=== PATIENT | female | born 1935 | race Caucasian/White ===

== ENCOUNTER → 2017-08-25 | Outpatient (CLI) | payer MEDICARE, MEDICAID, SELFPAY | PROVIDERS: Family Provider Internal Medicine Adolescent Medicine; Visit Provider Orthopaedic Surgery | DX: Z48.89 Encounter for other specified surgical aftercare (principal) | CPT/HCPCS: 73110 ==

== ENCOUNTER → 2017-09-15 14:21 | Outpatient (CLI) | payer MEDICARE, MEDICAID, SELFPAY ==
[2017-09-15 15:40] LABS: Ferritin 15 ng/mL (8-388)
[2017-09-17 08:27] LABS: Iron 19 ug/dL (27-139); UIBC 395 ug/dL (118-369)
[2017-09-17 17:02] LABS: Iron Saturation 5 % (15-55)
== END ==
PROVIDERS: PCP Internal Medicine Adolescent Medicine; Visit Provider Internal Medicine
DX: D50.9 Iron deficiency anemia, unspecified (principal)
CPT/HCPCS: 36415; 82728; 83550

== ENCOUNTER 2017-09-29 14:23 | Outpatient (CLI) | payer MEDICARE, MEDICAID, SELFPAY ==
[2017-09-29 15:15] VITALS: BP 122/47; PULSE 52; RESP 18; TEMP 36.6; O2SAT 100; BMI 34.7
[2017-09-29 15:30] VITALS: BP 139/64; PULSE 52; RESP 18
[2017-09-29 15:45] VITALS: BP 148/69; PULSE 57; RESP 18
[2017-09-29 16:00] VITALS: BP 146/65; PULSE 53; RESP 18
[2017-09-29 16:15] VITALS: BP 122/51; PULSE 58; RESP 18
== END 2017-09-29 16:30 | disposition home or self-care (01) ==
PROVIDERS: PCP Internal Medicine Adolescent Medicine; Visit Provider Internal Medicine
DX: D50.9 Iron deficiency anemia, unspecified (principal); T45.4X5A Adverse effect of iron and its compounds, initial encounter
CPT/HCPCS: 96365; J1756

== ENCOUNTER 2017-10-05 14:21 | Outpatient (CLI) | payer MEDICARE, MEDICAID, SELFPAY ==
[2017-10-05 14:21] VITALS: BMI 34.7
[2017-10-05 14:41] VITALS: BP 148/62; PULSE 69; RESP 18; TEMP 36.7; O2SAT 96
[2017-10-05 14:53] VITALS: BP 146/62; PULSE 58; RESP 18
[2017-10-05 15:05] VITALS: BP 153/56; PULSE 59; RESP 18
[2017-10-05 15:31] VITALS: BP 142/62; PULSE 55; RESP 18
== END 2017-10-05 15:40 | disposition home or self-care (01) ==
LOC: INF 14:21
PROVIDERS: Family Provider Internal Medicine Adolescent Medicine; PCP Internal Medicine Adolescent Medicine; Visit Provider Internal Medicine
DX: D50.9 Iron deficiency anemia, unspecified (principal); T45.4X5A Adverse effect of iron and its compounds, initial encounter
CPT/HCPCS: 96365; J1756

== ENCOUNTER 2017-10-15 14:25 | Outpatient (CLI) | payer MEDICARE, MEDICAID, SELFPAY ==
[2017-10-15 14:55] VITALS: BP 135/60; PULSE 57; RESP 18
[2017-10-15 15:25] VITALS: BP 135/63; PULSE 57; RESP 16
== END 2017-10-15 15:45 | disposition home or self-care (01) ==
LOC: INF 14:31
PROVIDERS: Family Provider Internal Medicine Adolescent Medicine; PCP Internal Medicine Adolescent Medicine; Visit Provider Internal Medicine
DX: D50.9 Iron deficiency anemia, unspecified (principal); T45.4X5A Adverse effect of iron and its compounds, initial encounter
CPT/HCPCS: 96365; J1756

== ENCOUNTER 2017-10-20 13:55 | Outpatient (CLI) | payer MEDICARE, MEDICAID, SELFPAY ==
[2017-10-20 14:25] VITALS: BP 143/57; PULSE 53; RESP 18; TEMP 36.4
[2017-10-20 14:55] VITALS: BP 148/58; PULSE 55; RESP 18
== END 2017-10-20 15:15 | disposition home or self-care (01) ==
LOC: INF 14:10
PROVIDERS: Family Provider Internal Medicine Adolescent Medicine; PCP Internal Medicine Adolescent Medicine; Visit Provider Internal Medicine
DX: D50.9 Iron deficiency anemia, unspecified (principal); T45.4X5A Adverse effect of iron and its compounds, initial encounter
CPT/HCPCS: 96365; J1756

== ENCOUNTER → 2017-10-25 13:16 | Outpatient (CLI) | payer MEDICARE, MEDICAID, SELFPAY ==
[2017-10-25 13:47] LABS: Basophils % 0.6 % (0.1-2.0); Eosinophils # 0.1 K/mm3 (0.0-0.4); Eosinophils % 1.7 % (0.1-12.0); Hematocrit 34.3 % (37.0-47.0); Hemoglobin 10.2 g/dL (12.2-16.2); Lymphocytes # 0.9 K/mm3 (0.7-4.5); Lymphocytes % 17.5 K/mm3 (10-50); Mean Corpuscular HGB Conc 29.8 g/dL (31.8-35.4); Mean Corpuscular Hemoglobin 26.6 pg (27.0-31.2); Mean Corpuscular Volume 89.2 fl (81-99); Mean Platelet Volume 7.7 fl (7.4-10.4); Monocytes # 0.3 K/mm3 (0.1-1.0); Monocytes % 6.6 % (1.7-9.3); Neutrophils # 3.7 K/mm3 (1.8-7.8); Neutrophils % 73.5 % (37.0-80.0); Platelet Count 251 K/mm3 (142-424); Red Blood Count 3.85 M/mm3 (4.20-5.40); Red Cell Distribution Width 21.1 % (11.5-17.5); White Blood Count 5.1 K/mm3 (4.8-10.8)
[2017-10-25 15:26] LABS: Alanine Aminotransferase 18 U/L (12-78); Albumin Level 3.4 gm/dL (3.4-5.0); Albumin/Globulin Ratio 1.3 (1.1-1.8); Alkaline Phosphatase 181 U/L (46-116); Anion Gap 16.6 mEq/L (5-15); Aspartate Amino Transferase 9 U/L (15-37); Bilirubin,Total 0.4 mg/dL (0.2-1.0); Blood Urea Nitrogen 22 mg/dL (7-18); Calcium 8.9 mg/dL (8.5-10.1); Carbon Dioxide 22 mmol/L (21.0-32.0); Chloride 108 mmol/L (98-107); Creatinine,Serum 1.67 mg/dL (0.55-1.02); Estimated Glomerular Filt Rate 29 ml/min (>60); GFR (African American) 36 ML/MIN (>60); Globulin 2.7 gm/dl (1.3-3.2); Glucose 102 mg/dL (74-106); Potassium 4.6 mmoL/L (3.5-5.1); Sodium 142 mmol/L (136-145); Total Protein,Serum 6.1 gm/dL (6.4-8.2)
[2017-10-25 15:55] LABS: Ferritin 251 ng/mL (8-388)
[2017-10-26 08:21] LABS: Iron 87 ug/dL (27-139); UIBC 236 ug/dL (118-369)
[2017-10-27 06:40] LABS: Iron Saturation 27 % (15-55)
== END ==
PROVIDERS: PCP Internal Medicine Adolescent Medicine; Visit Provider Internal Medicine
DX: D50.9 Iron deficiency anemia, unspecified (principal); T45.4X5A Adverse effect of iron and its compounds, initial encounter
CPT/HCPCS: 36415; 80053; 82728; 83550; 85025

== ENCOUNTER → 2017-11-17 09:44 | Outpatient (CLI) | payer MEDICARE, MEDICAID, SELFPAY ==
[2017-11-17 10:09] LABS: Basophils # 0.1 K/mm3 (0-0.2); Basophils % 0.8 % (0.1-2.0); Eosinophils # 0.2 K/mm3 (0.0-0.4); Eosinophils % 2.9 % (0.1-12.0); Hematocrit 39.7 % (37.0-47.0); Hemoglobin 11.6 g/dL (12.2-16.2); Lymphocytes % 16.6 K/mm3 (10-50); Mean Corpuscular HGB Conc 29.2 g/dL (31.8-35.4); Mean Corpuscular Hemoglobin 27.8 pg (27.0-31.2); Mean Corpuscular Volume 95.4 fl (81-99); Mean Platelet Volume 7.8 fl (7.4-10.4); Monocytes # 0.5 K/mm3 (0.1-1.0); Neutrophils # 4.1 K/mm3 (1.8-7.8); Neutrophils % 71.7 % (37.0-80.0); Platelet Count 233 K/mm3 (142-424); Red Blood Count 4.16 M/mm3 (4.20-5.40); Red Cell Distribution Width 20.9 % (11.5-17.5); White Blood Count 5.7 K/mm3 (4.8-10.8)
== END ==
PROVIDERS: Visit Provider Internal Medicine
DX: D50.9 Iron deficiency anemia, unspecified (principal)
CPT/HCPCS: 36415; 85025

== ENCOUNTER → 2018-02-08 15:04 | Outpatient (CLI) | payer MEDICARE, MEDICAID, SELFPAY ==
[2018-02-08 15:30] LABS: Basophils # 0.1 K/mm3 (0-0.2); Basophils % 0.9 % (0.1-2.0); Eosinophils # 0.2 K/mm3 (0.0-0.4); Eosinophils % 3.4 % (0.1-12.0); Hematocrit 39.9 % (37.0-47.0); Lymphocytes # 1.2 K/mm3 (0.7-4.5); Lymphocytes % 20.8 K/mm3 (10-50); Mean Corpuscular HGB Conc 30.1 g/dL (31.8-35.4); Mean Corpuscular Hemoglobin 29.3 pg (27.0-31.2); Mean Corpuscular Volume 97.3 fl (81-99); Mean Platelet Volume 7.3 fl (7.4-10.4); Monocytes # 0.4 K/mm3 (0.1-1.0); Monocytes % 6.8 % (1.7-9.3); Neutrophils # 3.8 K/mm3 (1.8-7.8); Neutrophils % 68.1 % (37.0-80.0); Platelet Count 207 K/mm3 (142-424); Red Cell Distribution Width 14.6 % (11.5-17.5); White Blood Count 5.5 K/mm3 (4.8-10.8)
== END ==
PROVIDERS: Visit Provider Internal Medicine
DX: D50.9 Iron deficiency anemia, unspecified (principal)
CPT/HCPCS: 36415; 85025

== ENCOUNTER → 2018-02-09 10:14 | Outpatient (CLI) | payer MEDICARE, MEDICAID, SELFPAY ==
--- NOTE | 2018-02-09 10:38 | XR_ITS ---
XR chest 2V HISTORY: ITS.REASON: CAD ORDERING PHYSICIAN: Jeremy Pride MD PATIENT AGE: 82 years COMPARISON: None FINDINGS: There is mild cardiomegaly without failure. No lobar consolidation or collapse. Chronic changes are present. Surgical clips are present in the left axilla. There is a small hiatal hernia. No acute bony anomalies. IMPRESSION: Cardiomegaly with chronic changes and deny hernia, no acute finding
[2018-02-09 11:06] LABS: Activated Partial Thrombo Time 29.4 seconds (23.6-34.0); INR 0.94 (0.9-1.1); Prothrombin Time 10.2 seconds (9.4-11.8)
[2018-02-09 11:11] LABS: Basophils % 0.9 % (0.1-2.0); Eosinophils # 0.2 K/mm3 (0.0-0.4); Eosinophils % 3.3 % (0.1-12.0); Hematocrit 42.9 % (37.0-47.0); Hemoglobin 12.7 g/dL (12.2-16.2); Lymphocytes % 20.5 K/mm3 (10-50); Mean Corpuscular HGB Conc 29.7 g/dL (31.8-35.4); Mean Corpuscular Hemoglobin 28.7 pg (27.0-31.2); Mean Corpuscular Volume 96.6 fl (81-99); Mean Platelet Volume 7.4 fl (7.4-10.4); Monocytes # 0.4 K/mm3 (0.1-1.0); Monocytes % 8.7 % (1.7-9.3); Neutrophils # 3.3 K/mm3 (1.8-7.8); Neutrophils % 66.6 % (37.0-80.0); Platelet Count 224 K/mm3 (142-424); Red Blood Count 4.43 M/mm3 (4.20-5.40); Red Cell Distribution Width 14.6 % (11.5-17.5)
[2018-02-09 11:58] LABS: Hemoglobin A1C 5.9 % (0.0-7.0)
[2018-02-09 14:45] LABS: Anion Gap 13.4 mEq/L (5-15); Blood Urea Nitrogen 20 mg/dL (7-18); Calcium 9.4 mg/dL (8.5-10.1); Carbon Dioxide 29 mmol/L (21.0-32.0); Chloride 105 mmol/L (98-107); Creatinine,Serum 1.39 mg/dL (0.55-1.02); Estimated Glomerular Filt Rate 36 ml/min (>60); GFR (African American) 44 ML/MIN (>60); Glucose 88 mg/dL (74-106); Potassium 4.4 mmoL/L (3.5-5.1); Sodium 143 mmol/L (136-145)
== END ==
PROVIDERS: Visit Provider Internal Medicine Adolescent Medicine
DX: Z01.818 Encounter for other preprocedural examination (principal); I25.10 Atherosclerotic heart disease of native coronary artery without angina pectoris; R73.9 Hyperglycemia, unspecified; D50.9 Iron deficiency anemia, unspecified; Z51.81 Encounter for therapeutic drug level monitoring
CPT/HCPCS: 36415; 71046; 80048; 83036; 85025; 85610; 85730

== ENCOUNTER → 2018-02-10 10:37 | Outpatient (CLI) | payer MEDICARE, MEDICAID, SELFPAY ==
--- NOTE | 2018-02-10 10:49 | CA_ITS ---
PROCEDURE: 2-D M-mode and color Doppler study INDICATIONS FOR THE TEST: Chest pain COPD Heart Murmur Tobacco Smoking Palpitations Fatigue Syncope Edema HypertensionxDiabetes Mellitus Rheumatic Fever SOB CURIEL Obesity Hyperlipidemia Family History HD Additional History CAD PATIENT INFORMATION HEIGHT: 5'5'' WEIGHT: 204 GENDER: Female B/P:153/71 2-D/M-MODE INTERPRETATION: 2-D MEASUREMENTS OBSERVED VALUES IN CMS Right Ventricular Dimension (RVDd) 2.6 Interventricular Septum (Thickness)(IVsd) 1.3 Left Ventricular Internal Dimensions(LVIDd) 4.5 Left Ventricular Posterior Wall (Thickness)(LVPWd) 1.3 Aortic Root 2.7 Aortic Cusp Separation 1.3 Left Atrial Dimensions (LAD) 4.0 2D 1. Left atrium is mildly enlarged, left ventricle is normal size, there is mild concentric left ventricular hypertrophy, visually estimated ejection fraction 55% with no obvious regional wall motion abnormality. 2. The right atrium and right ventricle are normal size and contractility. 3. The aortic valve is thickened and calcified leaflet continue to display mobility. 4. The mitral and tricuspid valve leaflets are minimally thickened. 5. The pulmonic valve is poorly visualized. 6. No significant pericardial effusion noted. DOPPLER INTERROGATION: Doppler interrogation of the aortic, mitral and tricuspid valvular presence of mild mitral and tricuspid regurgitation, mild aortic insufficiency also seen. Calculated right ventricular systolic pressure is 37 mmHg consistent with mild pulmonary hypertension, grade 1 diastolic dysfunction seen with tissue Doppler evidence of raised left atrial pressure. CONCLUSION: 1. Mildly enlarged left atrium, normal left ventricular size, mild concentric left ventricular hypertrophy, visually estimated ejection fraction 55% with no obvious regional wall motion abnormality, grade 1 diastolic dysfunction seen with tissue Doppler evidence of raised left atrial pressure. 2. Mild aortic, mild mitral and tricuspid regurgitation, calculated right ventricular systolic pressure is 37 mmHg consistent with mild pulmonary hypertension. 3. No significant pericardial effusion noted.
== END ==
PROVIDERS: Family Provider Internal Medicine Adolescent Medicine; PCP Internal Medicine Adolescent Medicine; Visit Provider Internal Medicine Cardiovascular Disease
DX: I25.10 Atherosclerotic heart disease of native coronary artery without angina pectoris (principal); D50.9 Iron deficiency anemia, unspecified
CPT/HCPCS: 93306

== ENCOUNTER → 2018-04-07 13:25 | Outpatient (CLI) | payer MEDICARE, MEDICAID, SELFPAY ==
--- NOTE | 2018-04-07 13:29 | CA_ITS ---
PROCEDURE: 2-D M-mode and color Doppler study INDICATIONS FOR THE TEST: Chest pain COPD+ Heart Murmur+ Tobacco Smoking Palpitations Fatigue+ Syncope Edema+ Hypertension+Diabetes Mellitus Rheumatic Fever SOB+CURIEL+Obesity+Hyperlipidemia+ Family History HD Additional History CAD, NEW ONSET AFIB PATIENT INFORMATION HEIGHT: 65 WEIGHT:206 GENDER: Female B/P:159/74 2-D/M-MODE INTERPRETATION: 2-D MEASUREMENTS OBSERVED VALUES IN CMS Right Ventricular Dimension (RVDd) 2.8 Interventricular Septum (Thickness)(IVsd) 1.6 Left Ventricular Internal Dimensions(LVIDd) 4.6 Left Ventricular Posterior Wall (Thickness)(LVPWd) 1.2 Aortic Root 3.0 Aortic Cusp Separation 2.0 Left Atrial Dimensions (LAD) 5.4 2D 1. Left atrium is moderately enlarged, left ventricle is normal size, mild concentric left ventricular hypertrophy, visually estimated ejection fraction of 55% with no obvious regional wall motion abnormality. 2. The right atrium is mildly enlarged, right ventricle is mildly dilated with normal contractility. 3. The aortic valve is thickened and calcified, leaflet continue to display mobility. 4. The mitral and tricuspid valve leaflets are minimally thickened. 5. The pulmonic valve is poorly visualized. 6. No significant pericardial effusion noted. DOPPLER INTERROGATION: Doppler interrogation of the aortic, mitral and tricuspid valvular presence of mild aortic, mild mitral and moderate tricuspid regurgitation, calculated right ventricular systolic pressure is 45 mmHg consistent with moderate pulmonary hypertension. CONCLUSION: 1. Biatrial enlargement, normal left ventricular size, mild concentric left ventricular hypertrophy, visually estimated ejection fraction 55% with no obvious regional wall motion abnormality. 2. Mild aortic, mild mitral and moderate tricuspid regurgitation, likely related right ventricular systolic pressure is 45 mmHg consistent with moderate pulmonary hypertension. 3. Mildly enlarged right ventricle with normal contractility. 4. No significant pericardial effusion noted.
[2018-04-07 14:08] LABS: INR 1.13 (0.9-1.1); Prothrombin Time 11.6 seconds (9.4-11.8)
[2018-04-07 14:19] LABS: Basophils % 0.5 % (0.1-2.0); Eosinophils # 0.1 K/mm3 (0.0-0.4); Eosinophils % 2.5 % (0.1-12.0); Hematocrit 32.7 % (37.0-47.0); Hemoglobin 9.7 g/dL (12.2-16.2); Lymphocytes # 0.7 K/mm3 (0.7-4.5); Lymphocytes % 14.9 K/mm3 (10-50); Mean Corpuscular HGB Conc 29.5 g/dL (31.8-35.4); Mean Corpuscular Hemoglobin 27.3 pg (27.0-31.2); Mean Corpuscular Volume 92.5 fl (81-99); Mean Platelet Volume 7.4 fl (7.4-10.4); Monocytes # 0.4 K/mm3 (0.1-1.0); Monocytes % 8.3 % (1.7-9.3); Neutrophils # 3.4 K/mm3 (1.8-7.8); Neutrophils % 73.8 % (37.0-80.0); Platelet Count 284 K/mm3 (142-424); Red Blood Count 3.53 M/mm3 (4.20-5.40); Red Cell Distribution Width 15.5 % (11.5-17.5); White Blood Count 4.6 K/mm3 (4.8-10.8)
[2018-04-07 14:33] LABS: Anion Gap 10.3 mEq/L (5-15); Blood Urea Nitrogen 21 mg/dL (7-18); Calcium 8.6 mg/dL (8.5-10.1); Carbon Dioxide 25 mmol/L (21.0-32.0); Chloride 113 mmol/L (98-107); Creatinine,Serum 1.73 mg/dL (0.55-1.02); Estimated Glomerular Filt Rate 28 ml/min (>60); GFR (African American) 34 ML/MIN (>60); Glucose 103 mg/dL (74-106); Potassium 4.3 mmoL/L (3.5-5.1); Sodium 144 mmol/L (136-145)
== END ==
PROVIDERS: Family Provider Internal Medicine Adolescent Medicine; PCP Internal Medicine Adolescent Medicine; Visit Provider Internal Medicine Adolescent Medicine
DX: I48.1 Persistent atrial fibrillation (principal); Z79.01 Long term (current) use of anticoagulants; Z51.81 Encounter for therapeutic drug level monitoring; D50.9 Iron deficiency anemia, unspecified
CPT/HCPCS: 36415; 80048; 85025; 85610; 85730; 93306

== ENCOUNTER 2018-04-13 12:10 | Outpatient (CLI) | payer MEDICARE, MEDICAID, SELFPAY ==
[2018-04-13 16:03] LABS: PHA INR Fingerstick 1.3 (0.9-1.1)
== END 2018-04-13 16:11 | disposition home or self-care (01) ==
LOC: ACC 12:12
PROVIDERS: PCP Internal Medicine Adolescent Medicine; Visit Provider Internal Medicine Adolescent Medicine
DX: Z79.01 Long term (current) use of anticoagulants (principal); Z51.81 Encounter for therapeutic drug level monitoring; I48.91 Unspecified atrial fibrillation
CPT/HCPCS: 85610; G0463

== ENCOUNTER → 2018-04-16 09:44 | Outpatient (CLI) | payer MEDICARE, MEDICAID, SELFPAY ==
[2018-04-16 10:07] LABS: Basophils % 0.6 % (0.1-2.0); Eosinophils # 0.2 K/mm3 (0.0-0.4); Eosinophils % 4.1 % (0.1-12.0); Hematocrit 31.9 % (37.0-47.0); Hemoglobin 9.4 g/dL (12.2-16.2); Lymphocytes # 0.6 K/mm3 (0.7-4.5); Lymphocytes % 18.1 K/mm3 (10-50); Mean Corpuscular HGB Conc 29.6 g/dL (31.8-35.4); Mean Corpuscular Hemoglobin 26.3 pg (27.0-31.2); Mean Platelet Volume 7.4 fl (7.4-10.4); Monocytes # 0.4 K/mm3 (0.1-1.0); Monocytes % 10.2 % (1.7-9.3); Neutrophils # 2.4 K/mm3 (1.8-7.8); Platelet Count 237 K/mm3 (142-424); Red Blood Count 3.58 M/mm3 (4.20-5.40); Red Cell Distribution Width 15.9 % (11.5-17.5); White Blood Count 3.6 K/mm3 (4.8-10.8)
[2018-04-16 10:15] LABS: INR 3.21 (0.9-1.1)
[2018-04-16 12:08] LABS: Anion Gap 11.6 mEq/L (5-15); Blood Urea Nitrogen 27 mg/dL (7-18); Calcium 8.5 mg/dL (8.5-10.1); Carbon Dioxide 28 mmol/L (21.0-32.0); Chloride 108 mmol/L (98-107); Creatinine,Serum 1.83 mg/dL (0.55-1.02); Estimated Glomerular Filt Rate 26 ml/min (>60); GFR (African American) 32 ML/MIN (>60); Glucose 84 mg/dL (74-106); Magnesium 1.7 mg/dL (1.4-2.2); Potassium 3.6 mmoL/L (3.5-5.1); Sodium 144 mmol/L (136-145)
== END ==
PROVIDERS: Visit Provider Internal Medicine Adolescent Medicine
DX: Z79.01 Long term (current) use of anticoagulants (principal); Z51.81 Encounter for therapeutic drug level monitoring; I48.91 Unspecified atrial fibrillation; D50.9 Iron deficiency anemia, unspecified; I10 Essential (primary) hypertension
CPT/HCPCS: 36415; 80048; 83735; 85025; 85610

== ENCOUNTER 2018-04-25 10:11 | Outpatient (CLI) | payer MEDICARE, MEDICAID, SELFPAY ==
[2018-04-25 10:54] LABS: PHA INR Fingerstick 2.5 (0.9-1.1)
== END 2018-04-25 11:02 | disposition home or self-care (01) ==
LOC: ACC 10:12
PROVIDERS: PCP Internal Medicine Adolescent Medicine; Visit Provider Internal Medicine Adolescent Medicine
DX: D50.9 Iron deficiency anemia, unspecified (principal); Z79.01 Long term (current) use of anticoagulants
CPT/HCPCS: 85610; 99211; G0463

== ENCOUNTER → 2018-05-06 13:14 | Outpatient (CLI) | payer MEDICARE, MEDICAID, SELFPAY ==
[2018-05-06 14:27] LABS: INR 1.81 (0.9-1.1); Prothrombin Time 18.3 seconds (9.4-11.8)
== END ==
PROVIDERS: Family Provider Internal Medicine Adolescent Medicine; PCP Internal Medicine Adolescent Medicine; Visit Provider Internal Medicine Adolescent Medicine
DX: Z79.01 Long term (current) use of anticoagulants (principal); Z51.81 Encounter for therapeutic drug level monitoring; I48.91 Unspecified atrial fibrillation
CPT/HCPCS: 36415; 85610

== ENCOUNTER → 2018-05-11 10:10 | Outpatient (CLI) | payer MEDICARE, MEDICAID, SELFPAY ==
[2018-05-11 13:35] LABS: Basophils % 0.4 % (0.1-2.0); Eosinophils # 0.2 K/mm3 (0.0-0.4); Eosinophils % 4.1 % (0.1-12.0); Hematocrit 31.5 % (37.0-47.0); Hemoglobin 9.5 g/dL (12.2-16.2); Lymphocytes # 0.9 K/mm3 (0.7-4.5); Lymphocytes % 23.1 K/mm3 (10-50); Mean Corpuscular HGB Conc 30.1 g/dL (31.8-35.4); Mean Corpuscular Volume 86.2 fl (81-99); Mean Platelet Volume 7.7 fl (7.4-10.4); Monocytes # 0.3 K/mm3 (0.1-1.0); Monocytes % 8.7 % (1.7-9.3); Neutrophils # 2.4 K/mm3 (1.8-7.8); Neutrophils % 63.6 % (37.0-80.0); Platelet Count 234 K/mm3 (142-424); Red Blood Count 3.65 M/mm3 (4.20-5.40); Red Cell Distribution Width 17.1 % (11.5-17.5); White Blood Count 3.8 K/mm3 (4.8-10.8)
[2018-05-11 13:54] LABS: Prothrombin Time 19.2 seconds (9.4-11.8)
[2018-05-11 14:02] LABS: Alanine Aminotransferase 19 U/L (12-78); Albumin Level 3.2 gm/dL (3.4-5.0); Albumin/Globulin Ratio 1.2 (1.1-1.8); Alkaline Phosphatase 186 U/L (46-116); Anion Gap 12.7 mEq/L (5-15); Aspartate Amino Transferase 24 U/L (15-37); Bilirubin,Total 0.7 mg/dL (0.2-1.0); Blood Urea Nitrogen 25 mg/dL (7-18); Calcium 8.7 mg/dL (8.5-10.1); Carbon Dioxide 26 mmol/L (21.0-32.0); Chloride 110 mmol/L (98-107); Creatinine,Serum 1.69 mg/dL (0.55-1.02); Estimated Glomerular Filt Rate 29 ml/min (>60); GFR (African American) 35 ML/MIN (>60); Globulin 2.6 gm/dl (1.3-3.2); Glucose 87 mg/dL (74-106); Potassium 4.7 mmoL/L (3.5-5.1); Sodium 144 mmol/L (136-145); Total Protein,Serum 5.8 gm/dL (6.4-8.2)
[2018-05-11 14:07] LABS: Activated Partial Thrombo Time 35.8 seconds (23.6-34.0)
== END ==
PROVIDERS: PCP Internal Medicine Adolescent Medicine; Visit Provider Internal Medicine Adolescent Medicine
DX: I48.1 Persistent atrial fibrillation (principal); I35.8 Other nonrheumatic aortic valve disorders; D50.9 Iron deficiency anemia, unspecified; Z79.01 Long term (current) use of anticoagulants
CPT/HCPCS: 36415; 80053; 83735; 85025; 85610; 85730

== ENCOUNTER 2018-06-01 11:00 | Outpatient (RCR) | payer MEDICARE, MEDICAID, SELFPAY ==
--- NOTE | 2018-05-13 15:23 | HMH.PTOPWND ---
Rehab Outpt Wound Evaluation Rehab OP Wound Evaluation Start: 05/13/18 15:04 Freq: Status: Active Protocol: Document 05/13/18 15:04 CHET (Rec: 05/13/18 15:22 PHOKYLE [id number]) Electronically Signed By Gilbert Casarez, PT 05/13/18 15:04 Subjective/History History History Pt is 82 yowf who presents with dori LE edema x ~ 2-3 mos with insidious onset of symptoms, However she did have left TKA just before edema began. She reports also having increased SOA over the same time preiord and requires rest breaks after even short bouts of ambulation (~ 25 ft). She reports no pain currently, but intermittent pain worse at night. She also c/o increased numbness/tingling and burning pain with standing or walking which is relieved quickly with sitting. She has hx of Right JOSE, left TKA ~ 3 mos ago, A- fib, COPD (former smoker), HTN , and CKD. Subjective Subjective No c/o pain this date, but some tenderness to palpation in dori lower legs. Severe 3+ pitting edema throughout dori LE. She also present Mildly positive trendelenburg sign on dori LE with good possibilty of PVD due to extensive smoking history. Lymphedema Eval Classification of Lymphedema Secondary Lymphedema Yes Stemmer's sign Stemmer's Sign no Stage of Lymphedema Lymphedema stages Stage I (Pitting edema, reduces w/ elevation, no fibrosis) Skin Changes Dry Skin Yes Redness Yes Affected Extremities Areas Affected by Lymphedema/Edema Right Lower Extremity Left Lower Extremity Manual Lymphatic Drainage Treatment Area MLD Treatment Area Right Lower Extremity Left Lower Extremity Wound Problems/Impairments Impairments Problems/Impairmments Palpation Tenderness Impaired Endurance Impaired Walking Impaired Standing
== END 2018-06-01 11:01 | disposition home or self-care (01) ==
LOC: PT 11:00
PROVIDERS: Family Provider Internal Medicine Adolescent Medicine; PCP Internal Medicine Adolescent Medicine; Visit Provider Internal Medicine Adolescent Medicine
DX: I89.0 Lymphedema, not elsewhere classified (principal)
CPT/HCPCS: 97140; 97163; 97760

== ENCOUNTER → 2018-11-03 14:25 | Outpatient (CLI) | payer MEDICARE, MEDICAID, SELFPAY ==
[2018-11-03 14:52] LABS: Basophils % 0.9 % (0.1-2.0); Eosinophils # 0.1 K/mm3 (0.0-0.4); Hematocrit 29.8 % (37.0-47.0); Hemoglobin 8.7 g/dL (12.2-16.2); Lymphocytes # 0.7 K/mm3 (0.7-4.5); Lymphocytes % 17.2 % (10-50); Mean Corpuscular HGB Conc 29.2 g/dL (31.8-35.4); Mean Corpuscular Hemoglobin 29.1 pg (27.0-31.2); Mean Corpuscular Volume 99.7 fl (81-99); Mean Platelet Volume 8.3 fl (7.4-10.4); Monocytes # 0.3 K/mm3 (0.1-1.0); Monocytes % 7.5 % (1.7-9.3); Neutrophils # 3.1 K/mm3 (1.8-7.8); Neutrophils % 71.5 % (37.0-80.0); Platelet Count 269 K/mm3 (142-424); Red Blood Count 2.99 M/mm3 (4.20-5.40); Red Cell Distribution Width 15.5 % (11.5-17.5); White Blood Count 4.3 K/mm3 (4.8-10.8)
[2018-11-03 15:58] LABS: Alanine Aminotransferase 16 U/L (12-78); Albumin Level 3.4 gm/dL (3.4-5.0); Albumin/Globulin Ratio 1.2 (1.1-1.8); Alkaline Phosphatase 166 U/L (46-116); Anion Gap 17.6 mEq/L (5-15); Aspartate Amino Transferase 8 U/L (15-37); Bilirubin,Total 0.2 mg/dL (0.2-1.0); Blood Urea Nitrogen 29 mg/dL (7-18); Calcium 8.9 mg/dL (8.5-10.1); Carbon Dioxide 22 mmol/L (21.0-32.0); Chloride 109 mmol/L (98-107); Creatinine,Serum 1.96 mg/dL (0.55-1.02); Estimated Glomerular Filt Rate 24 ml/min (>60); Ferritin 15 ng/mL (8-388); GFR (African American) 29 ML/MIN (>60); Globulin 2.8 gm/dl (1.3-3.2); Glucose 101 mg/dL (74-106); Potassium 4.6 mmoL/L (3.5-5.1); Sodium 144 mmol/L (136-145); Total Protein,Serum 6.2 gm/dL (6.4-8.2)
[2018-11-05 07:32] LABS: Iron 31 ug/dL (27-139); UIBC 397 ug/dL (118-369)
[2018-11-07 13:14] LABS: Folate 13.6 ng/mL (>3.0); Iron Saturation 7 % (15-55); Vitamin B12 191 pg/mL (232-1245)
== END ==
PROVIDERS: Visit Provider Internal Medicine Medical Oncology
DX: D50.9 Iron deficiency anemia, unspecified (principal)
CPT/HCPCS: 36415; 80053; 82607; 82728; 82746; 83540; 83550; 85025

== ENCOUNTER 2018-11-14 13:10 | Outpatient (CLI) | payer MEDICARE, MEDICAID, SELFPAY ==
[2018-11-14 13:20] VITALS: BMI 30.7
[2018-11-14 13:47] LABS: Phosphorous 4.4 mg/dL (2.4-4.9)
[2018-11-14 14:10] VITALS: BP 135/73; PULSE 69; RESP 18; O2SAT 96
[2018-11-14 15:00] VITALS: BP 146/70; PULSE 60; RESP 18
== END 2018-11-14 15:00 | disposition home or self-care (01) ==
LOC: INF 13:17
PROVIDERS: Visit Provider Internal Medicine Medical Oncology
DX: D50.9 Iron deficiency anemia, unspecified (principal); T45.4X5A Adverse effect of iron and its compounds, initial encounter
CPT/HCPCS: 84100; 96365; J1439

== ENCOUNTER 2018-11-21 13:22 | Outpatient (CLI) | payer MEDICARE, MEDICAID, SELFPAY ==
[2018-11-21 13:13] VITALS: BP 120/65; PULSE 53; RESP 18; TEMP 36.6; O2SAT 92
[2018-11-21 13:33] VITALS: BP 135/71; PULSE 54; RESP 18; TEMP 36.6; O2SAT 92
[2018-11-21 13:40] VITALS: BMI 31.1
[2018-11-21 13:55] VITALS: BP 138/63; PULSE 54; RESP 18; TEMP 36.3; O2SAT 92
== END 2018-11-21 13:55 | disposition home or self-care (01) ==
LOC: INF 13:22
PROVIDERS: Visit Provider Internal Medicine Medical Oncology
DX: D50.9 Iron deficiency anemia, unspecified (principal); T45.4X5A Adverse effect of iron and its compounds, initial encounter
CPT/HCPCS: 96365; J1439

== ENCOUNTER → 2019-09-28 12:23 | Outpatient (CLI) | payer MEDICARE, SELFPAY ==
[2019-09-28 12:42] LABS: Basophils % 0.5 % (0.1-2.0); Eosinophils # 0.2 K/mm3 (0.0-0.4); Eosinophils % 3.3 % (0.1-12.0); Lymphocytes # 0.5 K/mm3 (0.7-4.5); Lymphocytes % 11.9 % (10-50); Mean Corpuscular HGB Conc 30.7 g/dL (31.8-35.4); Mean Corpuscular Hemoglobin 30.3 pg (27.0-31.2); Mean Corpuscular Volume 98.8 fl (81-99); Mean Platelet Volume 7.9 fl (7.4-10.4); Monocytes # 0.3 K/mm3 (0.1-1.0); Monocytes % 7.5 % (1.7-9.3); Neutrophils # 3.5 K/mm3 (1.8-7.8); Neutrophils % 76.8 % (37.0-80.0); Platelet Count 256 K/mm3 (142-424); Red Blood Count 2.87 M/mm3 (4.20-5.40); Red Cell Distribution Width 14.7 % (11.5-17.5); White Blood Count 4.6 K/mm3 (4.8-10.8)
[2019-09-28 12:54] LABS: Hematocrit 28.7 % (37.0-47.0); Hemoglobin 8.8 g/dL (12.2-16.2)
[2019-09-28 14:59] LABS: Alanine Aminotransferase 10 U/L (12-78); Albumin Level 3.3 gm/dL (3.4-5.0); Albumin/Globulin Ratio 1.5 (1.1-1.8); Alkaline Phosphatase 154 U/L (46-116); Anion Gap 15.5 mEq/L (5-15); Aspartate Amino Transferase 10 U/L (15-37); Bilirubin,Total 0.3 mg/dL (0.2-1.0); Blood Urea Nitrogen 30 mg/dL (7-18); Calcium 8.4 mg/dL (8.5-10.1); Carbon Dioxide 23 mmol/L (21.0-32.0); Chloride 111 mmol/L (98-107); Creatinine,Serum 2.21 mg/dL (0.55-1.02); Estimated Glomerular Filt Rate 21 ml/min (>60); Ferritin 36 ng/mL (8-388); GFR (African American) 26 ML/MIN (>60); Globulin 2.2 gm/dl (1.3-3.2); Glucose 85 mg/dL (74-106); Potassium 4.5 mmoL/L (3.5-5.1); Sodium 145 mmol/L (136-145); Total Protein,Serum 5.5 gm/dL (6.4-8.2)
[2019-09-29 13:30] LABS: Iron 46 ug/dL (27-139); UIBC 282 ug/dL (118-369)
[2019-09-30 09:27] LABS: Iron Saturation 14 % (15-55)
== END ==
PROVIDERS: Visit Provider Internal Medicine Medical Oncology
DX: D50.9 Iron deficiency anemia, unspecified (principal)
CPT/HCPCS: 36415; 80053; 82728; 83540; 83550; 85025

== ENCOUNTER → 2019-10-02 08:51 | Outpatient (CLI) | payer MEDICARE, SELFPAY ==
[2019-10-03 14:58] LABS: Albumin 3.3 g/dL (2.9-4.4); Alpha-1-Globulin 0.3 g/dL (0.0-0.4); Alpha-2-Globulin 0.6 g/dL (0.4-1.0); Gamma Globulin 0.4 g/dL (0.4-1.8); Immunoglobulin A, Qn 150 mg/dL (64-422); Immunoglobulin G, Qn 413 mg/dL (700-1600); Protein, Total 5.5 g/dL (6.0-8.5)
[2019-10-03 17:24] LABS: Free Kappa Lt Chains 27.9 mg/L (3.3-19.4); Free Lambda Lt Chains 22.6 mg/L (5.7-26.3)
[2019-10-04 10:47] LABS: Immunoglobulin M, Qn 56 mg/dL (26-217)
== END ==
PROVIDERS: PCP Internal Medicine Adolescent Medicine; Visit Provider Internal Medicine Medical Oncology
DX: D50.9 Iron deficiency anemia, unspecified (principal)
CPT/HCPCS: 36415; 82784; 83883; 84155; 84165; 86334

== ENCOUNTER 2019-10-10 14:12 | Outpatient (CLI) | payer MEDICARE, MEDICAID, SELFPAY ==
[2019-10-10 14:15] VITALS: BP 134/69; PULSE 45; RESP 18; TEMP 36.4; O2SAT 93
[2019-10-10 15:00] VITALS: BP 129/68; PULSE 49; RESP 18; O2SAT 94
== END 2019-10-10 15:00 | disposition home or self-care (01) ==
LOC: INF 14:13
PROVIDERS: Visit Provider Internal Medicine Medical Oncology
DX: D50.9 Iron deficiency anemia, unspecified (principal); T45.4X5A Adverse effect of iron and its compounds, initial encounter
CPT/HCPCS: 96365; J1439

== ENCOUNTER 2019-10-17 14:10 | Outpatient (CLI) | payer MEDICARE, MEDICAID, SELFPAY ==
[2019-10-17 14:51] VITALS: BP 110/46; PULSE 55; RESP 18; TEMP 36.6; O2SAT 95
[2019-10-17 15:10] VITALS: BP 120/57; PULSE 53; RESP 16; TEMP 36.4; O2SAT 94
[2019-10-17 15:25] VITALS: BP 118/64; PULSE 58; RESP 18
[2019-10-17 15:40] VITALS: BP 121/56; PULSE 53; RESP 18; TEMP 36.6; O2SAT 95
== END 2019-10-17 15:45 | disposition home or self-care (01) ==
LOC: INF 14:10
PROVIDERS: Visit Provider Internal Medicine Medical Oncology
DX: D50.9 Iron deficiency anemia, unspecified (principal); T45.4X5A Adverse effect of iron and its compounds, initial encounter
CPT/HCPCS: 96365; J1439

== ENCOUNTER → 2019-11-07 13:40 | Outpatient (CLI) | payer MEDICARE, MEDICAID, SELFPAY ==
--- NOTE | 2019-11-07 13:48 | CA_ITS ---
APPROVED REPORT EXAM: Comprehensive 2D, Doppler, and color-flow Echocardiogram Development Assistant: Stephanie Damon RVT Ht: 5 ft 5 in Wt: 184lbs BSA: 1.91 BP: 93/39 mmHg Indications: Murmur, Shortness of Breath, Hypertension 2D Dimensions LVOT 1.73 cm (M/F) 1.5-2.5 M-Mode Dimensions RVDd 2.37 cm (0.9-2.6) LVDd 5.74 cm (3.5-5.7) LVDs 3.28 cm (3.5-5.7) IVSd 1.09 cm (0.6-1.1) PWd 1.11 cm (0.6-1.1) EF (Teich) 73.20% FS 42.90% EDV (Teich) 162.60 mL ESV (Teich) 43.50 mL LV Diastology E/A Ratio 1.11 Aortic Valve LVOT Max 242.00 (70-110 cm/s) LVOT VTI 60.78 cm Mitral Valve MV A Velocity 74.00 (40-130 cm/s) Left Ventricle Left atrium is mildly enlarged, left ventricle is normal size, mild concentric left ventricular hypertrophy, visually estimated ejection fraction 55% with no regional wall motion abnormality, grade 2 diastolic dysfunction seen without tissue Doppler evidence of raise left atrial pressure. Right Ventricle Right atrium and right ventricular mildly enlarged with normal contractility. Aortic Valve Aortic valve is thickened and calcified with mild restriction to leaflet mobility. The mean gradient across aortic valve is 15 mmHg, there is mild aortic insufficiency present. Mitral Valve Mitral valve leaflets are minimally thickened, there is no mitral stenosis, there is mild mitral regurgitation. Tricuspid Valve Tricuspid valve is grossly normal, there is mild tricuspid regurgitation, calculated right ventricular systolic pressure is between 40 to 50 mmHg. Pulmonic Valve Pulmonic valve is poorly visualized. Great Vessels Aortic root is normal size. Pericardium No significant pericardial effusion noted. Conclusion 1. Biatrial alignment, normal left ventricular size, mild concentric left ventricular hypertrophy, visually estimated ejection fraction 55% with no regional wall motion abnormality, grade 2 diastolic dysfunction seen without tissue Doppler evidence of raise left atrial pressure. 2. Thickened and calcified aortic valve with mean gradient across valve of 15 mmHg, represents mild aortic stenosis, there is mild aortic insufficiency. 3. Mild mitral and tricuspid regurgitation, calculated right ventricular systolic pressure is between 40 to 50 mmHg. 4. No significant pericardial effusion noted. Electronically signed by : Carlos Monsivais, 11/08/2019 05:52:22
== END ==
PROVIDERS: PCP Internal Medicine Adolescent Medicine; Visit Provider Nurse Practitioner Family
DX: I10 Essential (primary) hypertension (principal); I77.1 Stricture of artery; R06.02 Shortness of breath
CPT/HCPCS: 93306

== ENCOUNTER → 2019-11-13 09:57 | Outpatient (CLI) | payer MEDICARE, MEDICAID, SELFPAY ==
--- NOTE | 2019-11-13 | CA_ITS ---
APPROVED REPORT Instrument Adjuster: NINA Laterality: Bilateral Indications: HTN, eloquis AFIB, ex smoker, dizziness, hx of syncope Risk Factors Hypertension: Doppler Spectral Velocity Analysis ECA (R) 223.80/23.90 cm/s ECA (L) 166.80/10.70 cm/s dICA (R) 137.60/36.50 cm/s dICA (L) 134.90/30.70 cm/s Wu (R) 167.50/39.80 cm/s Wu (L) 248.50/53.80 cm/s pICA (R) 84.80/19.70 cm/s pICA (L) 117.90/39.70 cm/s dCCA (R) 107.60/17.90 cm/s dCCA (L) 86.50/13.70 cm/s pCCA (R) 121.50/12.00 cm/s pCCA (L) 154.00/20.00 cm/s Vert (R) 112.80/34.80 cm/s Vert (L) 60.80/12.00 cm/s ICA/CCA 1.60 ICA/CCA 2.90 Conclusion Duplex evaluation demonstrates stenosis of the right proximal internal carotid artery <20% with PSV <140 cm/sec, EDV <100 cm/sec, and IC/CC Ratio <4.0.Duplex evaluation demonstrates stenosis of the left proximal internal carotid artery in the range of 20-49% with PSV <140 cm/sec, EDV <100 cm/sec, and IC/CC Ratio <4.0. Elevated pressures seen due to tortuosity bilaterally. Electronically signed by : Constantin Peterson MD 11/13/2019 17:21:41
== END ==
PROVIDERS: PCP Internal Medicine Adolescent Medicine; Visit Provider Nurse Practitioner Family
DX: R09.89 Other specified symptoms and signs involving the circulatory and respiratory systems (principal)
CPT/HCPCS: 93880

== ENCOUNTER 2019-12-28 21:18 | Emergency (ER) | payer MEDICARE, MEDICAID, SELFPAY ==
[2019-12-28 21:22] VITALS: BMI 27.4
--- NOTE | 2019-12-28 21:23 | XR_ITS ---
PROCEDURE: XR CHEST PORTABLE CLINICAL HISTORY: fall Posttraumatic pain, trauma protocol/injury with pain COMPARISON: CXR CHEST(2 VIEWS-NOT PORTABLE) from 07/06/2017 CXR2V XR chest 2V from 02/09/2018 CXR1VP XR chest portable from 06/04/2018 FINDINGS: Moderate cardiomegaly without failure. There is increased density in the lower chest centrally consistent with hiatal hernia. No lobar consolidation or collapse. There are surgical clips in the left axilla. No acute bony abnormalities. IMPRESSION: Cardiomegaly with hiatal hernia. No acute finding Dictated by: Constantin Peterson MD 12/29/2019 06:27 Electronically signed by Constantin Peterson MD in [facility] 12/29/2019 06:27
--- NOTE | 2019-12-28 21:23 | CT_ITS ---
PROCEDURE: CT HEAD/BRAIN WO CON CLINICAL INDICATION: fall, no loc Posttraumatic pain, contusion, blunt trauma with contusion or hematoma COMPARISON: No exams were available for comparison TECHNIQUE: Axial images obtained. All CT scans at the facility use one or more dose reduction, viz: automated exposure control, ma/kV adjustment per patient size (including targeted exams where dose is matched to indication, i.e. head), or iterative reconstruction technique. FINDINGS: No midline shift, mass effect, intracranial hemorrhage, hydrocephalus, or extra-axial fluid collection is evident. 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 There is generalized atrophy with hypoattenuation of the periventricular white matter consistent with microangiopathic changes. The calvarium has an unremarkable appearance. No mastoid effusion. No sinus air-fluid level. IMPRESSION: No acute intracranial finding Dictated by: Constantin Peterson MD 12/29/2019 06:31 Electronically signed by Constantin Peterson MD in [facility] 12/29/2019 06:31
--- NOTE | 2019-12-28 21:23 | CT_ITS ---
PROCEDURE: CT FACIAL BONES WO CON CLINICAL HISTORY: fall, no loc Posttraumatic pain, fall with injury and pain, facial contusion or hematoma with blunt trauma COMPARISON: No exams were available for comparison TECHNIQUE: Axial images obtained with sagittal and coronal reformats. All CT scans at the facility use one or more dose reduction, viz: automated exposure control, ma/kV adjustment per patient size (including targeted exams where dose is matched to indication, i.e. head), or iterative reconstruction technique. FINDINGS: No fracture or dislocation. No sinus air-fluid level. There is slight increased soft tissue attenuation in the right maxillary region. Prior bilateral ocular surgery IMPRESSION: 1. No acute fracture. 2. Probable small soft tissue contusion right maxillary region Dictated by: Constantin Peterson MD 12/29/2019 06:52 Electronically signed by Constantin Peterson MD in [facility] 12/29/2019 06:52
--- NOTE | 2019-12-28 21:23 | XR_ITS ---
PROCEDURE: XR PELVIS 1-2V CLINICAL INDICATION: fall Posttraumatic pain, fall with injury and pain COMPARISON: No exams were available for comparison TECHNIQUE: XR Pelvis AP View FINDINGS: No fracture or dislocation is evident. There is a total right hip prosthesis present. The distal stent in of the femoral component is not included on the exam. No lytic or blastic change. IMPRESSION: Right total hip prosthesis present, no acute fracture apparent Dictated by: Constantin Peterson MD 12/29/2019 06:26 Electronically signed by Constantin Peterson MD in [facility] 12/29/2019 06:26
--- NOTE | 2019-12-28 21:23 | CT_ITS ---
PROCEDURE: CT CERVICAL SPINE WO CON CLINICAL INDICATION: fall, no loc Posttraumatic pain, fall with injury and pain, pain and swelling, neck pain following injury COMPARISON: No exams were available for comparison TECHNIQUE: Axial images obtained with sagittal and coronal reformats. All CT scans at the facility use one or more dose reduction, viz: automated exposure control, ma/kV adjustment per patient size (including targeted exams where dose is matched to indication, i.e. head), or iterative reconstruction technique. Axial spiral CT scanning performed of the cervical spine beginning at the base of the skull and continuing to the upper T-spine. 3-D multiplanar reconstruction with 3-D manipulation of volumetric data set in image rendering was completed by the radiologist and/or technologist with the supervision of the radiologist on independent workstation. FINDINGS: Normal alignment. No acute fracture or dislocation. Mild multilevel cervical spondylosis is present. There is 3 mm anterolisthesis of C4 on C5 and C5 on C6 with degenerative disc disease at C3-C4, C4-C5, and C5-C6. Centrilobular emphysema noted in the lung apexes with pleural thickening in the right apex. There is some nodularity of the thyroid gland and scattered small nodes in the neck. IMPRESSION: Degenerative changes, no acute fracture Dictated by: Constantin Peterson MD 12/29/2019 06:34 Electronically signed by Constantin Peterson MD in [facility] 12/29/2019 06:34
--- NOTE | 2019-12-28 21:28 | XR_ITS ---
PROCEDURE: XR ELBOW LT MIN 3V CLINICAL INDICATION: fall Posttraumatic pain COMPARISON: No exams were available for comparison FINDINGS: No fracture or dislocation. No lytic or blastic change. There is normal mineralization. The joint spaces are well-preserved. No significant degenerative/arthritic changes. No erosive changes evident. Other findings:None. IMPRESSION: No acute findings. Dictated by: Constantin Peterson MD 12/29/2019 06:24 Electronically signed by Constantin Peterson MD in [facility] 12/29/2019 06:24
--- NOTE | 2019-12-28 21:29 | PC.NURSE ---
placed in cervical collar at this time. pt placed in gown. rad at bedside waiting on iv initiation to finish.
[2019-12-28 21:30] VITALS: BP 176/82; PULSE 63; RESP 17; TEMP 36.7; O2SAT 94; BMI 29.9
[2019-12-28 21:44] LABS: Basophils % 0.9 % (0.1-2.0); Eosinophils # 0.1 K/mm3 (0.0-0.4); Eosinophils % 3.4 % (0.1-12.0); Hematocrit 29.8 % (37.0-47.0); Hemoglobin 9.3 g/dL (12.2-16.2); Lymphocytes # 0.7 K/mm3 (0.7-4.5); Lymphocytes % 17.7 % (10-50); Mean Corpuscular Hemoglobin 29.9 pg (27.0-31.2); Mean Corpuscular Volume 96.3 fl (81-99); Mean Platelet Volume 8.6 fl (7.4-10.4); Monocytes # 0.3 K/mm3 (0.1-1.0); Monocytes % 8.8 % (1.7-9.3); Neutrophils # 2.6 K/mm3 (1.8-7.8); Neutrophils % 69.2 % (37.0-80.0); Platelet Count 214 K/mm3 (142-424); White Blood Count 3.8 K/mm3 (4.8-10.8)
[2019-12-28 21:47] LABS: Chloride 110 mmol/L (98-107)
[2019-12-28 21:48] LABS: Potassium 4.5 mmoL/L (3.5-5.1); Sodium 139 mmol/L (136-145)
[2019-12-28 21:50] LABS: Blood Urea Nitrogen 29 mg/dl (7-17); Creatinine Clearance Estimated 28 mL/min (50-200); Estimated Glomerular Filt Rate 25 ml/min (>60); GFR (African American) 30 ML/MIN (>60)
[2019-12-28 21:51] LABS: Anion Gap 12.5 mEq/L (5-15); Calcium 9.4 mg/dl (8.4-10.2); Carbon Dioxide 21 mmol/L (22.0-30.0); Glucose 103 mg/dl (74-100); INR 1.04 (0.9-1.1); Prothrombin Time 10.8 seconds (9.4-11.8)
--- NOTE | 2019-12-28 22:17 | PC.NURSE ---
ct cervical spine negative. ccollar removed per protocol
--- NOTE | 2019-12-28 22:38 | HMH.EDFALL ---
ED Disposition Clinical Impression: Renal insufficiency, Abrasion Facial contusion Qualifiers: Encounter type: initial encounter Qualified Code(s): S00.83XA - Contusion of other part of head, initial encounter Head contusion Qualifiers: Encounter type: initial encounter Contusion of head detail: scalp Qualified Code(s): S00.03XA - Contusion of scalp, initial encounter Concussion without loss of consciousness Qualifiers: Encounter type: initial encounter Qualified Code(s): S06.0X0A - Concussion without loss of consciousness, initial encounter Disposition: Home, Self-Care Condition on Discharge: Good Instructions: How to Prevent Falls Additional Instructions: call pcp in am Referrals: Jeremy Pride MD [Primary Care Provider] - - Critical Care Critical Care Time: No Attestation: On 12/28/19, the high probability of a clinically significant, sudden or life threatening deterioration of the following system(s) required my full and direct attention, intervention and personal management. The time I documented below is in addition to time spent performing reported procedures but includes the following listed in this critical care notation. Medical Decision Making - Medical Records Medical records reviewed: Yes: I reviewed the patient's medical records. - Dirk Inquiry Pt receiving controlled substance: No Vital Signs: 12/28/19 21:30 12/28/19 22:47 Temperature 98.1 F Temperature Source Oral Pulse Rate [Right Brachial] 63 68 Respiratory Rate 17 17 Blood Pressure [Right Arm] 176/82 H 169/68 H Blood Pressure Mean [Right Arm] 113 101 Blood Pressure Source [Right Arm] Automatic Cuff Automatic Cuff Blood Pressure Position [Right Arm] Sitting Sitting 02 Sat by Pulse Oximetry 94 L 94 L Oxygen Delivery Method Room Air Room Air - Lab Data Lab results reviewed: Yes: I reviewed the patient's lab results. Lab Results 12/28/19 21:35: WBC 3.8 L, RBC 3.10 L, Hgb 9.3 L, Hct 29.8 L, MCV 96.3, MCH 29.9, MCHC 31.0 L, RDW 15.0, Plt Count 214, MPV 8.6, Neut % (Auto) 69.2, Lymph % (Auto) 17.7, [place] % (Auto) 8.8, Eos % (Auto) 3.4, Baso % (Auto) 0.9, Neut # (Auto) 2.6, Lymph # (Auto) 0.7, [place] # (Auto) 0.3, Eos # (Auto) 0.1, Baso # (Auto) 0.0 12/28/19 21:35: Sodium 139, Potassium 4.5, Chloride 110 H, Carbon Dioxide 21 L, Anion Gap 12.5, BUN 29 H, Creatinine 1.90 H, Estimated Creat Clear 28, Estimated GFR 25 L, Est GFR ( Amer) 30 L, Glucose 103 H, Calcium 9.4 12/28/19 21:35: PT 10.8, INR 1.04 Result diagrams: 12/28/19 21:35 12/28/19 21:35 Orders (Tests/Meds): ORDERS Category Date Time Status CT cervical spine wo con Stat Cat Scan 12/28/19 21:[address] facial bones wo con Stat Cat Scan 12/28/19 21:[address] head/brain wo con Stat Cat Scan 12/28/19 21:23 Taken Elbow XR left mininum 3 views [XR elbow LT min 3V] Stat Exams 12/28/19 21:28 Taken XR chest portable Stat Exams 12/28/19 21:23 Taken XR pelvis 1-2V Stat Exams 12/28/19 21:23 Taken - Radiology Data #1 Image(s): Chest, Elbow, Pelvis Image Reviewed: Yes I reviewed the patient's radiology image Preliminary Findings: No Fracture Seen - CT Data CT Scan: Head, C-Spine, Sinus Time Received: 23:[address] Reviewed: Yes: I have viewed the radiologist's interpretation Preliminary Findings: No Fracture Seen - Reevaluation(s) Time: 23:21 Reevaluation #1: doing ok - no focal changes Medical Decision Narrative: fall prob trip but will check labs and on blood thinner will need ct eval of head and also need xrays for possible fx - no evid of spinal cord syndrome Fall HPI - General Chief Complaint: Fall Stated Complaint: AO [id number] injured hit head,Lac to nose Time Seen by Provider: 12/28/19 21:45 Mode of Arrival: Ambulatory Source of Information: Patient, EMS, Medical Record Limitations: No Limitations Description of Symptoms (Recalled from ER Triage Doc. by RN): Patient reports she tripped over a pillow when walking to
[2019-12-28 22:47] VITALS: BP 169/68; PULSE 68; RESP 17; O2SAT 94
[2019-12-28 23:17] VITALS: BP 160/82; PULSE 68; RESP 16; TEMP 36.1; O2SAT 98
== END 2019-12-28 23:32 | disposition home or self-care (01) ==
PROVIDERS: Emergency Provider Emergency Medicine; PCP Internal Medicine Adolescent Medicine
DX: S06.0X0A Concussion without loss of consciousness, initial encounter (principal); S00.03XA Contusion of scalp, initial encounter; W01.0XXA Fall on same level from slipping, tripping and stumbling without subsequent striking against object, initial encounter; Y92.019 Unspecified place in single-family (private) house as the place of occurrence of the external cause; I48.91 Unspecified atrial fibrillation; I10 Essential (primary) hypertension; E78.5 Hyperlipidemia, unspecified; F41.8 Other specified anxiety disorders; Z96.641 Presence of right artificial hip joint; Z88.0 Allergy status to penicillin; Z88.2 Allergy status to sulfonamides
CPT/HCPCS: 70450; 70486; 71045; 72125; 72170; 73080; 80048; 85025; 85610; 99283

== ENCOUNTER → 2020-01-30 13:25 | Outpatient (CLI) | payer MEDICARE, MEDICAID, SELFPAY ==
[2020-01-30 14:27] LABS: Basophils % 0.7 % (0.1-2.0); Eosinophils # 0.1 K/mm3 (0.0-0.4); Eosinophils % 3.7 % (0.1-12.0); Hematocrit 29.6 % (37.0-47.0); Hemoglobin 9.4 g/dL (12.2-16.2); Lymphocytes # 0.8 K/mm3 (0.7-4.5); Lymphocytes % 21.3 % (10-50); Mean Corpuscular HGB Conc 31.6 g/dL (31.8-35.4); Mean Corpuscular Hemoglobin 29.8 pg (27.0-31.2); Mean Corpuscular Volume 94.4 fl (81-99); Mean Platelet Volume 7.3 fl (7.4-10.4); Monocytes # 0.3 K/mm3 (0.1-1.0); Neutrophils # 2.4 K/mm3 (1.8-7.8); Neutrophils % 65.4 % (37.0-80.0); Platelet Count 213 K/mm3 (142-424); Red Blood Count 3.14 M/mm3 (4.20-5.40); Red Cell Distribution Width 15.6 % (11.5-17.5); White Blood Count 3.6 K/mm3 (4.8-10.8)
[2020-01-30 17:46] LABS: Ferritin 14.7 ng/ml (11.1-264)
[2020-02-01 09:11] LABS: Iron 65 ug/dL (27-139); UIBC 305 ug/dL (118-369)
[2020-02-01 09:59] LABS: Iron Saturation 18 % (15-55)
== END ==
PROVIDERS: Visit Provider Internal Medicine Medical Oncology
DX: D50.9 Iron deficiency anemia, unspecified (principal)
CPT/HCPCS: 36415; 82728; 83540; 83550; 85025

== ENCOUNTER 2020-02-07 13:26 | Outpatient (CLI) | payer MEDICARE, MEDICAID, SELFPAY ==
[2020-02-07 13:37] VITALS: BP 131/50; PULSE 54; RESP 18; TEMP 36.7; O2SAT 97
[2020-02-07 14:15] VITALS: BP 156/54; PULSE 57; RESP 18; O2SAT 97
== END 2020-02-07 14:20 | disposition home or self-care (01) ==
LOC: INF 13:26
PROVIDERS: Visit Provider Internal Medicine Medical Oncology
DX: D50.9 Iron deficiency anemia, unspecified (principal); T45.4X5A Adverse effect of iron and its compounds, initial encounter
CPT/HCPCS: 96365; J1439

== ENCOUNTER 2020-02-13 13:12 | Outpatient (CLI) | payer MEDICARE, MEDICAID, SELFPAY ==
[2020-02-13 13:26] VITALS: BP 128/67; PULSE 59; RESP 18; TEMP 36.5; O2SAT 96
[2020-02-13 14:05] VITALS: BP 131/74; PULSE 68; RESP 18; O2SAT 97
== END 2020-02-13 14:05 | disposition home or self-care (01) ==
LOC: INF 13:12
PROVIDERS: Visit Provider Internal Medicine Medical Oncology
DX: D50.9 Iron deficiency anemia, unspecified (principal)
CPT/HCPCS: 96365; J1439

== ENCOUNTER 2020-02-25 09:45 | Emergency (ER) | payer MEDICARE, MEDICAID, SELFPAY ==
[2020-02-25] VITALS (7 sets, daily range): BP systolic 103–152; BP diastolic 50–70; PULSE 48–63; RESP 18; TEMP 36.6; O2SAT 92–96; BMI 29.9
--- NOTE | 2020-02-25 10:06 | XR_ITS ---
PROCEDURE: XR FINGER LT MIN 2V CLINICAL INDICATION: injury, swelling/redness COMPARISON: No exams were available for comparison FINDINGS: There is generalized osteopenia. There is mild focal diffuse tissue swelling of the entire ring finger. More focal soft tissue swelling is seen about the distal phalanx. The proximal middle and distal phalanx appear intact. Mild osteoarthritic changes are seen PIP joint ring finger. There are no foreign bodies. IMPRESSION: Osteopenia, mild diffuse soft tissue swelling, no fracture seen Dictated by: Dr. Ammon Ni MD 02/25/2020 10:[address] Ammon Ni MD in [facility] 02/25/2020 10:39
[2020-02-25 10:14] LABS: Chloride 110 mmol/L (98-107); Potassium 4.4 mmoL/L (3.5-5.1); Sodium 137 mmol/L (136-145)
[2020-02-25 10:16] LABS: Blood Urea Nitrogen 29 mg/dl (7-17); Creatinine Clearance Estimated 27 mL/min (50-200); Estimated Glomerular Filt Rate 24 ml/min (>60); GFR (African American) 29 ML/MIN (>60)
[2020-02-25 10:17] LABS: Alanine Aminotransferase 12 U/L (12-78); Albumin Level 3.7 g/dl (3.5-5.0); Albumin/Globulin Ratio 1.5 (1.1-1.8); Alkaline Phosphatase 169 U/L (38-126); Anion Gap 8.4 mEq/L (5-15); Aspartate Amino Transferase 16 U/L (14-36); Bilirubin,Total 0.6 mg/dl (0.2-1.3); Calcium 8.7 mg/dl (8.4-10.2); Carbon Dioxide 23 mmol/L (22.0-30.0); Globulin 2.4 g/dL (1.3-3.2); Glucose 166 mg/dl (74-100); Total Protein,Serum 6.1 g/dl (6.3-8.2)
[2020-02-25 10:18] LABS: Basophils # 0.1 K/mm3 (0-0.2); Basophils % 0.7 % (0.1-2.0); Eosinophils # 0.2 K/mm3 (0.0-0.4); Hematocrit 31.1 % (37.0-47.0); Lymphocytes # 0.6 K/mm3 (0.7-4.5); Lymphocytes % 8.1 % (10-50); Mean Corpuscular HGB Conc 32.2 g/dL (31.8-35.4); Mean Corpuscular Hemoglobin 30.2 pg (27.0-31.2); Mean Corpuscular Volume 93.8 fl (81-99); Monocytes # 0.4 K/mm3 (0.1-1.0); Neutrophils # 6.1 K/mm3 (1.8-7.8); Neutrophils % 83.2 % (37.0-80.0); Platelet Count 210 K/mm3 (142-424); Red Blood Count 3.31 M/mm3 (4.20-5.40); Red Cell Distribution Width 18.2 % (11.5-17.5); White Blood Count 7.3 K/mm3 (4.8-10.8)
--- NOTE | 2020-02-25 10:19 | PC.NURSE ---
Rad at bedside
--- NOTE | 2020-02-25 11:29 | HMH.EDGENADL ---
ED Disposition Clinical Impression: Contusion, Gastroenteritis Disposition: Home, Self-Care Condition on Discharge: Good Prescriptions: Ondansetron [Zofran 4mg ODT] 4 mg PO TID PRN 4 Days #15 tab.rapdis PRN Reason: Nausea Transmission Status: Pending to [facility] Referrals: Jeremy Pride MD [Primary Care Provider] - - Critical Care Critical Care Time: No Attestation: On 02/25/20, the high probability of a clinically significant, sudden or life threatening deterioration of the following system(s) required my full and direct attention, intervention and personal management. The time I documented below is in addition to time spent performing reported procedures but includes the following listed in this critical care notation. Medical Decision Making - Medical Records Medical records reviewed: Yes: I reviewed the patient's medical records. - Dirk Inquiry Pt receiving controlled substance: No Vital Signs: 02/25/20 09:46 02/25/20 10:22 02/25/20 10:30 Temperature 97.9 F Temperature Source Oral Pulse Rate [Right Radial] 55 L 48 L 51 L Respiratory Rate 18 Blood Pressure [Right Arm] 103/50 L 111/55 L 121/58 L Blood Pressure Mean [Right Arm] 67 73 79 Blood Pressure Source [Right Arm] Automatic Cuff Automatic Cuff Automatic Cuff Blood Pressure Position [Right Arm] Sitting Sitting Sitting 02 Sat by Pulse Oximetry 93 L 93 L 92 L Oxygen Delivery Method Room Air Room Air Room Air 02/25/20 11:02 Temperature Temperature Source Pulse Rate [Right Radial] 52 L Respiratory Rate Blood Pressure [Right Arm] 114/58 L Blood Pressure Mean [Right Arm] 76 Blood Pressure Source [Right Arm] Automatic Cuff Blood Pressure Position [Right Arm] Sitting 02 Sat by Pulse Oximetry 92 L Oxygen Delivery Method Room Air - Lab Data Lab results reviewed: Yes: I reviewed the patient's lab results. Lab Results 02/25/20 10:00: WBC 7.3, RBC 3.31 L, Hgb 10.0 L, Hct 31.1 L, MCV 93.8, MCH 30.2, MCHC 32.2, RDW 18.2 H, Plt Count 210, MPV 8.0, Neut % (Auto) 83.2 H, Lymph % (Auto) 8.1 L, [place] % (Auto) 6.0, Eos % (Auto) 2.0, Baso % (Auto) 0.7, Neut # (Auto) 6.1, Lymph # (Auto) 0.6 L, [place] # (Auto) 0.4, Eos # (Auto) 0.2, Baso # (Auto) 0.1 02/25/20 10:00: Sodium 137, Potassium 4.4, Chloride 110 H, Carbon Dioxide 23, Anion Gap 8.4, BUN 29 H, Creatinine 2.00 H, Estimated Creat Clear 27, Estimated GFR 24 L, Est GFR ( Amer) 29 L, Glucose 166 H, Calcium 8.7, Total Bilirubin 0.6, AST 16, ALT 12, Alkaline Phosphatase 169 H, Total Protein 6.1 L, Albumin 3.7, Globulin 2.4, Albumin/Globulin Ratio 1.5 Result diagrams: 02/25/20 10:00 02/25/20 10:00 Orders (Tests/Meds): ED MEDICATIONS Generic Name Dose Route Start Last Admin Trade Name Freq PRN Reason Stop Dose Admin Sodium Chloride 1,000 mls @ 999 mls/hr 02/25/20 11:00 02/25/20 10:52 Sod Chlor 0.9% 1000ml Bag IV 02/25/20 12:00 999 mls/hr .Q1H1M MARCELINA Administration - Radiology Data #1 Image(s): Finger(s)/Thumb Image Reviewed: Yes I reviewed the patient's radiology image w/the ED provider Preliminary Findings: Normal/NAD General Adult HPI - General Chief complaint: PAIN Stated complaint: nausea, vomiting, rt ring finger swollen/discolore Time Seen by Provider: 02/25/20 11:29 Mode of Arrival: Wheelchair Limitations: No Limitations Description of Symptoms (Recalled from ER Triage Doc. by RN): Pt c/o pain to L ring finger, swollen and red, pt smashed finger 4 days ago. Pt also reports nausea and vomitting x2 this am, states has been dizzy and lightheaded feeling. Pt reports nausea has gotten better. - History of Present Illness HPI narrative: 84-year-old female comes in complaining about her ring finger left hand being swollen after she smashed it 2 days ago. She states the pain is 2 out of 10 and is difficult for her to bend her hand. Otherwise patient does have some nausea with no vomiting and patient denies any other acute issues.
== END 2020-02-25 12:15 | disposition home or self-care (01) ==
PROVIDERS: Emergency Provider Family Medicine; PCP Internal Medicine Adolescent Medicine
DX: K52.9 Noninfective gastroenteritis and colitis, unspecified (principal); S60.041A Contusion of right ring finger without damage to nail, initial encounter; W23.0XXA Caught, crushed, jammed, or pinched between moving objects, initial encounter; Y92.019 Unspecified place in single-family (private) house as the place of occurrence of the external cause; I48.20 Chronic atrial fibrillation, unspecified; F41.8 Other specified anxiety disorders; I10 Essential (primary) hypertension; E78.5 Hyperlipidemia, unspecified; E03.9 Hypothyroidism, unspecified; Z96.641 Presence of right artificial hip joint; Z88.0 Allergy status to penicillin; Z88.2 Allergy status to sulfonamides; Z79.899 Other long term (current) drug therapy
CPT/HCPCS: 73140; 80053; 85025; 93005; 96365; 99284

== ENCOUNTER 2020-02-29 17:05 | Observation (INO) | payer MEDICARE, MEDICAID, SELFPAY ==
--- NOTE | 2020-02-29 17:01 | XR_ITS ---
PROCEDURE: XR HAND LT MIN 3V CLINICAL INDICATION: Trauma COMPARISON: No exams were available for comparison FINDINGS: There is a plate and screws traversing a remote distal radial fracture. There is mild narrowing of the radiocarpal joint, 1st metacarpal-carpal joints, and PIP and DIP joints of the 2nd through 5th digits. There is mild diastasis of the navicular lunate joint presumably from a remote ligamentous injury.. There is no acute fracture or dislocation. IMPRESSION: Mild degenerative changes as above, no acute fracture Dictated by: Cristo Lei 03/01/2020 09:04 Electronically signed by Cristo Lei in [place] 03/01/2020 09:04
--- NOTE | 2020-02-29 17:34 | HMH.HP ---
*Admission Date: 02/29/20 <Jesi Cancino 02/29/20 17:50> *Chief complaint: left 4th finger pain and swelling <Jesi Cancino 02/29/20 17:50> *History of present illness: Rounded in the afternoon after patient was admitted. Discussed patient with nurse practitioner. Agree with exam findings and care plan as documented <Calderon Rosales 02/29/20 18:05> 84 year old female with a history of CAD, CKD, A. Fib, hypothyroidism, depression and anxiety presented to PCP office with pain and swelling of left 4th finger that began 6 days ago. She was seen in the ED at symptom onset with negative xray. Treated for dehydration with IVF's. She reports pain and swelling become significantly worse over the next few days. No fevers, chills, malaise or other constitutional symptoms. No nausea and vomiting at currently. In the office she was found to have large bulging abscess left distal finger at nail bed. Small puncture incision was made to relieve pressure. Ortho was consulted. Patient direct admitted to acute care for ortho consult for surgical debridement/amputation. <Jesi Cancino 02/29/20 17:50> [facility] History I have reviewed the patient's past medical history: Yes <Jesi Cancino 02/29/20 17:50> Medical History: Reports:: Anxiety, Arrhythmia, Atrial Fibrillation, Congestive Heart Failure, Depression, Hyperlipidemia, Hypertension, Renal Disease Denies:: Diabetes Mellitus Type 1, Diabetes Mellitus Type 2 <Jesi Cancino 02/29/20 17:50> *Have you ever received a pneumonia vaccine?: No <BarakJesi 02/29/20 17:50> *Have you received a flu vaccine this season?: No <BarakJesi 02/29/20 17:50> Other Medical History: Reports: Anemia, Arthritis, Hormone Therapy, Hypothyroidism, Radiation Therapy <BarakJesi 02/29/20 17:50> Laterality Cases: Left: Breast Biopsy, Lumpectomy, Right: Total Hip Replacement <CancinoJesi 02/29/20 17:50> Other Surgeries: Yes: Colonoscopy, Other <CancinoJesi 02/29/20 17:50> Amputation: No <CancinoJesi 02/29/20 17:50> Fractures: No <Heriberto Cancinoi 02/29/20 17:50> - *Social History Smoking Status: Former smoker <Heriberto Cancinoi 02/29/20 17:50> Alcohol Intake: never <Heriberto Cancinoi 02/29/20 17:50> Substance Use Type: denies use <Heriberto Cancinoi 02/29/20 17:50> *Occupational Status:: other <Heriberto Cancinoi 02/29/20 17:50> Housing: house <Heriberto Cancinoi 02/29/20 17:50> Household Members: family <Heriberto Cancinoi 02/29/20 17:50> *Travel in the last 8 weeks: None <Heriberto Cancinoi 02/29/20 17:50> - Psychiatric History Expresses thoughts of harming self/others: None <Heriberto Cancinoi 02/29/20 17:50> Suicide Plan Description: No Plan <Heriberto Cancinoi 02/29/20 17:50> Pschychiatric History:: Reports:: Anxiety, Depression <Heriberto Cancinoi 02/29/20 17:50> Family Hx:: Stroke, Anemia, Cancer, Diabetes, Hyperlipidemia, Heart Attack, Hypertension <Heriebrto Cancinoi 02/29/20 17:50> BARN AND PROPERTY MANAGER history: No BARN AND PROPERTY MANAGER history <Heriberto Cancinoi 02/29/20 17:50> Review of Systems - Review of Systems Review of systems:: pertinent systems reviewed and negative unless documented below <Heriberto Cancinoi 02/29/20 17:50> - Integumentary/Breasts Reports nail changes, Reports redness, Reports wounds <Heriberto Cancinoi 02/29/20 17:50> Comments: cellulitis left 4th finger <Heriberto Cancinoi 02/29/20 17:50> Meds Home Medications Medication Instructions Recorded Confirmed Type isosorbide mononitrate 30 mg 60 mg PO QAM 09/15/17 02/25/20 History tablet,extended release 24 hr omeprazole 40 mg capsule,delayed 20 mg PO DAILY 09/15/17 02/25/20 History release apixaban 2.5 mg tablet 2.5 mg PO BID 11/03/18 02/25/20 History hydralazine 25 mg tablet 25 mg PO TID 11/03/18 02/25/20 History labetalol 200 mg tablet 200 mg PO BID 11/03/18 02/25/20 History levothyroxine 25 mcg capsule 25 mcg PO DAILY 11/03/18 02/25/20 History vitamin A-vit C-vit E-zinc-Cu 2 tab PO BID 11/03/18 02/13/20 History Amlodipine Besylate [Amlodipine 5 mg PO DAILY 02/25/20 02/25/20 Hist
--- NOTE | 2020-02-29 17:38 | PC.NURSE ---
pT JUST ARRIVED TO THE FLOOR
--- NOTE | 2020-02-29 18:15 | PC.NURSE ---
Dr Hurd at bedside
[2020-02-29 18:26] VITALS: BP 189/72; PULSE 62; RESP 16; TEMP 36.8; O2SAT 96; BMI 28.8
[2020-02-29 18:29] LABS: Basophils % 0.9 % (0.1-2.0); Eosinophils # 0.2 K/mm3 (0.0-0.4); Eosinophils % 3.4 % (0.1-12.0); Hematocrit 34.2 % (37.0-47.0); Hemoglobin 10.9 g/dL (12.2-16.2); Lymphocytes # 0.8 K/mm3 (0.7-4.5); Lymphocytes % 16.8 % (10-50); Mean Corpuscular HGB Conc 31.9 g/dL (31.8-35.4); Mean Corpuscular Hemoglobin 31.1 pg (27.0-31.2); Mean Corpuscular Volume 97.6 fl (81-99); Mean Platelet Volume 8.2 fl (7.4-10.4); Monocytes # 0.2 K/mm3 (0.1-1.0); Monocytes % 5.3 % (1.7-9.3); Neutrophils # 3.4 K/mm3 (1.8-7.8); Neutrophils % 73.5 % (37.0-80.0); Platelet Count 208 K/mm3 (142-424); Red Cell Distribution Width 18.2 % (11.5-17.5); White Blood Count 4.6 K/mm3 (4.8-10.8)
[2020-02-29 18:35] LABS: Chloride 110 mmol/L (98-107); Potassium 4.9 mmoL/L (3.5-5.1); Sodium 140 mmol/L (136-145)
--- NOTE | 2020-02-29 18:37 | PC.NURSE ---
Addendum entered by Hermila Jamison RN 02/29/20 18:38: Dr Rosales at bedside at 1745 Original Note: Dr Rosales at bedside, wound cleaned with saline and wrapped w/gauze. Pictures taken and documented on chart along w/ consent for pics
[2020-02-29 18:38] LABS: Alanine Aminotransferase 11 U/L (12-78); Albumin Level 4.2 g/dl (3.5-5.0); Albumin/Globulin Ratio 1.7 (1.1-1.8); Alkaline Phosphatase 150 U/L (38-126); Anion Gap 11.9 mEq/L (5-15); Aspartate Amino Transferase 18 U/L (14-36); Bilirubin,Total 0.5 mg/dl (0.2-1.3); Blood Urea Nitrogen 32 mg/dl (7-17); Calcium 9.1 mg/dl (8.4-10.2); Carbon Dioxide 23 mmol/L (22.0-30.0); Creatinine Clearance Estimated 25 mL/min (50-200); Estimated Glomerular Filt Rate 22 ml/min (>60); GFR (African American) 27 ML/MIN (>60); Globulin 2.5 g/dL (1.3-3.2); Glucose 120 mg/dl (74-100); Total Protein,Serum 6.7 g/dl (6.3-8.2)
[2020-02-29 18:44] LABS: C-Reactive Protein 10.4 mg/L (0-4)
[2020-02-29 19:05] LABS: Erythrocyte Sedimentation Rate 39 mm/hr (0-30)
[2020-02-29 19:35] VITALS: BP 170/83; PULSE 61; RESP 18; TEMP 37.1; O2SAT 93
--- NOTE | 2020-02-29 20:30 | HMH.ORTHOCON ---
*Admission Date: 02/29/20 *Reason for consult:: L ring finger infection *History of present illness: 84yo F admitted from her primary care physician's office for an infection in the L ring finger. She began having pain and swelling in this finger on 02/25/20. She is unsure how she injured the finger, but believes she smashed it when she was pulling a bottle of soda off a plastic ring of 6 bottles. Later that day she also caught the tip of the finger in a stream of steam escaping from a pot of boiling water when the lid was lifted. Additionally, she has been recently dog sitting and is a lifelong nail biter; no known contamination to the finger that she can remember. She was seen in the ED at symptoms onset with negative x-ray, no antibiotics. She denies fevers or chills at home. An abscess was identified at her PCP's office and a small pinprick made for decompression; pus was returned. At that point she was admitted for anticipated surgical debridement. She has a history of CAD, CKD, atrial fibrillation, hypothyroidism, anxiety/depression. She takes Eliquis and bruises easily. Review of Systems - Review of Systems Review of systems:: pertinent systems reviewed and negative unless documented below [facility] History I have reviewed the patient's past medical history: Yes Medical History: Reports:: Anxiety, Arrhythmia, Atrial Fibrillation, Congestive Heart Failure, Coronary Artery Disease, Depression, Hyperlipidemia, Hypertension, Renal Disease Denies:: Diabetes Mellitus Type 1, Diabetes Mellitus Type 2 *Have you ever received a pneumonia vaccine?: Yes *Have you received a flu vaccine this season?: Yes Other Medical History: Reports: Anemia, Arthritis, Hormone Therapy, Hypothyroidism, Radiation Therapy Laterality Cases: Left: Breast Biopsy, Lumpectomy, Right: Total Hip Replacement Other Surgeries: Yes: Colonoscopy, Other Amputation: No Fractures: No - *Social History Smoking Status: Former smoker Alcohol Intake: never Substance Use Type: denies use *Occupational Status:: retired Housing: house Household Members: family *Travel in the last 8 weeks: None - Psychiatric History Expresses thoughts of harming self/others: None Suicide Plan Description: No Plan Pschychiatric History:: Reports:: Anxiety, Depression Family Hx:: Stroke, Anemia, Cancer, Diabetes, Hyperlipidemia, Heart Attack, Hypertension DIRECTOR OF CORPORATE REAL ESTATE history: No DIRECTOR OF CORPORATE REAL ESTATE history Meds Home Medications Medication Instructions Recorded Confirmed Type isosorbide mononitrate 30 mg 60 mg PO QAM 09/15/17 02/29/20 History tablet,extended release 24 hr omeprazole 40 mg capsule,delayed 20 mg PO DAILY 09/15/17 02/29/20 History release apixaban 2.5 mg tablet 2.5 mg PO BID 11/03/18 02/29/20 History hydralazine 25 mg tablet 25 mg PO BID 11/03/18 02/29/20 History labetalol 200 mg tablet 200 mg PO BID 11/03/18 02/29/20 History levothyroxine 25 mcg capsule 25 mcg PO DAILY 11/03/18 02/29/20 History vitamin A-vit C-vit E-zinc-Cu 2 tab PO BID 11/03/18 02/29/20 History Amlodipine Besylate [Amlodipine 5 mg PO DAILY 02/25/20 02/29/20 History 5mg tab] Ondansetron [Zofran 4mg ODT] 4 mg PO TID PRN 4 Days #15 02/25/20 02/29/20 Rx tab.rapdis Venlafaxine HCl [Effexor 37.5mg 0.5 tab PO DAILY 02/29/20 02/29/20 History tablet] Allergies Allergy/AdvReac Type Severity Reaction Status Date / Time iodine [IODINE] Allergy Severe S-ANAPHYLAX Verified 02/25/20 10:08 IS Sulfa (Sulfonamide Allergy Severe I-HIVES Verified 02/25/20 10:08 Antibiotics) [SULFA (SULFONAMIDE ANTIBIOTICS)] Penicillins [PENICILLINS] Allergy Intermediate I-RASH Verified 02/25/20 10:08 codeine [CODEINE] Allergy Unknown NA-HALLUCIN Verified 02/25/20 10:08 ATIONS hydrogen peroxide Allergy Unknown Verified 02/25/20 10:08 Exam Vital signs and Labs for Last 24 Hours: Temp Pulse Resp BP Pulse Ox 98.8 F 61 18 170/83 H 93 L 02/29/20 19:35 02/29/20 19:35 02/29/20 19:35 02/29/20 19
--- NOTE | 2020-02-29 20:44 | HMH.PROC ---
[facility] Procedure Note Procedure Note:: Date of Procedure: February 29, 2020 Pre-procedure diagnosis: L ring finger cellulitis, hematoma, paronychia Post-procedure diagnosis: same Procedure: incision and drainage L ring finger with nail removal Performed by: Mary Hurd MD Wildlife Biostation Research Ecologist/s: none Anesthesia: local (digital block) with 8cc anesthetic; 5cc 1% lidocaine, 3cc 0.5% marcaine Estimated Blood Loss: 5cc History of Present Illness: 84yo F admitted from her primary care physician's office for an infection in the L ring finger. She began having pain and swelling in this finger on 02/25/20. She is unsure how she injured the finger, but believes she smashed it when she was pulling a bottle of soda off a plastic ring of 6 bottles. Later that day she also caught the tip of the finger in a stream of steam escaping from a pot of boiling water when the lid was lifted. Additionally, she has been recently dog sitting and is a lifelong nail biter; no known contamination to the finger that she can remember. She was seen in the ED at symptoms onset with negative x-ray, no antibiotics. She denies fevers or chills at home. An abscess was identified at her PCP's office and a small pinprick made for decompression; pus was returned. At that point she was admitted for anticipated surgical debridement. She has a history of CAD, CKD, atrial fibrillation, hypothyroidism, anxiety/depression. She takes Eliquis and bruises easily. The finger required debridement, which I recommended be performed tonight. The patient ate a full meal at 2:30pm and operative debridement would not be possible for 8 hours, so an initial bedside procedure was planned. I explained the intent of the procedure in draining the abscess and performing debridement of hematoma/nonviable tissue. This would be followed by local wound care and formal surgical debridement should this become necessary. I discussed the risks of the procedure, including bleeding, persistent infection, tissue necrosis, osteomyelitis, and possibility of amputation. The patient vocalized understanding of the procedure and provided informed consent for the procedure. Procedure Note: Timeout was performed in the presence of myself, the patient, and the patient's nurse. The base of the L ring finger was cleansed with saline and prepped with chlorhexidine. A digital block was performed with 8cc local anesthetic (3cc 0.5% marcaine, 5cc 1% lidocaine) both dorsally and volarly. Next, the fingertip was prepped with betadine and draped with sterile drapes from a sterile laceration repair kit. The small finger of a sterile latex glove was removed and used to create a finger tourniquet at the base of the ring finger. The abscess at the base of the nail fold was incised with a sterile 11 blade, with a small amount of pus returned, ~1-2cc. This material was swabbed and sent for aerobic/anaerobic cultures. The thin, nonviable skin at the finger tip and base of the nail bed was sharply excised and the nail plate removed intact. A subungal hematoma was present, which was evacuated. The nail bed was intact and healthy appearing. The proximal nail fold was edematous and discolored/purplish, filled with hematoma. No purulent material was expressed from the proximal nail fold. There was no necrotic tissue in need of debridement. Finger tourniquet was removed and the wound irrigated with sterile saline, and the finger tip dressed with xeroform, 4x4s and kerlix, followed by an THONG wrap. The patient tolerated the procedure well, without any immediate complications. Specimens: aerobic/anaerobic cultures Complications: none
--- NOTE | 2020-02-29 21:17 | PC.NURSE ---
SPOKE WITH [facility]. GAVE OKAY TO ADMINISTER VANC 1,500 MG THIS HS.
[2020-03-01 04:00] VITALS: BP 157/74; PULSE 70; RESP 16; TEMP 36.6; O2SAT 90
--- NOTE | 2020-03-01 04:18 | PC.NURSE ---
A&O X4. PT RESTED WELL THIS SHIFT WITH NO COMPLAINTS. DENIES PAIN T/O SHIFT. TOLERATED RA WELL WITH NO C/O SOA. BILATERAL LUNGS NOTED CLEAR T/O UPON AUSCULTATION. DSG TO LEFT RING FINGER NOTED C/D/I. BLE +2 NON-PITTING EDEMA NOTED. INDEPENDENT AMB IN ROOM WITH STAFF STANDBY ASSIST. VSS. REMAINS SAFE. CALL LIGHT IN REACH. WILL CONTINUE TO MONITOR.
[2020-03-01 05:00] VITALS: BMI 28.9
--- NOTE | 2020-03-01 07:03 | HMH.PHAVTE ---
[facility] Pharmacy VTE Monitoring - Patient Demographics Admission date: 02/29/20 Report Date: 03/01/20 Time: 07:03 Allergies/Adverse Reactions: Patient Allergies iodine [IODINE] Allergy (Severe, Verified 02/25/20 10:08) S-ANAPHYLAXIS Sulfa (Sulfonamide Antibiotics) [SULFA (SULFONAMIDE ANTIBIOTICS)] Allergy (Severe, Verified 02/25/20 10:08) I-HIVES Penicillins [PENICILLINS] Allergy (Intermediate, Verified 02/25/20 10:08) I-RASH codeine [CODEINE] Allergy (Unknown, Verified 02/25/20 10:08) NA-HALLUCINATIONS hydrogen peroxide Allergy (Unknown, Verified 02/25/20 10:08) Height: 1.65 m Weight: 78.698 kg Patient Problems: Current Active Problems Cellulitis of left ring finger (Acute) CAD (coronary artery disease) (Chronic) CKD (chronic kidney disease) (Acute) Atrial fibrillation (Chronic) Acquired hypothyroidism (Chronic) Gangrene of finger of left hand (Acute) Subungual hematoma of left ring finger (Acute) Paronychia of left ring finger (Acute) - VTE Risk Labs: VTE Related Lab Results Hgb 10.9 g/dL (12.2-16.2) L 02/29/20 18:20 Hct 34.2 % (37.0-47.0) L 02/29/20 18:20 Plt Count 208 K/mm3 (142-424) 02/29/20 18:20 BUN 32 mg/dl (7-17) H 02/29/20 18:20 Creatinine 2.10 mg/dl (0.52-1.04) H 02/29/20 18:20 Estimated Creat Clear 25 mL/min (50-200) 02/29/20 18:20 Was VTE Risk Assessment Performed: Yes VTE Score: 7 VTE Risk Level: Moderate Risk - Prophylaxis VTE Prophylaxis Ordered?: Yes Types of VTE Prophylaxis: TEDS Knee High Location of Applied Device: Bilateral Lower Extremeties - VTE Diagnosis Confirmed Treatment or plan recommended: Continue Current Treatment
[2020-03-01 08:00] VITALS: BP 154/61; PULSE 68; RESP 18; TEMP 36.9; O2SAT 93
--- NOTE | 2020-03-01 08:03 | HMH.PHACONS ---
- Pharmacy Consult Date: 03/01/20 Time: 08:03 Referring provider: DR. ALLEN Reason for Consult:: VANCOMYCIN DOSING Allergies and ADEs:: Allergies Allergy/AdvReac Type Severity Reaction Status Date / Time iodine [IODINE] Allergy Severe S-ANAPHYLAX Verified 02/25/20 10:08 IS Sulfa (Sulfonamide Allergy Severe I-HIVES Verified 02/25/20 10:08 Antibiotics) [SULFA (SULFONAMIDE ANTIBIOTICS)] Penicillins [PENICILLINS] Allergy Intermediate I-RASH Verified 02/25/20 10:08 codeine [CODEINE] Allergy Unknown NA-HALLUCIN Verified 02/25/20 10:08 ATIONS hydrogen peroxide Allergy Unknown Verified 02/25/20 10:08 Home Medications:: Home Medications Medication Instructions Recorded Confirmed Type omeprazole 40 mg capsule,delayed 20 mg PO DAILY 09/15/17 02/29/20 History release apixaban 2.5 mg tablet 2.5 mg PO BID 11/03/18 02/29/20 History labetalol 200 mg tablet 200 mg PO BID 11/03/18 02/29/20 History vitamin A-vit C-vit E-zinc-Cu 2 tab PO BID 11/03/18 02/29/20 History Amlodipine Besylate [Amlodipine 5 mg PO DAILY 02/25/20 02/29/20 History 5mg tab] Ondansetron [Zofran 4mg ODT] 4 mg PO TID PRN 4 Days #15 02/25/20 02/29/20 Rx tab.rapdis Hydralazine HCl [Apresoline 10mg 10 mg PO DAILY 03/01/20 03/01/20 History tablet] Isosorbide Mononitrate [Imdur 60mg 60 mg PO DAILY 03/01/20 03/01/20 History ER tablet] Levothyroxine Sodium 25 mcg PO DAILY 03/01/20 03/01/20 History [Levothyroxine 25mcg (0.025mg) Tab] Venlafaxine HCl 37.5 mg PO DAILY 03/01/20 03/01/20 History Height: 1.65 m Weight: 78.698 kg Laboratory Results:: Laboratory Results - last 24 hr 02/29/20 18:20: WBC 4.6 L, RBC 3.50 L, Hgb 10.9 L, Hct 34.2 L, MCV 97.6, MCH 31.1, MCHC 31.9, RDW 18.2 H, Plt Count 208, MPV 8.2, Neut % (Auto) 73.5, Lymph % (Auto) 16.8, [place] % (Auto) 5.3, Eos % (Auto) 3.4, Baso % (Auto) 0.9, Neut # (Auto) 3.4, Lymph # (Auto) 0.8, [place] # (Auto) 0.2, Eos # (Auto) 0.2, Baso # (Auto) 0.0, ESR 39 H 02/29/20 18:20: Sodium 140, Potassium 4.9, Chloride 110 H, Carbon Dioxide 23, Anion Gap 11.9, BUN 32 H, Creatinine 2.10 H, Estimated Creat Clear 25, Estimated GFR 22 L, Est GFR ( Amer) 27 L, Glucose 120 H, Calcium 9.1, Total Bilirubin 0.5, AST 18, ALT 11 L, Alkaline Phosphatase 150 H, C-Reactive Protein 10.4 H, Total Protein 6.7, Albumin 4.2, Globulin 2.5, Albumin/Globulin Ratio 1.7 Medical History: Reports:: Anxiety, Arrhythmia, Atrial Fibrillation, Congestive Heart Failure, Coronary Artery Disease, Depression, Hyperlipidemia, Hypertension, Renal Disease Denies:: Diabetes Mellitus Type 1, Diabetes Mellitus Type 2 Assessment and Plan (1) Cellulitis of left ring finger Current visit: Yes Status: Acute Category: Medical Code(s): L03.012 - Cellulitis of left finger (2) CAD (coronary artery disease) Current visit: Yes Status: Chronic Qualifiers: Coronary Disease-Associated Artery/Lesion type: [place] artery [place] vs. transplanted heart: [place] heart Associated angina: without angina Qualified Code(s): I25.10 - Atherosclerotic heart disease of [place] coronary artery without angina pectoris Category: Medical Code(s): I25.10 - Atherosclerotic heart disease of [place] coronary artery without angina pectoris (3) CKD (chronic kidney disease) Current visit: Yes Status: Acute Qualifiers: Chronic kidney disease stage: stage 3 (moderate) Qualified Code(s): N18.3 - Chronic kidney disease, stage 3 (moderate) Category: Medical Code(s): N18.9 - Chronic kidney disease, unspecified (4) Atrial fibrillation Current visit: Yes Status: Chronic Qualifiers: Atrial fibrillation type: paroxysmal Qualified Code(s): I48.0 - Paroxysmal atrial fibrillation Category: Medical Code(s): I48.91 - Unspecified atrial fibrillation (5) Acquired hypothyroidism Current visit: Yes Status: Chronic Category: Medical Code(s): E03.9 - Hypothyroidism, unspecified (6) [place]
--- NOTE | 2020-03-01 09:07 | P.PN_ITS ---
Internal Medicine - PN: Subj *Date: 03/01/20 *Time: 09:07 Exam Vital signs and Labs for Last 24 Hours: Temp Pulse Resp BP Pulse Ox 98.4 F 68 18 154/61 H 93 L 03/01/20 08:00 03/01/20 08:00 03/01/20 08:00 03/01/20 08:00 03/01/20 08:00 Laboratory Results - last 24 hr 02/29/20 18:20: WBC 4.6 L, RBC 3.50 L, Hgb 10.9 L, Hct 34.2 L, MCV 97.6, MCH 31.1, MCHC 31.9, RDW 18.2 H, Plt Count 208, MPV 8.2, Neut % (Auto) 73.5, Lymph % (Auto) 16.8, [place] % (Auto) 5.3, Eos % (Auto) 3.4, Baso % (Auto) 0.9, Neut # (Auto) 3.4, Lymph # (Auto) 0.8, [place] # (Auto) 0.2, Eos # (Auto) 0.2, Baso # (Auto) 0.0, ESR 39 H 02/29/20 18:20: Sodium 140, Potassium 4.9, Chloride 110 H, Carbon Dioxide 23, Anion Gap 11.9, BUN 32 H, Creatinine 2.10 H, Estimated Creat Clear 25, Estimated GFR 22 L, Est GFR ( Amer) 27 L, Glucose 120 H, Calcium 9.1, Total Bilirubin 0.5, AST 18, ALT 11 L, Alkaline Phosphatase 150 H, C-Reactive Protein 10.4 H, Total Protein 6.7, Albumin 4.2, Globulin 2.5, Albumin/Globulin Ratio 1.7 I & O for Last 24 hours: Intake & Output 02/27/20 02/28/20 02/29/20 03/01/20 23:59 23:59 23:59 23:59 Intake Total 240 / 240 979 / 979 Output Total 200 / 200 Balance 40 / 40 979 / 979 Weight 78.642 kg 78.698 kg Microbiology Reports for the Last 24 Hours: Microbiology 02/29/20 18:50 Finger,Left Ring - Abscess Gram Stain - Final 02/29/20 18:50 Finger,Left Ring - Abscess Abscess Culture - Preliminary Assessment and Plan (1) Cellulitis of left ring finger Current visit: Yes Status: Acute Category: Medical Code(s): L03.012 - Cellulitis of left finger (2) CAD (coronary artery disease) Current visit: Yes Status: Chronic Qualifiers: Coronary Disease-Associated Artery/Lesion type: [place] artery [place] vs. transplanted heart: [place] heart Associated angina: without angina Qualified Code(s): I25.10 - Atherosclerotic heart disease of [place] coronary artery without angina pectoris Category: Medical Code(s): I25.10 - Atherosclerotic heart disease of [place] coronary artery without angina pectoris (3) CKD (chronic kidney disease) Current visit: Yes Status: Acute Qualifiers: Chronic kidney disease stage: stage 3 (moderate) Qualified Code(s): N18.3 - Chronic kidney disease, stage 3 (moderate) Category: Medical Code(s): N18.9 - Chronic kidney disease, unspecified (4) Atrial fibrillation Current visit: Yes Status: Chronic Qualifiers: Atrial fibrillation type: paroxysmal Qualified Code(s): I48.0 - Paroxysmal atrial fibrillation Category: Medical Code(s): I48.91 - Unspecified atrial fibrillation (5) Acquired hypothyroidism Current visit: Yes Status: Chronic Category: Medical Code(s): E03.9 - Hypothyroidism, unspecified (6) Subungual hematoma of left ring finger Current visit: Yes Status: Acute Category: Medical Code(s): S60.142A - Contusion of left ring finger with damage to nail, initial encounter (7) Paronychia of left ring finger Current visit: Yes Status: Acute Category: Medical Code(s): L03.012 - Cellulitis of left finger
--- NOTE | 2020-03-01 10:00 | HMH.PHAINT ---
MEDICATION RECONCILIATION COMPLETED ON PATIENT USING EXTERNAL FILL HISTORY FROM PHARMACY AND LIST FROM MD OFFICE. -RAQUEL FINLEYD
--- NOTE | 2020-03-01 10:03 | HMH.PTWOUND ---
Rehab Inpt Wound Evaluation Rehab IP Wound Evaluation Start: 03/01/20 09:59 Freq: Status: Active Protocol: Document 03/01/20 09:59 CHET (Rec: 03/01/20 10:03 CHET [id number]) Rehab PT Wound Assessment Subjective Subjective 84 yowf adm to [facility] with L 4th finger wound with possible cellulitis. Now S/P I&D of wound. Wound Left Distal Finger - 4th Digit Wound Type hematoma S/P I&D Is This a Chronic Wound No Wound Length (cm) 2.1 Wound Width (cm) 2.3 Wound Bed Appearance Beefy Red Percentage Granulated (%) 100 Wound Margins Description Macerated Surrounding Tissue Appearance Blanched/Dull Wound Drainage Description Sanguineous Drainage Amount Small Wound Topical Solution/Irrigant Saline Irrigant Primary Dressing Medicated Gauze Pad Comment xeroform petroleum gauze Wound Debridement Amount of Tissue None Removed Dressing Change Patient Tolerance Tolerated Well Plan/Recommendation Comment Nsg to dress wound and pt will D/C to home with wound car at home performed by family. Eval Complexity Eval Charge Codes 35932 - Low Complexity PHYSICIAN CERTIFICATION: I certify the specified therapy services for Aileen Bassett are required, authorized, and reviewed every 30 days.
--- NOTE | 2020-03-01 10:33 | P.PN_ITS ---
Subjective Date: 03/01/20 Time: 09:00 Principal diagnosis: L ring finger infection Interval history: The patient is doing well this morning. Tolerated bedside I&D of the finger last night, no acute events reported overnight. She remains afebrile, pain well- controlled with medication. Moderate gram positive cocci on gram stain, culture pending. Started on IV vanc, cefepime and metronidazole last night. PN: Obj Ex Vital signs: Temp Pulse Resp BP Pulse Ox 98.4 F 68 18 154/61 H 93 L 03/01/20 08:00 03/01/20 08:00 03/01/20 08:00 03/01/20 08:00 03/01/20 08:00 - Constitutional no acute distress - Routine HEENT Exam Head: Present: normocephalic Eye: Present: EOMI ENT: Present: mucous membranes moist - Routine Respiratory Exam Absent: respiratory distress, wheezes - Routine Cardiovascular Exam Present: RRR - Routine Extremities Exam Comments: L ring finger nail bed intact, no wounds on nail bed, no tissue necrosis, no purulence proximal nail fold edematous, purple in coloration but improving no necrotic tissue or purulent material noted L ring finger sensation intact in radial/ulnar digital nerves L ring finger AIN/PIN/ulnar nerves motor intact L hand SILT m/r/u distributions L hand palpable radial pulse L wrist - Routine Neurological Exam Present: alert, oriented X3, moving all extremities, normal tone, vision grossly intact, hearing grossly intact, normal speech. Absent: sensory deficit, motor deficit, altered mental status - Routine Psychiatric Exam Present: normal affect Progress Note: A&P (1) Cellulitis of left ring finger Status: Acute Current Visit: Yes (2) CAD (coronary artery disease) Status: Chronic Current Visit: Yes (3) CKD (chronic kidney disease) Status: Acute Current Visit: Yes (4) Atrial fibrillation Status: Chronic Current Visit: Yes (5) Acquired hypothyroidism Status: Chronic Current Visit: Yes (6) Subungual hematoma of left ring finger Status: Acute Current Visit: Yes (7) Paronychia of left ring finger Status: Acute Current Visit: Yes Assessment and Plan for All Diagnoses:: 84yo F with L ring finger hematoma, cellulitis and abscess/paronychia; PPD 1 s/p bedside I&D -- dilute hydrogen peroxide soaks; soak for 5 minutes, once per day for 1 week. -- dressings applied: xeroform, 4x4s, shayla, THONG -- elevate L hand -- reinforce dressing if any drainage through dressings -- continue IV antibiotics -- ok to d/c home from ortho perspective, with daily peroxide soaks and local wound care. Transition to oral antibiotics per Dr. Rosales. Follow-up with me in clinic 03/04/20.
--- NOTE | 2020-03-01 11:10 | HMH.DCSUM ---
General - General Admission date:: 02/29/20 Discharge date: 03/01/20 HPI HPI: Rounded in the afternoon after patient was admitted. Discussed patient with nurse practitioner. Agree with exam findings and care plan as documented Hospital Course Hospital Course: Wound was debrided at bedside on night of admission. Patient was started on broad-spectrum antibiotics. No concern for osteomyelitis. Reassessment of wound the following day showed viable tissue and no progression of infection. At this time patient has remained hemodynamically stable. Nailbed appears healthy, no concern for deeper infection. Ortho consulted during admission, appreciate their recommendations. See their notes for full recommendations on wound care. Will transition oral antibiotics based on patient's allergies and likely pathogens in this infection. Have concern that oral pathogens may have infected her finger given her excessive nailbiting habit. Will send home on a course of clindamycin and Keflex. Plan to follow-up with orthopedics as scheduled and in our office within the coming week. Medically stable for discharge home. Denies significant pain, nausea, vomiting, shortness of breath, chest pain. No fevers or chills. Objective Vital signs: Temp Pulse Resp BP Pulse Ox 98.4 F 68 18 154/61 H 93 L 03/01/20 08:00 03/01/20 08:00 03/01/20 08:00 03/01/20 08:00 03/01/20 08:00 Narrative: Alert and oriented x3 Rate and rhythm regular. No murmur. No LE edema Lung sounds clear and equal Abdomen soft and nontender Left 4th finger status post debridement with minimal erythema. [place] healthy nail bed. Slight peeling of upper epidermis. Interval improvement with no discharge, foul smell, appearance of necrotic tissue. Clean bandage with minimal bleeding Results Labs on day of discharge: Labs from last 24 hours 02/29/20 02/29/20 18:20 18:20 WBC 4.6 L RBC 3.50 L Hgb 10.9 L Hct 34.2 L MCV 97.6 MCH 31.1 MCHC 31.9 RDW 18.2 H Plt Count 208 MPV 8.2 Neut % (Auto) 73.5 Lymph % (Auto) 16.8 [place] % (Auto) 5.3 Eos % (Auto) 3.4 Baso % (Auto) 0.9 Neut # (Auto) 3.4 Lymph # (Auto) 0.8 [place] # (Auto) 0.2 Eos # (Auto) 0.2 Baso # (Auto) 0.0 ESR 39 H Sodium 140 Potassium 4.9 Chloride 110 H Carbon Dioxide 23 Anion Gap 11.9 BUN 32 H Creatinine 2.10 H Estimated Creat Clear 25 Estimated GFR 22 L Est GFR ( Amer) 27 L Glucose 120 H Calcium 9.1 Total Bilirubin 0.5 AST 18 ALT 11 L Alkaline Phosphatase 150 H C-Reactive Protein 10.4 H Total Protein 6.7 Albumin 4.2 Globulin 2.5 Albumin/Globulin Ratio 1.7 Preliminary micro results at discharge 02/29/20 18:50 Abscess Culture - Preliminary Finger,Left Ring - Abscess DS: Diagnosis - Discharge Diagnosis (1) Cellulitis of left ring finger Status: Acute (2) CAD (coronary artery disease) Status: Chronic (3) CKD (chronic kidney disease) Status: Acute (4) Atrial fibrillation Status: Chronic (5) Acquired hypothyroidism Status: Chronic (6) Subungual hematoma of left ring finger Status: Acute (7) Paronychia of left ring finger Status: Acute Discharge Plan - Patient Discharge Instructions ACTIVITY: Continue current activity DIET: continue same diet Additional Instructions: left ring finger wound care: -- may remove dressings to shower, ok to get finger wet briefly but do not scrub -- after shower, or once daily if not bathing, soak finger in dilute hydrogen peroxide solution. Mix sterile water or saline with hydrogen peroxide in a 2:1 ratio, soak finger for 5 minutes. Do this once daily for 7 days. -- after soaking finger, redress with clean dressings: xeroform, 4x4s, shayla wrap, THONG bandage. If xeroform is sticking to nail bed significantly, may apply a thin layer of antibiotic ointment to the nail bed before xeroform application. -- c
[2020-03-01 13:08] VITALS: BMI 29.0
--- NOTE | 2020-03-01 15:12 | HMH.PHAINT ---
DISCHARGE COUNSELING COMPLETED.
== END 2020-03-01 14:50 | disposition home or self-care (01) ==
PROVIDERS: Nurse Practitioner Family; Admitting Provider Internal Medicine Adolescent Medicine; PCP Internal Medicine Adolescent Medicine; Visit Provider Internal Medicine Adolescent Medicine
DX: L03.012 Cellulitis of left finger (principal); B95.61 Methicillin susceptible Staphylococcus aureus infection as the cause of diseases classified elsewhere; S60.142A Contusion of left ring finger with damage to nail, initial encounter; I25.10 Atherosclerotic heart disease of native coronary artery without angina pectoris; N18.9 Chronic kidney disease, unspecified; I48.20 Chronic atrial fibrillation, unspecified; E03.9 Hypothyroidism, unspecified; Z88.0 Allergy status to penicillin; Z88.2 Allergy status to sulfonamides; Z88.5 Allergy status to narcotic agent; Z79.01 Long term (current) use of anticoagulants; Z79.899 Other long term (current) drug therapy; L60.8 Other nail disorders; M79.645 Pain in left finger(s)
CPT/HCPCS: G0379; 11720; 36415; 73130; 80053; 85025; 85651; 86140; 87040; 87070; 87075; 87077; 87186; 87205; G0378; J0692; J3370

== ENCOUNTER → 2020-05-02 10:42 | Outpatient (CLI) | payer MEDICARE, MEDICAID, SELFPAY ==
[2020-05-02 11:09] LABS: Basophils # 0.1 K/mm3 (0-0.2); Eosinophils # 0.2 K/mm3 (0.0-0.4); Hematocrit 32.5 % (37.0-47.0); Hemoglobin 10.3 g/dL (12.2-16.2); Lymphocytes # 0.7 K/mm3 (0.7-4.5); Lymphocytes % 13.4 % (10-50); Mean Corpuscular HGB Conc 31.7 g/dL (31.8-35.4); Mean Corpuscular Hemoglobin 32.3 pg (27.0-31.2); Mean Platelet Volume 8.7 fl (7.4-10.4); Monocytes # 0.4 K/mm3 (0.1-1.0); Monocytes % 7.1 % (1.7-9.3); Neutrophils # 3.7 K/mm3 (1.8-7.8); Neutrophils % 74.5 % (37.0-80.0); Platelet Count 197 K/mm3 (142-424); Red Blood Count 3.19 M/mm3 (4.20-5.40); Red Cell Distribution Width 14.4 % (11.5-17.5)
[2020-05-02 11:49] LABS: Iron 93 ug/dL (37-170)
[2020-05-02 11:59] LABS: Total Iron Binding Capacity 313 ug/dL (265-497)
[2020-05-02 12:26] LABS: Ferritin 138 ng/ml (11.1-264)
== END ==
PROVIDERS: Visit Provider Internal Medicine Medical Oncology
DX: D50.9 Iron deficiency anemia, unspecified (principal)
CPT/HCPCS: 36415; 82728; 83540; 83550; 85025

== ENCOUNTER 2020-11-26 15:21 | Emergency (ER) | payer MEDICARE, MEDICAID, SELFPAY ==
[2020-11-26] VITALS (9 sets, daily range): BP systolic 84–165; BP diastolic 49–76; PULSE 54–70; RESP 16–20; TEMP 36.4; O2SAT 84–97; BMI 31.1
--- NOTE | 2020-11-26 16:12 | CT_ITS ---
PROCEDURE: CT ABDOMEN PELVIS WO CON CLINICAL INDICATION: n/v/d, abd pain COMPARISON: CT ABDPELW/O CT ABD PELVIS W/O CONTRAST from 08/10/2017 TECHNIQUE: Axial images obtained with sagittal and coronal reformats. All CT scans at the facility use one or more dose reduction, viz: automated exposure control, ma/kV adjustment per patient size (including targeted exams where dose is matched to indication, i.e. head), or iterative reconstruction technique. FINDINGS: There are mild atelectatic changes in the lung bases. There is cardiomegaly with coronary artery calcifications. Nonspecific mm nodular opacity is present in the left lung base. There is a medium-sized hiatal hernia. Prior cholecystectomy. The liver and spleen have an unremarkable unenhanced appearance. There is an 8 cm by 6.5 cm left renal cyst. 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 There is a 1.4 cm right renal cyst and an exophytic 2.9 cm exophytic right renal cyst anteriorly. No renal or ureteral calculi. No hydronephrosis. No adrenal nodule. Unremarkable appearing pancreas. There is a small umbilical hernia containing fat. There is some nonspecific haziness of the fat within the hernia and just deep to the hernia orifice. No evidence of appendicitis. There is colonic diverticulosis but no evidence of diverticulitis. No intestinal obstruction or free air. Artifact is present from right hip prosthesis. No pelvic mass or abnormal fluid collection. There is mild lumbar scoliosis convex left. IMPRESSION: 1. No acute finding. 2. Colonic diverticulosis. No evidence of diverticulitis 3. Nonemergent nonacute findings as described above. Dictated by: Constantin Peterson MD 11/26/2020 17:15 Constantin Peterson MD in [place] 11/26/2020 17:15
--- NOTE | 2020-11-26 16:12 | XR_ITS ---
PROCEDURE: XR CHEST PORTABLE CLINICAL HISTORY: low SaO2 Weakness, nausea, vomiting, diarrhea COMPARISON: CR CXR2V XR chest 2V from 02/09/2018 CR CXR1VP XR chest portable from 06/04/2018 CR XR CHEST PORTABLE from 12/28/2019 FINDINGS: There is cardiomegaly without failure. A 10 mm opacity is noted overlying the left midlung nonspecific. There has been prior left axillary surgery with surgical clips. Small hiatal hernia suspected. IMPRESSION: Cardiomegaly. No acute finding. 10 mm opacity left midlung in the perihilar possibly due to developing nodule. Upright PA and lateral chest may provide further evaluation Dictated by: Constantin Peterson MD 11/26/2020 16:59 Constantin Peterson MD in [place] 11/26/2020 16:59
[2020-11-26 16:14] LABS: Chloride 106 mmol/L (98-107); Potassium 5.1 mmoL/L (3.5-5.1); Sodium 139 mmol/L (136-145)
[2020-11-26 16:17] LABS: Alanine Aminotransferase 11 U/L (12-78); Albumin Level 3.6 g/dl (3.5-5.0); Albumin/Globulin Ratio 1.5 (1.1-1.8); Alkaline Phosphatase 158 U/L (38-126); Amylase 64 U/L (30-110); Anion Gap 12.1 mEq/L (5-15); Aspartate Amino Transferase 19 U/L (14-36); Bilirubin,Total 0.5 mg/dl (0.2-1.3); Blood Urea Nitrogen 20 mg/dl (7-17); Carbon Dioxide 26 mmol/L (22.0-30.0); Creatinine Clearance Estimated 26 mL/min (50-200); Estimated Glomerular Filt Rate 22 ml/min (>60); GFR (African American) 27 ML/MIN (>60); Globulin 2.4 g/dL (1.3-3.2); Glucose 158 mg/dl (74-100); Lipase 149 U/L (23-300)
[2020-11-26 16:19] LABS: Basophils # 0.1 K/mm3 (0-0.2); Basophils % 2.7 % (0.1-2.0); Eosinophils # 0.1 K/mm3 (0.0-0.4); Eosinophils % 3.2 % (0.1-12.0); Hematocrit 30.7 % (37.0-47.0); Hemoglobin 9.6 g/dL (12.2-16.2); Lymphocytes # 0.4 K/mm3 (0.7-4.5); Lymphocytes % 11.9 % (10-50); Mean Corpuscular HGB Conc 31.4 g/dL (31.8-35.4); Mean Corpuscular Hemoglobin 31.2 pg (27.0-31.2); Mean Corpuscular Volume 99.6 fl (81-99); Mean Platelet Volume 7.4 fl (7.4-10.4); Monocytes # 0.3 K/mm3 (0.1-1.0); Monocytes % 8.8 % (1.7-9.3); Neutrophils # 2.6 K/mm3 (1.8-7.8); Neutrophils % 73.3 % (37.0-80.0); Platelet Count 265 K/mm3 (142-424); Red Blood Count 3.09 M/mm3 (4.20-5.40); White Blood Count 3.6 K/mm3 (4.8-10.8)
--- NOTE | 2020-11-26 18:06 | HMH.EDGENADL ---
ED Disposition Clinical Impression: Right upper quadrant pain, Hypoxia, Hypotensive episode UTI (urinary tract infection) Qualifiers: Urinary tract infection type: site unspecified Hematuria presence: without hematuria Qualified Code(s): N39.0 - Urinary tract infection, site not specified COPD (chronic obstructive pulmonary disease) Qualifiers: COPD type: unspecified COPD Qualified Code(s): J44.9 - Chronic obstructive pulmonary disease, unspecified Disposition: Home, Self-Care Condition on Discharge: Fair Instructions: DI for Urinary Tract Infection (UTI), DI for Abdominal Pain-Adult Additional Instructions: Take antibiotic as prescribed. Follow-up with your primary care provider for urinary tract infection, abdominal pain, and low oxygen saturation, call tomorrow. Return to the emergency department if short of breath, lightheaded or dizzy, fever, severe pain, repetitive vomiting. Additional instructions for ABDOMINAL PAIN: See your physician as soon as possible for further evaluation. Return immediately if worsening abdominal pain, vomiting, shortness of breath, fever, vomiting of blood or abdominal distention. Prescriptions: Ciprofloxacin HCl [Cipro 500mg Tab] 500 mg PO BID #20 tab Transmission Status: Pending to [facility] Referrals: Calderon Rosales MD [Primary Care Provider] - - Critical Care Critical Care Time: No Attestation: On 11/26/20, the high probability of a clinically significant, sudden or life threatening deterioration of the following system(s) required my full and direct attention, intervention and personal management. The time I documented below is in addition to time spent performing reported procedures but includes the following listed in this critical care notation. Medical Decision Making - Dirk Inquiry Pt receiving controlled substance: No Vital Signs: 11/26/20 15:53 11/26/20 17:01 11/26/20 17:30 Temperature 97.6 F Temperature Source Oral Pulse Rate 67 Pulse Rate [Right Radial] 54 L Respiratory Rate 20 Blood Pressure 147/76 H 153/74 H Blood Pressure [Right Arm] 84/49 L Blood Pressure Mean 88 100 Blood Pressure Mean [Right Arm] 60 Blood Pressure Source [Right Arm] Automatic Cuff Blood Pressure Position [Right Arm] Sitting 02 Sat by Pulse Oximetry 84 L 94 L Oxygen Delivery Method Room Air 11/26/20 18:00 11/26/20 18:16 11/26/20 19:00 Temperature Temperature Source Pulse Rate 69 64 68 Pulse Rate [Right Radial] Respiratory Rate Blood Pressure 160/76 H 149/70 H 161/70 H Blood Pressure [Right Arm] Blood Pressure Mean 98 96 100 Blood Pressure Mean [Right Arm] Blood Pressure Source [Right Arm] Blood Pressure Position [Right Arm] 02 Sat by Pulse Oximetry 93 L 94 L 95 Oxygen Delivery Method 11/26/20 19:30 11/26/20 20:00 Temperature Temperature Source Pulse Rate 70 Pulse Rate [Right Radial] Respiratory Rate Blood Pressure 160/73 H 165/74 H Blood Pressure [Right Arm] Blood Pressure Mean 102 104 Blood Pressure Mean [Right Arm] Blood Pressure Source [Right Arm] Blood Pressure Position [Right Arm] 02 Sat by Pulse Oximetry 95 Oxygen Delivery Method - Lab Data Lab Results 11/26/20 15:44: WBC 3.6 L, RBC 3.09 L, Hgb 9.6 L, Hct 30.7 L, MCV 99.6 H, MCH 31.2, MCHC 31.4 L, RDW 14.0, Plt Count 265, MPV 7.4, Neut % (Auto) 73.3, Lymph % (Auto) 11.9, [place] % (Auto) 8.8, Eos % (Auto) 3.2, Baso % (Auto) 2.7 H, Neut # (Auto) 2.6, Lymph # (Auto) 0.4 L, [place] # (Auto) 0.3, Eos # (Auto) 0.1, Baso # (Auto) 0.1 11/26/20 15:44: Sodium 139, Potassium 5.1, Chloride 106, Carbon Dioxide 26, Anion Gap 12.1, BUN 20 H, Creatinine 2.10 H, Estimated Creat Clear 26, Estimated GFR 22 L, Est GFR ( Amer) 27 L, Glucose 158 H, Calcium 9.0, Total Bilirubin 0.5, AST 19, ALT 11 L, Alkaline Phosphatase 158 H, Total Protein 6.0 L, Albumin 3.6, Globulin 2.4, Albumin/Globulin Ratio 1.5, Amylase 64 11/26/20 15:44: Lipa
--- NOTE | 2020-11-26 18:32 | ECG_ITS ---
APPROVED REPORT Exam: Resting ECG HR:61 bpm ECG Measurements Heart Rate 61 AXES SC 230 P 95 QRSd 90 QRS -16 QT 448 T 0 QTc 450 Conclusion Sinus rhythm with 1st degree AV block Moderate voltage criteria for LVH, may be normal variant Late r wave progression Abnormal ECG Electronically signed by : Jeremy Pride, 11/27/2020 17:47:30
[2020-11-26 18:34] LABS: Microscopic, Urine URINE MICROSCOPIC (MICROSCOPIC)
[2020-11-26 18:36] LABS: Appearance,Urine CLEAR (Clear); Bilirubin,Urine Negative (Negative); Blood, Urine Negative (Negative); Color,Urine YELLOW (Yellow); Glucose,Urine (UA) Negative (Negative); Ketones,Urine Negative (Negative); Leukocyte Esterase,Urine TRACE (Negative); Nitrate,Urine Negative (Negative); Protein,Urine Negative (Negative); Specific Gravity, Urine 1.015 (1.005-1.030); Urobilinogen,Urine 0.2 EU/dl (0.2)
[2020-11-26 18:42] LABS: Bacteria,Urine 4+ /lpf; Squamous Epithelial Cell,Urine Occasional #/hpf (0-5)
[2020-11-26 18:51] LABS: Troponin I 0.04 ng/ml (0.00-0.034)
== END 2020-11-26 21:10 | disposition home or self-care (01) ==
PROVIDERS: Emergency Provider Emergency Medicine; PCP Internal Medicine Adolescent Medicine
DX: N30.00 Acute cystitis without hematuria (principal); B96.1 Klebsiella pneumoniae [K. pneumoniae] as the cause of diseases classified elsewhere; I95.9 Hypotension, unspecified; R09.02 Hypoxemia; J44.9 Chronic obstructive pulmonary disease, unspecified; I10 Essential (primary) hypertension; E78.5 Hyperlipidemia, unspecified; I48.91 Unspecified atrial fibrillation; I25.10 Atherosclerotic heart disease of native coronary artery without angina pectoris; F41.8 Other specified anxiety disorders; Z88.0 Allergy status to penicillin; Z88.2 Allergy status to sulfonamides; Z79.899 Other long term (current) drug therapy
CPT/HCPCS: 71045; 74176; 80053; 81001; 82150; 83690; 84484; 85025; 87086; 87088; 87186; 93005; 96366; 96375; 99283; J2405; U0003

== ENCOUNTER 2020-11-30 23:32 | Observation (INO) | payer MEDICARE, MEDICAID, SELFPAY ==
[2020-11-30 23:31] VITALS: BP 124/68; PULSE 85; RESP 21; TEMP 38.1; O2SAT 90; BMI 32.4
[2020-11-30 23:32] VITALS: BMI 28.1
--- NOTE | 2020-11-30 23:34 | ECG_ITS ---
APPROVED REPORT Exam: Resting ECG HR:77 bpm ECG Measurements Heart Rate 77 AXES PA 200 P 93 QRSd 96 QRS -21 QT 376 T 53 QTc 425 Conclusion Normal sinus rhythm Voltage criteria for left ventricular hypertrophy Abnormal ECG Electronically signed by : Jeremy Pride, 12/01/2020 19:39:47
--- NOTE | 2020-11-30 23:34 | XR_ITS ---
PROCEDURE: XR CHEST PORTABLE CLINICAL HISTORY: FEVER,AMS COMPARISON: CR CXR1VP XR chest portable from 06/04/2018 CR XR CHEST PORTABLE from 12/28/2019 CR XR CHEST PORTABLE from 11/26/2020 FINDINGS: Moderate generalized cardiomegaly and there is mild vascular congestion with prominence of the upper lobe vessels. The nodular opacity seen on the most recent chest films not definitely appreciated. Again noted is a hiatal hernia seen through the cardiac shadow. There is no definite pneumonic infiltrate seen. IMPRESSION: [place] with findings suggesting mild chronic failure and suggest clinical correlation Dictated by: Dr. Ammon Ni MD 12/01/2020 09:43 Dr. Ammon Ni MD in [place] 12/01/2020 09:43
[2020-11-30 23:47] LABS: ABG Base Excess -3.3 mmol/L (-2.4-2.3); ABG HCO3 22.3 mmhg (22.0-26.0); ABG Oxygen Saturation 90 % (90-100); ABG PCO2 40.8 mmhg (35.0-45.0); ABG PH 7.36 mmol/L (7.35-7.45); ABG PO2 55.5 mmhg (80-100); ABG TCO2 23.5 mmhg (23-27); Allen's Test Y; Oxygen 3 %; Source R/R
[2020-11-30 23:50] LABS: Adenovirus,PCR Not Detected (NotDetected); Bordetella Pertussis Not Detected (NotDetected); Chlamydophila Pneumoniae, PCR Not Detected (NotDetected); Coronavirus 19, PCR Not Detected (NotDetected); Coronavirus 229E Not Detected (NotDetected); Coronavirus NL63 Not Detected (NotDetected); Coronavirus OC43 Not Detected (NotDetected); Coronovirus HKU1,PCR Not Detected (NotDetected); Human Metapneumovirus Not Detected (NotDetected); Influenza A, PCR Not Detected (NotDetected); Influenza AH1, 2009 Not Detected (NotDetected); Influenza AH1, PCR Not Detected (NotDetected); Influenza AH3,PCR Not Detected (NotDetected); Influenza B, PCR Not Detected (NotDetected); Mycoplasma Pneumoniae, PCR Not Detected (NotDetected); Parainfluenza 1, PCR Not Detected (NotDetected); Parainfluenza 2, PCR Not Detected (NotDetected); Parainfluenza 3, PCR Not Detected (NotDetected); Parainfluenza 4, PCR Not Detected (NotDetected); Respiratory Syncytial Virus Not Detected (NotDetected); Rhinovirus/Enterovirus Not Detected (NotDetected)
[2020-11-30 23:51] LABS: Basophils % 0.9 % (0.1-2.0); Eosinophils # 0.2 K/mm3 (0.0-0.4); Eosinophils % 3.7 % (0.1-12.0); Hemoglobin 8.9 g/dL (12.2-16.2); Lymphocytes # 0.5 K/mm3 (0.7-4.5); Lymphocytes % 10.3 % (10-50); Mean Corpuscular HGB Conc 31.6 g/dL (31.8-35.4); Mean Corpuscular Hemoglobin 30.6 pg (27.0-31.2); Mean Corpuscular Volume 96.8 fl (81-99); Mean Platelet Volume 8.1 fl (7.4-10.4); Monocytes # 0.4 K/mm3 (0.1-1.0); Monocytes % 9.3 % (1.7-9.3); Neutrophils # 3.5 K/mm3 (1.8-7.8); Neutrophils % 75.9 % (37.0-80.0); Platelet Count 204 K/mm3 (142-424); Red Cell Distribution Width 14.1 % (11.5-17.5); White Blood Count 4.7 K/mm3 (4.8-10.8)
[2020-11-30 23:54] LABS: Microscopic, Urine URINE MICROSCOPIC (MICROSCOPIC)
[2020-12-01] VITALS (16 sets, daily range): BP systolic 109–147; BP diastolic 46–80; PULSE 70–90; RESP 17–20; TEMP 36.5–36.9; O2SAT 2–97; BMI 29.2
[2020-12-01] LABS: Chloride 104 mmol/L (98-107); Sodium 133 mmol/L (136-145)
[2020-12-01 00:02] LABS: Blood Urea Nitrogen 24 mg/dl (7-17); Creatinine Clearance Estimated 26 mL/min (50-200); Estimated Glomerular Filt Rate 22 ml/min (>60); GFR (African American) 27 ML/MIN (>60)
[2020-12-01 00:03] LABS: Acetaminophen 17 ug/ml (10-30); Alanine Aminotransferase 10 U/L (12-78); Albumin Level 3.5 g/dl (3.5-5.0); Alkaline Phosphatase 128 U/L (38-126); Aspartate Amino Transferase 18 U/L (14-36); Bilirubin,Direct 0.1 mg/dl (0.0-0.4); Bilirubin,Indirect 0.4 mg/dL (0.0-0.9); Bilirubin,Total 0.5 mg/dl (0.2-1.3); Bilirubin,Unconjugated 0.4 mg/dL (0.0-1.1); Calcium 8.5 mg/dl (8.4-10.2); Carbon Dioxide 24 mmol/L (22.0-30.0); Glucose 116 mg/dl (74-100); Total Protein,Serum 5.9 g/dl (6.3-8.2)
[2020-12-01 00:05] LABS: Lactic Acid 0.6 mmol/L (0.7-2.1)
[2020-12-01 00:11] LABS: Appearance,Urine CLEAR (Clear); Bilirubin,Urine Negative (Negative); Blood, Urine Negative (Negative); Color,Urine YELLOW (Yellow); Glucose,Urine (UA) Negative (Negative); Ketones,Urine Negative (Negative); Leukocyte Esterase,Urine Negative (Negative); Nitrate,Urine Negative (Negative); PH,Urine 5.5 (5.0-8.5); Protein,Urine Negative (Negative); Specific Gravity, Urine 1.025 (1.005-1.030); Urobilinogen,Urine 0.2 EU/dl (0.2)
[2020-12-01 00:17] LABS: Ethyl Alcohol < 10 mg/dl (0-10); Salicylate < 1.0 mg/dL (2.0-20.0)
[2020-12-01 00:19] LABS: Troponin I 0.03 ng/ml (0.00-0.034)
[2020-12-01 00:20] LABS: Procalcitonin 0.524 ng/mL (0.0-2.0)
[2020-12-01 00:21] LABS: Erythrocyte Sedimentation Rate 71 mm/hr (0-30)
--- NOTE | 2020-12-01 00:22 | HMH.EDWEAK ---
ED Disposition Clinical Impression: Renal insufficiency, COPD (chronic obstructive pulmonary disease) with acute bronchitis, Chronic anemia, Acquired hypothyroidism, SIRS (systemic inflammatory response syndrome) Aortic stenosis Qualifiers: Cardiac valve disease etiology: etiology unspecified Qualified Code(s): I35.0 - Nonrheumatic aortic (valve) stenosis Disposition: Admitted as Observation Condition on Discharge: [facility] - Critical Care Critical Care Time: No Attestation: On 11/30/20, the high probability of a clinically significant, sudden or life threatening deterioration of the following system(s) required my full and direct attention, intervention and personal management. The time I documented below is in addition to time spent performing reported procedures but includes the following listed in this critical care notation. Medical Decision Making - Medical Records Medical records reviewed: Yes: I reviewed the patient's medical records. - Dirk Inquiry Pt receiving controlled substance: No Vital Signs: 11/30/20 23:31 12/01/20 00:00 12/01/20 00:30 Temperature 100.5 F H Temperature Source Rectal Pulse Rate 75 74 Pulse Rate [Left Radial] 85 Respiratory Rate 21 20 20 Blood Pressure 143/67 H 128/66 Blood Pressure [Right Arm] 124/68 Blood Pressure Mean 92 92 Blood Pressure Mean [Right Arm] 86 Blood Pressure Source [Right Arm] Automatic Cuff Blood Pressure Position [Right Arm] Supine 02 Sat by Pulse Oximetry 90 L 92 L 94 L Oxygen Delivery Method Nasal Cannula Nasal Cannula Nasal Cannula Oxygen Flow Rate (LPM) 3 3 3 12/01/20 01:10 12/01/20 01:11 Temperature Temperature Source Pulse Rate 81 78 Pulse Rate [Left Radial] Respiratory Rate Blood Pressure Blood Pressure [Right Arm] Blood Pressure Mean Blood Pressure Mean [Right Arm] Blood Pressure Source [Right Arm] Blood Pressure Position [Right Arm] 02 Sat by Pulse Oximetry Oxygen Delivery Method Oxygen Flow Rate (LPM) - Lab Data Lab results reviewed: Yes: I reviewed the patient's lab results. Lab Results 11/30/20 23:32: Urine Color Yellow, Urine Appearance Clear, Urine pH 5.5, Ur Specific [place] 1.025, Urine Protein Negative, Urine Glucose (UA) Negative, Urine Ketones Negative, Urine Blood Negative, Urine Nitrate Negative, Urine Bilirubin Negative, Urine Urobilinogen 0.2, Ur Leukocyte Esterase Negative, Ur Squamous Epith Cells 5-10 11/30/20 23:32: Urine Opiates Screen Negative, Urine Methadone Screen Negative, Ur Barbituates Screen Negative, Ur Phencyclidine Scrn Negative, Ur Amphetamines Screen Negative, U Benzodiazepines Scrn Negative, Urine Cocaine Screen Negative, U Marijuana (THC) Screen Negative 11/30/20 23:35: Chlamy pneumoniae PCR Not detected, Adenovirus (PCR) Not detected, B. pertussis DNA (PCR) Not detected, Coronavirus OC43 (PCR) Not detected, Coronavirus HKU1 (PCR) Not detected, Coronavirus 229E (PCR) Not detected, SARS-CoV-2 (PCR) Not detected, Coronavirus NL63 (PCR) Not detected, Human Metapneumovir PCR Not detected, Influenza A (H1) PCR Not detected, Influ A (H1N1/09) PCR Not detected, Influenza A (H3) PCR Not detected, Influenza Type A (PCR) Not detected, Influenza Type B (PCR) Not detected, M. pneumoniae (PCR) Not detected, Parainfluenza 1 (PCR) Not detected, Parainfluenza 2 (PCR) Not detected, Parainfluenza 3 (PCR) Not detected, Parainfluenza 4 (PCR) Not detected, RSV (PCR) Not detected, Entero/Rhino (PCR) Not detected 11/30/20 23:35: WBC 4.7 L, RBC 2.90 L, Hgb 8.9 L, Hct 28.0 L, MCV 96.8, MCH 30.6, MCHC 31.6 L, RDW 14.1, Plt Count 204, MPV 8.1, Neut % (Auto) 75.9, Lymph % (Auto) 10.3, [place] % (Auto) 9.3, Eos % (Auto) 3.7, Baso % (Auto) 0.9, Neut # (Auto) 3.5, Lymph # (Auto) 0.5 L, [place] # (Auto) 0.4, Eos # (Auto) 0.2, Baso # (Auto) 0.0, ESR 71 H 11/30/20 23:35: Sodium 133 L, Potassium 5.0, Chloride 104, Carbon Dioxide 24, Anion Gap 10.0, BUN 24 H, Creatinine 2.10 H, Estimated Creat Clear 26, Estimated GFR 22
[2020-12-01 00:24] LABS: Amphetamine/Metha Screen,Urine Negative ng/ml (<1000)
[2020-12-01 00:25] LABS: Barbiturates Screen,Urine Negative ng/ml (<200); Benzodiazepines Screen,Urine Negative ng/ml (<200)
[2020-12-01 00:26] LABS: Cannabinoid Screen,Urine Negative ng/ml (<50); Cocaine Screen,Urine Negative ng/ml (<300)
[2020-12-01 00:27] LABS: Methadone Screen,Urine Negative ng/ml (<300)
[2020-12-01 00:28] LABS: Opiate Screen,Urine Negative ng/ml (<300); Phencyclidine Screen,Urine Negative ng/ml (<25)
[2020-12-01 01:01] LABS: NT Pro Brain Natriuretic Pep. 11500 pg/mL (0-450)
[2020-12-01 01:09] LABS: T4 (Thyroxine) 7.1 ug/dl (5.53-11.0)
[2020-12-01 01:22] LABS: Thyroid Stimulating Hormone 1.15 uIU/mL (0.465-4.68)
--- NOTE | 2020-12-01 02:32 | PC.NURSE ---
PT ARRIVED TO FLOOR VIA STRETCHER FROM ED W/STAFF AT 0232
[2020-12-01 03:33] LABS: Troponin I 0.03 ng/ml (0.00-0.034)
[2020-12-01 06:25] LABS: Basophils % 0.6 % (0.1-2.0); Eosinophils # 0.1 K/mm3 (0.0-0.4); Eosinophils % 1.3 % (0.1-12.0); Hemoglobin 8.7 g/dL (12.2-16.2); Lymphocytes # 0.3 K/mm3 (0.7-4.5); Lymphocytes % 6.9 % (10-50); Mean Corpuscular HGB Conc 31.8 g/dL (31.8-35.4); Mean Corpuscular Volume 97.7 fl (81-99); Mean Platelet Volume 7.3 fl (7.4-10.4); Monocytes # 0.1 K/mm3 (0.1-1.0); Monocytes % 3.3 % (1.7-9.3); Neutrophils # 3.2 K/mm3 (1.8-7.8); Neutrophils % 87.8 % (37.0-80.0); Platelet Count 194 K/mm3 (142-424); Red Blood Count 2.81 M/mm3 (4.20-5.40); Red Cell Distribution Width 13.8 % (11.5-17.5); White Blood Count 3.6 K/mm3 (4.8-10.8)
[2020-12-01 06:30] LABS: Hematocrit 27.4 % (37.0-47.0)
[2020-12-01 06:31] LABS: MANUAL DIFFERENTIAL MANUAL DIFFERENTIAL (MANUAL DIFF)
[2020-12-01 06:34] LABS: Chloride 107 mmol/L (98-107); Potassium 5.4 mmoL/L (3.5-5.1); Sodium 135 mmol/L (136-145)
[2020-12-01 06:37] LABS: Anion Gap 10.4 mEq/L (5-15); Blood Urea Nitrogen 25 mg/dl (7-17); Calcium 8.5 mg/dl (8.4-10.2); Carbon Dioxide 23 mmol/L (22.0-30.0); Creatinine Clearance Estimated 28 mL/min (50-200); Estimated Glomerular Filt Rate 24 ml/min (>60); GFR (African American) 29 ML/MIN (>60)
[2020-12-01 06:38] LABS: Magnesium 1.9 mg/dl (1.6-2.3)
[2020-12-01 06:48] LABS: Troponin I 0.02 ng/ml (0.00-0.034)
--- NOTE | 2020-12-01 06:49 | PC.NURSE ---
No acute changes noted since arrival to floor. No complaints stated. VSS. Pt remains on3L O2 NC. Lungs have coarse crackles. BS active. She is currently afebrile. Call light within reach. No concerns at this time. Will continue to monitor.
[2020-12-01 07:00] LABS: Glucose 158 mg/dl (74-100)
[2020-12-01 07:04] LABS: Hypochromasia 1+; Lymphocytes % 3 % (10-50); Neutrophils % 88 % (42-76); Platelet Estimate Normal; Rouleaux 1+; Total Cells Counted 100
--- NOTE | 2020-12-01 09:35 | HMH.HP ---
*Admission Date: 12/01/20 *Chief complaint: Shortness of breath, fever *History of present illness: Ms. Bassett is an 85-year-old female with complex past medical history (see subsequent medical history and note) who presented with fever last night to the ER. She has had a protracted course recently with visit on the for confusion. Was diagnosed with a UTI and started on ciprofloxacin. Patient states yesterday she had a fever, some shortness of breath, and her family was concerned. She presented to the ER where she was found to have new oxygen requirement and fever. Work-up consistent with bilateral opacification lower lung [place] on chest x-ray, severely elevated BNP, and mild electrolyte disturbances. Diagnosed with COPD exacerbation with new oxygen requirement and admitted to medicine for further management. On assessment this morning, patient is very pleasant, stable on 2 L nasal cannula. Afebrile and hemodynamically stable. Denies any chest pain, nausea, vomiting. Lungs are crackly bilaterally. Given elevated BNP, new oxygen requirement, exam findings, concern for CHF as a concurrent problem with patient's acute illness. Tolerated breakfast this morning without difficulty. No other complaints today. [facility] History I have reviewed the patient's past medical history: Yes Medical History: Reports:: Anxiety, Arrhythmia, Atrial Fibrillation, Congestive Heart Failure, Coronary Artery Disease, Depression, Heart Murmur, Hyperlipidemia, Hypertension, Renal Disease Denies:: Cancer (Breast), Diabetes Mellitus Type 1, Diabetes Mellitus Type 2, MRSA *Have you ever received a pneumonia vaccine?: Yes *Have you received a flu vaccine this season?: No Other Medical History: Reports: Anemia, Arthritis, Hormone Therapy, Hypothyroidism, Radiation Therapy Laterality Cases: Left: Breast Biopsy, Lumpectomy, Right: Total Hip Replacement Other Surgeries: Yes: Colonoscopy, Other Amputation: No Fractures: No - *Social History Smoking Status: Former smoker Tobacco Type: cigarettes Alcohol Intake: former Alcohol Intake Frequency:: holidays/special occasions only Substance Use Type: denies use *Occupational Status:: retired Housing: house Household Members: family *Travel in the last 8 weeks: None - Psychiatric History Pschychiatric History:: Reports:: Anxiety, Depression Family Hx:: Anemia, Cancer, Diabetes, Hyperlipidemia, Hypertension, Kidney Disease, Stroke, Thyroid Disorder GUN FERTILIZER history: No GUN FERTILIZER history Review of Systems - Review of Systems Review of systems:: pertinent systems reviewed and negative unless documented below (14 point review of systems performed, pertinent positives and negatives as per HPI) - *Neurologic Reports weakness, Denies abnormal speech, Denies localized weakness, Denies headache(s), Denies seizure-like activity Meds Home Medications Medication Instructions Recorded Confirmed Type apixaban 2.5 mg tablet 2.5 mg PO BID 11/03/18 12/01/20 History labetalol 200 mg tablet 200 mg PO BID 11/03/18 12/01/20 History vitamin A-vit C-vit E-zinc-Cu 2 tab PO BID 11/03/18 11/26/20 History tablet Amlodipine Besylate [Amlodipine 5 mg PO DAILY 02/25/20 12/01/20 History 5mg tab] Acetaminophen [Acetaminophen 325mg 650 mg PO Q4HP PRN tab 03/01/20 12/01/20 Rx tab] Cetirizine HCl 10 mg PO DAILY 03/01/20 11/26/20 History Hydralazine HCl [Apresoline 10mg 10 mg PO TID 03/01/20 12/01/20 History tablet] Isosorbide Mononitrate [Imdur 60mg 60 mg PO DAILY 03/01/20 12/01/20 History ER tablet] Levothyroxine Sodium 25 mcg PO DAILY 03/01/20 12/01/20 History [Levothyroxine 25mcg (0.025mg) Tab] Ciprofloxacin HCl [Cipro 500mg 500 mg PO BID #20 tab 11/26/20 12/01/20 Rx Tab] Omeprazole [Omeprazole 20mg 20 mg PO DAILY 12/01/20 12/01/20 History Capsule] Venlafaxine HCl [Venlafaxine HCl 75 mg PO DAILY 12/01/20 12/01/20 History ER] Allergies Allergy/AdvReac Type Severity Reaction Status Date /
--- NOTE | 2020-12-01 13:17 | HMH.PHAVTE ---
[facility] Pharmacy VTE Monitoring - Patient Demographics Admission date: 12/01/20 Report Date: 12/01/20 Time: 13:17 Allergies/Adverse Reactions: Patient Allergies iodine [IODINE] Allergy (Severe, Verified 05/02/20 11:32) S-ANAPHYLAXIS Sulfa (Sulfonamide Antibiotics) [SULFA (SULFONAMIDE ANTIBIOTICS)] Allergy (Severe, Verified 05/02/20 11:32) I-HIVES Penicillins [PENICILLINS] Allergy (Intermediate, Verified 05/02/20 11:32) I-RASH codeine [CODEINE] Allergy (Unknown, Verified 05/02/20 11:32) NA-HALLUCINATIONS hydrogen peroxide Allergy (Unknown, Verified 05/02/20 11:32) Height: 1.73 m Weight: 87.628 kg Patient Problems: Current Active Problems Renal insufficiency (Acute) Chronic anemia (Acute) Atrial fibrillation (Chronic) Acquired hypothyroidism (Chronic) UTI (urinary tract infection) (Acute) COPD (chronic obstructive pulmonary disease) with acute bronchitis (Acute) Aortic stenosis (Acute) SIRS (systemic inflammatory response syndrome) (Acute) Acute on chronic diastolic CHF (congestive heart failure) (Acute) Acute hypoxemic respiratory failure (Acute) - VTE Risk Labs: VTE Related Lab Results Hgb 8.7 g/dL (12.2-16.2) L 12/01/20 06:00 Hct 27.4 % (37.0-47.0) L 12/01/20 06:00 Plt Count 194 K/mm3 (142-424) 12/01/20 06:00 BUN 25 mg/dl (7-17) H 12/01/20 06:00 Creatinine 2.00 mg/dl (0.52-1.04) H 12/01/20 06:00 Estimated Creat Clear 28 mL/min (50-200) 12/01/20 06:00 VTE Risk Level: Moderate Risk - Prophylaxis Types of VTE Prophylaxis: TEDS Knee High (AZAR HOSE ORDER PLACED), Pharmacological Location of Applied Device: Not Applicable Pharmacologic Type: Other (ELIQUIS 2.5 MG BID ORDERED)
--- NOTE | 2020-12-01 15:56 | PC.NURSE ---
Pt is alert and oriented x4. Crackles noted posteriorly. O2 weaned to 1.5L NC, pt tolerating well. Will continue to wean as appropriate. She has ambulated to the bathroom with standby assist. She has had 1000 mls of urine out. She states she is feeling better. No complaints verbalized.
[2020-12-01 17:46] LABS: Chloride 107 mmol/L (98-107); Sodium 138 mmol/L (136-145)
[2020-12-01 17:49] LABS: Blood Urea Nitrogen 31 mg/dl (7-17); Creatinine Clearance Estimated 24 mL/min (50-200); Estimated Glomerular Filt Rate 19 ml/min (>60); GFR (African American) 23 ML/MIN (>60)
[2020-12-01 17:50] LABS: Calcium 8.8 mg/dl (8.4-10.2); Carbon Dioxide 24 mmol/L (22.0-30.0); Glucose 167 mg/dl (74-100)
[2020-12-02] VITALS: BP 153/62; PULSE 77; PULSE 80; RESP 17; TEMP 36.9; O2SAT 93
--- NOTE | 2020-12-02 03:31 | PC.NURSE ---
No acute changes noted. Pt has slept at intervals. Has not c/o any pain this shift. Remains on 1.5 L O2 NC. O2 sats in low 90s. Coarse crackles noted to posterior lung mayfield. BS x4. BM 12/01. Pt has ambulated to BR with assist x1. Has tolerated well. Pt has been NSR on telemetry. Call light within reach. Will continue to monitor.
[2020-12-02 04:00] VITALS: BP 153/63; PULSE 70; PULSE 71; RESP 17; TEMP 36.8; O2SAT 94
[2020-12-02 05:00] VITALS: BMI 28.5
[2020-12-02 05:30] VITALS: O2SAT 91
[2020-12-02 06:27] LABS: Basophils # 0.1 K/mm3 (0-0.2); Eosinophils # 0.1 K/mm3 (0.0-0.4); Eosinophils % 2.3 % (0.1-12.0); Hematocrit 27.6 % (37.0-47.0); Hemoglobin 8.8 g/dL (12.2-16.2); Lymphocytes # 0.6 K/mm3 (0.7-4.5); Lymphocytes % 11.1 % (10-50); Mean Corpuscular HGB Conc 31.7 g/dL (31.8-35.4); Mean Corpuscular Hemoglobin 30.5 pg (27.0-31.2); Mean Corpuscular Volume 96.2 fl (81-99); Mean Platelet Volume 7.7 fl (7.4-10.4); Monocytes # 0.4 K/mm3 (0.1-1.0); Monocytes % 6.9 % (1.7-9.3); Neutrophils # 4.3 K/mm3 (1.8-7.8); Neutrophils % 78.6 % (37.0-80.0); Platelet Count 241 K/mm3 (142-424); Red Blood Count 2.87 M/mm3 (4.20-5.40); Red Cell Distribution Width 14.2 % (11.5-17.5); White Blood Count 5.4 K/mm3 (4.8-10.8)
[2020-12-02 06:38] LABS: Alanine Aminotransferase 12 U/L (12-78); Albumin Level 3.4 g/dl (3.5-5.0); Albumin/Globulin Ratio 1.5 (1.1-1.8); Alkaline Phosphatase 112 U/L (38-126); Anion Gap 12.7 mEq/L (5-15); Aspartate Amino Transferase 19 U/L (14-36); Bilirubin,Total 0.3 mg/dl (0.2-1.3); Blood Urea Nitrogen 35 mg/dl (7-17); Calcium 8.8 mg/dl (8.4-10.2); Carbon Dioxide 25 mmol/L (22.0-30.0); Chloride 105 mmol/L (98-107); Creatinine Clearance Estimated 24 mL/min (50-200); Estimated Glomerular Filt Rate 20 ml/min (>60); GFR (African American) 24 ML/MIN (>60); Globulin 2.2 g/dL (1.3-3.2); Glucose 108 mg/dl (74-100); Magnesium 1.9 mg/dl (1.6-2.3); Potassium 4.7 mmoL/L (3.5-5.1); Sodium 138 mmol/L (136-145); Total Protein,Serum 5.6 g/dl (6.3-8.2)
--- NOTE | 2020-12-02 07:53 | CA_ITS ---
APPROVED REPORT EXAM: Comprehensive 2D, Doppler, and color-flow Echocardiogram Meat Butcher: Laurie Jalloh RT(R) Ht: 5 ft 8 in Wt: 188lbs BSA: 1.99 BP: 142/67 mmHg Indications: CP, Murmur, COPD, ex smoker, edema, HTN, HLD, AFIB, anxiety, CAD 2D Dimensions LVOT 2.00 cm (M/F) 1.5-2.5 LVEF (Paul's) 51.20 % F: 54 - 74 LV Volume 122.20 mL F: 46 - 106 LV Volume Index 61.40 mL/m2 F: 29 - 61 LA Volume 83.50 mL LA Volume Index 41.95 mL/m2 (M/F) 16-34 M-Mode Dimensions RVDd 3.25 cm (0.9-2.6) LA Diam 4.92 cm (1.9-4.0) LVDd 5.94 cm (3.5-5.7) Ao Diam 2.91 cm (2.0-3.7) LVDs 4.09 cm (3.5-5.7) IVSd 0.80 cm (0.6-1.1) PWd 1.20 cm (0.6-1.1) EF (Teich) 58.00% FS 31.10% EDV (Teich) 175.90 mL ESV (Teich) 73.80 mL LV Diastology E Decel Time 160.00 (160-240 msec) E/A Ratio 1.3 MED E' 6.00 (< 7 cm/sec) E'/MED E' Ratio 19.13 (>14) LAT E' 9.20 (<10 cm/sec) E/LAT E' Ratio 12.48 (>14) Aortic Valve LVOT Max 120.00 (70-110 cm/s) LVOT VTI 26.79 cm AoV Peak Moe. 198.00 (50-130 cm/s) AO Peak GR. 15.70 mmHg AO Mean GR. 7.80 (<5 mmHg) AO VTI 41.08 (18-25 cm) SERINA (VTI) 2.05 (2.5-4.5 cm2) Mitral Valve MV E Max Moe. 115.00 (40-130 cm/s) MV A Velocity 88.00 (40-130 cm/s) E/A Ratio 1.30 MV Decel. Time 160.00 (160-240 ms) MV PHT 47.00 ms Tricuspid Valve TR P. Velocity 294.00 cm/s RAP Estimate 15.00 mmHg RVSP 49.60 mmHg Left Ventricle Left atrium is moderately enlarged, left ventricle is normal size, mild concentric left ventricular hypertrophy, visually estimated ejection fraction 55% with no regional wall motion abnormality, grade 2 diastolic dysfunction seen with tissue Doppler evidence of raise left atrial pressure. Right Ventricle Right atrium and right ventricle are relatively normal size and function. Aortic Valve Aortic valve is thickened and calcified without Doppler evidence of aortic stenosis, there is mild aortic insufficiency. Mitral Valve Mitral valve leaflets are minimally thickened, there is mild mitral regurgitation. Tricuspid Valve Tricuspid grossly normal, there is mild tricuspid regurgitation, tricuspid regurgitation jet velocity is inadequate for calculation of the right ventricular systolic pressure. Pulmonic Valve Pulmonic valve is poorly visualized. Great Vessels Aortic root is normal size Pericardium No significant pericardial effusion noted. Conclusion 1. Moderately enlarged left atrium, normal left ventricular size, mild concentric left ventricular hypertrophy, visually estimated ejection fraction 55% with no regional wall motion abnormality, grade 2 diastolic dysfunction seen with tissue Doppler evidence of raise left atrial pressure. 2. Thickened and calcified aortic valve with mild aortic insufficiency. 3. Mild mitral and tricuspid regurgitation. 4. No significant pericardial effusion noted. Electronically signed by : Carlos Monsivais, 12/02/2020 19:49:44
[2020-12-02 08:00] VITALS: BP 148/67; PULSE 86; RESP 22; TEMP 36.8; O2SAT 90
--- NOTE | 2020-12-02 08:05 | HMH.ACPN2 ---
Internal Medicine - PN: Subj *Date: 12/02/20 *Time: 08:05 Interval history: Overall patient feels vastly improved since admission. Notes that she is much less short of air. Still wearing oxygen. Had an excellent urine output over the past 12 hours Exam Vital signs and Labs for Last 24 Hours: Temp Pulse Resp BP Pulse Ox 98.2 F 71 17 153/63 H 91 L 12/02/20 04:00 12/02/20 04:00 12/02/20 04:00 12/02/20 04:00 12/02/20 05:30 Laboratory Results - last 24 hr 12/01/20 17:13: Sodium 138, Potassium 5.0, Chloride 107, Carbon Dioxide 24, Anion Gap 12.0, BUN 31 H, Creatinine 2.40 H, Estimated Creat Clear 24, Estimated GFR 19 L*, Est GFR ( Amer) 23 L D, Glucose 167 H, Calcium 8.8 12/02/20 05:49: WBC 5.4 D, RBC 2.87 L, Hgb 8.8 L, Hct 27.6 L, MCV 96.2, MCH 30.5, MCHC 31.7 L, RDW 14.2, Plt Count 241, MPV 7.7, Neut % (Auto) 78.6, Lymph % (Auto) 11.1, [place] % (Auto) 6.9, Eos % (Auto) 2.3, Baso % (Auto) 1.0, Neut # (Auto) 4.3, Lymph # (Auto) 0.6 L, [place] # (Auto) 0.4, Eos # (Auto) 0.1, Baso # (Auto) 0.1 12/02/20 05:49: Sodium 138, Potassium 4.7, Chloride 105, Carbon Dioxide 25, Anion Gap 12.7, BUN 35 H, Creatinine 2.30 H, Estimated Creat Clear 24, Estimated GFR 20 L, Est GFR ( Amer) 24 L, Glucose 108 H D, Calcium 8.8, Magnesium 1.9, Total Bilirubin 0.3, AST 19, ALT 12, Alkaline Phosphatase 112, Total Protein 5.6 L, Albumin 3.4 L, Globulin 2.2, Albumin/Globulin Ratio 1.5 I & O for Last 24 hours: Intake & Output 11/29/20 11/30/20 12/01/20 12/02/20 11:59 11:59 11:59 11:59 Intake Total 1750 / 1750 720 / 720 Output Total 1000 / 1000 Balance 1750 / 1750 -280 / -280 Weight 193 lb 3 oz 188 lb 1 oz Narrative: Alert, pleasant, oriented x3. Oropharynx clear. No JVD. Bibasilar faint crackles. Heart rate regular. Holosystolic murmur noted-old finding. No visible peripheral edema, wearing compression stockings. Neurologic exam grossly intact. Assessment and Plan (1) Acute on chronic diastolic CHF (congestive heart failure) Status: Acute Category: Medical Code(s): I50.33 - Acute on chronic diastolic (congestive) heart failure (2) Acquired hypothyroidism Status: Chronic Category: Medical Code(s): E03.9 - Hypothyroidism, unspecified (3) UTI (urinary tract infection) Status: Acute Qualifiers: Urinary tract infection type: acute cystitis Category: Medical Code(s): N39.0 - Urinary tract infection, site not specified (4) Atrial fibrillation Status: Chronic Qualifiers: Category: Medical Code(s): I48.91 - Unspecified atrial fibrillation (5) Acute hypoxemic respiratory failure Status: Acute Category: Medical Code(s): J96.01 - Acute respiratory failure with hypoxia - Assessment and plan all Dx Assessment and Plan for all problems:: Check echocardiogram today. Adjust medications as indicated based on findings. Excellent response to diuretics. If echo acceptable and patient's oxygenation status is normal through the morning consider discharge home. PT/OT evaluation for home health. Patient is actually finished up 1 week of antibiotics for UTI. If discharged consider atypical therapy.
--- NOTE | 2020-12-02 09:31 | HMH.OTEV ---
OT Inpatient Evaluation Rehab OT IP Evaluation Start: 12/02/20 08:05 Freq: ONCE Status: Complete Protocol: Document 12/02/20 09:22 SAADIA (Rec: 12/02/20 09:29 [facility] [id number]) Rehab OT IP Assessment Subjective History Pt oriented x 3 on arrival. Pt agreeable to engage in therapy evaluation. Pt was admitted via ED on 12/01/20 due to prgressive weakness from UTI. Pt has a past medical history of Anxiety, Arrhythmia , A-fib, congestive heart failure, hyperlipidemia, CAD, Depression, and HTN. Pt reports prior to being admitted she lived at home alone and was independent with all ADLS and IADLs. She did not use any AE during ambulation. Subjective I am ready to go home. Objective Patient Orientation Person,Place,Birthday Upper Extremity Gross ROM WFL Bed Mobility bed mobility-scooting,bed mobility - supine/sit,bed mobility - rolling Assist Level Supervision/Stand by Transfer Training Sit/Stand Transfer Assist Level Supervision/Stand by Chair Transfer Ability Supervision/Stand by Chair Transfer Technique Sit to/from Ambulatory Chair Transfer Assistive Devices None Lower Body Dressing Ability Standby Assistance Upper Body Dressing Ability Standby Assistance Performing Toilet Hygiene Ability Standby Assistance Overall Commode/Toilet Transfer Ability Standby Assistance Commode/Toilet Transfer Technique Sit to/from Ambulatory Rehab OT IP prob,goals,plan Problems Date of Evaluation: 12/02/20 Rehab Potential Rehab Potential Innapropriate for Skilled Therapy Discharge Plan OT Discharge Plan Pt appears to be at baseline functionally. No further tx required at this time. Pt is safe to return home once medically stable. Eval Complexity Eval Charge Codes 92677 - Moderate Complexity G Codes G -code Required No PHYSICIAN CERTIFICATION: I certify the specified therapy services for Aileen Bassett are required, authorized, and reviewed every 30 days.
--- NOTE | 2020-12-02 11:12 | HMH.PTEV ---
Physical Therapy Evaluation Rehab PT IP Evaluation Start: 12/02/20 08:05 Freq: ONCE Status: Active Protocol: Document 12/02/20 11:08 CONCHITA (Rec: 12/02/20 11:12 CONCHITA [id number]) Subjective/History History History This is the initial IP PT evalaution for Aileen Bassett. Pt is an 85 y/o female admitted to [facility] for exacerbation of underlying COPD. Pt lives in 1st floor, handicap accessible apartment w/ assist from neighbors and daughter. Pt does not use AD' s for ambulation at home Subjective Subjective no complaints from pt Rehab PT IP Eval Objective Appearance Patient Behavior Appropriate,Cooperative Patient Orientation Person,Place,Time Difficulty following instructions none Speech Pattern Clear,Appropriate Ambulation Patient Able to Ambulate Yes Ambulation Observation IP General Gait Pattern Observation No Deviations/Normal Ambulation Distance (feet) 100 Ambulation Assistive Device None Ambulation Ability Supervision/Stand by Balance Ability to Arise Able, uses arms to help Sitting Balance Steady, safe Standing Balance Narrow stance w/o support Dynamic Sitting Balance Ability Normal Dynamic Standing Balance Ability Good Transfers Bed Transfer Ability Independent Chair Transfer Ability Independent Sit to Stand Bed Transfer Ability Independent Sit to Stand Chair Transfer Ability Independent ROM All Extremities PT ROM Status WFL MMT All Extremities PT MMT WFL Rehab PT IP prob,goals,plan Problems Date of Evaluation: 12/02/20 Rehab Potential Rehab Potential Innapropriate for Skilled Therapy Equipment Needs Assistive Devices None / NA Discharge Plan PT Discharge Plan Pt safe to dc home once medically stable - skilled therapy not needed at this time - if pt has decline in function PT will gladly re- evaluate pt. G -code Required Yes Eval Complexity Eval Charge Codes 08906 - Low Complexity G Codes PT Current Status Mobility PT Current Status Modifier CI-At least 1% but less than 20% impaired, limited or restricted PT Goal Status M
[2020-12-02 11:33] VITALS: BMI 28.3
[2020-12-02 12:00] VITALS: BP 105/49; PULSE 60; PULSE 63; RESP 20; TEMP 36.8; O2SAT 90
--- NOTE | 2020-12-02 14:14 | HMH.DCSUM ---
General - General Admission date:: 12/01/20 Discharge date: 12/02/20 HPI HPI: Ms. Basestt is an 85-year-old female with complex past medical history (see subsequent medical history and note) who presented with fever last night to the ER. She has had a protracted course recently with visit on the for confusion. Was diagnosed with a UTI and started on ciprofloxacin. Patient states yesterday she had a fever, some shortness of breath, and her family was concerned. She presented to the ER where she was found to have new oxygen requirement and fever. Work-up consistent with bilateral opacification lower lung mayfield on chest x-ray, severely elevated BNP, and mild electrolyte disturbances. Diagnosed with COPD exacerbation with new oxygen requirement and admitted to medicine for further management. On assessment this morning, patient is very pleasant, stable on 2 L nasal cannula. Afebrile and hemodynamically stable. Denies any chest pain, nausea, vomiting. Lungs are crackly bilaterally. Given elevated BNP, new oxygen requirement, exam findings, concern for CHF as a concurrent problem with patient's acute illness. Tolerated breakfast this morning without difficulty. No other complaints today. Hospital Course Hospital Course: Patient was admitted, diuresed and had a very brisk response with good improvement in oxygenation and dyspnea. Continue to have an oxygen requirement throughout the night and this morning. However it was improved. Echocardiogram today preliminarily shows EF 55% and good wall motion. Consistent with diastolic dysfunction. Patient notes she has previously been on Lasix but was stopped several years ago for unknown reason. Plan will be to to discharge home today. Lasix daily, azithromycin for wrap-up of COPD exacerbation and close follow-up in the office. Objective Vital signs: Temp Pulse Resp BP Pulse Ox 98.2 F 63 20 105/49 L 90 L 12/02/20 12:00 12/02/20 12:00 12/02/20 12:00 12/02/20 12:00 12/02/20 12:00 no acute distress - *Routine HEENT Exam Head: Present: normocephalic Eye: Present: EOMI, PERRL ENT: Present: mucous membranes moist - *Routine Neck Exam Present: supple - *Routine Respiratory Exam Present: rales Comments: Bibasilar crackles vastly improved - *Routine Cardiovascular Exam Present: RRR, murmur - *Routine Abdominal Exam Present: soft, normoactive bowel sounds. Absent: tenderness - *Routine Extremities Exam Absent: cyanosis, clubbing, edema - *Routine Skin Exam Present: warm. Absent: rash - Detailed Eye Exam Eyelids: Bilateral normal inspection Results Labs on day of discharge: Labs from last 24 hours 12/02/20 12/02/20 12/01/20 05:49 05:49 17:13 WBC 5.4 D RBC 2.87 L Hgb 8.8 L Hct 27.6 L MCV 96.2 MCH 30.5 MCHC 31.7 L RDW 14.2 Plt Count 241 MPV 7.7 Neut % (Auto) 78.6 Lymph % (Auto) 11.1 [place] % (Auto) 6.9 Eos % (Auto) 2.3 Baso % (Auto) 1.0 Neut # (Auto) 4.3 Lymph # (Auto) 0.6 L [place] # (Auto) 0.4 Eos # (Auto) 0.1 Baso # (Auto) 0.1 Sodium 138 138 Potassium 4.7 5.0 Chloride 105 107 Carbon Dioxide 25 24 Anion Gap 12.7 12.0 BUN 35 H 31 H Creatinine 2.30 H 2.40 H Estimated Creat Clear 24 24 Estimated GFR 20 L 19 L* Est GFR ( Amer) 24 L 23 L D Glucose 108 H D 167 H Calcium 8.8 8.8 Magnesium 1.9 Total Bilirubin 0.3 AST 19 ALT 12 Alkaline Phosphatase 112 Total Protein 5.6 L Albumin 3.4 L Globulin 2.2 Albumin/Globulin Ratio 1.5 DS: Diagnosis - Discharge Diagnosis (1) Acute on chronic diastolic CHF (congestive heart failure) Status: Acute (2) Acquired hypothyroidism Status: Chronic (3) UTI (urinary tract infection) Status: Acute (4) Atrial fibrillation Status: Chronic (5) Acute hypoxemic respiratory failure Status: Acute Discharge Plan - Patie
== END 2020-12-02 15:20 | disposition home or self-care (01) ==
LOC: ER 23:46 → 2ND 12-01 00:48
PROVIDERS: Internal Medicine Adolescent Medicine; Admitting Provider Emergency Medicine; Emergency Provider Emergency Medicine; PCP Internal Medicine Adolescent Medicine; Visit Provider Internal Medicine Adolescent Medicine
DX: J44.1 Chronic obstructive pulmonary disease with (acute) exacerbation (principal); I11.0 Hypertensive heart disease with heart failure; I50.33 Acute on chronic diastolic (congestive) heart failure; I48.91 Unspecified atrial fibrillation; I25.10 Atherosclerotic heart disease of native coronary artery without angina pectoris; E03.9 Hypothyroidism, unspecified; Z79.899 Other long term (current) drug therapy; Z79.890 Hormone replacement therapy; Z79.01 Long term (current) use of anticoagulants; Z88.0 Allergy status to penicillin; Z88.2 Allergy status to sulfonamides; Z88.8 Allergy status to other drugs, medicaments and biological substances; J95.01 Hemorrhage from tracheostomy stoma
CPT/HCPCS: 36415; 71045; 80048; 80053; 80076; 80305; 80329; 81001; 82803; 83605; 83735; 83880; 84145; 84436; 84443; 84484; 85007; 85025; 85651; 86140; 87040; 87070; 87205; 87581; 87633; 87798; 93005; 93306; 94640; 94760; 96365; 96367; 96375; 97161; 97166; 99283; G0378; J1956

== ENCOUNTER 2021-02-27 06:05 | Inpatient (IN) | payer MEDICARE, MEDICAID, SELFPAY ==
[2021-02-27] VITALS (49 sets, daily range): BP systolic 87–152; BP diastolic 49–78; PULSE 98–131; RESP 20–107; TEMP 36.6–38.4; O2SAT 89–98; BMI 30.7; BMI 30.8; BMI 36.2
--- NOTE | 2021-02-27 06:09 | XR_ITS ---
PROCEDURE INFORMATION: Exam: XR Chest Exam date and time: 02/27/2021 6:09 AM Age: 85 years old Clinical indication: Shortness of breath; Additional info: SOA TECHNIQUE: Imaging protocol: XR of the chest. Views: 1 view. COMPARISON: 1. CR XR CHEST PORTABLE 11/30/2020 11:41 PM 2. CR XR CHEST PORTABLE 11/26/2020 4:30 PM 3. CR XR CHEST PORTABLE 12/28/2019 9:43 PM 4. CR CXR1VP XR chest portable 06/04/2018 4:42 PM FINDINGS: Tubes, catheters and devices: Multiple overlying cardiac leads are present. Lungs: Bilateral diffuse pulmonary vascular/interstitial prominence. Bilateral streaky opacities noted, compatible with subsegmental atelectasis. Pleural spaces: Unremarkable. No pleural effusion. No pneumothorax. Heart/Mediastinum: The cardiomediastinal silhouette appears essentially similar. Bones/joints: Unremarkable. Soft tissues: Left axillary surgical clips may relate to prior lymphadenectomy. IMPRESSION: No significant interval change.
--- NOTE | 2021-02-27 06:10 | ECG_ITS ---
APPROVED REPORT Exam: Resting ECG HR:111 bpm ECG Measurements Heart Rate 111 AXES QRSd 100 QRS -16 QT 288 T 125 QTc 391 Conclusion Atrial fibrillation with rapid ventricular response ST & T wave abnormality, consider lateral ischemia or rate effect Abnormal ECG Electronically signed by : Jeremy Pride, 02/27/2021 18:03:57
[2021-02-27 06:18] LABS: Chloride 106 mmol/L (98-107); Potassium 5.1 mmoL/L (3.5-5.1); Sodium 137 mmol/L (136-145)
[2021-02-27 06:21] LABS: Anion Gap 13.1 mEq/L (5-15); Blood Urea Nitrogen 35 mg/dl (7-17); Calcium 8.8 mg/dl (8.4-10.2); Carbon Dioxide 23 mmol/L (22.0-30.0); Creatinine Clearance Estimated 19 mL/min (50-200); Estimated Glomerular Filt Rate 16 ml/min (>60); GFR (African American) 19 ML/MIN (>60); Glucose 106 mg/dl (74-100)
[2021-02-27 06:23] LABS: Basophils % 0.4 % (0.1-2.0); Eosinophils # 0.1 K/mm3 (0.0-0.4); Eosinophils % 0.4 % (0.1-12.0); Lymphocytes # 0.7 K/mm3 (0.7-4.5); Lymphocytes % 6.2 % (10-50); Mean Corpuscular HGB Conc 31.7 g/dL (31.8-35.4); Mean Corpuscular Hemoglobin 26.6 pg (27.0-31.2); Mean Corpuscular Volume 83.9 fl (81-99); Mean Platelet Volume 7.7 fl (7.4-10.4); Monocytes # 0.8 K/mm3 (0.1-1.0); Monocytes % 7.7 % (1.7-9.3); Neutrophils % 85.2 % (37.0-80.0); Platelet Count 243 K/mm3 (142-424); Red Blood Count 2.29 M/mm3 (4.20-5.40); Red Cell Distribution Width 16.1 % (11.5-17.5); White Blood Count 10.5 K/mm3 (4.8-10.8)
--- NOTE | 2021-02-27 06:27 | HMH.EDGENADL ---
ED Disposition Clinical Impression: Anemia requiring transfusions Disposition: Admitted As Inpatient Condition on Discharge: Fair Referrals: Jeremy Pride MD [Primary Care Provider] - - Critical Care Critical Care Time: No Attestation: On , the high probability of a clinically significant, sudden or life threatening deterioration of the following system(s) required my full and direct attention, intervention and personal management. The time I documented below is in addition to time spent performing reported procedures but includes the following listed in this critical care notation. Medical Decision Making - Medical Records Medical records reviewed: Yes: I reviewed the patient's medical records. - Dirk Inquiry Pt receiving controlled substance: No Vital Signs: 02/27/21 06:03 02/27/21 06:12 02/27/21 06:15 Temperature 99.5 F Temperature Source Oral Pulse Rate 131 H 111 H Pulse Rate [Apical] 107 H Respiratory Rate 21 26 H 27 H Blood Pressure Blood Pressure [Right Arm] 115/66 Blood Pressure Mean Blood Pressure Mean [Right Arm] 82 Blood Pressure Source [Right Arm] Automatic Cuff 02 Sat by Pulse Oximetry 96 98 97 Oxygen Delivery Method Nasal Cannula Oxygen Flow Rate (LPM) 2 2 2 02/27/21 06:30 02/27/21 06:36 02/27/21 06:45 Temperature Temperature Source Pulse Rate 119 H 100 H Pulse Rate [Apical] Respiratory Rate 25 H 24 Blood Pressure 128/69 Blood Pressure [Right Arm] Blood Pressure Mean 88 Blood Pressure Mean [Right Arm] Blood Pressure Source [Right Arm] 02 Sat by Pulse Oximetry 97 89 L 97 Oxygen Delivery Method Room Air Oxygen Flow Rate (LPM) 2 02/27/21 07:13 02/27/21 07:14 02/27/21 07:15 Temperature Temperature Source Pulse Rate 117 H 128 H 108 H Pulse Rate [Apical] Respiratory Rate 39 H 41 H 37 H Blood Pressure 134/69 Blood Pressure [Right Arm] Blood Pressure Mean 90 Blood Pressure Mean [Right Arm] Blood Pressure Source [Right Arm] 02 Sat by Pulse Oximetry 93 L 93 L 93 L Oxygen Delivery Method Oxygen Flow Rate (LPM) 02/27/21 07:30 02/27/21 08:00 Temperature Temperature Source Pulse Rate 118 H 107 H Pulse Rate [Apical] Respiratory Rate 24 24 Blood Pressure 140/74 133/65 Blood Pressure [Right Arm] Blood Pressure Mean 92 97 Blood Pressure Mean [Right Arm] Blood Pressure Source [Right Arm] 02 Sat by Pulse Oximetry 91 L 91 L Oxygen Delivery Method Oxygen Flow Rate (LPM) - Lab Data Lab Results 02/27/21 05:30: WBC 10.5, RBC 2.29 L, Hgb 6.1 L*, Hct 19.2 L*, MCV 83.9, MCH 26.6 L, MCHC 31.7 L, RDW 16.1, Plt Count 243, MPV 7.7, Neut % (Auto) 85.2 H, Lymph % (Auto) 6.2 L, [place] % (Auto) 7.7, Eos % (Auto) 0.4, Baso % (Auto) 0.4, Neut # (Auto) 9.0 H, Lymph # (Auto) 0.7, [place] # (Auto) 0.8, Eos # (Auto) 0.1, Baso # (Auto) 0.0, Total Counted 100, Neutrophils % (Manual) 82 H, Lymphocytes % (Manual) 7 L, Monocytes % (Manual) 11 H, Platelet Estimate Normal, Hypochromasia 3+, Anisocytosis 1+ 02/27/21 05:30: Sodium 137, Potassium 5.1, Chloride 106, Carbon Dioxide 23, Anion Gap 13.1, BUN 35 H, Creatinine 2.80 H, Estimated Creat Clear 19, Estimated GFR 16 L*, Est GFR ( Amer) 19 L*, Glucose 106 H, Calcium 8.8, Troponin I 0.02 02/27/21 05:30: NT-Pro-B Natriuret Pep 64040 H 02/27/21 05:30: Total Bilirubin 0.6, Direct Bilirubin 0.4, Conjugated Bilirubin 0.0, Indirect Bilirubin 0.2, Unconjugated Bilirubin 0.2, AST 17, ALT 14, Alkaline Phosphatase 188 H, Total Protein 5.7 L, Albumin 3.4 L 02/27/21 05:30: Blood Type Confirm O Positive 02/27/21 06:55: Blood Type O Positive, Crossmatch (AHG) See Detail 02/27/21 06:55: PT 12.7 H, INR 1.08 02/27/21 07:15: SARS-CoV-2 (PCR) Not detected, Influenza A Untype (PCR) Not detected, Influenza Type B (PCR) Not detected Result diagrams: 02/27/21 05:30 02/27/21 05:30 Orders (Tests/Meds): ED MEDICATIONS Generic Name Dose Route Start Last Admin Trade Name Freq PRN
[2021-02-27 06:30] LABS: Hematocrit 19.2 % (37.0-47.0); Hemoglobin 6.1 g/dL (12.2-16.2)
[2021-02-27 06:32] LABS: MANUAL DIFFERENTIAL MANUAL DIFFERENTIAL (MANUAL DIFF)
[2021-02-27 06:33] LABS: Troponin I 0.02 ng/ml (0.00-0.034)
[2021-02-27 06:35] LABS: NT Pro Brain Natriuretic Pep. 12500 pg/mL (0-450)
--- NOTE | 2021-02-27 06:44 | CT_ITS ---
PROCEDURE INFORMATION: Exam: CT Abdomen And Pelvis Without Contrast Exam date and time: 02/27/2021 6:44 AM Age: 85 years old Clinical indication: Abdominal pain; Additional info: Abd pain, gib TECHNIQUE: Imaging protocol: Computed tomography of the abdomen and pelvis without contrast. Radiation optimization: All CT scans at this facility use at least one of these dose optimization techniques: automated exposure control; mA and/or kV adjustment per patient size (includes targeted exams where dose is matched to clinical indication); or iterative reconstruction. COMPARISON: 1. CT ABDOMEN PELVIS WO CON 11/26/2020 4:45 PM 2. ABDPELW/O CT ABD PELVIS W/O CONTRAST 08/10/2017 5:23 PM FINDINGS: Mediastinal space: Moderate-sized hiatal hernia. Liver: The liver has mild diffusely decreased density, compatible with hepatic steatosis. Gallbladder and bile ducts: Nonvisualization, compatible with cholecystectomy. Right lung base tree-in-bud distribution nodular densities noted, probably infectious/inflammatory in nature. Pancreas: Unremarkable. No significant pancreatic ductal dilatation seen. Spleen: Unremarkable. No splenomegaly noted. Adrenal glands: Normal. No mass. Kidneys and ureters: Previously described left kidney 8 cm and 2.6 cm right kidney smoothly marginated hypodensities compatible with simple cyst. Stable left renal artery aneurysm. Stomach and bowel: Colonic diverticulosis without evidence of diverticulitis. Sigmoid region appears nondistended, likely contributing to submucosal prominence, but to a lesser degree than on prior study. Appendix: No evidence of appendicitis. Intraperitoneal space: Unremarkable. No free air. No significant fluid collection. Vasculature: Aortoiliac atherosclerotic calcifications noted without focal ectasia. Lymph nodes: Unremarkable. No enlarged lymph nodes. Urinary bladder: Unremarkable as visualized. Reproductive: Unremarkable as visualized. Bones/joints: There are age-related degenerative changes of the visualized spine. No acute fracture. Soft tissues: Fat-containing 4.8 cm umbilical hernia with 1.4 cm neck is present. IMPRESSION: 1. Right lung base tree-in-bud distribution nodular densities noted, probably infectious/inflammatory in nature. 2. Mild hepatic steatosis. 3. Colonic diverticulosis without evidence of diverticulitis. Sigmoid region appears nondistended, likely contributing to submucosal prominence, but to a lesser degree than on prior study. 4. Moderate-sized hiatal hernia. 5. Stable appearing fat-containing 4.8 cm umbilical hernia with 1.4 cm neck is present.
--- NOTE | 2021-02-27 06:45 | PC.NURSE ---
Pt's daughter, Lacy, phone # [phone]
[2021-02-27 06:48] LABS: Alanine Aminotransferase 14 U/L (12-78); Albumin Level 3.4 g/dl (3.5-5.0); Alkaline Phosphatase 188 U/L (38-126); Anisocytosis 1+; Aspartate Amino Transferase 17 U/L (14-36); Bilirubin,Direct 0.4 mg/dl (0.0-0.4); Bilirubin,Indirect 0.2 mg/dL (0.0-0.9); Bilirubin,Total 0.6 mg/dl (0.2-1.3); Bilirubin,Unconjugated 0.2 mg/dL (0.0-1.1); Hypochromasia 3+; Lymphocytes % 7 % (10-50); Monocytes % 11 % (2-9); Neutrophils % 82 % (42-76); Platelet Estimate Normal; Total Cells Counted 100; Total Protein,Serum 5.7 g/dl (6.3-8.2)
--- NOTE | 2021-02-27 07:05 | PC.NURSE ---
pt to CT
[2021-02-27 07:21] LABS: Prothrombin Time 12.7 seconds (10.1-12.5)
[2021-02-27 07:23] LABS: INR 1.08 (0.9-1.1)
--- NOTE | 2021-02-27 07:28 | PC.NURSE ---
Blood consent obtained and in patients chart
[2021-02-27 07:30] LABS: Coronavirus 19, PCR Not Detected (NotDetected); Influenza A, PCR Not Detected (NotDetected); Influenza B, PCR Not Detected (NotDetected)
--- NOTE | 2021-02-27 07:55 | PC.NURSE ---
returned call back
--- NOTE | 2021-02-27 08:06 | PC.NURSE ---
speaking with Dr Rosales
--- NOTE | 2021-02-27 08:33 | PC.NURSE ---
gave report to Leeann floor nurse at this time
--- NOTE | 2021-02-27 08:35 | PC.NURSE ---
Addendum entered by Hamida Fuentes RN 02/27/21 08:58: Blood disconnected at this time, IV flushed. Original Note: Stopped blood, pt temp check at 5 minutes 0835 increased from 99.3 oral to 100.6. Pt states she feels fine. paged. Pt temp at 0840 reading 99.6.
--- NOTE | 2021-02-27 08:43 | HMH.PHAVTE ---
[facility] Pharmacy VTE Monitoring - Patient Demographics Admission date: 02/27/21 Report Date: 02/27/21 Time: 08:43 Allergies/Adverse Reactions: Patient Allergies iodine [IODINE] Allergy (Severe, Verified 05/02/20 11:32) S-ANAPHYLAXIS Sulfa (Sulfonamide Antibiotics) [SULFA (SULFONAMIDE ANTIBIOTICS)] Allergy (Severe, Verified 05/02/20 11:32) I-HIVES Penicillins [PENICILLINS] Allergy (Intermediate, Verified 05/02/20 11:32) I-RASH codeine [CODEINE] Allergy (Unknown, Verified 05/02/20 11:32) NA-HALLUCINATIONS hydrogen peroxide Allergy (Unknown, Verified 05/02/20 11:32) Height: 1.65 m Weight: 83.915 kg Patient Problems: Current Active Problems Anemia requiring transfusions (Acute) - VTE Risk Labs: VTE Related Lab Results Hgb 6.1 g/dL (12.2-16.2) L* 02/27/21 05:30 Hct 19.2 % (37.0-47.0) L* 02/27/21 05:30 Plt Count 243 K/mm3 (142-424) 02/27/21 05:30 PT 12.7 seconds (10.1-12.5) H 02/27/21 06:55 INR 1.08 (0.9-1.1) 02/27/21 06:55 BUN 35 mg/dl (7-17) H 02/27/21 05:30 Creatinine 2.80 mg/dl (0.52-1.04) H 02/27/21 05:30 Estimated Creat Clear 19 mL/min (50-200) 02/27/21 05:30 - Prophylaxis VTE Prophylaxis Ordered?: Yes Types of VTE Prophylaxis: Pharmacological Pharmacologic Type: Other (ELIQUIS)
--- NOTE | 2021-02-27 08:52 | PC.NURSE ---
Libby CABALLERO, states if pt is feeling ok other than temp, okay to give tylenol 1gram and then to restart the blood, if any other symptoms occur to contact doctor back. Pt denies any other symptoms at this time. Rechecked temp at this time 101.1 , ADA aware.
--- NOTE | 2021-02-27 08:59 | PC.NURSE ---
Per MD blood restarted and tylenol given. Pt sitting in bed, talking at this time, denies any symptoms
--- NOTE | 2021-02-27 09:20 | PC.NURSE ---
Pt denies any symptoms at this time. In bed talking with nurse at this time
--- NOTE | 2021-02-27 09:30 | PC.NURSE ---
Pt transferred to floor bed, report of blood given to Dahiana BRYANT. Pt denies any issues at this time. Blood continuing to run
--- NOTE | 2021-02-27 09:45 | PC.NURSE ---
Notified Renee BRYANT on floor that pt did not have bc drawn in the ER when looking at the chart. IF she needed antibiotics, she needed some prior administration
[2021-02-27 09:48] LABS: Troponin I 0.02 ng/ml (0.00-0.034)
[2021-02-27 12:56] LABS: Troponin I 0.02 ng/ml (0.00-0.034)
[2021-02-27 13:00] LABS: Hemoglobin 6.2 g/dL (12.2-16.2)
--- NOTE | 2021-02-27 13:04 | PC.NURSE ---
Reported critical H&H to Dr. Rosales at this time. Awaiting further orders.
--- NOTE | 2021-02-27 13:35 | HMH.HP ---
*Admission Date: 02/27/21 *Chief complaint: fatigue, SOA *History of present illness: Ms. Bassett is a pleasant 85-year-old female with history of A. fib, CHF, CKD 4, and chronic anticoagulation who presented to the ER due to worsening shortness of breath for the past week. States she has had a mildly productive cough. Has had no geovanni fever but has had chilling over the past week. Decreased appetite as food just did not taste right . Denies any nausea or vomiting. No diarrhea, melena, hematochezia. Came to the ER because of feeling more fatigued after waking up today. On initial presentation noted to be in A. fib with RVR, have a new oxygen requirement, and labs concerning for anemia, acute on chronic kidney injury, and CHF exacerbation. Was given a dose of beta-sandra for A. fib with RVR with improvement in her heart rate. Was admitted for blood transfusion and further work-up. After assessing the patient since getting to the floor, she continues to be mildly tachypneic. Complains of being very weak. No improvement in her hemoglobin after 1 unit transfused. Continues to be short of breath and dyspneic on interview. [facility] History I have reviewed the patient's past medical history: Yes Medical History: Reports:: Anxiety, Arrhythmia, Atrial Fibrillation, Congestive Heart Failure, Coronary Artery Disease, Depression, Heart Murmur, Hyperlipidemia, Hypertension, Renal Disease Denies:: Cancer, Diabetes Mellitus Type 1, Diabetes Mellitus Type 2, MRSA *Have you ever received a pneumonia vaccine?: Yes *Have you received a flu vaccine this season?: No Other Medical History: Reports: Anemia, Arthritis, Hormone Therapy, Hypothyroidism, Radiation Therapy Laterality Cases: Left: Breast Biopsy, Lumpectomy, Right: Total Hip Replacement Other Surgeries: Yes: Colonoscopy, Other Amputation: No Fractures: No - *Social History Smoking Status: Former smoker Tobacco Type: cigarettes Alcohol Intake: never Alcohol Intake Frequency:: holidays/special occasions only Substance Use Type: denies use *Occupational Status:: retired Housing: apartment Household Members: family *Travel in the last 8 weeks: None - Psychiatric History Pschychiatric History:: Reports:: Anxiety, Depression Family Hx:: Anemia, Cancer, Diabetes, Hyperlipidemia, Hypertension, Kidney Disease, Stroke, Thyroid Disorder SHIP FASTENER history: No SHIP FASTENER history Review of Systems - Review of Systems Review of systems:: pertinent systems reviewed and negative unless documented below (14 point review of systems performed, pertinent positives and negatives as per HPI) Meds Home Medications Medication Instructions Recorded Confirmed Type apixaban 2.5 mg tablet 2.5 mg PO BID 11/03/18 02/27/21 History labetalol 200 mg tablet 200 mg PO BID 11/03/18 02/27/21 History Acetaminophen [Acetaminophen 325mg 650 mg PO Q4HP PRN tab 03/01/20 02/27/21 Rx tab] Hydralazine HCl [Apresoline 10mg 10 mg PO TID 03/01/20 02/27/21 History tablet] Isosorbide Mononitrate [Imdur 60mg 60 mg PO DAILY 03/01/20 02/27/21 History ER tablet] Levothyroxine Sodium 25 mcg PO DAILY 03/01/20 02/27/21 History [Levothyroxine 25mcg (0.025mg) Tab] Omeprazole [Omeprazole 20mg 20 mg PO DAILY 12/01/20 02/27/21 History Capsule] Venlafaxine HCl 37.5 mg PO DAILY 12/01/20 02/27/21 History Furosemide [Lasix 20mg tab] 20 mg PO DAILY 02/27/21 02/27/21 History Allergies Allergy/AdvReac Type Severity Reaction Status Date / Time iodine [IODINE] Allergy Severe S-ANAPHYLAX Verified 05/02/20 11:32 IS Sulfa (Sulfonamide Allergy Severe I-HIVES Verified 05/02/20 11:32 Antibiotics) [SULFA (SULFONAMIDE ANTIBIOTICS)] Penicillins [PENICILLINS] Allergy Intermediate I-RASH Verified 05/02/20 11:32 codeine [CODEINE] Allergy Unknown NA-HALLUCIN Verified 05/02/20 11:32 ATIONS hydrogen peroxide Allergy Unknown Verified 05/02/20 11:32 Exam Vital signs and Labs for Last 24 Hours: Temp
--- NOTE | 2021-02-27 14:19 | CA_ITS ---
APPROVED REPORT EXAM: Comprehensive 2D, Doppler, and color-flow Echocardiogram [employer]ing Machine Operator: Raven Wilkerson CRT Ht: 202 ft 12 in Wt: 185lbs BSA: 26.47 BP: 94/56 mmHg Indications: Murmur, Atrial Fibrillation, CAD, Hyperlipidemia, Hypertension/HDD, Lumpectomy 2D Dimensions LVOT 1.94 cm (M/F) 1.5-2.5 LA Volume 97.90 mL LA Volume Index 54.10 mL/m2 (M/F) 16-34 M-Mode Dimensions RVDd 3.74 cm (0.9-2.6) LA Diam 5.37 cm (1.9-4.0) LVDd 5.38 cm (3.5-5.7) Ao Diam 3.43 cm (2.0-3.7) LVDs 4.00 cm (3.5-5.7) IVSd 2.03 cm (0.6-1.1) PWd 0.88 cm (0.6-1.1) EF (Teich) 50.00% FS 25.70% EDV (Teich) 140.10 mL TAPSE 1.24 (<1.7) ESV (Teich) 70.00 mL LV Diastology E Decel Time 150.00 (160-240 msec) E/A Ratio 5.17 LAT E' 9.60 (<10 cm/sec) LAT A' 3.30 cm/s E/LAT E' Ratio 14.32 (>14) Aortic Valve LVOT Max 178.00 (70-110 cm/s) LVOT VTI 33.96 cm AoV Peak Meo. 204.00 (50-130 cm/s) AI PHT 361.00 ms AO Peak GR. 16.90 mmHg AO Mean GR. 9.60 (<5 mmHg) AO VTI 37.36 (18-25 cm) SERINA (VTI) 2.69 (2.5-4.5 cm2) Mitral Valve MV E Max Moe. 137.00 (40-130 cm/s) MV A Velocity 27.00 (40-130 cm/s) E/A Ratio 5.17 MV Decel. Time 150.00 (160-240 ms) MV PHT 44.00 ms Pulmonary Valve PV Peak Velocity 175.00 (50-150 cm/s) Tricuspid Valve TR P. Velocity 314.00 cm/s RAP Estimate 10.00 mmHg RVSP 49.50 mmHg Left Ventricle Left atrium is moderately enlarged, left ventricle is normal size, mild concentric left ventricular hypertrophy, visually estimated ejection fraction 55% with no regional wall motion abnormality. Diastolic parameters are inconclusive. Right Ventricle Right atrium and right ventricle moderately enlarged with normal contractility. Aortic Valve Aortic valve is minimally thickened and calcified with mild aortic stenosis, mean gradient across valve is 11 mmHg, there is mild aortic insufficiency. Mitral Valve Mitral valve has mitral calcification, there is no mitral stenosis, there is mild mitral regurgitation. Tricuspid Valve Tricuspid grossly normal, there is moderate tricuspid regurgitation, calculated right ventricular systolic pressure is 49 mmHg. Pulmonic Valve Pulmonic valve is poorly visualized. Great Vessels Aortic root is normal size. Pericardium No significant pericardial effusion noted. Conclusion 1. Moderate biatrial alignment, normal left ventricular size, mild concentric left ventricular hypertrophy, visually estimated ejection fraction 55% with no regional wall motion abnormality, diastolic parameters are inconclusive. 2. Moderately enlarged ventricle with normal contractility. 3. Thickened and calcified aortic valve with mild aortic stenosis, there is mild aortic insufficiency. 4. Mild mitral and moderate tricuspid regurgitation, calculated right ventricular systolic pressure is 49 mmHg. 5. No significant pericardial effusion noted, inferior vena cava is dilated without significant inspiratory collapse. Electronically signed by : Carlos Monsivais, 02/28/2021 11:22:08
--- NOTE | 2021-02-27 16:38 | PC.NURSE ---
This RN did ask Dr. Rosales if he wanted a lactic lab or blood cultures and he stated no. ABT has been started per mar, as well as other meds. Daughter is going to bring efferxor. Pt stated she was unsure of what exact meds she takes at home, this nurse spoke with Guera in pharmacy to see if they could get list from external source. VSS at this time. Remains on 3 L NC and continues to have labored breathing, but deny's soa. Skin is pallor. Pt is alert and oriented x 4. Remains on tele. Refused teds. Mx continues. CB in reach.
[2021-02-27 18:36] LABS: Microscopic, Urine URINE MICROSCOPIC (MICROSCOPIC)
[2021-02-27 18:42] LABS: Appearance,Urine CLEAR (Clear); Bilirubin,Urine Negative (Negative); Blood, Urine Negative (Negative); Color,Urine YELLOW (Yellow); Glucose,Urine (UA) Negative (Negative); Ketones,Urine Negative (Negative); Leukocyte Esterase,Urine Negative (Negative); Nitrate,Urine Negative (Negative); Protein,Urine Negative (Negative); Urobilinogen,Urine 0.2 EU/dl (0.2)
[2021-02-27 18:50] LABS: Bacteria,Urine Trace /lpf; Mucus,Urine Trace /lpf
[2021-02-27 18:56] LABS: Alanine Aminotransferase 16 U/L (12-78); Albumin Level 3.5 g/dl (3.5-5.0); Albumin/Globulin Ratio 1.5 (1.1-1.8); Alkaline Phosphatase 167 U/L (38-126); Aspartate Amino Transferase 17 U/L (14-36); Blood Urea Nitrogen 38 mg/dl (7-17); Calcium 8.6 mg/dl (8.4-10.2); Carbon Dioxide 23 mmol/L (22.0-30.0); Chloride 105 mmol/L (98-107); Creatinine Clearance Estimated 19 mL/min (50-200); Estimated Glomerular Filt Rate 15 ml/min (>60); GFR (African American) 19 ML/MIN (>60); Globulin 2.4 g/dL (1.3-3.2); Glucose 138 mg/dl (74-100); Potassium 5.1 mmoL/L (3.5-5.1); Total Protein,Serum 5.9 g/dl (6.3-8.2)
[2021-02-27 18:58] LABS: Anion Gap 14.1 mEq/L (5-15); Sodium 137 mmol/L (136-145)
--- NOTE | 2021-02-27 19:03 | PC.NURSE ---
Notified Dr. Rosales of pt still having labored breathing at approx 30 breaths per min and being tachy. Pt is in afib and been in low 100's HR. Dr. Rosales did make med changes and gave me a x 1 order for 1 mg of bumex IV. Stearns was inserted per Dr. Rosales's request earlier, pt refused earlier this shift, then agreed to place one, it is draining light yellow urine. CB in reach. Pt just finished 2nd unit of blood. Prn tylenol given for temp of 99.2. Pt did desat into the 70's when ambulating to RR. 02 increased and RT called. Pt is now sattng 98% on 40 % venti. BP stable. Will send sputum to lab. RT to draw an abg to determine if BIPAP will be needed this evening at HS.
[2021-02-27 21:14] LABS: ABG Base Excess -4.4 mmol/L (-2.4-2.3); ABG HCO3 21.5 mmhg (22.0-26.0); ABG Oxygen Saturation 95 % (90-100); ABG PCO2 41.6 mmhg (35.0-45.0); ABG PH 7.33 mmol/L (7.35-7.45); ABG PO2 79.8 mmhg (80-100); ABG TCO2 22.8 mmhg (23-27)
[2021-02-27 21:19] LABS: Allen's Test Acceptable; Oxygen 40 %
[2021-02-27 21:20] LABS: Source Left Radial
[2021-02-27 22:02] LABS: Adenovirus,PCR Not Detected (NotDetected); Bordetella Pertussis Not Detected (NotDetected); Chlamydophila Pneumoniae, PCR Not Detected (NotDetected); Coronavirus 229E Not Detected (NotDetected); Coronavirus NL63 Not Detected (NotDetected); Coronavirus OC43 Not Detected (NotDetected); Coronovirus HKU1,PCR Not Detected (NotDetected); Human Metapneumovirus Not Detected (NotDetected); Influenza A, PCR Not Detected (NotDetected); Influenza AH1, 2009 Not Detected (NotDetected); Influenza AH1, PCR Not Detected (NotDetected); Influenza AH3,PCR Not Detected (NotDetected); Influenza B, PCR Not Detected (NotDetected); Mycoplasma Pneumoniae, PCR Not Detected (NotDetected); Parainfluenza 1, PCR Not Detected (NotDetected); Parainfluenza 2, PCR Not Detected (NotDetected); Parainfluenza 3, PCR Not Detected (NotDetected); Parainfluenza 4, PCR Not Detected (NotDetected); Respiratory Syncytial Virus Not Detected (NotDetected); Rhinovirus/Enterovirus Not Detected (NotDetected)
[2021-02-28] VITALS (14 sets, daily range): BP systolic 127–138; BP diastolic 51–75; PULSE 10–118; RESP 20–24; TEMP 36.7–37.3; O2SAT 88–97; BMI 36.3
[2021-02-28 01:20] LABS: Hematocrit 26.1 % (37.0-47.0)
[2021-02-28 01:45] LABS: Hemoglobin 8.5 g/dL (12.2-16.2)
--- NOTE | 2021-02-28 05:11 | PC.NURSE ---
PT. O2 SAT 94-95% ON 40% VENTI; DENIES SOA; RR 24-30. PT. HAS NOT C/O N/V/D OR PAIN THIS SHIFT. PT. HAD A NOSEBLEED, STOPPED AFTER 3 MIN.; APPLIED HUMIDIFICATION TO 02. WET, LOOSE INTERMITTENT PRODUCTIVE COUGH NOTED WITH THICK RUSSO SPUTUM.
[2021-02-28 06:49] LABS: Basophils % 0.2 % (0.1-2.0); Chloride 106 mmol/L (98-107); Eosinophils # 0.1 K/mm3 (0.0-0.4); Eosinophils % 0.8 % (0.1-12.0); Hematocrit 27.7 % (37.0-47.0); Hemoglobin 8.8 g/dL (12.2-16.2); Lymphocytes # 0.4 K/mm3 (0.7-4.5); Lymphocytes % 3.6 % (10-50); MANUAL DIFFERENTIAL MANUAL DIFFERENTIAL (MANUAL DIFF); Mean Corpuscular HGB Conc 31.9 g/dL (31.8-35.4); Mean Corpuscular Hemoglobin 26.6 pg (27.0-31.2); Mean Corpuscular Volume 83.5 fl (81-99); Mean Platelet Volume 7.9 fl (7.4-10.4); Monocytes # 0.8 K/mm3 (0.1-1.0); Monocytes % 7.1 % (1.7-9.3); Neutrophils # 10.2 K/mm3 (1.8-7.8); Neutrophils % 88.3 % (37.0-80.0); Platelet Count 209 K/mm3 (142-424); Red Blood Count 3.32 M/mm3 (4.20-5.40); Red Cell Distribution Width 17.9 % (11.5-17.5); Sodium 140 mmol/L (136-145); White Blood Count 11.5 K/mm3 (4.8-10.8)
[2021-02-28 06:50] LABS: Potassium 4.7 mmoL/L (3.5-5.1)
[2021-02-28 06:52] LABS: Alanine Aminotransferase 13 U/L (12-78); Albumin Level 3.5 g/dl (3.5-5.0); Albumin/Globulin Ratio 1.4 (1.1-1.8); Alkaline Phosphatase 189 U/L (38-126); Anion Gap 15.7 mEq/L (5-15); Aspartate Amino Transferase 16 U/L (14-36); Bilirubin,Total 1.1 mg/dl (0.2-1.3); Blood Urea Nitrogen 40 mg/dl (7-17); Carbon Dioxide 23 mmol/L (22.0-30.0); Creatinine Clearance Estimated 20 mL/min (50-200); Estimated Glomerular Filt Rate 16 ml/min (>60); GFR (African American) 19 ML/MIN (>60); Globulin 2.5 g/dL (1.3-3.2); Glucose 104 mg/dl (74-100)
[2021-02-28 06:53] LABS: Magnesium 1.8 mg/dl (1.6-2.3)
[2021-02-28 07:11] LABS: Lymphocytes % 5 % (10-50); Monocytes % 6 % (2-9); Neutrophils % 89 % (42-76); Platelet Estimate Normal; RBC Morphology Normal; Total Cells Counted 100
--- NOTE | 2021-02-28 07:51 | HMH.ACPN2 ---
Internal Medicine - PN: Subj *Date: 02/28/21 *Time: 08:22 Interval history: Ms. Bassett is alert and pleasant this morning. Continues to be short of breath though less tachypneic on interview today. Stable on 40% FiO2 Via Ventimask. Able to take mask off to eat breakfast. Remains afebrile. Cough still somewhat wet. Denies any nausea, vomiting, diarrhea. Good diuresis over the past 24 hours with -1.5 L overnight. Heart rate still elevated in the low 100s but respiratory rate improved. Only complaint this morning is of a nosebleed overnight, bleeding has resolved at this time Exam Vital signs and Labs for Last 24 Hours: Temp Pulse Resp BP Pulse Ox 98.4 F 98 H 20 132/65 94 L 02/28/21 05:00 02/28/21 05:00 02/28/21 05:00 02/28/21 05:00 02/28/21 05:00 Laboratory Results - last 24 hr 02/27/21 05:30: Blood Type Confirm O Positive 02/27/21 06:55: Blood Type O Positive, Antibody Screen Negative, Crossmatch (AHG) See Detail 02/27/21 07:15: SARS-CoV-2 (PCR) Not detected, Influenza A Untype (PCR) Not detected, Influenza Type B (PCR) Not detected 02/27/21 09:19: Troponin I 0.02 02/27/21 12:12: Troponin I 0.02 02/27/21 12:12: Hgb 6.2 L*, Hct 21.0 L* 02/27/21 18:15: Urine Color Yellow, Urine Appearance Clear, Urine pH 5.0, Ur Specific [place] 1.010, Urine Protein Negative, Urine Glucose (UA) Negative, Urine Ketones Negative, Urine Blood Negative, Urine Nitrate Negative, Urine Bilirubin Negative, Urine Urobilinogen 0.2, Ur Leukocyte Esterase Negative, Ur Squamous Epith Cells 3-5, Urine Bacteria Trace, Urine Mucus Trace 02/27/21 18:37: Sodium 137, Potassium 5.1, Chloride 105, Carbon Dioxide 23, Anion Gap 14.1, BUN 38 H, Creatinine 2.90 H, Estimated Creat Clear 19, Estimated GFR 15 L*, Est GFR ( Amer) 19 L*, Glucose 138 H D, Calcium 8.6, Total Bilirubin 1.0, AST 17, ALT 16, Alkaline Phosphatase 167 H, Total Protein 5.9 L, Albumin 3.5, Globulin 2.4, Albumin/Globulin Ratio 1.5 02/27/21 21:09: Specimen Source Left radial, O2 % 40, ABG pH 7.33 L, ABG pCO2 41.6, ABG pO2 79.8 L, ABG HCO3 21.5 L, ABG Total CO2 22.8 L, ABG O2 Saturation 95, ABG Base Excess -4.4 L, Constantin Test Acceptable 02/27/21 21:55: Chlamy pneumoniae PCR Not detected, Adenovirus (PCR) Not detected, B. pertussis DNA (PCR) Not detected, Coronavirus OC43 (PCR) Not detected, Coronavirus HKU1 (PCR) Not detected, Coronavirus 229E (PCR) Not detected, Coronavirus NL63 (PCR) Not detected, Human Metapneumovir PCR Not detected, Influenza A (H1) PCR Not detected, Influ A (H1N1/09) PCR Not detected, Influenza A (H3) PCR Not detected, Influenza Type A (PCR) Not detected, Influenza Type B (PCR) Not detected, M. pneumoniae (PCR) Not detected, Parainfluenza 1 (PCR) Not detected, Parainfluenza 2 (PCR) Not detected, Parainfluenza 3 (PCR) Not detected, Parainfluenza 4 (PCR) Not detected, RSV (PCR) Not detected, Entero/Rhino (PCR) Not detected 02/28/21 01:10: Hgb 8.5 L D, Hct 26.1 L 02/28/21 06:17: WBC 11.5 H, RBC 3.32 L D, Hgb 8.8 L, Hct 27.7 L, MCV 83.5, MCH 26.6 L, MCHC 31.9, RDW 17.9 H, Plt Count 209, MPV 7.9, Neut % (Auto) 88.3 H, Lymph % (Auto) 3.6 L, [place] % (Auto) 7.1, Eos % (Auto) 0.8, Baso % (Auto) 0.2, Neut # (Auto) 10.2 H, Lymph # (Auto) 0.4 L, [place] # (Auto) 0.8, Eos # (Auto) 0.1, Baso # (Auto) 0.0, Total Counted 100, Neutrophils % (Manual) 89 H, Lymphocytes % (Manual) 5 L, Monocytes % (Manual) 6, Platelet Estimate Normal, RBC Morphology Normal 02/28/21 06:17: Sodium 140, Potassium 4.7, Chloride 106, Carbon Dioxide 23, Anion Gap 15.7 H, BUN 40 H, Creatinine 2.80 H, Estimated Creat Clear 20, Estimated GFR 16 L*, Est GFR ( Amer) 19 L*, Glucose 104 H D, Calcium 9.0, Magnesium 1.8, Total Bilirubin 1.1, AST 16, ALT 13, Alkaline Phosphatase 189 H, Total Protein 6.0 L, Albumin 3.5, Globulin 2.5, Albumin/Globulin Ratio 1.4 I & O for Last 24 hours: Intake & Output 02/25/21 02/26/21 02/27/21 02/28/21 23:59 23:59 23:59 23:59 Intake Total 730 / 730 Output Total 400 / 400 1500 / 1500 Balance
[2021-02-28 10:12] LABS: Procalcitonin 1.03 ng/mL (0.0-2.0)
--- NOTE | 2021-02-28 18:24 | PC.NURSE ---
PT IS RESTING IN BED. VERY TALKATIVE AND PLEASANT. NO COMPLAINTS OF DISCOMFORT. O2 SATURATION HAS MAINTAINED 88-92% ON 4 L NC T/O THE SHIFT. LUNG SOUNDS HAVE SCATTERED RHONCHI. ABDOMEN SOFT/NON TENDER WITH ACTIVE BOWEL SOUNDS. 1+ PITTING EDEMA NOTED TO BLE. EATING AND DRINKING WELL. PT REFUSED TO SIT UP IN THE CHAIR THIS SHIFT BUT DID SIT UP ON THE SIDE OF THE BED DURING MEALS. WILL CONTINUE TO MONITOR.
[2021-02-28 18:26] LABS: Basophils % 0.2 % (0.1-2.0); Eosinophils # 0.1 K/mm3 (0.0-0.4); Eosinophils % 1.2 % (0.1-12.0); Lymphocytes # 0.5 K/mm3 (0.7-4.5); Lymphocytes % 4.2 % (10-50); Mean Corpuscular HGB Conc 32.1 g/dL (31.8-35.4); Mean Corpuscular Hemoglobin 26.6 pg (27.0-31.2); Mean Corpuscular Volume 82.8 fl (81-99); Mean Platelet Volume 7.7 fl (7.4-10.4); Monocytes # 0.8 K/mm3 (0.1-1.0); Monocytes % 6.6 % (1.7-9.3); Neutrophils % 87.8 % (37.0-80.0); Platelet Count 224 K/mm3 (142-424); Red Blood Count 3.38 M/mm3 (4.20-5.40); Red Cell Distribution Width 17.6 % (11.5-17.5); White Blood Count 11.4 K/mm3 (4.8-10.8)
[2021-02-28 18:30] LABS: MANUAL DIFFERENTIAL MANUAL DIFFERENTIAL (MANUAL DIFF)
[2021-02-28 18:36] LABS: Alanine Aminotransferase 14 U/L (12-78); Albumin Level 3.4 g/dl (3.5-5.0); Albumin/Globulin Ratio 1.4 (1.1-1.8); Alkaline Phosphatase 167 U/L (38-126); Anion Gap 14.6 mEq/L (5-15); Aspartate Amino Transferase 15 U/L (14-36); Bilirubin,Total 0.8 mg/dl (0.2-1.3); Blood Urea Nitrogen 43 mg/dl (7-17); Calcium 8.8 mg/dl (8.4-10.2); Carbon Dioxide 25 mmol/L (22.0-30.0); Chloride 102 mmol/L (98-107); Creatinine Clearance Estimated 19 mL/min (50-200); Estimated Glomerular Filt Rate 16 ml/min (>60); GFR (African American) 19 ML/MIN (>60); Globulin 2.5 g/dL (1.3-3.2); Glucose 153 mg/dl (74-100); Magnesium 1.8 mg/dl (1.6-2.3); Potassium 4.6 mmoL/L (3.5-5.1); Sodium 137 mmol/L (136-145); Total Protein,Serum 5.9 g/dl (6.3-8.2)
[2021-02-28 19:05] LABS: Monocytes % 11 % (2-9); Neutrophils % 88 % (42-76); Total Cells Counted 100
[2021-02-28 19:06] LABS: Hypochromasia 2+; Microcytosis 1+; Platelet Estimate Normal; Schistocytes 1+; Spherocytes 2+
[2021-03-01] VITALS (13 sets, daily range): BP systolic 94–126; BP diastolic 60–74; PULSE 90–120; RESP 16–20; TEMP 36.6–36.9; O2SAT 77–93; BMI 35.4
--- NOTE | 2021-03-01 00:11 | PC.NURSE ---
RA SATS WERE 89% RETURNED PT BACK TO 3.5L
--- NOTE | 2021-03-01 05:40 | PC.NURSE ---
shift summary pt is alert and oriented X4. lung sounds have rhonchi with sats maintained 90% or above on 4L via NC. pt has a intermittent non productive cough. castañeda in place with clear yellow in color urine. pt denies any pain, nausea, vomiting, or diarrhea. no acute changes, will continue to monitor.
[2021-03-01 06:15] LABS: Basophils % 0.3 % (0.1-2.0); Eosinophils # 0.2 K/mm3 (0.0-0.4); Eosinophils % 2.3 % (0.1-12.0); Hematocrit 28.2 % (37.0-47.0); Hemoglobin 9.2 g/dL (12.2-16.2); Lymphocytes # 0.6 K/mm3 (0.7-4.5); Mean Corpuscular HGB Conc 32.8 g/dL (31.8-35.4); Mean Corpuscular Volume 82.4 fl (81-99); Mean Platelet Volume 8.1 fl (7.4-10.4); Monocytes # 0.8 K/mm3 (0.1-1.0); Monocytes % 7.7 % (1.7-9.3); Neutrophils # 8.3 K/mm3 (1.8-7.8); Neutrophils % 83.6 % (37.0-80.0); Platelet Count 225 K/mm3 (142-424); Red Blood Count 3.42 M/mm3 (4.20-5.40); Red Cell Distribution Width 17.5 % (11.5-17.5); White Blood Count 9.9 K/mm3 (4.8-10.8)
[2021-03-01 07:05] LABS: Chloride 106 mmol/L (98-107); Potassium 4.3 mmoL/L (3.5-5.1); Sodium 139 mmol/L (136-145)
[2021-03-01 07:07] LABS: Alanine Aminotransferase 11 U/L (12-78); Aspartate Amino Transferase 13 U/L (14-36); Blood Urea Nitrogen 48 mg/dl (7-17); Creatinine Clearance Estimated 21 mL/min (50-200); Estimated Glomerular Filt Rate 18 ml/min (>60); GFR (African American) 22 ML/MIN (>60)
[2021-03-01 07:08] LABS: Albumin/Globulin Ratio 1.4 (1.1-1.8); Alkaline Phosphatase 181 U/L (38-126); Anion Gap 13.3 mEq/L (5-15); Bilirubin,Total 0.6 mg/dl (0.2-1.3); Calcium 8.7 mg/dl (8.4-10.2); Carbon Dioxide 24 mmol/L (22.0-30.0); Globulin 2.2 g/dL (1.3-3.2); Glucose 102 mg/dl (74-100); Magnesium 1.9 mg/dl (1.6-2.3); Total Protein,Serum 5.2 g/dl (6.3-8.2)
--- NOTE | 2021-03-01 07:55 | CT_ITS ---
PROCEDURE INFORMATION: Exam: CT Chest Without Contrast; Diagnostic Exam date and time: 03/01/2021 7:55 AM Age: 85 years old Clinical indication: Cough; Additional info: Assess pneumonia vs chf TECHNIQUE: Imaging protocol: Diagnostic computed tomography of the chest without contrast. Radiation optimization: All CT scans at this facility use at least one of these dose optimization techniques: automated exposure control; mA and/or kV adjustment per patient size (includes targeted exams where dose is matched to clinical indication); or iterative reconstruction. COMPARISON: CR XR CHEST PORTABLE 02/27/2021 6:38 AM FINDINGS: Lungs: Consolidation in the right lower lobe. Patchy bilateral opacities throughout the lung [place]. Findings may reflect multifocal pneumonia. . Emphysematous changes in the lung [place]. Scattered bilateral pulmonary nodules may represent part of the pneumonia versus neoplastic process. Largest nodule 11 mm.. Pleural spaces: Small bilateral pleural effusions. . Heart: Cardiomegaly; Coronary artery calcifications may indicate coronary artery disease. There is calcification of the aortic valve annulus. There is calcification of the mitral valve annulus. Mediastinal space: Moderate hiatal hernia Aorta: Unremarkable. No aortic aneurysm. Lymph nodes: Unremarkable. No enlarged lymph nodes. Kidneys and ureters: 7.7 cm simple cyst in the left kidney. . No follow-up imaging recommended . Bones/joints: Unremarkable. No acute fracture. Soft tissues: Unremarkable. IMPRESSION: 1. Small bilateral pleural effusions. . 2. Consolidation in the right lower lobe. Patchy bilateral opacities throughout the lung [place]. Findings may reflect multifocal pneumonia. . 3. Scattered bilateral pulmonary nodules may represent part of the pneumonia versus neoplastic process. Largest nodule 11 mm.. For patients at low risk (minimal or absent history of smoking and of other known risk factors), recommend CT Chest at 3-6 months, then consider CT Chest at 18-24 months. For patients at high risk (history of smoking or of other known risk factors), recommend CT Chest at 3-6 months, then CT Chest at 18-24 months. (Reference: Ron) References: Ron Bejarano et al. Guidelines for Management of Incidental Pulmonary Nodules Detected on CT Images: From the Fleischner Society 2017. Radiology. 2017;284(1):228-243. COMMENTS: Consistent with the [place] [employer]'s Incidental Findings Committee white paper (J Am Andrade Radiol 2018): Any incidental renal lesion less than 1 cm or classified as too small to characterize, or any incidental cystic renal lesion characterized as simple-appearing, is likely benign. No follow-up imaging is recommended for these lesions per consensus recommendations based on imaging criteria.
--- NOTE | 2021-03-01 07:55 | HMH.ACPN2 ---
Internal Medicine - PN: Subj *Date: 03/01/21 *Time: 08:16 Interval history: Discharge remained afebrile overnight. Continues to have tachycardia with her A. fib. Tolerating carvedilol well however. Blood pressure well controlled. This morning states she feels somewhat better. Cough improving. Stable oxygen requirement down to 3-4L nasal cannula this morning. Tolerating fair p.o. intake. Denies nausea, diarrhea, chest pain, confusion. Labs reviewed. Exam Vital signs and Labs for Last 24 Hours: Temp Pulse Resp BP Pulse Ox 98.5 F 120 H 16 126/74 90 L 03/01/21 07:29 03/01/21 07:29 03/01/21 07:29 03/01/21 07:29 03/01/21 07:29 Laboratory Results - last 24 hr 02/28/21 06:17: Procalcitonin 1.03 02/28/21 18:10: WBC 11.4 H, RBC 3.38 L, Hgb 9.0 L, Hct 28.0 L, MCV 82.8, MCH 26.6 L, MCHC 32.1, RDW 17.6 H, Plt Count 224, MPV 7.7, Neut % (Auto) 87.8 H, Lymph % (Auto) 4.2 L, [place] % (Auto) 6.6, Eos % (Auto) 1.2, Baso % (Auto) 0.2, Neut # (Auto) 10.0 H, Lymph # (Auto) 0.5 L, [place] # (Auto) 0.8, Eos # (Auto) 0.1, Baso # (Auto) 0.0, Total Counted 100, Neutrophils % (Manual) 88 H, Atypical Lymphs % 1.0, Monocytes % (Manual) 11 H, Platelet Estimate Normal, Hypochromasia 2+, Microcytosis 1+, Spherocytes 2+, Schistocytes 1+ 02/28/21 18:10: Sodium 137, Potassium 4.6, Chloride 102, Carbon Dioxide 25, Anion Gap 14.6, BUN 43 H, Creatinine 2.80 H, Estimated Creat Clear 19, Estimated GFR 16 L*, Est GFR ( Amer) 19 L*, Glucose 153 H D, Calcium 8.8, Magnesium 1.8, Total Bilirubin 0.8, AST 15, ALT 14, Alkaline Phosphatase 167 H, Total Protein 5.9 L, Albumin 3.4 L, Globulin 2.5, Albumin/Globulin Ratio 1.4 03/01/21 06:06: WBC 9.9, RBC 3.42 L, Hgb 9.2 L, Hct 28.2 L, MCV 82.4, MCH 27.0, MCHC 32.8, RDW 17.5, Plt Count 225, MPV 8.1, Neut % (Auto) 83.6 H, Lymph % (Auto) 6.0 L, [place] % (Auto) 7.7, Eos % (Auto) 2.3, Baso % (Auto) 0.3, Neut # (Auto) 8.3 H, Lymph # (Auto) 0.6 L, [place] # (Auto) 0.8, Eos # (Auto) 0.2, Baso # (Auto) 0.0 03/01/21 06:06: Sodium 139, Potassium 4.3, Chloride 106, Carbon Dioxide 24, Anion Gap 13.3, BUN 48 H, Creatinine 2.50 H, Estimated Creat Clear 21, Estimated GFR 18 L*, Est GFR ( Amer) 22 L, Glucose 102 H D, Calcium 8.7, Magnesium 1.9, Total Bilirubin 0.6, AST 13 L, ALT 11 L, Alkaline Phosphatase 181 H, Total Protein 5.2 L, Albumin 3.0 L D, Globulin 2.2, Albumin/Globulin Ratio 1.4 I & O for Last 24 hours: Intake & Output 02/26/21 02/27/21 02/28/21 03/01/21 23:59 23:59 23:59 23:59 Intake Total 730 / 730 960 / 1080 480 / 480 Output Total 400 / 400 2700 / 2700 700 / 700 Balance 330 / 330 -1740 / -1620 -220 / -220 Weight 84.113 kg 84 kg 81.783 kg Microbiology Reports for the Last 24 Hours: Microbiology 02/27/21 19:00 Sputum - Expectorated Sputum Gram Stain - Final 02/27/21 19:00 Sputum - Expectorated Sputum Sputum Culture - Preliminary Narrative: - Constitutional minimal distress, obese, chronically ill appearing - *Routine HEENT Exam Head: Present: normocephalic Eye: Present: EOMI, PERRL ENT: Present: mucous membranes moist - *Routine Neck Exam Present: supple. Absent: lymphadenopathy - *Routine Respiratory Exam Present: Interval improvement in respiratory distress, rhonchi, intervally improved crackles (bibasilar), diminished air movement - *Routine Cardiovascular Exam Present: tachycardia, irregularly irregular - *Routine Abdominal Exam Present: soft, normoactive bowel sounds, tenderness (minimal lower abdominal ) - *Routine Extremities Exam Present: edema (1+ to knees). Absent: cyanosis, clubbing - *Routine Skin Exam Present: warm. Absent: rash - *Routine Neurological Exam Present: alert, oriented X3 Assessment and Plan (1) Community acquired pneumonia Status: Acute Qualifiers: Laterality: right Lung location: lower lobe of lung Qualified Code(s): J18.9 - Pneumonia, unspecified organism Category: Medical Code(s): J18.9 - Pneumonia, unspecified organism
--- NOTE | 2021-03-01 16:01 | PC.NURSE ---
PT IS SITTING UP IN THE CHAIR. NO COMPLAINTS OF DISCOMFORT. ALERT AND ORIENTED X4. PT STATES SHE IS FEELING BETTER AND IS HOPING TO GET TO GO HOME SOON. LUNG SOUNDS DIMINISHED WITH SCATTERED RHONCHI/WHEEZES. 1+ EDEMA NOTED TO BLE. EATING AND DRINKING WELL. O2 SATURATION HAS MAINTAINED 90-94% ON 3 L NC. [place] ALEXANDER WILL CONTINUE TO MONITOR.
[2021-03-02] VITALS (14 sets, daily range): BP systolic 115–134; BP diastolic 56–81; PULSE 90–118; RESP 17–22; TEMP 36.6–36.8; O2SAT 91–94; BMI 36.7
--- NOTE | 2021-03-02 03:49 | PC.NURSE ---
shift summary pt is alert and oriented X4. lung sounds have rhonchi with sats maintained 90% or above on 3L via NC. pts coughing has decreased allowing the pt to rest more comfortably. pt has voided per bathroom this shift urine is clear and yellow in color. pt denies any pain, nausea, vomiting, or diarrhea. no acute changes, will continue to monitor.
[2021-03-02 07:05] LABS: Basophils % 0.2 % (0.1-2.0); Eosinophils # 0.2 K/mm3 (0.0-0.4); Eosinophils % 3.4 % (0.1-12.0); Hematocrit 28.7 % (37.0-47.0); Hemoglobin 9.1 g/dL (12.2-16.2); Lymphocytes # 0.5 K/mm3 (0.7-4.5); Mean Corpuscular HGB Conc 31.7 g/dL (31.8-35.4); Mean Corpuscular Hemoglobin 26.7 pg (27.0-31.2); Mean Corpuscular Volume 84.1 fl (81-99); Mean Platelet Volume 7.8 fl (7.4-10.4); Monocytes # 0.5 K/mm3 (0.1-1.0); Monocytes % 7.4 % (1.7-9.3); Neutrophils # 5.8 K/mm3 (1.8-7.8); Neutrophils % 81.9 % (37.0-80.0); Platelet Count 239 K/mm3 (142-424); Red Blood Count 3.42 M/mm3 (4.20-5.40); Red Cell Distribution Width 17.5 % (11.5-17.5); White Blood Count 7.1 K/mm3 (4.8-10.8)
[2021-03-02 07:15] LABS: Chloride 105 mmol/L (98-107); Potassium 4.5 mmoL/L (3.5-5.1); Sodium 139 mmol/L (136-145)
[2021-03-02 07:18] LABS: Alanine Aminotransferase 12 U/L (12-78); Albumin Level 3.4 g/dl (3.5-5.0); Albumin/Globulin Ratio 1.3 (1.1-1.8); Alkaline Phosphatase 188 U/L (38-126); Anion Gap 13.5 mEq/L (5-15); Aspartate Amino Transferase 17 U/L (14-36); Bilirubin,Total 0.5 mg/dl (0.2-1.3); Blood Urea Nitrogen 48 mg/dl (7-17); Calcium 9.2 mg/dl (8.4-10.2); Carbon Dioxide 25 mmol/L (22.0-30.0); Creatinine Clearance Estimated 25 mL/min (50-200); Estimated Glomerular Filt Rate 21 ml/min (>60); GFR (African American) 26 ML/MIN (>60); Globulin 2.6 g/dL (1.3-3.2); Glucose 108 mg/dl (74-100)
--- NOTE | 2021-03-02 09:14 | HMH.DCSUM ---
General - General Admission date:: 02/27/21 Discharge date: 03/02/21 HPI HPI: Ms. Bassett is a pleasant 85-year-old female with history of A. fib, CHF, CKD 4, and chronic anticoagulation who presented to the ER due to worsening shortness of breath for the past week. States she has had a mildly productive cough. Has had no geovanni fever but has had chilling over the past week. Decreased appetite as food just did not taste right . Denies any nausea or vomiting. No diarrhea, melena, hematochezia. Came to the ER because of feeling more fatigued after waking up today. On initial presentation noted to be in A. fib with RVR, have a new oxygen requirement, and labs concerning for anemia, acute on chronic kidney injury, and CHF exacerbation. Was given a dose of beta-sandra for A. fib with RVR with improvement in her heart rate. Was admitted for blood transfusion and further work-up. After assessing the patient since getting to the floor, she continues to be mildly tachypneic. Complains of being very weak. No improvement in her hemoglobin after 1 unit transfused. Continues to be short of breath and dyspneic on interview. Objective Vital signs: Temp Pulse Resp BP Pulse Ox 97.9 F 118 H 17 126/67 91 L 03/02/21 07:23 03/02/21 07:23 03/02/21 07:23 03/02/21 07:23 03/02/21 07:23 Narrative: - Constitutional Stable on 3L NC, NAD, obese, chronically ill appearing - *Routine HEENT Exam Head: Present: normocephalic Eye: Present: EOMI, PERRL ENT: Present: mucous membranes moist - *Routine Neck Exam Present: supple. Absent: lymphadenopathy - *Routine Respiratory Exam Present: Interval improvement in respiratory distress, No significant rhonchi, minimal basilar crackles, diminished air movement - *Routine Cardiovascular Exam Present: tachycardia, irregularly irregular - *Routine Abdominal Exam Present: soft, normoactive bowel sounds, tenderness (minimal lower abdominal ) - *Routine Extremities Exam Present: edema (1+ to knees). Absent: cyanosis, clubbing - *Routine Skin Exam Present: warm. Absent: rash - *Routine Neurological Exam Present: alert, oriented X3 Results Labs on day of discharge: Labs from last 24 hours 03/02/21 03/02/21 06:56 06:56 WBC 7.1 D RBC 3.42 L Hgb 9.1 L Hct 28.7 L MCV 84.1 MCH 26.7 L MCHC 31.7 L RDW 17.5 Plt Count 239 MPV 7.8 Neut % (Auto) 81.9 H Lymph % (Auto) 7.0 L [place] % (Auto) 7.4 Eos % (Auto) 3.4 Baso % (Auto) 0.2 Neut # (Auto) 5.8 Lymph # (Auto) 0.5 L [place] # (Auto) 0.5 Eos # (Auto) 0.2 Baso # (Auto) 0.0 Sodium 139 Potassium 4.5 Chloride 105 Carbon Dioxide 25 Anion Gap 13.5 BUN 48 H Creatinine 2.20 H Estimated Creat Clear 25 Estimated GFR 21 L Est GFR ( Amer) 26 L Glucose 108 H Calcium 9.2 Magnesium 2.0 Total Bilirubin 0.5 AST 17 D ALT 12 Alkaline Phosphatase 188 H Total Protein 6.0 L Albumin 3.4 L D Globulin 2.6 Albumin/Globulin Ratio 1.3 Preliminary micro results at discharge 02/27/21 19:00 Sputum Culture - Preliminary Sputum - Expectorated Sputum DS: Diagnosis - Discharge Diagnosis (1) Community acquired pneumonia Status: Acute (2) Acute on chronic kidney failure Status: Resolved (3) Anemia requiring transfusions Status: Resolved (4) Acute hypoxemic respiratory failure Status: Acute (5) Acute on chronic diastolic CHF (congestive heart failure) Status: Resolved (6) SIRS (systemic inflammatory response syndrome) Status: Resolved (7) Acquired hypothyroidism Status: Chronic (8) Atrial fibrillation Status: Chronic Discharge Plan - Patient Discharge Instructions ACTIVITY: Continue current activity DIET: continue same diet Patient Instructions: Anemia, DI for Blood Transfusion - Follow up Plan Follow up with: Jeremy Pride MD [Primary Care Provider] - Disposition: Home, S
--- NOTE | 2021-03-02 11:08 | HMH.ACPN2 ---
Internal Medicine - PN: Subj *Date: 03/02/21 *Time: 11:08 Interval history: Ms. Bassett did well overnight. Heart rate stable in the high 90s to low 100 range. Remains afebrile. Oxygen stable on 3 L nasal cannula. Blood pressure well controlled. Tolerating fair p.o. intake. Responding well to oral Bumex. No complaints this morning on exam and overall feels fairly well however she also stated I feel like I could today . Ambulating independently to the bathroom. Has been up out of bed. Denies nausea, diarrhea. Reports improvement in cough. Exam Vital signs and Labs for Last 24 Hours: Temp Pulse Resp BP Pulse Ox 98.2 F 93 H 20 115/56 L 91 L 03/02/21 10:55 03/02/21 10:55 03/02/21 10:55 03/02/21 10:55 03/02/21 10:55 Laboratory Results - last 24 hr 03/02/21 06:56: WBC 7.1 D, RBC 3.42 L, Hgb 9.1 L, Hct 28.7 L, MCV 84.1, MCH 26.7 L, MCHC 31.7 L, RDW 17.5, Plt Count 239, MPV 7.8, Neut % (Auto) 81.9 H, Lymph % (Auto) 7.0 L, [place] % (Auto) 7.4, Eos % (Auto) 3.4, Baso % (Auto) 0.2, Neut # (Auto) 5.8, Lymph # (Auto) 0.5 L, [place] # (Auto) 0.5, Eos # (Auto) 0.2, Baso # (Auto) 0.0 03/02/21 06:56: Sodium 139, Potassium 4.5, Chloride 105, Carbon Dioxide 25, Anion Gap 13.5, BUN 48 H, Creatinine 2.20 H, Estimated Creat Clear 25, Estimated GFR 21 L, Est GFR ( Amer) 26 L, Glucose 108 H, Calcium 9.2, Magnesium 2.0, Total Bilirubin 0.5, AST 17 D, ALT 12, Alkaline Phosphatase 188 H, Total Protein 6.0 L, Albumin 3.4 L D, Globulin 2.6, Albumin/Globulin Ratio 1.3 I & O for Last 24 hours: Intake & Output 06/2402/28/21 03/01/21 03/02/21 23:59 23:59 23:59 23:59 Intake Total 730 / 730 960 / 1080 960 / 1080 480 / 480 Output Total 400 / 400 2700 / 2700 1250 / 1251 Balance 330 / 330 -1740 / -1620 -290 / -171 479 / 479 Weight 84.113 kg 84 kg 81.783 kg 84.822 kg Microbiology Reports for the Last 24 Hours: Microbiology 02/27/21 19:00 Sputum - Expectorated Sputum Gram Stain - Final 02/27/21 19:00 Sputum - Expectorated Sputum Sputum Culture - Preliminary Narrative: - Constitutional Alert and oriented, no acute distress on 3 L nasal cannula O2, obese, chronically ill appearing - *Routine HEENT Exam Head: Present: normocephalic Eye: Present: EOMI, PERRL ENT: Present: mucous membranes moist - *Routine Neck Exam Present: supple. Absent: lymphadenopathy - *Routine Respiratory Exam Present: Interval improvement in respiratory distress, resolution of rhonchi, minimal but improved bibasilar crackles. diminished air movement - *Routine Cardiovascular Exam Present: tachycardia, irregularly irregular - *Routine Abdominal Exam Present: soft, normoactive bowel sounds, tenderness (minimal lower abdominal ) - *Routine Extremities Exam Present: edema (1+ to knees). Absent: cyanosis, clubbing - *Routine Skin Exam Present: warm. Absent: rash - *Routine Neurological Exam Present: alert, oriented X3 Assessment and Plan (1) Community acquired pneumonia Status: Acute Qualifiers: Laterality: right Lung location: lower lobe of lung Qualified Code(s): J18.9 - Pneumonia, unspecified organism Category: Medical Code(s): J18.9 - Pneumonia, unspecified organism (2) Acute on chronic kidney failure Status: Resolved Category: Medical Code(s): N17.9 - Acute kidney failure, unspecified; N18.9 - Chronic kidney disease, unspecified (3) Anemia requiring transfusions Status: Resolved Category: Medical Code(s): D64.9 - Anemia, unspecified (4) Acute hypoxemic respiratory failure Status: Acute Category: Medical Code(s): J96.01 - Acute respiratory failure with hypoxia (5) Acute on chronic diastolic CHF (congestive heart failure) Status: Resolved Category: Medical Code(s): I50.33 - Acute on chronic diastolic (congestive) heart failure (6) SIRS (systemic inflammatory response syndrome) Status: Resolved Category: Medical Code(s): R65.10 - Systemic inflammatory res
--- NOTE | 2021-03-02 11:26 | P.PN_ITS ---
Internal Medicine - PN: Subj *Date: 03/02/21 *Time: 11:26 Exam Vital signs and Labs for Last 24 Hours: Temp Pulse Resp BP Pulse Ox 98.2 F 93 H 20 115/56 L 91 L 03/02/21 10:55 03/02/21 10:55 03/02/21 10:55 03/02/21 10:55 03/02/21 10:55 Laboratory Results - last 24 hr 03/02/21 06:56: WBC 7.1 D, RBC 3.42 L, Hgb 9.1 L, Hct 28.7 L, MCV 84.1, MCH 26.7 L, MCHC 31.7 L, RDW 17.5, Plt Count 239, MPV 7.8, Neut % (Auto) 81.9 H, Lymph % (Auto) 7.0 L, [place] % (Auto) 7.4, Eos % (Auto) 3.4, Baso % (Auto) 0.2, Neut # (Auto) 5.8, Lymph # (Auto) 0.5 L, [place] # (Auto) 0.5, Eos # (Auto) 0.2, Baso # (Auto) 0.0 03/02/21 06:56: Sodium 139, Potassium 4.5, Chloride 105, Carbon Dioxide 25, Anion Gap 13.5, BUN 48 H, Creatinine 2.20 H, Estimated Creat Clear 25, Estimated GFR 21 L, Est GFR ( Amer) 26 L, Glucose 108 H, Calcium 9.2, Magnesium 2.0, Total Bilirubin 0.5, AST 17 D, ALT 12, Alkaline Phosphatase 188 H, Total Protein 6.0 L, Albumin 3.4 L D, Globulin 2.6, Albumin/Globulin Ratio 1.3 I & O for Last 24 hours: Intake & Output 02/27/21 02/28/21 03/01/21 03/02/21 23:59 23:59 23:59 23:59 Intake Total 730 / 730 960 / 1080 960 / 1080 480 / 480 Output Total 400 / 400 2700 / 2700 1250 / 1251 Balance 330 / 330 -1740 / -1620 -290 / -171 479 / 479 Weight 84.113 kg 84 kg 81.783 kg 84.822 kg Microbiology Reports for the Last 24 Hours: Microbiology 02/27/21 19:00 Sputum - Expectorated Sputum Gram Stain - Final 02/27/21 19:00 Sputum - Expectorated Sputum Sputum Culture - Preliminary Assessment and Plan (1) Community acquired pneumonia Status: Acute Qualifiers: Laterality: right Lung location: lower lobe of lung Qualified Code(s): J18.9 - Pneumonia, unspecified organism Category: Medical Code(s): J18.9 - Pneumonia, unspecified organism (2) Acute on chronic kidney failure Status: Resolved Category: Medical Code(s): N17.9 - Acute kidney failure, unspecified; N18.9 - Chronic kidney disease, unspecified (3) Anemia requiring transfusions Status: Resolved Category: Medical Code(s): D64.9 - Anemia, unspecified (4) Acute hypoxemic respiratory failure Status: Acute Category: Medical Code(s): J96.01 - Acute respiratory failure with hypoxia (5) Acute on chronic diastolic CHF (congestive heart failure) Status: Resolved Category: Medical Code(s): I50.33 - Acute on chronic diastolic (congestive) heart failure (6) SIRS (systemic inflammatory response syndrome) Status: Resolved Category: Medical Code(s): R65.10 - Systemic inflammatory response syndrome (SIRS) of non-infectious origin without acute organ dysfunction (7) Acquired hypothyroidism Status: Chronic Category: Medical Code(s): E03.9 - Hypothyroidism, unspecified (8) Atrial fibrillation Status: Chronic Qualifiers: Category: Medical Code(s): I48.91 - Unspecified atrial fibrillation The patient's infection will respond to the chosen ABx?: Yes Is the patient receiving the right drug, dose, and route?: Yes Could a more targeted ABx be ordered?: No (WBC DECREASED, AFEBRILE, MD VIOLETTA BISHOP)
--- NOTE | 2021-03-02 15:19 | PC.NURSE ---
PT IS SITTING UP ON THE SOB. NO COMPLAINTS OF DISCOMFORT. AFIB ON THE MONITOR WITH HR 85-110. LUNG SOUNDS DIMINISHED. ABDOMEN SOFT/NON TENDER WITH ACTIVE BOWEL SOUNDS. EATING AND DRINKING WELL. PT HAS BEEN AMBULATING TO THE BATHROOM WITH 1 ASSIST. ROOM AIR SATURATION 82%. O2 SATURATION 92-94% ON 3 L NC. WILL CONTINUE TO MONITOR.
[2021-03-03] VITALS (8 sets, daily range): BP systolic 108–118; BP diastolic 57–70; PULSE 98–110; RESP 18–20; TEMP 36.6–36.8; O2SAT 84–94
--- NOTE | 2021-03-03 00:02 | PC.NURSE ---
RA SATS WERE 86 RETURNED PT BACK TO 3L NC
[2021-03-03 06:13] LABS: Chloride 107 mmol/L (98-107)
[2021-03-03 06:14] LABS: Potassium 4.6 mmoL/L (3.5-5.1); Sodium 142 mmol/L (136-145)
[2021-03-03 06:16] LABS: Alanine Aminotransferase 13 U/L (12-78); Aspartate Amino Transferase 24 U/L (14-36); Blood Urea Nitrogen 53 mg/dl (7-17); Creatinine Clearance Estimated 25 mL/min (50-200); Estimated Glomerular Filt Rate 21 ml/min (>60); GFR (African American) 26 ML/MIN (>60)
[2021-03-03 06:17] LABS: Albumin Level 3.1 g/dl (3.5-5.0); Albumin/Globulin Ratio 1.2 (1.1-1.8); Alkaline Phosphatase 171 U/L (38-126); Anion Gap 10.6 mEq/L (5-15); Bilirubin,Total 0.3 mg/dl (0.2-1.3); Carbon Dioxide 29 mmol/L (22.0-30.0); Globulin 2.5 g/dL (1.3-3.2); Glucose 99 mg/dl (74-100); Magnesium 2.1 mg/dl (1.6-2.3); Total Protein,Serum 5.6 g/dl (6.3-8.2)
[2021-03-03 06:18] LABS: Basophils % 0.4 % (0.1-2.0); Eosinophils # 0.2 K/mm3 (0.0-0.4); Eosinophils % 4.5 % (0.1-12.0); Hematocrit 27.9 % (37.0-47.0); Hemoglobin 8.7 g/dL (12.2-16.2); Lymphocytes # 0.6 K/mm3 (0.7-4.5); Lymphocytes % 10.4 % (10-50); Mean Corpuscular HGB Conc 31.2 g/dL (31.8-35.4); Mean Corpuscular Hemoglobin 26.2 pg (27.0-31.2); Mean Platelet Volume 7.7 fl (7.4-10.4); Monocytes # 0.5 K/mm3 (0.1-1.0); Monocytes % 9.5 % (1.7-9.3); Neutrophils # 4.1 K/mm3 (1.8-7.8); Neutrophils % 75.2 % (37.0-80.0); Platelet Count 250 K/mm3 (142-424); Red Blood Count 3.33 M/mm3 (4.20-5.40); Red Cell Distribution Width 17.5 % (11.5-17.5); White Blood Count 5.4 K/mm3 (4.8-10.8)
--- NOTE | 2021-03-03 07:28 | SW/DCPLANNER ---
Addendum entered by Marivel Boo 03/03/21 08:55: PATIENT IS DISCHARGING HOME TODAY WITH HOME 02...PATIENT HAS CHOSEN [facility] TO PROVIDE THIS SERVICE.. A PORTABLE TANK WILL BE DELIVERED TO THE HOSPITAL AND PATIENT STATES HER DAUGHTER WILL BE COMING TO GET HER.. NO OTHER HOME CARE SERVICES AT THIS TIME... Original Note: PATIENT REMAINS IN THE ACUTE HOS[facility], SHE IS IMPROVING AND IT APPEARS SHE MAY BE ABLE TO DISCHARGE SOON.. PATIENT RESIDES AT HOME AND IF ANY DISCHARGE PLANNING IS NECESSARY IT WILL BE SET UP AT TIME OF DISPOSITION...
--- NOTE | 2021-03-03 08:07 | HMH.DCSUM ---
General - General Admission date:: 02/27/21 Discharge date: 03/03/21 HPI HPI: Ms. Bassett is a pleasant 85-year-old female with history of A. fib, CHF, CKD 4, and chronic anticoagulation who presented to the ER due to worsening shortness of breath for the past week. States she has had a mildly productive cough. Has had no geovanni fever but has had chilling over the past week. Decreased appetite as food just did not taste right . Denies any nausea or vomiting. No diarrhea, melena, hematochezia. Came to the ER because of feeling more fatigued after waking up today. On initial presentation noted to be in A. fib with RVR, have a new oxygen requirement, and labs concerning for anemia, acute on chronic kidney injury, and CHF exacerbation. Was given a dose of beta-sandra for A. fib with RVR with improvement in her heart rate. Was admitted for blood transfusion and further work-up. After assessing the patient since getting to the floor, she continues to be mildly tachypneic. Complains of being very weak. No improvement in her hemoglobin after 1 unit transfused. Continues to be short of breath and dyspneic on interview. Hospital Course Hospital Course: Patient was found to have evidence of pneumonia, started on azithromycin and ceftriaxone, did well with this. Restarted on Eliquis because of chronic/recurrent A. fib and tolerated this well. Started on beta-blockers and titrated up to carvedilol 50 mg twice daily, this was also tolerated well. Bumex was also restarted, and this was continued. Over the last 24 hours she has been stable, ambulating well, tolerating oxygen well. Plan okay to discharge home with Bumex, carvedilol finishing up antibiotics, close follow-up in our office and follow cultures as an outpatient. Objective Vital signs: Temp Pulse Resp BP Pulse Ox 98.2 F 98 H 18 112/62 93 L 03/03/21 07:46 03/03/21 07:46 03/03/21 07:46 03/03/21 07:46 03/03/21 07:46 no acute distress - *Routine HEENT Exam Head: Present: normocephalic Eye: Present: EOMI, PERRL ENT: Present: mucous membranes moist - *Routine Neck Exam Present: supple - *Routine Respiratory Exam Present: CTA bilaterally, rales, rhonchi - *Routine Cardiovascular Exam Present: irregular rhythm - *Routine Abdominal Exam Present: soft, normoactive bowel sounds. Absent: tenderness - *Routine Extremities Exam Absent: cyanosis, clubbing, edema - *Routine Skin Exam Present: warm. Absent: rash - Detailed Eye Exam Eyelids: Bilateral normal inspection Results Labs on day of discharge: Labs from last 24 hours 03/03/21 03/03/21 04:51 04:51 WBC 5.4 RBC 3.33 L Hgb 8.7 L Hct 27.9 L MCV 84.0 MCH 26.2 L MCHC 31.2 L RDW 17.5 Plt Count 250 MPV 7.7 Neut % (Auto) 75.2 Lymph % (Auto) 10.4 [place] % (Auto) 9.5 H Eos % (Auto) 4.5 Baso % (Auto) 0.4 Neut # (Auto) 4.1 Lymph # (Auto) 0.6 L [place] # (Auto) 0.5 Eos # (Auto) 0.2 Baso # (Auto) 0.0 Sodium 142 Potassium 4.6 Chloride 107 Carbon Dioxide 29 Anion Gap 10.6 BUN 53 H Creatinine 2.20 H Estimated Creat Clear 25 Estimated GFR 21 L Est GFR ( Amer) 26 L Glucose 99 Calcium 9.0 Magnesium 2.1 Total Bilirubin 0.3 AST 24 D ALT 13 Alkaline Phosphatase 171 H Total Protein 5.6 L Albumin 3.1 L Globulin 2.5 Albumin/Globulin Ratio 1.2 Preliminary micro results at discharge 02/27/21 19:00 Sputum Culture - Preliminary Sputum - Expectorated Sputum DS: Diagnosis - Discharge Diagnosis (1) Community acquired pneumonia Status: Acute (2) Acute on chronic kidney failure Status: Resolved (3) Anemia requiring transfusions Status: Resolved (4) Acute hypoxemic respiratory failure Status: Acute (5) Acute on chronic diastolic CHF (congestive heart failure) Status: Resolved (6) SIRS (systemic inflammatory response syndrome) Status: Resolved (
[2021-03-03 09:07] LABS: Procalcitonin 0.475 ng/mL (0.0-2.0)
== END 2021-03-03 14:47 | disposition home or self-care (01) | DRG 811 ==
LOC: ER 07:25 → 2ND 09:20
PROVIDERS: Admitting Provider Internal Medicine Adolescent Medicine; Emergency Provider Emergency Medicine; PCP Internal Medicine Adolescent Medicine; Visit Provider Internal Medicine Adolescent Medicine
DX: D50.0 Iron deficiency anemia secondary to blood loss (chronic) (principal); J18.9 Pneumonia, unspecified organism; I50.33 Acute on chronic diastolic (congestive) heart failure; J96.01 Acute respiratory failure with hypoxia; I13.0 Hypertensive heart and chronic kidney disease with heart failure and stage 1 through stage 4 chronic kidney disease, or unspecified chronic kidney disease; N17.9 Acute kidney failure, unspecified; N18.4 Chronic kidney disease, stage 4 (severe); I48.20 Chronic atrial fibrillation, unspecified; J44.0 Chronic obstructive pulmonary disease with (acute) lower respiratory infection; Z79.01 Long term (current) use of anticoagulants; E03.9 Hypothyroidism, unspecified; Z88.0 Allergy status to penicillin; Z88.2 Allergy status to sulfonamides; Z91.048 Other nonmedicinal substance allergy status; I25.10 Atherosclerotic heart disease of native coronary artery without angina pectoris; E78.5 Hyperlipidemia, unspecified; Z96.641 Presence of right artificial hip joint; Z87.891 Personal history of nicotine dependence
CPT/HCPCS: 36415; 71045; 71250; 74176; 80048; 80053; 80076; 81001; 82803; 83735; 83880; 84145; 84484; 85007; 85014; 85018; 85025; 85610; 86850; 87070; 87205; 87486; 87581; 87633; 87798; 93005; 93306; 94640; 94760; 94761; 99203; G0463; J0456; P9016; U0003

== ENCOUNTER 2021-03-21 08:03 | Observation (INO) | payer MEDICARE, MEDICAID, SELFPAY ==
[2021-03-21] VITALS (21 sets, daily range): BP systolic 126–165; BP diastolic 62–139; PULSE 75–122; RESP 18–37; TEMP 36.9–38.1; O2SAT 93–100; BMI 29.8
--- NOTE | 2021-03-21 07:17 | ECG_ITS ---
APPROVED REPORT Exam: Resting ECG HR:112 bpm ECG Measurements Heart Rate 112 AXES QRSd 82 QRS 2 QT 296 T 48 QTc 404 Conclusion Atrial fibrillation with rapid ventricular response Septal infarct, age undetermined Abnormal ECG Electronically signed by : Jeremy Pride, 03/21/2021 21:35:20
--- NOTE | 2021-03-21 07:22 | XR_ITS ---
PROCEDURE: XR CHEST PORTABLE CLINICAL HISTORY: fever COMPARISON: CR XR CHEST PORTABLE from 11/26/2020 CR XR CHEST PORTABLE from 11/30/2020 CR XR CHEST PORTABLE from 02/27/[address] CHEST WO CON from 03/01/2021 FINDINGS: Cardiomegaly with mild pulmonary venous congestion. No lobar consolidation or collapse. Clips are present in the left axilla. No acute bony abnormalities. IMPRESSION: Mild CHF. Dictated by: Constantin Peterson MD 03/21/2021 07:46 Constantin Peterson MD in [place] 03/21/2021 07:46
--- NOTE | 2021-03-21 07:25 | PC.NURSE ---
rad notified of xray orders on pt, spoke with hanna
[2021-03-21 07:56] LABS: Coronavirus 19, PCR Not Detected (NotDetected); Influenza A, PCR Not Detected (NotDetected); Influenza B, PCR Not Detected (NotDetected)
[2021-03-21 07:59] LABS: Basophils % 0.5 % (0.1-2.0); Eosinophils # 0.1 K/mm3 (0.0-0.4); Eosinophils % 1.5 % (0.1-12.0); Hematocrit 30.6 % (37.0-47.0); Lymphocytes # 0.8 K/mm3 (0.7-4.5); Lymphocytes % 9.1 % (10-50); Mean Corpuscular HGB Conc 32.6 g/dL (31.8-35.4); Mean Corpuscular Hemoglobin 27.1 pg (27.0-31.2); Mean Corpuscular Volume 83.3 fl (81-99); Mean Platelet Volume 7.9 fl (7.4-10.4); Monocytes # 0.8 K/mm3 (0.1-1.0); Neutrophils # 6.6 K/mm3 (1.8-7.8); Neutrophils % 79.8 % (37.0-80.0); Platelet Count 193 K/mm3 (142-424); Red Blood Count 3.67 M/mm3 (4.20-5.40); Red Cell Distribution Width 20.2 % (11.5-17.5); White Blood Count 8.3 K/mm3 (4.8-10.8)
--- NOTE | 2021-03-21 08:04 | HMH.EDGENADL ---
ED Disposition Clinical Impression: Diverticulitis, Rapid atrial fibrillation Congestive heart failure Qualifiers: Heart failure type: unspecified Heart failure chronicity: acute on chronic Qualified Code(s): I50.9 - Heart failure, unspecified Disposition: Admitted As Inpatient Condition on Discharge: [facility] - Critical Care Critical Care Time: No Attestation: On , the high probability of a clinically significant, sudden or life threatening deterioration of the following system(s) required my full and direct attention, intervention and personal management. The time I documented below is in addition to time spent performing reported procedures but includes the following listed in this critical care notation. Medical Decision Making - Dirk Inquiry Pt receiving controlled substance: No Vital Signs: 03/21/21 07:16 03/21/21 07:30 03/21/21 08:00 Temperature 100.6 F H Temperature Source Oral Pulse Rate 121 H 116 H Pulse Rate [Left Radial] 112 H Respiratory Rate 37 H 24 22 Blood Pressure 145/89 H 157/90 H Blood Pressure [Right Arm] 151/97 H Blood Pressure Mean 111 112 Blood Pressure Mean [Right Arm] 115 Blood Pressure Source Blood Pressure Source [Right Arm] Automatic Cuff Blood Pressure Position Blood Pressure Position [Right Arm] Sitting 02 Sat by Pulse Oximetry 99 98 98 Oxygen Delivery Method Nasal Cannula Oxygen Flow Rate (LPM) 2 03/21/21 08:26 03/21/21 08:30 03/21/21 09:00 Temperature Temperature Source Pulse Rate 113 H 107 H 121 H Pulse Rate [Left Radial] Respiratory Rate 20 22 20 Blood Pressure 165/93 H 157/139 H 157/77 H Blood Pressure [Right Arm] Blood Pressure Mean 144 144 103 Blood Pressure Mean [Right Arm] Blood Pressure Source Blood Pressure Source [Right Arm] Blood Pressure Position Blood Pressure Position [Right Arm] 02 Sat by Pulse Oximetry 98 99 98 Oxygen Delivery Method Oxygen Flow Rate (LPM) 03/21/21 10:03 03/21/21 10:06 03/21/21 10:08 Temperature Temperature Source Pulse Rate 101 H 111 H 117 H Pulse Rate [Left Radial] Respiratory Rate 29 H 21 21 Blood Pressure 141/76 H 137/81 145/82 H Blood Pressure [Right Arm] Blood Pressure Mean 97 87 99 Blood Pressure Mean [Right Arm] Blood Pressure Source Blood Pressure Source [Right Arm] Blood Pressure Position Blood Pressure Position [Right Arm] 02 Sat by Pulse Oximetry 97 95 96 Oxygen Delivery Method Oxygen Flow Rate (LPM) 03/21/21 10:31 03/21/21 11:00 03/21/21 11:30 Temperature Temperature Source Pulse Rate 106 H 122 H 120 H Pulse Rate [Left Radial] Respiratory Rate 22 24 20 Blood Pressure 145/85 H 147/78 H 131/70 Blood Pressure [Right Arm] Blood Pressure Mean 94 97 101 Blood Pressure Mean [Right Arm] Blood Pressure Source Blood Pressure Source [Right Arm] Blood Pressure Position Blood Pressure Position [Right Arm] 02 Sat by Pulse Oximetry 95 97 98 Oxygen Delivery Method Nasal Cannula Oxygen Flow Rate (LPM) 03/21/21 12:00 03/21/21 12:30 03/21/21 12:55 Temperature 99.0 F Temperature Source Oral Pulse Rate 113 H 110 H Pulse Rate [Left Radial] Respiratory Rate 20 20 Blood Pressure 128/73 128/73 Blood Pressure [Right Arm] Blood Pressure Mean 95 Blood Pressure Mean [Right Arm] Blood Pressure Source Automatic Cuff Blood Pressure Source [Right Arm] Blood Pressure Position Supine Blood Pressure Position [Right Arm] 02 Sat by Pulse Oximetry 96 Oxygen Delivery Method Room Air Nasal Cannula Room Air Oxygen Flow Rate (LPM) - Lab Data Lab Results 03/21/21 07:19: WBC 8.3, RBC 3.67 L, Hgb 10.0 L, Hct 30.6 L, MCV 83.3, MCH 27.1, MCHC 32.6, RDW 20.2 H, Plt Count 193, MPV 7.9, Neut % (Auto) 79.8, Lymph % (Auto) 9.1 L, [place] % (Auto) 9.0, Eos % (Auto) 1.5, Baso % (Auto) 0.5, Neut # (Auto) 6.6, Lymph # (Auto) 0.8, [place] # (Auto) 0.8, Eos # (Auto) 0.1, Baso # (Auto) 0.0 0
[2021-03-21 08:09] LABS: Lactic Acid 0.7 mmol/L (0.7-2.1)
[2021-03-21 08:10] LABS: Alanine Aminotransferase 9 U/L (12-78); Albumin Level 3.5 g/dl (3.5-5.0); Albumin/Globulin Ratio 1.5 (1.1-1.8); Alkaline Phosphatase 146 U/L (38-126); Anion Gap 11.7 mEq/L (5-15); Aspartate Amino Transferase 18 U/L (14-36); Bilirubin,Total 0.8 mg/dl (0.2-1.3); Blood Urea Nitrogen 30 mg/dl (7-17); Calcium 8.7 mg/dl (8.4-10.2); Carbon Dioxide 27 mmol/L (22.0-30.0); Chloride 106 mmol/L (98-107); Creatinine Clearance Estimated 27 mL/min (50-200); Estimated Glomerular Filt Rate 24 ml/min (>60); GFR (African American) 29 ML/MIN (>60); Globulin 2.4 g/dL (1.3-3.2); Glucose 96 mg/dl (74-100); Lipase 218 U/L (23-300); Potassium 4.7 mmoL/L (3.5-5.1); Sodium 140 mmol/L (136-145); Total Protein,Serum 5.9 g/dl (6.3-8.2)
[2021-03-21 08:36] LABS: Microscopic, Urine URINE MICROSCOPIC (MICROSCOPIC)
[2021-03-21 08:38] LABS: Appearance,Urine CLEAR (Clear); Bilirubin,Urine Negative (Negative); Blood, Urine TRACE-I (Negative); Color,Urine YELLOW (Yellow); Glucose,Urine (UA) Negative (Negative); Ketones,Urine Negative (Negative); Leukocyte Esterase,Urine Negative (Negative); Nitrate,Urine Negative (Negative); PH,Urine 6.5 (5.0-8.5); Protein,Urine Negative (Negative); Specific Gravity, Urine 1.015 (1.005-1.030); Urobilinogen,Urine 0.2 EU/dl (0.2)
[2021-03-21 08:50] LABS: RBC,Urine Occasional #/hpf (0-3)
--- NOTE | 2021-03-21 09:18 | CT_ITS ---
PROCEDURE: CT ABDOMEN PELVIS WO CON CLINICAL INDICATION: abdominal pain Lower abdominal pain COMPARISON: CT ABDPELW/O CT ABD PELVIS W/O CONTRAST from 08/10/[address] ABDOMEN PELVIS WO CON from 02/27/2021 TECHNIQUE: Axial images obtained with sagittal and coronal reformats. All CT scans at the facility use one or more dose reduction, viz: automated exposure control, ma/kV adjustment per patient size (including targeted exams where dose is matched to indication, i.e. head), or iterative reconstruction technique. FINDINGS: LOWER THORAX: There is a medium-sized hiatal hernia. There is cardiomegaly. ABDOMEN & PELVIS: Prior cholecystectomy. The liver, spleen, adrenal glands, and pancreas have an unremarkable appearance. There is a 7 cm left renal cyst. Rounded calcific density is present in the hilum of the left kidney consistent with a renal artery aneurysm measuring 6 mm. There is a 2.7 cm exophytic nodule projecting off the right kidney anteriorly and may represent a renal cyst. No renal or ureteral calculi. No hydronephrosis. There is a small umbilical hernia containing fat. No evidence of appendicitis. There are multiple colonic diverticula. There is stranding of the pericolic fat in the mid aspect of the descending colon consistent with acute diverticulitis. There is no evidence abscess or perforation. There are some focal mildly prominent small bowel loops with air-fluid levels in the mid abdominal region possibly due to ileus from the diverticulitis. There is a small amount of cul-de-sac fluid. There is some hyperdensity noted in the rectal region which is nonspecific. Acute blood could cause this finding or could be related to ingested medication. There has been a prior total right hip prosthesis placed. The superior acetabular screw extends posterior to the cortex of the ileum into the soft tissues posteriorly by approximately 15 mm. IMPRESSION: 1. Acute diverticulitis of the mid aspect of the descending colon. No evidence of abscess or perforation. 2. Mildly dilated small bowel loops in the lower abdomen with air-fluid levels which could be related to ileus. 3. Other nonacute findings as described above. Dictated by: Constantin Peterson MD 03/21/2021 10:15 Constantin Peterson MD in [facility] 03/21/2021 10:15
--- NOTE | 2021-03-21 10:41 | PC.NURSE ---
Dr Bobby conley
--- NOTE | 2021-03-21 11:03 | PC.NURSE ---
CL[place]ON BLACKBURN speaking with Dr. Rosales
--- NOTE | 2021-03-21 11:14 | PC.NURSE ---
Dr Rivera spoke with dr Rosales
--- NOTE | 2021-03-21 11:25 | PC.NURSE ---
bed assignment requested, room 212 all staff notified
--- NOTE | 2021-03-21 12:03 | PC.NURSE ---
waiting media/instructional designer back from [facility] on second to give report
--- NOTE | 2021-03-21 12:38 | PC.NURSE ---
report called to aaronrn at this time on second floor
--- NOTE | 2021-03-21 13:08 | SW/DCPLANNER ---
PATIENT ADMITTED TO [facility] WITH RAPID AFIB AND DIVERTICULITIS, SHE IS CURRENTLY IN OBSERVATION... HER LAST ADMISSION SHE WAS SENT HOME WITH HOME 02...THERE WERE NO OTHER HOME CARE ORDERS OTHER THAN HER HOME 02 THE LAST ADMISSION....WILL BE AVAILABLE TO SET UP ANY OTHER SERVICES SHE MAY NEED AT TIME OF DISPOSITION...
--- NOTE | 2021-03-21 14:31 | P.CONPHA_ITS ---
[facility] Pharmacy VTE Monitoring - Patient Demographics Admission date: 03/21/21 Report Date: 03/21/21 Time: 14:31 Allergies/Adverse Reactions: Patient Allergies iodine [IODINE] Allergy (Severe, Verified 05/02/20 11:32) S-ANAPHYLAXIS Sulfa (Sulfonamide Antibiotics) [SULFA (SULFONAMIDE ANTIBIOTICS)] Allergy (Severe, Verified 05/02/20 11:32) I-HIVES Penicillins [PENICILLINS] Allergy (Intermediate, Verified 05/02/20 11:32) I-RASH codeine [CODEINE] Allergy (Unknown, Verified 05/02/20 11:32) NA-HALLUCINATIONS hydrogen peroxide Allergy (Unknown, Verified 05/02/20 11:32) Height: 1.68 m Weight: 84.425 kg Patient Problems: Current Active Problems Congestive heart disease (Acute) Diverticulitis (Acute) Rapid atrial fibrillation (Acute) - VTE Risk Labs: VTE Related Lab Results Hgb 10.0 g/dL (12.2-16.2) L 03/21/21 07:19 Hct 30.6 % (37.0-47.0) L 03/21/21 07:19 Plt Count 193 K/mm3 (142-424) 03/21/21 07:19 BUN 30 mg/dl (7-17) H 03/21/21 07:19 Creatinine 2.00 mg/dl (0.52-1.04) H 03/21/21 07:19 Estimated Creat Clear 27 mL/min (50-200) 03/21/21 07:19 Was VTE Risk Assessment Performed: Yes VTE Risk Level: Low Risk - Prophylaxis VTE Prophylaxis Ordered?: Yes Types of VTE Prophylaxis: Pharmacological Location of Applied Device: Bilateral Lower Extremeties Pharmacologic Type: Other (ELIQUIS)
--- NOTE | 2021-03-21 17:56 | HMH.HP ---
*Admission Date: 03/21/21 *Chief complaint: abdominal pain *History of present illness: Ms. Bassett is a pleasant 85-year-old female with history of A. fib, CHF, CKD 4, and chronic anticoagulation who presented to the ER due to increased urination overnight with onset of abdominal pain in her lower abdomen. Pain did not go away after urinating and gradually led to her having diarrhea and nausea. Has had diarrhea for the past 3 to 4 days. Denies geovanni fever but frankly feverish in the ER on arrival. No geovanni vomiting. Denies chest pain or shortness of breath. Of note was admitted last month for productive cough and worsening CHF exacerbation. Assessment of labs in the ER shows anemia stable, kidney function stable, heart rate however above goal and patient actively in A. fib with RVR. Reports missing her morning meds. Tolerated dose of IV metoprolol in the ER with improvement in rate but still above 100. Admitted to medicine for further management of A. fib with RVR, and diverticulitis noted on CT scan of abdomen. After assessing the patient since getting to the floor, she continues to be mildly tachycardic but improving after getting her morning carvedilol dose in the ER. Abdominal pain still prominent. Started on antibiotics and IV fluids. [facility] History I have reviewed the patient's past medical history: Yes Medical History: Reports:: Anxiety, Arrhythmia, Atrial Fibrillation, Congestive Heart Failure, Coronary Artery Disease, Depression, Heart Murmur, Hyperlipidemia, Hypertension, Renal Disease Denies:: Cancer, Diabetes Mellitus Type 1, Diabetes Mellitus Type 2, MRSA *Have you ever received a pneumonia vaccine?: Yes *Have you received a flu vaccine this season?: No Other Medical History: Reports: Anemia, Arthritis, Hormone Therapy, Hypothyroidism, Radiation Therapy Laterality Cases: Left: Breast Biopsy, Lumpectomy, Right: Total Hip Replacement Other Surgeries: Yes: Colonoscopy, Other Amputation: No Fractures: No - *Social History Smoking Status: Former smoker Tobacco Type: cigarettes Alcohol Intake: never Alcohol Intake Frequency:: holidays/special occasions only Substance Use Type: denies use *Occupational Status:: retired Housing: apartment Household Members: family *Travel in the last 8 weeks: None - Psychiatric History Pschychiatric History:: Reports:: Anxiety, Depression Family Hx:: Anemia, Cancer, Diabetes, Hyperlipidemia, Hypertension, Kidney Disease, Stroke, Thyroid Disorder GIS INSTRUCTOR history: No GIS INSTRUCTOR history Review of Systems - Review of Systems Review of systems:: pertinent systems reviewed and negative unless documented below (14 point review of systems performed, pertinent positives and negatives as per HPI) Meds Home Medications Medication Instructions Recorded Confirmed Type apixaban 2.5 mg tablet 2.5 mg PO BID 11/03/18 03/21/21 History Acetaminophen [Acetaminophen 325mg 650 mg PO Q4HP PRN tab 03/01/20 03/21/21 Rx tab] Levothyroxine Sodium 25 mcg PO DAILY 03/01/20 03/21/21 History [Levothyroxine 25mcg (0.025mg) Tab] Omeprazole [Omeprazole 20mg 20 mg PO DAILY 12/01/20 03/21/21 History Capsule] Venlafaxine HCl 37.5 mg PO DAILY 12/01/20 03/21/21 History Bumetanide [Bumex 1mg tablet] 0.5 mg PO DAILY 03/21/21 03/21/21 History Isosorbide Mononitrate [Imdur 30mg 30 mg PO DAILY 03/21/21 03/21/21 History ER tablet] carvediloL [Coreg 25mg Tablet] 50 mg PO BID 03/21/21 03/21/21 History Allergies Allergy/AdvReac Type Severity Reaction Status Date / Time iodine [IODINE] Allergy Severe S-ANAPHYLAX Verified 05/02/20 11:32 IS Sulfa (Sulfonamide Allergy Severe I-HIVES Verified 05/02/20 11:32 Antibiotics) [SULFA (SULFONAMIDE ANTIBIOTICS)] Penicillins [PENICILLINS] Allergy Intermediate I-RASH Verified 05/02/20 11:32 codeine [CODEINE] Allergy Unknown NA-HALLUCIN Verified 05/02/20 11:32 ATIONS hydrogen peroxide Allergy Unknown Verified 05/02/20 11:32 Exam V
--- NOTE | 2021-03-21 19:28 | PC.NURSE ---
RA SATS 91%. PUT PT BACK ON AND DECREASE O2 TO 2L N/C
--- NOTE | 2021-03-21 20:06 | PC.NURSE ---
Pt alert and oriented. No c/o. Pt is unsure of meds taken exactly at home. Have expressed need for home meds to be brought in. CB in reach.
[2021-03-22] VITALS: BP 136/76; PULSE 120; PULSE 60; RESP 18; TEMP 36.9; O2SAT 93
--- NOTE | 2021-03-22 03:35 | PC.NURSE ---
Patient has been pleasant this shift. She is alert and oriented x4. She has had no complaints this shift. Bowel sounds are all active, she has some tenderness in her LLQ when palpated. She does have some non-pitting edema to her lower extremities. Vital signs are stable. Will continue to monitor. Call light within reach, bed in lowest position.
[2021-03-22 03:54] VITALS: BP 109/56; PULSE 93; RESP 21; TEMP 37.1; O2SAT 96
[2021-03-22 04:00] VITALS: PULSE 100
[2021-03-22 05:00] VITALS: BMI 29.9
[2021-03-22 07:04] LABS: Basophils % 0.5 % (0.1-2.0); Eosinophils # 0.1 K/mm3 (0.0-0.4); Hematocrit 28.4 % (37.0-47.0); Lymphocytes # 0.9 K/mm3 (0.7-4.5); Lymphocytes % 13.8 % (10-50); Mean Corpuscular HGB Conc 31.2 g/dL (31.8-35.4); Mean Corpuscular Hemoglobin 26.4 pg (27.0-31.2); Mean Corpuscular Volume 84.8 fl (81-99); Monocytes # 0.4 K/mm3 (0.1-1.0); Neutrophils # 4.8 K/mm3 (1.8-7.8); Neutrophils % 76.7 % (37.0-80.0); Platelet Count 162 K/mm3 (142-424); Red Blood Count 3.35 M/mm3 (4.20-5.40); Red Cell Distribution Width 20.4 % (11.5-17.5); White Blood Count 6.3 K/mm3 (4.8-10.8)
[2021-03-22 07:37] VITALS: BP 122/57; PULSE 87; RESP 17; TEMP 36.8; O2SAT 99
[2021-03-22 08:00] VITALS: PULSE 90
--- NOTE | 2021-03-22 08:33 | HMH.DCSUM ---
General - General Admission date:: 03/21/21 Discharge date: 03/22/21 HPI HPI: Ms. Bassett is a pleasant 85-year-old female with history of A. fib, CHF, CKD 4, and chronic anticoagulation who presented to the ER due to increased urination overnight with onset of abdominal pain in her lower abdomen. Pain did not go away after urinating and gradually led to her having diarrhea and nausea. Has had diarrhea for the past 3 to 4 days. Denies geovanni fever but frankly feverish in the ER on arrival. No geovanni vomiting. Denies chest pain or shortness of breath. Of note was admitted last month for productive cough and worsening CHF exacerbation. Assessment of labs in the ER shows anemia stable, kidney function stable, heart rate however above goal and patient actively in A. fib with RVR. Reports missing her morning meds. Tolerated dose of IV metoprolol in the ER with improvement in rate but still above 100. Admitted to medicine for further management of A. fib with RVR, and diverticulitis noted on CT scan of abdomen. After assessing the patient since getting to the floor, she continues to be mildly tachycardic but improving after getting her morning carvedilol dose in the ER. Abdominal pain still prominent. Started on antibiotics and IV fluids. Hospital Course Hospital Course: 85-year-old female with A. fib, CHF, COPD, CKD. Admitted for A. fib with RVR and diverticulitis. Initiated on IV antibiotics as well as adjustments made to her rate control regimen. Patient tolerated meds well during hospitalization. Good p.o. intake. Stable oxygen requirement. We will plan to continue levofloxacin and metronidazole for total of 10 days to treat diverticulitis. Adjustments to her A. fib regimen include decreasing her carvedilol to 25 mg twice daily from 50 mg twice daily and initiating low-dose metoprolol to achieve better rate control. Responded well to this regimen in the hospital with heart rate at goal less than 90. We will have close follow-up in the coming weeks to assess response to therapy and resolution of diverticulitis. No complaints on day of discharge. Denies significant abdominal pain, shortness of breath, fever, nausea or vomiting. Examined on day of discharge, medically stable for discharge home Objective Vital signs: Temp Pulse Resp BP Pulse Ox 98.3 F 87 17 122/57 L 99 03/22/21 07:37 03/22/21 07:37 03/22/21 07:37 03/22/21 07:37 03/22/21 07:37 Narrative: - Constitutional No acute distress, Sitting up at bedside on interview, obese - *Routine HEENT Exam Head: Present: normocephalic Eye: Present: EOMI, PERRL ENT: Present: mucous membranes moist - *Routine Neck Exam Present: supple. Absent: lymphadenopathy - *Routine Respiratory Exam Present: CTA bilaterally - *Routine Cardiovascular Exam Present: tachycardia, irregularly irregular - *Routine Abdominal Exam Present: soft, normoactive bowel sounds, minimal tenderness left upper quadrant intervally improved - *Routine Extremities Exam Present: edema (1+ to knees). Absent: cyanosis, clubbing - *Routine Skin Exam Present: warm. Absent: rash - *Routine Neurological Exam Present: alert, oriented X3 Results Labs on day of discharge: Labs from last 24 hours 03/22/21 03/21/21 06:53 08:20 WBC 6.3 RBC 3.35 L Hct 28.4 L MCV 84.8 MCH 26.4 L MCHC 31.2 L RDW 20.4 H Plt Count 162 MPV 8.0 Neut % (Auto) 76.7 Lymph % (Auto) 13.8 [place] % (Auto) 7.0 Eos % (Auto) 2.0 Baso % (Auto) 0.5 Neut # (Auto) 4.8 Lymph # (Auto) 0.9 [place] # (Auto) 0.4 Eos # (Auto) 0.1 Baso # (Auto) 0.0 Urine Color Yellow Urine Appearance Clear Urine pH 6.5 Ur Specific [place] 1.015 Urine Protein Negative Urine Glucose (UA) Negative Urine Ketones Negative Urine Blood Trace-i Urine Nitrate Negative Urine Bilirubin Negative Urine Urobilinogen 0.2 Ur Leukocyte Esterase Negative Uri
[2021-03-22 09:23] LABS: Blood Urea Nitrogen 30 mg/dl (7-17); Calcium 8.5 mg/dl (8.4-10.2); Carbon Dioxide 25 mmol/L (22.0-30.0); Chloride 108 mmol/L (98-107); Creatinine Clearance Estimated 27 mL/min (50-200); Estimated Glomerular Filt Rate 24 ml/min (>60); GFR (African American) 29 ML/MIN (>60); Glucose 90 mg/dl (74-100); Magnesium 1.9 mg/dl (1.6-2.3); Sodium 139 mmol/L (136-145)
[2021-03-22 12:00] VITALS: PULSE 90
== END 2021-03-22 16:45 | disposition home or self-care (01) ==
LOC: ER 08:31 → 2ND 11:41
PROVIDERS: Emergency Medicine; Internal Medicine Adolescent Medicine; Admitting Provider Internal Medicine Adolescent Medicine; Emergency Provider Emergency Medicine; Visit Provider Internal Medicine Adolescent Medicine
DX: I48.91 Unspecified atrial fibrillation (principal); I50.9 Heart failure, unspecified; N18.4 Chronic kidney disease, stage 4 (severe); J44.9 Chronic obstructive pulmonary disease, unspecified; K57.92 Diverticulitis of intestine, part unspecified, without perforation or abscess without bleeding; Z79.890 Hormone replacement therapy; Z79.899 Other long term (current) drug therapy; Z88.0 Allergy status to penicillin; E03.9 Hypothyroidism, unspecified; Z88.2 Allergy status to sulfonamides; Z88.8 Allergy status to other drugs, medicaments and biological substances; Z79.01 Long term (current) use of anticoagulants; Z20.822 Contact with and (suspected) exposure to COVID-19; I13.0 Hypertensive heart and chronic kidney disease with heart failure and stage 1 through stage 4 chronic kidney disease, or unspecified chronic kidney disease
CPT/HCPCS: 36415; 71045; 74176; 80048; 80053; 81001; 83605; 83690; 83735; 85025; 87040; 93005; 94760; 96365; 96367; 96375; 99285; G0378; J1956; U0003

== ENCOUNTER 2021-04-17 15:27 | Emergency (ER) | payer MEDICARE, MEDICAID, SELFPAY ==
[2021-04-17 15:29] VITALS: BP 144/80; PULSE 105; RESP 22; TEMP 36.5; O2SAT 93; BMI 30.3
--- NOTE | 2021-04-17 15:52 | HMH.EDABDPAI ---
ED Disposition Clinical Impression: Dyspepsia Abdominal pain Qualifiers: Abdominal location: epigastric Qualified Code(s): R10.13 - Epigastric pain Disposition: Home, Self-Care Condition on Discharge: Good Instructions: DI for Acute Abdominal Pain, DI for Dyspepsia Referrals: Calderon Rosales MD [Primary Care Provider] - 3 days - Critical Care Critical Care Time: No Attestation: On 04/17/21, the high probability of a clinically significant, sudden or life threatening deterioration of the following system(s) required my full and direct attention, intervention and personal management. The time I documented below is in addition to time spent performing reported procedures but includes the following listed in this critical care notation. Medical Decision Making - Medical Records Medical records reviewed: Yes: I reviewed the patient's medical records. - Dirk Inquiry Pt receiving controlled substance: No Vital Signs: 04/17/21 15:29 Temperature 97.7 F Temperature Source Oral Pulse Rate [Right Radial] 105 H Respiratory Rate 22 Blood Pressure [Right Arm] 144/80 H Blood Pressure Mean [Right Arm] 101 Blood Pressure Source [Right Arm] Automatic Cuff Blood Pressure Position [Right Arm] Sitting 02 Sat by Pulse Oximetry 93 L Oxygen Delivery Method Nasal Cannula Oxygen Flow Rate (LPM) 2 - Lab Data Lab results reviewed: Yes: I reviewed the patient's lab results. Lab Results 04/17/21 16:05: WBC 3.3 L, RBC 3.47 L, Hgb 9.3 L, Hct 30.3 L, MCV 87.3, MCH 26.9 L, MCHC 30.8 L, RDW 21.6 H, Plt Count 191, MPV 8.9, Neut % (Auto) 73.2, Lymph % (Auto) 14.7, [place] % (Auto) 8.3, Eos % (Auto) 3.0, Baso % (Auto) 0.9, Neut # (Auto) 2.4, Lymph # (Auto) 0.5 L, [place] # (Auto) 0.3, Eos # (Auto) 0.1, Baso # (Auto) 0.0 04/17/21 16:05: Sodium 139, Potassium 4.4, Chloride 110 H, Carbon Dioxide 24, Anion Gap 9.4, BUN 18 H, Creatinine 1.90 H, Estimated Creat Clear 29, Estimated GFR 25 L, Est GFR ( Amer) 30 L, Glucose 135 H, Calcium 8.7, Total Bilirubin 0.5, AST 18, ALT 9 L, Alkaline Phosphatase 164 H, Total Protein 5.7 L, Albumin 3.4 L, Globulin 2.3, Albumin/Globulin Ratio 1.5, Lipase 150 04/17/21 16:05: PT 12.3, INR 1.05 04/17/21 16:05: Lactate 0.9 Result diagrams: 04/17/21 16:05 04/17/21 16:05 Orders (Tests/Meds): ED MEDICATIONS Discontinued Medications Generic Name Dose Route Start Last Admin Trade Name Freq PRN Reason Stop Dose Admin Sodium Chloride 1,000 mls @ 999 mls/hr 04/17/21 16:00 04/17/21 16:26 Sod Chlor 0.9% 1000ml Bag IV 04/17/21 17:00 999 mls/hr .Q1H1M MARCELINA Administration Sucralfate 1 gm 04/17/21 17:00 Sucralfate 1gm/10ml Susp Udc PO 04/17/21 17:01 ONCE ONE - CT Data CT Scan: Abdomen, Pelvis Time Received: 17:[address] Reviewed: Yes: I have reviewed the patient's CT results Findings Narrative: ABDOMEN & PELVIS: Prior cholecystectomy. The liver, adrenal glands, spleen, and pancreas have an unremarkable appearance. There are bilateral renal cysts the largest on the left at 6 cm. Along the lower pole of the left kidney there is a hyperdense nodule at 11 mm unchanged. 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 There is an exophytic right renal cyst at 2.7 cm unchanged there is a small umbilical hernia containing fat. No intestinal obstruction or free air. The appendix is not clearly delineated. There are numerous colonic diverticula. No evidence of diverticulitis. Previously noted diverticulitis in the descending colon has improved No pelvic mass or abnormal fluid collection. There is a right total hip prosthesis present with good position. Mild lumbar scoliosis convex left. Mild dilatation of the proximal common iliacs 1.2 cm on the right and 1.3 cm on the left. IMPRESSION: No acute finding Colonic diverticulosis without diverticulitis. Medical Decision Narrative: CT scan with no acute diverticulitis, perforated viscus, obstruction
--- NOTE | 2021-04-17 16:01 | CT_ITS ---
PROCEDURE: CT ABDOMEN PELVIS WO CON CLINICAL INDICATION: epigastric abd pain COMPARISON: CT ABDPELW/O CT ABD PELVIS W/O CONTRAST from 08/10/[address] ABDOMEN PELVIS WO CON from 03/21/[address] ABDOMEN PELVIS WO CON from 03/21/2021 TECHNIQUE: Axial images obtained with sagittal and coronal reformats. All CT scans at the facility use one or more dose reduction, viz: automated exposure control, ma/kV adjustment per patient size (including targeted exams where dose is matched to indication, i.e. head), or iterative reconstruction technique. FINDINGS: LOWER THORAX: There has been interval development of small bilateral pleural effusions. There is cardiomegaly with a medium-sized hiatal hernia. ABDOMEN & PELVIS: Prior cholecystectomy. The liver, adrenal glands, spleen, and pancreas have an unremarkable appearance. There are bilateral renal cysts the largest on the left at 6 cm. Along the lower pole of the left kidney there is a hyperdense nodule at 11 mm unchanged. 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 There is an exophytic right renal cyst at 2.7 cm unchanged there is a small umbilical hernia containing fat. No intestinal obstruction or free air. The appendix is not clearly delineated. There are numerous colonic diverticula. No evidence of diverticulitis. Previously noted diverticulitis in the descending colon has improved No pelvic mass or abnormal fluid collection. There is a right total hip prosthesis present with good position. Mild lumbar scoliosis convex left. Mild dilatation of the proximal common iliacs 1.2 cm on the right and 1.3 cm on the left. IMPRESSION: No acute finding Colonic diverticulosis without diverticulitis. Dictated by: Constantin Peterson MD 04/17/2021 16:38 Constantin Peterson MD in [place] 04/17/2021 16:38
--- NOTE | 2021-04-17 16:15 | PC.NURSE ---
pt to radiology
[2021-04-17 16:20] LABS: Basophils % 0.9 % (0.1-2.0); Eosinophils # 0.1 K/mm3 (0.0-0.4); Hematocrit 30.3 % (37.0-47.0); Hemoglobin 9.3 g/dL (12.2-16.2); Lymphocytes # 0.5 K/mm3 (0.7-4.5); Lymphocytes % 14.7 % (10-50); Mean Corpuscular HGB Conc 30.8 g/dL (31.8-35.4); Mean Corpuscular Hemoglobin 26.9 pg (27.0-31.2); Mean Corpuscular Volume 87.3 fl (81-99); Mean Platelet Volume 8.9 fl (7.4-10.4); Monocytes # 0.3 K/mm3 (0.1-1.0); Monocytes % 8.3 % (1.7-9.3); Neutrophils # 2.4 K/mm3 (1.8-7.8); Neutrophils % 73.2 % (37.0-80.0); Platelet Count 191 K/mm3 (142-424); Red Blood Count 3.47 M/mm3 (4.20-5.40); Red Cell Distribution Width 21.6 % (11.5-17.5); White Blood Count 3.3 K/mm3 (4.8-10.8)
[2021-04-17 16:30] LABS: Chloride 110 mmol/L (98-107); Potassium 4.4 mmoL/L (3.5-5.1); Sodium 139 mmol/L (136-145)
[2021-04-17 16:33] LABS: Alanine Aminotransferase 9 U/L (12-78); Albumin Level 3.4 g/dl (3.5-5.0); Albumin/Globulin Ratio 1.5 (1.1-1.8); Alkaline Phosphatase 164 U/L (38-126); Anion Gap 9.4 mEq/L (5-15); Aspartate Amino Transferase 18 U/L (14-36); Bilirubin,Total 0.5 mg/dl (0.2-1.3); Blood Urea Nitrogen 18 mg/dl (7-17); Calcium 8.7 mg/dl (8.4-10.2); Carbon Dioxide 24 mmol/L (22.0-30.0); Creatinine Clearance Estimated 29 mL/min (50-200); Estimated Glomerular Filt Rate 25 ml/min (>60); GFR (African American) 30 ML/MIN (>60); Globulin 2.3 g/dL (1.3-3.2); Glucose 135 mg/dl (74-100); Lipase 150 U/L (23-300); Total Protein,Serum 5.7 g/dl (6.3-8.2)
[2021-04-17 16:34] LABS: Lactic Acid 0.9 mmol/L (0.7-2.1)
[2021-04-17 16:38] LABS: Prothrombin Time 12.3 seconds (10.1-12.5)
[2021-04-17 16:40] LABS: INR 1.05 (0.9-1.1)
[2021-04-17 17:47] VITALS: BP 135/88; PULSE 65; RESP 16; TEMP 36.6; O2SAT 98
== END 2021-04-17 17:49 | disposition home or self-care (01) ==
PROVIDERS: Emergency Provider Emergency Medicine; PCP Internal Medicine Adolescent Medicine
DX: R10.13 Epigastric pain (principal); R10.11 Right upper quadrant pain; K57.92 Diverticulitis of intestine, part unspecified, without perforation or abscess without bleeding; I48.20 Chronic atrial fibrillation, unspecified; I10 Essential (primary) hypertension; E78.5 Hyperlipidemia, unspecified; F41.8 Other specified anxiety disorders; I25.10 Atherosclerotic heart disease of native coronary artery without angina pectoris; I50.9 Heart failure, unspecified; N28.9 Disorder of kidney and ureter, unspecified; Z88.0 Allergy status to penicillin; Z88.2 Allergy status to sulfonamides; Z88.5 Allergy status to narcotic agent
CPT/HCPCS: 74176; 80053; 83605; 83690; 85025; 85610; 96365; 99283

== ENCOUNTER 2021-11-04 22:39 | Observation (INO) | payer MEDICARE, MEDICAID, SELFPAY ==
[2021-11-04 22:40] VITALS: BP 164/118; PULSE 117; RESP 18; TEMP 36.5; O2SAT 93; BMI 29.9
[2021-11-04 22:48] VITALS: BMI 30.7
--- NOTE | 2021-11-04 22:48 | CT_ITS ---
PROCEDURE INFORMATION: Exam: CT Head Without Contrast Exam date and time: 11/04/2021 10:48 PM Age: 86 years old Clinical indication: Speech disturbance; Aphasia; Additional info: Aphagia TECHNIQUE: Imaging protocol: Computed tomography of the head without contrast. Radiation optimization: All CT scans at this facility use at least one of these dose optimization techniques: automated exposure control; mA and/or kV adjustment per patient size (includes targeted exams where dose is matched to clinical indication); or iterative reconstruction. Other technique: STROKE PROTOCOL was implemented. COMPARISON: CT HEAD/BRAIN WO CON 12/28/2019 9:47 PM FINDINGS: Brain: There is a moderate amount of periventricular white matter disease. There is no area of intraparenchymal or extra-axial hemorrhage present. There is no focal mass. There is no midline shift. The lovelace-white matter junction is intact. Cerebral ventricles: No ventriculomegaly. Paranasal sinuses: Visualized sinuses are unremarkable. No fluid levels. Mastoid air cells: Visualized mastoid air cells are well aerated. Bones/joints: Unremarkable. No acute fracture. Soft tissues: The soft tissues are unremarkable. IMPRESSION: 1. Moderate periventricular white matter disease. 2. Otherwise unremarkable examination of the brain. There is no acute intracranial abnormality seen. ASSESSMENT: ASPECTS ([facility] Stroke Program Early CT Score) is 10.
--- NOTE | 2021-11-04 22:57 | ECG_ITS ---
APPROVED REPORT Exam: Resting ECG HR:112 bpm ECG Measurements Heart Rate 112 AXES QRSd 94 QRS 2 QT 348 T 50 QTc 415 Conclusion ATRIAL FIBRILLATION WITH RAPID VENTRICULAR RESPONSE NONSPECIFIC ST & T-WAVE ABNORMALITY ABNORMAL RHYTHM ECG UNCONFIRMED REPORT Electronically signed by : Jeremy Pride MD 11/05/2021 17:22:53
[2021-11-04 22:58] LABS: POC Glucose,Bedside 125 (70-110)
--- NOTE | 2021-11-04 23:07 | XR_ITS ---
PROCEDURE INFORMATION: Exam: XR Chest Exam date and time: 11/04/2021 11:07 PM Age: 86 years old Clinical indication: Screening exam; Other screening; Additional info: Pna R/O TECHNIQUE: Imaging protocol: XR of the chest. Views: 2 views. COMPARISON: CR XR CHEST PORTABLE 03/21/2021 7:39 AM FINDINGS: Lungs: No focal consolidation. No mass. Pleural spaces: No pleural effusion. No pneumothorax. Heart/Mediastinum: The heart is markedly enlarged. Bones/joints: Unremarkable. There is no acute fracture present. IMPRESSION: 1. Severe cardiomegaly. 2. No acute cardiac or pulmonary process.
[2021-11-04 23:15] VITALS: BP 167/90; PULSE 110; RESP 18; TEMP 36.5; O2SAT 92
[2021-11-04 23:20] LABS: Alanine Aminotransferase 17 U/L (12-78); Albumin Level 3.8 g/dl (3.5-5.0); Albumin/Globulin Ratio 1.7 (1.1-1.8); Alkaline Phosphatase 159 U/L (38-126); Anion Gap 10.4 mEq/L (5-15); Aspartate Amino Transferase 24 U/L (14-36); Bilirubin,Total 0.4 mg/dl (0.2-1.3); Blood Urea Nitrogen 25 mg/dl (7-17); Calcium 8.8 mg/dl (8.4-10.2); Carbon Dioxide 29 mmol/L (22.0-30.0); Chloride 105 mmol/L (98-107); Creatinine Clearance Estimated 28 mL/min (50-200); Estimated Glomerular Filt Rate 25 ml/min (>60); GFR (African American) 30 ML/MIN (>60); Globulin 2.3 g/dL (1.3-3.2); Glucose 116 mg/dl (74-100); INR 0.98 (0.9-1.1); Potassium 4.4 mmoL/L (3.5-5.1); Prothrombin Time 11.1 seconds (10.1-12.5); Sodium 140 mmol/L (136-145); Total Protein,Serum 6.1 g/dl (6.3-8.2)
--- NOTE | 2021-11-04 23:20 | PC.NURSE ---
[address] FOR SCANS
--- NOTE | 2021-11-04 23:25 | HMH.EDAMS ---
ED Disposition Clinical Impression: TIA (transient ischemic attack), Acquired hypothyroidism Altered mental status Qualifiers: Altered mental status type: unspecified Qualified Code(s): R41.82 - Altered mental status, unspecified CKD (chronic kidney disease) Qualifiers: Chronic kidney disease stage: unspecified stage Qualified Code(s): N18.9 - Chronic kidney disease, unspecified Atrial fibrillation Qualifiers: Atrial fibrillation type: longstanding persistent Qualified Code(s): I48.11 - Longstanding persistent atrial fibrillation Disposition: Admitted as Observation Condition on Discharge: Good Instructions: DI for Altered Mental Status Referrals: Jeremy Pride MD [Primary Care Provider] - - Critical Care Critical Care Time: No Attestation: On 11/04/21, the high probability of a clinically significant, sudden or life threatening deterioration of the following system(s) required my full and direct attention, intervention and personal management. The time I documented below is in addition to time spent performing reported procedures but includes the following listed in this critical care notation. Medical Decision Making - Medical Records Medical records reviewed: Yes: I reviewed the patient's medical records. - Dirk Inquiry Pt receiving controlled substance: No Vital Signs: 11/04/21 22:40 11/04/21 23:15 Temperature 97.7 F 97.7 F Temperature Source Oral Rectal Pulse Rate 110 H Pulse Rate [Left Radial] 117 H Respiratory Rate 18 18 Blood Pressure 167/90 H Blood Pressure [Right Arm] 164/118 H Blood Pressure Mean [Right Arm] 133 Blood Pressure Source [Right Arm] Automatic Cuff Blood Pressure Position Sitting Blood Pressure Position [Right Arm] Sitting 02 Sat by Pulse Oximetry 93 L 92 L Oxygen Delivery Method Room Air Room Air - Lab Data Lab results reviewed: Yes: I reviewed the patient's lab results. Lab Results 11/04/21 22:51: POC Glucose 125 H 11/04/21 23:04: WBC 4.0 L, RBC 3.71 L, Hgb 10.7 L, Hct 35.3 L, MCV 95.2, MCH 28.9, MCHC 30.3 L, RDW 17.4, Plt Count 237, MPV 8.1, Neut % (Auto) 71.1, Lymph % (Auto) 15.9, [place] % (Auto) 8.1, Eos % (Auto) 3.1, Baso % (Auto) 1.9, Neut # (Auto) 2.9, Lymph # (Auto) 0.6 L, [place] # (Auto) 0.3, Eos # (Auto) 0.1, Baso # (Auto) 0.1 11/04/21 23:04: Sodium 140, Potassium 4.4, Chloride 105, Carbon Dioxide 29, Anion Gap 10.4, BUN 25 H, Creatinine 1.90 H, Estimated Creat Clear 28, Estimated GFR 25 L, Est GFR ( Amer) 30 L, Glucose 116 H, Calcium 8.8, Total Bilirubin 0.4, AST 24, ALT 17, Alkaline Phosphatase 159 H, Total Protein 6.1 L, Albumin 3.8, Globulin 2.3, Albumin/Globulin Ratio 1.7, TSH 3.53, Thyroxine (T4) 7.5, Salicylates < 1.0 L, Acetaminophen < 10 L 11/04/21 23:04: PT 11.1, INR 0.98 11/04/21 23:33: Urine Opiates Screen Negative, Urine Methadone Screen Negative, Ur Barbituates Screen Negative, Ur Phencyclidine Scrn Negative, Ur Amphetamines Screen Negative, U Benzodiazepines Scrn Negative, Urine Cocaine Screen Negative, U Marijuana (THC) Screen Negative 11/04/21 23:35: Urine Color Yellow, Urine Appearance Clear, Urine pH 6.0, Ur Specific [place] 1.025, Urine Protein Negative, Urine Glucose (UA) Negative, Urine Ketones Negative, Urine Blood Negative, Urine Nitrate Negative, Urine Bilirubin Negative, Urine Urobilinogen 0.2, Ur Leukocyte Esterase Negative, Urine RBC None, Urine WBC None, Ur Squamous Epith Cells Occasional, Urine Bacteria Trace 11/04/21 23:35: SARS-CoV-2 (PCR) Not detected, Influenza A Untype (PCR) Not detected, Influenza Type B (PCR) Not detected Result diagrams: 11/04/21 23:04 11/04/21 23:04 Orders (Tests/Meds): ED MEDICATIONS Generic Name Dose Route Start Last Admin Trade Name Freq PRN Reason Stop Dose Admin Sodium Chloride 1,000 mls @ 999 mls/hr 11/04/21 23:45 11/04/21 23:49 Sod Chlor 0.9% 1000ml Bag IV 11/05/21 00:45 999 mls/hr .Q1H1M MARCELINA Administration Discontinued Medications Generic Name Dose Route Start Last
[2021-11-04 23:29] LABS: Basophils # 0.1 K/mm3 (0-0.2); Basophils % 1.9 % (0.1-2.0); Eosinophils # 0.1 K/mm3 (0.0-0.4); Eosinophils % 3.1 % (0.1-12.0); Hematocrit 35.3 % (37.0-47.0); Hemoglobin 10.7 g/dL (12.2-16.2); Lymphocytes # 0.6 K/mm3 (0.7-4.5); Lymphocytes % 15.9 % (10-50); Mean Corpuscular HGB Conc 30.3 g/dL (31.8-35.4); Mean Corpuscular Hemoglobin 28.9 pg (27.0-31.2); Mean Corpuscular Volume 95.2 fl (81-99); Mean Platelet Volume 8.1 fl (7.4-10.4); Monocytes # 0.3 K/mm3 (0.1-1.0); Monocytes % 8.1 % (1.7-9.3); Neutrophils # 2.9 K/mm3 (1.8-7.8); Neutrophils % 71.1 % (37.0-80.0); Platelet Count 237 K/mm3 (142-424); Red Blood Count 3.71 M/mm3 (4.20-5.40); Red Cell Distribution Width 17.4 % (11.5-17.5)
[2021-11-04 23:32] LABS: Acetaminophen < 10 ug/ml (10-30); Salicylate < 1.0 mg/dL (2.0-20.0)
[2021-11-04 23:37] LABS: T4 (Thyroxine) 7.5 ug/dl (5.53-11.0)
[2021-11-04 23:37] LABS: Microscopic, Urine URINE MICROSCOPIC (MICROSCOPIC)
[2021-11-04 23:40] LABS: Appearance,Urine CLEAR (Clear); Bilirubin,Urine Negative (Negative); Blood, Urine Negative (Negative); Color,Urine YELLOW (Yellow); Glucose,Urine (UA) Negative (Negative); Ketones,Urine Negative (Negative); Leukocyte Esterase,Urine Negative (Negative); Nitrate,Urine Negative (Negative); Protein,Urine Negative (Negative); Specific Gravity, Urine 1.025 (1.005-1.030); Urobilinogen,Urine 0.2 EU/dl (0.2)
[2021-11-04 23:41] LABS: Coronavirus 19, PCR Not Detected (NotDetected); Influenza A, PCR Not Detected (NotDetected); Influenza B, PCR Not Detected (NotDetected)
--- NOTE | 2021-11-04 23:47 | PC.NURSE ---
Dr. Villatoro s/w Nubiaad
[2021-11-04 23:50] LABS: Thyroid Stimulating Hormone 3.53 uIU/mL (0.465-4.68)
[2021-11-04 23:51] LABS: Barbiturates Screen,Urine Negative ng/ml (<200)
[2021-11-04 23:52] LABS: Benzodiazepines Screen,Urine Negative ng/ml (<200)
[2021-11-04 23:53] LABS: Amphetamine/Metha Screen,Urine Negative ng/ml (<1000); Cannabinoid Screen,Urine Negative ng/ml (<50)
[2021-11-04 23:54] LABS: Cocaine Screen,Urine Negative ng/ml (<300); Methadone Screen,Urine Negative ng/ml (<300)
[2021-11-04 23:55] LABS: Opiate Screen,Urine Negative ng/ml (<300)
[2021-11-04 23:56] LABS: Bacteria,Urine Trace /lpf; Squamous Epithelial Cell,Urine Occasional #/hpf (0-5)
[2021-11-04 23:56] LABS: Phencyclidine Screen,Urine Negative ng/ml (<25)
[2021-11-05] VITALS (8 sets, daily range): BP systolic 138–182; BP diastolic 89–121; PULSE 89–118; RESP 16–25; TEMP 36.4–36.9; O2SAT 90–98; BMI 31.6
--- NOTE | 2021-11-05 00:29 | PC.NURSE ---
2LNC applied d/t O2 sat of 86%. Pt wears 2LNC as needed at home. Pt has no complaints at this time. Daughter at bedside.
--- NOTE | 2021-11-05 00:53 | PC.NURSE ---
Dr. Villatoro to admit for Dr. Pride. rubber stamps and dies supervisor notified for bed assignment
[2021-11-05 01:32] LABS: Troponin I 0.02 ng/ml (0.00-0.034)
--- NOTE | 2021-11-05 02:01 | PC.NURSE ---
patient up to floor via wheelchair @ this time.
--- NOTE | 2021-11-05 06:43 | PC.NURSE ---
PATIENT RESTED WELL DURING THIS RN SHIFT. BP CONTINUED TO BE ELEVATED. ECHO AT BEDSIDE AT THIS TIME. NO NEW CONCERNS OR COMPLAINTS AT THIS TIME.
--- NOTE | 2021-11-05 07:21 | P.CONPHA_ITS ---
[facility] Pharmacy VTE Monitoring - Patient Demographics Admission date: 11/05/21 Report Date: 11/05/21 Time: 07:21 Allergies/Adverse Reactions: Patient Allergies iodine [IODINE] Allergy (Severe, Verified 05/02/20 11:32) S-ANAPHYLAXIS Sulfa (Sulfonamide Antibiotics) [SULFA (SULFONAMIDE ANTIBIOTICS)] Allergy (Severe, Verified 05/02/20 11:32) I-HIVES Penicillins [PENICILLINS] Allergy (Intermediate, Verified 05/02/20 11:32) I-RASH codeine [CODEINE] Allergy (Unknown, Verified 05/02/20 11:32) NA-HALLUCINATIONS hydrogen peroxide Allergy (Unknown, Verified 05/02/20 11:32) Height: 1.65 m Weight: 86.001 kg Patient Problems: Current Active Problems CKD (chronic kidney disease) (Chronic) Atrial fibrillation (Chronic) Acquired hypothyroidism (Chronic) Altered mental status (Acute) TIA (transient ischemic attack) (Acute) - VTE Risk Labs: VTE Related Lab Results Hgb 10.7 g/dL (12.2-16.2) L 11/04/21 23:04 Hct 35.3 % (37.0-47.0) L 11/04/21 23:04 Plt Count 237 K/mm3 (142-424) 11/04/21 23:04 PT 11.1 seconds (10.1-12.5) 11/04/21 23:04 INR 0.98 (0.9-1.1) 11/04/21 23:04 BUN 25 mg/dl (7-17) H 11/04/21 23:04 Creatinine 1.90 mg/dl (0.52-1.04) H 11/04/21 23:04 Estimated Creat Clear 28 mL/min (50-200) 11/04/21 23:04 Was VTE Risk Assessment Performed: Yes VTE Score: 8 VTE Risk Level: Moderate Risk Clinical Trial Participant: No - Prophylaxis VTE Prophylaxis Ordered?: Yes Types of VTE Prophylaxis: TEDS Knee High
[2021-11-05 07:34] LABS: Basophils % 0.6 % (0.1-2.0); Eosinophils # 0.1 K/mm3 (0.0-0.4); Eosinophils % 3.1 % (0.1-12.0); Hematocrit 33.2 % (37.0-47.0); Lymphocytes # 0.9 K/mm3 (0.7-4.5); Lymphocytes % 20.6 % (10-50); Mean Corpuscular HGB Conc 30.1 g/dL (31.8-35.4); Mean Corpuscular Hemoglobin 28.7 pg (27.0-31.2); Mean Corpuscular Volume 95.4 fl (81-99); Mean Platelet Volume 8.3 fl (7.4-10.4); Monocytes # 0.4 K/mm3 (0.1-1.0); Monocytes % 9.7 % (1.7-9.3); Neutrophils # 2.8 K/mm3 (1.8-7.8); Platelet Count 219 K/mm3 (142-424); Red Blood Count 3.48 M/mm3 (4.20-5.40); Red Cell Distribution Width 17.3 % (11.5-17.5); White Blood Count 4.2 K/mm3 (4.8-10.8)
[2021-11-05 07:37] LABS: Anion Gap 9.5 mEq/L (5-15); Blood Urea Nitrogen 23 mg/dl (7-17); Calcium 8.6 mg/dl (8.4-10.2); Carbon Dioxide 27 mmol/L (22.0-30.0); Chloride 108 mmol/L (98-107); Creatinine Clearance Estimated 32 mL/min (50-200); Estimated Glomerular Filt Rate 28 ml/min (>60); GFR (African American) 34 ML/MIN (>60); Glucose 95 mg/dl (74-100); Magnesium 1.7 mg/dl (1.6-2.3); Potassium 4.5 mmoL/L (3.5-5.1); Sodium 140 mmol/L (136-145)
--- NOTE | 2021-11-05 08:00 | CA_ITS ---
FINAL REPORT TECHNIQUE: Color Doppler, duplex Doppler and lovelace scale sonography of the bilateral neck arterial vasculature was performed. Velocities were measured in the carotid arteries. Stenosis evaluation based on the validated velocity criteria. CLINICAL HISTORY: tia, Afib,SCOTT, Exsmoker,HTN FINDINGS: The peak systolic velocity of the right common carotid artery is 47 cm/s. The peak systolic velocity of the right internal carotid artery is 122 cm/s and end diastolic velocity 52 cm/s. The ICA/CCA ratio is 2.6. A small amount of plaque is present. The right external carotid artery is patent. The right vertebral artery is patent with antegrade flow. The peak systolic velocity of the left common carotid artery is 50 to cm/s. The peak systolic velocity of the left internal carotid artery is 163 cm/s and end diastolic velocity 54 cm/s. The ICA/CCA ratio is 3.1. A small amount of plaque is present. The left external carotid artery is patent. The left vertebral artery is patent with antegrade flow. IMPRESSION: Less than 50% bilateral carotid stenoses. Bilateral patent vertebral arteries with antegrade flow. Due to the elevated ICA CCA ratios, consider CTA or MRA. Reviewed, Interpreted and Dictated by Sinan Abrams III, MD Transcribed by Jyoti Gallagher Authenticated by Sinan Abrams III, MD on 11/05/2021 07:44:31 AM [facility]
--- NOTE | 2021-11-05 08:00 | CA_ITS ---
APPROVED REPORT EXAM: Comprehensive 2D, Doppler, and color-flow Echocardiogram Truck Driver Instructor: Raven Wilkerson CRT Ht: 5 ft 5 in Wt: 185lbs BSA: 1.91 BP: 167/90 mmHg Indications: Congestive Heart Failure, CAD, Hyperlipidemia, Hypertension/HDD, home o2 prn 2D Dimensions LVOT 1.81 cm (M/F) 1.5-2.5 LA Volume 94.30 mL LA Volume Index 49.40 mL/m2 (M/F) 16-34 M-Mode Dimensions RVDd 3.14 cm (0.9-2.6) LA Diam 5.58 cm (1.9-4.0) LVDd 4.23 cm (3.5-5.7) Ao Diam 3.49 cm (2.0-3.7) LVDs 3.41 cm (3.5-5.7) IVSd 1.64 cm (0.6-1.1) PWd 1.43 cm (0.6-1.1) EF (Teich) 40.20% FS 19.40% EDV (Teich) 79.90 mL ESV (Teich) 47.80 mL LV Diastology E Decel Time 120.00 (160-240 msec) E/A Ratio 2.98 MED E' 4.10 (< 7 cm/sec) MED A' 7.10 cm/s E'/MED E' Ratio 23.71 (>14) LAT E' 8.50 (<10 cm/sec) LAT A' 4.70 cm/s E/LAT E' Ratio 11.44 (>14) Aortic Valve AI PHT 427.00 ms AO Peak GR. 6.50 mmHg Mitral Valve MV E Max Moe. 97.00 (40-130 cm/s) MV A Velocity 33.00 (40-130 cm/s) E/A Ratio 2.98 MV Decel. Time 120.00 (160-240 ms) MV PHT 35.00 ms Pulmonary Valve PV Peak Velocity 120.00 (50-150 cm/s) Tricuspid Valve TR P. Velocity 260.00 cm/s RAP Estimate 10.00 mmHg RVSP 37.10 mmHg Left Ventricle Left atrium is moderately enlarged, left ventricle is normal size, mild concentric left ventricular hypertrophy, visually estimated ejection fraction 50% with no obvious regional wall motion abnormality. Diastolic parameters are inconclusive. Right Ventricle Right atrium is moderately enlarged, right ventricle is mildly dilated with normal contractility. Aortic Valve Aortic valve is thickened and calcified without aortic stenosis, there is mild aortic insufficiency. Mitral Valve Mitral valve leaflets are minimally thickened, there is no mitral stenosis, there is mild mitral regurgitation. Tricuspid Valve Tricuspid valve grossly normal, there is mild tricuspid regurgitation, calculated right ventricular systolic pressure 33 mmHg. Pulmonic Valve Pulmonic valve is poorly visualized. Great Vessels Aortic root is normal size. Inferior vena cava is mildly dilated without significant inspiratory collapse. Pericardium No significant pericardial effusion noted. Conclusion 1. Moderate biatrial enlargement, normal left ventricular size, mild concentric left ventricular hypertrophy, estimated ejection fraction 50% with no obvious regional wall motion abnormality, diastolic parameters are inconclusive. 2. Mildly enlarged right ventricle with normal contractility. 3. Thickened and calcified aortic valve with mild aortic insufficiency. 4. Mild mitral and tricuspid regurgitation, calculated right ventricular systolic pressure 33 mmHg. 5. Inferior vena cava is mildly dilated without significant inspiratory collapse. 6. No significant pericardial effusion noted. Electronically signed by : Carlos Monsivais MD 11/05/2021 09:26:29
--- NOTE | 2021-11-05 09:58 | HMH.PTEV ---
Physical Therapy Evaluation Rehab PT IP Evaluation Start: 11/05/21 09:11 Freq: ONCE Status: Active Protocol: Document 11/05/21 09:54 CONCHITA (Rec: 11/05/21 09:57 CONCHITA [id number]) Subjective/History History History pt with not feeling well over the last week and confusion tonight with no fever or trauma - had some word finding diff earlier and repetive speech - hx of a fib - copied from ED H&P Subjective Subjective Pt reports no complaints - states she feels much better than yesterday Rehab PT IP Eval Objective Appearance Patient Behavior Appropriate,Cooperative Patient Orientation Place,Name,Birthday,Year Difficulty following instructions none Speech Pattern Clear,Appropriate Ambulation Patient Able to Ambulate Yes Ambulation Observation IP General Gait Pattern Observation No Deviations/Normal Ambulation Distance (feet) 60 Ambulation Assistive Device Rolling Walker Ambulation Ability Supervision/Stand by,Contact Guard/Hand Hold Balance Ability to Arise Able, uses arms to help Sitting Balance Steady, safe Standing Balance Steady, wide stance Dynamic Sitting Balance Ability Normal Dynamic Standing Balance Ability Good Transfers Bed Transfer Ability Independent Chair Transfer Ability Independent Sit to Stand Bed Transfer Ability Supervision/Stand by Sit to Stand Chair Transfer Ability Supervision/Stand by ROM All Extremities PT ROM Status WFL MMT All Extremities PT MMT WFL Rehab PT IP prob,goals,plan Problems Date of Evaluation: 11/05/21 Rehab Potential Rehab Potential Innapropriate for Skilled Therapy Discharge Plan PT Discharge Plan No skilled therapy neede at this time - pt to return home once medically stable G -code Required Yes Eval Complexity Eval Charge Codes 65488 - Low Complexity G Codes PT Current Status Mobility PT Current Status Modifier CI-At least 1% but less than 20% impaired, limited or restricted PT Goal Status Mobility PT Goal Status Modifer CI-At least 1% but less than 20% impaired, limited or restricted
--- NOTE | 2021-11-05 10:08 | HMH.OTEV ---
OT Inpatient Evaluation Rehab OT IP Evaluation Start: 11/05/21 09:11 Freq: ONCE Status: Complete Protocol: Document 11/05/21 10:01 RAFA (Rec: 11/05/21 10:08 RAFA [id number]) Rehab OT IP Assessment Subjective History 86 year old female brought to the ED on 11/05/21 for altered mental status. Dtr stated patient has been shaky, weak and overall confused for the past several days. Patient admitted for TIA and altered mental status. Patient lives alone in an apartment. Dtr and son-in-law live close by and check on her daily. Patient completes all ADLs independently and will use a cane/WC to ambulate within the home. Subjective I can get up. Instructed Patient on safety awareness during bed mobility, transfers and ambulation with usage of RW. Patient completed all tasks independently. No LOB noted. Patient completed LB drsg independently. Objective Patient Orientation Person,Place,Name Upper Extremity Gross ROM WFL Bed Mobility bed mobility - supine/sit Assist Level Independent Transfer Training Sit/Stand/Pivot Transfer Assist Level Independent Chair Transfer Ability Independent Chair Transfer Technique Sit to/from Ambulatory Chair Transfer Assistive Devices Rolling Walker Lower Body Dressing Ability Independent Rehab OT IP prob,goals,plan Problems Date of Evaluation: 11/05/21 Rehab Potential Rehab Potential Innapropriate for Skilled Therapy Equipment Needs Assistive Devices Rolling / Wheeled Walker Discharge Plan OT Discharge Plan Patient appears to be at baseline with ADLs and fx'l mobility. Patient is oriented x4. Recommend Patient to return home with services as needed. Eval Complexity Eval Charge Codes 03706 - Low Complexity G Codes G -code Required No PHYSICIAN CERTIFICATION: Izabella hirsch
--- NOTE | 2021-11-05 13:53 | HMH.HPDC ---
General - General Admission date:: 11/05/21 Discharge date: 11/05/21 *Admission Date: 11/05/21 *Chief complaint: Mental status changes/bacteriuria *History of present illness: 86-year-old white female who has been blessed with excellent functional status over the past decades but who does have diastolic CHF, atrial dysrhythmias, chronic kidney disease and is on chronic anticoagulation therapy who was doing well yesterday until she returned home from going out for supper and when she returned home was very confused and thought that her electricity was possibly out and had some disorientation. Brought to the emergency department, CT scan was unremarkable with no filter changer baseline, metabolic studies were also unremarkable with no change in her kidney disease function but did have slightly high blood pressures. She was admitted overnight for further evaluation. [facility] History I have reviewed the patient's past medical history: Yes Medical History: Reports:: Anxiety, Arrhythmia, Atrial Fibrillation, Cancer, Congestive Heart Failure, Coronary Artery Disease, Depression, Heart Murmur, Hyperlipidemia, Hypertension, Renal Disease Denies:: Diabetes Mellitus Type 1, Diabetes Mellitus Type 2, MRSA *Have you ever received a pneumonia vaccine?: No *Have you received a flu vaccine this season?: No Other Medical History: Reports: Anemia, Arthritis, Hormone Therapy, Hypothyroidism, Radiation Therapy Laterality Cases: Left: Breast Biopsy, Lumpectomy, Right: Total Hip Replacement Other Surgeries: Yes: Colonoscopy, Other Amputation: No Fractures: No - *Social History Smoking Status: Former smoker Tobacco Type: cigarettes Alcohol Intake: never Alcohol Intake Frequency:: holidays/special occasions only Substance Use Type: denies use *Occupational Status:: retired Housing: apartment Household Members: family *Travel in the last 8 weeks: None - Psychiatric History Pschychiatric History:: Reports:: Anxiety, Depression Family Hx:: Anemia, Cancer, Diabetes, Hyperlipidemia, Hypertension, Kidney Disease, Stroke, Thyroid Disorder SENIOR SOFTWARE MANAGER history: No SENIOR SOFTWARE MANAGER history Review of Systems - Review of Systems Review of systems:: pertinent systems reviewed and negative unless documented below - *Neurologic Denies localized weakness, Denies seizure-like activity Exam Vital signs and Labs for Last 24 Hours: Temp Pulse Resp BP Pulse Ox 98.0 F 89 16 154/90 H 94 L 11/05/21 08:00 11/05/21 08:00 11/05/21 08:00 11/05/21 08:00 11/05/21 08:00 Laboratory Results - last 24 hr 11/04/21 00:00: Troponin I 0.02 11/04/21 22:51: POC Glucose 125 H 11/04/21 23:04: WBC 4.0 L, RBC 3.71 L, Hgb 10.7 L, Hct 35.3 L, MCV 95.2, MCH 28.9, MCHC 30.3 L, RDW 17.4, Plt Count 237, MPV 8.1, Neut % (Auto) 71.1, Lymph % (Auto) 15.9, Davis % (Auto) 8.1, Eos % (Auto) 3.1, Baso % (Auto) 1.9, Neut # (Auto) 2.9, Lymph # (Auto) 0.6 L, Davis # (Auto) 0.3, Eos # (Auto) 0.1, Baso # (Auto) 0.1 11/04/21 23:04: Sodium 140, Potassium 4.4, Chloride 105, Carbon Dioxide 29, Anion Gap 10.4, BUN 25 H, Creatinine 1.90 H, Estimated Creat Clear 28, Estimated GFR 25 L, Est GFR ( Amer) 30 L, Glucose 116 H, Calcium 8.8, Total Bilirubin 0.4, AST 24, ALT 17, Alkaline Phosphatase 159 H, Total Protein 6.1 L, Albumin 3.8, Globulin 2.3, Albumin/Globulin Ratio 1.7, TSH 3.53, Thyroxine (T4) 7.5, Salicylates < 1.0 L, Acetaminophen < 10 L 11/04/21 23:04: PT 11.1, INR 0.98 11/04/21 23:33: Urine Opiates Screen Negative, Urine Methadone Screen Negative, Ur Barbituates Screen Negative, Ur Phencyclidine Scrn Negative, Ur Amphetamines Screen Negative, U Benzodiazepines Scrn Negative, Urine Cocaine Screen Negative, U Marijuana (THC) Screen Negative 11/04/21 23:35: Urine Color Yellow, Urine Appearance Clear, Urine pH 6.0, Ur Specific [place] 1.025, Urine Protein Negative, Urine Glucose (UA) Negative, Urine Ketones Negative, Urine Blood Negative, Urine Nitrate Negative, Urine Bilirubin Negative, Urine Urobilinogen 0.2, Ur Le
--- NOTE | 2021-11-06 13:34 | CARE MANAGER ---
Spoke with patient's daughter, Patti. 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 She feels much better today and will follow up with Dr. Pride as scheduled on November 11, 2021. ANNETTE Matthews
== END 2021-11-05 17:15 | disposition home or self-care (01) ==
LOC: ER 22:46 → 2ND 11-05 01:08
PROVIDERS: Admitting Provider Emergency Medicine; Emergency Provider Emergency Medicine; PCP Internal Medicine Adolescent Medicine; Visit Provider Internal Medicine Adolescent Medicine
DX: I48.11 Longstanding persistent atrial fibrillation (principal); G45.8 Other transient cerebral ischemic attacks and related syndromes; N18.9 Chronic kidney disease, unspecified; Z88.8 Allergy status to other drugs, medicaments and biological substances; Z79.899 Other long term (current) drug therapy; Z79.01 Long term (current) use of anticoagulants; I50.9 Heart failure, unspecified; I12.9 Hypertensive chronic kidney disease with stage 1 through stage 4 chronic kidney disease, or unspecified chronic kidney disease; I25.10 Atherosclerotic heart disease of native coronary artery without angina pectoris; R82.71 Bacteriuria; Z20.822 Contact with and (suspected) exposure to COVID-19; E03.9 Hypothyroidism, unspecified
CPT/HCPCS: G0378; 70450; 71046; 80048; 80053; 80305; 80329; 81001; 82962; 83735; 84436; 84443; 84484; 85025; 85610; 93005; 93306; 93880; 96365; 97161; 97165; 99285; C9803; J1956; U0003; U0005

== ENCOUNTER 2022-03-21 16:36 | Inpatient (IN) | payer MEDICARE, MEDICAID, SELFPAY ==
[2022-03-21] VITALS (15 sets, daily range): BP systolic 157–190; BP diastolic 98–125; PULSE 81–112; RESP 20–26; TEMP 36.5–36.6; O2SAT 96–100; BMI 32.8; BMI 29.9
--- NOTE | 2022-03-21 16:43 | XR_ITS ---
PROCEDURE INFORMATION: Exam: XR Chest Exam date and time: 03/21/2022 5:04 PM Age: 86 years old Clinical indication: Shortness of breath; Additional info: Weakness TECHNIQUE: Imaging protocol: Radiologic exam of the chest. Views: 1 view. COMPARISON: CR XR CHEST 2V 11/04/2021 11:11 PM FINDINGS: Lungs: Indistinctness of the left hemidiaphragm and left lung base. Combined findings suggest regions of consolidation and pleural effusion. Pleural spaces: See Lungs finding. Heart/Mediastinum: Cardiomegaly Bones/joints: Unremarkable. IMPRESSION: 1. Findings suggesting left lower lobe region of consolidation with possible pleural effusion. 2. Cardiomegaly.
[2022-03-21 16:49] LABS: Coronavirus 19, PCR Not Detected (NotDetected); Influenza A, PCR Not Detected (NotDetected); Influenza B, PCR Not Detected (NotDetected)
--- NOTE | 2022-03-21 16:49 | HMH.EDGENADL ---
ED Disposition Clinical Impression: Hypertensive emergency Congestive heart failure Qualifiers: Heart failure type: unspecified Heart failure chronicity: acute on chronic Qualified Code(s): I50.9 - Heart failure, unspecified Respiratory failure with hypoxia Qualifiers: Chronicity: acute on chronic Qualified Code(s): J96.21 - Acute and chronic respiratory failure with hypoxia Disposition: Admitted As Inpatient Condition on Discharge: Serious Referrals: Provider,Referral, MD [Primary Care Provider] - - Critical Care Critical Care Time: Yes Attestation: On , the high probability of a clinically significant, sudden or life threatening deterioration of the following system(s) required my full and direct attention, intervention and personal management. The time I documented below is in addition to time spent performing reported procedures but includes the following listed in this critical care notation. Total Critical Care Time: 30 Vital system(s) involved:: Circulatory Failure, Respiratory Failure My critical care processes included: Assessment & monitoring of V/S, Initial and Re-exams, Data Review/Interpretation, Coordinating Care, Medication Orders and management, Documentation Medical Decision Making - Medical Records Medical records reviewed: Yes: I reviewed the patient's medical records. MR Comment: Reviewed most recent echocardiogram report, see below. - Dirk Inquiry Pt receiving controlled substance: No Vital Signs: 03/21/22 16:39 03/21/22 17:00 03/21/22 17:18 Temperature 98 F Temperature Source Oral Pulse Rate 97 H Pulse Rate [Radial] 81 Respiratory Rate 22 21 Blood Pressure 185/106 H 164/110 H Blood Pressure [Right Arm] 175/108 H Blood Pressure Mean 122 Blood Pressure Mean [Right Arm] 130 Blood Pressure Source Manual Cuff/ Auscultation Blood Pressure Position [Right Arm] Sitting 02 Sat by Pulse Oximetry 98 100 Oxygen Delivery Method Nasal Cannula Nasal Cannula Oxygen Flow Rate (LPM) 2 3 - Lab Data Lab Results 03/21/22 16:40: WBC 3.5 L, RBC 3.61 L, Hgb 10.4 L, Hct 34.8 L, MCV 96.2, MCH 28.7, MCHC 29.8 L, RDW 16.9, Plt Count 245, MPV 8.4, Neut % (Auto) 69.1, Lymph % (Auto) 16.5, Band[place] % (Auto) 9.7 H, Eos % (Auto) 3.2, Baso % (Auto) 1.6, Neut # (Auto) 2.5, Lymph # (Auto) 0.6 L, [place] # (Auto) 0.3, Eos # (Auto) 0.1, Baso # (Auto) 0.1 03/21/22 16:40: Sodium 140, Potassium 4.3, Chloride 109 H, Carbon Dioxide 27, Anion Gap 8.3, BUN 25 H, Creatinine 1.90 H, Estimated Creat Clear 28, Estimated GFR 25 L, Est GFR ( Amer) 30 L, Glucose 117 H, Calcium 8.8, Total Bilirubin 0.2, AST 23, ALT 16, Alkaline Phosphatase 181 H, Troponin I 0.03, NT-Pro-B Natriuret Pep 81142 H, Total Protein 5.6 L, Albumin 3.4 L, Globulin 2.2, Albumin/Globulin Ratio 1.5 03/21/22 16:40: SARS-CoV-2 (PCR) Not detected, Influenza A Untype (PCR) Not detected, Influenza Type B (PCR) Not detected Result diagrams: 03/21/22 16:40 03/21/22 16:40 Orders (Tests/Meds): ED MEDICATIONS Generic Name Dose Route Start Last Admin Trade Name Freq PRN Reason Stop Dose Admin Nitroglycerin/Dextrose 250 mls @ 3 mls/hr 03/21/22 17:30 03/21/22 17:27 Nitroglycerin 50mg/250ml D5w IV 04/20/22 17:29 10 mcg/min .Q24H MARCELINA 3 mls/hr Administration Protocol 10 MCG/MIN Discontinued Medications Generic Name Dose Route Start Last Admin Trade Name Freq PRN Reason Stop Dose Admin Bumetanide 1 mg 03/21/22 17:21 03/21/22 17:27 Bumetanide 1mg/4ml Vial IV 03/21/22 17:22 1 mg ONCE ONE Administration ORDERS Category Date Time Status Troponin I Q3H Lab 03/21/22 19:45 Ordered Troponin I Q3H Lab 03/21/22 22:45 Ordered Urinalysis and Microscopic Stat Lab 03/21/22 17:05 Ordered Most recent ECHO: Conclusion 1. Moderate biatrial enlargement, normal left ventricular size, mild concentric left ventricular hypertrophy, estimated ejection fraction 50% with no obvious regional wall
[2022-03-21 16:52] LABS: Basophils # 0.1 K/mm3 (0-0.2); Basophils % 1.6 % (0.1-2.0); Eosinophils # 0.1 K/mm3 (0.0-0.4); Eosinophils % 3.2 % (0.1-12.0); Hematocrit 34.8 % (37.0-47.0); Hemoglobin 10.4 g/dL (12.2-16.2); Lymphocytes # 0.6 K/mm3 (0.7-4.5); Lymphocytes % 16.5 % (10-50); Mean Corpuscular HGB Conc 29.8 g/dL (31.8-35.4); Mean Corpuscular Hemoglobin 28.7 pg (27.0-31.2); Mean Corpuscular Volume 96.2 fl (81-99); Mean Platelet Volume 8.4 fl (7.4-10.4); Monocytes # 0.3 K/mm3 (0.1-1.0); Monocytes % 9.7 % (1.7-9.3); Neutrophils # 2.5 K/mm3 (1.8-7.8); Neutrophils % 69.1 % (37.0-80.0); Platelet Count 245 K/mm3 (142-424); Red Blood Count 3.61 M/mm3 (4.20-5.40); Red Cell Distribution Width 16.9 % (11.5-17.5); White Blood Count 3.5 K/mm3 (4.8-10.8)
[2022-03-21 16:59] LABS: Alanine Aminotransferase 16 U/L (12-78); Albumin Level 3.4 g/dl (3.5-5.0); Albumin/Globulin Ratio 1.5 (1.1-1.8); Alkaline Phosphatase 181 U/L (38-126); Anion Gap 8.3 mEq/L (5-15); Aspartate Amino Transferase 23 U/L (14-36); Bilirubin,Total 0.2 mg/dl (0.2-1.3); Blood Urea Nitrogen 25 mg/dl (7-17); Calcium 8.8 mg/dl (8.4-10.2); Carbon Dioxide 27 mmol/L (22.0-30.0); Chloride 109 mmol/L (98-107); Creatinine Clearance Estimated 28 mL/min (50-200); Estimated Glomerular Filt Rate 25 ml/min (>60); GFR (African American) 30 ML/MIN (>60); Globulin 2.2 g/dL (1.3-3.2); Glucose 117 mg/dl (74-100); Potassium 4.3 mmoL/L (3.5-5.1); Sodium 140 mmol/L (136-145); Total Protein,Serum 5.6 g/dl (6.3-8.2)
[2022-03-21 17:11] LABS: NT Pro Brain Natriuretic Pep. 16600 pg/mL (0-450); Troponin I 0.03 ng/ml (0.00-0.034)
--- NOTE | 2022-03-21 17:15 | PC.NURSE ---
DR GOULD AT BEDSIDE
--- NOTE | 2022-03-21 17:38 | PC.NURSE ---
Called house and notified her of admission. Will call back with a bed
--- NOTE | 2022-03-21 17:45 | PC.NURSE ---
SPOKE WITH PT'S DAUGHTER REGARDING PT'S ADMISSION
--- NOTE | 2022-03-21 18:10 | PC.NURSE ---
PT PULLED OUT IV. IV RESTARTED RT HAND #20
--- NOTE | 2022-03-21 18:17 | PC.NURSE ---
Patient called out saying she was bleeding. Patient had pulled out her IV. ANNETTE Ruiz notified. Patient also stated she need to use the bathroom. We got the patient a bedpan. Patient was on bedpan for a few minutes and stated she was not going to be able to use the bathroom that way and that she would wait until later. We took patient off bed bobo.
--- NOTE | 2022-03-21 18:24 | PC.NURSE ---
REPORT CALLED TO ABILIO BRYANT
--- NOTE | 2022-03-21 18:39 | PC.NURSE ---
Called travis to see if she could come to get patient since the nurse was not able to. Travis said she was busy with another nurse's patient at the moment and said that if the other nurse needed to come and get her she could unless she was busy as well. ANNETTE Ruiz notified
--- NOTE | 2022-03-21 18:45 | PC.NURSE ---
2ND IV STARTED LT HAND #20
--- NOTE | 2022-03-21 18:46 | PC.NURSE ---
Pt arrived to the floor at this time.
[2022-03-21 20:03] LABS: Troponin I 0.03 ng/ml (0.00-0.034)
[2022-03-21 23:58] LABS: Troponin I 0.03 ng/ml (0.00-0.034)
[2022-03-22] VITALS (26 sets, daily range): BP systolic 111–166; BP diastolic 66–114; PULSE 80–116; RESP 18–31; TEMP 36.4–37.1; O2SAT 90–98; BMI 29.9
--- NOTE | 2022-03-22 04:56 | PC.NURSE ---
pt has rested t/o shift, on 2L NC O2 currently, weaned down from 3L, current sat 94%, HR has been 80-112, SBP 153-176, Nitro currently at 60, pt has had no complaints of CP or SOA, has ambulated with standby assist to BR, attempted to do med rec with patient a couple of times this shift, pt states the number of pills she takes morning and night but unable to verify what she is taking, stated daughter knew her meds but is at work at this time
--- NOTE | 2022-03-22 07:44 | PC.NURSE ---
HTN continues with SBP 150-160. Nitroglycerin gtt increased to 100mcg. Pt denies CP and any other complaints at this time. Afib with rate 100-110 continues on tele.
--- NOTE | 2022-03-22 07:54 | HMH.HP ---
*Admission Date: 03/22/22 *Chief complaint: conusion/hypertension/dyspnea *History of present illness: 86-year-old white female with multiple medical problems including chronic kidney disease stage IV, diastolic CHF with preserved ejection fraction, pedal edema, atrial dysrhythmias and chronic hypertension who has been at home in her normal state of somewhat compromised health over the past months, but his daughter has noticed over the past 3 to 4 days that her blood pressure has been elevating. Blood pressure was noted to be in the 180/190 range over the past couple of days. She is been increasingly short of air and somewhat confused and she was brought to the emergency department last night. ER work-up revealed elevated blood pressure, stable kidney function, elevated BNP and some atelectatic infiltrates in the chest x-ray but normal white count and no other evidence of infection. She was admitted on nitro drip and Bumex infusion for diuresis and addressing her malignant hypertension respectively. [facility] History I have reviewed the patient's past medical history: Yes Medical History: Reports:: Anxiety, Arrhythmia, Atrial Fibrillation, Congestive Heart Failure, Coronary Artery Disease, Depression, Heart Murmur, Hyperlipidemia, Hypertension, Renal Disease Denies:: Cancer, Diabetes Mellitus Type 1, Diabetes Mellitus Type 2, MRSA *Have you ever received a pneumonia vaccine?: Yes *Have you received a flu vaccine this season?: No Other Medical History: Reports: Anemia, Arthritis, Hormone Therapy, Hypothyroidism, Radiation Therapy Laterality Cases: Left: Breast Biopsy, Lumpectomy, Right: Total Hip Replacement Other Surgeries: Yes: Colonoscopy, Other Amputation: No Fractures: No - *Social History Smoking Status: Former smoker Tobacco Type: cigarettes Alcohol Intake: never Alcohol Intake Frequency:: holidays/special occasions only Substance Use Type: denies use *Occupational Status:: retired Housing: apartment Household Members: family *Travel in the last 8 weeks: None - Psychiatric History Pschychiatric History:: Reports:: Anxiety, Depression Family Hx:: Anemia, Cancer, Diabetes, Hyperlipidemia, Hypertension, Kidney Disease, Stroke, Thyroid Disorder [employer] history: No [employer] history Review of Systems - Review of Systems Review of systems:: pertinent systems reviewed and negative unless documented below Patient continues to report some dyspnea but notes that it is better. Notes that she had 2 very large urine output episode yesterday. - *Neurologic Denies localized weakness, Denies headache(s) Meds Home Medications Medication Instructions Recorded Confirmed Type apixaban 2.5 mg tablet 2.5 mg PO BID 11/03/18 03/21/22 History Levothyroxine Sodium 25 mcg PO DAILY 03/01/20 03/21/22 History [Levothyroxine 25mcg (0.025mg) Tab] Omeprazole [Omeprazole 20mg 20 mg PO DAILY 12/01/20 03/21/22 History Capsule] Bumetanide [Bumex 1mg tablet] 1 mg PO DAILY 03/21/21 03/21/22 History Isosorbide Mononitrate [Imdur 30mg 30 mg PO DAILY 03/21/21 03/21/22 History ER tablet] carvediloL [Coreg 25mg Tablet] 25 mg PO BID #0 03/22/21 03/21/22 Rx Metoprolol Succinate [Metoprolol 25 mg PO BID 11/05/21 03/21/22 History Succinate 50mg Tablet*] PARoxetine HCl [Paxil] 20 mg PO DAILY 11/05/21 03/21/22 History Allergies Allergy/AdvReac Type Severity Reaction Status Date / Time iodine [IODINE] Allergy Severe S-ANAPHYLAX Verified 05/02/20 11:32 IS Sulfa (Sulfonamide Allergy Severe I-HIVES Verified 05/02/20 11:32 Antibiotics) [SULFA (SULFONAMIDE ANTIBIOTICS)] Penicillins [PENICILLINS] Allergy Intermediate I-RASH Verified 05/02/20 11:32 codeine [CODEINE] Allergy Unknown NA-HALLUCIN Verified 05/02/20 11:32 ATIONS hydrogen peroxide Allergy Unknown Verified 05/02/20 11:32 Exam Vital signs and Labs for Last 24 Hours: Temp Pulse Resp BP Pulse Ox 98.1 F 106 H 20 162/100 H 94 L 03/22/22 04:00
[2022-03-22 08:04] LABS: Anion Gap 8.5 mEq/L (5-15); Blood Urea Nitrogen 22 mg/dl (7-17); Calcium 8.7 mg/dl (8.4-10.2); Carbon Dioxide 29 mmol/L (22.0-30.0); Chloride 106 mmol/L (98-107); Creatinine Clearance Estimated 33 mL/min (50-200); Estimated Glomerular Filt Rate 28 ml/min (>60); GFR (African American) 34 ML/MIN (>60); Glucose 114 mg/dl (74-100); Potassium 4.5 mmoL/L (3.5-5.1); Sodium 139 mmol/L (136-145)
--- NOTE | 2022-03-22 08:44 | P.CONPHA_ITS ---
[facility] Pharmacy VTE Monitoring - Patient Demographics Admission date: 03/22/22 Report Date: 03/22/22 Time: 08:44 Allergies/Adverse Reactions: Patient Allergies iodine [IODINE] Allergy (Severe, Verified 05/02/20 11:32) S-ANAPHYLAXIS Sulfa (Sulfonamide Antibiotics) [SULFA (SULFONAMIDE ANTIBIOTICS)] Allergy (Severe, Verified 05/02/20 11:32) I-HIVES Penicillins [PENICILLINS] Allergy (Intermediate, Verified 05/02/20 11:32) I-RASH codeine [CODEINE] Allergy (Unknown, Verified 05/02/20 11:32) NA-HALLUCINATIONS hydrogen peroxide Allergy (Unknown, Verified 05/02/20 11:32) Height: 1.7 m Weight: 86.693 kg Patient Problems: Current Active Problems Congestive heart disease (Acute) Hypertensive emergency (Acute) Respiratory failure with hypoxia (Acute) - VTE Risk Labs: VTE Related Lab Results Hgb 10.4 g/dL (12.2-16.2) L 03/21/22 16:40 Hct 34.8 % (37.0-47.0) L 03/21/22 16:40 Plt Count 245 K/mm3 (142-424) 03/21/22 16:40 BUN 22 mg/dl (7-17) H 03/22/22 07:30 Creatinine 1.70 mg/dl (0.52-1.04) H 03/22/22 07:30 Estimated Creat Clear 33 mL/min (50-200) 03/22/22 07:30 Was VTE Risk Assessment Performed: Yes VTE Score: 9 VTE Risk Level: Moderate Risk Clinical Trial Participant: No - Prophylaxis VTE Prophylaxis Ordered?: Yes Types of VTE Prophylaxis: TEDS Knee High, Pharmacological (ELIQUIS) Pharmacologic Type: Other
--- NOTE | 2022-03-22 08:46 | HMH.PHAINT ---
[facility]
--- NOTE | 2022-03-22 12:00 | PC.NURSE ---
increased pts O2 to 3L. sat now 96%
--- NOTE | 2022-03-22 13:30 | PC.NURSE ---
BP 118/68. Nitroglycerin gtt decreased to 75mcg/min
--- NOTE | 2022-03-22 13:53 | PC.NURSE ---
Rounded on pt, cleaned and straightened room. Pt asleep in bed at this time.
--- NOTE | 2022-03-22 14:00 | PC.NURSE ---
BP 111/66. Nitroglycerin gtt decreased to 50mcg/min
--- NOTE | 2022-03-22 16:30 | PC.NURSE ---
BP 140/104 (116). Nitroglycerin gtt increased to 75mcg/min
--- NOTE | 2022-03-22 17:30 | PC.NURSE ---
BP 126/107 (113) and HR 110-120. Nitroglycerin gtt increased to 100mcg/min
--- NOTE | 2022-03-22 18:02 | PC.NURSE ---
shift summary: GCS 15. On 3L NC with O2 sat mid to high 90s. Afib uncontrolled on tele with rate 110-120s. HTN improving with Losartan and Nitroglycerin gtt. BP now 135/86. Pt without CP, n/v, and diaphoresis. C/o lightheadedness with ambulation to bathroom. 2+ pitting edema to BLE. No BM. Tolerates a cardiac diet. Daughter updated @ the BS today. Nitroglycerin gtt infusing @ 100mcg/min.
[2022-03-23] VITALS (10 sets, daily range): BP systolic 108–160; BP diastolic 38–99; PULSE 10–120; RESP 16–24; TEMP 36.6–36.7; O2SAT 92–97; BMI 29.5
[2022-03-23 06:45] LABS: Basophils % 0.9 % (0.1-2.0); Eosinophils # 0.1 K/mm3 (0.0-0.4); Eosinophils % 2.9 % (0.1-12.0); Hematocrit 30.1 % (37.0-47.0); Hemoglobin 9.3 g/dL (12.2-16.2); Lymphocytes # 0.6 K/mm3 (0.7-4.5); Lymphocytes % 15.4 % (10-50); Mean Corpuscular HGB Conc 30.9 g/dL (31.8-35.4); Mean Corpuscular Hemoglobin 28.4 pg (27.0-31.2); Mean Corpuscular Volume 91.7 fl (81-99); Mean Platelet Volume 7.4 fl (7.4-10.4); Monocytes # 0.5 K/mm3 (0.1-1.0); Monocytes % 11.2 % (1.7-9.3); Neutrophils # 2.8 K/mm3 (1.8-7.8); Neutrophils % 69.7 % (37.0-80.0); Platelet Count 204 K/mm3 (142-424); Red Blood Count 3.28 M/mm3 (4.20-5.40); White Blood Count 4.1 K/mm3 (4.8-10.8)
[2022-03-23 06:52] LABS: Alanine Aminotransferase 12 U/L (12-78); Albumin Level 2.9 g/dl (3.5-5.0); Albumin/Globulin Ratio 1.4 (1.1-1.8); Alkaline Phosphatase 154 U/L (38-126); Anion Gap 7.1 mEq/L (5-15); Aspartate Amino Transferase 17 U/L (14-36); Bilirubin,Total 0.4 mg/dl (0.2-1.3); Blood Urea Nitrogen 25 mg/dl (7-17); Calcium 8.7 mg/dl (8.4-10.2); Carbon Dioxide 30 mmol/L (22.0-30.0); Chloride 106 mmol/L (98-107); Creatinine Clearance Estimated 30 mL/min (50-200); Estimated Glomerular Filt Rate 27 ml/min (>60); GFR (African American) 32 ML/MIN (>60); Globulin 2.1 g/dL (1.3-3.2); Glucose 105 mg/dl (74-100); Potassium 4.1 mmoL/L (3.5-5.1); Sodium 139 mmol/L (136-145)
--- NOTE | 2022-03-23 07:53 | CA_ITS ---
APPROVED REPORT EXAM: Comprehensive 2D, Doppler, and color-flow Echocardiogram Referral Clerk: Juliana Mazariegos, CAITLYN, RVS Ht: 5 ft 5 in Wt: 188lbs BSA: 1.93 BP: 133/79 mmHg Indications: AFIB, HTN-emergency, CAD, CHF 2D Dimensions IVSd 1.15 cm LVEF (Visual) 48.80 % PWd 1.21 cm LA Volume 120.70 mL LVDd 5.50 cm LA Volume Index 62.437282 mL/m2 (M/F) 16-34 LVDs 4.13 cm Aortic Root 2.79 cm Left Atrium 4.37 cm LVOT 1.88 cm (M/F) 1.5-2.5 M-Mode Dimensions LA Diam 4.81 cm (1.9-4.0) Ao Diam 3.15 cm (2.0-3.7) EPSs 0.17 cm TAPSE 1.15 (<1.7) LV Diastology E Decel Time 100.00 (160-240 msec) E/A Ratio 1.38 MED E' 6.20 (< 7 cm/sec) MED A' 14.80 cm/s E'/MED E' Ratio 17.68 (>14) Aortic Valve LVOT Max 90.00 (70-110 cm/s) LVOT VTI 14.53 cm AoV Peak Moe. 175.00 (50-130 cm/s) AI PHT 274.00 ms AO Peak GR. 12.20 mmHg AO Mean GR. 7.20 (<5 mmHg) AO VTI 29.12 (18-25 cm) SERINA (VTI) 1.39 (2.5-4.5 cm2) Mitral Valve MV E Max Moe. 110.00 (40-130 cm/s) MV A Velocity 80.00 (40-130 cm/s) E/A Ratio 1.38 MV Decel. Time 100.00 (160-240 ms) MV PHT 29.00 ms Pulmonary Valve PV Peak Velocity 80.00 (50-150 cm/s) Tricuspid Valve TR P. Velocity 264.00 cm/s RAP Estimate 10.00 mmHg RVSP 37.80 mmHg Left Ventricle Left atrium is mildly enlarged, left ventricle is normal size, mild concentric left ventricular hypertrophy, estimated ejection fraction 50% with no regional wall motion abnormality, diastolic parameters are inconclusive. Right Ventricle Right atrium and right ventricle mildly enlarged with normal contractility. Aortic Valve Aortic valve is thickened and calcified without aortic stenosis, there is mild aortic insufficiency. Mitral Valve Mitral valve leaflets are minimally thickened, there is mild mitral regurgitation. Tricuspid Valve Tricuspid valve grossly normal, there is moderate tricuspid regurgitation, calculated right ventricular systolic pressure is 38 mmHg. Pulmonic Valve Pulmonic valve is poorly visualized. Great Vessels Aortic root is normal size. Inferior vena cava is not well visualized. Pericardium No significant pericardial effusion noted. Conclusion 1. Biatrial enlargement, normal left ventricular size, mild concentric left ventricular hypertrophy, estimated ejection fraction 50% with no regional wall motion abnormality, diastolic parameters are inconclusive. 2. Mildly enlarged right ventricle with normal contractility. 3. Mild aortic, mild mitral and moderate tricuspid regurgitation, calculated right ventricular systolic pressure 38 mmHg. 4. No significant pericardial effusion noted. 5. Inferior vena cava is poorly visualized. Electronically signed by : Carlos Monsivais MD 03/23/2022 14:35:27
--- NOTE | 2022-03-23 08:35 | HMH.ACPN2 ---
Internal Medicine - PN: Subj *Date: 03/23/22 *Time: 08:35 Interval history: Overnight patient is doing well, had some more output. Exam Vital signs and Labs for Last 24 Hours: Temp Pulse Resp BP Pulse Ox 97.8 F 96 H 23 142/90 H 96 03/23/22 04:00 03/23/22 06:00 03/23/22 06:00 03/23/22 06:00 03/23/22 06:00 Laboratory Results - last 24 hr 03/23/22 05:52: WBC 4.1 L, RBC 3.28 L, Hgb 9.3 L, Hct 30.1 L, MCV 91.7, MCH 28.4, MCHC 30.9 L, RDW 16.0, Plt Count 204, MPV 7.4, Neut % (Auto) 69.7, Lymph % (Auto) 15.4, [place] % (Auto) 11.2 H, Eos % (Auto) 2.9, Baso % (Auto) 0.9, Neut # (Auto) 2.8, Lymph # (Auto) 0.6 L, [place] # (Auto) 0.5, Eos # (Auto) 0.1, Baso # (Auto) 0.0 03/23/22 05:52: Sodium 139, Potassium 4.1, Chloride 106, Carbon Dioxide 30, Anion Gap 7.1, BUN 25 H, Creatinine 1.80 H, Estimated Creat Clear 30, Estimated GFR 27 L, Est GFR ( Amer) 32 L, Glucose 105 H, Calcium 8.7, Total Bilirubin 0.4, AST 17 D, ALT 12, Alkaline Phosphatase 154 H, Total Protein 5.0 L, Albumin 2.9 L, Globulin 2.1, Albumin/Globulin Ratio 1.4 I & O for Last 24 hours: Intake & Output 03/20/22 03/21/22 03/22/22 03/23/22 11:59 11:59 11:59 11:59 Intake Total 396.9 / 396.9 999 / 999 Output Total 400 / 400 Balance 396.9 / 396.9 599 / 599 Weight 191 lb 2 oz 188 lb 9 oz - Constitutional no acute distress - *Routine HEENT Exam Head: Present: normocephalic Eye: Present: EOMI, PERRL ENT: Present: mucous membranes moist - *Routine Neck Exam Present: supple. Absent: lymphadenopathy - *Routine Respiratory Exam Present: CTA bilaterally - *Routine Cardiovascular Exam Present: murmur, irregular rhythm - *Routine Abdominal Exam Present: soft, normoactive bowel sounds. Absent: tenderness - *Routine Extremities Exam Present: edema. Absent: cyanosis, clubbing Comments: trace edema - *Routine Skin Exam Present: warm. Absent: rash - *Routine Neurological Exam Present: alert, oriented X3 Assessment and Plan (1) Congestive heart disease Status: Acute Qualifiers: Heart failure type: unspecified Heart failure chronicity: acute on chronic Qualified Code(s): I50.9 - Heart failure, unspecified Category: Medical Code(s): I50.9 - Heart failure, unspecified (2) Hypertensive emergency Status: Acute Category: Medical Code(s): I16.1 - Hypertensive emergency - Assessment and plan all Dx Assessment and Plan for all problems:: 1. Improved functional status and blood pressure. Try to wean off nitro drip today. Add calcium channel sandra. Patient tolerating ARB well yesterday. Creatinine unchanged. 2. PT/OT evaluation once off nitro drip. 3. Mild desaturation when she gets up and around. Another dose of Lasix today. Follow labs tomorrow. 4. Echo with reduced ejection fraction-may be a good Entresto candidate on discharge.
--- NOTE | 2022-03-23 11:01 | PC.NURSE ---
Nitro drip at 100mcg at start of shift, decreased to 75mcg at 0925. turned off per order for aggressive titration at 1000
--- NOTE | 2022-03-23 11:44 | HMH.PTEV ---
Physical Therapy Evaluation Rehab PT IP Evaluation Start: 03/23/22 08:35 Freq: ONCE Status: Active Protocol: Document 03/23/22 11:41 PHORNE (Rec: 03/23/22 11:44 PHORNE [id number]) Subjective/History History History 86 yowf adm to [facility] with significantly increased HTN. SHe reports she lives alone, no steps to enter the home and she is generally independent with all mobility using a cane for ambulation. Subjective Subjective Pt with no c/o this am, I feel a lot better. Rehab PT IP Eval Objective Appearance Patient Behavior Appropriate Patient Orientation Person,Place,Time Difficulty following instructions none Speech Pattern Clear Ambulation Patient Able to Ambulate Yes Ambulation Observation IP General Gait Pattern Observation No Deviations/Normal Ambulation Distance (feet) 30 Ambulation Assistive Device None Ambulation Ability Contact Guard/Hand Hold Balance Ability to Arise Able, uses arms to help Sitting Balance Steady, safe Standing Balance Steady, wide stance Dynamic Sitting Balance Ability Good Dynamic Standing Balance Ability Good Transfers Bed Transfer Ability Contact Guard/Hand Hold Chair Transfer Ability Contact Guard/Hand Hold Sit to Stand Bed Transfer Ability Contact Guard/Hand Hold Sit to Stand Chair Transfer Ability Contact Guard/Hand Hold Rehab PT IP prob,goals,plan Problems Date of Evaluation: 03/23/22 PT IP Problems Bed Mobility,Transfers,Gait, Self care Rehab Potential Rehab Potential Good Plan PT Intervention Plan Bed Mobility,Transfers,Gait, Self care,Therapeutic Exercise PT Plan Frequency BID Duration LOS Discharge Goals Bed Transfer Ability Supervision/Stand by Sit to Stand Chair Transfer Ability Supervision/Stand by Ambulation Distance (feet) 50 Discharge Plan PT Discharge Plan Pt is appropriate to return home once medically stable. G -code Required No Eval Complexity Eval Charge Codes 38665 - Moderate Complexity PHYSICIAN CERTIFICATION: I certify the specified therapy services for Aileen Bassett are required, authorized, and reviewed every 30 days.
--- NOTE | 2022-03-23 12:39 | HMH.OTEV ---
OT Inpatient Evaluation Rehab OT IP Evaluation Start: 03/23/22 08:35 Freq: ONCE Status: Complete Protocol: Document 03/23/22 11:55 HEMALDANIEL (Rec: 03/23/22 12:38 RAFA [id number]) Rehab OT IP Assessment Subjective History 86-year-old white female with multiple medical problems including chronic kidney disease stage IV, diastolic CHF with preserved ejection fraction, pedal edema, atrial dysrhythmias and chronic hypertension who has been at home in her normal state of somewhat compromised health over the past months, but his daughter has noticed over the past 3 to 4 days that her blood pressure has been elevating. Blood pressure was noted to be in the 180/190 range over the past couple of days. She is been increasingly short of air and somewhat confused and she was brought to the emergency department last night. ER work-up revealed elevated blood pressure, stable kidney function, elevated BNP and some atelectatic infiltrates in the chest x-ray but normal white count and no other evidence of infection. She was admitted on nitro drip and Bumex infusion for diuresis and addressing her malignant hypertension respectively. [facility] History I have reviewed the patient's past medical history: Yes Medical History: Reports:: Anxiety, Arrhythmia, Atrial Fibrillation, Congestive Heart Failure, Coronary Artery Disease, Depression, Heart Murmur, Hyperlipidemia, Hypertension, Renal Disease Patient lives alone in 1 story apartment. Independent with ADLs and fx'l mob
--- NOTE | 2022-03-23 13:17 | PC.NURSE ---
[address] Pride that the pt sbp has remained below 130's since 1000, when nitro drip was stopped. clarified with Dr Pride that it is ok to put in order to dc nitro drip and that it is ok to take pt out of step down. 1224 ok to dc nitro and move out of sd status.
--- NOTE | 2022-03-23 15:52 | PC.NURSE ---
pt has been very active this shift. she calls for assistance to go to restroom and to return to bed. pt is alert and oriented, she does not ambulate with an assistive devices although she does not have a steady gait. this was mentioned to PT during assessment. lungs are clear, bowel sounds are active in all quads.
[2022-03-24] VITALS: BP 142/75; PULSE 89; PULSE 95; RESP 20; TEMP 36.7; O2SAT 92
[2022-03-24 04:00] VITALS: BP 144/57; PULSE 84; PULSE 99; RESP 20; TEMP 36.4; O2SAT 96
[2022-03-24 05:00] VITALS: BMI 28.1
--- NOTE | 2022-03-24 05:17 | PC.NURSE ---
pt rested well this shift, pt is hopeful to go home today, pt called daughter last night and updated on poc and made sure to have a ride today in case able to go home, pt's VSS, BP WNL, pt in afib throughout shift, pt ambulating to and from bathroom with standby assist and adequate UOP
[2022-03-24 06:17] LABS: Basophils % 0.9 % (0.1-2.0); Eosinophils # 0.1 K/mm3 (0.0-0.4); Eosinophils % 3.3 % (0.1-12.0); Hematocrit 33.4 % (37.0-47.0); Lymphocytes # 0.6 K/mm3 (0.7-4.5); Lymphocytes % 16.4 % (10-50); Mean Corpuscular HGB Conc 30.8 g/dL (31.8-35.4); Mean Corpuscular Hemoglobin 28.1 pg (27.0-31.2); Mean Corpuscular Volume 91.2 fl (81-99); Mean Platelet Volume 7.4 fl (7.4-10.4); Monocytes # 0.4 K/mm3 (0.1-1.0); Monocytes % 11.5 % (1.7-9.3); Neutrophils # 2.5 K/mm3 (1.8-7.8); Neutrophils % 67.9 % (37.0-80.0); Platelet Count 216 K/mm3 (142-424); Red Blood Count 3.66 M/mm3 (4.20-5.40); Red Cell Distribution Width 15.8 % (11.5-17.5); White Blood Count 3.7 K/mm3 (4.8-10.8)
[2022-03-24 06:24] LABS: Hemoglobin 10.2 g/dL (12.2-16.2)
[2022-03-24 06:26] LABS: Alanine Aminotransferase 11 U/L (12-78); Albumin Level 3.2 g/dl (3.5-5.0); Albumin/Globulin Ratio 1.4 (1.1-1.8); Alkaline Phosphatase 163 U/L (38-126); Aspartate Amino Transferase 16 U/L (14-36); Bilirubin,Total 0.4 mg/dl (0.2-1.3); Blood Urea Nitrogen 30 mg/dl (7-17); Calcium 9.2 mg/dl (8.4-10.2); Carbon Dioxide 35 mmol/L (22.0-30.0); Chloride 102 mmol/L (98-107); Creatinine Clearance Estimated 26 mL/min (50-200); Estimated Glomerular Filt Rate 24 ml/min (>60); GFR (African American) 29 ML/MIN (>60); Globulin 2.3 g/dL (1.3-3.2); Glucose 94 mg/dl (74-100); Sodium 140 mmol/L (136-145); Total Protein,Serum 5.5 g/dl (6.3-8.2)
[2022-03-24 07:39] VITALS: BP 136/71; PULSE 99; RESP 24; TEMP 37.1; O2SAT 96
[2022-03-24 08:00] VITALS: PULSE 102
--- NOTE | 2022-03-24 08:17 | HMH.DCSUM ---
General - General Admission date:: 03/21/22 Discharge date: 03/24/22 HPI HPI: 86-year-old white female with multiple medical problems including chronic kidney disease stage IV, diastolic CHF with preserved ejection fraction, pedal edema, atrial dysrhythmias and chronic hypertension who has been at home in her normal state of somewhat compromised health over the past months, but his daughter has noticed over the past 3 to 4 days that her blood pressure has been elevating. Blood pressure was noted to be in the 180/190 range over the past couple of days. She is been increasingly short of air and somewhat confused and she was brought to the emergency department last night. ER work-up revealed elevated blood pressure, stable kidney function, elevated BNP and some atelectatic infiltrates in the chest x-ray but normal white count and no other evidence of infection. She was admitted on nitro drip and Bumex infusion for diuresis and addressing her malignant hypertension respectively. Hospital Course Hospital Course: Patient was admitted, found to have malignant hypertension. Nitro drip started in the ER. The following day we started losartan which did improve her blood pressure reading in the 160s. The next day nifedipine was started and patient responded very well to this combination. She also was diuresed with good urine output. Creatinine was watched carefully given her stage IV chronic kidney disease and her creatinine is essentially stable (between 1.8-2.0. This morning she was doing well, had been off nitro drip for over 48 hours. Blood pressure was well controlled in the 140s. Pulse rate is in the mid to low 90s. Is much better and breathing is better. She is on her stable dose of home oxygen. Plan to discharge patient home today. She will be started on losartan and nifedipine. I will follow her in 48 hours in the [facility] in [place]. We will consider Entresto at that point given the fact that she has systolic heart failure-heart failure with reduced ejection fraction-with a EF of 45%. I will discuss that with her daughter who manages her medications. Objective Vital signs: Temp Pulse Resp BP Pulse Ox 98.8 F 99 H 24 136/71 96 03/24/22 07:39 03/24/22 07:39 03/24/22 07:39 03/24/22 07:39 03/24/22 07:39 no acute distress - *Routine HEENT Exam Head: Present: normocephalic Eye: Present: EOMI, PERRL ENT: Present: mucous membranes moist - *Routine Neck Exam Present: supple - *Routine Respiratory Exam Present: CTA bilaterally - *Routine Cardiovascular Exam Present: RRR, murmur - *Routine Abdominal Exam Present: soft, normoactive bowel sounds. Absent: tenderness - *Routine Extremities Exam Present: edema. Absent: cyanosis, clubbing Comments: 1+ ankle edema to mid miguel at baseline - *Routine Skin Exam Present: warm. Absent: rash - *Routine Neurological Exam Present: alert, oriented X3 Mild memory impairment vis-?-vis medications and date - Detailed Eye Exam Eyelids: Bilateral normal inspection Results Labs on day of discharge: Labs from last 24 hours 03/24/22 03/24/22 05:50 05:50 WBC 3.7 L RBC 3.66 L Hgb 10.2 L Hct 33.4 L MCV 91.2 MCH 28.1 MCHC 30.8 L RDW 15.8 Plt Count 216 MPV 7.4 Neut % (Auto) 67.9 Lymph % (Auto) 16.4 [place] % (Auto) 11.5 H Eos % (Auto) 3.3 Baso % (Auto) 0.9 Neut # (Auto) 2.5 Lymph # (Auto) 0.6 L [place] # (Auto) 0.4 Eos # (Auto) 0.1 Baso # (Auto) 0.0 Sodium 140 Potassium 4.0 Chloride 102 Carbon Dioxide 35 H Anion Gap 7.0 BUN 30 H Creatinine 2.00 H Estimated Creat Clear 26 Estimated GFR 24 L Est GFR ( Amer) 29 L Glucose 94 Calcium 9.2 Total Bilirubin 0.4 AST 16 ALT 11 L Alkaline Phosphatase 163 H Total Protein 5.5 L Albumin 3.2 L D Globulin 2.3 Albumin/Globulin Ratio 1.4 DS: Diagnosis - Discharge Diagnosis (1)
--- NOTE | 2022-03-24 08:52 | PC.NURSE ---
daughter is working today. Pt is attempting to find a ride home as she now has discharge orders
--- NOTE | 2022-03-24 09:08 | HMH.PHAINT ---
DISCHARGE MEDICATION COUNSELING PROVIDED. DISCUSSED THE FOLLOWING NEW MEDICATIONS: -NIFEDIPINE (DAILY, FOR BP, WATCH FOR DIZZINESS, LIGHTHEADEDNESS, HEADACHE, OR LOWER LEG SWELLING) -IRBESARTAN (DAILY, FOR BP, WATCH FOR DIZZINESS, LIGHTHEADEDNESS, HEADACHE, HIGH BLOOD POTASSIUM [FLUTTERING IN CHEST, MUSCLE PAIN]) PATIENT HAD NO QUESTIONS AT THIS TIME.
--- NOTE | 2022-03-24 13:00 | PC.NURSE ---
pt's ride arrived at 1pm
--- NOTE | 2022-03-25 13:00 | CARE MANAGER ---
Contacted patient's daughter who states she is doing well since discharge. They picked up medications and have follow up appt. tomorrow that they are aware of. Deny any questions or concerns at this time. ANNETTE Matthews
== END 2022-03-24 13:00 | disposition home or self-care (01) | DRG 291 ==
LOC: ER 17:33 → 2ND 03-22 00:42
PROVIDERS: Admitting Provider Internal Medicine Adolescent Medicine; Emergency Provider Emergency Medicine; Visit Provider Internal Medicine Adolescent Medicine
DX: I13.0 Hypertensive heart and chronic kidney disease with heart failure and stage 1 through stage 4 chronic kidney disease, or unspecified chronic kidney disease (principal); I50.23 Acute on chronic systolic (congestive) heart failure; J96.21 Acute and chronic respiratory failure with hypoxia; I16.1 Hypertensive emergency; N18.4 Chronic kidney disease, stage 4 (severe); I48.20 Chronic atrial fibrillation, unspecified; F41.9 Anxiety disorder, unspecified; I25.10 Atherosclerotic heart disease of native coronary artery without angina pectoris; E78.5 Hyperlipidemia, unspecified; Z87.891 Personal history of nicotine dependence; Z99.81 Dependence on supplemental oxygen
CPT/HCPCS: 36415; 71045; 80048; 80053; 83880; 84484; 85025; 93306; 97116; 97162; 97165; 97530; 99291; C9803; U0003; U0005

== ENCOUNTER → 2022-06-02 14:49 | Outpatient (POV) | payer MEDICARE, MEDICAID, SELFPAY | PROVIDERS: Visit Provider Dermatology | DX: Z00.00 Encounter for general adult medical examination without abnormal findings (principal) ==

== ENCOUNTER 2022-12-29 09:51 | Inpatient (IN) | payer MEDICARE, MEDICAID, SELFPAY ==
[2022-12-29] VITALS (13 sets, daily range): BP systolic 105–196; BP diastolic 68–133; PULSE 111–131; RESP 16–30; TEMP 36.6–36.8; O2SAT 87–97; BMI 33.3; BMI 33.0
--- NOTE | 2022-12-29 09:55 | ECG_ITS ---
APPROVED REPORT Exam: Resting ECG HR:116 bpm ECG Measurements Heart Rate 116 AXES QRSd 91 QRS 65 QT 308 T 30 QTc 377 Conclusion ATRIAL FIBRILLATION WITH RAPID VENTRICULAR RESPONSE MODERATE ST DEPRESSION [0.05+ mV ST DEPRESSION] ABNORMAL ECG UNCONFIRMED REPORT Electronically signed by : Jeremy Pride MD 12/29/2022 19:36:25
--- NOTE | 2022-12-29 09:57 | PC.NURSE ---
ER at for pt eval; Daughter at BS
--- NOTE | 2022-12-29 10:01 | XR_ITS ---
FINAL REPORT CLINICAL HISTORY: soa COMPARISON: 03/21/2022 FINDINGS: A single view of the chest was obtained. There is cardiomegaly. Mild pulmonary vascular congestion is noted. Mild left basilar opacity may represent atelectasis or pneumonia. A small left pleural effusion is present. There is no pneumothorax. Postoperative changes are seen in the right lateral chest wall. Degenerative changes are seen in both shoulders. IMPRESSION: Mild left basilar opacity may represent atelectasis or pneumonia with a small left pleural effusion. Reviewed, Interpreted and Dictated by Sinan Abrams III, MD Transcribed by Lacy Lamas Authenticated and [facility]
--- NOTE | 2022-12-29 10:03 | PC.NURSE ---
pt placed on 2L NC, room air sat 87%
--- NOTE | 2022-12-29 10:04 | PC.NURSE ---
notified RT of vbg order, spoke with jorge
--- NOTE | 2022-12-29 10:05 | PC.NURSE ---
pts daughter reports pt saw dr. smith in [place] office last week for routine visit, states had lab work done in the office. states bumex was stopped after lab work resulted from this visit r/t worsening kidney function
--- NOTE | 2022-12-29 10:05 | PC.NURSE ---
Covid/flu swab sent to lab; pt unable to void at this time.
--- NOTE | 2022-12-29 10:08 | HMH.EDGENADL ---
Discharge Plan Disposition Patient Disposition: Admitted As Inpatient Chief Complaint: Weakness Prescriptions Prescriptions: No Action carvedilol 25 mg tablet 12.5 mg PO BID Rx Instructions: 1/2 tab bid paroxetine HCl 20 mg tablet 20 mg PO DAILY 90 Days Qty: 90 0RF isosorbide mononitrate 30 mg tablet extended release 24 hr 30 mg PO DAILY 90 Days Qty: 90 0RF levothyroxine 25 mcg tablet 25 mcg PO DAILY Rx Instructions: TAKE 1 TABLET BY MOUTH ONCE DAILY Eliquis 2.5 mg tablet 2.5 mg PO BID Rx Instructions: TAKE 1 TABLET BY MOUTH TWICE DAILY omeprazole 20 MG capsule,delayed release(DR/EC) 20 mg PO DAILY Referrals Follow up/Referrals: Provider,Referral, MD [Referring] - See instructions Clinical Impressions Clinical Impression: Pneumonia Discharge ED Provider: Joe Alberto General Adult HPI General Chief complaint: Weakness Stated complaint: Weakness Time Seen by Provider: 12/29/22 10:00 Mode of Arrival: EMS Source of Information: Patient and EMS Limitations: No Limitations Description of Symptoms (Recalled from ER Triage Doc. by RN): pt brought in via EMS for weakness. pts daughter is medic, she went to check on daughter this am, attempted to get pt out of bed, pt was unable to get out of bed by herself. pt is normally independant functioning. History of Present Illness HPI narrative: 87-year-old female with history of A-fib, hypertension, CHF, CKD CAD presents with generalized weakness. According to her daughter who is a tin roller hot mill this has been progressively getting worse over the last week then today she called and said she was too weak to move. She had mild nausea however no abdominal pain chest pain or difficulty breathing. No known cough. She was recently taken off of her Bumex for worsening CKD. She is on apixaban and carvedilol day off for A-fib. Related Data Home Medications Medication Instructions Recorded Confirmed omeprazole 20 mg capsule,delayed 20 mg PO DAILY acid reflux 12/01/20 12/29/22 release carvedilol 25 mg tablet 12.5 mg PO BID Hypertension 04/23/22 12/29/22 apixaban 2.5 mg tablet (Eliquis) 2.5 mg PO BID blood thinner hx of 12/29/22 12/29/22 afib levothyroxine 25 mcg tablet 25 mcg PO DAILY thyroid 12/29/22 12/29/22 Previous Rx's Medication Instructions Recorded paroxetine HCl 20 mg tablet 20 mg PO DAILY Depression 90 days 04/08/22 #90 tabs isosorbide mononitrate 30 mg 30 mg PO DAILY Hypertension 90 05/22/22 tablet,extended release 24 hr days #90 tabs Allergies Allergy/AdvReac Type Severity Reaction Status Date / Time iodine [IODINE] Allergy Severe S-ANAPHYLAX Verified 05/07/22 09:35 IS Sulfa (Sulfonamide Allergy Severe I-HIVES Verified 05/07/22 09:35 Antibiotics) [SULFA (SULFONAMIDE ANTIBIOTICS)] Penicillins [PENICILLINS] Allergy Intermediate I-RASH Verified 05/07/22 09:35 codeine [CODEINE] Allergy Unknown NA-HALLUCIN Verified 05/07/22 09:35 ATIONS hydrogen peroxide Allergy Unknown Verified 05/07/22 09:35 [facility] Disclaimer: The information contained in this section may have been updated after the patient was seen, as this information can be updated by other users. Medical History (Updated 12/29/22 @ 11:36 by Joe Alberto MD) Acquired hypothyroidism Acute hypoxemic respiratory failure Acute on chronic diastolic CHF (congestive heart failure) Anemia requiring transfusions Anticoagulated on Coumadin Aortic stenosis Atrial fibrillation CAD (coronary artery disease) Cellulitis of left ring finger Chronic anemia CKD (chronic kidney disease) Concussion without loss of consciousness Congestive heart disease COPD (chronic obstructive pulmonary disease) COPD (chronic obstructive pulmonary disease) with acute bronchitis Diverticulitis Facial contusion Gangrene of finger of left hand Gastroenteritis Head contusion Hypotensive episode Hypoxia Junctional bradycardia Normal co
[2022-12-29 10:09] LABS: Coronavirus 19, PCR Not Detected (NotDetected); Influenza A, PCR Not Detected (NotDetected); Influenza B, PCR Not Detected (NotDetected)
[2022-12-29 10:11] LABS: Chloride 112 mmol/L (98-107); Potassium 4.6 mmoL/L (3.5-5.1); Sodium 140 mmol/L (136-145)
[2022-12-29 10:14] LABS: VBG Base Excess -8.5 mmol/L (-2.4-2.3); VBG PCO2 46.6 mmol/L (35-51); VBG PH 7.23 mmol/L (7.31-7.41); VBG PO2 51.2 mmol/L (28-40); VBG Total CO2 20.5 mmol/L (23-27)
[2022-12-29 10:14] LABS: Alanine Aminotransferase 14 U/L (12-78); Albumin Level 3.5 g/dl (3.5-5.0); Albumin/Globulin Ratio 1.5 (1.1-1.8); Alkaline Phosphatase 212 U/L (38-126); Anion Gap 10.6 mEq/L (5-15); Aspartate Amino Transferase 18 U/L (14-36); Bilirubin,Total 0.5 mg/dl (0.2-1.3); Blood Urea Nitrogen 22 mg/dl (7-17); Calcium 8.9 mg/dl (8.4-10.2); Carbon Dioxide 22 mmol/L (22.0-30.0); Creatinine Clearance Estimated 27 mL/min (50-200); Estimated Glomerular Filt Rate 22 ml/min (>60); GFR (African American) 27 ML/MIN (>60); Globulin 2.4 g/dL (1.3-3.2); Glucose 104 mg/dl (74-100); Total Protein,Serum 5.9 g/dl (6.3-8.2)
[2022-12-29 10:18] LABS: Basophils % 0.6 % (0.1-2.0); Eosinophils # 0.1 K/mm3 (0.0-0.4); Eosinophils % 2.7 % (0.1-12.0); Hematocrit 30.6 % (37.0-47.0); Hemoglobin 9.3 g/dL (12.2-16.2); Lymphocytes # 0.7 K/mm3 (0.7-4.5); Lymphocytes % 12.9 % (10-50); Mean Corpuscular HGB Conc 30.3 g/dL (31.8-35.4); Mean Corpuscular Hemoglobin 25.8 pg (27.0-31.2); Mean Corpuscular Volume 85.3 fl (81-99); Mean Platelet Volume 7.8 fl (7.4-10.4); Monocytes # 0.4 K/mm3 (0.1-1.0); Monocytes % 7.4 % (1.7-9.3); Neutrophils # 4.1 K/mm3 (1.8-7.8); Neutrophils % 76.4 % (37.0-80.0); Platelet Count 253 K/mm3 (142-424); Red Blood Count 3.58 M/mm3 (4.20-5.40); Red Cell Distribution Width 17.9 % (11.5-17.5); White Blood Count 5.4 K/mm3 (4.8-10.8)
[2022-12-29 10:24] LABS: NT Pro Brain Natriuretic Pep. 12300 pg/mL (0-450)
[2022-12-29 10:27] LABS: Troponin I 0.02 ng/ml (0.00-0.034)
--- NOTE | 2022-12-29 10:39 | PC.NURSE ---
notified nurse of bp and heart rate
[2022-12-29 10:45] LABS: Thyroid Stimulating Hormone 2.64 uIU/mL (0.465-4.68)
[2022-12-29 11:05] LABS: Microscopic, Urine URINE MICROSCOPIC (MICROSCOPIC)
[2022-12-29 11:19] LABS: Appearance,Urine CLEAR (Clear); Bilirubin,Urine Negative (Negative); Blood, Urine Negative (Negative); Color,Urine YELLOW (Yellow); Glucose,Urine (UA) Negative (Negative); Ketones,Urine Negative (Negative); Leukocyte Esterase,Urine Negative (Negative); Nitrate,Urine Negative (Negative); Protein,Urine 1+ (Negative); Specific Gravity, Urine 1.025 (1.005-1.030); Urobilinogen,Urine 0.2 EU/dl (0.2)
--- NOTE | 2022-12-29 11:41 | PC.NURSE ---
[facility]URN speaking with dr. smith
--- NOTE | 2022-12-29 11:42 | PC.NURSE ---
notified care management of admission
[2022-12-29 11:44] LABS: Bacteria,Urine Trace /lpf; Squamous Epithelial Cell,Urine Occasional #/hpf (0-5); WBC,Urine Occasional #/hpf (0-3)
[2022-12-29 12:17] LABS: Lactic Acid 0.8 mmol/L (0.7-2.1)
[2022-12-29 13:46] LABS: Troponin I 0.01 ng/ml (0.00-0.034)
[2022-12-29 16:40] LABS: Troponin I 0.02 ng/ml (0.00-0.034)
--- NOTE | 2022-12-29 19:42 | EXP.HP ---
History of Present Illness *Admission Date: 12/29/22 *Reason for visit:: Dizziness, weakness, cough *History of present illness: 87-year-old female with history of CHF and hypertension as well as paroxysmal A-fib who presented to the ER this morning with cough, congestion, some poor appetite and poor intake and feelings of dizziness. Work-up in the ER revealed pneumonic infiltrate and she was admitted to hospital for IV antibiotics and fluid administration. [facility] Disclaimer: The information contained in this section may have been updated after the patient was seen, as this information can be updated by other users. Medical History Acquired hypothyroidism Acute hypoxemic respiratory failure Acute on chronic diastolic CHF (congestive heart failure) Anemia requiring transfusions Anticoagulated on Coumadin Aortic stenosis Atrial fibrillation CAD (coronary artery disease) Cellulitis of left ring finger Chronic anemia CKD (chronic kidney disease) Concussion without loss of consciousness Congestive heart disease COPD (chronic obstructive pulmonary disease) COPD (chronic obstructive pulmonary disease) with acute bronchitis Diverticulitis Facial contusion Gangrene of finger of left hand Gastroenteritis Head contusion Hypotensive episode Hypoxia Junctional bradycardia Normal colonoscopy Pleural effusion Rapid atrial fibrillation Renal insufficiency Respiratory failure with hypoxia SIRS (systemic inflammatory response syndrome) Subungual hematoma of left ring finger TIA (transient ischemic attack) Surgical History Hx of cholecystectomy S/P lumpectomy, left breast Status post total hip replacement, right Family History (Updated 12/29/22 @ 12:58 by Mary Watkins RN) Family history of hypertension Family history of diabetes mellitus type II Social History (Updated 12/29/22 @ 12:59 by Mary Watkins RN) Smoking Status: Former smoker second hand exposure: No alcohol intake: never counseling given: No substance use type: denies use current occupational status: retired Travel in the last 8 weeks: None household members: none housing: apartment caffeine: Yes Review of Systems Review of Systems Review of systems:: pertinent systems reviewed and negative unless documented below Constitutional Constitutional: Denies headache(s) ENT Ears, Nose, Mouth, and Throat: Denies headache(s) *Neurologic Neurologic: Denies headache(s) Meds Home Medications and Allergies Home Medications Medication Instructions Recorded Confirmed Type omeprazole 20 mg capsule,delayed 20 mg PO DAILY Acid reflux 12/01/20 12/29/22 History release paroxetine HCl 20 mg tablet 20 mg PO DAILY Depression 90 days 04/08/22 12/29/22 Rx #90 tabs apixaban 2.5 mg tablet (Eliquis) 2.5 mg PO BID Blood thinner, AFib 12/29/22 12/29/22 History carvedilol 12.5 mg tablet 12.5 mg PO BID AFib 12/29/22 12/29/22 History isosorbide mononitrate 30 mg 30 mg PO DAILY High blood pressure 12/29/22 12/29/22 History tablet,extended release 24 hr levothyroxine 25 mcg tablet 25 mcg PO DAILY Thyroid 12/29/22 12/29/22 History New Prescriptions to Start Prescriptions: Allergies Allergy/AdvReac Type Severity Reaction Status Date / Time iodine [IODINE] Allergy Severe S-ANAPHYLAX Verified 05/07/22 09:35 IS Sulfa (Sulfonamide Allergy Severe I-HIVES Verified 05/07/22 09:35 Antibiotics) [SULFA (SULFONAMIDE ANTIBIOTICS)] Penicillins [PENICILLINS] Allergy Intermediate I-RASH Verified 05/07/22 09:35 codeine [CODEINE] Allergy Unknown NA-HALLUCIN Verified 05/07/22 09:35 ATIONS hydrogen peroxide Allergy Unknown Verified 05/07/22 09:35 Exam Data for Last 24 hours Vital signs and Labs for Last 24 Hours: Temp Pulse Resp BP Pulse Ox 98.3 F 119 H 20 130/70 90 L 12/29/22 17:11 12/29/22 17:11 12/29/22 17:11 0
[2022-12-30] VITALS (8 sets, daily range): BP systolic 107–154; BP diastolic 64–104; PULSE 102–121; RESP 16–20; TEMP 36.5–36.8; O2SAT 90–97; BMI 33.3
--- NOTE | 2022-12-30 00:38 | PC.NURSE ---
Notified Meng MATHIS of pt's BP of 154/104... will continue to monitor.
--- NOTE | 2022-12-30 04:06 | PC.NURSE ---
Pt. is aox4, bed alarm is on, on 2l-NC, up with assist times 1, 20g in the left AC with NS@ 100.
[2022-12-30 06:18] LABS: Basophils % 0.7 % (0.1-2.0); Eosinophils # 0.1 K/mm3 (0.0-0.4); Eosinophils % 2.4 % (0.1-12.0); Hematocrit 27.7 % (37.0-47.0); Lymphocytes # 0.7 K/mm3 (0.7-4.5); Lymphocytes % 15.4 % (10-50); Mean Corpuscular HGB Conc 29.8 g/dL (31.8-35.4); Mean Corpuscular Hemoglobin 25.8 pg (27.0-31.2); Mean Corpuscular Volume 86.6 fl (81-99); Monocytes # 0.4 K/mm3 (0.1-1.0); Monocytes % 9.3 % (1.7-9.3); Neutrophils # 3.1 K/mm3 (1.8-7.8); Neutrophils % 72.2 % (37.0-80.0); Platelet Count 220 K/mm3 (142-424); Red Cell Distribution Width 17.7 % (11.5-17.5); White Blood Count 4.3 K/mm3 (4.8-10.8)
[2022-12-30 06:31] LABS: Chloride 113 mmol/L (98-107); Potassium 4.9 mmoL/L (3.5-5.1); Sodium 140 mmol/L (136-145)
[2022-12-30 06:34] LABS: Blood Urea Nitrogen 26 mg/dl (7-17); Creatinine Clearance Estimated 27 mL/min (50-200); Estimated Glomerular Filt Rate 22 ml/min (>60); GFR (African American) 27 ML/MIN (>60)
[2022-12-30 06:35] LABS: Anion Gap 9.9 mEq/L (5-15); Calcium 8.6 mg/dl (8.4-10.2); Carbon Dioxide 22 mmol/L (22.0-30.0); Glucose 99 mg/dl (74-100)
[2022-12-30 07:02] LABS: Hemoglobin 8.3 g/dL (12.2-16.2)
--- NOTE | 2022-12-30 07:51 | SW/DCPLANNER ---
Addendum entered by [facility] 01/01/23 10:51: Cristy w/ [facility] stated that services will start Wednesday for this patient. Addendum entered by [facility] 01/01/23 09:34: Patient information/order has been faxed to [facility]. Patient will discharge home today. MD called and updated patient's daughter regarding discharge plans. Addendum entered by [facility] 12/31/22 10:31: I have updated patient's daughter this AM regarding the plan pending no setbacks is for patient to discharge home tomorrow w/ home health services. Addendum entered by [facility] 12/30/22 11:31: PT has stated that patient would benefit from home health services and placement is not needed at this time. I called and spoke with patient's daughter regarding discharge plans. Daughter stated that she is not interested in a private sitters list at this time. Daughter has stated that she is interested in home health services and prefers an agency that would start the soonest. I will continue to follow up with patient/family. Patient may discharge home tomorrow. Original Note: Patient/family are interested in placement at [facility] or [facility]. PT/OT will evaluate this patient today. I will follow up with patient/family, MD and facilities after PT/OT eval is completed.
--- NOTE | 2022-12-30 07:56 | EXP.ACUTE.PN ---
Subjective *Date: 12/30/22 *Time: 07:56 Interval history: Patient feels a little better, states that she feels like her breathing is somewhat squeaky. Medical Exam Vital signs and Labs for Last 24 Hours: Vital Signs Temp Pulse Pulse Resp BP BP Pulse Ox 12/30/22 07:16 98.3 F 104 H 20 151/94 H 90 L 12/30/22 04:00 98.3 F 121 H 20 117/64 94 L 12/30/22 02:00 117 H 151/87 H 12/30/22 00:00 98.1 F 120 H 18 154/104 H 94 L 12/29/22 20:00 97 12/29/22 20:00 98.0 F 112 H 18 149/91 H 94 L 12/29/22 17:11 98.3 F 119 H 20 130/70 90 L 12/29/22 15:01 98.0 F 113 H 22 105/68 L 90 L 12/29/22 12:34 98.2 F 126 H 20 124/89 93 L 12/29/22 12:16 97.9 F 123 H 20 156/102 H 12/29/22 12:01 111 H 155/111 H 95 12/29/22 11:31 125 H 167/100 H 95 12/29/22 11:03 177/129 H 12/29/22 10:41 130 H 30 H 163/110 H 12/29/22 10:38 131 H 30 H 196/133 H 12/29/22 10:31 124 H 195/133 H 94 L 12/29/22 10:01 117 H 183/115 H 95 12/29/22 09:58 98.2 F 131 H 16 170/121 H 87 L Intake and Output 12/29/22 12/30/22 12/30/22 19:59 03:59 11:59 Intake Total 240 / 1180 700 / 1180 240 / 1180 Output Total 0 / 0 Balance 240 / 1180 700 / 1180 240 / 1180 Intake: Intake, Oral Amount 240 / 480 240 / 480 Intake, Total IV Amount 700 / 700 0.9 % Sodium Chloride 1000ML 1, 700 / 700 000 ml @ 100 mls/hr IV .Q10H [facility] Rx#:[id number] Output: Output, Urine Amount 0 / 0 Other: Number of Unmeasured Voids 1 Number of Bowel Movements 1 Weight 198 lb 9 oz 200 lb 5 oz Patient Weight 12/30/22 11:59 Weight 200 lb 5 oz Laboratory Results - last 24 hr 12/29/22 09:52: WBC 5.4, RBC 3.58 L, Hgb 9.3 L, Hct 30.6 L, MCV 85.3, MCH 25.8 L, MCHC 30.3 L, RDW 17.9 H, Plt Count 253, MPV 7.8, Neut % (Auto) 76.4, Lymph % (Auto) 12.9, [place] % (Auto) 7.4, Eos % (Auto) 2.7, Baso % (Auto) 0.6, Neut # (Auto) 4.1, Lymph # (Auto) 0.7, [place] # (Auto) 0.4, Eos # (Auto) 0.1, Baso # (Auto) 0.0 12/29/22 09:52: Sodium 140, Potassium 4.6, Chloride 112 H, Carbon Dioxide 22, Anion Gap 10.6, BUN 22 H, Creatinine 2.10 H, Estimated Creat Clear 27, Estimated GFR 22 L, Est GFR ( Amer) 27 L, Glucose 104 H, Calcium 8.9, Magnesium 2.0, Total Bilirubin 0.5, AST 18, ALT 14, Alkaline Phosphatase 212 H, Troponin I 0.02, NT-Pro-B Natriuret Pep 22647 H, Total Protein 5.9 L, Albumin 3.5, Globulin 2.4, Albumin/Globulin Ratio 1.5, TSH 2.64 12/29/22 10:05: SARS-CoV-2 (PCR) Not detected, Influenza A Untype (PCR) Not detected, Influenza Type B (PCR) Not detected 12/29/22 10:13: VBG pH 7.23 L, VBG pCO2 46.6, VBG pO2 51.2 H, VBG HCO3 19.0 L, VBG Total CO2 20.5 L, VBG O2 Saturation 81.0 H, VBG Base Excess -8.5 L 12/29/22 10:59: Urine Color Yellow, Urine Appearance Clear, Urine pH 6.0, Ur Specific [place] 1.025, Urine Protein 1+, Urine Glucose (UA) Negative, Urine Ketones Negative, Urine Blood Negative, Urine Nitrate Negative, Urine Bilirubin Negative, Urine Urobilinogen 0.2, Ur Leukocyte Esterase Negative, Urine RBC None, Urine WBC Occasional, Ur Squamous Epith Cells Occasional, Urine Bacteria Trace 12/29/22 11:55: Lactate 0.8 12/29/22 13:07: Troponin I 0.01 12/29/22 16:02: Troponin I 0.02 12/30/22 05:39: WBC 4.3 L, RBC 3.20 L, Hgb 8.3 L D, Hct 27.7 L, MCV 86.6, MCH 25.8 L, MCHC 29.8 L, RDW 17.7 H, Plt Count 220, MPV 8.0, Neut % (Auto) 72.2, Lymph % (Auto) 15.4, [place] % (Auto) 9.3, Eos % (Auto) 2.4, Baso % (Auto) 0.7, Neut # (Auto) 3.1, Lymph # (Auto) 0.7, [place] # (Auto) 0.4, Eos # (Auto) 0.1, Baso # (Auto) 0.0 12/30/22 05:39: Sodium 140, Potassium 4.9, Chloride 113 H, Carbon Dioxide 22, Anion Gap 9.9, BUN 26 H, Creatinine 2.10 H, Estimated Creat Clear 27, Estimated GFR 22 L, Est GFR ( Amer) 27 L, Glucose 99, Calcium 8.6 I & O for Labs for Last 24 Hours: Intake & Output 12/27/22 12/28/22 12/29/22 12/30/22 11:59 11:59 11:59 11:59 Intake Total 1180 / 1180 Ou
--- NOTE | 2022-12-30 09:57 | HMH.OTEV ---
OT Inpatient Evaluation Rehab OT IP Evaluation Start: 12/30/22 07:56 Freq: ONCE Status: Active Protocol: Document 12/30/22 09:51 [facility] (Rec: 12/30/22 09:57 [facility] [id number]) Rehab OT IP Assessment Subjective History Pt oriented x 4 on arrival. Pt agreeable to engage in therapy evaluation. Pt was admitted via ED on 12/29/22 due to weakness, cough, and PNA. Prior to being in the hospital, pt lived at home alone. Her daughter lives 1 block from her. Pt claims prior to being ill, she was independent with all ADLs and IADLs. She has never driven, so her daughter takes her to grocery shop. She uses a walker for increased safety during functional transfers. Pt has a past medical history of: Acquired hypothyroidism Acute hypoxemic respiratory failure Acute on chronic diastolic CHF (congestive heart failure) Anemia requiring transfusions Anticoagulated on Coumadin Aortic stenosis Atrial fibrillation CAD (coronary artery disease) Cellulitis of left ring finger Chronic anemia CKD (chronic kidney disease) Concussion without loss of consciousness Congestive heart disease COPD (chronic obstructive pulmonary disease) COPD (chronic obstructive pulmonary disease) with acute bronchitis Diverticulitis Facial contusion Gangrene of finger of left hand Gastroenteritis Head contusion Hypotensive episode Hypoxia Junctional bradycardia Normal colonoscopy
--- NOTE | 2022-12-30 11:24 | HMH.PTEV ---
Physical Therapy Evaluation Rehab PT IP Evaluation Start: 12/30/22 07:56 Freq: ONCE Status: Active Protocol: Document 12/30/22 09:08 [facility] (Rec: 12/30/22 11:23 [place] [id number]) Subjective/History History History 87 yowf adm to [facility] with PNA, hx of CHF. She reports she lives alone, no steps to enter the home and she is independent with all mobility using a RW prior to adm. Subjective Subjective She reports feeling good this am, no c/o SOA or pain. Oxygen on via NC upon presentation, but pt able to ambulate without Oxygen on and no c/o SO increase. Rehab PT IP Eval Objective Appearance Patient Behavior Appropriate Patient Orientation Person,Place,Time Difficulty following instructions none Speech Pattern Clear Ambulation Patient Able to Ambulate Yes Ambulation Observation IP General Gait Pattern Observation Shuffling Step Ambulation Distance (feet) 30 Ambulation Assistive Device Rolling Walker Ambulation Ability Independent Balance Ability to Arise Able, uses arms to help Sitting Balance Steady, safe Standing Balance Steady, wide stance Dynamic Sitting Balance Ability Good Dynamic Standing Balance Ability Good Transfers Chair Transfer Ability Independent Sit to Stand Bed Transfer Ability Independent Sit to Stand Chair Transfer Ability Independent ROM All Extremities PT ROM Status WFL MMT All Extremities PT MMT WFL Rehab PT IP prob,goals,plan Problems Date of Evaluation: 12/30/22 Discharge Plan PT Discharge Plan Pt is currently appropriate to return home once medically stable for d/c. She would benefit from home health therapy services as needed. G -code Required No Eval Complexity Eval Charge Codes 51171 - Moderate Complexity PHYSICIAN CERTIFICATION: I certify the specified therapy services for Aileen Bassett are required, authorized, and reviewed every 30 days.
--- NOTE | 2022-12-30 18:29 | PC.NURSE ---
Patient alert and oriented this am. During the evening patient hard to arouse and very lethargic. Patient able to be aroused by slight sternal rub but barely able to stay awake. Crackles noted. Dr. Bettencourt paged. IV lasix ordered and given. Blood sugar checked, 142.
[2022-12-30 18:37] LABS: POC Glucose,Bedside 142 (70-110)
[2022-12-31] VITALS (11 sets, daily range): BP systolic 121–150; BP diastolic 65–95; PULSE 77–113; RESP 18–19; TEMP 36.5–36.9; O2SAT 92–98; BMI 33.3
[2022-12-31 06:25] LABS: Basophils % 0.1 % (0.1-2.0); Chloride 111 mmol/L (98-107); Hematocrit 27.9 % (37.0-47.0); Hemoglobin 8.4 g/dL (12.2-16.2); Lymphocytes # 0.2 K/mm3 (0.7-4.5); Lymphocytes % 3.7 % (10-50); Mean Corpuscular HGB Conc 30.3 g/dL (31.8-35.4); Mean Corpuscular Hemoglobin 26.1 pg (27.0-31.2); Mean Corpuscular Volume 86.1 fl (81-99); Mean Platelet Volume 7.8 fl (7.4-10.4); Monocytes # 0.1 K/mm3 (0.1-1.0); Monocytes % 2.6 % (1.7-9.3); Neutrophils # 4.8 K/mm3 (1.8-7.8); Neutrophils % 93.6 % (37.0-80.0); Platelet Count 247 K/mm3 (142-424); Potassium 5.1 mmoL/L (3.5-5.1); Red Blood Count 3.24 M/mm3 (4.20-5.40); Sodium 139 mmol/L (136-145); White Blood Count 5.1 K/mm3 (4.8-10.8)
[2022-12-31 06:26] LABS: MANUAL DIFFERENTIAL MANUAL DIFFERENTIAL (MANUAL DIFF)
[2022-12-31 06:28] LABS: Anion Gap 11.1 mEq/L (5-15); Blood Urea Nitrogen 30 mg/dl (7-17); Calcium 8.7 mg/dl (8.4-10.2); Carbon Dioxide 22 mmol/L (22.0-30.0); Creatinine Clearance Estimated 26 mL/min (50-200); Estimated Glomerular Filt Rate 21 ml/min (>60); GFR (African American) 26 ML/MIN (>60); Glucose 132 mg/dl (74-100)
[2022-12-31 06:51] LABS: Anisocytosis 1+; Hypochromasia 1+; Lymphocytes % 6 % (10-50); Monocytes % 3 % (2-9); Neutrophils % 91 % (42-76); Platelet Estimate Normal; Total Cells Counted 100
--- NOTE | 2022-12-31 08:51 | EXP.ACUTE.PN ---
Subjective *Date: 12/31/22 *Time: 08:51 Interval history: Overall patient states that she feels much better. Feels comfortable, wearing 2 L nasal cannula, alert, oriented x3. Medical Exam Vital signs and Labs for Last 24 Hours: Vital Signs Temp Pulse Pulse Resp BP Pulse Ox 12/31/22 07:49 98.4 F 100 H 18 143/78 H 92 L 12/31/22 06:14 110 H 12/31/22 06:14 110 H 12/31/22 06:14 94 L 12/31/22 04:00 97.9 F 98 H 18 150/88 H 97 12/31/22 00:00 97.8 F 95 H 18 124/77 93 L 12/30/22 20:17 102 H 12/30/22 20:17 105 H 12/30/22 20:17 97 12/30/22 19:57 97.7 F 102 H 16 140/71 96 12/30/22 15:17 97.8 F 108 H 18 107/66 L 93 L 12/30/22 11:06 98.0 F 103 H 18 145/98 H 91 L Intake and Output 12/30/22 12/31/22 12/31/22 19:59 03:59 11:59 Intake Total 180 / 420 120 / 420 120 / 420 Output Total 0 / 0 0 / 0 Balance 180 / 420 120 / 420 120 / 420 Intake: Intake, Oral Amount 180 / 420 120 / 420 120 / 420 Output: Output, Urine Amount 0 / 0 0 / 0 Other: Number of Unmeasured Voids 1 1 1 Weight 200 lb 2 oz Patient Weight 12/31/22 11:59 Weight 200 lb 2 oz Laboratory Results - last 24 hr 12/30/22 18:16: POC Glucose 142 H 12/31/22 05:48: WBC 5.1, RBC 3.24 L, Hgb 8.4 L, Hct 27.9 L, MCV 86.1, MCH 26.1 L, MCHC 30.3 L, RDW 18.0 H, Plt Count 247, MPV 7.8, Neut % (Auto) 93.6 H, Lymph % (Auto) 3.7 L, [place] % (Auto) 2.6, Eos % (Auto) 0.0 L, Baso % (Auto) 0.1, Neut # (Auto) 4.8, Lymph # (Auto) 0.2 L, [place] # (Auto) 0.1, Eos # (Auto) 0.0, Baso # (Auto) 0.0, Total Counted 100, Neutrophils % (Manual) 91 H, Lymphocytes % (Manual) 6 L, Monocytes % (Manual) 3, Platelet Estimate Normal, Hypochromasia 1+, Anisocytosis 1+ 12/31/22 05:48: Sodium 139, Potassium 5.1, Chloride 111 H, Carbon Dioxide 22, Anion Gap 11.1, BUN 30 H, Creatinine 2.20 H, Estimated Creat Clear 26, Estimated GFR 21 L, Est GFR ( Amer) 26 L, Glucose 132 H, Calcium 8.7 I & O for Labs for Last 24 Hours: Intake & Output 12/28/22 12/29/22 12/30/22 12/31/22 11:59 11:59 11:59 11:59 Intake Total 1180 / 1180 420 / 420 Output Total 0 / 0 0 / 0 Balance 1180 / 1180 420 / 420 Weight 200 lb 200 lb 4.992 oz 200 lb 2 oz Comment:: Alert, pleasant. Lungs with good air movement, scattered rhonchi. Heart rate irregular at baseline. Edema noted at baseline. Globally weak but neurologically intact otherwise. Assessment and Plan *Assessment and plan (1) Pneumonia: Status: Acute Category: Medical Code(s): J18.9 - Pneumonia, unspecified organism (2) CKD (chronic kidney disease): Status: Chronic Qualifiers: Chronic kidney disease stage: unspecified stage Qualified Code(s): N18.9 - Chronic kidney disease, unspecified Category: Medical Code(s): N18.9 - Chronic kidney disease, unspecified (3) Atrial fibrillation: Status: Chronic Qualifiers: Atrial fibrillation type: longstanding persistent Qualified Code(s): I48.11 - Longstanding persistent atrial fibrillation Category: Medical Code(s): I48.91 - Unspecified atrial fibrillation (4) Congestive heart disease: Status: Chronic Qualifiers: Heart failure chronicity: acute on chronic Heart failure type: unspecified Qualified Code(s): I50.9 - Heart failure, unspecified Category: Medical Code(s): I50.9 - Heart failure, unspecified Plan Agree with admission, IV antibiotics started. Patient already feels better on evening rounds tonight. Watch heart rate carefully, restart home medications including her beta-sandra. Elevated BNP noted but this may be a consequence of pulmonary stress and use of Entresto. Close observation overnight with low-dose IV fluids. Plan update 12/30/2022-stop IV fluids given her history of CHF. She seems euvolemic at this point. Add Xopenex for her wheezing, 1 dose of steroids, PT and OT evaluation for he
--- NOTE | 2022-12-31 18:07 | PC.NURSE ---
Patient alert and oriented during shift with no periods of confusion noted. Patient stated she felt much better. Patient still on 2LNC. Lung sounds diminished.
[2023-01-01 04:00] VITALS: BP 153/80; PULSE 110; RESP 20; TEMP 36.5; O2SAT 97; BMI 33.4
--- NOTE | 2023-01-01 04:15 | PC.NURSE ---
PATIENT HAS RESTED WELL. NO COMPLAINTS. HAS 02 AT 2LNC. DENIES SOA/CHEST PAIN OR DISCOMFORT. HR IS IRREGULAR AND CAN GET TACHYCARDIC WITH ACTIVITY.
[2023-01-01 06:00] VITALS: PULSE 95; PULSE 98; O2SAT 95
[2023-01-01 06:08] LABS: Basophils % 0.3 % (0.1-2.0); Eosinophils # 0.1 K/mm3 (0.0-0.4); Hematocrit 27.1 % (37.0-47.0); Hemoglobin 8.1 g/dL (12.2-16.2); Lymphocytes # 0.7 K/mm3 (0.7-4.5); Lymphocytes % 11.9 % (10-50); Mean Corpuscular HGB Conc 30.1 g/dL (31.8-35.4); Mean Corpuscular Hemoglobin 25.6 pg (27.0-31.2); Mean Corpuscular Volume 85.2 fl (81-99); Mean Platelet Volume 8.1 fl (7.4-10.4); Monocytes # 0.4 K/mm3 (0.1-1.0); Monocytes % 6.9 % (1.7-9.3); Neutrophils # 4.9 K/mm3 (1.8-7.8); Neutrophils % 78.9 % (37.0-80.0); Platelet Count 263 K/mm3 (142-424); Red Blood Count 3.18 M/mm3 (4.20-5.40); White Blood Count 6.2 K/mm3 (4.8-10.8)
[2023-01-01 06:15] LABS: Chloride 111 mmol/L (98-107); Potassium 4.9 mmoL/L (3.5-5.1); Sodium 138 mmol/L (136-145)
[2023-01-01 06:18] LABS: Anion Gap 8.9 mEq/L (5-15); Blood Urea Nitrogen 42 mg/dl (7-17); Calcium 8.4 mg/dl (8.4-10.2); Carbon Dioxide 23 mmol/L (22.0-30.0); Creatinine Clearance Estimated 24 mL/min (50-200); Estimated Glomerular Filt Rate 19 ml/min (>60); GFR (African American) 23 ML/MIN (>60); Glucose 95 mg/dl (74-100)
[2023-01-01 08:00] VITALS: BP 115/64; PULSE 106; RESP 18; TEMP 36.7; O2SAT 94
--- NOTE | 2023-01-01 08:27 | EXP.PHA.PN ---
Subjective *Date: 01/01/23 *Time: 08:27 Medical Exam Vital signs and Labs for Last 24 Hours: Vital Signs Temp Pulse Pulse Resp BP Pulse Ox 01/01/23 06:00 95 H 01/01/23 06:00 98 H 01/01/23 06:00 95 01/01/23 04:00 97.7 F 110 H 20 153/80 H 97 12/31/22 23:55 97.8 F 94 H 18 138/80 96 12/31/22 20:00 96 12/31/22 20:00 97.7 F 113 H 18 127/70 96 12/31/22 19:52 98 12/31/22 19:51 95 H 12/31/22 19:51 95 H 12/31/22 15:40 97.8 F 103 H 19 121/65 94 L 12/31/22 13:25 78 12/31/22 13:25 77 12/31/22 11:44 98.0 F 104 H 18 140/95 H 93 L Intake and Output 12/31/22 01/01/23 01/01/23 23:59 07:59 15:59 Intake Total 290 / 1090 200 / 200 Output Total 0 / 0 Balance 290 / 1090 200 / 200 Intake: Intake, Oral Amount 240 / 1040 200 / 200 Intake, Total IV Amount 50 / 50 Ceftriaxone 1 gm 1 gm In 0.9 % 50 / 50 Sodium Chloride 50 ml @ 100 mls /hr IV Q24H [facility] Rx#:[id number] Output: Output, Urine Amount 0 / 0 Other: Number of Unmeasured Voids 1 Weight 91.036 kg Patient Weight 01/01/23 23:59 Weight 91.036 kg Laboratory Results - last 24 hr 01/01/23 05:38: WBC 6.2, RBC 3.18 L, Hgb 8.1 L, Hct 27.1 L, MCV 85.2, MCH 25.6 L, MCHC 30.1 L, RDW 18.0 H, Plt Count 263, MPV 8.1, Neut % (Auto) 78.9, Lymph % (Auto) 11.9, [place] % (Auto) 6.9, Eos % (Auto) 2.0, Baso % (Auto) 0.3, Neut # (Auto) 4.9, Lymph # (Auto) 0.7, [place] # (Auto) 0.4, Eos # (Auto) 0.1, Baso # (Auto) 0.0 01/01/23 05:38: Sodium 138, Potassium 4.9, Chloride 111 H, Carbon Dioxide 23, Anion Gap 8.9, BUN 42 H D, Creatinine 2.40 H, Estimated Creat Clear 24, Estimated GFR 19 L*, Est GFR ( Amer) 23 L, Glucose 95 D, Calcium 8.4 I & O for Labs for Last 24 Hours: Intake & Output 12/29/22 12/30/22 12/31/22 01/01/23 23:59 23:59 23:59 23:59 Intake Total 240 / 240 1240 / 1240 890 / 1090 200 / 200 Output Total 0 / 0 0 / 0 0 / 0 0 / 0 Balance 240 / 240 1240 / 1240 890 / 1090 200 / 200 Weight 90.066 kg 90.86 kg 90.775 kg 91.036 kg Microbiology Reports for the Last 24 Hours: Microbiology 12/30/22 18:23 Sputum - Expectorated Sputum Gram Stain - Final 12/29/22 11:55 Blood Blood Culture - Preliminary NO GROWTH AFTER 48 HOURS 12/29/22 11:53 Blood Blood Culture - Preliminary NO GROWTH AFTER 48 HOURS The patient's infection will respond to the chosen ABx?: Yes Is the patient receiving the right drug, dose, and route?: Yes Could a more targeted ABx be ordered?: No (WBC 6.2K, SPUTUM CX PENDING)
--- NOTE | 2023-01-01 08:55 | EXP.DC.SUM ---
General Admission date:: 12/29/22 Discharge date: 01/01/23 HPI HPI HPI: 87-year-old female with history of CHF and hypertension as well as paroxysmal A-fib who presented to the ER this morning with cough, congestion, some poor appetite and poor intake and feelings of dizziness. Work-up in the ER revealed pneumonic infiltrate and she was admitted to hospital for IV antibiotics and fluid administration. Hospital Course Hospital Course Hospital Course: Patient was admitted. Given her pneumonia and abnormal metabolic parameters she was given IV antibiotics with ceftriaxone and azithromycin. Improved very nicely over the next day or so. She was somewhat weak and PT and OT evaluated her but she did great and was able to function independently. They did recommend home health for monitoring and some strengthening exercises at home. This morning she was doing well. She had eaten breakfast. She has a mild oxygen requirement, similar to her home requirement and is on 2 L with good oxygen saturations and feels comfortable. Able to do her own ADL activities. Plan we did discharge home with home health. I will follow her up in the office early next week with labs given her slightly lowered hemoglobin and stable but still present chronic kidney issues. We will finish up antibiotics with p.o. cefdinir. Exam Data for Last 24 hours Vital signs and Labs for Last 24 Hours: Temp Pulse Resp BP Pulse Ox 98.0 F 106 H 18 115/64 94 L 01/01/23 08:00 01/01/23 08:00 01/01/23 08:00 01/01/23 08:00 01/01/23 08:00 Laboratory Results - last 24 hr 01/01/23 05:38: WBC 6.2, RBC 3.18 L, Hgb 8.1 L, Hct 27.1 L, MCV 85.2, MCH 25.6 L, MCHC 30.1 L, RDW 18.0 H, Plt Count 263, MPV 8.1, Neut % (Auto) 78.9, Lymph % (Auto) 11.9, [place] % (Auto) 6.9, Eos % (Auto) 2.0, Baso % (Auto) 0.3, Neut # (Auto) 4.9, Lymph # (Auto) 0.7, [place] # (Auto) 0.4, Eos # (Auto) 0.1, Baso # (Auto) 0.0 01/01/23 05:38: Sodium 138, Potassium 4.9, Chloride 111 H, Carbon Dioxide 23, Anion Gap 8.9, BUN 42 H D, Creatinine 2.40 H, Estimated Creat Clear 24, Estimated GFR 19 L*, Est GFR ( Amer) 23 L, Glucose 95 D, Calcium 8.4 I & O for Last 24 hours: Intake & Output 12/29/22 12/30/22 12/31/22 01/01/23 11:59 11:59 11:59 11:59 Intake Total 1180 / 1180 420 / 420 1090 / 1090 Output Total 0 / 0 0 / 0 0 / 0 Balance 1180 / 1180 420 / 420 1090 / 1090 Weight 200 lb 200 lb 4.992 oz 200 lb 2 oz 200 lb 11.2 oz Microbiology Reports for the Last 24 Hours: Microbiology 12/30/22 18:23 Sputum - Expectorated Sputum Gram Stain - Final 12/29/22 11:55 Blood Blood Culture - Preliminary NO GROWTH AFTER 48 HOURS 12/29/22 11:53 Blood Blood Culture - Preliminary NO GROWTH AFTER 48 HOURS Constitutional Constitutional: no acute distress *Routine HEENT Exam Head: Present normocephalic Eye: Present EOMI and PERRL ENT: Present mucous membranes moist *Routine Neck Exam Neck: Present supple; Absent lymphadenopathy *Routine Respiratory Exam Respiratory: Present CTA bilaterally *Routine Cardiovascular Exam Cardiovascular: Present murmur and irregularly irregular *Routine Abdominal Exam Abdominal: Present soft and normoactive bowel sounds; Absent tenderness *Routine Extremities Exam Extremities: Absent cyanosis, clubbing or edema *Routine Skin Exam Skin: Present warm; Absent rash *Routine Neurological Exam Neurological: Present alert and oriented X3 Results Data Completed and Pending Labs on day of discharge: Labs from last 24 hours 01/01/23 01/01/23 05:38 05:38 WBC 6.2 RBC 3.18 L Hgb 8.1 L Hct 27.1 L MCV 85.2 MCH 25.6 L MCHC 30.1 L RDW 18.0 H Plt Count 263 MPV 8.1 Neut % (Auto) 78.9 Lymph % (Auto) 11.9 [place] % (Auto) 6.9 Eos % (Auto) 2.0 Baso % (Auto) 0.3 Neut # (Auto) 4.9 Lymph # (Auto) 0.7 [place] # (Auto) 0.4 Eos # (Auto) 0.1 Baso # (Auto) 0.0 Sodium 138
--- NOTE | 2023-01-04 13:46 | CARE MANAGER ---
Contacted patient related to hospital discharge. She states she is doing much better. She is taking her antibiotic and home health started today. She is not going to be able to make it to her MD appt tomorrow and needs to reschedule for next week. She states she will call the doctor's office and let them know. Dr. Pride requests CBC and CMP drawn tomorrow by [facility]. Notified [facility]. ANNETTE Matthews
== END 2023-01-01 13:04 | disposition home health service (06) | DRG 193 ==
LOC: ER 11:36 → 2ND 11:49
PROVIDERS: Admitting Provider Internal Medicine Adolescent Medicine; Emergency Provider Emergency Medicine; PCP Internal Medicine Adolescent Medicine; Visit Provider Internal Medicine Adolescent Medicine
DX: J18.9 Pneumonia, unspecified organism (principal); I50.33 Acute on chronic diastolic (congestive) heart failure; I48.11 Longstanding persistent atrial fibrillation; I13.0 Hypertensive heart and chronic kidney disease with heart failure and stage 1 through stage 4 chronic kidney disease, or unspecified chronic kidney disease; N18.9 Chronic kidney disease, unspecified; Z79.01 Long term (current) use of anticoagulants; E03.9 Hypothyroidism, unspecified; J44.9 Chronic obstructive pulmonary disease, unspecified; Z96.641 Presence of right artificial hip joint; Z86.73 Personal history of transient ischemic attack (TIA), and cerebral infarction without residual deficits
CPT/HCPCS: 36415; 71045; 80048; 80053; 81001; 82803; 82962; 83605; 83735; 83880; 84443; 84484; 85007; 85025; 87040; 87070; 87205; 93005; 94640; 94761; 97162; 97165; 99285; C9803; J0456; J0696; U0003; U0005

== ENCOUNTER 2023-01-01 22:27 | Emergency (ER) | payer MEDICARE, MEDICAID, SELFPAY ==
[2023-01-01 22:29] VITALS: BP 87/51; PULSE 91; RESP 22; TEMP 36.6; O2SAT 91; BMI 34.9
[2023-01-01 22:52] VITALS: BP 108/82; PULSE 65; O2SAT 90
--- NOTE | 2023-01-01 23:19 | HMH.EDGENADL ---
Discharge Plan Disposition Patient Disposition: Home, Self-Care Condition: Good Prescriptions Prescriptions: New levofloxacin 750 mg tablet 750 mg PO DAILY 3 Days Qty: 3 0RF No Action paroxetine HCl 20 mg tablet 20 mg PO DAILY 90 Days Qty: 90 0RF levothyroxine 25 mcg tablet 25 mcg PO DAILY Rx Instructions: TAKE 1 TABLET BY MOUTH ONCE DAILY Eliquis 2.5 mg tablet 2.5 mg PO BID Rx Instructions: TAKE 1 TABLET BY MOUTH TWICE DAILY carvedilol 12.5 mg tablet 12.5 mg PO BID isosorbide mononitrate 30 mg tablet extended release 24 hr 30 mg PO DAILY cefdinir 300 mg capsule 300 mg PO BID Qty: 8 0RF omeprazole 20 MG capsule,delayed release(DR/EC) 20 mg PO DAILY Referrals Follow up/Referrals: Jeremy Pride MD [Primary Care Provider] - See instructions Activity Restrictions/Add. Instructions Additional Instructions/Restrictions: Do not take cefdinir. Begin Levaquin tomorrow. Follow-up PCP on Wednesday. Return to ER for shortness of breath, rash Clinical Impressions Clinical Impression: Allergic reaction Discharge ED Provider: Martínez Morrow General Adult HPI General Chief complaint: Allergic Reaction Stated complaint: possible reaction to medication Time Seen by Provider: 01/01/23 22:29 Mode of Arrival: Wheelchair Source of Information: Patient and Relative Limitations: No Limitations Description of Symptoms (Recalled from ER Triage Doc. by RN): pt was discharge from hospital today for pneumonia and was prescribed cefdinir/ pt tookfirst dose tonight around 6pm. pt c/o hives, itching that started after taken cefdnir History of Present Illness HPI narrative: 87yo F presents to the ER secondary to diffuse urticaria. Released from the hospital today on cefdinir. Took her medication around 1800. Shortly after developed itching on bilateral palms and then broke out in a large rash. Numerous other allergies noted. No other acute concerns Related Data Home Medications Medication Instructions Recorded Confirmed omeprazole 20 mg capsule,delayed 20 mg PO DAILY Acid reflux 12/01/20 12/29/22 release apixaban 2.5 mg tablet (Eliquis) 2.5 mg PO BID Blood thinner, AFib 12/29/22 12/29/22 carvedilol 12.5 mg tablet 12.5 mg PO BID AFib 12/29/22 12/29/22 isosorbide mononitrate 30 mg 30 mg PO DAILY High blood pressure 12/29/22 12/29/22 tablet,extended release 24 hr levothyroxine 25 mcg tablet 25 mcg PO DAILY Thyroid 12/29/22 12/29/22 Previous Rx's Medication Instructions Recorded paroxetine HCl 20 mg tablet 20 mg PO DAILY Depression 90 days 04/08/22 #90 tabs cefdinir 300 mg capsule 300 mg PO BID #8 caps 01/01/23 levofloxacin 750 mg tablet 750 mg PO DAILY 3 days #3 tabs 01/01/23 Allergies Allergy/AdvReac Type Severity Reaction Status Date / Time cefdinir Allergy Severe Hives Verified 01/01/23 22:47 iodine [IODINE] Allergy Severe S-ANAPHYLAX Verified 05/07/22 09:35 IS Sulfa (Sulfonamide Allergy Severe I-HIVES Verified 05/07/22 09:35 Antibiotics) [SULFA (SULFONAMIDE ANTIBIOTICS)] Penicillins [PENICILLINS] Allergy Intermediate I-RASH Verified 05/07/22 09:35 codeine [CODEINE] Allergy Unknown NA-HALLUCIN Verified 05/07/22 09:35 ATIONS hydrogen peroxide Allergy Unknown Verified 05/07/22 09:35 [facility] Disclaimer: The information contained in this section may have been updated after the patient was seen, as this information can be updated by other users. Medical History Acquired hypothyroidism Acute hypoxemic respiratory failure Acute on chronic diastolic CHF (congestive heart failure) Anemia requiring transfusions Anticoagulated on Coumadin Aortic stenosis Atrial fibrillation CAD (coronary artery disease) Cellulitis of left ring finger Chronic anemia CKD (chronic kidney disease) Concussion without loss of consciousness Congestive heart disease COPD (chronic obstructive p
[2023-01-01 23:47] VITALS: BP 114/59; PULSE 89; O2SAT 94
[2023-01-01 23:57] VITALS: BP 114/59; PULSE 89; RESP 19; TEMP 36.9; O2SAT 96
--- NOTE | 2023-01-01 23:57 | PC.NURSE ---
Dr. Morrow at [facility]
== END 2023-01-02 00:13 | disposition home or self-care (01) ==
PROVIDERS: Emergency Provider Family Medicine; PCP Internal Medicine Adolescent Medicine
DX: L50.9 Urticaria, unspecified (principal); T36.95XA Adverse effect of unspecified systemic antibiotic, initial encounter
CPT/HCPCS: 96374; 96375; 99284

== ENCOUNTER → 2023-01-05 15:27 | Outpatient (CLI) | payer MEDICARE, MEDICAID, SELFPAY ==
[2023-01-05 15:53] LABS: Basophils % 0.2 % (0.1-2.0); Eosinophils # 0.2 K/mm3 (0.0-0.4); Eosinophils % 3.1 % (0.1-12.0); Hematocrit 27.6 % (37.0-47.0); Hemoglobin 8.4 g/dL (12.2-16.2); Lymphocytes # 0.7 K/mm3 (0.7-4.5); Lymphocytes % 13.2 % (10-50); Mean Corpuscular HGB Conc 30.2 g/dL (31.8-35.4); Mean Corpuscular Hemoglobin 25.2 pg (27.0-31.2); Mean Corpuscular Volume 83.3 fl (81-99); Mean Platelet Volume 8.1 fl (7.4-10.4); Monocytes # 0.5 K/mm3 (0.1-1.0); Monocytes % 9.6 % (1.7-9.3); Neutrophils # 3.8 K/mm3 (1.8-7.8); Neutrophils % 73.9 % (37.0-80.0); Platelet Count 280 K/mm3 (142-424); Red Blood Count 3.32 M/mm3 (4.20-5.40); Red Cell Distribution Width 18.1 % (11.5-17.5); White Blood Count 5.2 K/mm3 (4.8-10.8)
[2023-01-05 16:30] LABS: Chloride 108 mmol/L (98-107); Potassium 4.4 mmoL/L (3.5-5.1); Sodium 141 mmol/L (136-145)
[2023-01-05 16:32] LABS: Blood Urea Nitrogen 32 mg/dl (7-17); Estimated Glomerular Filt Rate 25 ml/min (>60); GFR (African American) 30 ML/MIN (>60)
[2023-01-05 16:33] LABS: Alanine Aminotransferase 19 U/L (12-78); Albumin/Globulin Ratio 1.5 (1.1-1.8); Alkaline Phosphatase 166 U/L (38-126); Anion Gap 15.4 mEq/L (5-15); Aspartate Amino Transferase 21 U/L (14-36); Bilirubin,Total 0.4 mg/dl (0.2-1.3); Calcium 8.3 mg/dl (8.4-10.2); Carbon Dioxide 22 mmol/L (22.0-30.0); Glucose 91 mg/dl (74-100)
== END ==
LOC: LAB 15:30 → LAB.DROPOF 02-13 03:35
PROVIDERS: PCP Internal Medicine Adolescent Medicine; Visit Provider Internal Medicine Adolescent Medicine
DX: I50.22 Chronic systolic (congestive) heart failure (principal)
CPT/HCPCS: 80053; 85025

== ENCOUNTER → 2023-03-19 13:59 | Outpatient (CLI) | payer MEDICARE, MEDICAID, SELFPAY ==
[2023-03-19 14:38] LABS: Basophils % 0.8 % (0.1-2.0); Eosinophils # 0.2 K/mm3 (0.0-0.4); Eosinophils % 4.5 % (0.1-12.0); Lymphocytes # 0.7 K/mm3 (0.7-4.5); Lymphocytes % 17.9 % (10-50); Mean Corpuscular Hemoglobin 22.8 pg (27.0-31.2); Mean Corpuscular Volume 78.6 fl (81-99); Monocytes # 0.4 K/mm3 (0.1-1.0); Monocytes % 10.9 % (1.7-9.3); Neutrophils # 2.6 K/mm3 (1.8-7.8); Platelet Count 323 K/mm3 (142-424); Red Blood Count 3.06 M/mm3 (4.20-5.40); Red Cell Distribution Width 18.5 % (11.5-17.5); White Blood Count 3.9 K/mm3 (4.8-10.8)
[2023-03-19 15:21] LABS: Alanine Aminotransferase 12 U/L (12-78); Albumin Level 3.6 g/dl (3.5-5.0); Albumin/Globulin Ratio 1.8 (1.1-1.8); Alkaline Phosphatase 172 U/L (38-126); Anion Gap 12.2 mEq/L (5-15); Aspartate Amino Transferase 17 U/L (14-36); Bilirubin,Total 0.5 mg/dl (0.2-1.3); Blood Urea Nitrogen 36 mg/dl (7-17); Calcium 8.8 mg/dl (8.4-10.2); Carbon Dioxide 25 mmol/L (22.0-30.0); Chloride 110 mmol/L (98-107); Estimated Glomerular Filt Rate 17 ml/min (>60); GFR (African American) 21 ML/MIN (>60); Glucose 92 mg/dl (74-100); Potassium 5.2 mmoL/L (3.5-5.1); Sodium 142 mmol/L (136-145); Total Protein,Serum 5.6 g/dl (6.3-8.2)
== END ==
PROVIDERS: PCP Internal Medicine Adolescent Medicine; Visit Provider Internal Medicine Adolescent Medicine
DX: D50.0 Iron deficiency anemia secondary to blood loss (chronic) (principal); I48.20 Chronic atrial fibrillation, unspecified
CPT/HCPCS: 36415; 80053; 85025

== ENCOUNTER 2023-03-20 09:02 | Outpatient (CLI) | payer MEDICARE, MEDICAID, SELFPAY ==
[2023-03-20] VITALS (22 sets, daily range): BP systolic 98–161; BP diastolic 62–110; PULSE 90–122; RESP 16–20; TEMP 36.6–36.9; O2SAT 90–95; BMI 33.4
--- NOTE | 2023-03-20 09:46 | PC.NURSE ---
notified lab that patient needed typed and cross
--- NOTE | 2023-03-20 10:08 | PC.NURSE ---
notified lab that pt still needs typed and crossed
--- NOTE | 2023-03-20 17:10 | PC.NURSE ---
Notified pt's daughter (Tia) that patient will be ready for discharge at 1800
[2023-03-20 18:17] LABS: Hematocrit 31.9 % (37.0-47.0); Hemoglobin 9.4 g/dL (12.2-16.2)
== END 2023-03-20 18:23 | disposition home or self-care (01) ==
PROVIDERS: PCP Internal Medicine Adolescent Medicine; Visit Provider Internal Medicine Adolescent Medicine
DX: D64.9 Anemia, unspecified (principal)
CPT/HCPCS: 36430; 85014; 85018; 86850; P9016

== ENCOUNTER 2023-11-19 09:29 | Outpatient (CLI) | payer MEDICARE, MEDICAID, SELFPAY ==
[2023-11-19] VITALS (10 sets, daily range): BP systolic 110–139; BP diastolic 56–82; PULSE 92–111; RESP 16–17; TEMP 36.1–36.3; O2SAT 96; BMI 29.7
[2023-11-19] MEDS: SODIUM CHLORIDE 0.9% 10ML FLUSH SYRINGE 10 ML IV (09:50)
[2023-11-19 10:02] LABS: Hematocrit 27.2 % (37.0-47.0); Hemoglobin 7.8 g/dL (12.2-16.2)
[2023-11-19] MEDS: 0.9 % SODIUM CHLORIDE 250 ML 25 ML IV (11:05)
--- NOTE | 2023-11-19 11:13 | PC.NURSE ---
1105-BLOOD TRANSFUSION STARTED AT 100ML/HR AT THIS TIME.
--- NOTE | 2023-11-19 12:04 | PC.NURSE ---
1135-INCREASED RATE TO 150 ML/HR AT THIS TIME.
--- NOTE | 2023-11-19 12:14 | PC.NURSE ---
1205 - INCREASED RATE TO 200 ML/HR AT THIS TIME.
== END 2023-11-19 14:55 | disposition home or self-care (01) ==
LOC: INF 09:30
PROVIDERS: PCP Internal Medicine Adolescent Medicine; Visit Provider Internal Medicine Adolescent Medicine
DX: D50.8 Other iron deficiency anemias (principal); Z86.2 Personal history of diseases of the blood and blood-forming organs and certain disorders involving the immune mechanism; Z79.899 Other long term (current) drug therapy
CPT/HCPCS: 36430; 85014; 85018; 86850; P9016

== ENCOUNTER 2024-03-01 12:09 | Outpatient (CLI) | payer MEDICARE, MEDICAID, SELFPAY ==
[2024-03-01] VITALS (10 sets, daily range): BP systolic 124–160; BP diastolic 66–96; PULSE 91–113; RESP 16–18; TEMP 35.9–36.6; O2SAT 92–93; BMI 31.4
[2024-03-01] MEDS: SODIUM CHLORIDE 0.9% 10ML FLUSH SYRINGE 10 ML IV (12:25)
[2024-03-01 12:32] LABS: Hematocrit 24.6 % (37.0-47.0); Hemoglobin 7.2 g/dL (12.2-16.2)
[2024-03-01] MEDS: SODIUM CHLORIDE 0.9% 250ML BAG 250 ML IV (13:23)
--- NOTE | 2024-03-01 13:58 | PC.NURSE ---
1342-BLOOD TRANSFUSION STARTED AT 100 ML/HR AT THIS TIME.
--- NOTE | 2024-03-01 14:22 | PC.NURSE ---
1412-INCREASED RATE TO 150 ML/HR AT THIS TIME.
--- NOTE | 2024-03-01 15:12 | PC.NURSE ---
1442-INCREASED RATE TO 200 ML/HR AT THIS TIME.
== END 2024-03-01 16:37 | disposition home or self-care (01) ==
LOC: INF 12:10
PROVIDERS: PCP Internal Medicine Adolescent Medicine; Visit Provider Internal Medicine Adolescent Medicine
DX: D64.9 Anemia, unspecified (principal)
CPT/HCPCS: 36430; 85014; 85018; 86850; P9016

== ENCOUNTER 2024-03-30 11:33 | Observation (INO) | payer MEDICARE, MEDICAID, SELFPAY ==
[2024-03-30] VITALS (11 sets, daily range): BP systolic 98–143; BP diastolic 64–94; PULSE 55–105; RESP 16–18; TEMP 36.6–37; O2SAT 85–99; BMI 31.4
--- NOTE | 2024-03-30 11:52 | XR_ITS ---
FINAL REPORT CLINICAL HISTORY: weakness, intermittent confusion, cough COMPARISON: 12/29/2022 FINDINGS: No acute pulmonary opacity is present. There is no evidence of effusion or pneumothorax. Mediastinum is unremarkable. There is a small hiatal hernia. Heart size is enlarged. IMPRESSION: No acute abnormality. Reviewed, Interpreted and Dictated by Pineda Olson MD Transcribed by Marivel Walker Authenticated and [facility]
[2024-03-30 11:53] LABS: VBG Base Excess -7.8 mmol/L (-2.4-2.3); VBG HCO3 19.6 mmol/L (23-30); VBG Oxygen Saturation 59.5 % (50-70); VBG PCO2 46.8 mmol/L (35-51); VBG PH 7.24 mmol/L (7.31-7.41); VBG PO2 35.7 mmol/L (28-40)
[2024-03-30 11:59] LABS: Basophils % 0.7 % (0.1-2.0); Eosinophils # 0.1 K/mm3 (0.0-0.4); Eosinophils % 1.4 % (0.1-12.0); Hematocrit 31.8 % (37.0-47.0); Hemoglobin 9.7 g/dL (12.2-16.2); Lymphocytes # 0.6 K/mm3 (0.7-4.5); Lymphocytes % 10.4 % (10-50); Mean Corpuscular HGB Conc 30.4 g/dL (31.8-35.4); Mean Corpuscular Hemoglobin 26.6 pg (27.0-31.2); Mean Corpuscular Volume 87.6 fl (81-99); Mean Platelet Volume 8.1 fl (7.4-10.4); Monocytes # 0.4 K/mm3 (0.1-1.0); Neutrophils # 4.4 K/mm3 (1.8-7.8); Neutrophils % 80.5 % (37.0-80.0); Platelet Count 277 K/mm3 (142-424); Red Blood Count 3.62 M/mm3 (4.20-5.40); Red Cell Distribution Width 18.4 % (11.5-17.5); White Blood Count 5.4 K/mm3 (4.8-10.8)
--- NOTE | 2024-03-30 11:59 | ED_ITS ---
Discharge Plan Disposition Patient Disposition: Admitted Chief Complaint: Weakness Prescriptions Prescriptions: No Action paroxetine HCl 20 mg tablet 20 mg PO DAILY 90 Days Qty: 90 0RF isosorbide mononitrate 30 mg tablet extended release 24 hr 30 mg PO DAILY Qty: 30 4RF bumetanide 1 mg tablet 1 mg PO DAILY Qty: 90 2RF levothyroxine 25 mcg tablet 25 mcg PO DAILY Rx Instructions: TAKE 1 TABLET BY MOUTH ONCE DAILY Eliquis 2.5 mg tablet 2.5 mg PO BID Rx Instructions: TAKE 1 TABLET BY MOUTH TWICE DAILY carvedilol 12.5 mg tablet 12.5 mg PO BID cefdinir 300 mg capsule 300 mg PO BID Qty: 8 0RF levofloxacin 750 mg tablet 750 mg PO DAILY 3 Days Qty: 3 0RF omeprazole 20 MG capsule,delayed release(DR/EC) 20 mg PO DAILY Referrals Follow up/Referrals: Jeremy Pride MD [Primary Care Provider] - See instructions Clinical Impressions Clinical Impression: Generalized weakness, Pneumonia, Delirium Print Language Print Language: Filipino Discharge ED Provider: Daniel Tao General Adult HPI General Chief complaint: Weakness Stated complaint: low vitals refer from sarah Time Seen by Provider: 03/30/24 11:42 Mode of Arrival: Wheelchair Source of Information: Patient and Relative Limitations: No Limitations Description of Symptoms (Recalled from ER Triage Doc. by RN): w eakness,dizzy,hypotension,low pulse ox History of Present Illness HPI narrative: Please note that above description of symptoms, in this electronic medical record under categorization of recalled from ER triage doctor by RN are reflective of an initial nursing assessment, however, is not reflective of my full history and physical exam that was personally taken and clarified. Consequentially, this preceding description of symptoms, which may include the patient's categorized chief complaint in the EMR, do not reflect my personal clinical impression, and the ultimate description of history of present illness and patient stated complaints should be deferred to this section of the note. Unless stated otherwise or congruent with this section of the note, additional signs, symptoms, or incongruence should be interpreted as inaccurate with my clinical impression. Related Data Home Medications ?Medication ?Instructions ?Recorded ?Confirmed omeprazole 20 mg capsule,delayed 20 mg PO DAILY Acid reflux 12/01/20 03/01/24 release apixaban 2.5 mg tablet (Eliquis) 2.5 mg PO BID Blood thinner, AFib 12/29/22 03/01/24 carvedilol 12.5 mg tablet 12.5 mg PO BID AFib 12/29/22 03/01/24 levothyroxine 25 mcg tablet 25 mcg PO DAILY Thyroid 12/29/22 03/01/24 Previous Rx's ?Medication ?Instructions ?Recorded paroxetine HCl 20 mg tablet 20 mg PO DAILY Depression 90 days 04/08/22 #90 tabs cefdinir 300 mg capsule 300 mg PO BID #8 caps 01/01/23 levofloxacin 750 mg tablet 750 mg PO DAILY 3 days #3 tabs 01/01/23 isosorbide mononitrate 30 mg 30 mg PO DAILY High blood pressure 08/06/23 tablet,extended release 24 hr #30 tabs bumetanide 1 mg tablet 1 mg PO DAILY #90 tabs 11/18/23 Allergies Allergy/AdvReac Type Severity Reaction Status Date / Time cefdinir Allergy Severe Hives Verified 01/01/23 22:47 iodine [IODINE] Allergy Severe S-ANAPHYLAX Verified 05/07/22 09:35 IS Sulfa (Sulfonamide Allergy Severe I-HIVES Verified 05/07/22 09:35 Antibiotics) [SULFA (SULFONAMIDE ANTIBIOTICS)] Penicillins [PENICILLINS] Allergy Intermediate I-RASH Verified 05/07/22 09:35 codeine [CODEINE] Allergy Unknown NA-HALLUCIN Verified 05/07/22 09:35 ATIONS hydrogen peroxide Allergy Unknown Verified 05/07/22 09:35 [facility] Disclaimer: The information contained in this section may have been updated after the patient was seen, as this information can be updated by other users. Medical History Acquired hypothyroidism Acute hypoxemic respiratory failure Acute on chronic diastolic CHF (congestive heart failure) Anemia requiring transfusions Anticoagulated on Coumadin Aortic stenosis Atrial fibrillation CAD (coronary artery disease) Cellulitis of left ring finger Chronic anemia CKD (chronic kidney disease) Concussion without loss of consciousness Congestive heart disease COPD (chronic obstructive pulmonary disease) COPD (chronic obstructive pulmonary disease) with acute bronchitis Diverticulitis Facial contusion Gangrene of finger of left hand Gastroenteritis Head contusion Hypotensive episode Hypoxia Junctional bradycardia Normal colonoscopy Pleural effusion Rapid atrial fibrillation Renal insufficiency Respiratory failure with hypoxia SIRS (systemic inflammatory response syndrome) Subungual hematoma of left ring finger TIA (transient ischemic attack) Surgical History Hx of cholecystectomy S/P lumpectomy, left breast Status post total hip replacement, right Family History Other Family history of diabetes mellitus type II Family history of hypertension Social History Smoking Status: Never smoker second hand exposure: No alcohol intake: never counseling given: No substance use type: denies use current occupational status: retired Travel in the last 8 weeks: None household members: none housing: apartment caffeine: Yes ROS Obtained: Yes All systems reviewed & no additional complaints except as documented Physical Exam General General appearance: alert and in no apparent distress Head Head exam: atraumatic and normocephalic Eye Eye exam: Present normal appearance, PERRL and EOMI ENT ENT exam: Present mucous membranes dry Neck Neck exam: Present normal inspection, full ROM and trachea midline Respiratory Respiratory exam: Absent respiratory distress, wheezes, stridor, accessory muscle use or prolonged expiratory phase Cardiovascular Cardiovascular exam: Present regular rate, irregular rhythm and other (Pulses equal symmetric in upper and lower extremities) Abdominal Exam Abdominal exam: Present soft; Absent distention, tenderness or pulsatile mass Extremities Exam Extremities exam: Absent edema Neurological Exam Neurological exam: Present alert, oriented X3 and CN II-XII intact; Absent motor sensory deficit Skin Skin exam: Present warm and dry; Absent diaphoresis or erythema Medical Decision Making Medical Records Medical records reviewed: Yes I reviewed the patient's medical records. Dirk Inquiry Pt receiving controlled substance: No Dirk was queried for this patient: No Vital Signs: 03/30/24 11:33 03/30/24 11:39 03/30/24 12:00 Temperature 98 F Temperature Source Oral Pulse Rate 96 H 105 H Pulse Rate [Right] 102 H Respiratory Rate 18 Blood Pressure 98/64 L 110/68 Blood Pressure [Right Arm] 98/64 L Blood Pressure Mean 75 81 Blood Pressure Mean [Right Arm] 75 02 Sat by Pulse Oximetry 85 L 95 97 Oxygen Delivery Method Room Air Nasal Cannula Nasal Cannula Oxygen Flow Rate (LPM) 2 2 03/30/24 12:28 03/30/24 13:01 Temperature Temperature Source Pulse Rate 82 76 Pulse Rate [Right] Respiratory Rate Blood Pressure 121/71 125/65 Blood Pressure [Right Arm] Blood Pressure Mean 81 Blood Pressure Mean [Right Arm] 02 Sat by Pulse Oximetry 98 95 Oxygen Delivery Method Room Air Nasal Cannula Oxygen Flow Rate (LPM) 2 Lab Data Lab Results 03/30/24 11:37: WBC 5.4, RBC 3.62 L, Hgb 9.7 L, Hct 31.8 L, MCV 87.6, MCH 26.6 L , MCHC 30.4 L, RDW 18.4 H, Plt Count 277, MPV 8.1, Neut % (Auto) 80.5 H, Lymph % (Auto) 10.4, [place] % (Auto) 7.0, Eos % (Auto) 1.4, Baso % (Auto) 0.7, Neut # (Auto) 4.4, Lymph # (Auto) 0.6 L, [place] # (Auto) 0.4, Eos # (Auto) 0.1, Baso # (Auto) 0.0, Sodium 141, Potassium 4.6, Chloride 111 H, Carbon Dioxide 24, Anion Gap 10.6, BUN 49 H, Creatinine 3.20 H, Estimated Creat Clear 16, Estimated GFR 14 L*, Est GFR ( Amer) 17 L*, Glucose 105 H, Calcium 9.3, Total Bilirubin 0.3, AST 21, ALT 11 L, Alkaline Phosphatase 216 H, Total Protein 6.1 L, Albumin 3.6, Globulin 2.5, Albumin/Globulin Ratio 1.4 03/30/24 11:46: VBG pH 7.24 L, VBG pCO2 46.8, VBG pO2 35.7, VBG HCO3 19.6 L, VBG Total CO2 21.0 L, VBG O2 Saturation 59.5, VBG Base Excess -7.8 L, VBG Lactic Acid 2.0 03/30/24 13:15: Urine Color Yellow, Urine Appearance Clear, Urine pH 6.0, Ur Specific Pierre 1.020, Urine Protein Negative, Urine Glucose (UA) Negative, Urine Ketones Negative, Urine Blood Negative, Urine Nitrate Negative, Urine Bilirubin Negative, Urine Urobilinogen 0.2, Ur Leukocyte Esterase Negative, Urine RBC None, Urine WBC Occasional, Ur Squamous Epith Cells 5-10, Urine Bacteria Trace 03/30/24 11:37 03/30/24 11:37 Orders (Tests/Meds): ED MEDICATIONS Generic Name Dose Route Start Last Admin Trade Name Freq PRN Reason Stop Dose Admin Lactated Ringer's 1,710 mls @ 855 mls/hr 03/30/24 12:29 03/30/24 13:21 Lactated Ringer's 1000 Ml Bag 30 ml/kg infuse over 2 hr (1710 ml) 03/30/24 14:28 855 mls/hr IV Administration .Q2H ONE Discontinued Medications Generic Name Dose Route Start Last Admin Trade Name Freq PRN Reason Stop Dose Admin Lactated Ringer's 1,000 mls @ 999 mls/hr 03/30/24 11:52 03/30/24 12:01 Lactated Ringer's 1000 Ml Bag IV 03/30/24 12:52 999 mls/hr .Q1H1M ONE Administration Levofloxacin/Dextrose 250 mg in 50 mls @ 100 mls/hr 03/30/24 12:28 03/30/24 13:20 Levaquin 250mg/50ml Premix IV 03/30/24 12:57 100 mls/hr ONCE ONE Administration ORDERS Category Date Time Status CXR --portable [XR chest portable] Stat Exams 03/30/24 11:52 Completed Complete Blood Count Auto Diff Stat Lab 03/30/24 11:37 Completed Comprehensive Metabolic Panel Stat Lab 03/30/24 11:37 Completed UA [Urinalysis and Microscopic] Stat Lab 03/30/24 13:15 Completed Blood Culture Stat Micro 03/30/24 13:09 Received VBG [Venous Blood Gas] Stat RT 03/30/24 11:46 Completed Medical Decision Narrative: This is an 88-year-old female history of chronic iron deficiency and blood loss anemia of unknown origin receiving intermittent iron transfusions and Red cell infusions, hypertension, hyperlipidemia, COPD not currently smoking and on 2 L nasal cannula, CHF, A-fib on Eliquis, CKD presenting with fatigue, intermittent confusion. Per family and patient, this has been going on for few days. Patient has not been wearing her oxygen at home as she should. Had a follow-up today, 03/30 with primary care provider because patient states that she had red blood cell transfusion last week and this was her follow-up. Patient denies bloody stools, tarry stools, dysuria, hematuria. She does state that she has been nauseated without vomiting. Cough productive of frothy white sputum, which is normal for her. Family states the patient is intermittently confused, but generally oriented. Patient also has complaint of left flank pain versus left paraspinal muscle tenderness with knots. History was obtained via conversation with patient and family. On arrival, patient hemodynamically stable, alert, [oriented x4, ][appropriate, ]GCS [15], moving all extremities spontaneously, pupils equal and reactive to light. Full physical exam performed and significant for [Other relevant findings/NIHSS]. Differential includes []. Patient placed on continuous cardiac monitoring and continuous pulse ox with initial blood pressure 94/64, heart rate 104, saturation 85% on room air, 95 on nasal cannula 2 L. Patient was given 2 g ceftriaxone, fluid bolus for symptomatic management[ and correction of underlying abnormalities]. Workup independently interpreted and significant for nonactionable CBC. Hemoglobin 9.7 up from 7.2 a few weeks ago chemistry concerning for HAZEL on CKD with creatinine 3.2 and BUN 49 intrarenal. GFR 14 today. Patient able to produce urine, urinalysis unremarkable. Chest x-ray with concern for possible retrocardiac consolidation without discrete pulmonary edema or cephalization. See radiology read for full review of final results. Based on this, patient given sepsis bolus and ceftriaxone out of concern for infectious delirium in the setting waxing and waning confusion, weakness. On reevaluation, patient's blood pressure and heart rate have improved with fluids. 125/65, pulse of 76, still 95% on 2 L nasal cannula. Conversation with family regarding outpatient follow- up versus inpatient admission, opting for inpatient admission for monitoring of kidney function and improvement. I feel this is reasonable. I talked to hospital medicine, he is agreeable to admission. Because patient high risk for clinical decompensation, deemed appropriate for inpatient admission. Results were relayed to patient who voiced understanding and patient was agreeable to inpatient admission and management. Patient was admitted to the hospital for further definitive management. Assembly Member disclaimer Much of this encounter note is an electronic police clerk spoken language to printed text. Electronic police clerk of the spoken language may permit errors. Although I have reviewed the note, some errors may still exist. Critical Care Critical Care Time Critical Care Time: No
[2024-03-30 12:00] LABS: Chloride 111 mmol/L (98-107); Sodium 141 mmol/L (136-145)
[2024-03-30 12:01] LABS: Potassium 4.6 mmoL/L (3.5-5.1)
[2024-03-30] MEDS: LACTATED RINGERS 1000ML 1,000 ML 999 ML IV (12:01)
[2024-03-30 12:03] LABS: Alanine Aminotransferase 11 U/L (12-78); Alkaline Phosphatase 216 U/L (38-126); Anion Gap 10.6 mEq/L (5-15); Aspartate Amino Transferase 21 U/L (14-36); Bilirubin,Total 0.3 mg/dl (0.2-1.3); Blood Urea Nitrogen 49 mg/dl (7-17); Carbon Dioxide 24 mmol/L (22.0-30.0); Creatinine Clearance Estimated 16 mL/min (50-200); Estimated Glomerular Filt Rate 14 ml/min (>60); GFR (African American) 17 ML/MIN (>60)
[2024-03-30 12:04] LABS: Albumin Level 3.6 g/dl (3.5-5.0); Albumin/Globulin Ratio 1.4 (1.1-1.8); Calcium 9.3 mg/dl (8.4-10.2); Globulin 2.5 g/dL (1.3-3.2); Glucose 105 mg/dl (74-100); Total Protein,Serum 6.1 g/dl (6.3-8.2)
--- NOTE | 2024-03-30 13:03 | PC.NURSE ---
1st blood culture sent to lab.
--- NOTE | 2024-03-30 13:17 | PC.NURSE ---
urine sent to lab
[2024-03-30 13:19] LABS: Microscopic, Urine URINE MICROSCOPIC (MICROSCOPIC)
[2024-03-30] MEDS: LEVOFLOXACIN/D5W 250 MG/50 ML PIGGYBACK 100 MG IV (13:20)
[2024-03-30] MEDS: LACTATED RINGERS 1000ML 1,710 ML 855 ML IV (13:21)
[2024-03-30 13:29] LABS: Appearance,Urine CLEAR (Clear); Bilirubin,Urine Negative (Negative); Blood, Urine Negative (Negative); Color,Urine YELLOW (Yellow); Glucose,Urine (UA) Negative (Negative); Ketones,Urine Negative (Negative); Leukocyte Esterase,Urine Negative (Negative); Nitrate,Urine Negative (Negative); Protein,Urine Negative (Negative); Urobilinogen,Urine 0.2 EU/dl (0.2)
[2024-03-30 14:11] LABS: Bacteria,Urine Trace /lpf; WBC,Urine Occasional #/hpf (0-3)
--- NOTE | 2024-03-30 14:25 | PC.NURSE ---
[employer] MACHINE SETTER NOTIFIED OF ADMISSION
--- NOTE | 2024-03-30 14:39 | HMH.PHAINT1 ---
Pharmacy Intervention Comments: MEDICATION RECONCILIATION COMPLETED ON PATIENT USING EXTERNAL FILL HISTORY FROM PHARMACY. -[facility]
--- NOTE | 2024-03-30 14:42 | P.HP_ITS ---
History of Present Illness *Admission Date: 03/30/24 *Reason for visit:: confusion *History of present illness: Ms. Bassett is an 88-year-old female with history of A-fib, heart failure, hypothyroid, chronic anemia who presented to the ER with reported weakness, dizziness, hypotension with her daughter. She has a history of COPD and supposed to wear 2 L nasal cannula, does not wear it consistently per her report. Per the patient's family on arrival to the ER, she has been somewhat more confused over the past few days to week. Was seen by her primary care today and due to her confusion and weakness, recommended she come to the ER for further eval and management. She received a transfusion last week and was following up for repeat labs. Denies any melena, hematochezia, bloody stools. States however she has had some upset stomach mild nausea without emesis. Minimal cough. De nies any fever, chest pain, syncope. On evaluation in the ER, she was satting 85% on room air. Sats in the 90s on 2 L nasal cannula oxygen. Received 2 g of antibiotics for concern for possible pneumonia on chest imaging. White cell count normal. Hemoglobin 9.7, up from 7.2 a few weeks ago. Also noted to have HAZEL on CKD with creatinine of 3.2 up from her baseline of 2.6. Medicine consulted for admission and further management of her HAZEL and anemia and possible pneumonia. Prior to arrival to the floor obtain a CT to evaluate for CHF versus pneumonia given the very large cardiac silhouette on chest imaging. Patient pleasant on interview. Recognizes me from prior care in the outpatient setting several years ago. No bloody bowel movements. [facility] Disclaimer: The information contained in this section may have been updated after the patient was seen, as this information can be updated by other users. Medical History Normal colonoscopy Respiratory failure with hypoxia TIA (transient ischemic attack) Rapid atrial fibrillation Diverticulitis Anemia requiring transfusions Acute hypoxemic respiratory failure Acute on chronic diastolic CHF (congestive heart failure) SIRS (systemic inflammatory response syndrome) Aortic stenosis COPD (chronic obstructive pulmonary disease) with acute bronchitis Hypotensive episode COPD (chronic obstructive pulmonary disease) Hypoxia Subungual hematoma of left ring finger Gangrene of finger of left hand Acquired hypothyroidism Atrial fibrillation CKD (chronic kidney disease) CAD (coronary artery disease) Cellulitis of left ring finger Gastroenteritis Concussion without loss of consciousness Head contusion Facial contusion Congestive heart disease Pleural effusion Chronic anemia Renal insufficiency Anticoagulated on Coumadin Junctional bradycardia Surgical History Hx of cholecystectomy S/P lumpectomy, left breast Status post total hip replacement, right Family History Other Family history of diabetes mellitus type II Family history of hypertension Social History Smoking Status: Never smoker second hand exposure: No alcohol intake: never counseling given: No substance use type: denies use current occupational status: retired Travel in the last 8 weeks: None household members: none housing: apartment caffeine: Yes Review of Systems Review of Systems Review of systems (narrative): 14 point review of systems performed, pertinent positives and negatives as per [facility] Meds Home Medications and Allergies Home Medications ?Medication ?Instructions ?Recorded ?Confirmed ?Type omeprazole 20 mg capsule,delayed 20 mg PO DAILY 12/01/20 03/30/24 History release apixaban 2.5 mg tablet (Eliquis) 2.5 mg PO BID AFib 12/29/22 03/30/24 History carvedilol 12.5 mg tablet 12.5 mg PO BID 12/29/22 03/30/24 History levothyroxine 25 mcg tablet 25 mcg PO DAILY 12/29/22 03/30/24 History bumetanide 1 mg tablet 1 mg PO DAILY #90 tabs 11/18/23 03/30/24 Rx cyanocobalamin (vitamin B-12) 1,000 mcg IM WEEKLY 03/30/24 03/30/24 History 1,000 mcg/mL injection solution isosorbide mononitrate 30 mg 30 mg PO DAILY 03/30/24 03/30/24 History tablet,extended release 24 hr paroxetine HCl 20 mg tablet 20 mg PO DAILY 03/30/24 03/30/24 History sacubitril 24 mg-valsartan 26 mg 1 tab PO BID 03/30/24 03/30/24 History tablet (Entresto) New Prescriptions to Start Prescriptions: Allergies Allergy/AdvReac Type Severity Reaction Status Date / Time cefdinir Allergy Severe Hives Verified 01/01/23 22:47 iodine [IODINE] Allergy Severe S-ANAPHYLAX Verified 05/07/22 09:35 IS Sulfa (Sulfonamide Allergy Severe I-HIVES Verified 05/07/22 09:35 Antibiotics) [SULFA (SULFONAMIDE ANTIBIOTICS)] Penicillins [PENICILLINS] Allergy Intermediate I-RASH Verified 05/07/22 09:35 codeine [CODEINE] Allergy Unknown NA-HALLUCIN Verified 05/07/22 09:35 ATIONS hydrogen peroxide Allergy Unknown Verified 05/07/22 09:35 Exam Data for Last 24 hours Vital signs and Labs for Last 24 Hours: Temp Pulse Resp BP Pulse Ox O2 Del Method O2 Flow Rate 98 F 76 18 125/65 95 Nasal Cannula 2 03/30/24 11:33 03/30/24 13:01 03/30/24 11:33 03/30/24 13:01 03/30/24 13:01 03/30/24 13:01 03/30/24 13:01 Laboratory Results - last 24 hr 03/30/24 11:37: WBC 5.4, RBC 3.62 L, Hgb 9.7 L, Hct 31.8 L, MCV 87.6, MCH 26.6 L , MCHC 30.4 L, RDW 18.4 H, Plt Count 277, MPV 8.1, Neut % (Auto) 80.5 H, Lymph % (Auto) 10.4, Nicholas % (Auto) 7.0, Eos % (Auto) 1.4, Baso % (Auto) 0.7, Neut # (Auto) 4.4, Lymph # (Auto) 0.6 L, Nicholas # (Auto) 0.4, Eos # (Auto) 0.1, Baso # (Auto) 0.0, Sodium 141, Potassium 4.6, Chloride 111 H, Carbon Dioxide 24, Anion Gap 10.6, BUN 49 H, Creatinine 3.20 H, Estimated Creat Clear 16, Estimated GFR 14 L*, Est GFR ( Amer) 17 L*, Glucose 105 H, Calcium 9.3, Total Bilirubin 0.3, AST 21, ALT 11 L, Alkaline Phosphatase 216 H, Total Protein 6.1 L, Albumin 3.6, Globulin 2.5, Albumin/Globulin Ratio 1.4 03/30/24 11:46: VBG pH 7.24 L, VBG pCO2 46.8, VBG pO2 35.7, VBG HCO3 19.6 L, VBG Total CO2 21.0 L, VBG O2 Saturation 59.5, VBG Base Excess -7.8 L, VBG Lactic Acid 2.0 03/30/24 13:15: Urine Color Yellow, Urine Appearance Clear, Urine pH 6.0, Ur Specific [place] 1.020, Urine Protein Negative, Urine Glucose (UA) Negative, Urine Ketones Negative, Urine Blood Negative, Urine Nitrate Negative, Urine Bilirubin Negative, Urine Urobilinogen 0.2, Ur Leukocyte Esterase Negative, Urine RBC None, Urine WBC Occasional, Ur Squamous Epith Cells 5-10, Urine Bacteria Trace I & O for Last 24 hours: Intake & Output 03/27/24 03/28/24 03/29/24 03/30/24 23:59 23:59 23:59 23:59 Weight 85.729 kg Constitutional Constitutional: no acute distress, obese and chronically ill appearing *Routine HEENT Exam Head: Present normocephalic Eye: Present EOMI and PERRL ENT: Present mucous membranes moist *Routine Neck Exam Neck: Present supple; Absent lymphadenopathy *Routine Respiratory Exam Respiratory: Present prolonged expiratory phase and crackles (Fine in posterior bases posterior lung [place]); Absent rhonchi or wheezes *Routine Cardiovascular Exam Cardiovascular: Present irregularly irregular *Routine Abdominal Exam Abdominal: Present soft and normoactive bowel sounds; Absent tenderness *Routine Rectal Exam Rectal:: deferred *Routine Genitalia Exam Genitalia:: deferred *Routine Extremities Exam Extremities: Absent cyanosis, clubbing or edema *Routine Skin Exam Skin: Present warm; Absent rash *Routine Neurological Exam Neurological: Present alert and moving all extremities; Absent altered mental status Comments: Oriented to self and place. When asked questions, she will answer appropriately and then trail off into unrelated information with wandering conversation Assessment and Plan *Assessment and plan (1) HAZEL (acute kidney injury): Status: Acute Category: Medical Code(s): N17.9 - Acute kidney failure, unspecified (2) Generalized weakness: Status: Acute Category: Medical Code(s): R53.1 - Weakness (3) Respiratory failure with hypoxia: Status: Acute Qualifiers: Chronicity: acute on chronic Qualified Code(s): J96.21 - Acute and chronic respiratory failure with hypoxia Category: Medical Code(s): J96.91 - Respiratory failure, unspecified with hypoxia (4) Acquired hypothyroidism: Status: Chronic Category: Medical Code(s): E03.9 - Hypothyroidism, unspecified (5) Atrial fibrillation: Status: Chronic Qualifiers: Atrial fibrillation type: longstanding persistent Qualified Code(s): I48.11 - Longstanding persistent atrial fibrillation Category: Medical Code(s): I48.91 - Unspecified atrial fibrillation (6) CKD (chronic kidney disease): Status: Chronic Qualifiers: Chronic kidney disease stage: unspecified stage Qualified Code(s): N18.9 - Chronic kidney disease, unspecified Category: Medical Code(s): N18.9 - Chronic kidney disease, unspecified (7) CAD (coronary artery disease): Status: Chronic Qualifiers: Coronary Disease-Associated Artery/Lesion type: jackson artery [place] vs. transplanted heart: jackson heart Associated angina: without angina Qualified Code(s): I25.10 - Atherosclerotic heart disease of jackson coronary artery without angina pectoris Category: Medical Code(s): I25.10 - Atherosclerotic heart disease of jackson coronary artery without angina pectoris (8) Chronic anemia: Status: Chronic Category: Medical Code(s): D64.9 - Anemia, unspecified Plan 88-year-old female with multiple complex medical conditions including A-fib, chronic hypoxemic respiratory failure, hypothyroid, COPD, CKD 4. Presented to the ER with anemia, confusion, HAZEL on CKD. Discussed case with ER, request admission for serial labs to monitor kidney function, gentle hydration, and further management of possible pneumonia. I agreed to admit for further management. CT obtained prior to arriving to the floor. Per my review shows enlarged heart but no focal consolidation. She also proceeded to have a bloody bowel movement. Repeat hemoglobin pending. Problems addressed as follows: Confusion Anemia HAZEL CKD 4 -Received IV fluids in the ER. Will hold on further fluid resuscitation. High risk for volume overload -Creatinine 3.2, baseline 2.6. BUN 49. Repeat CBC, CMP, magnesium ordered for the morning - Hemoglobin 9.7, up from 7.2 a few weeks ago -Due to bloody BM, repeat H&H pending. Hemoglobin transfusion threshold less than 7. -Holding anticoagulation COPD/respiratory failure. Chronic in nature. Continue supplemental oxygen for goal sats greater than 90%. Currently on baseline 2 L. - Received Levaquin once in the ER, low concern to continue based on no consolidation on chest imaging. Hypothyroid: Continue levothyroxine 25 mcg daily Anxiety: Continue Paxil 20 mg daily Hypertension/heart failure: Continue Entresto 1 tab twice daily. Resume Bumex 1 mg daily A-fib: Continue carvedilol 12.5 mg twice daily Monitor for prevent mentation. Further workup pending morning labs and improvement in kidney function. Will consider surgical consult and possible colonoscopy if continues to have bloody stools. Full code Holding anticoagulation in setting of anemia and bloody BM Low sodium diet
--- NOTE | 2024-03-30 14:42 | CT_ITS ---
FINAL REPORT CLINICAL HISTORY: eval for pneumonia COMPARISON: 03/01/2021 FINDINGS: CT CHEST without contrast TECHNIQUE: Axial CT without contrast This study was performed with techniques to keep radiation doses as low as reasonably achievable, (ALARA). Individualized dose reduction techniques using automated exposure control or adjustment of mA and/or kV according to the patient's size were employed. There are chronic changes on the lung apices, likely sequela from previous pneumonia seen on the prior exam. Lower lobe infiltrates have since resolved. There is a new nodular density in the left lower lobe best seen on image 45 measuring 18 x 18 mm which could be neoplastic or inflammatory. There is a large hiatal hernia. No pleural or pericardial effusion is seen . No adenopathy or mass lesion is present . IMPRESSION: Interval development of irregular nodular density left lower lobe favored to represent neoplasm over inflammation. Consider PET/CT or short-term CT follow-up in 2 months. Chronic changes in the upper lobes. Reviewed, Interpreted and Dictated by Pineda Olson MD Transcribed by Marivel Walker Authenticated and [facility]
--- NOTE | 2024-03-30 15:10 | PC.NURSE ---
report called to 2nd [facility]
--- NOTE | 2024-03-30 15:34 | PC.NURSE ---
Pt arrived to the floor at this time via w/c
[2024-03-30 16:57] LABS: NT Pro Brain Natriuretic Pep. 8650 pg/mL (0-450)
--- NOTE | 2024-03-30 18:05 | PC.NURSE ---
Contacted daughter about bring pts home medications in, daughter stated she worked tomorrow but would try to bring them in the morning.
--- NOTE | 2024-03-30 18:23 | PC.NURSE ---
Joeclyn asked this RN to come assess pt. When patient peed it was noted to be geovanni red and a moderate amount. made aware. He stated to hold anti coags at this time
[2024-03-30] MEDS: PANTOPRAZOLE 40MG TABLET 40 MG PO (20:00)
[2024-03-30] MEDS: CARVEDILOL 12.5MG TABLET 12.5 MG PO (20:01)
[2024-03-30 22:00] LABS: Hemoglobin 8.3 g/dL (12.2-16.2)
[2024-03-30 22:01] LABS: Hematocrit 27.4 % (37.0-47.0)
[2024-03-31 04:00] VITALS: BP 114/63; PULSE 64; RESP 16; TEMP 36.6; O2SAT 92; BMI 31.8
--- NOTE | 2024-03-31 04:54 | PC.NURSE ---
Addendum entered by Roxana Joe RN 03/31/24 04:56: Pt tolerating 2L NC, O2 sat >90%. Lung sounds diminished. Original Note: Pt is alert and oriented. Ambulates to the restroom with one assist. Blood noted in the toilet when using the bathroom, on exam from [employer], noted to come from the rectum. Pt has had no other signs of bleeding since beginning of shift. Pt has had no bowel movement. No complaints from patient. Bed alarm on. Call light in reach.
[2024-03-31 07:09] LABS: Alanine Aminotransferase 11 U/L (12-78); Albumin Level 2.8 g/dl (3.5-5.0); Albumin/Globulin Ratio 1.3 (1.1-1.8); Alkaline Phosphatase 169 U/L (38-126); Anion Gap 8.6 mEq/L (5-15); Aspartate Amino Transferase 19 U/L (14-36); Bilirubin,Total 0.5 mg/dl (0.2-1.3); Blood Urea Nitrogen 49 mg/dl (7-17); Calcium 9.1 mg/dl (8.4-10.2); Carbon Dioxide 22 mmol/L (22.0-30.0); Chloride 110 mmol/L (98-107); Creatinine Clearance Estimated 20 mL/min (50-200); Estimated Glomerular Filt Rate 17 ml/min (>60); GFR (African American) 21 ML/MIN (>60); Globulin 2.2 g/dL (1.3-3.2); Glucose 93 mg/dl (74-100); Magnesium 1.7 mg/dl (1.6-2.3); Potassium 4.6 mmoL/L (3.5-5.1); Sodium 136 mmol/L (136-145)
[2024-03-31 07:37] VITALS: BP 130/80; PULSE 105; RESP 18; TEMP 36.7; O2SAT 97
[2024-03-31] MEDS: APIXABAN 5MG TABLET 2.5 MG PO (07:56)
[2024-03-31] MEDS: PARoxetine 20MG TABLET 20 MG PO (07:56)
[2024-03-31] MEDS: LEVOTHYROXINE 25MCG (0.025MG) TAB 25 MCG PO (07:57)
[2024-03-31] MEDS: CARVEDILOL 12.5MG TABLET 12.5 MG PO ×2 (07:57→20:00)
[2024-03-31] MEDS: ISOSORBIDE MONO 30MG TAB.ER.24H 30 MG PO (07:57)
[2024-03-31 08:01] LABS: Basophils % 0.7 % (0.1-2.0); Eosinophils # 0.1 K/mm3 (0.0-0.4); Eosinophils % 3.2 % (0.1-12.0); Hematocrit 26.5 % (37.0-47.0); Lymphocytes # 0.6 K/mm3 (0.7-4.5); Lymphocytes % 16.8 % (10-50); Mean Corpuscular HGB Conc 30.1 g/dL (31.8-35.4); Mean Corpuscular Volume 86.6 fl (81-99); Mean Platelet Volume 8.3 fl (7.4-10.4); Monocytes # 0.4 K/mm3 (0.1-1.0); Monocytes % 11.4 % (1.7-9.3); Neutrophils # 2.6 K/mm3 (1.8-7.8); Platelet Count 226 K/mm3 (142-424); Red Blood Count 3.06 M/mm3 (4.20-5.40); Red Cell Distribution Width 18.4 % (11.5-17.5); White Blood Count 3.8 K/mm3 (4.8-10.8)
[2024-03-31] MEDS: BUMETANIDE 1 MG TABLET PO (08:15)
[2024-03-31 08:56] LABS: Hematocrit 26.3 % (37.0-47.0); Hemoglobin 8.1 g/dL (12.2-16.2)
--- NOTE | 2024-03-31 09:43 | HMH.OTEV ---
OT Inpatient Evaluation Rehab OT IP Evaluation Start: 03/31/24 08:23 Freq: ONCE Status: Active Protocol: Document 03/31/24 09:35 [facility] (Rec: 03/31/24 09:42 [facility] [id number]) Rehab OT IP Assessment Subjective History Pt oriented x 3 on arrival. Pt agreeable to engage in therapy evaluation. Pt admitted on 03/30/24 due to HAZEL and weakness. History and Physical report: Ms. Bassett is an 88-year-old female with history of A-fib, heart failure, hypothyroid, chronic anemia who presented to the ER with reported weakness, dizziness, hypotension with her daughter. She has a history of COPD and supposed to wear 2 L nasal cannula, does not wear it consistently per her report. Per the patient's family on arrival to the ER, she has been somewhat more confused over the past few days to week . Was seen by her primary care today and due to her confusion and weakness, recommended she come to the ER for further eval and management. She received a transfusion last week and was following up for repeat labs. Denies any melena, hematochezia, bloody stools. States however she has had some upset stomach mild nausea without emesis. Minimal cough. Denies any fever, chest pain, syncope. On evaluation in the ER, she was satting 85% on room air. Sats in the 90s on 2 L nasal cannula oxygen. Received 2 g of antibiotics for concern for possible pneumonia on chest imaging. White cell count normal. Hemoglobin 9.7, up from 7.2 a few weeks ago. Also noted to have HAZEL on CKD with creatinine of 3.2 up from her baseline of 2.6. Medicine consulted for admission and further management of her HAZEL and anemia and possible pneumonia. Subjective I have been feeling bad for about a month. Pt reports prior to being in the hospital, she lived alone in a ground level apartment. Pt reports normally she is independent with all ADLS. However, within the past month , pt has required assistance with IADLS especially cleaning . Pt's daughter has been assisting and she also has a cleaning lady come once a week . Pt does use a rollator during functional transfers. Pt also uses oxygen as needed at home. Objective Patient Orientation Person,Place,Birthday Right Upper Extremity Gross ROM WFL Left Upper Extremity Gross ROM WFL Bed Mobility bed mobility-scooting,bed mobility - supine/sit Assist Level Contact Guard/Hand Hold Transfer Training Sit/Stand Transfer Assist Level Contact Guard/Hand Hold Chair Transfer Ability Contact Guard/Hand Hold Chair Transfer Technique Sit to/from Ambulatory Chair Transfer Assistive Devices Rolling Walker Rehab OT IP prob,goals,plan Problems Date of Evaluation: 03/31/24 OT IP Problems Bed Mobility,Transfers,Balance ,Self care,Safety Rehab Potential Rehab Potential Good Equipment Needs Assistive Devices Rolling / Wheeled Walker Plan OT intervention Plan Bed Mobility,Transfers,Balance ,Self care,Safety,Therapeutic Exercise OT Plan Frequency Daily Duration LOS Discharge Goals Bed Mobility Ability Standby Assistance Sit to Stand Chair Transfer Ability Supervision/Stand by Chair Transfer Ability Supervision/Stand by Chair Transfer Technique Sit to/from Ambulatory Chair Transfer Assistive Devices Rolling Walker Feeding Ability Assist with Tray Set Up Lower Body Dressing Ability Minimal Assistance Upper Body Dressing Ability Independent Bathing Ability Minimal Assistance Performing Toilet Hygiene Ability Minimal Assistance Overall Commode/Toilet Transfer Ability Standby Assistance Commode/Toilet Transfer Technique Sit to/from Ambulatory Oral Care Assist Standby Assistance Decrease in Endurance Yes Discharge Plan OT Discharge Plan Pt will continue to be seen for OT services while at [facility]. Pt would benefit most from short term rehab at SNF following hospital stay. Pt reports if she returns home she will not have much assistance because her daughter still works fulltime. Continued skilled therapy is important for patient to improve strength, safety, endurance, ADL independence, and functional transfers to reach PLOF. Eval Complexity Eval Charge Codes 68312 - Moderate Complexity PHYSICIAN CERTIFICATION: I certify the specified therapy services for Aileen Bassett are required, authorized, and reviewed every 30 days.
--- NOTE | 2024-03-31 09:49 | HMH.PTEV ---
Physical Therapy Evaluation Rehab PT IP Evaluation Start: 03/31/24 08:23 Freq: ONCE Status: Active Protocol: Document 03/31/24 09:39 [facility] (Rec: 03/31/24 09:49 [facility] [id number]) Subjective/History History History Per H&P: Ms. Bassett is an 88-year-old female with history of A-fib, heart failure, hypothyroid, chronic anemia who presented to the ER with reported weakness, dizziness, hypotension with her daughter. She has a history of COPD and supposed to wear 2 L nasal cannula, does not wear it consistently per her report. Per the patient's family on arrival to the ER, she has been somewhat more confused over the past few days to week . Was seen by her primary care today and due to her confusion and weakness, recommended she come to the ER for further eval and management. She received a transfusion last week and was following up for repeat labs. Denies any melena, hematochezia, bloody stools. States however she has had some upset stomach mild nausea without emesis. Minimal cough. Denies any fever, chest pain, syncope. On evaluation in the ER, she was satting 85% on room air. Sats in the 90s on 2 L nasal cannula oxygen. Received 2 g of antibiotics for concern for possible pneumonia on chest imaging. White cell count normal. Hemoglobin 9.7, up from 7.2 a few weeks ago. Also noted to have HAZEL on CKD with creatinine of 3.2 up from her baseline of 2.6. Medicine consulted for admission and further management of her HAZEL and anemia and possible pneumonia. Subjective Subjective PLOF per pt report; Lives alone in a single story home with 0 ENOC. IND with mobility using rollator. Has a daughter who lives in town but works FT. Reports worsening weakness but denies any falls in past 30 days. New diagnosis of cancer in past 12 No months? Rehab PT IP Eval Objective Appearance Patient Behavior Appropriate,Cooperative Patient Orientation Person,Place,Birthday, Situation Difficulty following instructions none Speech Pattern Clear Ambulation Patient Able to Ambulate Yes Ambulation Observation IP General Gait Pattern Observation Wide Based Gait Ambulation Distance (feet) 6 Ambulation Assistive Device Rolling Walker Ambulation Ability Contact Guard/Hand Hold Balance Ability to Arise Able, uses arms to help Sitting Balance Steady, safe Standing Balance Steady, wide stance Transfers Bed Transfer Ability Supervision/Stand by Sit to Stand Bed Transfer Ability Contact Guard/Hand Hold Rehab PT IP prob,goals,plan Problems Date of Evaluation: 03/31/24 PT IP Problems Bed Mobility,Transfers,Gait, Balance,Self care,Safety Rehab Potential Rehab Potential Good Equipment Needs Assistive Devices Rolling / Wheeled Walker Plan PT Intervention Plan Bed Mobility,Transfers,Gait, Balance,Safety,Therapeutic Exercise Other Intervention Plan 1-2 times PT Plan Frequency Daily Duration LOS Discharge Goals Bed Transfer Ability Independent Sit to Stand Chair Transfer Ability Supervision/Stand by Ambulation Assistive Device Rolling Walker Ambulation Distance (feet) 15 Discharge Plan PT Discharge Plan Initial physical therapy evaluation performed. Patient presents below baseline at this time in functional mobility, transfers, and strength. Pt required increased time to perform bed mobility but was able to perform with SUP. Pt only able to ambulate ~6ft before needing to sit. Pt with impaired ambulation endurance. D/t these deficits, PT believes pt is not safe to return home alone at this time . PT recommending short-term rehabilitation stay upon d/c from [facility]. If pt does not go to rehab, pt may be able to return home with PT pending improved endurance and mobility. Pt would benefit from skilled PT while at [facility] to prevent further functional decline and maximize safety with mobility. Eval Complexity Eval Charge Codes 08456 - Moderate Complexity PHYSICIAN CERTIFICATION: I certify the specified therapy services for Aileen Bassett are required, authorized, and reviewed every 30 days.
--- NOTE | 2024-03-31 11:26 | CARE MANAGER ---
Addendum entered by Bev Hubbard RN 03/31/24 16:11: Patient was accepted by [facility] and approved by insurance. Likely discharge tomorrow Addendum entered by Bev Hubbard RN 03/31/24 15:17: [facility] is unsure if they have a bed available at this time. [facility] Original Note: PT/OT recommend short term rehab. Patient and daughter agreeable and request either [facility], [facility], or [facility]. [facility] does have bed. Will send information. ANNETTE Matthews
--- NOTE | 2024-03-31 11:59 | EXP.ACUTE.PN ---
Subjective *Date: 03/31/24 *Time: 15:27 Interval history: Patient in bedside chair on exam. States she is feeling little bit better. Had an episode last night with a bloody bowel movement. Hemoglobin was repeated and showed him to be 8.3. Hemoglobin this morning 8.0. Relatively stable. No more bloody bowel movements. Holding blood thinner. Tolerating 2 L nasal cannula oxygen, at her baseline. Alert and oriented today. Kidney function improving. Tolerating p.o. intake. Medical Exam Vital signs and Labs for Last 24 Hours: Vital Signs Temp Pulse Pulse Resp BP BP Pulse Ox 03/31/24 11:46 03/31/24 10:02 03/31/24 08:12 03/31/24 08:00 03/31/24 07:37 98.1 F 105 H 18 130/80 97 03/31/24 06:51 03/31/24 04:55 03/31/24 04:00 97.9 F 64 16 114/63 92 L 03/31/24 03:00 03/31/24 01:00 03/30/24 22:50 03/30/24 20:46 03/30/24 20:00 03/30/24 19:51 98.6 F 102 H 16 131/81 99 03/30/24 18:44 03/30/24 17:00 03/30/24 16:34 03/30/24 15:40 97.9 F 55 L 18 143/94 H 95 03/30/24 15:15 98.0 F 64 18 143/94 H 03/30/24 15:00 64 143/94 H 93 L 03/30/24 14:32 66 135/92 H 94 L 03/30/24 14:01 77 124/75 94 L 03/30/24 13:01 76 125/65 95 03/30/24 12:28 82 121/71 98 03/30/24 12:00 105 H 110/68 97 O2 Del Method O2 Flow Rate 03/31/24 11:46 Nasal Cannula 2 03/31/24 10:02 Nasal Cannula 2 03/31/24 08:12 Nasal Cannula 2 03/31/24 08:00 Nasal Cannula 2 03/31/24 07:37 Nasal Cannula 2 03/31/24 06:51 Nasal Cannula 2 03/31/24 04:55 Nasal Cannula 2 03/31/24 04:00 Nasal Cannula 2 03/31/24 03:00 Nasal Cannula 2 03/31/24 01:00 Nasal Cannula 2 03/30/24 22:50 Nasal Cannula 2 03/30/24 20:46 Nasal Cannula 2 03/30/24 20:00 Nasal Cannula 2 03/30/24 19:51 Nasal Cannula 2 03/30/24 18:44 Room Air 03/30/24 17:00 Room Air 03/30/24 16:34 Room Air 03/30/24 15:40 Nasal Cannula 2 03/30/24 15:15 Nasal Cannula 2 03/30/24 15:00 Nasal Cannula 2 03/30/24 14:32 Nasal Cannula 2 03/30/24 14:01 Nasal Cannula 2 03/30/24 13:01 Nasal Cannula 2 03/30/24 12:28 Room Air 03/30/24 12:00 Nasal Cannula 2 Intake and Output 03/30/24 03/31/24 03/31/24 23:59 07:59 15:59 Intake Total 270 / 570 570 / 570 Output Total 400 / 400 300 / 500 200 / 500 Balance -130 / 170 270 / 70 -200 / 70 Intake: Intake, Oral Amount 270 / 570 570 / 570 Output: Output, Urine Amount 400 / 400 300 / 500 200 / 500 Other: Number of Unmeasured Voids 0 0 Number of Bowel Movements 1 Weight 86.545 kg Patient Weight 03/31/24 23:59 Weight 86.545 kg Laboratory Results - last 24 hr 03/30/24 11:37: WBC 5.4, RBC 3.62 L, Hgb 9.7 L, Hct 31.8 L, MCV 87.6, MCH 26.6 L, MCHC 30.4 L, RDW 18.4 H, Plt Count 277, MPV 8.1, Neut % (Auto) 80.5 H, Lymph % (Auto) 10.4, [place] % (Auto) 7.0, Eos % (Auto) 1.4, Baso % (Auto) 0.7, Neut # (Auto) 4.4, Lymph # (Auto) 0.6 L, [place] # (Auto) 0.4, Eos # (Auto) 0.1, Baso # (Auto) 0.0, Sodium 141, Potassium 4.6, Chloride 111 H, Carbon Dioxide 24, Anion Gap 10.6, BUN 49 H, Creatinine 3.20 H, Estimated Creat Clear 16, Estimated GFR 14 L*, Est GFR ( Amer) 17 L*, Glucose 105 H, Calcium 9.3, Total Bilirubin 0.3, AST 21, ALT 11 L, Alkaline Phosphatase 216 H, NT-Pro-B Natriuret Pep 8650 H, Total Protein 6.1 L, Albumin 3.6, Globulin 2.5, Albumin/Globulin Ratio 1.4 03/30/24 13:15: Urine Color Yellow, Urine Appearance Clear, Urine pH 6.0, Ur Specific [place] 1.020, Urine Protein Negative, Urine Glucose (UA) Negative, Urine Ketones Negative, Urine Blood Negative, Urine Nitrate Negative, Urine Bilirubin Negative, Urine Urobilinogen 0.2, Ur Leukocyte Esterase Negative, Urine RBC None, Urine WBC Occasional, Ur Squamous Epith Cells 5-10, Urine Bacteria Trace 03/30/24 21:08: Hgb 8.3 L D, Hct 27.4 L 03/30/24 23:45: Blood Type O Positive, Antibody Screen Negative 03/31/24 06:14: WBC 3.8 L D, RBC 3.06 L, Hgb 8.0 L, Hct 26.5 L, MCV 86.6, MCH 26.0 L, MCHC 30.1 L, RDW 18.4 H, Plt Count 226, MPV 8.3, Neut % (Auto) 68.0, Lymph % (Auto) 16.8, [place] % (Auto) 11.4 H, Eos % (Auto) 3.2, Baso % (Auto) 0.7, Neut # (Auto) 2.6, Lymph # (Auto) 0.6 L, [place] # (Auto) 0.4, Eos # (Auto) 0.1, Baso # (Auto) 0.0, Sodium 136, Potassium 4.6, Chloride 110 H, Carbon Dioxide 22, Anion Gap 8.6, BUN 49 H, Creatinine 2.60 H, Estimated Creat Clear 20, Estimated GFR 17 L*, Est GFR ( Amer) 21 L D, Glucose 93, Calcium 9.1, Magnesium 1.7, Total Bilirubin 0.5, AST 19, ALT 11 L, Alkaline Phosphatase 169 H, Total Protein 5.0 L, Albumin 2.8 L D, Globulin 2.2, Albumin/Globulin Ratio 1.3 03/31/24 08:48: Hgb 8.1 L, Hct 26.3 L I & O for Labs for Last 24 Hours: Intake & Output 03/28/24 03/29/24 03/30/24 03/31/24 23:59 23:59 23:59 23:59 Intake Total 270 / 570 570 / 570 Output Total 400 / 400 500 / 500 Balance -130 / 170 70 / 70 Weight 85.531 kg 86.545 kg Constitutional: Present no acute distress, obese, chronically ill appearing and cooperative Head: Present atraumatic and normocephalic ENT: Present normal exam Respiratory: Present normal respiratory effort; Absent rhonchi, wheezes or crackles Cardiac: Present Regular Rate Comment:: Irregularly irregular GI: Present soft and normal bowel sounds; Absent distention or tenderness Extremities: Present normal inspection, full ROM and edema (Trace bilateral lower extremity) Skin: Present intact and pallor; Absent erythema Neuro: Present Grossly Intact, alert, awake, oriented x 3 and moves all extremities Assessment and Plan *Assessment and plan (1) HAZEL (acute kidney injury): Status: Acute Category: Medical Code(s): N17.9 - Acute kidney failure, unspecified (2) Acute on chronic anemia: Status: Acute Category: Medical Code(s): D64.9 - Anemia, unspecified (3) Generalized weakness: Status: Acute Category: Medical Code(s): R53.1 - Weakness (4) Respiratory failure with hypoxia: Status: Acute Qualifiers: Chronicity: acute on chronic Qualified Code(s): J96.21 - Acute and chronic respiratory failure with hypoxia Category: Medical Code(s): J96.91 - Respiratory failure, unspecified with hypoxia (5) Acquired hypothyroidism: Status: Chronic Category: Medical Code(s): E03.9 - Hypothyroidism, unspecified (6) Atrial fibrillation: Status: Chronic Qualifiers: Atrial fibrillation type: longstanding persistent Qualified Code(s): I48.11 - Longstanding persistent atrial fibrillation Category: Medical Code(s): I48.91 - Unspecified atrial fibrillation (7) CKD (chronic kidney disease): Status: Chronic Qualifiers: Chronic kidney disease stage: unspecified stage Qualified Code(s): N18.9 - Chronic kidney disease, unspecified Category: Medical Code(s): N18.9 - Chronic kidney disease, unspecified (8) CAD (coronary artery disease): Status: Chronic Qualifiers: Associated angina: without angina Coronary Disease-Associated Artery/Lesion type: [place] artery [place] vs. transplanted heart: [place] heart Qualified Code(s): I25.10 - Atherosclerotic heart disease of [place] coronary artery without angina pectoris Category: Medical Code(s): I25.10 - Atherosclerotic heart disease of [place] coronary artery without angina pectoris (9) Chronic anemia: Status: Chronic Category: Medical Code(s): D64.9 - Anemia, unspecified Plan 88-year-old female with multiple complex medical conditions including A-fib, chronic hypoxemic respiratory failure, hypothyroid, COPD, CKD 4. Presented to the ER with anemia, confusion, HAZEL on CKD. Discussed case with ER, request admission for serial labs to monitor kidney function, gentle hydration, and further management of possible pneumonia. I agreed to admit for further management. CT obtained prior to arriving to the floor. Per my review shows enlarged heart but no focal consolidation. She also proceeded to have a bloody bowel movement. Repeat hemoglobin showed drop. Hemoglobin stable this morning however at 8. Surgery consulted to evaluate. Continues to require inpatient management. Kidney function improving. Problems addressed as follows: Confusion, resolved Anemia, acute on chronic HAZEL, improved CKD 4 -Holding on further IV fluid resuscitation. Tolerating p.o. intake. Making adequate urine. Kidney function back to baseline with creatinine 2.6. BUN still elevated at 49. Repeat CBC, CMP, magnesium ordered for the morning. - Hemoglobin 7.21-month ago, received a transfusion since then, 9.7 yesterday on admission. 8-8.3 since bloody bowel movement. Within margin of error and stable. No further bleeding. -Surgery consulted, discussed case today, likely culprit for bright red blood include diverticular bleed or hemorrhoid. Will hold anticoagulation at this time. Patient high risk for any type of procedure and would need bowel prep prior to proceeding. Recommend serial transfusions unless patient becomes unstable. -Hemoglobin transfusion threshold of 7, typed and crossed last night. -Repeat H&H this afternoon. COPD/respiratory failure. Chronic in nature. Continue supplemental oxygen for goal sats greater than 90%. Currently on baseline 2 L. - Received Levaquin once in the ER, low concern to continue based on no consolidation on chest imaging. Hypothyroid: Continue levothyroxine 25 mcg daily Anxiety: Continue Paxil 20 mg daily Hypertension/heart failure: Continue Entresto 1 tab twice daily. Resume Bumex 1 mg daily A-fib: Continue carvedilol 12.5 mg twice daily, [id number] score of 5, 7 to 10% risk of stroke/TIA per year. Has bled score of 3 (4 if include Eliquis) giving her 5.8% risk of major bleeding (9 stent risk of major bleeding on anticoagulation). Will have further discussion with patient and daughter about risks and benefits of anticoagulation. Holding in the acute setting. Mentation improving. Kidney function back to baseline. Therapy evaluated, would benefit from skilled rehab. Awaiting placement. Full code Holding anticoagulation in setting of anemia and bloody BM Low sodium diet
--- NOTE | 2024-03-31 12:32 | EXP.SURG.CON ---
History of Present Illness *Admission Date: 03/30/24 *Reason for visit:: Anemia *History of present illness: This is an 88-year-old female seen in consultation from the primary service for evaluation regarding anemia and bright red blood per rectum. She was recently admitted after presenting to the emergency department with report of weakness, dizziness, and hypotension. She was diagnosed with acute kidney injury and respiratory failure. Her initial hemoglobin was 9.7 (8.1 this morning). Upon further questioning she reported blood per rectum. She has a known history of diverticulosis and hemorrhoids and has had intermittent bleeding (presumably from hemorrhoids and/or diverticulosis) on multiple occasions over the last few years. She has a long history of anemia dating back at least to September 2016. She has undergone multiple transfusions since 2020 and has also seen the hematology service on multiple occasions since 2018. She states that she has had colonoscopies on multiple occasions and that her most recent 2 or 3 colonoscopies were performed by Dr. Booth at this facility . She is uncertain when her last colonoscopy was but states that it was maybe close to 10 years ago . Forwarded from admission H&P: Ms. Bassett is an 88-year-old female with history of A-fib, heart failure, hypothyroid, chronic anemia who presented to the ER with reported weakness, dizziness, hypotension with her daughter. She has a history of COPD and supposed to wear 2 L nasal cannula, does not wear it consistently per her report. Per the patient's family on arrival to the ER, she has been somewhat more confused over the past few days to week. Was seen by her primary care today and due to her confusion and weakness, recommended she come to the ER for further eval and management. She received a transfusion last week and was following up for repeat labs. Denies any melena, hematochezia, bloody stools. States however she has had some upset stomach mild nausea without emesis. Minimal cough. Denies any fever, chest pain, syncope. On evaluation in the ER, she was satting 85% on room air. Sats in the 90s on 2 L nasal cannula oxygen. Received 2 g of antibiotics for concern for possible pneumonia on chest imaging. White cell count normal. Hemoglobin 9.7, up from 7.2 a few weeks ago. Also noted to have HAZEL on CKD with creatinine of 3.2 up from her baseline of 2.6. Medicine consulted for admission and further management of her HAZEL and anemia and possible pneumonia. Prior to arrival to the floor obtain a CT to evaluate for CHF versus pneumonia given the very large cardiac silhouette on chest imaging. Patient pleasant on interview. Recognizes me from prior care in the outpatient setting several years ago. No bloody bowel movements. [facility] Disclaimer: The information contained in this section may have been updated after the patient was seen, as this information can be updated by other users. Medical History Normal colonoscopy Respiratory failure with hypoxia TIA (transient ischemic attack) Rapid atrial fibrillation Diverticulitis Anemia requiring transfusions Acute hypoxemic respiratory failure Acute on chronic diastolic CHF (congestive heart failure) SIRS (systemic inflammatory response syndrome) Aortic stenosis COPD (chronic obstructive pulmonary disease) with acute bronchitis Hypotensive episode COPD (chronic obstructive pulmonary disease) Hypoxia Subungual hematoma of left ring finger Gangrene of finger of left hand Acquired hypothyroidism Atrial fibrillation CKD (chronic kidney disease) CAD (coronary artery disease) Cellulitis of left ring finger Gastroenteritis Concussion without loss of consciousness Head contusion Facial contusion Congestive heart disease Pleural effusion Chronic anemia Renal insufficiency Anticoagulated on Coumadin Junctional bradycardia Surgical History Hx of cholecystectomy S/P lumpectomy, left breast Status post total hip replacement, right Family History Other Family history of diabetes mellitus type II Family history of hypertension Social History Smoking Status: Never smoker second hand exposure: No alcohol intake: never counseling given: No substance use type: denies use current occupational status: retired Travel in the last 8 weeks: None household members: none housing: apartment caffeine: Yes Meds Home Medications and Allergies Home Medications ?Medication ?Instructions ?Recorded ?Confirmed ?Type omeprazole 20 mg capsule,delayed 20 mg PO DAILY 12/01/20 03/30/24 History release apixaban 2.5 mg tablet (Eliquis) 2.5 mg PO BID AFib 04/25/23 07/25/24 History carvedilol 12.5 mg tablet 12.5 mg PO BID 12/29/22 03/30/24 History levothyroxine 25 mcg tablet 25 mcg PO DAILY 12/29/22 03/30/24 History bumetanide 1 mg tablet 1 mg PO DAILY #90 tabs 11/18/23 03/30/24 Rx cyanocobalamin (vitamin B-12) 1,000 mcg IM WEEKLY 03/30/24 03/30/24 History 1,000 mcg/mL injection solution isosorbide mononitrate 30 mg 30 mg PO DAILY 03/30/24 03/30/24 History tablet,extended release 24 hr paroxetine HCl 20 mg tablet 20 mg PO DAILY 03/30/24 03/30/24 History sacubitril 24 mg-valsartan 26 mg 1 tab PO BID 03/30/24 03/30/24 History tablet (Entresto) New Prescriptions to Start Prescriptions: Allergies Allergy/AdvReac Type Severity Reaction Status Date / Time cefdinir Allergy Severe Hives Verified 01/01/23 22:47 iodine [IODINE] Allergy Severe S-ANAPHYLAX Verified 05/07/22 09:35 IS Sulfa (Sulfonamide Allergy Severe I-HIVES Verified 05/07/22 09:35 Antibiotics) [SULFA (SULFONAMIDE ANTIBIOTICS)] Penicillins [PENICILLINS] Allergy Intermediate I-RASH Verified 05/07/22 09:35 codeine [CODEINE] Allergy Unknown NA-HALLUCIN Verified 05/07/22 09:35 ATIONS hydrogen peroxide Allergy Unknown Verified 05/07/22 09:35 Exam (Inpt) Vital signs and Labs for Last 24 Hours: Temp Pulse Resp BP Pulse Ox O2 Del Method O2 Flow Rate 98.1 F 105 H 18 130/80 97 Nasal Cannula 2 03/31/24 07:37 03/31/24 07:37 03/31/24 07:37 03/31/24 07:37 03/31/24 07:37 03/31/24 11:46 03/31/24 11:46 Laboratory Results - last 24 hr 03/30/24 11:37: NT-Pro-B Natriuret Pep 8650 H 03/30/24 13:15: Urine Color Yellow, Urine Appearance Clear, Urine pH 6.0, Ur Specific [place] 1.020, Urine Protein Negative, Urine Glucose (UA) Negative, Urine Ketones Negative, Urine Blood Negative, Urine Nitrate Negative, Urine Bilirubin Negative, Urine Urobilinogen 0.2, Ur Leukocyte Esterase Negative, Urine RBC None, Urine WBC Occasional, Ur Squamous Epith Cells 5-10, Urine Bacteria Trace 03/30/24 21:08: Hgb 8.3 L D, Hct 27.4 L 03/30/24 23:45: Blood Type O Positive, Antibody Screen Negative 03/31/24 06:14: WBC 3.8 L D, RBC 3.06 L, Hgb 8.0 L, Hct 26.5 L, MCV 86.6, MCH 26.0 L, MCHC 30.1 L, RDW 18.4 H, Plt Count 226, MPV 8.3, Neut % (Auto) 68.0, Lymph % (Auto) 16.8, [place] % (Auto) 11.4 H, Eos % (Auto) 3.2, Baso % (Auto) 0.7, Neut # (Auto) 2.6, Lymph # (Auto) 0.6 L, [place] # (Auto) 0.4, Eos # (Auto) 0.1, Baso # (Auto) 0.0, Sodium 136, Potassium 4.6, Chloride 110 H, Carbon Dioxide 22, Anion Gap 8.6, BUN 49 H, Creatinine 2.60 H, Estimated Creat Clear 20, Estimated GFR 17 L*, Est GFR ( Amer) 21 L D, Glucose 93, Calcium 9.1, Magnesium 1.7, Total Bilirubin 0.5, AST 19, ALT 11 L, Alkaline Phosphatase 169 H, Total Protein 5.0 L, Albumin 2.8 L D, Globulin 2.2, Albumin/Globulin Ratio 1.3 03/31/24 08:48: Hgb 8.1 L, Hct 26.3 L I & O for Labs for Last 24 Hours: Intake & Output 03/29/24 03/30/24 03/31/24 04/01/24 11:59 11:59 11:59 11:59 Intake Total 840 / 840 Output Total 900 / 900 Balance -60 / -60 Weight 189 lb 190 lb 12.8 oz Constitutional: no acute distress Respiratory: Absent respiratory distress Comment:: NC O2 in place Cardiac: Present Tachycardia Results Labs 03/31/24 08:48 03/31/24 06:14 Labs: Laboratory Results - last 24 hr 03/30/24 11:37: NT-Pro-B Natriuret Pep 8650 H 03/30/24 13:15: Urine Color Yellow, Urine Appearance Clear, Urine pH 6.0, Ur Specific [place] 1.020, Urine Protein Negative, Urine Glucose (UA) Negative, Urine Ketones Negative, Urine Blood Negative, Urine Nitrate Negative, Urine Bilirubin Negative, Urine Urobilinogen 0.2, Ur Leukocyte Esterase Negative, Urine RBC None, Urine WBC Occasional, Ur Squamous Epith Cells 5-10, Urine Bacteria Trace 03/30/24 21:08: Hgb 8.3 L D, Hct 27.4 L 03/30/24 23:45: Blood Type O Positive, Antibody Screen Negative 03/31/24 06:14: WBC 3.8 L D, RBC 3.06 L, Hgb 8.0 L, Hct 26.5 L, MCV 86.6, MCH 26.0 L, MCHC 30.1 L, RDW 18.4 H, Plt Count 226, MPV 8.3, Neut % (Auto) 68.0, Lymph % (Auto) 16.8, [place] % (Auto) 11.4 H, Eos % (Auto) 3.2, Baso % (Auto) 0.7, Neut # (Auto) 2.6, Lymph # (Auto) 0.6 L, [place] # (Auto) 0.4, Eos # (Auto) 0.1, Baso # (Auto) 0.0, Sodium 136, Potassium 4.6, Chloride 110 H, Carbon Dioxide 22, Anion Gap 8.6, BUN 49 H, Creatinine 2.60 H, Estimated Creat Clear 20, Estimated GFR 17 L*, Est GFR ( Amer) 21 L D, Glucose 93, Calcium 9.1, Magnesium 1.7, Total Bilirubin 0.5, AST 19, ALT 11 L, Alkaline Phosphatase 169 H, Total Protein 5.0 L, Albumin 2.8 L D, Globulin 2.2, Albumin/Globulin Ratio 1.3 03/31/24 08:48: Hgb 8.1 L, Hct 26.3 L Assessment and Plan *Assessment and plan (1) Acute on chronic anemia: Status: Acute Category: Medical Code(s): D64.9 - Anemia, unspecified (2) Respiratory failure with hypoxia: Status: Acute Qualifiers: Chronicity: acute on chronic Qualified Code(s): J96.21 - Acute and chronic respiratory failure with hypoxia Category: Medical Code(s): J96.91 - Respiratory failure, unspecified with hypoxia (3) Atrial fibrillation: Status: Chronic Qualifiers: Atrial fibrillation type: longstanding persistent Qualified Code(s): I48.11 - Longstanding persistent atrial fibrillation Category: Medical Code(s): I48.91 - Unspecified atrial fibrillation (4) CAD (coronary artery disease): Status: Chronic Qualifiers: Coronary Disease-Associated Artery/Lesion type: [place] artery [place] vs. transplanted heart: [place] heart Associated angina: without angina Qualified Code(s): I25.10 - Atherosclerotic heart disease of [place] coronary artery without angina pectoris Category: Medical Code(s): I25.10 - Atherosclerotic heart disease of [place] coronary artery without angina pectoris (5) Congestive heart disease: Status: Chronic Qualifiers: Heart failure chronicity: acute on chronic Heart failure type: unspecified Qualified Code(s): I50.9 - Heart failure, unspecified Category: Medical Code(s): I50.9 - Heart failure, unspecified (6) Acute on chronic kidney failure: Status: Resolved Category: Medical Code(s): N17.9 - Acute kidney failure, unspecified; N18.9 - Chronic kidney disease, unspecified Plan I have had a long discussion with the patient concerning the risks and benefits of colonoscopy. Given her age and comorbid medical conditions...I believe the procedural risks, risks of bowel preparation (note acute on chronic kidney injury), and risks of sedation likely outweigh the benefits of endoscopic evaluation. She states that she most likely would not want a colonoscopy anyway . She does reiterate that she has undergone colonoscopy on multiple occasions by Dr. Booth and prefers to make her final decision with him in the near future. Transfuse as needed Follow-up in near future with Dr. Booth Continue serial hemoglobin/hematocrit
[2024-03-31 13:04] VITALS: BMI 31.8
[2024-03-31 15:12] VITALS: BP 95/57; PULSE 107; RESP 18; TEMP 36.8; O2SAT 95
[2024-03-31 15:18] LABS: Occult Blood,Stool Positive (Negative)
--- NOTE | 2024-03-31 15:24 | PC.NURSE ---
Pt is alert and oriented. Ambulates to the restroom with one assist. pt. had one bm and sample sent for ocult blood test. Spoke with daughter on the phone about patients plan for short term rehab.
[2024-03-31 20:00] VITALS: BP 110/49; PULSE 113; RESP 18; TEMP 36.3; O2SAT 99
[2024-03-31] MEDS: PANTOPRAZOLE 40MG TABLET 40 MG PO (20:00)
[2024-03-31 21:15] LABS: Hematocrit 21.3 % (37.0-47.0); Hemoglobin 7.9 g/dL (12.2-16.2)
[2024-04-01] VITALS (15 sets, daily range): BP systolic 96–138; BP diastolic 53–82; PULSE 68–115; RESP 16–18; TEMP 36.4–36.9; O2SAT 95–98; BMI 31.4
--- NOTE | 2024-04-01 04:27 | PC.NURSE ---
Pt is alert and oriented x4, pt was slow to answer but did answer orientation questions correctly. Pt is tolerating 2L well and sating at 95-100%. Pt denies pain and has had to complaints this shift, no acute changes to note at this time.
[2024-04-01] MEDS: LEVOTHYROXINE 25MCG (0.025MG) TAB 25 MCG PO (06:43)
[2024-04-01 07:32] LABS: Basophils % 0.5 % (0.1-2.0); Eosinophils # 0.2 K/mm3 (0.0-0.4); Eosinophils % 4.2 % (0.1-12.0); Hematocrit 24.6 % (37.0-47.0); Hemoglobin 7.6 g/dL (12.2-16.2); Lymphocytes # 0.7 K/mm3 (0.7-4.5); Lymphocytes % 19.4 % (10-50); Mean Corpuscular HGB Conc 30.9 g/dL (31.8-35.4); Mean Corpuscular Hemoglobin 26.9 pg (27.0-31.2); Mean Corpuscular Volume 87.1 fl (81-99); Mean Platelet Volume 8.2 fl (7.4-10.4); Monocytes # 0.3 K/mm3 (0.1-1.0); Monocytes % 8.5 % (1.7-9.3); Neutrophils # 2.5 K/mm3 (1.8-7.8); Neutrophils % 67.4 % (37.0-80.0); Platelet Count 210 K/mm3 (142-424); Red Blood Count 2.83 M/mm3 (4.20-5.40); Red Cell Distribution Width 18.6 % (11.5-17.5); White Blood Count 3.8 K/mm3 (4.8-10.8)
[2024-04-01 07:36] LABS: Chloride 110 mmol/L (98-107); Sodium 139 mmol/L (136-145)
[2024-04-01 07:38] LABS: Blood Urea Nitrogen 55 mg/dl (7-17); Creatinine Clearance Estimated 17 mL/min (50-200); Estimated Glomerular Filt Rate 14 ml/min (>60); GFR (African American) 17 ML/MIN (>60)
[2024-04-01 07:39] LABS: Alanine Aminotransferase 7 U/L (12-78); Albumin/Globulin Ratio 1.5 (1.1-1.8); Alkaline Phosphatase 170 U/L (38-126); Aspartate Amino Transferase 15 U/L (14-36); Bilirubin,Total 0.3 mg/dl (0.2-1.3); Calcium 8.7 mg/dl (8.4-10.2); Carbon Dioxide 24 mmol/L (22.0-30.0); Glucose 98 mg/dl (74-100); Magnesium 1.8 mg/dl (1.6-2.3)
[2024-04-01] MEDS: BUMETANIDE 1 MG TABLET PO (08:13)
[2024-04-01] MEDS: CARVEDILOL 12.5MG TABLET 12.5 MG PO ×2 (08:13→20:01)
[2024-04-01] MEDS: PARoxetine 20MG TABLET 20 MG PO (08:13)
[2024-04-01] MEDS: ISOSORBIDE MONO 30MG TAB.ER.24H 30 MG PO (08:13)
[2024-04-01 08:46] LABS: NT Pro Brain Natriuretic Pep. 5860 pg/mL (0-450)
--- NOTE | 2024-04-01 08:52 | EXP.SURG.PN ---
Subjective Narrative: Patient currently resting Exam Data for Last 24 hours Vital signs and Labs for Last 24 Hours: Temp Pulse Resp BP Pulse Ox O2 Del Method O2 Flow Rate 97.6 F 109 H 16 121/81 97 Nasal Cannula 2 04/01/24 08:00 04/01/24 08:00 04/01/24 08:00 04/01/24 08:00 04/01/24 08:00 04/01/24 08:00 04/01/24 08:00 Laboratory Results - last 24 hr 03/31/24 08:48: Hgb 8.1 L, Hct 26.3 L 03/31/24 11:50: Stool Occult Blood Positive A 03/31/24 21:00: Hgb 7.9 L, Hct 21.3 L 04/01/24 06:22: WBC 3.8 L, RBC 2.83 L, Hgb 7.6 L, Hct 24.6 L, MCV 87.1, MCH 26.9 L, MCHC 30.9 L, RDW 18.6 H, Plt Count 210, MPV 8.2, Neut % (Auto) 67.4, Lymph % (Auto) 19.4, [place] % (Auto) 8.5, Eos % (Auto) 4.2, Baso % (Auto) 0.5, Neut # (Auto) 2.5, Lymph # (Auto) 0.7, [place] # (Auto) 0.3, Eos # (Auto) 0.2, Baso # (Auto) 0.0, Sodium 139, Potassium 5.0, Chloride 110 H, Carbon Dioxide 24, Anion Gap 10.0, BUN 55 H, Creatinine 3.10 H, Estimated Creat Clear 17, Estimated GFR 14 L*, Est GFR ( Amer) 17 L*, Glucose 98, Calcium 8.7, Magnesium 1.8, Total Bilirubin 0.3, AST 15, ALT 7 L D, Alkaline Phosphatase 170 H, Total Protein 5.0 L, Albumin 3.0 L, Globulin 2.0, Albumin/Globulin Ratio 1.5 04/01/24 06:30: NT-Pro-B Natriuret Pep 5860 H I & O for Last 24 hours: Intake & Output 03/29/24 03/30/24 03/31/24 04/01/24 11:59 11:59 11:59 11:59 Intake Total 840 / 840 900 / 900 Output Total 900 / 900 0 / 0 Balance -60 / -60 900 / 900 Weight 189 lb 190 lb 12.8 oz 189 lb Microbiology Reports for the Last 24 Hours: Microbiology 03/30/24 13:09 Blood Blood Culture - Preliminary NO GROWTH AFTER 24 HOURS 03/30/24 13:01 Blood Blood Culture - Preliminary NO GROWTH AFTER 24 HOURS Constitutional Comments: Exam deferred (patient currently asleep) Progress Note: A&P Assessment and plan (1) Acute on chronic anemia: Status: Acute Assessment and plan: Continue to transfuse if/when needed Continue with plans for follow-up with Dr. Booth in the near future for further discussion Continue serial hemoglobin/hematocrit
--- NOTE | 2024-04-01 09:53 | EXP.ACUTE.PN ---
Subjective *Date: 04/01/24 *Time: 10:16 Interval history: Says she is feeling a little weak this morning. Stable overnight on 2 L. Tolerated breakfast. No fever or shortness of breath beyond her baseline. Kidney function a little bit worse this morning. Hemoglobin trickling down, 7.6 today. Has been accepted by [facility] when medically stable to discharge. Medical Exam Vital signs and Labs for Last 24 Hours: Vital Signs Temp Pulse Resp BP Pulse Ox O2 Del Method O2 Flow Rate 04/01/24 08:53 Nasal Cannula 2 04/01/24 08:00 Nasal Cannula 2 04/01/24 08:00 97.6 F 109 H 16 121/81 97 Nasal Cannula 04/01/24 06:48 Nasal Cannula 2 04/01/24 04:38 Nasal Cannula 2 04/01/24 04:00 98.2 F 68 16 129/63 97 Nasal Cannula 2 04/01/24 03:00 Nasal Cannula 2 04/01/24 00:49 Nasal Cannula 2 03/31/24 22:49 Nasal Cannula 2 03/31/24 21:00 Nasal Cannula 2 03/31/24 20:00 99 Nasal Cannula 2 03/31/24 20:00 97.4 F L 113 H 18 110/49 L 99 Nasal Cannula 2 03/31/24 17:19 Nasal Cannula 2 03/31/24 15:54 Room Air 03/31/24 15:12 98.2 F 107 H 18 95/57 L 95 Nasal Cannula 2 03/31/24 15:00 Nasal Cannula 2 03/31/24 11:46 Nasal Cannula 2 03/31/24 10:02 Nasal Cannula 2 Intake and Output 03/31/24 04/01/24 04/01/24 23:59 07:59 15:59 Intake Total 270 / 1350 240 / 360 120 / 360 Output Total 0 / 500 0 / 0 Balance 270 / 850 240 / 360 120 / 360 Intake: Intake, Oral Amount 270 / 1350 240 / 360 120 / 360 Output: Output, Urine Amount 0 / 500 0 / 0 Other: Number of Unmeasured Voids 1 1 Weight 85.729 kg Patient Weight 04/01/24 23:59 Weight 85.729 kg Laboratory Results - last 24 hr 03/31/24 11:50: Stool Occult Blood Positive A 03/31/24 21:00: Hgb 7.9 L, Hct 21.3 L 04/01/24 06:22: WBC 3.8 L, RBC 2.83 L, Hgb 7.6 L, Hct 24.6 L, MCV 87.1, MCH 26.9 L, MCHC 30.9 L, RDW 18.6 H, Plt Count 210, MPV 8.2, Neut % (Auto) 67.4, Lymph % (Auto) 19.4, [place] % (Auto) 8.5, Eos % (Auto) 4.2, Baso % (Auto) 0.5, Neut # (Auto) 2.5, Lymph # (Auto) 0.7, [place] # (Auto) 0.3, Eos # (Auto) 0.2, Baso # (Auto) 0.0, Sodium 139, Potassium 5.0, Chloride 110 H, Carbon Dioxide 24, Anion Gap 10.0, BUN 55 H, Creatinine 3.10 H, Estimated Creat Clear 17, Estimated GFR 14 L*, Est GFR ( Amer) 17 L*, Glucose 98, Calcium 8.7, Magnesium 1.8, Total Bilirubin 0.3, AST 15, ALT 7 L D, Alkaline Phosphatase 170 H, Total Protein 5.0 L, Albumin 3.0 L, Globulin 2.0, Albumin/Globulin Ratio 1.5 04/01/24 06:30: NT-Pro-B Natriuret Pep 5860 H I & O for Labs for Last 24 Hours: Intake & Output 03/29/24 03/30/24 03/31/24 04/01/24 23:59 23:59 23:59 23:59 Intake Total 270 / 570 1110 / 1350 360 / 360 Output Total 400 / 400 500 / 500 0 / 0 Balance -130 / 170 610 / 850 360 / 360 Weight 85.531 kg 86.54 kg 85.729 kg Microbiology Reports for the Last 24 Hours: Microbiology 03/30/24 13:09 Blood Blood Culture - Preliminary NO GROWTH AFTER 24 HOURS 03/30/24 13:01 Blood Blood Culture - Preliminary NO GROWTH AFTER 24 HOURS Constitutional: Present no acute distress, obese, chronically ill appearing and cooperative Head: Present atraumatic and normocephalic ENT: Present normal exam Respiratory: Present normal respiratory effort; Absent rhonchi, wheezes or crackles Cardiac: Present Regular Rate Comment:: Irregularly irregular GI: Present soft and normal bowel sounds; Absent distention or tenderness Extremities: Present normal inspection, full ROM and edema (1-2+ to knees and bilateral lower extremities) Skin: Present intact and pallor; Absent erythema Neuro: Present Grossly Intact, alert, awake, oriented x 3 and moves all extremities Assessment and Plan *Assessment and plan (1) Acute on chronic anemia: Status: Acute Category: Medical Code(s): D64.9 - Anemia, unspecified (2) HAZEL (acute kidney injury): Status: Acute Category: Medical Code(s): N17.9 - Acute kidney failure, unspecified (3) Respiratory failure with hypoxia: Status: Acute Qualifiers: Chronicity: acute on chronic Qualified Code(s): J96.21 - Acute and chronic respiratory failure with hypoxia Category: Medical Code(s): J96.91 - Respiratory failure, unspecified with hypoxia (4) Atrial fibrillation: Status: Chronic Qualifiers: Atrial fibrillation type: longstanding persistent Qualified Code(s): I48.11 - Longstanding persistent atrial fibrillation Category: Medical Code(s): I48.91 - Unspecified atrial fibrillation (5) CAD (coronary artery disease): Status: Chronic Qualifiers: Coronary Disease-Associated Artery/Lesion type: [place] artery [place] vs. transplanted heart: [place] heart Associated angina: without angina Qualified Code(s): I25.10 - Atherosclerotic heart disease of [place] coronary artery without angina pectoris Category: Medical Code(s): I25.10 - Atherosclerotic heart disease of [place] coronary artery without angina pectoris (6) Congestive heart disease: Status: Chronic Qualifiers: Heart failure chronicity: acute on chronic Heart failure type: unspecified Qualified Code(s): I50.9 - Heart failure, unspecified Category: Medical Code(s): I50.9 - Heart failure, unspecified (7) CKD (chronic kidney disease): Status: Chronic Qualifiers: Chronic kidney disease stage: stage 4 (severe) Qualified Code(s): N18.4 - Chronic kidney disease, stage 4 (severe) Category: Medical Code(s): N18.9 - Chronic kidney disease, unspecified (8) Generalized weakness: Status: Acute Category: Medical Code(s): R53.1 - Weakness (9) Acquired hypothyroidism: Status: Chronic Category: Medical Code(s): E03.9 - Hypothyroidism, unspecified Plan 88-year-old female with multiple complex medical conditions including A-fib, chronic hypoxemic respiratory failure, hypothyroid, COPD, CKD 4. Presented to the ER with anemia, confusion, HAZEL on CKD. Discussed case with ER, request admission for serial labs to monitor kidney function, gentle hydration, and further management of possible pneumonia. I agreed to admit for further management. CT obtained prior to arriving to the floor. Per my review shows enlarged heart but no focal consolidation. She also proceeded to have a bloody bowel movements. Repeat hemoglobin dropped again this morning. Will transfuse today. Has been accepted by [facility] when medically stable. Continues to require inpatient management. Problems addressed as follows: Confusion, resolved Anemia, acute on chronic HAZEL CKD 4 -Holding on further IV fluid resuscitation. Tolerating p.o. intake. Making adequate urine. Kidney function slightly worse today, creatinine back up to 3.1, BUN 55. Will change course and administer diuretic along with transfusion. BNP has doubled since admission, greater than 5000 today. Concerned that her kidney function is worsening due to volume overload. Patient tenuous to volume. Per my review of CT of abdomen, has thinning of renal cortices. Worsening edema on exam today. - Hemoglobin 7.2 a month ago, received a transfusion since then, 9.7 admission. Has continued to drop, 7.6 this morning. Will transfuse 1 unit packed red blood cells today. Will administer an additional dose of 1 mg IV Bumex prior to transfusion to help maintain appropriate volume status. -Surgery consulted, recommend transfusing as needed. Recommend against aggressive workup with colonoscopies. Also recommended holding blood thinners. -Hemoglobin transfusion threshold of 7 or with continued blood loss, typed and crossed -Repeat H&H and BMP ordered for this afternoon, repeat CBC, CMP, magnesium ordered for the morning. COPD/respiratory failure. Chronic in nature. Continue supplemental oxygen for goal sats greater than 90%. Currently on baseline 2 L. - Received Levaquin once in the ER, low concern to continue based on no consolidation on chest imaging. Hypothyroid: Continue levothyroxine 25 mcg daily, TS H ordered and pending Anxiety: Continue Paxil 20 mg daily Hypertension/heart failure: Continue isosorbide 30 mg daily, carvedilol 12.5 mg twice daily, resumed Bumex 1 mg daily. Holding Entresto in the setting of her HAZEL on CKD 4 A-fib: Continue carvedilol 12.5 mg twice daily, [id number] score of 5, 7 to 10% risk of stroke/TIA per year. Has bled score of 3 (4 if include Eliquis) giving her 5.8% risk of major bleeding (9 stent risk of major bleeding on anticoagulation). Will have further discussion with patient and daughter about risks and benefits of anticoagulation. Holding in the acute setting. Altered mental status: Mentation At baseline, fatigued but alert and oriented on exam. Debility: Evaluated by therapy, has been referred [facility] for SNF, excepted when medically stable. Full code Holding anticoagulation in setting of anemia and bloody BM Low sodium diet
[2024-04-01] MEDS: BUMETANIDE 1MG/4ML VIAL 1 MG IV (11:59)
[2024-04-01] MEDS: 0.9 % SODIUM CHLORIDE 250 ML 25 ML IV (12:20)
[2024-04-01 12:45] LABS: Thyroid Stimulating Hormone 3.06 uIU/mL (0.465-4.68)
--- NOTE | 2024-04-01 15:08 | PC.NURSE ---
pt has remained on 2L nc shift. pt has had no complaints throughout today. hospitalist ordered 1 unit of blood d/t low h&h. blood has now been transfused and awaiting 1hr post h&h. bumex 1mg IV was given prior to blood being given per hospitalist order. pt has had 2+ pitting edema in bilateral lower extremities. pt has been ambulating to bathroom x1 assist. pt is resting in bed with eyes closed. call light within reach and no new orders at this time.
[2024-04-01 16:13] LABS: Hematocrit 28.6 % (37.0-47.0)
[2024-04-01 16:25] LABS: Hemoglobin 8.9 g/dL (12.2-16.2)
[2024-04-01 19:09] LABS: Chloride 111 mmol/L (98-107); Sodium 139 mmol/L (136-145)
[2024-04-01 19:10] LABS: Potassium 5.1 mmoL/L (3.5-5.1)
[2024-04-01 19:12] LABS: Blood Urea Nitrogen 56 mg/dl (7-17); Creatinine Clearance Estimated 16 mL/min (50-200); Estimated Glomerular Filt Rate 14 ml/min (>60); GFR (African American) 17 ML/MIN (>60)
[2024-04-01 19:13] LABS: Anion Gap 8.1 mEq/L (5-15); Calcium 8.8 mg/dl (8.4-10.2); Carbon Dioxide 25 mmol/L (22.0-30.0); Glucose 149 mg/dl (74-100)
[2024-04-01] MEDS: PANTOPRAZOLE 40MG TABLET 40 MG PO (20:01)
[2024-04-02 04:00] VITALS: BP 127/80; PULSE 116; RESP 20; TEMP 36.7; O2SAT 95; BMI 31.7
--- NOTE | 2024-04-02 04:53 | PC.NURSE ---
Alert and oriented, slightly confused at times, easily reorientated. Pt has had no complaints throughout the shift. Ambulates to the restroom with one assist and walker. No bleeding noted rectally this shift. Lung sounds clear. Abdomen soft and nontender. 1+ non pitting edema noted to BLE. 2L NC, O2 sat >90%. Bed alarm on. Call light in reach.
[2024-04-02] MEDS: LEVOTHYROXINE 25MCG (0.025MG) TAB 25 MCG PO (06:06)
[2024-04-02 06:54] LABS: Basophils % 0.7 % (0.1-2.0); Eosinophils # 0.2 K/mm3 (0.0-0.4); Eosinophils % 4.1 % (0.1-12.0); Hematocrit 30.8 % (37.0-47.0); Hemoglobin 9.5 g/dL (12.2-16.2); Lymphocytes # 0.7 K/mm3 (0.7-4.5); Lymphocytes % 17.1 % (10-50); Mean Corpuscular HGB Conc 30.7 g/dL (31.8-35.4); Mean Corpuscular Hemoglobin 27.3 pg (27.0-31.2); Mean Platelet Volume 8.1 fl (7.4-10.4); Monocytes # 0.4 K/mm3 (0.1-1.0); Monocytes % 8.9 % (1.7-9.3); Neutrophils # 2.9 K/mm3 (1.8-7.8); Neutrophils % 69.2 % (37.0-80.0); Platelet Count 219 K/mm3 (142-424); Red Blood Count 3.46 M/mm3 (4.20-5.40); Red Cell Distribution Width 18.6 % (11.5-17.5); White Blood Count 4.2 K/mm3 (4.8-10.8)
[2024-04-02 07:13] LABS: Alanine Aminotransferase 9 U/L (12-78); Albumin Level 3.1 g/dl (3.5-5.0); Albumin/Globulin Ratio 1.3 (1.1-1.8); Alkaline Phosphatase 161 U/L (38-126); Anion Gap 8.7 mEq/L (5-15); Aspartate Amino Transferase 16 U/L (14-36); Bilirubin,Total 0.7 mg/dl (0.2-1.3); Blood Urea Nitrogen 61 mg/dl (7-17); Calcium 9.1 mg/dl (8.4-10.2); Carbon Dioxide 24 mmol/L (22.0-30.0); Chloride 110 mmol/L (98-107); Creatinine Clearance Estimated 17 mL/min (50-200); Estimated Glomerular Filt Rate 14 ml/min (>60); GFR (African American) 17 ML/MIN (>60); Globulin 2.4 g/dL (1.3-3.2); Glucose 95 mg/dl (74-100); Potassium 4.7 mmoL/L (3.5-5.1); Sodium 138 mmol/L (136-145); Total Protein,Serum 5.5 g/dl (6.3-8.2)
[2024-04-02 07:39] VITALS: BP 140/73; PULSE 105; RESP 17; TEMP 36.7; O2SAT 96
[2024-04-02 08:00] LABS: Magnesium 1.9 mg/dl (1.6-2.3)
[2024-04-02] MEDS: ISOSORBIDE MONO 30MG TAB.ER.24H 30 MG PO (09:23)
[2024-04-02] MEDS: METOPROLOL TARTRATE 25MG TABLET 25 MG PO (09:23)
[2024-04-02] MEDS: PARoxetine 20MG TABLET 20 MG PO (09:23)
--- NOTE | 2024-04-02 10:08 | EXP.SURG.PN ---
Subjective Narrative: Currently resting Exam Data for Last 24 hours Vital signs and Labs for Last 24 Hours: Temp Pulse Resp BP Pulse Ox O2 Del Method O2 Flow Rate 98.0 F 105 H 17 140/73 96 Nasal Cannula 2 04/02/24 07:39 04/02/24 07:39 04/02/24 07:39 04/02/24 07:39 04/02/24 07:39 04/02/24 08:29 04/02/24 08:29 Laboratory Results - last 24 hr 03/30/24 23:45: Blood Type O Positive, Antibody Screen Negative, Crossmatch (AHG) See Detail 04/01/24 06:30: TSH 3.06 04/01/24 15:45: Hgb 8.9 L D, Hct 28.6 L 04/01/24 18:50: Sodium 139, Potassium 5.1, Chloride 111 H, Carbon Dioxide 25, Anion Gap 8.1, BUN 56 H, Creatinine 3.20 H, Estimated Creat Clear 16, Estimated GFR 14 L*, Est GFR ( Amer) 17 L*, Glucose 149 H D, Calcium 8.8 04/02/24 06:17: WBC 4.2 L, RBC 3.46 L, Hgb 9.5 L, Hct 30.8 L, MCV 89.0, MCH 27.3, MCHC 30.7 L, RDW 18.6 H, Plt Count 219, MPV 8.1, Neut % (Auto) 69.2, Lymph % (Auto) 17.1, [place] % (Auto) 8.9, Eos % (Auto) 4.1, Baso % (Auto) 0.7, Neut # (Auto) 2.9, Lymph # (Auto) 0.7, [place] # (Auto) 0.4, Eos # (Auto) 0.2, Baso # (Auto) 0.0, Sodium 138, Potassium 4.7, Chloride 110 H, Carbon Dioxide 24, Anion Gap 8.7, BUN 61 H, Creatinine 3.10 H, Estimated Creat Clear 17, Estimated GFR 14 L*, Est GFR ( Amer) 17 L*, Glucose 95 D, Calcium 9.1, Magnesium 1.9, Total Bilirubin 0.7, AST 16, ALT 9 L D, Alkaline Phosphatase 161 H, Total Protein 5.5 L, Albumin 3.1 L, Globulin 2.4, Albumin/Globulin Ratio 1.3 I & O for Last 24 hours: Intake & Output 03/30/24 03/31/24 04/01/24 04/02/24 11:59 11:59 11:59 11:59 Intake Total 840 / 840 1020 / 1020 1420 / 1420 Output Total 900 / 900 0 / 0 150 / 150 Balance -60 / -60 1020 / 1020 1270 / 1270 Weight 189 lb 190 lb 12.8 oz 189 lb 190 lb 9 oz Microbiology Reports for the Last 24 Hours: Microbiology 03/30/24 13:09 Blood Blood Culture - Preliminary NO GROWTH AFTER 48 HOURS 03/30/24 13:01 Blood Blood Culture - Preliminary NO GROWTH AFTER 48 HOURS Constitutional Comments: Exam deferred (patient currently asleep) Progress Note: A&P Assessment and plan (1) Acute on chronic anemia: Status: Acute Assessment and plan: Excellent response to 1 unit packed red blood cells yesterday Continue to transfuse if/when needed Continue with plans for follow-up with Dr. Booth in the near future for further discussion Continue serial hemoglobin/hematocrit
--- NOTE | 2024-04-02 10:39 | P.DS_ITS ---
General Admission date:: 03/30/24 Discharge date: 04/02/24 HPI HPI HPI: This is an 88-year-old female seen in consultation from the primary service for evaluation regarding anemia and bright red blood per rectum. She was recently admitted after presenting to the emergency department with report of weakness, dizziness, and hypotension. She was diagnosed with acute kidney injury and respiratory failure. Her initial hemoglobin was 9.7 (8.1 this morning). Upon further questioning she reported blood per rectum. She has a known history of diverticulosis and hemorrhoids and has had intermittent bleeding (presumably from hemorrhoids and/or diverticulosis) on multiple occasions over the last few years. She has a long history of anemia dating back at least to September 2016. She has undergone multiple transfusions since 2020 and has also seen the hematology service on multiple occasions since 2018. She states that she has had colonoscopies on multiple occasions and that her most recent 2 or 3 colonoscopies were performed by Dr. Booth at this facility . She is uncertain when her last colonoscopy was but states that it was maybe close to 10 years ago . Forwarded from admission H&P: Ms. Bassett is an 88-year-old female with history of A-fib, heart failure, hypothyroid, chronic anemia who presented to the ER with reported weakness, dizziness, hypotension with her daughter. She has a history of COPD and supposed to wear 2 L nasal cannula, does not wear it consistently per her report. Per the patient's family on arrival to the ER, she has been somewhat more confused over the past few days to week. Was seen by her primary care today and due to her confusion and weakness, recommended she come to the ER for further eval and management. She received a transfusion last week and was following up for repeat labs. Denies any melena, hematochezia, bloody stools. States however she has had some upset stomach mild nausea without emesis. Minimal cough. Denies any fever, chest pain, syncope. On evaluation in the ER, she was satting 85% on room air. Sats in the 90s on 2 L nasal cannula oxygen. Received 2 g of antibiotics for concern for possible pneumonia on chest imaging. White cell count normal. Hemoglobin 9.7, up from 7.2 a few weeks ago. Also noted to have HAZEL on CKD with creatinine of 3.2 up from her baseline of 2.6. Medicine consulted for admission and further management of her HAZEL and anemia and possible pneumonia. Prior to arrival to the floor obtain a CT to evaluate for CHF versus pneumonia given the very large cardiac silhouette on chest imaging. Patient pleasant on interview. Recognizes me from prior care in the outpatient setting several years ago. No bloody bowel movements. Hospital Course Hospital Course Hospital Course: 88-year-old female with multiple complex medical conditions including A-fib, c hronic hypoxemic respiratory failure, hypothyroid, COPD, CKD 4. Presented to the ER with anemia, confusion, HAZEL on CKD. Discussed case with ER, request admission for serial labs to monitor kidney function, gentle hydration, and further management of possible pneumonia. I agreed to admit for further management. CT obtained prior to arriving to the floor. Per my review shows enlarged heart but no focal consolidation. She also proceeded to have a bloody bowel movement. Hemoglobin dropped. Was transfused. Hemoglobin has done better. No further bloody bowel movements. Referred to [facility] for rehab. Has been accepted. Stable to discharge today for further management. Problems addressed as follows: Confusion, resolved Anemia, acute on chronic HAZEL CKD 4 -Due to her confusion and HAZEL along with concern for pneumonia by the ER on admission, was given IV fluids on admission. BNP 2500 on admission. Has been making good urine. Creatinine 3.2 on day of admission. Improved to 2.6 by the following morning and then bump back up to 3.1 by that evening. BNP worsened during admission to 5000. Concern patient actually has some volume overload. Held on further IV fluids. Did receive transfusion for her anemia with 1 unit. Diuresed with Bumex IV once prior to that unit. Creatinine remained stable at 3.1 during admission. Oxygen requirement remained stable. Concerned that she has had knee dysfunction in the setting of her A-fib and heart failure. Would recommend continuing diuretics daily with 1 mg Bumex. Will continue to hold her Entresto due to his risk for worsening kidney injury. Making urine during admission. Per my review of CT of abdomen, has thinning of renal cortices. Noted to have worsening edema, so diuretics were continued and not held any further. - Hemoglobin 7.2 a month ago, received a transfusion since then, 9.7 on admission, dropped after receiving fluids and having bloody bowel movement. Hemoglobin 7.6 on the morning of 04/01. Received 1 unit packed red blood cells. Responded well with increased to 9.5. Platelets 219. No further transfusions at this time. Surgery was consulted for her bloody bowel movement, recommended transfusing as needed and recommended against aggressive workup with colonoscopies. Will hold blood thinners at this time. Follow-up with Dr. Booth in the outpatient setting for further discussion and consideration for workup versus conservative management with transfusions as needed. -Patient needs CBC, CMP, magnesium within the next 24 hours and again in 1 week. COPD/respiratory failure. Chronic in nature. Continue supplemental oxygen for goal sats greater than 90%. Currently on baseline 2 L.. Received Levaquin once in the ER, did not continue due to no consolidation on chest imaging, normal white count, no productive cough or cough at all, and no fever. Hypothyroid: Continue levothyroxine 25 mcg daily, TSH 3 Anxiety: Continue Paxil 20 mg daily Hypertension/heart failure: Continue isosorbide 30 mg daily, carvedilol 12.5 mg twice daily, resumed Bumex 1 mg daily. Holding Entresto in the setting of her HAZEL on CKD 4 A-fib: Admitted on carvedilol. Blood pressure soft overnight on carvedilol. Will transition to metoprolol for better heart rate control and less impact on blood pressure. Continue metoprolol tartrate 50 mg twice daily. Goal rate less than 90. Due to her anemia and bleeding, had discussion about anticoagulation. Previously on Eliquis 2.5 mg twice daily. [id number]-[id number] score of 5, 7-10% risk of stroke/TIA per year. Has-bled score of 3 (4 if include Eliquis) giving her 5.8% risk of major bleeding (9% risk of major bleeding on anticoagulation). Discussed with daughter on day of discharge. Recommend holding for at least a week to allow for lower GI bleeding to resolve, reevaluate at nursing facility. Recommend shared decision making between accepting physician and family about whether to resume or not. Altered mental status: Mentation At baseline, fatigued but alert and oriented on exam. Debility: Evaluated by therapy, has been referred [facility] for SNF, accepted for therapy/rehab Total time spent on discharge 35 minutes in counseling, documentation, chart review, and direct care with patient. Exam Data for Last 24 hours Vital signs and Labs for Last 24 Hours: Temp Pulse Resp BP Pulse Ox O2 Del Method O2 Flow Rate 98.0 F 105 H 17 140/73 96 Nasal Cannula 2 04/02/24 07:39 04/02/24 07:39 04/02/24 07:39 04/02/24 07:39 04/02/24 07:39 04/02/24 08:29 04/02/24 08:29 Laboratory Results - last 24 hr 03/30/24 23:45: Blood Type O Positive, Antibody Screen Negative, Crossmatch (AHG) See Detail 04/01/24 06:30: TSH 3.06 04/01/24 15:45: Hgb 8.9 L D, Hct 28.6 L 04/01/24 18:50: Sodium 139, Potassium 5.1, Chloride 111 H, Carbon Dioxide 25, Anion Gap 8.1, BUN 56 H, Creatinine 3.20 H, Estimated Creat Clear 16, Estimated GFR 14 L*, Est GFR ( Amer) 17 L*, Glucose 149 H D, Calcium 8.8 04/02/24 06:17: WBC 4.2 L, RBC 3.46 L, Hgb 9.5 L, Hct 30.8 L, MCV 89.0, MCH 27.3, MCHC 30.7 L, RDW 18.6 H, Plt Count 219, MPV 8.1, Neut % (Auto) 69.2, Lymph % (Auto) 17.1, [place] % (Auto) 8.9, Eos % (Auto) 4.1, Baso % (Auto) 0.7, Neut # (Auto) 2.9, Lymph # (Auto) 0.7, [place] # (Auto) 0.4, Eos # (Auto) 0.2, Baso # (Auto) 0.0, Sodium 138, Potassium 4.7, Chloride 110 H, Carbon Dioxide 24, Anion Gap 8.7, BUN 61 H, Creatinine 3.10 H, Estimated Creat Clear 17, Estimated GFR 14 L*, Est GFR ( Amer) 17 L*, Glucose 95 D, Calcium 9.1, Magnesium 1.9, Total Bilirubin 0.7, AST 16, ALT 9 L D, Alkaline Phosphatase 161 H, Total Protein 5.5 L, Albumin 3.1 L, Globulin 2.4, Albumin/Globulin Ratio 1.3 I & O for Last 24 hours: Intake & Output 03/30/24 03/31/24 04/01/24 04/02/24 23:59 23:59 23:59 23:59 Intake Total 270 / 570 1110 / 1350 1360 / 1660 540 / 540 Output Total 400 / 400 500 / 500 150 / 150 0 / 0 Balance -130 / 170 610 / 850 1210 / 1510 540 / 540 Weight 85.531 kg 86.54 kg 85.729 kg 86.438 kg Microbiology Reports for the Last 24 Hours: Microbiology 03/30/24 13:09 Blood Blood Culture - Preliminary NO GROWTH AFTER 48 HOURS 03/30/24 13:01 Blood Blood Culture - Preliminary NO GROWTH AFTER 48 HOURS Constitutional Constitutional: no acute distress, obese, chronically ill appearing and cooperative *Routine HEENT Exam Head: Present normocephalic Eye: Present EOMI and PERRL ENT: Present mucous membranes moist *Routine Neck Exam Neck: Present supple; Absent lymphadenopathy *Routine Respiratory Exam Respiratory: Present prolonged expiratory phase, crackles (fine in bases) and normal respiratory effort; Absent rhonchi or wheezes *Routine Cardiovascular Exam Cardiovascular: Present irregularly irregular *Routine Abdominal Exam Abdominal: Present soft and normoactive bowel sounds; Absent tenderness *Routine Rectal Exam Patient deferred: visual exam *Routine Exam Patient deferred: external exam *Routine Extremities Exam Extremities: Present edema (1+ to knees); Absent cyanosis or clubbing *Routine Skin Exam Skin: Present intact and warm; Absent rash *Routine Neurological Exam Neurological: Present alert, oriented X3 and moving all extremities; Absent altered mental status Results Data Completed and Pending Labs on day of discharge: Labs from last 24 hours 04/02/24 04/01/24 04/01/24 06:17 18:50 15:45 WBC 4.2 L RBC 3.46 L Hgb 9.5 L 8.9 L D Hct 30.8 L 28.6 L MCV 89.0 MCH 27.3 MCHC 30.7 L RDW 18.6 H Plt Count 219 MPV 8.1 Neut % (Auto) 69.2 Lymph % (Auto) 17.1 [place] % (Auto) 8.9 Eos % (Auto) 4.1 Baso % (Auto) 0.7 Neut # (Auto) 2.9 Lymph # (Auto) 0.7 [place] # (Auto) 0.4 Eos # (Auto) 0.2 Baso # (Auto) 0.0 Sodium 138 139 Potassium 4.7 5.1 Chloride 110 H 111 H Carbon Dioxide 24 25 Anion Gap 8.7 8.1 BUN 61 H 56 H Creatinine 3.10 H 3.20 H Estimated Creat Clear 17 16 Estimated GFR 14 L* 14 L* Est GFR ( Amer) 17 L* 17 L* Glucose 95 D 149 H D Calcium 9.1 8.8 Magnesium 1.9 Total Bilirubin 0.7 AST 16 ALT 9 L D Alkaline Phosphatase 161 H Total Protein 5.5 L Albumin 3.1 L Globulin 2.4 Albumin/Globulin Ratio 1.3 TSH Blood Type Antibody Screen Crossmatch ([facility]) 04/01/24 03/30/24 06:30 23:45 WBC RBC Hgb Hct MCV MCH MCHC RDW Plt Count MPV Neut % (Auto) Lymph % (Auto) [place] % (Auto) Eos % (Auto) Baso % (Auto) Neut # (Auto) Lymph # (Auto) [place] # (Auto) Eos # (Auto) Baso # (Auto) Sodium Potassium Chloride Carbon Dioxide Anion Gap BUN Creatinine Estimated Creat Clear Estimated GFR Est GFR ( Amer) Glucose Calcium Magnesium Total Bilirubin AST ALT Alkaline Phosphatase Total Protein Albumin Globulin Albumin/Globulin Ratio TSH 3.06 Blood Type O Positive Antibody Screen Negative Crossmatch ([facility]) See Detail Preliminary micro results at discharge 03/30/24 13:09 Blood Culture - Preliminary Blood NO GROWTH AFTER 48 HOURS 03/30/24 13:01 Blood Culture - Preliminary Blood NO GROWTH AFTER 48 HOURS DS: Diagnosis Discharge Diagnosis (1) Acute on chronic anemia: Status: Acute Code(s): D64.9 - Anemia, unspecified (2) HAZEL (acute kidney injury): Status: Acute Code(s): N17.9 - Acute kidney failure, unspecified (3) Generalized weakness: Status: Acute Code(s): R53.1 - Weakness (4) Acquired hypothyroidism: Status: Chronic Code(s): E03.9 - Hypothyroidism, unspecified (5) Atrial fibrillation: Status: Chronic Code(s): I48.91 - Unspecified atrial fibrillation Qualifiers: Atrial fibrillation type: longstanding persistent Qualified Code(s): I48.11 - Longstanding persistent atrial fibrillation (6) CKD (chronic kidney disease): Status: Chronic Code(s): N18.9 - Chronic kidney disease, unspecified Qualifiers: Chronic kidney disease stage: stage 4 (severe) Qualified Code(s): N18.4 - Chronic kidney disease, stage 4 (severe) (7) CAD (coronary artery disease): Status: Chronic Code(s): I25.10 - Atherosclerotic heart disease of [place] coronary artery without angina pectoris Qualifiers: Coronary Disease-Associated Artery/Lesion type: [place] artery [place] vs. transplanted heart: [place] heart Associated angina: without angina Qualified Code(s): I25.10 - Atherosclerotic heart disease of elim [place] coronary artery without angina pectoris (8) Congestive heart disease: Status: Chronic Code(s): I50.9 - Heart failure, unspecified Qualifiers: Heart failure chronicity: acute on chronic Heart failure type: unspecified Qualified Code(s): I50.9 - Heart failure, unspecified Meds Home Medications and Allergies Home Medications ?Medication ?Instructions ?Recorded ?Confirmed ?Type omeprazole 20 mg capsule,delayed 20 mg PO DAILY 12/01/20 03/30/24 History release apixaban 2.5 mg tablet (Eliquis) 2.5 mg PO BID AFib 12/29/22 03/30/24 History levothyroxine 25 mcg tablet 25 mcg PO DAILY 12/29/22 03/30/24 History bumetanide 1 mg tablet 1 mg PO DAILY #90 tabs 11/18/23 03/30/24 Rx cyanocobalamin (vitamin B-12) 1,000 mcg IM WEEKLY 03/30/24 03/30/24 History 1,000 mcg/mL injection solution isosorbide mononitrate 30 mg 30 mg PO DAILY 03/30/24 03/30/24 History tablet,extended release 24 hr paroxetine HCl 20 mg tablet 20 mg PO DAILY 03/30/24 03/30/24 History sacubitril 24 mg-valsartan 26 mg 1 tab PO BID 03/30/24 03/30/24 History tablet (Entresto) metoprolol tartrate 50 mg tablet 50 mg PO BID #60 tabs 04/02/24 Rx New Prescriptions to Start Prescriptions: metoprolol tartrate Calderon Rosales Allergies Allergy/AdvReac Type Severity Reaction Status Date / Time cefdinir Allergy Severe Hives Verified 01/01/23 22:47 iodine [IODINE] Allergy Severe S-ANAPHYLAX Verified 05/07/22 09:35 IS Sulfa (Sulfonamide Allergy Severe I-HIVES Verified 05/07/22 09:35 Antibiotics) [SULFA (SULFONAMIDE ANTIBIOTICS)] Penicillins [PENICILLINS] Allergy Intermediate I-RASH Verified 05/07/22 09:35 codeine [CODEINE] Allergy Unknown NA-HALLUCIN Verified 05/07/22 09:35 ATIONS hydrogen peroxide Allergy Unknown Verified 05/07/22 09:35 Discharge Plan Disposition Patient Disposition: Xfer SNF Condition: Fair Discharge Order Discharge Orders: Discharge Order (Routine); Ordered 04/02/24 Ordered By: Calderon Rosales Follow up Plan Follow up with: Sinan Booth MD [Staff Physician] - 1 week Prescriptions/Medication Reconciliation: New metoprolol tartrate 50 mg tablet 50 mg PO BID Qty: 60 0RF Continued bumetanide 1 mg tablet 1 mg PO DAILY Qty: 90 2RF levothyroxine 25 mcg tablet 25 mcg PO DAILY cyanocobalamin (vitamin B-12) 1,000 mcg/mL solution 1,000 mcg IM WEEKLY Patient Comments: INJECT 1 ML INTO A MUSCLE 1 TIME EACH WEEK isosorbide mononitrate 30 mg tablet extended release 24 hr 30 mg PO DAILY paroxetine HCl 20 mg tablet 20 mg PO DAILY omeprazole 20 MG capsule,delayed release(DR/EC) 20 mg PO DAILY Held Eliquis 2.5 mg tablet 2.5 mg PO BID Hold Instructions: Pending shared decision taking in a week. Her FWQ2YS3- VASc and has-bled scores are equivocal with essentially the same risk of stroke or major bleed in the next year. Entresto 24-26 mg tablet 1 tab PO BID Hold Instructions: Pending evaluation by accepting physician and repeat labs evaluating kidney function. Discontinued carvedilol 12.5 mg tablet 12.5 mg PO BID Problem Reconciliation Problems Reviewed?: Yes Patient Discharge Instructions ACTIVITY: Continue current activity DIET: continue same diet Patient Instructions: DI for Acute Kidney Injury Print Language: Tunisian Providers Primary Care Provider: Jeremy Pride Admit Provider: Calderon Rosales Attending Provider: Calderon Rosales
[2024-04-02] MEDS: METOPROLOL TARTRATE 5MG/5ML VIAL 5 MG IV (11:35)
[2024-04-02 12:00] VITALS: BP 108/60; PULSE 92; RESP 18; TEMP 36.6; O2SAT 97
--- NOTE | 2024-04-04 23:58 | PC.NURSE ---
no growth after 5 days on blood cultures. results fwd to dr salgado/hospitalist group.
== END 2024-04-02 13:52 ==
LOC: ER 14:23 → 2ND 15:35
PROVIDERS: Nurse Practitioner Family; Admitting Provider Internal Medicine Adolescent Medicine; Emergency Provider Emergency Medicine; PCP Internal Medicine Adolescent Medicine; Visit Provider Internal Medicine Adolescent Medicine
DX: N17.9 Acute kidney failure, unspecified (principal); R53.1 Weakness; J96.21 Acute and chronic respiratory failure with hypoxia; D64.9 Anemia, unspecified; E03.9 Hypothyroidism, unspecified; I48.11 Longstanding persistent atrial fibrillation; N18.4 Chronic kidney disease, stage 4 (severe); I25.10 Atherosclerotic heart disease of native coronary artery without angina pectoris; I50.9 Heart failure, unspecified; J44.9 Chronic obstructive pulmonary disease, unspecified; F41.9 Anxiety disorder, unspecified; I13.0 Hypertensive heart and chronic kidney disease with heart failure and stage 1 through stage 4 chronic kidney disease, or unspecified chronic kidney disease
CPT/HCPCS: 36415; 71045; 71250; 80048; 80050; 80053; 81001; 82272; 82803; 83735; 83880; 84443; 85014; 85018; 85025; 86850; 87040; 97110; 97116; 97162; 97166; 97530; 99285; G0328; G0378; J1956; J7120; P9016

== ENCOUNTER 2024-06-06 11:06 | Outpatient (CLI) | payer MEDICARE, MEDICAID, SELFPAY ==
[2024-06-06] VITALS (11 sets, daily range): BP systolic 126–170; BP diastolic 41–101; PULSE 95–116; RESP 16–20; TEMP 36.1–36.7; O2SAT 91–95
[2024-06-06 11:26] LABS: Hematocrit 22.5 % (37.0-47.0)
[2024-06-06 11:28] LABS: Hemoglobin 6.5 g/dL (12.2-16.2)
[2024-06-06] MEDS: 0.9 % SODIUM CHLORIDE 250 ML 25 ML IV (11:59)
--- NOTE | 2024-06-06 13:56 | PC.NURSE ---
assisted pt to the bsc with 1 person assist. pt voided. clear yellow urine noted. assisted pt with cleaning. noticed red colored stool in depend. assisted pt with changing depend. pt states this has been going on but unable to tell me how long. pt o2 dropped to 81% on 2l but pt quickly recovered after resting. reports increased sob and dizziness. will notify dr smith of these concerns to make sure he's aware.
--- NOTE | 2024-06-06 14:13 | PC.NURSE ---
called dr smith to notify him of concerns with the pt and he states he would like for her to go to the er and be evaluated
--- NOTE | 2024-06-06 14:15 | PC.NURSE ---
called er to notify them that pt will be coming down to see them and to let me know once dr smith has spoke with er
--- NOTE | 2024-06-06 14:40 | PC.NURSE ---
pt tranpsorted to er via wheelchair and assisted to room 6. hooked pt up to o2, [employer], and bp cycling, gave report to er nurses.
--- NOTE | 2024-06-06 14:50 | PC.NURSE ---
called [facility] and patient's daughter to notify them pt is going to the er for further eval.
== END 2024-06-06 14:40 | disposition home or self-care (01) ==
LOC: INF 11:08
PROVIDERS: PCP Internal Medicine Adolescent Medicine; Visit Provider Internal Medicine Adolescent Medicine
DX: D50.9 Iron deficiency anemia, unspecified (principal)
CPT/HCPCS: 36430; 85014; 85018; 86850; P9016

== ENCOUNTER 2024-06-06 14:37 | Inpatient (IN) | payer MEDICARE, SELFPAY ==
[2024-06-06] VITALS (14 sets, daily range): BP systolic 99–155; BP diastolic 46–115; PULSE 90–116; RESP 16–35; TEMP 36.5–37.2; O2SAT 96–100; BMI 25.7
--- NOTE | 2024-06-06 14:41 | ECG_ITS ---
APPROVED REPORT Exam: Resting ECG HR:114 bpm ECG Measurements Heart Rate 114 AXES QRSd 107 QRS 28 QT 333 T 59 QTc 401 Conclusion ATRIAL FIBRILLATION WITH RAPID VENTRICULAR RESPONSE LOW QRS VOLTAGE IN PRECORDIAL LEADS [QRS DEFLECTION < 1.0 mV IN CHEST LEADS] MODERATE ST DEPRESSION [0.05+ mV ST DEPRESSION] ABNORMAL ECG UNCONFIRMED REPORT Electronically signed by : LISA OVIEDO, 06/07/2024 05:19:13
--- NOTE | 2024-06-06 14:57 | XR_ITS ---
FINAL REPORT CLINICAL HISTORY: sob COMPARISON: 11/04/2021 FINDINGS: SINGLE-VIEW CHEST There is moderate cardiomegaly. The mediastinum is normal. The lungs are underinflated with small bilateral pleural effusions, new since previous. There is mild bibasilar atelectasis. There is no pneumothorax. IMPRESSION: Bibasilar atelectasis with small pleural effusions. Reviewed, Interpreted and Dictated by Oscar Tenorio MD Transcribed by Jyoti Gallagher Authenticated and [facility]
--- NOTE | 2024-06-06 15:09 | HMH.EDGENADL ---
Discharge Plan Disposition Patient Disposition: Admitted Chief Complaint: Recheck/Abnormal Lab/Rx Clinical Impressions Clinical Impression: CHF (congestive heart failure), GIB (gastrointestinal bleeding), TACO (transfusion associated circulatory overload) Discharge ED Provider: Daniel Tao General Adult HPI <Ranjit Stephens MD - Last Filed: 06/06/24 15:38> General Chief complaint: Recheck/Abnormal Lab/Rx Stated complaint: rectal bleeding, low O2 sat Time Seen by Provider: 06/06/24 14:50 Mode of Arrival: Wheelchair Limitations: No Limitations Description of Symptoms (Recalled from ER Triage Doc. by RN): dizziness,weakness,low h and h History of Present Illness HPI narrative: Patient is a 88-year-old female with past medical history of smoldering GI bleed, COPD, atrial fibrillation on anticoagulation, CKD, CHF who presents emergency department for evaluation of shortness of breath. I discussed case with Dr. Guerra. Patient has had a smoldering GI bleed for which workup has been ultimately unable to find an etiology so far and has reportedly had EGD from above has yet to have colonoscopy. She has had chronic anemia requiring transfusion intermittently however recently her hemoglobin today was 6.5 from 9.5. She has had bloody bowel movements as of late. Dr. Pride arranged for transfusion of 2 units PRBCs in infusion today however unfortunately patient became dyspneic and transfusion causing her to present here for evaluation. Dr. Pride at this time recommends patient be admitted for observation after initial workup. Upon my evaluation patient is on oxygen at baseline but does not have any idea how much. Related Data Home Medications ?Medication ?Instructions ?Recorded ?Confirmed omeprazole 20 mg capsule,delayed 20 mg PO DAILY 12/01/20 03/30/24 release apixaban 2.5 mg tablet (Eliquis) 2.5 mg PO BID AFib 12/29/22 03/30/24 levothyroxine 25 mcg tablet 25 mcg PO DAILY 12/29/22 03/30/24 cyanocobalamin (vitamin B-12) 1,000 mcg IM WEEKLY 03/30/24 03/30/24 1,000 mcg/mL injection solution isosorbide mononitrate 30 mg 30 mg PO DAILY 03/30/24 03/30/24 tablet,extended release 24 hr paroxetine HCl 20 mg tablet 20 mg PO DAILY 03/30/24 03/30/24 sacubitril 24 mg-valsartan 26 mg 1 tab PO BID 03/30/24 03/30/24 tablet (Entresto) Previous Rx's ?Medication ?Instructions ?Recorded bumetanide 1 mg tablet 1 mg PO DAILY #90 tabs 11/18/23 metoprolol tartrate 50 mg tablet 50 mg PO BID #60 tabs 04/02/24 Allergies Allergy/AdvReac Type Severity Reaction Status Date / Time cefdinir Allergy Severe Hives Verified 06/06/24 11:23 iodine [IODINE] Allergy Severe S-ANAPHYLAX Verified 06/06/24 11:23 IS Sulfa (Sulfonamide Allergy Severe I-HIVES Verified 06/06/24 11:23 Antibiotics) [SULFA (SULFONAMIDE ANTIBIOTICS)] Penicillins [PENICILLINS] Allergy Intermediate I-RASH Verified 06/06/24 11:23 codeine [CODEINE] Allergy Unknown NA-HALLUCIN Verified 06/06/24 11:23 ATIONS hydrogen peroxide Allergy Unknown Other Verified 06/06/24 11:23 [facility] <Ranjit Stephens MD - Last Filed: 06/06/24 15:38> [facility] Disclaimer: The information contained in this section may have been updated after the patient was seen, as this information can be updated by other users. Medical History Normal colonoscopy Respiratory failure with hypoxia TIA (transient ischemic attack) Rapid atrial fibrillation Diverticulitis Anemia requiring transfusions Acute hypoxemic respiratory failure Acute on chronic diastolic CHF (congestive heart failure) SIRS (systemic inflammatory response syndrome) Aortic stenosis COPD (chronic obstructive pulmonary disease) with acute bronchitis Hypotensive episode COPD (chronic obstructive pulmonary disease) Hypoxia Subungual hematoma of left ring finger Gangrene of finger of left hand Acquired hypothyroidism Atrial fibrillation CKD (chronic kidney disease) CAD (coronary artery disease) Cellulitis of left ring finger Gastroenteritis Concussion without loss of consciousness Head contusion Facial contusion Congestive heart disease Pleural effusion Chronic anemia Renal insufficiency Anticoagulated on Coumadin Junctional bradycardia Surgical History Hx of cholecystectomy S/P lumpectomy, left breast Status post total hip replacement, right Family History Other Family history of diabetes mellitus type II Family history of hypertension Social History Smoking Status: Never smoker second hand exposure: No alcohol intake: never counseling given: No substance use type: denies use current occupational status: retired Travel in the last 8 weeks: None household members: none housing: apartment caffeine: Yes Other Medical History Have you received the Flu Vaccine for this season: No Have you received the Pneumonia Vaccine: No <Ranjit Stephens MD - Last Filed: 06/06/24 15:38> ROS Obtained: Yes Systems reviewed as appropriate & no additional complaints except as documented Physical Exam <Ranjit Stephens MD - Last Filed: 06/06/24 15:38> General General appearance: alert and in no apparent distress Head Head exam: atraumatic and normocephalic Eye Eye exam: Present PERRL and EOMI ENT ENT exam: Present mucous membranes moist Neck Neck exam: Present normal inspection Chest Chest inspection: Present normal inspection and symmetric chest wall rise Respiratory Respiratory exam: Present normal lung sounds bilaterally and other (Coarse breath sounds); Absent respiratory distress Cardiovascular Cardiovascular exam: Present regular rate and normal rhythm Abdominal Exam Abdominal exam: Present soft; Absent tenderness External exam: Present other (No bleeding external hemorrhoids) Extremities Exam Extremities exam: Present other (4+ pitting edema bilateral lower extremities) Neurological Exam Neurological exam: Present alert and oriented X3 Psychiatric Psychiatric exam: Present normal affect Skin Skin exam: Present warm and dry Medical Decision Making <Ranjit Stephens MD - Last Filed: 06/06/24 15:38> Medical Records Screening: Per USPSTF and CDC recommendations, given the prevalence of disease in our region, it is our hospital?s policy to screen for HIV and viral Hepatitis for all patients aged 18 and over and those with ongoing risk factors. Dirk Inquiry Pt receiving controlled substance: No Vital Signs: 06/06/24 14:38 06/06/24 15:00 06/06/24 15:02 Temperature 97.7 F 97.9 F Temperature Source Oral Oral Pulse Rate 108 H 107 H Pulse Rate [Right] 100 H Respiratory Rate 20 18 30 H Blood Pressure 132/83 132/83 Blood Pressure [Right Arm] 99/46 L Blood Pressure Mean 99 Blood Pressure Mean [Right Arm] 63 02 Sat by Pulse Oximetry 97 100 100 Oxygen Delivery Method Nasal Cannula Nasal Cannula Nasal Cannula Oxygen Flow Rate (LPM) 4 06/06/24 15:13 06/06/24 15:30 06/06/24 16:02 Temperature Temperature Source Pulse Rate 96 H 114 H 111 H Pulse Rate [Right] Respiratory Rate 22 29 H 19 Blood Pressure 134/64 136/78 155/87 H Blood Pressure [Right Arm] Blood Pressure Mean 103 99 95 Blood Pressure Mean [Right Arm] 02 Sat by Pulse Oximetry 99 100 97 Oxygen Delivery Method Nasal Cannula Nasal Cannula Nasal Cannula Oxygen Flow Rate (LPM) 4 4 4 06/06/24 16:30 06/06/24 17:00 06/06/24 17:30 Temperature Temperature Source Pulse Rate 116 H 91 H 97 H Pulse Rate [Right] Respiratory Rate 25 H 35 H 33 H Blood Pressure 149/91 H 139/81 132/75 Blood Pressure [Right Arm] Blood Pressure Mean 110 109 96 Blood Pressure Mean [Right Arm] 02 Sat by Pulse Oximetry 98 99 98 Oxygen Delivery Method Nasal Cannula Nasal Cannula Nasal Cannula Oxygen Flow Rate (LPM) 4 4 4 Lab Data Lab Results 06/06/24 16:00: WBC 4.6 L, RBC 2.94 L, Hgb 8.4 L D, Hct 27.4 L, MCV 93.2, MCH 28.3, MCHC 30.4 L, RDW 17.9 H, Plt Count 331, MPV 7.9, Neut % (Auto) 77.3, Lymph % (Auto) 11.0, [place] % (Auto) 8.2, Eos % (Auto) 2.2, Baso % (Auto) 1.3, Neut # (Auto) 3.6, Lymph # (Auto) 0.5 L, [place] # (Auto) 0.4, Eos # (Auto) 0.1, Baso # (Auto) 0.1, Sodium 139, Potassium 4.1, Chloride 102, Carbon Dioxide 26, Anion Gap 15.1 H, BUN 43 H, Creatinine 2.30 H, Estimated Creat Clear 19, Estimated GFR 20 L, Est GFR ( Amer) 24 L, Glucose 171 H, Calcium 9.0, Total Bilirubin 0.7, AST 29, ALT 20, Alkaline Phosphatase 145 H, Troponin I 0.02, NT-Pro-B Natriuret Pep 54457 H, Total Protein 5.9 L, Albumin 3.7, Globulin 2.2, Albumin/Globulin Ratio 1.7, HIV 1&2 Antibody Rapid Nonreactive 06/06/24 16:00 06/06/24 16:00 Orders (Tests/Meds): ED MEDICATIONS Generic Name Dose Route Start Last Admin Trade Name Elva PRN Reason Stop Dose Admin Acetaminophen 650 mg 06/06/24 17:47 Acetaminophen 325mg Tab PO 07/06/24 17:46 Q4HP PRN Fever or Mild Pain (1-3) Ondansetron HCl 4 mg 06/06/24 17:47 Ondansetron 4mg/2ml Vial IV 07/06/24 17:46 Q8HP PRN Nausea Discontinued Medications Generic Name Dose Route Start Last Admin Trade Name Freq PRN Reason Stop Dose Admin Bumetanide 1 mg 06/06/24 14:58 06/06/24 15:19 Bumetanide 1mg/4ml Vial IV 06/06/24 14:59 1 mg ONCE ONE Administration ORDERS Category Date Time Status CXR --portable [XR chest portable] Stat Exams 06/06/24 14:57 Completed POCUS Point of Care (ER Only) Stat Exams 06/06/24 14:57 Completed BNP [NT Pro Brain Natriuretic Pep.] Stat Lab 06/06/24 16:00 Completed Basic Metabolic Panel AMLAB Lab 06/07/24 06:00 Ordered Basic Metabolic Panel AMLAB Lab 06/08/24 06:00 Ordered Basic Metabolic Panel AMLAB Lab 06/09/24 06:00 Ordered Basic Metabolic Panel AMLAB Lab 06/10/24 06:00 Ordered Basic Metabolic Panel AMLAB Lab 06/11/24 06:00 Ordered CBC w/Auto Diff [Complete Blood Count Auto Diff] Stat Lab 06/06/24 16:00 Completed CMP [Comprehensive Metabolic Panel] Stat Lab 06/06/24 16:00 Completed Complete Blood Count Auto Diff AMLAB Lab 06/07/24 06:00 Ordered Complete Blood Count Auto Diff AMLAB Lab 06/08/24 06:00 Ordered Complete Blood Count Auto Diff AMLAB Lab 06/09/24 06:00 Ordered Complete Blood Count Auto Diff AMLAB Lab 06/10/24 06:00 Ordered Complete Blood Count Auto Diff AMLAB Lab 06/11/24 06:00 Ordered HIV (1&2) Antibody Rapid Stat Lab 06/06/24 16:00 Completed Hep C Ab with Reflex to RNA Stat Lab 06/06/24 16:00 Received Magnesium AMLAB Lab 06/07/24 06:00 Ordered Magnesium AMLAB Lab 06/08/24 06:00 Ordered Magnesium AMLAB Lab 06/09/24 06:00 Ordered Magnesium AMLAB Lab 06/10/24 06:00 Ordered Magnesium AMLAB Lab 06/11/24 06:00 Ordered Trop I [Troponin I] Stat Lab 06/06/24 16:00 Completed Troponin I Q3H Lab 06/06/24 18:00 Ordered Troponin I Q3H Lab 06/06/24 21:00 Ordered ECG Data Tracing #1: Independently interpreted by me rate is 4114, rhythm is irregular, atrial fibrillation with rapid ventricular response with bundle branch block, nonspecific ST changes, no ST elevation in anatomical contiguous leads. Medical Decision Narrative: In summary patient is a 88-year-old female past medical history described above who presents emergency department for evaluation of acute on chronic blood loss anemia status post 1 unit PRBCs prior to arrival with shortness of breath, chronic hypoxia with unknown baseline on nasal cannula with significant volume overload. Patient is tachycardic low 100s upon arrival, afebrile, significant edema bilateral lower extremities. I suspect that patient is having transfusion associated circulatory overload on top of her baseline CHF. Patient will be given 2 mg Bumex IV. Broad workup will be conducted with hematologic labs, EKG, BNP. Workup largely pending at time of transition of care to the oncoming physician, Dr. Tao. <Daniel Tao MD - Last Filed: 06/06/24 18:18> Vital Signs: 06/06/24 14:38 06/06/24 15:00 06/06/24 15:02 Temperature 97.7 F 97.9 F Temperature Source Oral Oral Pulse Rate 108 H 107 H Pulse Rate [Right] 100 H Respiratory Rate 20 18 30 H Blood Pressure 132/83 132/83 Blood Pressure [Right Arm] 99/46 L Blood Pressure Mean 99 Blood Pressure Mean [Right Arm] 63 02 Sat by Pulse Oximetry 97 100 100 Oxygen Delivery Method Nasal Cannula Nasal Cannula Nasal Cannula Oxygen Flow Rate (LPM) 4 06/06/24 15:13 06/06/24 15:30 06/06/24 16:02 Temperature Temperature Source Pulse Rate 96 H 114 H 111 H Pulse Rate [Right] Respiratory Rate 22 29 H 19 Blood Pressure 134/64 136/78 155/87 H Blood Pressure [Right Arm] Blood Pressure Mean 103 99 95 Blood Pressure Mean [Right Arm] 02 Sat by Pulse Oximetry 99 100 97 Oxygen Delivery Method Nasal Cannula Nasal Cannula Nasal Cannula Oxygen Flow Rate (LPM) 4 4 4 06/06/24 16:30 06/06/24 17:00 06/06/24 17:30 Temperature Temperature Source Pulse Rate 116 H 91 H 97 H Pulse Rate [Right] Respiratory Rate 25 H 35 H 33 H Blood Pressure 149/91 H 139/81 132/75 Blood Pressure [Right Arm] Blood Pressure Mean 110 109 96 Blood Pressure Mean [Right Arm] 02 Sat by Pulse Oximetry 98 99 98 Oxygen Delivery Method Nasal Cannula Nasal Cannula Nasal Cannula Oxygen Flow Rate (LPM) 4 4 4 Lab Data Lab Results 06/06/24 16:00: WBC 4.6 L, RBC 2.94 L, Hgb 8.4 L D, Hct 27.4 L, MCV 93.2, MCH 28.3, MCHC 30.4 L, RDW 17.9 H, Plt Count 331, MPV 7.9, Neut % (Auto) 77.3, Lymph % (Auto) 11.0, [place] % (Auto) 8.2, Eos % (Auto) 2.2, Baso % (Auto) 1.3, Neut # (Auto) 3.6, Lymph # (Auto) 0.5 L, [place] # (Auto) 0.4, Eos # (Auto) 0.1, Baso # (Auto) 0.1, Sodium 139, Potassium 4.1, Chloride 102, Carbon Dioxide 26, Anion Gap 15.1 H, BUN 43 H, Creatinine 2.30 H, Estimated Creat Clear 19, Estimated GFR 20 L, Est GFR ( Amer) 24 L, Glucose 171 H, Calcium 9.0, Total Bilirubin 0.7, AST 29, ALT 20, Alkaline Phosphatase 145 H, Troponin I 0.02, NT-Pro-B Natriuret Pep 16592 H, Total Protein 5.9 L, Albumin 3.7, Globulin 2.2, Albumin/Globulin Ratio 1.7, HIV 1&2 Antibody Rapid Nonreactive Orders (Tests/Meds): ED MEDICATIONS Generic Name Dose Route Start Last Admin Trade Name Freq PRN Reason Stop Dose Admin Acetaminophen 650 mg 06/06/24 17:47 Acetaminophen 325mg Tab PO 07/06/24 17:46 Q4HP PRN Fever or Mild Pain (1-3) Ondansetron HCl 4 mg 06/06/24 17:47 Ondansetron 4mg/2ml Vial IV 07/06/24 17:46 Q8HP PRN Nausea Discontinued Medications Generic Name Dose Route Start Last Admin Trade Name Freq PRN Reason Stop Dose Admin Bumetanide 1 mg 06/06/24 14:58 06/06/24 15:19 Bumetanide 1mg/4ml Vial IV 06/06/24 14:59 1 mg ONCE ONE Administration ORDERS Category Date Time Status CXR --portable [XR chest portable] Stat Exams 06/06/24 14:57 Completed POCUS Point of Care (ER Only) Stat Exams 06/06/24 14:57 Completed BNP [NT Pro Brain Natriuretic Pep.] Stat Lab 06/06/24 16:00 Completed Basic Metabolic Panel AMLAB Lab 06/07/24 06:00 Ordered Basic Metabolic Panel AMLAB Lab 06/08/24 06:00 Ordered Basic Metabolic Panel AMLAB Lab 06/09/24 06:00 Ordered Basic Metabolic Panel AMLAB Lab 06/10/24 06:00 Ordered Basic Metabolic Panel AMLAB Lab 06/11/24 06:00 Ordered CBC w/Auto Diff [Complete Blood Count Auto Diff] Stat Lab 06/06/24 16:00 Completed CMP [Comprehensive Metabolic Panel] Stat Lab 06/06/24 16:00 Completed Complete Blood Count Auto Diff AMLAB Lab 06/07/24 06:00 Ordered Complete Blood Count Auto Diff AMLAB Lab 06/08/24 06:00 Ordered Complete Blood Count Auto Diff AMLAB Lab 06/09/24 06:00 Ordered Complete Blood Count Auto Diff AMLAB Lab 06/10/24 06:00 Ordered Complete Blood Count Auto Diff AMLAB Lab 06/11/24 06:00 Ordered HIV (1&2) Antibody Rapid Stat Lab 06/06/24 16:00 Completed Hep C Ab with Reflex to RNA Stat Lab 06/06/24 16:00 Received Magnesium AMLAB Lab 06/07/24 06:00 Ordered Magnesium AMLAB Lab 06/08/24 06:00 Ordered Magnesium AMLAB Lab 06/09/24 06:00 Ordered Magnesium AMLAB Lab 06/10/24 06:00 Ordered Magnesium AMLAB Lab 06/11/24 06:00 Ordered Trop I [Troponin I] Stat Lab 06/06/24 16:00 Completed Troponin I Q3H Lab 06/06/24 18:00 Ordered Troponin I Q3H Lab 06/06/24 21:00 Ordered Medical Decision Narrative: In summary patient is a 88-year-old female past medical history described above who presents emergency department for evaluation of acute on chronic blood loss anemia status post 1 unit PRBCs prior to arrival with shortness of breath, chronic hypoxia with unknown baseline on nasal cannula with significant volume overload. Patient is tachycardic low 100s upon arrival, afebrile, significant edema bilateral lower extremities. I suspect that patient is having transfusion associated circulatory overload on top of her baseline CHF. Patient will be given 2 mg Bumex IV. Broad workup will be conducted with hematologic labs, EKG, BNP. Workup largely pending at time of transition of care to the oncoming physician, Dr. Tao. Dinh: I assumed primary responsibility for this patient after signout from previous physician. Independent interpretation of workup demonstrates initial hemoglobin 6.5, repeat hemoglobin 5 hours later 8.4. Hematocrit 22.5-27.4. Stable CKD with creatinine 2.3, BUN 43. Patient's LFTs nonactionable. Initial troponin 0.02. BNP 23,000. Chest x-ray independently interpreted and significant for bilateral pleural effusions with pulmonary edema. See radiology read for further interpretation. Because patient in acute heart failure likely exacerbated by TACO, I feel 2 mg Bumex IV is appropriate and patient to be admitted for CHF exacerbation. May also need further transfusion. Hemoglobin may be delusional due to the degree of CHF. Because patient high risk for clinical decompensation, deemed appropriate for inpatient admission. Results were relayed to patient who voiced understanding and patient was agreeable to inpatient admission and management. Patient was admitted to the hospital for further definitive management. Critical Care <Ranjit Stephens MD - Last Filed: 06/06/24 15:38> Critical Care Time Critical Care Time: No <Daniel Tao MD - Last Filed: 06/06/24 18:18> Critical Care Time Critical Care Time: Yes (cardiovascular) Attestation: On 06/06/24, the high probability of a clinically significant, sudden or life threatening deterioration of the following system(s) required my full and direct attention, intervention and personal management. The time I documented below is in addition to time spent performing reported procedures but includes the following listed in this critical care notation. Total Time Total Critical Care Time: 35
[2024-06-06] MEDS: BUMETANIDE 1MG/4ML VIAL 1 MG IV (15:19)
--- NOTE | 2024-06-06 15:36 | PC.NURSE ---
holding 2nd unit of blood until lab results are back per
[2024-06-06 16:22] LABS: Basophils # 0.1 K/mm3 (0-0.2); Basophils % 1.3 % (0.1-2.0); Eosinophils # 0.1 K/mm3 (0.0-0.4); Eosinophils % 2.2 % (0.1-12.0); Hematocrit 27.4 % (37.0-47.0); Lymphocytes # 0.5 K/mm3 (0.7-4.5); Mean Corpuscular HGB Conc 30.4 g/dL (31.8-35.4); Mean Corpuscular Hemoglobin 28.3 pg (27.0-31.2); Mean Corpuscular Volume 93.2 fl (81-99); Mean Platelet Volume 7.9 fl (7.4-10.4); Monocytes # 0.4 K/mm3 (0.1-1.0); Monocytes % 8.2 % (1.7-9.3); Neutrophils # 3.6 K/mm3 (1.8-7.8); Neutrophils % 77.3 % (37.0-80.0); Platelet Count 331 K/mm3 (142-424); Red Blood Count 2.94 M/mm3 (4.20-5.40); Red Cell Distribution Width 17.9 % (11.5-17.5); White Blood Count 4.6 K/mm3 (4.8-10.8)
[2024-06-06 16:30] LABS: Chloride 102 mmol/L (98-107)
[2024-06-06 16:31] LABS: Albumin Level 3.7 g/dl (3.5-5.0); Hemoglobin 8.4 g/dL (12.2-16.2); Potassium 4.1 mmoL/L (3.5-5.1); Sodium 139 mmol/L (136-145)
[2024-06-06 16:33] LABS: Blood Urea Nitrogen 43 mg/dl (7-17); Creatinine Clearance Estimated 19 mL/min (50-200); Estimated Glomerular Filt Rate 20 ml/min (>60); GFR (African American) 24 ML/MIN (>60)
[2024-06-06 16:46] LABS: Alanine Aminotransferase 20 U/L (12-78); Albumin/Globulin Ratio 1.7 (1.1-1.8); Alkaline Phosphatase 145 U/L (38-126); Anion Gap 15.1 mEq/L (5-15); Aspartate Amino Transferase 29 U/L (14-36); Bilirubin,Total 0.7 mg/dl (0.2-1.3); Carbon Dioxide 26 mmol/L (22.0-30.0); Globulin 2.2 g/dL (1.3-3.2); Total Protein,Serum 5.9 g/dl (6.3-8.2)
[2024-06-06 16:50] LABS: Glucose 171 mg/dl (74-100)
[2024-06-06 16:58] LABS: Troponin I 0.02 ng/ml (0.00-0.034)
[2024-06-06 17:13] LABS: HIV (1&2) Antibody Rapid NONREACTIVE (NONREACTIVE)
[2024-06-06 17:17] LABS: NT Pro Brain Natriuretic Pep. 23300 pg/mL (0-450)
--- NOTE | 2024-06-06 17:29 | PC.NURSE ---
DR [place] SPEAKING WITH HOSPITALIST
--- NOTE | 2024-06-06 17:33 | PC.NURSE ---
rounded on patient , patient given ice chips at this time.
--- NOTE | 2024-06-06 18:10 | PC.NURSE ---
Report called to ANNETTE Dale on Med Surg.
[2024-06-06 20:46] LABS: Troponin I 0.03 ng/ml (0.00-0.034)
--- NOTE | 2024-06-06 23:25 | EXP.HP ---
History of Present Illness *Admission Date: 06/06/24 *Reason for visit:: SOB *History of present illness: Patient is a 88-year-old female with past medical history of CKD stage IV, COPD, hypothyroidism, hypertension, atrial fibrillation on eliquis who presents to the hospital due to shortness of breath. Patient was supposed to get 2 units of blood transfusion today however patient became short of breath and was sent to the hospital for further evaluation. At time of my evaluation patient denies chest pain nausea vomiting diarrhea constipation dysuria fevers and chills on further evaluation patient appeared to be in CHF exacerbation and was admitted for further management [facility] Disclaimer: The information contained in this section may have been updated after the patient was seen, as this information can be updated by other users. Medical History Normal colonoscopy Respiratory failure with hypoxia TIA (transient ischemic attack) Rapid atrial fibrillation Diverticulitis Anemia requiring transfusions Acute hypoxemic respiratory failure Acute on chronic diastolic CHF (congestive heart failure) SIRS (systemic inflammatory response syndrome) Aortic stenosis COPD (chronic obstructive pulmonary disease) with acute bronchitis Hypotensive episode COPD (chronic obstructive pulmonary disease) Hypoxia Subungual hematoma of left ring finger Gangrene of finger of left hand Acquired hypothyroidism Atrial fibrillation CKD (chronic kidney disease) CAD (coronary artery disease) Cellulitis of left ring finger Gastroenteritis Concussion without loss of consciousness Head contusion Facial contusion Congestive heart disease Pleural effusion Chronic anemia Renal insufficiency Anticoagulated on Coumadin Junctional bradycardia Surgical History Hx of cholecystectomy S/P lumpectomy, left breast Status post total hip replacement, right Family History Other Family history of diabetes mellitus type II Family history of hypertension Social History (Updated 06/06/24 @ 18:42 by Hermila Jamison RN) Smoking Status: Never smoker second hand exposure: No alcohol intake: never counseling given: No substance use type: denies use current occupational status: retired Travel in the last 8 weeks: None household members: none housing: apartment caffeine: Yes Other Medical History Have you received the Flu Vaccine for this season: No Have you received the Pneumonia Vaccine: Yes Review of Systems Review of Systems Review of systems (narrative): as per HPI Meds Home Medications and Allergies Home Medications ?Medication ?Instructions ?Recorded ?Confirmed ?Type omeprazole 20 mg capsule,delayed 20 mg PO DAILY 12/01/20 06/06/24 History release apixaban 2.5 mg tablet (Eliquis) 2.5 mg PO BID AFib 12/29/22 06/06/24 History levothyroxine 25 mcg tablet 25 mcg PO DAILY 12/29/22 06/06/24 History bumetanide 1 mg tablet 1 mg PO DAILY #90 tabs 11/18/23 06/06/24 Rx cyanocobalamin (vitamin B-12) 1,000 mcg IM WEEKLY 03/30/24 03/30/24 History 1,000 mcg/mL injection solution isosorbide mononitrate 30 mg 30 mg PO DAILY 03/30/24 06/06/24 History tablet,extended release 24 hr paroxetine HCl 20 mg tablet 20 mg PO DAILY 03/30/24 06/06/24 History sacubitril 24 mg-valsartan 26 mg 1 tab PO BID 03/30/24 06/06/24 History tablet (Entresto) metoprolol tartrate 50 mg tablet 50 mg PO BID #60 tabs 04/02/24 06/06/24 Rx New Prescriptions to Start Prescriptions: Allergies Allergy/AdvReac Type Severity Reaction Status Date / Time cefdinir Allergy Severe Hives Verified 06/06/24 11:23 iodine [IODINE] Allergy Severe S-ANAPHYLAX Verified 06/06/24 11:23 IS Sulfa (Sulfonamide Allergy Severe I-HIVES Verified 06/06/24 11:23 Antibiotics) [SULFA (SULFONAMIDE ANTIBIOTICS)] Penicillins [PENICILLINS] Allergy Intermediate I-RASH Verified 06/06/24 11:23 codeine [CODEINE] Allergy Unknown NA-HALLUCIN Verified 06/06/24 11:23 ATIONS hydrogen peroxide Allergy Unknown Other Verified 06/06/24 11:23 Exam Data for Last 24 hours Vital signs and Labs for Last 24 Hours: Temp Pulse Resp BP Pulse Ox O2 Del Method O2 Flow Rate 99.0 F 113 H 16 138/81 96 Nasal Cannula 4 06/06/24 20:00 06/06/24 20:00 06/06/24 20:00 06/06/24 20:00 06/06/24 20:00 06/06/24 23:00 06/06/24 23:00 Laboratory Results - last 24 hr 06/06/24 16:00: WBC 4.6 L, RBC 2.94 L, Hgb 8.4 L D, Hct 27.4 L, MCV 93.2, MCH 28.3, MCHC 30.4 L, RDW 17.9 H, Plt Count 331, MPV 7.9, Neut % (Auto) 77.3, Lymph % (Auto) 11.0, [place] % (Auto) 8.2, Eos % (Auto) 2.2, Baso % (Auto) 1.3, Neut # (Auto) 3.6, Lymph # (Auto) 0.5 L, [place] # (Auto) 0.4, Eos # (Auto) 0.1, Baso # (Auto) 0.1, Sodium 139, Potassium 4.1, Chloride 102, Carbon Dioxide 26, Anion Gap 15.1 H, BUN 43 H, Creatinine 2.30 H, Estimated Creat Clear 19, Estimated GFR 20 L, Est GFR ( Amer) 24 L, Glucose 171 H, Calcium 9.0, Total Bilirubin 0.7, AST 29, ALT 20, Alkaline Phosphatase 145 H, Troponin I 0.02, NT-Pro-B Natriuret Pep 53422 H, Total Protein 5.9 L, Albumin 3.7, Globulin 2.2, Albumin/Globulin Ratio 1.7, HIV 1&2 Antibody Rapid Nonreactive 06/06/24 19:49: Troponin I 0.03 I & O for Last 24 hours: Intake & Output 06/03/24 06/04/24 06/05/24 06/06/24 23:59 23:59 23:59 23:59 Weight 70.307 kg Constitutional Constitutional: no acute distress *Routine HEENT Exam Head: Present normocephalic Eye: Present EOMI and PERRL ENT: Present mucous membranes moist *Routine Neck Exam Neck: Present supple; Absent lymphadenopathy *Routine Respiratory Exam Respiratory: Present CTA bilaterally *Routine Cardiovascular Exam Cardiovascular: Present irregular rhythm *Routine Abdominal Exam Abdominal: Present soft and normoactive bowel sounds; Absent tenderness *Routine Rectal Exam Rectal:: deferred *Routine Genitalia Exam Genitalia:: deferred *Routine Extremities Exam Extremities: Present edema; Absent cyanosis or clubbing *Routine Skin Exam Skin: Present warm; Absent rash *Routine Neurological Exam Neurological: Present alert and oriented X3 Assessment and Plan *Assessment and plan (1) TACO (transfusion associated circulatory overload): Status: Acute Category: Medical Code(s): E87.71 - Transfusion associated circulatory overload (2) CHF (congestive heart failure): Status: Acute Category: Medical Code(s): I50.9 - Heart failure, unspecified (3) Atrial fibrillation: Status: Chronic Qualifiers: Atrial fibrillation type: longstanding persistent Qualified Code(s): I48.11 - Longstanding persistent atrial fibrillation Category: Medical Code(s): I48.91 - Unspecified atrial fibrillation (4) CKD (chronic kidney disease): Status: Chronic Qualifiers: Chronic kidney disease stage: stage 4 (severe) Qualified Code(s): N18.4 - Chronic kidney disease, stage 4 (severe) Category: Medical Code(s): N18.9 - Chronic kidney disease, unspecified (5) CAD (coronary artery disease): Status: Chronic Qualifiers: Coronary Disease-Associated Artery/Lesion type: [place] artery [place] vs. transplanted heart: [place] heart Associated angina: without angina Qualified Code(s): I25.10 - Atherosclerotic heart disease of [place] coronary artery without angina pectoris Category: Medical Code(s): I25.10 - Atherosclerotic heart disease of [place] coronary artery without angina pectoris (6) Congestive heart disease: Status: Chronic Qualifiers: Heart failure chronicity: acute on chronic Heart failure type: unspecified Qualified Code(s): I50.9 - Heart failure, unspecified Category: Medical Code(s): I50.9 - Heart failure, unspecified Plan Patient is a 88-year-old female with past medical history of CKD stage IV, COPD, hypothyroidism, hypertension, atrial fibrillation on eliquis who presents to the hospital due to shortness of breath. Patient was supposed to get 2 units of blood transfusion today however patient became short of breath and was sent to the hospital for further evaluation. At time of my evaluation patient denies chest pain nausea vomiting diarrhea constipation dysuria fevers and chills on further evaluation patient appeared to be in CHF exacerbation and was admitted for further management Assessment and plan Acute on chronic CHF, unknown EF TACO Start 20 IV twice daily Lasix Closely monitor creatinine Consult cardiology Monitor on cardiac telemetry Resume home Entresto, History of atrial fibrillation Resume home metoprolol 50 twice daily monitor on cardiac telemetry Continue Eliquis CKD stage IV Closely monitor BMP Creatinine appears to be around baseline of around 2.5 COPD Hypertension Hyperlipidemia -Resume home medications DVT prophylaxis-on Eliquis
[2024-06-06 23:46] LABS: Troponin I 0.03 ng/ml (0.00-0.034)
[2024-06-07] VITALS: BP 157/95; PULSE 100; PULSE 98; RESP 18; TEMP 36.9; O2SAT 97
[2024-06-07 04:00] VITALS: BP 144/89; PULSE 110; PULSE 95; RESP 16; TEMP 36.7; O2SAT 97; BMI 25.8
--- NOTE | 2024-06-07 07:33 | HMH.PHAINT1 ---
Pharmacy Intervention Comments: Home medication list verified using list from pharmacy.
[2024-06-07 07:47] LABS: Chloride 102 mmol/L (98-107); Potassium 4.5 mmoL/L (3.5-5.1); Sodium 140 mmol/L (136-145)
[2024-06-07 07:50] LABS: Anion Gap 10.5 mEq/L (5-15); Blood Urea Nitrogen 43 mg/dl (7-17); Calcium 9.3 mg/dl (8.4-10.2); Carbon Dioxide 32 mmol/L (22.0-30.0); Creatinine Clearance Estimated 18 mL/min (50-200); Estimated Glomerular Filt Rate 19 ml/min (>60); GFR (African American) 23 ML/MIN (>60); Glucose 94 mg/dl (74-100); Magnesium 2.1 mg/dl (1.6-2.3)
[2024-06-07 08:00] VITALS: BP 155/84; PULSE 100; PULSE 94; RESP 17; TEMP 36.6; O2SAT 98
[2024-06-07 08:24] LABS: Basophils % 0.7 % (0.1-2.0); Eosinophils # 0.2 K/mm3 (0.0-0.4); Eosinophils % 3.4 % (0.1-12.0); Hematocrit 26.6 % (37.0-47.0); Hemoglobin 8.1 g/dL (12.2-16.2); Lymphocytes # 0.7 K/mm3 (0.7-4.5); Lymphocytes % 13.7 % (10-50); Mean Corpuscular HGB Conc 30.4 g/dL (31.8-35.4); Mean Corpuscular Volume 92.1 fl (81-99); Mean Platelet Volume 8.7 fl (7.4-10.4); Monocytes # 0.6 K/mm3 (0.1-1.0); Neutrophils # 3.8 K/mm3 (1.8-7.8); Neutrophils % 71.3 % (37.0-80.0); Platelet Count 326 K/mm3 (142-424); Red Blood Count 2.89 M/mm3 (4.20-5.40); White Blood Count 5.4 K/mm3 (4.8-10.8)
[2024-06-07] MEDS: SACUBITRIL/VALSARTAN 24-26MG TABLET 1 EACH PO ×2 (08:53→20:07)
[2024-06-07] MEDS: ISOSORBIDE MONO 30MG TAB.ER.24H 30 MG PO (08:53)
[2024-06-07] MEDS: METOPROLOL TARTRATE 50MG TABLET 50 MG PO ×2 (08:53→20:07)
[2024-06-07] MEDS: LEVOTHYROXINE 25MCG (0.025MG) TAB 25 MCG PO (08:53)
[2024-06-07] MEDS: PARoxetine 20MG TABLET 20 MG PO (08:55)
[2024-06-07] MEDS: APIXABAN 5MG TABLET 2.5 MG PO (08:55)
[2024-06-07 12:00] VITALS: BP 161/84; PULSE 85; PULSE 86; RESP 20; TEMP 36.8; O2SAT 95
--- NOTE | 2024-06-07 12:58 | EXP.CARD.CON ---
History of Present Illness History of Present Illness Consult date: 06/07/24 Requesting physician: Georgina Mayorga Consult reason: congestive heart failure Chief complaint: CURIEL Additional Medical History:: History of present illness: 88-year-old white female with history of paroxysmal atrial fibrillation, CKD 4, HFpEF, chronic recurrent GI bleeding with severe anemia. She saw her PCP recently as an outpatient. Hemoglobin was down to 6.8 and she was arranged for 2 units of transfusion yesterday but became more dyspneic and was referred to the emergency room. On arrival she had mild altered mental status, proBNP 23,000, GFR 20, small bilateral pleural effusions. She was transfused and admitted overnight. This morning patient is very groggy and is not interested in providing additional history at this time. There is no family in the room. [facility] Disclaimer: The information contained in this section may have been updated after the patient was seen, as this information can be updated by other users. Medical History Normal colonoscopy Respiratory failure with hypoxia TIA (transient ischemic attack) Rapid atrial fibrillation Diverticulitis Anemia requiring transfusions Acute hypoxemic respiratory failure Acute on chronic diastolic CHF (congestive heart failure) SIRS (systemic inflammatory response syndrome) Aortic stenosis COPD (chronic obstructive pulmonary disease) with acute bronchitis Hypotensive episode COPD (chronic obstructive pulmonary disease) Hypoxia Subungual hematoma of left ring finger Gangrene of finger of left hand Acquired hypothyroidism Atrial fibrillation CKD (chronic kidney disease) CAD (coronary artery disease) Cellulitis of left ring finger Gastroenteritis Concussion without loss of consciousness Head contusion Facial contusion Congestive heart disease Pleural effusion Chronic anemia Renal insufficiency Anticoagulated on Coumadin Junctional bradycardia Surgical History Hx of cholecystectomy S/P lumpectomy, left breast Status post total hip replacement, right Family History Other Family history of diabetes mellitus type II Family history of hypertension Social History Smoking Status: Never smoker second hand exposure: No alcohol intake: never counseling given: No substance use type: denies use current occupational status: retired Travel in the last 8 weeks: None household members: none housing: apartment caffeine: Yes Review of Systems Review of Systems Review of systems:: unable to obtain Exam Data for Last 24 hours Vital signs and Labs for Last 24 Hours: Temp Pulse Resp BP Pulse Ox O2 Del Method O2 Flow Rate 97.8 F 94 H 17 155/84 H 98 Nasal Cannula 4 06/07/24 08:00 06/07/24 08:00 06/07/24 08:00 06/07/24 08:00 06/07/24 08:00 06/07/24 11:00 06/07/24 11:00 Laboratory Results - last 24 hr 06/06/24 16:00: WBC 4.6 L, RBC 2.94 L, Hgb 8.4 L D, Hct 27.4 L, MCV 93.2, MCH 28.3, MCHC 30.4 L, RDW 17.9 H, Plt Count 331, MPV 7.9, Neut % (Auto) 77.3, Lymph % (Auto) 11.0, [place] % (Auto) 8.2, Eos % (Auto) 2.2, Baso % (Auto) 1.3, Neut # (Auto) 3.6, Lymph # (Auto) 0.5 L, [place] # (Auto) 0.4, Eos # (Auto) 0.1, Baso # (Auto) 0.1, Sodium 139, Potassium 4.1, Chloride 102, Carbon Dioxide 26, Anion Gap 15.1 H, BUN 43 H, Creatinine 2.30 H, Estimated Creat Clear 19, Estimated GFR 20 L, Est GFR ( Amer) 24 L, Glucose 171 H, Calcium 9.0, Total Bilirubin 0.7, AST 29, ALT 20, Alkaline Phosphatase 145 H, Troponin I 0.02, NT-Pro-B Natriuret Pep 33924 H, Total Protein 5.9 L, Albumin 3.7, Globulin 2.2, Albumin/Globulin Ratio 1.7, HIV 1&2 Antibody Rapid Nonreactive 06/06/24 19:49: Troponin I 0.03 06/06/24 23:08: Troponin I 0.03 06/07/24 07:05: WBC 5.4, RBC 2.89 L, Hgb 8.1 L, Hct 26.6 L, MCV 92.1, MCH 28.0, MCHC 30.4 L, RDW 18.0 H, Plt Count 326, MPV 8.7, Neut % (Auto) 71.3, Lymph % (Auto) 13.7, [place] % (Auto) 11.0 H, Eos % (Auto) 3.4, Baso % (Auto) 0.7, Neut # (Auto) 3.8, Lymph # (Auto) 0.7, [place] # (Auto) 0.6, Eos # (Auto) 0.2, Baso # (Auto) 0.0, Sodium 140, Potassium 4.5, Chloride 102, Carbon Dioxide 32 H, Anion Gap 10.5, BUN 43 H, Creatinine 2.40 H, Estimated Creat Clear 18, Estimated GFR 19 L*, Est GFR ( Amer) 23 L, Glucose 94 D, Calcium 9.3, Magnesium 2.1 I & O for Last 24 hours: Intake & Output 06/04/24 06/05/24 06/06/24 06/07/24 23:59 23:59 23:59 23:59 Intake Total 360 / 360 Output Total 0 / 0 Balance 360 / 360 Weight 155 lb 155 lb 0.112 oz Constitutional Constitutional: no acute distress and cooperative *Routine HEENT Exam Eye: Present PERRL *Routine Respiratory Exam Respiratory: Present CTA bilaterally; Absent accessory muscle use, wheezes or crackles *Routine Cardiovascular Exam Cardiovascular: Present irregularly irregular; Absent murmur, gallop or rubs *Routine Abdominal Exam Abdominal: Present soft; Absent tenderness *Routine Extremities Exam Extremities: Present pulses intact; Absent cyanosis or edema *Routine Skin Exam Skin: Present intact; Absent erythema or wounds *Routine Neurological Exam Neurological: Present alert and oriented X3 Routine Psychiatric Exam Psychiatric: Present cooperative Meds Home Medications and Allergies Home Medications ?Medication ?Instructions ?Recorded ?Confirmed ?Type omeprazole 20 mg capsule,delayed 20 mg PO DAILY 12/01/20 06/06/24 History release apixaban 2.5 mg tablet (Eliquis) 2.5 mg PO BID AFib 12/29/22 06/06/24 History levothyroxine 25 mcg tablet 25 mcg PO DAILY 12/29/22 06/06/24 History bumetanide 1 mg tablet 1 mg PO DAILY #90 tabs 11/18/23 06/06/24 Rx isosorbide mononitrate 30 mg 30 mg PO DAILY 03/30/24 06/06/24 History tablet,extended release 24 hr paroxetine HCl 20 mg tablet 20 mg PO DAILY 03/30/24 06/06/24 History metoprolol tartrate 50 mg tablet 50 mg PO BID #60 tabs 04/02/24 06/06/24 Rx New Prescriptions to Start Prescriptions: Allergies Allergy/AdvReac Type Severity Reaction Status Date / Time cefdinir Allergy Severe Hives Verified 06/06/24 11:23 iodine [IODINE] Allergy Severe S-ANAPHYLAX Verified 06/06/24 11:23 IS Sulfa (Sulfonamide Allergy Severe I-HIVES Verified 06/06/24 11:23 Antibiotics) [SULFA (SULFONAMIDE ANTIBIOTICS)] Penicillins [PENICILLINS] Allergy Intermediate I-RASH Verified 06/06/24 11:23 codeine [CODEINE] Allergy Unknown NA-HALLUCIN Verified 06/06/24 11:23 ATIONS hydrogen peroxide Allergy Unknown Other Verified 06/06/24 11:23 Assessment and Plan *Assessment and plan (1) Atrial fibrillation: Status: Chronic Qualifiers: Atrial fibrillation type: longstanding persistent Qualified Code(s): I48.11 - Longstanding persistent atrial fibrillation Category: Medical Code(s): I48.91 - Unspecified atrial fibrillation (2) (HFpEF) heart failure with preserved ejection fraction: Status: Acute Category: Medical Code(s): I50.30 - Unspecified diastolic (congestive) heart failure (3) Acute on chronic kidney failure: Status: Resolved Category: Medical Code(s): N17.9 - Acute kidney failure, unspecified; N18.9 - Chronic kidney disease, unspecified (4) GIB (gastrointestinal bleeding): Status: Acute Category: Medical Code(s): K92.2 - Gastrointestinal hemorrhage, unspecified (5) Chronic anemia: Status: Chronic Category: Medical Code(s): D64.9 - Anemia, unspecified Plan Peristant A-fib - chronic or paroxysmal? - rate controlled here on Metoprolol - DC Eliquis due to active GI bleeding with multiple transfusions HFpEF - NYHA = 3-4 on arrival with ProBNP 23k and small bilateral effusions - she received bumex on arrival - monitor volume status post 2 unit transfusion - cont entresto - add Farixga Chronic recurring GI bleed - since 2016 per chart but still on Eliquis? - s/p 2 unit transfusion this admission - DC Eliquis - risks outweigh benefits COPD with chronic hypoxic resp failure - on 2L/min baseline, requireing 4L/min here in setting of severe anemia - plans per pulm CKD-IV - Baseline Cr 2-3
--- NOTE | 2024-06-07 13:20 | XR_ITS ---
FINAL REPORT CLINICAL HISTORY: CHF, COPD COMPARISON: 06/06/2024 FINDINGS: Mild cardiomegaly is once again noted. The mediastinum is normal. There are chronic interstitial appearing opacities in the lung bases. Small bilateral pleural effusions are present, smaller than seen on the previous exam of June 06. There is no pneumothorax. There is no osseous abnormality. Surgical clips are noted in the left axilla. IMPRESSION: Slightly smaller bilateral pleural effusions when compared with yesterday's exam. Chronic interstitial appearing opacities in the lung bases. Reviewed, Interpreted and Dictated by Oscar Tenorio MD Transcribed by Monie Mcpherson Authenticated and [facility]
[2024-06-07] MEDS: DAPAGLIFLOZIN PROPANEDIOL 10 MG TABLET PO (13:37)
[2024-06-07 16:00] VITALS: BP 156/66; PULSE 82; PULSE 90; RESP 20; TEMP 36.6; O2SAT 97
--- NOTE | 2024-06-07 16:16 | P.PN_ITS ---
Subjective *Date: 06/07/24 *Time: 16:16 Interval history: Patient was somnolent this morning, but more alert and conversational this afternoon. Responding to all questions appropriately. Denies chest pain, shortness of breath. Exam Data for Last 24 hours Vital signs and Labs for Last 24 Hours: Temp Pulse Resp BP Pulse Ox O2 Del Method O2 Flow Rate 98.3 F 86 20 161/84 H 95 Nasal Cannula 4 06/07/24 12:00 06/07/24 12:00 06/07/24 12:00 06/07/24 12:00 06/07/24 12:00 06/07/24 15:00 06/07/24 15:00 Laboratory Results - last 24 hr 06/06/24 16:00: WBC 4.6 L, RBC 2.94 L, Hgb 8.4 L D, Hct 27.4 L, MCV 93.2, MCH 28.3, MCHC 30.4 L, RDW 17.9 H, Plt Count 331, MPV 7.9, Neut % (Auto) 77.3, Lymph % (Auto) 11.0, [place] % (Auto) 8.2, Eos % (Auto) 2.2, Baso % (Auto) 1.3, Neut # (Auto) 3.6, Lymph # (Auto) 0.5 L, [place] # (Auto) 0.4, Eos # (Auto) 0.1, Baso # (Auto) 0.1, Sodium 139, Potassium 4.1, Chloride 102, Carbon Dioxide 26, Anion Gap 15.1 H, BUN 43 H, Creatinine 2.30 H, Estimated Creat Clear 19, Estimated GFR 20 L, Est GFR ( Amer) 24 L, Glucose 171 H, Calcium 9.0, Total Bilirubin 0.7, AST 29, ALT 20, Alkaline Phosphatase 145 H, Troponin I 0.02, NT-Pro-B Natriuret Pep 92851 H, Total Protein 5.9 L, Albumin 3.7, Globulin 2.2, Albumin/Globulin Ratio 1.7, HIV 1&2 Antibody Rapid Nonreactive 06/06/24 19:49: Troponin I 0.03 06/06/24 23:08: Troponin I 0.03 06/07/24 07:05: WBC 5.4, RBC 2.89 L, Hgb 8.1 L, Hct 26.6 L, MCV 92.1, MCH 28.0, MCHC 30.4 L, RDW 18.0 H, Plt Count 326, MPV 8.7, Neut % (Auto) 71.3, Lymph % (Auto) 13.7, [place] % (Auto) 11.0 H, Eos % (Auto) 3.4, Baso % (Auto) 0.7, Neut # (Auto) 3.8, Lymph # (Auto) 0.7, [place] # (Auto) 0.6, Eos # (Auto) 0.2, Baso # (Auto) 0.0, Sodium 140, Potassium 4.5, Chloride 102, Carbon Dioxide 32 H, Anion Gap 10.5, BUN 43 H, Creatinine 2.40 H, Estimated Creat Clear 18, Estimated GFR 19 L*, Est GFR ( Amer) 23 L, Glucose 94 D, Calcium 9.3, Magnesium 2.1 I & O for Last 24 hours: Intake & Output 06/04/24 06/05/24 06/06/24 06/07/24 23:59 23:59 23:59 23:59 Intake Total 560 / 560 Output Total 300 / 300 Balance 260 / 260 Weight 70.307 kg 70.31 kg Constitutional Constitutional: no acute distress *Routine HEENT Exam Head: Present normocephalic Eye: Present EOMI and PERRL ENT: Present mucous membranes moist *Routine Neck Exam Neck: Present supple; Absent lymphadenopathy *Routine Respiratory Exam Respiratory: Present CTA bilaterally *Routine Cardiovascular Exam Cardiovascular: Present RRR *Routine Abdominal Exam Abdominal: Present soft and normoactive bowel sounds; Absent tenderness *Routine Extremities Exam Extremities: Present edema; Absent cyanosis or clubbing Comments: 3+ pitting edema lower extremities. *Routine Skin Exam Skin: Present warm; Absent rash *Routine Neurological Exam Neurological: Present alert and oriented X3 Assessment and Plan *Assessment and plan (1) (HFpEF) heart failure with preserved ejection fraction: Status: Acute Category: Medical Code(s): I50.30 - Unspecified diastolic (congestive) heart failure (2) TACO (transfusion associated circulatory overload): Status: Acute Category: Medical Code(s): E87.71 - Transfusion associated circulatory overload Plan Patient is a 88-year-old female with past medical history of CKD stage IV, COPD, hypothyroidism, hypertension, atrial fibrillation on eliquis who presents to the hospital due to shortness of breath. Patient was supposed to get 2 units of blood transfusion today however patient became short of breath and was sent to the hospital for further evaluation. At time of my evaluation patient denies chest pain nausea vomiting diarrhea constipation dysuria fevers and chills on further evaluation patient appeared to be in CHF exacerbation and was admitted for further management Assessment and plan Acute on chronic CHF, unknown EF TACO Improving with diuresis, but continues to have significant peripheral edema. Patient is also more alert, conversational this morning. ? BNP 23,300 on admission with 4+ bilateral pitting edema. ? IV Lasix 20 mg twice daily. Plan to resume home Bumex 1 mg tomorrow. ? Follow-up ECHO. ? Closely monitor creatinine, stable 2.4. ? Consult cardiology, appreciate recommendation ? Monitor on cardiac telemetry ? Resume home Conrad Impatiencer #Acute on chronic GI bleeds #Acute on chronic normocytic anemia ? Patient and daughter state she has had chronic GI bleeds which has been at tributed to hemorrhoids. Last colonoscopy a few years ago showed polyps. Apparently follows with GI outpatient. ? However, patient had a hemoglobin of 6.5 on day admission requiring transfusion, and had bright red blood bowel movement. Currently hemodynamically stable. ? GI consulted, looking forward to recommendations. ? Started MiraLAX daily for history of hemorrhoids. History of atrial fibrillation Stable and rate controlled. Resume home metoprolol 50 twice daily monitor on cardiac telemetry Continue Eliquis CKD stage IV Closely monitor BMP Creatinine appears to be around baseline of around 2.5, continues to be stable today creatinine 2.4. COPD Hypertension Hyperlipidemia #Hypothyroidism -Resume home Imdur, levothyroxine, metoprolol, DVT prophylaxis-on Eliquis
--- NOTE | 2024-06-07 16:18 | CA_ITS ---
APPROVED REPORT EXAM: Comprehensive 2D, Doppler, and color-flow Echocardiogram Produce Wrapper: Stephanie Damon RVT Ht: 5 ft 4 in Wt: 155lbs BSA: 1.76 BP: 138/81 mmHg Indications: CHF,A-FIB,CAD,ANEMIA,HTN,HLD,COPD 2D Dimensions LA Volume 114.80 mL LA Volume Index 65.23 mL/m2 (M/F) 16-34 M-Mode Dimensions RVDd 3.15 cm (0.9-2.6) LA Diam 4.81 cm (1.9-4.0) LVDd 3.83 cm (3.5-5.7) LVDs 2.76 cm (3.5-5.7) IVSd 1.53 cm (0.6-1.1) PWd 1.02 cm (0.6-1.1) EF (Teich) 54.80% FS 27.90% EDV (Teich) 63.10 mL TAPSE 1.17 (<1.7) ESV (Teich) 28.50 mL Aortic Valve SERINA Index 1.22 cm2/m2 AoV Peak Moe. 181.0 (50-130 cm/s) AI PHT 1614.00 ms AO Peak GR. 13.10 mmHg AO Mean GR. 6.00 (<5 mmHg) AO VTI 30.3 (18-25 cm) SERINA (VTI) 2.20 (2.5-4.5 cm2) Pulmonary Valve PV Peak Velocity 68.0 (50-150 cm/s) Tricuspid Valve TR P. Velocity 359.00 cm/s RAP Estimate 10.00 mmHg RVSP 61.60 mmHg Left Ventricle The left ventricle is normal size. The left ventricular systolic function is normal. The left ventricular ejection fraction is within the normal range. There is marked increase in LV wall thickness. IVSD is 1.4 cm. The bases appear hypokinetic relative to the apex. Diastolic dysfunction is indeterminate in the setting of atrial fibrillation. LVEF is 55%. Right Ventricle Right ventricle is moderately dilated. Right ventricle is mildly to moderately hypokinetic. Atria Left atrium is severely dilated. Right atrium is severely dilated. There is no Doppler evidence of interatrial shunt. Aortic Valve The aortic valve is mildly thickened. Aortic sclerosis, but no evidence of aortic stenosis. Mild aortic regurgitation. Mitral Valve The mitral valve leaflets are mildly thickened. No evidence of mitral valve stenosis. Mild mitral regurgitation. Tricuspid Valve The tricuspid valve leaflets are thin and pliable. Moderate tricuspid regurgitation. RVSP is 40-45 mmHg. Pulmonic Valve The pulmonary valve is normal in structure. Mild pulmonic regurgitation. Great Vessels The aortic root is normal in size. The ascending aorta is not well-visualized. The IVC is dilated and not collapsible. RA pressure is estimated at 15 mmHg. Pericardium There is no pericardial effusion. Other Information Study Quality: Fair Conclusion Normal LV systolic function. Marked increase in LV wall thickness. IVSD 1.4 cm. Moderate RV dilation with mild to moderate reduction in RV function. Severe biatrial dilation. Mild MR, mild AI. Moderate TR. RVSP 40-45 mmHg. In the setting of marked increase in LV wall thickness, severe biatrial dilation, conduction abnormalities, and presence of HF symptoms, the above findings are possibly suggestive of underlying infiltrative disease, namely cardiac amyloidosis. Further evaluation with cardiac MRI (amyloidosis protocol) + PYP nuclear scan + amyloidosis lab testing is recommended. Electronically signed by : Clare Gonzalez MD 06/08/2024 12:26:11
[2024-06-07 16:38] LABS: Hematocrit 25.6 % (37.0-47.0); Hemoglobin 7.9 g/dL (12.2-16.2)
[2024-06-07] MEDS: FUROSEMIDE 20 MG/2 ML VIAL IV (17:33)
[2024-06-07] MEDS: POLYETHYLENE GLYCOL 3350 17 GM PACKET PO (17:33)
--- NOTE | 2024-06-07 19:37 | PC.NURSE ---
Addendum entered by Monica Yoon RN 06/07/24 19:44: pt had a large bowel movement this shift with bright red blood present. MD notified and examined. H&H rechecked, pt started on miralax for history of hemorrhoids. Original Note: pt is a&o x4 and currently resting in bed. wheezes noted on auscultation. pt has slept majority of the shift. lasix dose increased to remove more fluid. pt still has BLE edema. minimal urine output noted today. purewick applied. pt has no complaints at this time, says that she is just tired. call light within reach.
[2024-06-07 20:00] VITALS: BP 142/83; PULSE 103; PULSE 127; RESP 18; TEMP 36.9; O2SAT 93
[2024-06-07] MEDS: ONDANSETRON 4MG/2ML VIAL 4 MG IV (20:06)
[2024-06-07] MEDS: PANTOPRAZOLE 40MG TABLET 40 MG PO (20:07)
[2024-06-08] VITALS (20 sets, daily range): BP systolic 92–141; BP diastolic 55–80; PULSE 81–124; RESP 16–22; TEMP 36.3–37.1; O2SAT 90–99; BMI 31.8; BMI 31.6
--- NOTE | 2024-06-08 05:10 | PC.NURSE ---
Patient has remained alert and oriented x4 this shift. Tolerating 4L NC well with o2 stats >90% this shift. Patient has ambulated to/from restroom twice this shift with x1 assist. Wheezing noted throughout when auscultating lungs. +2 pitting edema noted to BLE. Patient has slept most of shift but woke around 0400 and stated she is feeling better and is now more awake. Currently laying in bed watching people walk by in the elena. Patient has remained NPO since 0000. No bowel movements this shift. Bed alarm on for patient safety and call light within reach.
[2024-06-08 05:22] LABS: HCV Ab Non Reactive (Non Reactive)
[2024-06-08] MEDS: LEVOTHYROXINE 25MCG (0.025MG) TAB 25 MCG PO (06:07)
[2024-06-08 07:10] LABS: Chloride 103 mmol/L (98-107); Potassium 4.5 mmoL/L (3.5-5.1); Sodium 140 mmol/L (136-145)
[2024-06-08 07:13] LABS: Anion Gap 8.5 mEq/L (5-15); Blood Urea Nitrogen 44 mg/dl (7-17); Carbon Dioxide 33 mmol/L (22.0-30.0); Creatinine Clearance Estimated 22 mL/min (50-200); Estimated Glomerular Filt Rate 19 ml/min (>60); GFR (African American) 23 ML/MIN (>60); Glucose 101 mg/dl (74-100); Magnesium 2.2 mg/dl (1.6-2.3)
[2024-06-08 07:30] LABS: Basophils % 0.6 % (0.1-2.0); Eosinophils # 0.2 K/mm3 (0.0-0.4); Eosinophils % 3.7 % (0.1-12.0); Hematocrit 26.4 % (37.0-47.0); Hemoglobin 7.8 g/dL (12.2-16.2); Lymphocytes # 0.5 K/mm3 (0.7-4.5); Lymphocytes % 10.6 % (10-50); Mean Corpuscular HGB Conc 29.4 g/dL (31.8-35.4); Mean Corpuscular Hemoglobin 27.7 pg (27.0-31.2); Mean Corpuscular Volume 93.9 fl (81-99); Mean Platelet Volume 7.3 fl (7.4-10.4); Monocytes # 0.5 K/mm3 (0.1-1.0); Monocytes % 10.6 % (1.7-9.3); Neutrophils # 3.8 K/mm3 (1.8-7.8); Neutrophils % 74.5 % (37.0-80.0); Platelet Count 288 K/mm3 (142-424); Red Blood Count 2.81 M/mm3 (4.20-5.40); Red Cell Distribution Width 17.3 % (11.5-17.5); White Blood Count 5.1 K/mm3 (4.8-10.8)
--- NOTE | 2024-06-08 08:07 | SW/DCPLANNER ---
Addendum entered by Ashley Blanc 06/09/24 10:37: I have updated Danni w/ [facility] that patient will return today. Addendum entered by Ashley Blanc 06/08/24 14:46: I have updated Danni w/ [facility] that patient will return tomorrow pending no setbacks. Original Note: This patient currently resides at [facility] level of care. I will continue to follow up w/ Danni at [facility] until medically stable for discharge. Discharge date is unknown at this time.
[2024-06-08] MEDS: PARoxetine 20MG TABLET 20 MG PO (08:25)
[2024-06-08] MEDS: METOPROLOL TARTRATE 50MG TABLET 50 MG PO (08:25)
[2024-06-08] MEDS: SACUBITRIL/VALSARTAN 24-26MG TABLET 1 EACH PO (08:25)
[2024-06-08] MEDS: DAPAGLIFLOZIN PROPANEDIOL 10 MG TABLET PO (08:25)
[2024-06-08] MEDS: ISOSORBIDE MONO 30MG TAB.ER.24H 30 MG PO (08:26)
[2024-06-08] MEDS: SODIUM PHOS/BIPHOSPHATE FLEET 133ML ENEMA 133 ML RC (10:06)
[2024-06-08] MEDS: POLYETHYLENE GLYCOL 3350 17 GM PACKET PO (10:06)
[2024-06-08] MEDS: BUMETANIDE 1 MG TABLET PO (10:07)
--- NOTE | 2024-06-08 10:25 | PC.NURSE ---
per Mich pt is to have both enemas, one every 10 minutes
--- NOTE | 2024-06-08 11:39 | P.PNANES_ITS ---
[facility] Disclaimer: The information contained in this section may have been updated after the patient was seen, as this information can be updated by other users. Medical History Normal colonoscopy Respiratory failure with hypoxia TIA (transient ischemic attack) Rapid atrial fibrillation Diverticulitis Anemia requiring transfusions Acute hypoxemic respiratory failure Acute on chronic diastolic CHF (congestive heart failure) SIRS (systemic inflammatory response syndrome) Aortic stenosis COPD (chronic obstructive pulmonary disease) with acute bronchitis Hypotensive episode COPD (chronic obstructive pulmonary disease) Hypoxia Subungual hematoma of left ring finger Gangrene of finger of left hand Acquired hypothyroidism Atrial fibrillation CKD (chronic kidney disease) CAD (coronary artery disease) Cellulitis of left ring finger Gastroenteritis Concussion without loss of consciousness Head contusion Facial contusion Congestive heart disease Pleural effusion Chronic anemia Renal insufficiency Anticoagulated on Coumadin Junctional bradycardia Surgical History Hx of cholecystectomy S/P lumpectomy, left breast Status post total hip replacement, right Family History Other Family history of diabetes mellitus type II Family history of hypertension Social History Smoking Status: Never smoker second hand exposure: No alcohol intake: never counseling given: No substance use type: denies use current occupational status: retired Travel in the last 8 weeks: None household members: none housing: apartment caffeine: Yes [facility] Anesthesia Checklist Patient Identification Patient Identification: Verbal (Name & ) Structural Data Admitted From: Home Planned Operative Procedure/s: egd,colonoscopy Consent for Planned Operative Procedure(s) Verified: Yes Airway Assessment Mallampati Score:: Class II C-Spine Mobility Assessed: Yes TMJ Mobility Assessed: Yes Dentition: Poor Dentition Neurological Assessment Level of Consciousness: Drowsy, Lethargic and Inappropriate Anesthesia Plan Anesthesia Risk discussed: Yes Anesthesia Plan: Patient unable to respond/answer ASA Class: IV Anesthesia Type: MAC
--- NOTE | 2024-06-08 11:53 | P.PN_ITS ---
Subjective Subjective Date: 06/08/24 Time: 10:00 Interval history: Attempted to see patient twice today but she was out of her room. Her Eliquis is on hold. Hemoglobin stable, she is going for scope today. Repeat echo is pending. Exam Data for Last 24 hours Vital signs and Labs for Last 24 Hours: Temp Pulse Resp BP Pulse Ox O2 Del Method O2 Flow Rate 97.9 F 81 17 128/76 91 L Nasal Cannula 4 06/08/24 08:00 06/08/24 08:00 06/08/24 08:00 06/08/24 08:00 06/08/24 08:00 06/08/24 06:41 06/08/24 06:41 Laboratory Results - last 24 hr 06/06/24 16:00: Hepatitis C Antibody Non reactive 06/07/24 16:29: Hgb 7.9 L, Hct 25.6 L 06/08/24 06:17: WBC 5.1, RBC 2.81 L, Hgb 7.8 L, Hct 26.4 L, MCV 93.9, MCH 27.7, MCHC 29.4 L, RDW 17.3, Plt Count 288, MPV 7.3 L, Neut % (Auto) 74.5, Lymph % (Auto) 10.6, [place] % (Auto) 10.6 H, Eos % (Auto) 3.7, Baso % (Auto) 0.6, Neut # (Auto) 3.8, Lymph # (Auto) 0.5 L, [place] # (Auto) 0.5, Eos # (Auto) 0.2, Baso # (Auto) 0.0, Sodium 140, Potassium 4.5, Chloride 103, Carbon Dioxide 33 H, Anion Gap 8.5, BUN 44 H, Creatinine 2.40 H, Estimated Creat Clear 22, Estimated GFR 19 L*, Est GFR ( Amer) 23 L, Glucose 101 H, Calcium 9.0, Magnesium 2.2 I & O for Last 24 hours: Intake & Output 06/05/24 06/06/24 06/07/24 06/08/24 23:59 23:59 23:59 23:59 Intake Total 620 / 620 Output Total 300 / 300 0 / 0 Balance 320 / 320 0 / 0 Weight 155 lb 155 lb 0.112 oz 191 lb 2 oz Progress Note: A&P Assessment and plan (1) (HFpEF) heart failure with preserved ejection fraction: Status: Acute (2) GIB (gastrointestinal bleeding): Status: Acute (3) CHF (congestive heart failure): Status: Acute (4) Acute on chronic anemia: Status: Acute (5) Generalized weakness: Status: Acute (6) Atrial fibrillation: Status: Chronic Assessment and Plan Assessment and Plan for All Diagnoses:: Peristant A-fib - chronic or paroxysmal? - rate controlled here on Metoprolol - DC Eliquis due to active GI bleeding with multiple transfusions HFpEF - NYHA = 3-4 on arrival with ProBNP 23k and small bilateral effusions - she received bumex on arrival - monitor volume status post 2 unit transfusion - cont entresto, farixga Chronic recurring GI bleed - since 2017 per chart but still on Eliquis? - s/p 2 unit transfusion this admission - DC Eliquis - risks outweigh benefits COPD with chronic hypoxic resp failure - on 2L/min baseline, requireing 4L/min here in setting of severe anemia - plans per pulm CKD-IV - Baseline Cr 2-3
--- NOTE | 2024-06-08 12:16 | HMH.PROCNOTE ---
[facility] Procedure Note Date: 06/08/24 Time: 12:16 Procedure Note:: Upper Endoscopy Procedure Report: Esophagogastroduodenoscopy with cold biopsies and TTS balloon dilation Endoscopost: Shawn Lawton II, MD Referring Physician: Lauro Ho MD Date of Procedure: June 08, 2024 Equipment: Olympus GIF 190 standard upper endoscope Sedation: MAC sedation Indications: Mrs. Bassett is an 88-year-old female who is here for diagnostic EGD/flexible sigmoidoscopy secondary to anemia presumably secondary to chronic GI blood loss. The patient had has had dyspnea. She was admitted with hemoglobin 8.4 and hematocrit 27.4. She does have stage IV chronic kidney disease. She also has history of CHF. She has had bright red rectal bleeding but no melena. EGD is performed to exclude source of chronic GI blood loss. Procedure: Prior to the procedure, a history and physical exam was performed, and patient's medications and allergies were reviewed. The risks, benefits and alternatives of the sedation and procedure were discussed with the patient. All questions were answered and informed consent was obtained. The patient was brought to the procedure room. Patient identification and proposed procedure were verified by the physician and the nurse. The patient was placed in a left lateral decubitus position and the scope was passed under direct vision. Throughout the procedure, the patient's blood pressure, pulse, and oxygen saturations were monitored continuously. The upper GI endoscopy was accomplished without difficulty. The patient tolerated the procedure well. Findings: The scope was passed directly into the upper esophagus and advanced to the third portion of the duodenum. The post bulbar duodenum and duodenal bulb were normal with normal mucosa and conniventes. The scope was withdrawn through a normal duodenal bulb and pylorus into the stomach. There was minimal gastropathy of the antrum. There was mild gastritis of the body and fundus. There were no ulcers or erosions seen within the stomach or duodenum. Cold biopsies were taken from the antrum. Upon retroflexion within the stomach, there was a larger 6 cm hiatal hernia (not paraesophageal). There were no Shaheen's erosions. The scope was then withdrawn into the esophagus. There was a distal esophageal ring with some presbyesophagus. The distal esophageal ring was dilated to 20 mm/60 Palestinian with a TTS hydrostatic balloon. The remainder of the esophageal mucosa was normal. Impression: 1. Distal esophageal ring?not significant status post dilation to 20 mm 2. Presbyesophagus 3. Moderate to large hiatal hernia (6 cm) without Shaheen's erosions 4. Mild gastropathy and mild gastric atrophy Plan: I will follow-up the biopsies. There is no source for the patient's blood loss from the upper GI tract. I will proceed with sigmoidoscopy.
--- NOTE | 2024-06-08 12:42 | SUR.OPER ---
1219 RAPID RESPONSE CALLED BY Guillermina MELO RN 1227 - RESTARTED CASE
--- NOTE | 2024-06-08 12:44 | HMH.PROCNOTE ---
[facility] Procedure Note Date: 06/08/24 Time: 12:44 Procedure Note:: Flexible Sigmoidoscopy Procedure Report: Sigmoidoscopy with hemorrhoid band ligation Endoscopist: Shawn Lawton II, MD Referring physician: Lauro Ho MD Date of Procedure: June 08, 2024 Equipment: Olympus 180 variable stiffness pediatric colonoscope Sedation: MAC sedation Indication: Mrs. Bassett is an 88-year-old female with anemia of chronic disease and anemia secondary to chronic renal insufficiency and stage IV chronic kidney disease. The patient presented however with bright red blood per rectum and her family states that she has had bleeding hemorrhoids for a long period of time. The patient apparently has had a colonoscopy within the last 3 to 5 years with polyps but no other source was identified. She does get blood dripping into the commode. Her hemoglobin and hematocrit upon admission were 8.4 and 27.4. The patient did have some shortness of breath and has exacerbation of her CHF. Procedure: Prior to the procedure, a history and physical exam was performed, and patient's medications and allergies were reviewed. The risks, benefits and alternatives of the sedation and procedure were discussed with the patient. All questions were answered and informed consent was obtained. The patient was brought to the procedure room. Patient identification and proposed procedure were verified by the physician and the nurse. The patient was placed in a left lateral decubitus position and the scope was passed under direct vision. Throughout the procedure, the patient's blood pressure, pulse, and oxygen saturations were monitored continuously. The colonoscopy was accomplished without difficulty. The patient tolerated the procedure well. Findings: On digital rectal examination there was normal rectal tone there were no external hemorrhoids. There were no anal fissures. The scope was then inserted through the anal canal into the rectum and advanced to 30 cm. The scope could not be advanced proximal because of formed stool. Upon withdrawal of the distal sigmoid, rectosigmoid and rectum are grossly normal. Upon retroflexion there were grade 2-3 internal hemorrhoids with moderately active cryptitis. 3 hemorrhoid columns were banded using 3 bands with excellent ligation effect. Impression: 1. Grade 2-3 internal hemorrhoids status post band ligation x 3 Plan: I would encourage [id number] bulking FiberCon 2 tablets p.o. every morning on a long-term daily maintenance basis. I would not pursue full colonoscopy (with bowel preparation and MAC sedation) because of her comorbidities unless she were to have further geovanni hematochezia or marked hemorrhage.
--- NOTE | 2024-06-08 14:46 | EXP.PN ---
Subjective *Date: 06/08/24 *Time: 14:46 Interval history: Patient was lying in bed comfortably this morning and this afternoon after EGD and sigmoidoscopy. No acute concerns. Exam Data for Last 24 hours Vital signs and Labs for Last 24 Hours: Temp Pulse Resp BP Pulse Ox O2 Del Method O2 Flow Rate 98.7 F 95 H 17 122/73 98 Nasal Cannula 3 06/08/24 13:25 06/08/24 13:55 06/08/24 13:55 06/08/24 13:55 06/08/24 13:55 06/08/24 13:55 06/08/24 13:55 Laboratory Results - last 24 hr 06/06/24 16:00: Hepatitis C Antibody Non reactive 06/07/24 16:29: Hgb 7.9 L, Hct 25.6 L 06/08/24 06:17: WBC 5.1, RBC 2.81 L, Hgb 7.8 L, Hct 26.4 L, MCV 93.9, MCH 27.7, MCHC 29.4 L, RDW 17.3, Plt Count 288, MPV 7.3 L, Neut % (Auto) 74.5, Lymph % (Auto) 10.6, [place] % (Auto) 10.6 H, Eos % (Auto) 3.7, Baso % (Auto) 0.6, Neut # (Auto) 3.8, Lymph # (Auto) 0.5 L, [place] # (Auto) 0.5, Eos # (Auto) 0.2, Baso # (Auto) 0.0, Sodium 140, Potassium 4.5, Chloride 103, Carbon Dioxide 33 H, Anion Gap 8.5, BUN 44 H, Creatinine 2.40 H, Estimated Creat Clear 22, Estimated GFR 19 L*, Est GFR ( Amer) 23 L, Glucose 101 H, Calcium 9.0, Magnesium 2.2 I & O for Last 24 hours: Intake & Output 06/05/24 06/06/24 06/07/24 06/08/24 23:59 23:59 23:59 23:59 Intake Total 620 / 620 Output Total 300 / 300 0 / 0 Balance 320 / 320 0 / 0 Weight 70.307 kg 70.31 kg 86.693 kg Constitutional Constitutional: no acute distress *Routine HEENT Exam Head: Present normocephalic Eye: Present EOMI and PERRL ENT: Present mucous membranes moist *Routine Neck Exam Neck: Present supple; Absent lymphadenopathy *Routine Respiratory Exam Respiratory: Present CTA bilaterally *Routine Cardiovascular Exam Cardiovascular: Present RRR *Routine Abdominal Exam Abdominal: Present soft and normoactive bowel sounds; Absent tenderness *Routine Extremities Exam Extremities: Present edema; Absent cyanosis or clubbing Comments: 3+ pitting edema lower extremities. *Routine Skin Exam Skin: Present warm; Absent rash *Routine Neurological Exam Neurological: Present alert and oriented X3 Assessment and Plan *Assessment and plan (1) (HFpEF) heart failure with preserved ejection fraction: Status: Acute Category: Medical Code(s): I50.30 - Unspecified diastolic (congestive) heart failure (2) TACO (transfusion associated circulatory overload): Status: Acute Category: Medical Code(s): E87.71 - Transfusion associated circulatory overload Plan Patient is a 88-year-old female with past medical history of CKD stage IV, COPD, hypothyroidism, hypertension, atrial fibrillation on eliquis who presents to the hospital due to shortness of breath. Patient was supposed to get 2 units of blood transfusion today however patient became short of breath and was sent to the hospital for further evaluation. At time of my evaluation patient denies chest pain nausea vomiting diarrhea constipation dysuria fevers and chills on further evaluation patient appeared to be in CHF exacerbation and was admitted for further management Assessment and plan HFpEF TACO Improving with diuresis, but continues to have moderate peripheral edema. ? BNP 23,300 on admission with 4+ bilateral pitting edema. ? ECHO 06/08/2024 reveals LVEF 55%, severe biatrial dilatation, RVSP 40 to 45%, moderate TR. ? Resumed home Bumex 1 mg. Will give an additional IV Bumex 1 mg this afternoon. ? Closely monitor creatinine, stable 2.4. ? Consult cardiology, appreciate recommendations. ? Monitor on cardiac telemetry ? Resume home Entresto, Imdur. ? Anticipate discharge tomorrow once fluid overload improves. Patient feels nervous to go back to [facility] today as she feels weak and would like another day of diuresis. #Physical deconditioning ? PT/OT consulted, pending recommendations. #Acute on chronic GI bleeds #Acute on chronic normocytic anemia ? Patient and daughter state she has had chronic GI bleeds which has been attributed to hemorrhoids. Last colonoscopy a few years ago apparently showed polyps. Apparently follows with GI outpatient. ? However, patient had a hemoglobin of 6.5 on day admission requiring transfusion, and had bright red blood bowel movement. Currently hemodynamically stable. ? GI consulted, performed sigmoidoscopy with internal bleeding hemorrhoids banding x3. EGD unremarkable. ? Continue MiraLAX daily. History of atrial fibrillation Stable and rate controlled. Resume home metoprolol 50 twice daily monitor on cardiac telemetry Continue Eliquis CKD stage IV Closely monitor BMP Creatinine appears to be around baseline of around 2.5, continues to be stable today creatinine 2.4. COPD Hypertension Hyperlipidemia #Hypothyroidism -Resume home Imdur, levothyroxine, metoprolol, DVT prophylaxis-on Eliquis
[2024-06-08] MEDS: BUMETANIDE 1MG/4ML VIAL 1 MG IV (15:44)
--- NOTE | 2024-06-08 17:11 | PC.NURSE ---
Pt alert to self and place. pt had a EGD and sigmoidoscopy this shift. She was given two enemas to prep for surgery which were effective pt had a large bloody stool. Pt had biopsies taken during EGD and 3 hemorrhoids banded during sigmoidoscopy. After procedure pt had a large incontinent bowel movement and no blood was present in stool. VSS stable after procedure. Pt is now placed on a low sodium diet. Pt ambulating to bathroom with assistx1 and walker. Bed alarm on. pt resting comfortably in bed with no complaints at this time.
[2024-06-08 20:30] LABS: Hematocrit 26.4 % (37.0-47.0); Hemoglobin 7.4 g/dL (12.2-16.2)
[2024-06-08] MEDS: PANTOPRAZOLE 40MG TABLET 40 MG PO (21:06)
[2024-06-09] VITALS: BP 113/64; PULSE 100; PULSE 111; RESP 16; TEMP 37.3; O2SAT 93
[2024-06-09 04:00] VITALS: BP 110/69; PULSE 107; PULSE 110; RESP 16; TEMP 37.2; O2SAT 96; BMI 32.3
--- NOTE | 2024-06-09 05:12 | PC.NURSE ---
Pt is a&ox4 and has tolerated 3L nasal cannula throughout the shift. Expiratory rhonchi heard in lungs bases and bowel sounds active. Pt has had 2 BM with small amounts of bright red blood in stool. She has ambulated to the beside commode with x1 assist. Pt has remained slightly hypotensive with provider aware. She has remained in a-fib on the monitor. Scuds have remained in place. She is currently asleep, call light within reach.
[2024-06-09] MEDS: LEVOTHYROXINE 25MCG (0.025MG) TAB 25 MCG PO (06:11)
[2024-06-09 07:00] LABS: Basophils % 0.6 % (0.1-2.0); Eosinophils # 0.2 K/mm3 (0.0-0.4); Eosinophils % 2.6 % (0.1-12.0); Hematocrit 27.3 % (37.0-47.0); Hemoglobin 7.7 g/dL (12.2-16.2); Lymphocytes # 0.6 K/mm3 (0.7-4.5); Lymphocytes % 9.5 % (10-50); Mean Corpuscular HGB Conc 28.4 g/dL (31.8-35.4); Mean Corpuscular Hemoglobin 26.8 pg (27.0-31.2); Mean Corpuscular Volume 94.5 fl (81-99); Mean Platelet Volume 7.7 fl (7.4-10.4); Monocytes # 0.5 K/mm3 (0.1-1.0); Monocytes % 8.6 % (1.7-9.3); Neutrophils # 4.8 K/mm3 (1.8-7.8); Neutrophils % 78.7 % (37.0-80.0); Platelet Count 313 K/mm3 (142-424); Red Blood Count 2.89 M/mm3 (4.20-5.40); Red Cell Distribution Width 17.4 % (11.5-17.5); White Blood Count 6.1 K/mm3 (4.8-10.8)
[2024-06-09 07:07] LABS: Chloride 102 mmol/L (98-107); Potassium 4.4 mmoL/L (3.5-5.1); Sodium 140 mmol/L (136-145)
[2024-06-09 07:10] LABS: Anion Gap 8.4 mEq/L (5-15); Blood Urea Nitrogen 43 mg/dl (7-17); Calcium 8.7 mg/dl (8.4-10.2); Carbon Dioxide 34 mmol/L (22.0-30.0); Creatinine Clearance Estimated 20 mL/min (50-200); Estimated Glomerular Filt Rate 17 ml/min (>60); GFR (African American) 20 ML/MIN (>60); Glucose 98 mg/dl (74-100)
[2024-06-09 07:52] VITALS: BP 99/54; PULSE 96; RESP 19; TEMP 36.6; O2SAT 98
[2024-06-09 08:00] VITALS: PULSE 60
[2024-06-09] MEDS: SACUBITRIL/VALSARTAN 24-26MG TABLET 1 EACH PO (08:10)
[2024-06-09] MEDS: BUMETANIDE 1 MG TABLET PO (08:10)
[2024-06-09] MEDS: PARoxetine 20MG TABLET 20 MG PO (08:10)
[2024-06-09] MEDS: DAPAGLIFLOZIN PROPANEDIOL 10 MG TABLET PO (08:10)
[2024-06-09] MEDS: METOPROLOL TARTRATE 50MG TABLET 50 MG PO (08:10)
--- NOTE | 2024-06-09 08:40 | HMH.PTEV ---
Physical Therapy Evaluation Rehab PT IP Evaluation Start: 06/08/24 14:41 Freq: ONCE Status: Active Protocol: Document 06/09/24 08:17 MITCH (Rec: 06/09/24 08:39 MITCH [id number]) Subjective/History History History Per H&P: Patient is a 88-year -old female with past medical history of CKD stage IV, COPD, hypothyroidism, hypertension, atrial fibrillation on eliquis who presents to the hospital due to shortness of breath. Patient was supposed to get 2 units of blood transfusion today however patient became short of breath and was sent to the hospital for further evaluation. At time of my evaluation patient denies chest pain nausea vomiting diarrhea constipation dysuria fevers and chills on further evaluation patient appeared to be in CHF exacerbation and was admitted for further management Subjective Subjective Pt reports she lives in long- term care at [facility]. Pt reports she required assistance with mobility and used a RW and w/c . Denies any falls in past month. Does not drive. New diagnosis of cancer in past 12 No months? Rehab PT IP Eval Objective Appearance Patient Behavior Appropriate,Fatigued Patient Orientation Person Difficulty following instructions mild Speech Pattern Soft-Spoken Ambulation Patient Able to Ambulate Yes Ambulation Observation IP General Gait Pattern Observation Wide Based Gait Ambulation Distance (feet) 5 Ambulation Assistive Device Rolling Walker Ambulation Ability Contact Guard/Hand Hold Balance Ability to Arise Able, uses arms to help Sitting Balance Steady, safe Standing Balance Steady, wide stance Transfers Sit to Stand Bed Transfer Ability Moderate x 1 (50% assist) Rehab PT IP prob,goals,plan Problems Date of Evaluation: 06/09/24 PT IP Problems Bed Mobility,Transfers,Gait, Balance,Safety Rehab Potential Rehab Potential Good Equipment Needs Assistive Devices Rolling / Wheeled Walker Plan PT Intervention Plan Bed Mobility,Transfers,Gait, Safety,Therapeutic Exercise Other Intervention Plan 1-2 times PT Plan Frequency Daily Duration LOS Discharge Goals Bed Transfer Ability Minimal x 1 (25% assist) Sit to Stand Chair Transfer Ability Minimal x 1 (25% assist) Ambulation Assistive Device Rolling Walker Ambulation Distance (feet) 10 Discharge Plan PT Discharge Plan Initial physical therapy evaluation performed. Patient presents below baseline at this time in functional mobility, transfers, and strength. PT recommending pt return to short-term rehabilitation stay upon d/c from [facility]. Pt would benefit from skilled PT while at [facility] to prevent further functional decline and maximize safety with mobility. Eval Complexity Eval Charge Codes 69669 - Moderate Complexity PHYSICIAN CERTIFICATION: I certify the specified therapy services for Aileen Bassett are required, authorized, and reviewed every 30 days.
[2024-06-09 09:03] LABS: NT Pro Brain Natriuretic Pep. 16700 pg/mL (0-450)
--- NOTE | 2024-06-09 09:44 | P.PN_ITS ---
Subjective Subjective Date: 06/09/24 Time: 09:00 Interval history: Remains somnolent. She has very little in history. Denies chest pain shortness of breath and palpitations. Patient has sigmoidoscope yesterday and had banding of 3 internal hemorrhoids. Exam Data for Last 24 hours Vital signs and Labs for Last 24 Hours: Temp Pulse Resp BP Pulse Ox O2 Del Method O2 Flow Rate 97.9 F 96 H 19 99/54 L 98 Nasal Cannula 3 06/09/24 07:52 06/09/24 07:52 06/09/24 07:52 06/09/24 07:52 06/09/24 07:52 06/09/24 08:17 06/09/24 08:17 Laboratory Results - last 24 hr 06/08/24 20:20: Hgb 7.4 L, Hct 26.4 L 06/09/24 06:20: WBC 6.1, RBC 2.89 L, Hgb 7.7 L, Hct 27.3 L, MCV 94.5, MCH 26.8 L , MCHC 28.4 L, RDW 17.4, Plt Count 313, MPV 7.7, Neut % (Auto) 78.7, Lymph % (Auto) 9.5 L, [place] % (Auto) 8.6, Eos % (Auto) 2.6, Baso % (Auto) 0.6, Neut # (Auto) 4.8, Lymph # (Auto) 0.6 L, [place] # (Auto) 0.5, Eos # (Auto) 0.2, Baso # (Auto) 0.0, Sodium 140, Potassium 4.4, Chloride 102, Carbon Dioxide 34 H, Anion Gap 8.4, BUN 43 H, Creatinine 2.70 H, Estimated Creat Clear 20, Estimated GFR 17 L*, Est GFR ( Amer) 20 L, Glucose 98, Calcium 8.7, Magnesium 2.0, NT-Pro-B Natriuret Pep 19298 H I & O for Last 24 hours: Intake & Output 06/06/24 06/07/24 06/08/24 06/09/24 23:59 23:59 23:59 23:59 Intake Total 620 / 620 590 / 590 Output Total 300 / 300 0 / 200 200 / 200 Balance 320 / 320 0 / 150 390 / 390 Weight 155 lb 155 lb 0.112 oz 189 lb 9.561 oz 194 lb 6.4 oz Constitutional Constitutional: no acute distress and cooperative *Routine HEENT Exam Eye: Present PERRL *Routine Respiratory Exam Respiratory: Present CTA bilaterally; Absent accessory muscle use, wheezes or crackles *Routine Cardiovascular Exam Cardiovascular: Present RRR, Normal S1 and Normal S2; Absent murmur, gallop or rubs *Routine Abdominal Exam Abdominal: Present soft; Absent tenderness *Routine Extremities Exam Extremities: Present pulses intact; Absent cyanosis or edema *Routine Skin Exam Skin: Present intact; Absent erythema or wounds *Routine Neurological Exam Neurological: Present alert and oriented X3 Routine Psychiatric Exam Psychiatric: Present cooperative Progress Note: A&P Assessment and plan (1) (HFpEF) heart failure with preserved ejection fraction: Status: Acute (2) TACO (transfusion associated circulatory overload): Status: Acute (3) GIB (gastrointestinal bleeding): Status: Acute (4) CHF (congestive heart failure): Status: Acute (5) Acute on chronic anemia: Status: Acute (6) Generalized weakness: Status: Acute (7) Atrial fibrillation: Status: Chronic Assessment and Plan Assessment and Plan for All Diagnoses:: Peristant A-fib - chronic or paroxysmal? - rate controlled here on Metoprolol - 06/09: ok to resume Eliquis post hemorrhoid banding HFpEF - NYHA = 3-4 on arrival with ProBNP 23k and small bilateral effusions - she received bumex on arrival - monitor volume status post 2 unit transfusion - cont sky kwon Chronic recurring GI bleed - since 2017 per chart but still on Eliquis? - s/p 2 unit transfusion this admission -06/09: banding of 3 internal hemorrhoids yesterday COPD with chronic hypoxic resp failure - on 2L/min baseline, requireing 4L/min here in setting of severe anemia - plans per pulm CKD-IV - Baseline Cr 2-3 *Pt CV stable. She can resume Eliquis at 2.5mg dosing. She needs repeat CBC/BMP early next week with f/u in our office. Please advise if we can be of further assistance prior to discharge.
--- NOTE | 2024-06-09 10:55 | HMH.OTEV ---
OT Inpatient Evaluation Rehab OT IP Evaluation Start: 06/08/24 14:41 Freq: ONCE Status: Active Protocol: Document 06/09/24 10:51 RAFA (Rec: 06/09/24 10:54 RAFA [id number]) Rehab OT IP Assessment Subjective History Patient is a 88-year-old female with past medical history of CKD stage IV, COPD, hypothyroidism, hypertension, atrial fibrillation on eliquis who presents to the hospital due to shortness of breath. Patient was supposed to get 2 units of blood transfusion today however patient became short of breath and was sent to the hospital for further evaluation. At time of my evaluation patient denies chest pain nausea vomiting diarrhea constipation dysuria fevers and chills on further evaluation patient appeared to be in CHF exacerbation and was admitted for further management. Patient lives in group home in [facility]. Patient unable to provide accurate PLOF with ADLs and fx'l mobility. Subjective Yeah. Upon arrival, Patient was slummed over in chair with difficulty staying awake. 02 at 75% on 2L of 02. Nursing notified. O2 increased to 90- 91% with 02 increased and alterness. Patient agreed to complete a sit->stand transfers with needing Mod A X2 to stand. Patient continue to exhibit confusion and lethargic behaviors. Assisted patient back in chair with needs met and nursing in room. Objective Patient Orientation Person,Name,Age Right Upper Extremity Gross ROM WFL Left Upper Extremity Gross ROM WFL Transfer Training Sit/Stand Transfer Assist Level Moderate x 2 (50% assist) Rehab OT IP prob,goals,plan Problems Date of Evaluation: 06/09/24 OT IP Problems Bed Mobility,Transfers,Balance ,Self care,Safety Rehab Potential Rehab Potential Good Equipment Needs Assistive Devices Rolling / Wheeled Walker Plan OT intervention Plan Bed Mobility,Transfers,Balance ,Self care,Safety,Therapeutic Exercise OT Plan Frequency Daily Duration LOS Discharge Goals Sit to Stand Chair Transfer Ability Moderate x 1 (50% assist) Discharge Plan OT Discharge Plan Patient to return back to group home home after medical d/c. Patient to continue skilled OT IP services while here at [facility]. Eval Complexity Eval Charge Codes 12566 - Low Complexity PHYSICIAN CERTIFICATION: I certify the specified therapy services for Aileen Bassett are required, authorized, and reviewed every 30 days.
[2024-06-09 12:00] VITALS: BP 138/65; PULSE 100; RESP 16; TEMP 36.9; O2SAT 97
[2024-06-09] MEDS: APIXABAN 5MG TABLET 2.5 MG PO (12:39)
--- NOTE | 2024-06-09 14:37 | EXP.DC.SUM ---
General Admission date:: 06/06/24 HPI HPI HPI: Patient is a 88-year-old female with past medical history of CKD stage IV, COPD, hypothyroidism, hypertension, atrial fibrillation on eliquis who presents to the hospital due to shortness of breath. Patient was supposed to get 2 units of blood transfusion today however patient became short of breath and was sent to the hospital for further evaluation. At time of my evaluation patient denies chest pain nausea vomiting diarrhea constipation dysuria fevers and chills on further evaluation patient appeared to be in CHF exacerbation and was admitted for further management Hospital Course Hospital Course Hospital Course: Patient is a 88-year-old female with past medical history of CKD stage IV, COPD, hypothyroidism, hypertension, atrial fibrillation on eliquis who presents to the hospital due to shortness of breath. Patient was supposed to get 2 units of blood transfusion today however patient became short of breath and was sent to the hospital for further evaluation. At time of my evaluation patient denies chest pain nausea vomiting diarrhea constipation dysuria fevers and chills on further evaluation patient appeared to be in CHF exacerbation and was admitted for further management Assessment and plan HFpEF #Transfusion associated circulatory overload (TACO) ? Presented with anasarca in the setting of TACO while getting an outpatient blood transfusion the day of admission. ? BNP 23,300 on admission with 4+ bilateral pitting edema. ? ECHO 06/08/2024 reveals LVEF 55%, severe biatrial dilatation, RVSP 40 to 45%, moderate TR. ? Patient's clinical status improved with IV diuresis. Transition to her home Bumex 1 mg daily. Continues to have peripheral edema, but stable. ? Cardiology consulted, started Farxiga 10 mg for HFpEF. ? Resume home metoprolol, Imdur. ? Medically stable for discharge. Saturating appropriately on room air. #Physical deconditioning ? Patient waxes and wanes in terms of fatigue, likely leading to hospital-acquired delirium. But there is some baseline deconditioning which would benefit from physical therapy. ? PT/OT consulted, recommended SNF with PT/OT. #Acute on chronic GI bleeds #Acute on chronic normocytic anemia ? Patient and daughter state she has had chronic GI bleeds which has been attributed to hemorrhoids. Last colonoscopy a few years ago apparently showed polyps. Apparently follows with GI outpatient. ? However, patient had a hemoglobin of 6.5 on day of admission requiring outpatient transfusion, and had bright red blood bowel movement. Currently hemodynamically stable. ? GI consulted, performed sigmoidoscopy with internal bleeding hemorrhoids banding x3. EGD unremarkable. - Hemoglobin currently 7.7, stable since yesterday. ?Started MiraLAX daily. ? Will follow-up with GI outpatient. History of atrial fibrillation Stable and rate controlled. Resume home metoprolol 50 twice daily Continue Eliquis CKD stage IV Closely monitor BMP Creatinine appears to be around baseline of around 2.5. COPD Hypertension Hypothyroidism -Resume home Imdur, levothyroxine, metoprolol, Exam Data for Last 24 hours Vital signs and Labs for Last 24 Hours: Temp Pulse Resp BP Pulse Ox O2 Del Method O2 Flow Rate 98.5 F 100 H 16 138/65 97 Room Air 3 06/09/24 12:00 06/09/24 12:00 06/09/24 12:00 06/09/24 12:00 06/09/24 12:00 06/09/24 12:00 06/09/24 09:50 Laboratory Results - last 24 hr 06/08/24 20:20: Hgb 7.4 L, Hct 26.4 L 06/09/24 06:20: WBC 6.1, RBC 2.89 L, Hgb 7.7 L, Hct 27.3 L, MCV 94.5, MCH 26.8 L, MCHC 28.4 L, RDW 17.4, Plt Count 313, MPV 7.7, Neut % (Auto) 78.7, Lymph % (Auto) 9.5 L, [place] % (Auto) 8.6, Eos % (Auto) 2.6, Baso % (Auto) 0.6, Neut # (Auto) 4.8, Lymph # (Auto) 0.6 L, [place] # (Auto) 0.5, Eos # (Auto) 0.2, Baso # (Auto) 0.0, Sodium 140, Potassium 4.4, Chloride 102, Carbon Dioxide 34 H, Anion Gap 8.4, BUN 43 H, Creatinine 2.70 H, Estimated Creat Clear 20, Estimated GFR 17 L*, Est GFR ( Amer) 20 L, Glucose 98, Calcium 8.7, Magnesium 2.0, NT-Pro-B Natriuret Pep 74061 H I & O for Last 24 hours: Intake & Output 06/06/24 06/07/24 06/08/24 06/09/24 23:59 23:59 23:59 23:59 Intake Total 620 / 620 790 / 790 Output Total 300 / 300 0 / 200 200 / 200 Balance 320 / 320 0 / 150 590 / 590 Weight 70.307 kg 70.31 kg 86 kg 88.178 kg Constitutional Constitutional: no acute distress *Routine HEENT Exam Head: Present normocephalic Eye: Present EOMI and PERRL ENT: Present mucous membranes moist *Routine Neck Exam Neck: Present supple; Absent lymphadenopathy *Routine Respiratory Exam Respiratory: Present CTA bilaterally *Routine Cardiovascular Exam Cardiovascular: Present RRR *Routine Abdominal Exam Abdominal: Present soft and normoactive bowel sounds; Absent tenderness *Routine Extremities Exam Extremities: Present edema; Absent cyanosis or clubbing Comments: 2+ pitting edema lower extremities. *Routine Skin Exam Skin: Present warm; Absent rash *Routine Neurological Exam Neurological: Present alert and oriented X3 Results Data Completed and Pending Labs on day of discharge: Labs from last 24 hours 06/09/24 06/08/24 06:20 20:20 WBC 6.1 RBC 2.89 L Hgb 7.7 L 7.4 L Hct 27.3 L 26.4 L MCV 94.5 MCH 26.8 L MCHC 28.4 L RDW 17.4 Plt Count 313 MPV 7.7 Neut % (Auto) 78.7 Lymph % (Auto) 9.5 L [place] % (Auto) 8.6 Eos % (Auto) 2.6 Baso % (Auto) 0.6 Neut # (Auto) 4.8 Lymph # (Auto) 0.6 L [place] # (Auto) 0.5 Eos # (Auto) 0.2 Baso # (Auto) 0.0 Sodium 140 Potassium 4.4 Chloride 102 Carbon Dioxide 34 H Anion Gap 8.4 BUN 43 H Creatinine 2.70 H Estimated Creat Clear 20 Estimated GFR 17 L* Est GFR ( Amer) 20 L Glucose 98 Calcium 8.7 Magnesium 2.0 NT-Pro-B Natriuret Pep 84704 H DS: Diagnosis Discharge Diagnosis (1) (HFpEF) heart failure with preserved ejection fraction: Status: Acute Code(s): I50.30 - Unspecified diastolic (congestive) heart failure (2) TACO (transfusion associated circulatory overload): Status: Acute Code(s): E87.71 - Transfusion associated circulatory overload (3) GIB (gastrointestinal bleeding): Status: Acute Code(s): K92.2 - Gastrointestinal hemorrhage, unspecified (4) CHF (congestive heart failure): Status: Acute Code(s): I50.9 - Heart failure, unspecified (5) Acute on chronic anemia: Status: Acute Code(s): D64.9 - Anemia, unspecified (6) Generalized weakness: Status: Acute Code(s): R53.1 - Weakness (7) Atrial fibrillation: Status: Chronic Code(s): I48.91 - Unspecified atrial fibrillation Qualifiers: Atrial fibrillation type: longstanding persistent Qualified Code(s): I48.11 - Longstanding persistent atrial fibrillation Meds Home Medications and Allergies Home Medications ?Medication ?Instructions ?Recorded ?Confirmed ?Type omeprazole 20 mg capsule,delayed 20 mg PO DAILY 12/01/20 06/06/24 History release apixaban 2.5 mg tablet (Eliquis) 2.5 mg PO BID AFib 12/29/22 06/06/24 History levothyroxine 25 mcg tablet 25 mcg PO DAILY 12/29/22 06/06/24 History bumetanide 1 mg tablet 1 mg PO DAILY #90 tabs 11/18/23 06/06/24 Rx isosorbide mononitrate 30 mg 30 mg PO DAILY 03/30/24 06/06/24 History tablet,extended release 24 hr paroxetine HCl 20 mg tablet 20 mg PO DAILY 03/30/24 06/06/24 History metoprolol tartrate 50 mg tablet 50 mg PO BID #60 tabs 04/02/24 06/06/24 Rx dapagliflozin propanediol 10 mg 10 mg PO DAILY 30 days #30 tabs 06/09/24 Rx tablet (Farxiga) polyethylene glycol 3350 17 gram 17 g PO DAILY #30 ea 06/09/24 Rx oral powder packet (HealthyLax) New Prescriptions to Start Prescriptions: dapagliflozin propanediol [Farxiga] Lauro Ho polyethylene glycol 3350 [HealthyLax] Lauro Ho Allergies Allergy/AdvReac Type Severity Reaction Status Date / Time cefdinir Allergy Severe Hives Verified 06/06/24 11:23 iodine [IODINE] Allergy Severe S-ANAPHYLAX Verified 06/06/24 11:23 IS Sulfa (Sulfonamide Allergy Severe I-HIVES Verified 06/06/24 11:23 Antibiotics) [SULFA (SULFONAMIDE ANTIBIOTICS)] Penicillins [PENICILLINS] Allergy Intermediate I-RASH Verified 06/06/24 11:23 codeine [CODEINE] Allergy Unknown NA-HALLUCIN Verified 06/06/24 11:23 ATIONS hydrogen peroxide Allergy Unknown Other Verified 06/06/24 11:23 Discharge Plan Disposition Patient Disposition: Xfer SNF Condition: Fair Discharge Order Discharge Orders: Discharge Order (Routine); Ordered 06/09/24 Ordered By: Lauro Ho Follow up Plan Follow up with: Shawn Lawton II, MD [Staff Physician] - 07/12/24 10:00 am Prescriptions/Medication Reconciliation: New dapagliflozin propanediol [Farxiga] 10 mg Tablet 10 mg PO DAILY 30 Days Qty: 30 0RF polyethylene glycol 3350 [HealthyLax] 17 gram Powder In Packet 17 g PO DAILY Qty: 30 0RF Continued bumetanide 1 mg tablet 1 mg PO DAILY Qty: 90 2RF levothyroxine 25 mcg tablet 25 mcg PO DAILY Eliquis 2.5 mg tablet 2.5 mg PO BID isosorbide mononitrate 30 mg tablet extended release 24 hr 30 mg PO DAILY paroxetine HCl 20 mg tablet 20 mg PO DAILY metoprolol tartrate 50 mg tablet 50 mg PO BID Qty: 60 0RF omeprazole 20 MG capsule,delayed release(DR/EC) 20 mg PO DAILY Problem Reconciliation Problems Reviewed?: Yes Patient Discharge Instructions ACTIVITY: Continue current activity DIET: continue same diet Patient Instructions: Anemia, DI for Heart Failure Print Language: Liberian Providers Primary Care Provider: Provider,Referral Admit Provider: Lauro Ho Attending Provider: Lauro Ho
--- NOTE | 2024-06-09 15:00 | PC.NURSE ---
Daughter called for patient transport and iv removed.
--- NOTE | 2024-06-09 15:45 | PC.NURSE ---
Report called to [facility].
--- OUTSIDE RECORDS SUMMARY | 2024-06-20 11:23 | XMS_ITS ---
Author Organization [facility] Address [address] [place] [address] Care Team Providers Care Barrel Roller Operator Name Role Phone Jeremy Pride Primary Care Provider [phone] Encounters Encounter Location Date Provider Diagnosis [facility] [address] [place] [address] 06/06/2024 Jeremy Pride Plan Of Treatment No Information Progress Notes * Aileen RANDHAWA CDOB:[birth year] (88 yo F)Acc No.[id number]:06/06/2024 Patient:?Aileen RANDHAWA :1935???Age:88 Y???Sex:Female Address:[address] [place], [place] [address] [address] * true * Date:? Generated for Printi ng/Fagiovannyg/eTransmitting on:?06/20/2024 11:23 AM EDT
--- OUTSIDE RECORDS SUMMARY | 2024-06-20 11:23 | XMS_ITS ---
Author Organization [facility] Address [address] [place] [address] Care Team Providers Care Senior Telecommunications Specialist Name Role Phone Jeremy Pride Primary Care Provider [phone] REASON FOR VISIT Shortness of Breath Encounters Encounter Location Date Provider Diagnosis [facility] [address] [place] [address] 05/15/2024 Jeremy Pride Plan Of Treatment No Information Progress Notes * Aileen RANDHAWA CDOB:[birth year] (88 yo F)Acc No.[id number]:05/15/2024 Patient:?Aileen RANDHAWA :1935???Age:88 Y???Sex:Female Address:[address] [place], [place] [address] [address] * true * Date:? Generated for Printi lilliam/Laura/eTransmitting on:?06/20/2024 11:23 AM EDT
--- OUTSIDE RECORDS SUMMARY | 2024-06-20 11:23 | XMS_ITS ---
Author Organization [facility] Address [address] [place] [address] Care Team Providers Care Animal Geneticist Name Role Phone Jeremy Pride Primary Care Provider [phone] Allergies Allergen (clinical drug ingredient) Drug/Non Drug Allergy documented on EMR Reaction Allergy Type Onset Date Status iodine (uncoded) Unknown Allergy Act jorge sulfa (uncoded) Unknown Allergy Acti ve x-ray contrast (uncoded) Unknown Allergy Active Penicillin Unknown Drug Allergy Active codeine Codeine Unknown Drug Allergy Active cefdinir cefdinir hives Drug Allergy Active REASON FOR VISIT NH f/u Medications Medication SIG (Take, Route, Frequency, Duration) Notes Start Date End Date Status isosorbide mononitrate 30 mg 1 tab(s) orally once a day for 30 day(s) Active bumetanide 1 mg 1 tab(s) orally once a day for 30 day(s) Active omeprazole 20 mg 1 cap(s) orally once a day for 90 Active carvedilol 12.5 mg 1 tab(s) orally 2 ti mes a day for 90 days Active Azelastine Hydrochloride Nasal 137 mcg/inh 2 spray(s) intranasally 2 times a day for 30 days 08/24/2023 Active Vitamin D3 1000 intl units 1 tab(s) oral ly once a day for 30 day(s) Active Tylenol 500 mg 1 tab(s) orally Q6H prn Active PARoxetine 20 mg 1 tab(s) orally once a day for 90 days Active digoxin 125 mcg (0.125 mg) 1 tab(s) oral ly once a day for 30 days 03/18/2023 Active ICaps AREDS Antioxidant Multiple Vitamins and Minerals as directed orally for 30 day(s) Active 3cc syringes and 23 gauge needles use weekly for B12 injections for 30 days 03/01/2024 Active cyanocobalamin 1000 mcg/mL 1ml intramusc ularly once a week for 30 days 03/01/2024 Active Oxygen Concentrator (portable O2) as directed prn Active levothyroxine 25 mcg (0.025 mg) 1 tab(s) orally once a day for 90 days Active Social History Tobacco Use: Social History Observation Description Date Details (start date - stop date) Former Smoker NA - NA Smoking: Question Answer Notes Are you a: former smoker How long has it been since you last smoked? > 10 years Vital Signs Temperature 98 degrees Fahrenheit 05/20/2024 Oximetry 96 05/20/2024 Heart Rate 88 /min 05/20/2024 Blood pressure systolic 126 mm Hg 05/20/20 24 Blood pressure diastolic 80 mm Hg 024 Height 65.5 in 05/20/2024 Weight 200 lbs 05/20/2024 BMI 32.77 kg/m2 05/20/2024 Encounters Encounter Location Date Provider Diagnosis [facility] [address] [place] [id number] 05/20/2024 Jreemy Pride Hypertensive heart disease with heart failure I11.0 ; Atrial fibrillation I48.91 ; History of anemia Z86.2 and Routine medical exam Z00.00 Assessments Encounter Date Diagnosis (ICD Code) Assessment Notes Treatment Notes Treatment Clinical Notes 05/20/2024 Hypertensive heart disease with heart failure (ICD-10 - I11.0) Overall patient's fluid status remains a little bit overloaded. We will try Zaroxolyn 5 mg daily for the next week or so. We have labs scheduled for May later in the month. Kidney function remains stable, reduced, at stage IV chronic kidney disease. 05/20/2024 Atrial fibrillation (ICD-10 - I48.91) Rate controlled, on DOAC 05/20/2024 History of anemia (ICD-10 - Z86.2) No evidence of GI bleeding on DOAC. Hemoglobin has remained stable. 05/20/2024 Routine medical exam (ICD-10 - Z00.00) Patient has significant functional decline and some cognitive impairment so screening not done. Overall memory loss has been stable. No indication for changes in plan. No recent falls. Denies depression issues. Up-to-date with pneumonia vaccine, [facility] No history of diabetes. Otherwise up-to-date with healthcare maintenance but is aged out of cancer screening. Plan Of Treatment Treatment Notes Assessment Notes Hypertensive heart disease w ith heart failure Overall patient's fluid status remains a little bit overloaded. We will try Zaroxolyn 5 mg daily for the next week or so. We have labs scheduled for May later in the month. Kidney function remains stable, reduced, at stage IV chronic kidney disease. Atrial fibrillation Rate controlled, on DOAC History of anemia No evidence of GI bleeding on DOAC. Hemoglobin has remained stable. Routine medical exam Patient has significant functional decline and some cognitive impairment so screening not done. Overall memory loss has been stable. No indication for changes in plan. No recent falls. Denies depression issues. Up-to-date with pneumonia vaccine, [facility]. No history of diabetes. Otherwise up-to-date with healthcare maintenance but is aged out of cancer screening. Next Appt Details Follow Up: prn, Reason: Progress Notes * Aileen RANDHAWA CDOB:[birth year] (88 yo F)Acc No.[id number]:05/20/2024 Patient:?Aileen RANDHAWA Provider:?Jeremy Pride MD :[id number]???Age:88 Y???Sex:Female D ate:05/20/2024 Address:[address] [place] [address] [place], [id number] Subjective: * Chief Complaints: * ???1. NH f/u. * HPI: ???gen:? I evaluated patient at the [facility] on 05/20/2024. I reviewed her healthcare maintenance/screening issues for her [facility] practitioner assessment form as noted below. I also reviewed her fluid status and previous labs. Overall patient continues to have some fluid in her legs but her dyspnea has improved. She continues to be on aggressive diuretics. Has returned to taking blood thinners because of her history of A-fib, and we have been closely monitored her blood counts. She has no symptoms of GI bleeding. * ROS:?FUNCTIONAL STATUS:?ADLS?Impaired ADL/IADL - see care planning in facility.? * Medical History:?Hypertensio n, Afib, Aortic sclerosis w/ murmur, CAD, Iron deficiency Anemia with transfusions, CKD, stage 3, Osteoarthriitis of knee, Vitamin B 12 deficiency, HLD, GERD, Back arthritis, Pneumonia, Allergic rhinitis, Breast cancer, s/p tamoxifen for 5 years, Vitamin D Def, Pneumonia. * Surgical History:?gallbladde r , lumpectomy , EGD and colonoscopy - NML 2014, left wrist fx repair 07/2017, left knee replacement 02/2018. * Hospitalization/Major Diagno stic Procedure:?Anemia 04/2024, fall 05/2017, [facility]-fingernail 03/2020. * Family History:?Father: dece ased.?Mother: .?Paternal Grand Father: .?Paternal Grand Mother: .?Maternal Grand Father: .?Maternal Grand Mother: .?Children: alive.?1 daughter(s) . .? * Social History:?Smoking?Are you a:?former smoker,?How long has it been since you last smoked??> 10 years.?Recreational drug use: no. New since last visit: none. Home smoke detector use: yes. Caffeine: yes, 1-2 sodas daily. Living Will: No. Alcohol: no. Sexually active: no. Travel outside [place]: no. Occup. exposure: none. [facility] resident since spring [facility]-intends to stay in [facility] for the time being. Walks with a Wheeled walker, Has no living well but daughter is her healthcare surrogate. * Medications:?Taking Oxygen C oncentrator (portable O2) as directed , Notes to Pharmacist: prn, Taking Tylenol 500 mg tablet 1 tab(s) orally Q6H prn , Taking Vitamin D3 1000 intl units tablet 1 tab(s) orally once a day , Taking ICaps AREDS Antioxidant Multiple Vitamins and Minerals tablet as directed orally , Taking digoxin 125 mcg (0.125 mg) tablet 1 tab(s) orally once a day , Taking PARoxetine 20 mg tablet 1 tab(s) orally once a day , Taking Azelastine Hydrochloride Nasal 137 mcg/inh spray 2 spray(s) intranasally 2 times a day , Taking omeprazole 20 mg delayed release capsule 1 cap(s) orally once a day , Taking bumetanide 1 mg tablet 1 tab(s) orally once a day , Taking isosorbide mononitrate 30 mg tablet, extended release 1 tab(s) orally once a day , Taking carvedilol 12.5 mg tablet 1 tab(s) orally 2 times a day , Taking levothyroxine 25 mcg (0.025 mg) tablet 1 tab(s) orally once a day , Taking cyanocobalamin 1000 mcg/mL solution 1ml intramuscularly once a week , Taking 3cc syringes and 23 gauge needles use weekly for B12 injections * Allergies:?Penicillin, Codei ne, sulfa, iodine, x-ray contrast, cefdinir: hives. Objective: * Vitals:?Nurse: PAOLO, Pain: 0, Temp: 98, Pulse O2: 96, RR: 18, HR: 88, BP: 126/80, Ht: 65.5, Wt: 200, BMI:32.77. * Examination: ???General Examination: ?General?Pleasant and Cooperative, NAD on RA,.?Heart:?Irregularly irregular,.?Lungs:?LCTAB, No wheezes, crackles or rhonchi, Good air movement,.?Abdomen:?Soft, NTND, BSNA, No organomegaly or peritoneal signs..?Skin:?without acute rashes.?Extremities:?Limited range of motion because of her arthritis, relies on her rollator to walk.? Has lymphedema 1+ up to the mid miguel but no brawny skin breakdown or heat..?Psych?Normal Mood/Affect.? Assessment: * Assessment: 1.?Hypertensive heart diseas e with heart failure - I11.0 (Primary)???2.?Atrial fibrillation - I48.91???3.?History of anemia - Z86.2???4.?Routine medical exam - Z00.00??? Plan: * Treatment: 2.?Atrial fibrillation? Notes: Rate controlled, on DOAC?? 3.?History of anemia? Notes: No evidence of GI bleeding on DOAC. Hemoglobin has remained stable. ?? 4.?Routine medical exam? Notes: Patient has significant functional decline and some cognitive impairment so screening not done. Overall memory loss has been stable. No indication for changes in plan. No recent falls. Denies depression issues. Up-to-date with pneumonia vaccine, [facility]. No history of diabetes. Otherwise up-to-date with healthcare maintenance but is aged out of cancer screening.?? * Procedure Codes:?28746 HEALT H RISK [id number] * Preventive Medicine:? ??DANNY Screening:?Falls: Future screening for fall risks?Have you had two or more falls in the past year??No,?Have you had any falls with injury in the past year??No.? * Follow Up:?prn * * Sign off status: Completed true * Provider:?Jeremy Pride MD Date :?05/20/2024 Generated for Eliei lilliam/Laura/eTransmitting on:?06/20/2024 11:23 AM EDT History and Physical Notes * Examination Category Sub-Category Detail Notes General Examination Heart: Irregularly irregular, Lungs: LCTAB, No wheezes, c rackles or rhonchi, Good air movement, Abdomen: Soft, NTND, BSNA, No organomegaly or peritoneal signs. Extremities: Limited range of mot ion because of her arthritis, relies on her rollator to walk. Has lymphedema 1+ up to the mid miguel but no brawny skin breakdown or heat. Skin: without acute rashes General Pleasant and Coopera tive, NAD on RA, Psych Normal Mood/Affect
--- OUTSIDE RECORDS SUMMARY | 2024-06-20 11:24 | XMS_ITS | Patient Health Record ---
Author Organization [facility] Address [address] [place] [address] Care Team Providers Care Body Sander Name Role Phone Jeremy Pride Primary Care Provider [phone] Allergies Allergen (clinical drug ingredient) Drug/Non Drug Allergy documented on EMR Reaction Allergy Type Onset Date Status iodine (uncoded) Unknown Allergy Act jorge sulfa (uncoded) Unknown Allergy Acti ve x-ray contrast (uncoded) Unknown Allergy Active Penicillin Unknown Drug Allergy Active codeine Codeine Unknown Drug Allergy Active cefdinir cefdinir hives Drug Allergy Active Medications Medication SIG (Take, Route, Frequency, Duration) Notes Start Date End Date Status isosorbide mononitrate 30 mg 1 tab(s) orally once a day for 30 day(s) Active bumetanide 1 mg 1 tab(s) orally once a day for 30 day(s) Active omeprazole 20 mg 1 cap(s) orally once a day for 90 Active Vitamin D3 1000 intl units 1 tab(s) oral ly once a day for 30 day(s) Active 3cc syringes and 23 gauge needles use weekly for B12 injections for 30 days 03/01/2024 Active Tylenol 500 mg 1 tab(s) orally Q6H prn Active cyanocobalamin 1000 mcg/mL 1ml intramusc ularly once a week for 30 days 03/01/2024 Active Oxygen Concentrator (portable O2) as directed prn Active levothyroxine 25 mcg (0.025 mg) 1 tab(s) orally once a day for 90 days Active carvedilol 12.5 mg 1 tab(s) orally 2 ti mes a day for 90 days Active Azelastine Hydrochloride Nasal 137 mcg/inh 2 spray(s) intranasally 2 times a day for 30 days 08/24/2023 Active PARoxetine 20 mg 1 tab(s) orally once a day for 90 days Active digoxin 125 mcg (0.125 mg) 1 tab(s) oral ly once a day for 30 days 03/18/2023 Active ICaps AREDS Antioxidant Multiple Vitamins and Minerals as directed orally for 30 day(s) Active Immunizations Vaccine Route Administration Date Status Comme nts Pneumovax 23 IM Intramuscular 11/14/2015 Administered Pneumovax-23 (pneumococccal vaccine polyvalent)2 years or older Unknown 05/05/2013 Administered Prevnar PCV-13 (Pneumococcal conjugate 13) IM Intramuscular 05/20/2017 Administered Social History Tobacco Use: Social History Observation Description Date Details (start date - stop date) Former Smoker NA - NA Smoking: Question Answer Notes Are you a: former smoker How long has it been since you last smoked? > 10 years Problems Problem Type SNOMED Code ICD Code Onset Dates Problem Status W/U Status Risk Notes Problem Hypothyroidism (13545177) Hypothyroidism, unspecified (E03.9) Active confirmed Problem Anxiety disorder (699293804) Anxiety disorder, unspecified (F41.9) Active confirmed Problem Transient ischemic attack (780676016) Other transient cerebral ischemic attacks and related syndromes (G45.8) Active confirmed Problem Hypertensive heart failure (32242174) Hypertensive heart disease with heart failure (I11.0) Active confirmed Problem Chronic kidney disease due to hypertension (265086036081162) Hypertensive chronic kidney disease with stage 1 through stage 4 chronic kidney disease, or unspecified chronic kidney disease (I12.9) Active confirmed Problem Hypertensive heart AND chronic kidney disease with congestive heart failure (45389732253371) Hypertensive heart and chronic kidney disease with heart failure and stage 1 through stage 4 chronic kidney disease, or unspecified chronic kidney disease (I13.0) Active confirmed Problem 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 (477727637258441) 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) Active confirmed Problem Acute on chronic diastolic heart failure (929301335) Acute on chronic diastolic (congestive) heart failure (I50.33) Active confirmed Problem Heart failure (54521497) Heart failure, unspecified (I50.9) Active confirmed Problem 49409819 Chronic rhinitis (J31.0) Active confirmed Problem Lwzcg-yk-lmqwrdk hypoxemic respiratory failure (59501355256950924) Acute and chronic respiratory failure with hypoxia (J96.21) Active confirmed Problem Chronic kidney disease (890565779) Chronic kidney disease, unspecified (N18.9) Active confirmed Problem Long-term current use of anticoagulant (871513350) 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) Active confirmed Problem Allergy to penicillin (45649522) Allergy status to penicillin (Z88.0) Active confirmed Problem 784915013 Vitamin B12 deficiency (E53.8) Active confirmed Problem Mixed anxiety and depressive disorder (641647403) Depression with anxiety (F41.8) Active confirmed Problem Hypothyroidism (17317713) Hypothyroidism (E03.9) Active confirmed Problem 97713186 Vitamin D deficiency (E55.9) Active confirmed Problem Hyperlipidemia (38930600) Hyperlipidemia (E78.5) Active confirmed Problem 24740565 HTN (hypertension), benign (I10) Active confirmed Problem Diverticulitis (96948774) Diverticulitis (K57.92) Active confirmed Problem Atrial fibrillation (20236026) Atrial fibrillation (I48.91) Active confirmed Problem 089044422 BMI 31.0-31.9,adult (Z68.31) Active confirmed Problem Acute on chronic systolic heart failure (039193444) Acute on chronic clinical systolic heart failure (I50.23) Active confirmed Problem 310619967 Gastroesophageal reflux disease without esophagitis (K21.9) Active confirmed Problem 3786888159938 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 angina pectoris (I25.10) Active confirmed Problem 094182367 Primary osteoarthritis of left knee (M17.12) Active confirmed Problem 710787536 Frequent falls (R29.6) Active confirmed Problem Heart failure (69703273) Chronic congestive heart failure, unspecified congestive heart failure type (I50.9) Active confirmed Problem 05263541530569014 Lymphedema of both lower extremities (I89.0) Active confirmed Problem 00305376 Chronic bronchitis, unspecified chronic bronchitis type (J42) Active confirmed Problem 405813957 History of anemi a (Z86.2) Active confirmed Problem Hypothyroidism (80359700) Hypothyroidism, unspecified hypothyroidism type (E03.9) Active confirmed Problem 719633131943479 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) Active confirmed Problem 355489044 History of breas t cancer (Z85.3) Active confirmed Problem Long-term current use of anticoagulant (550433930) correction current use of anticoagulant (Z79.01) Active confirmed Problem Acute on chronic diastolic heart failure (271867578) Acute on chronic diastolic heart failure (I50.33) Active confirmed Problem Chronic obstructive pulmonary disease (32981906) Chronic obstructive pulmonary disease (J44.9) Active confirmed Problem Atrial fibrillation (39493610) AF (paroxysmal atrial fibrillation) (I48.0) Active confirmed Problem Hypothyroidism (56148236) Unspecified hypothyroidism (E03.9) Active confirmed Problem Dependence on supplemental oxygen (438625438177) Oxygen dependent (Z99.81) Active confirmed Problem Long-term current use of anticoagulant (005791301) Anticoagulant long-term use (Z79.01) Active confirmed Problem Hypertensive emergency (311054515348392) Hypertensive emergency (I16.1) Active confirmed Problem 870493023 CKD (chronic kidney disease), stage IV (N18.4) Active confirmed Problem 87871621 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) Active confirmed Problem Allergy to sulfa drugs (95143160) Allergy to sulfa drugs (Z88.2) Active confirmed Problem History of right hip replacement (3695171712672290) History of right hip replacement (Z96.641) Active confirmed Problem 116710898 Arterial insufficiency (I77.1) Active confirmed Problem 131000315 Anemia due to GI blood loss (D50.0) Active confirmed Problem Chronic obstructive pulmonary disease (37232049) Advanced COPD (J44.9) Active confirmed Problem Betaxolol allergy (434783374) Betaxolol allergy (Z88.8) Active confirmed Problem Longstanding persistent atrial fibrillation (930250682) Longstanding persistent atrial fibrillation (I48.11) Active confirmed Problem Chronic atrial fibrillation (disorder) (929962383) Chronic atrial fibrillation, unspecified (I48.20) Active confirmed Problem Chronic obstructive pulmonary disease with acute lower respiratory infection (284096738) Chronic obstructive pulmonary disease with (acute) lower respiratory infection (J44.0) Active confirmed Problem Chronic atrial fibrillation (720073783) Chronic atrial fibrillation (I48.20) Active confirmed Problem 554200091 Chronic heart failure with preserved ejection fraction (I50.32) Active confirmed Problem Allergy status t o other drugs, medicaments and biological substances (Z88.8) Active confirmed Vital Signs Heart Rate 88 /min 05/20/2024 Temperature 98 degrees Fahrenheit 05/20/2024 Oximetry 96 05/20/2024 Blood pressure diastolic 80 mm Hg 05/20/2024 Height 65.5 in 05/20/2024 Blood pressure systolic 126 mm Hg 05/20/2024 Weight 200 lbs 05/20/2024 BMI 32.77 kg/m2 05/20/2024 Encounters Encounter Location Date Provider Diagnosis [facility] [address] [address] 08/24/2023 Jeremy Pride 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 angina pectoris I25.10 ; Vitamin B12 deficiency E53.8 ; History of anemia Z86.2 ; Chronic kidney disease, stage IV (severe) N18.4 and Chronic rhinitis J31.0 [facility] [address] [address] 11/16/2023 Jeremy Pride History of anemia Z86.2 ; Vitamin B12 deficiency E53.8 ; Vitamin D deficiency E55.9 ; 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 angina pectoris I25.10 ; Paroxysmal a-fib I48.0 ; Chronic combined systolic and diastolic congestive heart failure I50.42 ; Other fatigue R53.83 and Orthostasis I95.1 [facility] [address] [address] 02/29/2024 Jeremy Bigg Vitamin B12 deficien cy E53.8 ; History of anemia Z86.2 ; 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 angina pectoris I25.10 ; Vitamin D deficiency E55.9 and Frequent falls R29.[address] [address] 03/30/2024 Jeremy Charisseclaudia Orthostatic hypotension I95.1 [address] [place] [address] 04/08/2024 Jeremy Pride Anemia due to GI blo od loss D50.0 ; Atrial fibrillation I48.91 ; Hypothyroidism E03.9 ; CKD (chronic kidney disease), stage IV N18.4 and Routine medical exam Z00.00 [address] [place] [address] 04/23/2024 Jeremy Besclaudia Chronic heart failur e with preserved ejection fraction I50.32 ; HTN (hypertension), benign I10 ; Atrial fibrillation I48.91 ; 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.01 ; Acute and chronic respiratory failure with hypoxia J96.21 ; Anemia due to GI blood loss D50.0 ; CKD (chronic kidney disease), stage IV N18.4 and Routine medical exam Z00.[address] [place] [address] 05/20/2024 Jeremylucio Pride Hypertensive heart disease with heart failure I11.0 ; Atrial fibrillation I48.91 ; History of anemia Z86.2 and Routine medical exam Z00.00 [facility] [address] [place] [address] 02/04/2024 Jeremy Besson [facility] [address] [place] [address] 02/14/2024 Jeremy Besson [facility] [address] [place] [address] 03/01/2024 Jeremy Besson [facility] [address] [place] [address] 04/15/2024 Jeremy Besson [facility] [address] [place] [address] 04/26/2024 Jeremy Besson [facility] [address] [place] [address] 05/09/2024 Jeremy Besson [facility] [address] [place] [address] 05/12/2024 Jeremy Besson [facility] [address] [place] [address] 05/15/2024 Jeremy Besson [facility] [address] [place] [address] 06/06/2024 Jeremy Besson Assessments Encounter Date Diagnosis (ICD Code) Assessment Notes Treat ment Notes Treatment Clinical Notes 08/24/2023 Vitamin B12 deficiency (ICD-10 - E53.8) 08/24/2023 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 No changes in plans. Check labs to monitor anemia issues to make sure were not putting undue burden on her myocardium. I will review all these labs personally. Check kidney disease labs as noted below. 11/16/2023 Vitamin B12 deficiency (ICD-10 - E53.8) 11/16/2023 History of anemia (ICD-10 - Z86.2) 02/29/2024 Vitamin B12 deficiency (ICD-10 - E53.8) Multiple reasons for symptoms of dysthymia, fatigue and dyspnea. Please see labs ordered below. Please note I will review all labs personally. High likelihood patient will need transfusion. 02/29/2024 History of anemia (ICD-10 - Z86.2) 03/30/2024 Orthostatic hypotension (ICD-10 - I95.1) Given abnormal vital signs, hypotension, low oxygen saturations and malaise patient needs to be evaluated in ER for high risk of sepsis or heart failure exacerbation. Patient sent to the ER with her daughter who is an EMT. I personally called ER and gave report on the patient who will be arriving there is 04/08/2024 Atrial fibrillation (ICD-10 - I48.91) See notes above-fairly difficult decision given the rock and a hard place situation regarding ongoing GI bleeding versus high risk of atrial fibrillation stroke given her high [id number] score 04/23/2024 HTN (hypertension), benign (ICD-10 - I10) Blood pressure stable, watch with increased diuresis 04/08/2024 Anemia due to GI blood loss (ICD-10 - D50.0) I have ordered labs for next week. At that point will discuss with daughter whether or not we think restarting DOAC would be a reasonable idea or possibly doing different dose, etc. Currently patient feels better, doing well with PT, 04/23/2024 Chronic heart failure with preserved ejection fraction (ICD-10 - I50.32) Seems to be in a mild exacerbation, has gained 10 pounds since admission and fluid overload noted. Talked with nursing staff. Increase Bumex to twice daily for a week and then back to daily. Will check electrolytes next Wednesday, a week from tomorrow 05/20/2024 Hypertensive heart disease with heart failure [...] bleeding on DOAC. Hemoglobin has remained stable. 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 I will review personally. 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 We will continue low-dose Eliquis. 05/20/2024 Routine medical exam (ICD-10 - Z00.00) Patient has significant functional decline and some cognitive impairment so screening not done. Overall memory loss has been stable. No indication for changes in plan. No recent falls. Denies depression issues. Up-to-date with pneumonia vaccine, will receive flu vaccine this [facility] the [facility]. No history of diabetes. Otherwise up-to-date with healthcare maintenance but is aged out of cancer screening. 04/23/2024 Acute and chronic respiratory failure with hypoxia (ICD-10 - J96.21) On oxygen, try to improve cardiopulmonary status with increased diuresis 02/29/2024 Frequent falls (ICD-10 - R29.6) 04/08/2024 Routine medical exam (ICD-10 - Z00.00) Given patient''s advanced age is not a candidate for typical healthcare screening such as colonoscopy. No recent falls. Up-to-date with vaccinations. Nonsmoker. Healthcare surrogate is daughter. Poor functional status. No cognitive impairment screening given her history of mild dementia. 11/16/2023 Paroxysmal a-fib (ICD-10 - I48.0) -Controlled, stable today -Continue DOAC 08/24/2023 Chronic rhinitis (ICD-10 - J31.0) Sounds like vasomotor rhinitis, trial of azelastine 11/16/2023 Chronic combined systolic and diastolic congestive heart failure (ICD-10 - I50.42) -1+ pitting edema on exam of BLE, otherwise clinically eurvolemic -Continue Bumex daily 04/23/2024 Anemia due to GI blood loss (ICD-10 - D50.0) See notes above, have scheduled CBCs every 2 weeks. No stigmata of bleeding 04/23/2024 CKD (chronic kidney disease), stage IV (ICD-10 - N18.4) Watch kidney disease closely with every other week BMP while on extra diuretics 11/16/2023 Other fatigue (ICD-10 - R53.83) -Patient feeling more fatigued for the last week along with an episode of vomiting last week. -Last Hgb 08/2023 was 7.8, denies bleeding -Will check CBC, vit D, B12, ferritin, CMP, Mg 04/23/2024 Routine medical exam (ICD-10 - Z00.00) Aged out of cancer screening. Has had pneumonia vaccines. Declines flu shots. Fall risk ameliorated in the detention. Lifelong non-smoker. Daughter is healthcare surrogate. 11/16/2023 Orthostasis (ICD-10 - I95.1) -PAtient reports lightheadedness with standing. Not drinking enough fluids at home. Anemia may also be contributing -Counseled patient on hydrating well, wear compression socks -Will check labs as above. Plan Of Treatment Pending Test Test Name Order Date X ray : Chest 02/08/2018 MRI : Lumbosacral Spine 12/09/2011 N-B12 level 08/24/2013 N-Magnesium 08/24/2013 Urinalysis 02/07/2013 N-Phosphorus 08/24/2013 Colonoscopy 02/27/2009 N-Lipid Panel 08/24/2013 Echocardiogram 06/04/2014 Cardiolite GXT 06/04/2014 Pulmonary Function Tests with pre and po st Neb tx 05/06/2010 N-cmp 08/24/2013 Ultrasound : Gallbladder 03/08/2008 Mammogram : Bilateral 11/07/2019 Ankle/Brachial Index--Segmental BPs 03/2018 Z-[id number]-iztezahaordxrb D 08/24/2013 N-CBC with diff 08/24/2013 H-HEMOGLOBIN 06/05/2014 H-HEMATOCRIT 06/05/2014 C-CBC 06/15/2014 C-CBC 06/04/2014 C-CMP 06/04/2014 C-LIPID PANEL 06/04/2014 C-CARDIAC ENZYMES 06/04/2014 C-BNP 06/04/2014 CBC With Differential/Platelet 8 Hgb A1c with MBG Estimation 02/08/2018 PTT 02/08/2018 Basic Metabolic Panel (8) 02/08/2018 Prothrombin Time (PT) 02/08/2018 Physical Therapy : Lymphedema 05/12/2018 M-Complete Blood Count Auto Diff 018 M-Complete Blood Count Auto Diff 021 M-PT/PTT 05/03/2018 M-Comprehensive Metabolic Panel 05/03/20 18 M-Comprehensive Metabolic Panel 03/06/20 21 M-Magnesium 05/03/2018 M-Magnesium 03/06/2021 M-BNP 03/06/2021 M-Vitamin B12 02/29/2024 M-Vitamin D 25 Hydroxy 02/29/2024 Insurance Providers Payer Name Payer Address Payer Phone Subscriber Number Group Number Insured Name Patient Relationship to Insured Coverage Start Date Coverage End Date [employer] DUAL [address] [address] [place] [address] [id number] Aileen Bassett Self - patient is the insured 0 Medications Administered Medication Instructions Date of Administration Dosage Notes Cyanocobalamin/B-12 Pt's Own Medication 06/12/2013 Cyanocobalamin/B-12 Pt's Own Medication 06/19/2013 Cyanocobalamin/B-12 Pt's Own Medication 07/10/2013 Cyanocobalamin/B-12 Pt's Own Medication 07/24/2013 Cyanocobalamin/B-12 Pt's Own Medication 07/31/2013 Cyanocobalamin/B-12 Pt's Own Medication 08/07/2013 Cyanocobalamin/B-12 Pt's Own Medication 11/25/2015 1 mL Kenalog 40mg 08/26/2018 40 mg Kenalog 11/04/2015 1 mL Medical (General) History Medical History History ICD Code Hypertension Afib aortic sclerosis w/ murmur CAD Iron deficiency Anemia with transfusions CKD, stage 3 Osteoarthriitis of knee Vitamin B 12 deficiency HLD GERD Back arthritis Pneumonia allergic rhinitis Breast cancer, s/p tamoxifen for 5 years Vitamin D Def pneumonia Surgical History Surgery Date(Month/Year) gallbladder lumpectomy EGD and colonoscopy - NML 2014 left wrist fx repair 07/2017 left knee replacement 02/2018 Hospitalization History Reason Date(Month/Year) [facility]-fingernail 03/2020 fall 05/2017 Anemia 04/2024
== END 2024-06-09 16:27 | DRG 987 ==
LOC: ER 15:54 → 2ND 18:18
PROVIDERS: Emergency Medicine; Internal Medicine Gastroenterology; Physician Assistant; Admitting Provider Student in an Organized Health Care Education/Training Program; Emergency Provider Emergency Medicine; Visit Provider Student in an Organized Health Care Education/Training Program
PROC: 0DJ08ZZ Inspection of Upper Intestinal Tract, Via Natural or Artificial Opening Endoscopic (ICD-10-PCS; CPT 43235; principal; 2024-06-08 10:00)
DX: I13.0 Hypertensive heart and chronic kidney disease with heart failure and stage 1 through stage 4 chronic kidney disease, or unspecified chronic kidney disease (principal); I48.11 Longstanding persistent atrial fibrillation; N18.4 Chronic kidney disease, stage 4 (severe); J96.11 Chronic respiratory failure with hypoxia; D62 Acute posthemorrhagic anemia; E87.71 Transfusion associated circulatory overload; I50.33 Acute on chronic diastolic (congestive) heart failure; N17.9 Acute kidney failure, unspecified; K64.2 Third degree hemorrhoids; I25.10 Atherosclerotic heart disease of native coronary artery without angina pectoris; Z79.01 Long term (current) use of anticoagulants; Z79.899 Other long term (current) drug therapy; E03.9 Hypothyroidism, unspecified
CPT/HCPCS: 36415; 36430; 71045; 80048; 80053; 83735; 83880; 84484; 85014; 85018; 85025; 86803; 86850; 87389; 88305; 93005; 93306; 97162; 97165; 97530; 99291; C1726; C1889; J1939; J2405; P9016

== ENCOUNTER 2024-06-12 05:28 | Inpatient (IN) | payer MEDICARE, SELFPAY ==
[2024-06-12] VITALS (16 sets, daily range): BP systolic 122–181; BP diastolic 80–120; PULSE 79–126; RESP 12–41; TEMP 36.6–37.6; O2SAT 95–99; BMI 30.7; BMI 31.6
--- NOTE | 2024-06-12 05:08 | PC.NURSE ---
[facility] attempted to call report, however staff was unable to hear any details d/t poor reception manager.
--- NOTE | 2024-06-12 05:38 | CT_ITS ---
PROCEDURE INFORMATION: Exam: CT Head Without Contrast Exam date and time: 06/12/2024 6:03 AM Age: 88 years old Clinical indication: Altered mental status/memory loss; Additional info: AMS TECHNIQUE: Imaging protocol: Computed tomography of the head without contrast. Radiation optimization: All CT scans at this facility use at least one of these dose optimization techniques: automated exposure control; mA and/or kV adjustment per patient size (includes targeted exams where dose is matched to clinical indication); or iterative reconstruction. COMPARISON: CT HEAD/BRAIN WO CON 11/04/2021 11:08 PM FINDINGS: Brain: No hemorrhage. No mass effect. White matter microvascular ischemic change. Unchanged 5 mm chronic lacunar infarct of the left cerebellar hemisphere. Unchanged 5 mm chronic lacunar infarct just below the left caudate head. Generalized cerebral volume loss. Intracranial atherosclerotic calcification. Cerebral ventricles: No ventriculomegaly. Paranasal sinuses: Visualized sinuses are unremarkable. No fluid levels. Mastoid air cells: Visualized mastoid air cells are well aerated. Bones: No acute fracture. Soft tissues: Multiple bifrontal scalp dermal nodules appear larger in size relative to the prior CT head exam. IMPRESSION: 1. No CT evidence of an acute intracranial abnormality. 2. White matter microvascular ischemic change. Unchanged chronic lacunar infarcts of the left frontal lobe and left cerebellar hemisphere. 3. Multiple bifrontal scalp dermal nodules appear larger in size relative to the prior CT head exam. Dermatology follow-up may be helpful.
--- NOTE | 2024-06-12 05:42 | [facility].EDCP ---
Discharge Plan Disposition Chief Complaint: Weakness Prescriptions Prescriptions: No Action bumetanide 1 mg tablet 1 mg PO DAILY Qty: 90 2RF levothyroxine 25 mcg tablet 25 mcg PO DAILY Eliquis 2.5 mg tablet 2.5 mg PO BID isosorbide mononitrate 30 mg tablet extended release 24 hr 30 mg PO DAILY paroxetine HCl 20 mg tablet 20 mg PO DAILY metoprolol tartrate 50 mg tablet 50 mg PO BID Qty: 60 0RF dapagliflozin propanediol [Farxiga] 10 mg Tablet 10 mg PO DAILY 30 Days Qty: 30 0RF polyethylene glycol 3350 [HealthyLax] 17 gram Powder In Packet 17 g PO DAILY Qty: 30 0RF omeprazole 20 MG capsule,delayed release(DR/EC) 20 mg PO DAILY Referrals Follow up/Referrals: Jeremy Pride MD [Primary Care Provider] - See instructions Clinical Impressions Clinical Impression: Generalized weakness, Cough, Acute respiratory acidosis, Acidosis, lactic CKD (chronic kidney disease) Qualifiers: Chronic kidney disease stage: stage 4 (severe) Qualified Code(s): N18.4 - Chronic kidney disease, stage 4 (severe) Print Language Print Language: Burkinan Discharge ED Provider: Marlo Deras HPI <Jose Medeiros MD - Last Filed: 06/12/24 06:49> General Chief Complaint: Weakness Stated Complaint: ams Time Seen by Provider: 06/12/24 05:32 History of Present Illness HPI narrative: 88-year-old female with known history of HFpEF, GI bleed, anemia requiring occasional transfusions, CKD, CAD, COPD, atrial fibrillation on Eliquis presents to the ER for concerns of altered mental status, increased oxygen requirement. Patient was recently discharged from hospital after being admitted for low H/H and having received blood transfusion and internal hemorrhoid banding. Recommendation of fiber supplement was made by GI after internal hemorrhoid banding. Review of discharge summary from 06/09 demonstrates patient developed shortness of breath while receiving an outpatient blood transfusion and was found to be fluid overloaded with findings concerning for TACO. Patient was treated with IV diuresis and transitioned back to her Bumex. Patient also had findings of significant physical deconditioning and concerns for hospital-acquired delirium. EMS provider who also happens to be patient's daughter reports that patient is typically fully alert and oriented and interactive. She states she has been a bit less so since her discharge from the hospital a few days ago, however halfway reported that last night around 8 PM patient went to bed normal with no complaints. Around 3:30 AM patient woke up and was complaining of not feeling well, they noted that her oxygen saturation was in the 70s on her normal 2 L nasal cannula so they increased it to 4 L but she only improved to the low 90s. Reportedly patient occasionally has waxing/waning oxygen saturation but not to this degree. Daughter also reports that patient has a chronic cough that seems worse tonight than normal. She says initially patient did not recognize her when she arrived to the halfway to pick her up, however patient's mental status seems to have cleared some since that time. Daughter still reports patient appears ill, weak, and more lethargic to her than normal. Patient is not reporting any pain, no chest pain or difficulty breathing, no vomiting or diarrhea, patient reports her last bowel movement was yesterday. She does not report any dizziness or headache. No numbness, tingling, or weakness. No dysuria. EMS reports patient had a blood glucose of 150 in route. Related Data Home Medications ?Medication ?Instructions ?Recorded ?Confirmed omeprazole 20 mg capsule,delayed 20 mg PO DAILY 12/01/20 06/12/24 release apixaban 2.5 mg tablet (Eliquis) 2.5 mg PO BID AFib 12/29/22 06/12/24 levothyroxine 25 mcg tablet 25 mcg PO DAILY 12/29/22 06/12/24 isosorbide mononitrate 30 mg 30 mg PO DAILY 03/30/24 06/12/24 tablet,extended release 24 hr paroxetine HCl 20 mg tablet 20 mg PO DAILY 03/30/24 06/12/24 Previous Rx's ?Medication ?Instructions ?Recorded bumetanide 1 mg tablet 1 mg PO DAILY #90 tabs 11/18/23 metoprolol tartrate 50 mg tablet 50 mg PO BID #60 tabs 04/02/24 dapagliflozin propanediol 10 mg 10 mg PO DAILY 30 days #30 tabs 06/09/24 tablet (Farxiga) polyethylene glycol 3350 17 gram 17 g PO DAILY #30 ea 06/09/24 oral powder packet (HealthyLax) Allergies Allergy/AdvReac Type Severity Reaction Status Date / Time cefdinir Allergy Severe Hives Verified 06/06/24 11:23 iodine [IODINE] Allergy Severe S-ANAPHYLAX Verified 06/06/24 11:23 IS Sulfa (Sulfonamide Allergy Severe I-HIVES Verified 06/06/24 11:23 Antibiotics) [SULFA (SULFONAMIDE ANTIBIOTICS)] Penicillins [PENICILLINS] Allergy Intermediate I-RASH Verified 06/06/24 11:23 codeine [CODEINE] Allergy Unknown NA-HALLUCIN Verified 06/06/24 11:23 ATIONS hydrogen peroxide Allergy Unknown Other Verified 06/06/24 11:23 PFS <Jose Medeiros MD - Last Filed: 06/12/24 06:49> [facility] Disclaimer: The information contained in this section may have been updated after the patient was seen, as this information can be updated by other users. Medical History Normal colonoscopy Respiratory failure with hypoxia TIA (transient ischemic attack) Rapid atrial fibrillation Diverticulitis Anemia requiring transfusions Acute hypoxemic respiratory failure Acute on chronic diastolic CHF (congestive heart failure) SIRS (systemic inflammatory response syndrome) Aortic stenosis COPD (chronic obstructive pulmonary disease) with acute bronchitis Hypotensive episode COPD (chronic obstructive pulmonary disease) Hypoxia Subungual hematoma of left ring finger Gangrene of finger of left hand Acquired hypothyroidism Atrial fibrillation CKD (chronic kidney disease) CAD (coronary artery disease) Cellulitis of left ring finger Gastroenteritis Concussion without loss of consciousness Head contusion Facial contusion Congestive heart disease Pleural effusion Chronic anemia Renal insufficiency Anticoagulated on Coumadin Junctional bradycardia Surgical History Hx of cholecystectomy S/P lumpectomy, left breast Status post total hip replacement, right Family History Other Family history of diabetes mellitus type II Family history of hypertension Social History Smoking Status: Former smoker tobacco type: cigarettes second hand exposure: No alcohol intake: never counseling given: No substance use type: denies use current occupational status: retired Travel in the last 8 weeks: None household members: none housing: apartment caffeine: Yes Other Medical History Have you received the Flu Vaccine for this season: No Have you received the Pneumonia Vaccine: No <Jose Medeiros MD - Last Filed: 06/12/24 06:49> ROS Obtained: Yes All systems reviewed & no additional complaints except as documented Positive ROS per HPI Physical Exam <Jose Medeiros MD - Last Filed: 06/12/24 06:49> General General appearance: alert and in no apparent distress Head Head exam: atraumatic and normocephalic Eye Eye exam: Present PERRL and EOMI; Absent conjunctival injection ENT ENT exam: Present mucous membranes moist Neck Neck exam: Present normal inspection and full ROM Chest Chest inspection: Present symmetric chest wall rise Respiratory Respiratory exam: Absent normal lung sounds bilaterally (Rhonchi that move with cough, diminished air movement at the bases), respiratory distress, wheezes or stridor Cardiovascular Cardiovascular exam: Present tachycardia, irregular rhythm and other (2+ pulses in bilateral upper extremities) Abdominal Exam Abdominal exam: Present soft and hernia (Ventral hernia superior to umbilicus that is soft, no overlying skin changes, not easily reduced); Absent distention or tenderness Extremities Exam Extremities exam: Present full ROM and edema (2+ pitting edema bilateral lower extremities); Absent joint swelling or calf tenderness Neurological Exam Neurological exam: Present alert and oriented X3 (Fully oriented at this time); Absent motor sensory deficit (5 out of 5 strength and normal sensation in all extremities, normal speech, no facial droop) Psychiatric Psychiatric exam: Present normal affect and normal mood Skin Skin exam: Present warm and dry HEART Score <Jose Medeiros MD - Last Filed: 06/12/24 06:49> HEART Score HEART Score assessment performed?: Yes History (anamnesis): Slightly suspicious ECG: Non-specific disturbance Age: >65 years Risk factors: Atherosclerosis history Troponin: </= normal limit HEART Score: 5 <Marlo Deras MD - Last Filed: 06/12/24 08:47> HEART Score HEART Score: 5 Critical Care <Jose Medeiros MD - Last Filed: 06/12/24 06:49> Critical Care Time Critical Care Time: Yes Attestation: On 06/12/24, the high probability of a clinically significant, sudden or life threatening deterioration of the following system(s) (respiratory) required my full and direct attention, intervention and personal management. The time I documented below is in addition to time spent performing reported procedures but includes the following listed in this critical care notation. Total Time Total Critical Care Time: 35 Medical Decision Making <Jose Medeiros MD - Last Filed: 06/12/24 06:49> Medical Records Medical records reviewed: Yes I reviewed the patient's medical records. MR Comment: See HPI for details Dirk Inquiry Pt receiving controlled substance: No Vital Signs Vital Signs: 06/12/24 05:45 06/12/24 06:03 06/12/24 06:31 Temperature 98.2 F Temperature Source Oral Pulse Rate 79 102 H Pulse Rate [Left Radial] 102 H Respiratory Rate 24 24 Blood Pressure 152/82 H 159/92 H Blood Pressure [Right Arm] 122/84 Blood Pressure Mean [Right Arm] 96 Blood Pressure Source [Right Arm] Automatic Cuff Blood Pressure Position [Right Arm] Sitting 02 Sat by Pulse Oximetry 96 97 99 Oxygen Delivery Method Nasal Cannula Oxygen Flow Rate (LPM) 4 06/12/24 06:37 06/12/24 06:37 Temperature Temperature Source Pulse Rate 95 H 92 H Pulse Rate [Left Radial] Respiratory Rate Blood Pressure Blood Pressure [Right Arm] Blood Pressure Mean [Right Arm] Blood Pressure Source [Right Arm] Blood Pressure Position [Right Arm] 02 Sat by Pulse Oximetry Oxygen Delivery Method Oxygen Flow Rate (LPM) Lab Data Labs: Lab Results 06/12/24 05:45: WBC 5.9, RBC 3.21 L, Hgb 8.5 L, Hct 28.5 L, MCV 88.7, MCH 26.6 L, MCHC 30.0 L, RDW 17.8 H, Plt Count 355, MPV 8.5, Neut % (Auto) 73.7, Lymph % (Auto) 13.8, [place] % (Auto) 8.8, Eos % (Auto) 3.0, Baso % (Auto) 0.7, Neut # (Auto) 4.3, Lymph # (Auto) 0.8, [place] # (Auto) 0.5, Eos # (Auto) 0.2, Baso # (Auto) 0.0, D-Dimer 0.61 H, VBG pH 7.30 L, VBG pCO2 60.7 H, VBG pO2 31.7, VBG HCO3 29.3, VBG Total CO2 31.2 H, VBG O2 Saturation 53.5, VBG Base Excess 2.9 H, VBG Lactic Acid 2.3 H, Sodium 138, Potassium 4.4, Chloride 100, Carbon Dioxide 34 H, Anion Gap 8.4, BUN 39 H, Creatinine 2.60 H, Estimated Creat Clear 20, Estimated GFR 17 L*, Est GFR ( Amer) 21 L, Glucose 105 H, Calcium 9.4, Total Bilirubin 0.6, AST 17, ALT 14, Alkaline Phosphatase 151 H, Troponin I 0.02, NT-Pro-B Natriuret Pep 41884 H, Total Protein 5.9 L, Albumin 3.6, Globulin 2.3, Albumin/Globulin Ratio 1.6, Plasma/Serum Alcohol < 10, SARS-CoV-2 (PCR) Not detected, Influenza A Untype (PCR) Not detected, Influenza Type B (PCR) Not detected 06/12/24 05:52: Urine Color Yellow, Urine Appearance Clear, Urine pH 6.0, Ur Specific [place] 1.020, Urine Protein Negative, Urine Glucose (UA) Trace, Urine Ketones Negative, Urine Blood Negative, Urine Nitrate Negative, Urine Bilirubin Negative, Urine Urobilinogen 0.2, Ur Leukocyte Esterase Negative, Urine RBC None, Urine WBC None, Ur Squamous Epith Cells None, Urine Bacteria None 06/12/24 06:02: Urine Opiates Screen Negative, Urine Methadone Screen Negative, Ur Barbituates Screen Negative, Ur Phencyclidine Scrn Negative, Ur Amphetamines Screen Negative, U Benzodiazepines Scrn Negative, Urine Cocaine Screen Negative, U Marijuana (THC) Screen Negative 06/12/24 07:15: VBG pH 7.42 H, VBG pCO2 43.5, VBG pO2 23.0 L, VBG HCO3 28.0, VBG Total CO2 29.4 H, VBG O2 Saturation 41.6 L, VBG Base Excess 3.3 H, VBG Lactic Acid 2.3 H 06/12/24 05:45 06/12/24 05:45 Response Orders (Tests/Meds): ED MEDICATIONS Generic Name Dose Route Start Last Admin Trade Name Freq PRN Reason Stop Dose Admin Acetaminophen 650 mg 06/12/24 08:41 Acetaminophen 325mg Tab PO 07/12/24 08:40 Q4HP PRN Fever or Mild Pain (1-3) Enoxaparin Sodium 30 mg 06/12/24 09:00 Enoxaparin 30mg/0.3ml Syringe SQ 07/12/24 08:59 DAILY MARCELINA Levofloxacin/Dextrose 750 mg in 150 mls @ 100 mls/hr 06/12/24 08:30 06/12/24 08:43 Levofloxacin 750mg/150ml Premix IV 06/22/24 08:29 100 mls/hr Q24H MARCELINA Administration Ondansetron HCl 4 mg 06/12/24 08:41 Ondansetron 4mg/2ml Vial IV 07/12/24 08:40 Q8HP PRN Nausea Sodium Chloride 3 ml 06/12/24 08:41 Sodium Chloride 3% 15ml [facility] 07/12/24 08:40 ONCE PRN INDUCE SPUTUM COLLECTION Discontinued Medications Generic Name Dose Route Start Last Admin Trade Name Freq PRN Reason Stop Dose Admin Albuterol/Ipratropium 9 ml 06/12/24 06:11 06/12/24 06:37 Ipratropium/Albuterol 3 Ml [facility] 06/12/24 06:12 9 ml ONCE ONE Administration Lactated Ringer's 250 mls @ 999 mls/hr 06/12/24 06:25 06/12/24 06:44 Lactated Ringer's 500ml IV 06/12/24 06:40 999 mls/hr .Q16M ONE Administration Methylprednisolone Sodium Succinate 125 mg 06/12/24 06:19 06/12/24 06:44 Methylprednisolone Sod Succ 125mg Vial IV 06/12/24 06:20 125 mg ONCE ONE Administration ORDERS Category Date Time Status CT head/brain wo con Stat Cat Scan 06/12/24 05:38 Completed CXR 2 view (NOT portable) [XR chest 2V] Stat Exams 06/12/24 06:03 Completed BNP [NT Pro Brain Natriuretic Pep.] Stat Lab 06/12/24 05:45 Completed CBC w/Auto Diff [Complete Blood Count Auto Diff] Stat Lab 06/12/24 05:45 Completed CMP [Comprehensive Metabolic Panel] Stat Lab 06/12/24 05:45 Completed Complete Blood Count Auto Diff AMLAB Lab 06/13/24 06:00 Ordered Complete Blood Count Auto Diff AMLAB Lab 06/14/24 06:00 Ordered Complete Blood Count Auto Diff AMLAB Lab 06/15/24 06:00 Ordered Complete Blood Count Auto Diff AMLAB Lab 06/16/24 06:00 Ordered Complete Blood Count Auto Diff AMLAB Lab 06/17/24 06:00 Ordered Comprehensive Metabolic Panel AMLAB Lab 06/13/24 06:00 Ordered Comprehensive Metabolic Panel AMLAB Lab 06/14/24 06:00 Ordered Comprehensive Metabolic Panel AMLAB Lab 06/15/24 06:00 Ordered Comprehensive Metabolic Panel AMLAB Lab 06/16/24 06:00 Ordered Comprehensive Metabolic Panel AMLAB Lab 06/17/24 06:00 Ordered D-Dimer Stat Lab 06/12/24 05:45 Completed Ethanol [Ethyl Alcohol] Stat Lab 06/12/24 05:45 Completed HIV (1&2) Antibody Rapid Stat Lab 06/12/24 05:45 Received Hep C Ab with Reflex to RNA Stat Lab 06/12/24 05:45 Received Magnesium AMLAB Lab 06/13/24 06:00 Ordered Magnesium AMLAB Lab 06/14/24 06:00 Ordered Magnesium AMLAB Lab 06/15/24 06:00 Ordered Rapid PCR Covid and Flu A/B Stat Lab 06/12/24 05:45 Completed Trop I [Troponin I] Stat Lab 06/12/24 05:45 Completed Troponin I Q3H Lab 06/12/24 08:45 Ordered Troponin I Q3H Lab 06/12/24 11:45 Ordered UDS [Drug Screen,Urine] Stat Lab 06/12/24 06:02 Completed Urinalysis and Microscopic Stat Lab 06/12/24 05:52 Completed Blood Culture Stat Micro 06/12/24 08:41 Ordered Sputum Culture & Gram Stain Stat Micro 06/12/24 08:41 Ordered VBG [Venous Blood Gas] Stat RT 06/12/24 05:45 Completed VBG [Venous Blood Gas] Stat RT 06/12/24 07:15 Completed MDM Narrative Medical Decision Narrative: In summary, this 88-year-old female presents to the emergency department today with concerns of being excessively tired, mildly confused, worsening cough, low oxygen. On initial evaluation patient is slightly tachycardic with a regular rate and rhythm consistent with her known history of atrial fibrillation, blood pressure is normotensive, fully oriented, no localizing neurologic deficits, pulmonary exam with rhonchi, rales, decreased air movement at the lung bases, chronic cough present, peripheral edema present. Differential diagnosis includes but is not limited to ACS, PE, CHF exacerbation, urinary tract infection, electrolyte abnormality, worsening kidney dysfunction, viral syndrome, I considered stroke however patient is fully oriented, no lateralizing deficits, no findings of stroke on exam, NIH 0. Based on these concerns, I ordered serum labs, cardiac workup, CT head, was initially going to perform CTA PE however patient has history of severe kidney dysfunction as well as anaphylaxis to iodinated contrast. Reportedly she can tolerate contrast with premedication however given her already slightly altered mental status from her baseline, I am concerned about giving her diphenhydramine and steroids. At this time D-dimer will be ordered as a screening exam. Patient is already receiving chest x-ray. Patient is requiring increased oxygen, currently on 4 L when her baseline is 2. ECG personally interpreted demonstrates atrial fibrillation, rate 100, normal axis, normal QTc, no STEMI,ECG similar to the one performed on 06/06/2024. Labs personally reviewed demonstrate no leukocytosis, anemia improved from prior now up to 8.5 from 7.7 on the day of patient's discharge from the hospital, normal platelets, CMP with baseline kidney dysfunction, low GFR, VBG notable for respiratory acidosis with mild lactic acidosis. Patient's pCO2 was increased from baseline. I ordered DuoNeb, Solu-Medrol, BiPAP to help with pCO2 clearance and respiratory support which may improve patient's mental status. Patient has a very slight lactic acidosis lactate 2.3, however I hesitate to give her significant IV fluids due to her history of fluid overload and obvious clinical findings of it as well. She received 250 mL LR and is able to tolerate oral intake which will be given to her. Initial troponin 0.02, stable from baseline. UA negative for findings of infection. BNP improved from the day of discharge now 15,300, improved from 16,700 on the day of discharge. EtOH negative. Chest x-ray personally interpreted demonstrates PA view appears to be miss oriented with the heart now on the right side as well as some radiopaque materials that have previously been identified to be on patient's left appearing to be on the right. I discussed this with radiology, tech cannot confirm whether or not this was uploaded/shot incorrectly so she is going to repeat chest x-ray. Patient has cardiomegaly and findings of pulmonary edema however this does appear improved compared to chest x-ray from 06/06. Radiology read pending. CT imaging personally interpreted demonstrate no acute intracranial abnormality, radiology read pending. Patient is tolerating BiPAP well. After approximately 1 hour on BiPAP repeat VBG will be performed to reassess patient's pCO2. UDS, D-dimer pending at the time of physician handoff. Patient handed off to Dr. Deras for further management and disposition. <Marlo Deras MD - Last Filed: 06/12/24 08:47> Vital Signs Vital Signs: 06/12/24 05:45 06/12/24 06:03 06/12/24 06:31 Temperature 98.2 F Temperature Source Oral Pulse Rate 79 102 H Pulse Rate [Left Radial] 102 H Respiratory Rate 24 24 Blood Pressure 152/82 H 159/92 H Blood Pressure [Right Arm] 122/84 Blood Pressure Mean [Right Arm] 96 Blood Pressure Source [Right Arm] Automatic Cuff Blood Pressure Position [Right Arm] Sitting 02 Sat by Pulse Oximetry 96 97 99 Oxygen Delivery Method Nasal Cannula Oxygen Flow Rate (LPM) 4 06/12/24 06:37 06/12/24 06:37 Temperature Temperature Source Pulse Rate 95 H 92 H Pulse Rate [Left Radial] Respiratory Rate Blood Pressure Blood Pressure [Right Arm] Blood Pressure Mean [Right Arm] Blood Pressure Source [Right Arm] Blood Pressure Position [Right Arm] 02 Sat by Pulse Oximetry Oxygen Delivery Method Oxygen Flow Rate (LPM) Lab Data Labs: Lab Results 06/12/24 05:45: WBC 5.9, RBC 3.21 L, Hgb 8.5 L, Hct 28.5 L, MCV 88.7, MCH 26.6 L, MCHC 30.0 L, RDW 17.8 H, Plt Count 355, MPV 8.5, Neut % (Auto) 73.7, Lymph % (Auto) 13.8, [place] % (Auto) 8.8, Eos % (Auto) 3.0, Baso % (Auto) 0.7, Neut # (Auto) 4.3, Lymph # (Auto) 0.8, [place] # (Auto) 0.5, Eos # (Auto) 0.2, Baso # (Auto) 0.0, D-Dimer 0.61 H, VBG pH 7.30 L, VBG pCO2 60.7 H, VBG pO2 31.7, VBG HCO3 29.3, VBG Total CO2 31.2 H, VBG O2 Saturation 53.5, VBG Base Excess 2.9 H, VBG Lactic Acid 2.3 H, Sodium 138, Potassium 4.4, Chloride 100, Carbon Dioxide 34 H, Anion Gap 8.4, BUN 39 H, Creatinine 2.60 H, Estimated Creat Clear 20, Estimated GFR 17 L*, Est GFR ( Amer) 21 L, Glucose 105 H, Calcium 9.4, Total Bilirubin 0.6, AST 17, ALT 14, Alkaline Phosphatase 151 H, Troponin I 0.02, NT-Pro-B Natriuret Pep 79175 H, Total Protein 5.9 L, Albumin 3.6, Globulin 2.3, Albumin/Globulin Ratio 1.6, Plasma/Serum Alcohol < 10, SARS-CoV-2 (PCR) Not detected, Influenza A Untype (PCR) Not detected, Influenza Type B (PCR) Not detected 06/12/24 05:52: Urine Color Yellow, Urine Appearance Clear, Urine pH 6.0, Ur Specific [place] 1.020, Urine Protein Negative, Urine Glucose (UA) Trace, Urine Ketones Negative, Urine Blood Negative, Urine Nitrate Negative, Urine Bilirubin Negative, Urine Urobilinogen 0.2, Ur Leukocyte Esterase Negative, Urine RBC None, Urine WBC None, Ur Squamous Epith Cells None, Urine Bacteria None 06/12/24 06:02: Urine Opiates Screen Negative, Urine Methadone Screen Negative, Ur Barbituates Screen Negative, Ur Phencyclidine Scrn Negative, Ur Amphetamines Screen Negative, U Benzodiazepines Scrn Negative, Urine Cocaine Screen Negative, U Marijuana (THC) Screen Negative 06/12/24 07:15: VBG pH 7.42 H, VBG pCO2 43.5, VBG pO2 23.0 L, VBG HCO3 28.0, VBG Total CO2 29.4 H, VBG O2 Saturation 41.6 L, VBG Base Excess 3.3 H, VBG Lactic Acid 2.3 H Response Orders (Tests/Meds): ED MEDICATIONS Generic Name Dose Route Start Last Admin Trade Name Freq PRN Reason Stop Dose Admin Acetaminophen 650 mg 06/12/24 08:41 Acetaminophen 325mg Tab PO 07/12/24 08:40 Q4HP PRN Fever or Mild Pain (1-3) Enoxaparin Sodium 30 mg 06/12/24 09:00 Enoxaparin 30mg/0.3ml Syringe SQ 07/12/24 08:59 DAILY MARCELINA Levofloxacin/Dextrose 750 mg in 150 mls @ 100 mls/hr 06/12/24 08:30 06/12/24 08:43 Levofloxacin 750mg/150ml Premix IV 06/22/24 08:29 100 mls/hr Q24H MARCELINA Administration Ondansetron HCl 4 mg 06/12/24 08:41 Ondansetron 4mg/2ml Vial IV 07/12/24 08:40 Q8HP PRN Nausea Sodium Chloride 3 ml 06/12/24 08:41 Sodium Chloride 3% 15ml [facility] 07/12/24 08:40 ONCE PRN INDUCE SPUTUM COLLECTION Discontinued Medications Generic Name Dose Route Start Last Admin Trade Name Freq PRN Reason Stop Dose Admin Albuterol/Ipratropium 9 ml 06/12/24 06:11 06/12/24 06:37 Ipratropium/Albuterol 3 Ml [facility] 06/12/24 06:12 9 ml ONCE ONE Administration Lactated Ringer's 250 mls @ 999 mls/hr 06/12/24 06:25 06/12/24 06:44 Lactated Ringer's 500ml IV 06/12/24 06:40 999 mls/hr .Q16M ONE Administration Methylprednisolone Sodium Succinate 125 mg 06/12/24 06:19 06/12/24 06:44 Methylprednisolone Sod Succ 125mg Vial IV 06/12/24 06:20 125 mg ONCE ONE Administration ORDERS Category Date Time Status CT head/brain wo con Stat Cat Scan 06/12/24 05:38 Completed CXR 2 view (NOT portable) [XR chest 2V] Stat Exams 06/12/24 06:03 Completed BNP [NT Pro Brain Natriuretic Pep.] Stat Lab 06/12/24 05:45 Completed CBC w/Auto Diff [Complete Blood Count Auto Diff] Stat Lab 06/12/24 05:45 Completed CMP [Comprehensive Metabolic Panel] Stat Lab 06/12/24 05:45 Completed Complete Blood Count Auto Diff AMLAB Lab 06/13/24 06:00 Ordered Complete Blood Count Auto Diff AMLAB Lab 06/14/24 06:00 Ordered Complete Blood Count Auto Diff AMLAB Lab 06/15/24 06:00 Ordered Complete Blood Count Auto Diff AMLAB Lab 06/16/24 06:00 Ordered Complete Blood Count Auto Diff AMLAB Lab 06/17/24 06:00 Ordered Comprehensive Metabolic Panel AMLAB Lab 06/13/24 06:00 Ordered Comprehensive Metabolic Panel AMLAB Lab 06/14/24 06:00 Ordered Comprehensive Metabolic Panel AMLAB Lab 06/15/24 06:00 Ordered Comprehensive Metabolic Panel AMLAB Lab 06/16/24 06:00 Ordered Comprehensive Metabolic Panel AMLAB Lab 06/17/24 06:00 Ordered D-Dimer Stat Lab 06/12/24 05:45 Completed Ethanol [Ethyl Alcohol] Stat Lab 06/12/24 05:45 Completed HIV (1&2) Antibody Rapid Stat Lab 06/12/24 05:45 Received Hep C Ab with Reflex to RNA Stat Lab 06/12/24 05:45 Received Magnesium AMLAB Lab 06/13/24 06:00 Ordered Magnesium AMLAB Lab 06/14/24 06:00 Ordered Magnesium [facility] 06/15/24 06:00 Ordered Rapid PCR Covid and Flu A/B Stat Lab 06/12/24 05:45 Completed Trop I [Troponin I] Stat Lab 06/12/24 05:45 Completed Troponin I Q3H Lab 06/12/24 08:45 Ordered Troponin I Q3H Lab 06/12/24 11:45 Ordered UDS [Drug Screen,Urine] Stat Lab 06/12/24 06:02 Completed Urinalysis and Microscopic Stat Lab 06/12/24 05:52 Completed Blood Culture Stat Micro 06/12/24 08:41 Ordered Sputum Culture & Gram Stain Stat Micro 06/12/24 08:41 Ordered VBG [Venous Blood Gas] Stat RT 06/12/24 05:45 Completed VBG [Venous Blood Gas] Stat RT 06/12/24 07:15 Completed MDM Narrative Medical Decision Narrative: In summary, this 88-year-old female presents to the emergency department today with concerns of being excessively tired, mildly confused, worsening cough, low oxygen. On initial evaluation patient is slightly tachycardic with a regular rate and rhythm consistent with her known history of atrial fibrillation, blood pressure is normotensive, fully oriented, no localizing neurologic deficits, pulmonary exam with rhonchi, rales, decreased air movement at the lung bases, chronic cough present, peripheral edema present. Differential diagnosis includes but is not limited to ACS, PE, CHF exacerbation, urinary tract infection, electrolyte abnormality, worsening kidney dysfunction, viral syndrome, I considered stroke however patient is fully oriented, no lateralizing deficits, no findings of stroke on exam, NIH 0. Based on these concerns, I ordered serum labs, cardiac workup, CT head, was initially going to perform CTA PE however patient has history of severe kidney dysfunction as well as anaphylaxis to iodinated contrast. Reportedly she can tolerate contrast with premedication however given her already slightly altered mental status from her baseline, I am concerned about giving her diphenhydramine and steroids. At this time D-dimer will be ordered as a screening exam. Patient is already receiving chest x-ray. Patient is requiring increased oxygen, currently on 4 L when her baseline is 2. ECG personally interpreted demonstrates atrial fibrillation, rate 100, normal axis, normal QTc, no STEMI,ECG similar to the one performed on 06/06/2024. Labs personally reviewed demonstrate no leukocytosis, anemia improved from prior now up to 8.5 from 7.7 on the day of patient's discharge from the hospital, normal platelets, CMP with baseline kidney dysfunction, low GFR, VBG notable for respiratory acidosis with mild lactic acidosis. Patient's pCO2 was increased from baseline. I ordered DuoNeb, Solu-Medrol, BiPAP to help with pCO2 clearance and respiratory support which may improve patient's mental status. Patient has a very slight lactic acidosis lactate 2.3, however I hesitate to give her significant IV fluids due to her history of fluid overload and obvious clinical findings of it as well. She received 250 mL LR and is able to tolerate oral intake which will be given to her. Initial troponin 0.02, stable from baseline. UA negative for findings of infection. BNP improved from the day of discharge now 15,300, improved from 16,700 on the day of discharge. EtOH negative. Chest x-ray personally interpreted demonstrates PA view appears to be miss oriented with the heart now on the right side as well as some radiopaque materials that have previously been identified to be on patient's left appearing to be on the right. I discussed this with radiology, tech cannot confirm whether or not this was uploaded/shot incorrectly so she is going to repeat chest x-ray. Patient has cardiomegaly and findings of pulmonary edema however this does appear improved compared to chest x-ray from 06/06. Radiology read pending. CT imaging personally interpreted demonstrate no acute intracranial abnormality, radiology read pending. Patient is tolerating BiPAP well. After approximately 1 hour on BiPAP repeat VBG will be performed to reassess patient's pCO2. UDS, D-dimer pending at the time of physician handoff. Patient handed off to Dr. Deras for further management and disposition. MD Braeden: I assumed care of this patient at approximately 7 AM. Repeat VBG and reevaluation was pending. Repeat VBG revealed venous pH of 7.4, pCO2 43. D-dimer 0.61 which is less than patient's age-adjusted cut off. No indication for further diagnostic workup at this time. Reviewed patient's chest x-ray which appear to reveal opacity on the right side. This was also felt to be the case with radiology report despite patient's apparent disorientation. On reevaluation, she was continuing to sat 90% on 4 L nasal cannula with a prior oxygen requirement of 2 L. Also came in encephalopathic. Decided to treat patient empirically for hospital-acquired pneumonia. She had a penicillin and cephalosporin allergy, therefore levofloxacin was chosen as initial agent. Discussed with hospital medicine who agreed with admission
--- NOTE | 2024-06-12 05:50 | ECG_ITS ---
APPROVED REPORT Exam: Resting ECG HR:100 bpm ECG Measurements Heart Rate 100 AXES QRSd 93 QRS 71 QT 361 T 74 QTc 418 Conclusion ATRIAL FIBRILLATION WITH RAPID VENTRICULAR RESPONSE LOW QRS VOLTAGE IN PRECORDIAL LEADS [QRS DEFLECTION < 1.0 mV IN CHEST LEADS] MODERATE ST DEPRESSION [0.05+ mV ST DEPRESSION] No STEMI Electronically signed by : DAILY DURAN, 06/13/2024 06:59:17
[2024-06-12 05:51] LABS: Basophils % 0.7 % (0.1-2.0); Eosinophils # 0.2 K/mm3 (0.0-0.4); Hematocrit 28.5 % (37.0-47.0); Hemoglobin 8.5 g/dL (12.2-16.2); Lymphocytes # 0.8 K/mm3 (0.7-4.5); Lymphocytes % 13.8 % (10-50); Mean Corpuscular Hemoglobin 26.6 pg (27.0-31.2); Mean Corpuscular Volume 88.7 fl (81-99); Mean Platelet Volume 8.5 fl (7.4-10.4); Monocytes # 0.5 K/mm3 (0.1-1.0); Monocytes % 8.8 % (1.7-9.3); Neutrophils # 4.3 K/mm3 (1.8-7.8); Neutrophils % 73.7 % (37.0-80.0); Platelet Count 355 K/mm3 (142-424); Red Blood Count 3.21 M/mm3 (4.20-5.40); Red Cell Distribution Width 17.8 % (11.5-17.5); White Blood Count 5.9 K/mm3 (4.8-10.8)
[2024-06-12 05:54] LABS: Coronavirus 19, PCR Not Detected (NotDetected); Influenza A, PCR Not Detected (NotDetected); Influenza B, PCR Not Detected (NotDetected)
[2024-06-12 06:03] LABS: Albumin Level 3.6 g/dl (3.5-5.0); Chloride 100 mmol/L (98-107); Potassium 4.4 mmoL/L (3.5-5.1); Sodium 138 mmol/L (136-145); VBG Base Excess 2.9 mmol/L (-2.4-2.3); VBG HCO3 29.3 mmol/L (23-30); VBG Oxygen Saturation 53.5 % (50-70); VBG PO2 31.7 mmol/L (28-40); VBG Total CO2 31.2 mmol/L (23-27)
--- NOTE | 2024-06-12 06:03 | XR_ITS ---
PROCEDURE INFORMATION: Exam: XR Chest Exam date and time: 06/12/2024 6:02 AM Age: 88 years old Clinical indication: Cough and shortness of breath; Additional info: Cough SOA TECHNIQUE: Imaging protocol: Radiologic exam of the chest. Views: 2 views. COMPARISON: CR XR CHEST PORTABLE 06/07/2024 2:50 PM FINDINGS: Lungs: A 1.5 cm nodule of the left lung base noted on CT thorax exam dated March 30, 2024 is not well visualized on the current radiograph. 3 mm calcified granuloma of the right lung base. Ground-glass opacity of the right mid lung zone airspace disease of the right lung base. Pleural spaces: Small right pleural effusion. No pneumothorax. Heart/Mediastinum: Cardiac silhouette enlargement. Aortic arch calcification. Bones/joints: Unremarkable. Soft tissues: Left axillary surgical clips. IMPRESSION: 1. Right mid to lower lung zone airspace disease, atelectasis or infection, and small right pleural effusion. 2. A 1.5 cm nodule of the left lung base noted on CT thorax exam dated March 30, 2024 is not well visualized on the current radiograph. The CT chest recommendations were: Consider PET/CT or short-term CT follow-up in 2 months. 3. Cardiac silhouette enlargement.
[2024-06-12 06:06] LABS: Alanine Aminotransferase 14 U/L (12-78); Albumin/Globulin Ratio 1.6 (1.1-1.8); Alkaline Phosphatase 151 U/L (38-126); Anion Gap 8.4 mEq/L (5-15); Aspartate Amino Transferase 17 U/L (14-36); Bilirubin,Total 0.6 mg/dl (0.2-1.3); Blood Urea Nitrogen 39 mg/dl (7-17); Calcium 9.4 mg/dl (8.4-10.2); Carbon Dioxide 34 mmol/L (22.0-30.0); Creatinine Clearance Estimated 20 mL/min (50-200); Estimated Glomerular Filt Rate 17 ml/min (>60); GFR (African American) 21 ML/MIN (>60); Globulin 2.3 g/dL (1.3-3.2); Glucose 105 mg/dl (74-100); Total Protein,Serum 5.9 g/dl (6.3-8.2)
--- NOTE | 2024-06-12 06:07 | PC.NURSE ---
Dr. Medeiros notified of critical pCO2
[2024-06-12 06:08] LABS: Lactate Venous 2.3 mmol/L (0.4-2.0); VBG PCO2 60.7 mmol/L (35-51)
[2024-06-12 06:10] LABS: Microscopic, Urine URINE MICROSCOPIC (MICROSCOPIC)
--- NOTE | 2024-06-12 06:13 | PC.NURSE ---
Notified respiratory of need for bipap to start when pt returns from ct scan. Pt is leaving now for scan.
[2024-06-12 06:15] LABS: NT Pro Brain Natriuretic Pep. 15300 pg/mL (0-450)
[2024-06-12 06:17] LABS: Troponin I 0.02 ng/ml (0.00-0.034)
[2024-06-12 06:20] LABS: Appearance,Urine CLEAR (Clear); Bilirubin,Urine Negative (Negative); Blood, Urine Negative (Negative); Color,Urine YELLOW (Yellow); Glucose,Urine (UA) TRACE (Negative); Ketones,Urine Negative (Negative); Leukocyte Esterase,Urine Negative (Negative); Nitrate,Urine Negative (Negative); Protein,Urine Negative (Negative); Urobilinogen,Urine 0.2 EU/dl (0.2)
[2024-06-12 06:23] LABS: Ethyl Alcohol < 10 mg/dl (0-10)
--- NOTE | 2024-06-12 06:31 | PC.NURSE ---
RT placed pt on bipap
[2024-06-12] MEDS: IPRATROPIUM/ALBUTEROL 3 ML NEB 9 ML IH (06:37)
[2024-06-12] MEDS: METHYLPREDNISOLONE SOD SUCC 125MG VIAL 125 MG IV (06:44)
[2024-06-12] MEDS: RINGERS SOLUTION,LACTATED 250 ML 999 ML IV (06:44)
[2024-06-12 06:58] LABS: Barbiturates Screen,Urine Negative ng/ml (<200)
[2024-06-12 06:59] LABS: Benzodiazepines Screen,Urine Negative ng/ml (<200)
[2024-06-12 07:00] LABS: Amphetamine/Metha Screen,Urine Negative ng/ml (<1000); Cannabinoid Screen,Urine Negative ng/ml (<50)
[2024-06-12 07:01] LABS: Cocaine Screen,Urine Negative ng/ml (<300)
[2024-06-12 07:02] LABS: Methadone Screen,Urine Negative ng/ml (<300); Opiate Screen,Urine Negative ng/ml (<300)
[2024-06-12 07:03] LABS: Phencyclidine Screen,Urine Negative ng/ml (<25)
--- NOTE | 2024-06-12 07:26 | PC.NURSE ---
Hogshead Liner El collected the VBG on this pt
[2024-06-12 07:33] LABS: Lactate Venous 2.3 mmol/L (0.4-2.0); VBG Base Excess 3.3 mmol/L (-2.4-2.3); VBG Oxygen Saturation 41.6 % (50-70); VBG PCO2 43.5 mmol/L (35-51); VBG PH 7.42 mmol/L (7.31-7.41); VBG Total CO2 29.4 mmol/L (23-27)
[2024-06-12 07:35] LABS: D-Dimer 0.61 ug/mL (0.0-0.5)
--- NOTE | 2024-06-12 08:02 | PC.NURSE ---
Dr. Deras at bedside
--- NOTE | 2024-06-12 08:30 | PC.NURSE ---
DR NEIL SPEAKING WITH HOSPITALIST
--- NOTE | 2024-06-12 08:34 | PC.NURSE ---
MD on phone with hospitalist at this time
--- NOTE | 2024-06-12 08:42 | PC.NURSE ---
Pt assisted to use bedpan
[2024-06-12] MEDS: LEVOFLOXACIN/D5W 750 MG/150 ML 750 MG/150 ML PIGGYBACK 100 MG IV (08:43)
--- NOTE | 2024-06-12 08:43 | PC.NURSE ---
COLLATOR HAND NOTIFIED OF ADMISSION
--- NOTE | 2024-06-12 09:20 | SW/DCPLANNER ---
Addendum entered by Ashley Blanc 06/15/24 10:06: I have updated Elsy peterson/ [facility] that patient will return today. Addendum entered by Ashley Blanc 06/14/24 10:05: I have updated [facility] that patient could potentially discharge this afternoon. Original Note: This patient currently resides at [facility] level of care. I will continue to update Danni peterson/ [facility] during hospital admission. Discharge date is unknown at this time.
[2024-06-12 09:27] LABS: Troponin I 0.02 ng/ml (0.00-0.034)
[2024-06-12] MEDS: ENOXAPARIN 30MG/0.3ML SYRINGE 30 MG SQ (09:42)
--- NOTE | 2024-06-12 09:48 | PC.NURSE ---
First set of blood cultures collected and sent to lab
--- NOTE | 2024-06-12 09:53 | HMH.PHAINT1 ---
Pharmacy Intervention Comments: Home medication list verified using list from pharmacy.
--- NOTE | 2024-06-12 10:05 | PC.NURSE ---
Second set of blood cultures collected and sent to lab
[2024-06-12 10:07] LABS: Reflex Lactic Add Lactic Reflex
--- NOTE | 2024-06-12 10:18 | PC.NURSE ---
pt arrived to floor via stretcher @[id number]
[2024-06-12 10:52] LABS: HIV (1&2) Antibody Rapid NONREACTIVE (NONREACTIVE)
[2024-06-12 12:18] LABS: Troponin I 0.02 ng/ml (0.00-0.034)
--- NOTE | 2024-06-12 15:43 | CT_ITS ---
PROCEDURE INFORMATION: Exam: CT Chest Without Contrast; Diagnostic Exam date and time: 06/12/2024 5:14 PM Age: 88 years old Clinical indication: Other: Further evaluate findings on cxr TECHNIQUE: Imaging protocol: Diagnostic computed tomography of the chest without contrast. Radiation optimization: All CT scans at this facility use at least one of these dose optimization techniques: automated exposure control; mA and/or kV adjustment per patient size (includes targeted exams where dose is matched to clinical indication); or iterative reconstruction. COMPARISON: CT CHEST WO CON 03/30/2024 3:29 PM FINDINGS: Tubes, catheters and devices: Recommend either biopsy or PET-CT scan to assess likelihood of malignancy. 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 Unchanged. Ground-glass and interstitial prominence mostly within the lung bases consistent with pulmonary edema. pulmonary nodule left lower lobe abutting the major fissure measuring 1.6 cm transverse dimension by 2.0 cm craniocaudal dimension again noted, slightly increased in size . Pleural spaces: Small bilateral pleural effusions with bibasilar atelectasis. Heart: Four chamber cardiac enlargement. Coronary arteries: Three-vessel coronary artery calcifications. Lymph nodes: Unremarkable. No enlarged lymph nodes. Vasculature: Dilated pulmonary arteries consistent with pulmonary arterial hypertension. Moderate atherosclerotic calcifications of the aorta. Diaphragm: Hiatal hernia identified measures 6 cm diameter. Kidneys: Simple cyst left kidney upper pole measures 8.6 cm. Bones/joints: Unremarkable. No acute fracture. Soft tissues: Unremarkable. IMPRESSION: 1. Pulmonary nodule left lower lobe abutting the major fissure measuring 1.6 cm transverse dimension by 2.0 cm craniocaudal dimension again noted, slightly increased in size . Recommend either biopsy or PET-CT scan to assess likelihood of malignancy. 2. 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 Unchanged. 3. Small bilateral pleural effusions with bibasilar atelectasis. Ground-glass and interstitial prominence mostly within the lung bases consistent with pulmonary edema. 4. Dilated pulmonary arteries consistent with pulmonary arterial hypertension. COMMENTS: Consistent with the [employer]'s Incidental Findings Committee white paper (J Am Andrade Radiol 2018): Any incidental renal lesion less than 1 cm or classified as too small to characterize, or any incidental cystic renal lesion characterized as simple-appearing, is likely benign. No follow-up imaging is recommended for these lesions per consensus recommendations based on imaging criteria.
[2024-06-12] MEDS: BUMETANIDE 1MG/4ML VIAL 1 MG IV (17:37)
--- NOTE | 2024-06-12 19:19 | PC.NURSE ---
Pt alert and oriented to self only. Pt admitted with pneumonia, she is on 4L NC which is her baseline. Pt voiding via purewick, but can ambulate with assist x1 to bathroom. Pt resting in bed comfortably with no complaints at this time.
--- NOTE | 2024-06-12 19:31 | P.HP_ITS ---
History of Present Illness *Admission Date: 06/12/24 *Reason for visit:: Shortness of breath, weakness *History of present illness: Aileen Bassett is a 88-year-old female with a history of HFpEF, TACO, chronic GI bleeds, internal hemorrhoids, A-fib on Eliquis, CKD stage IV, COPD on 2 L bas sofia, hypertension, hyperlipidemia, hypothyroidism who presented from nursing facility with with confusion, shortness of breath, worsening cough. She was recently discharged from our facility after being treated for TACO, HFpEF exacerbation, and GI bleed. Per daughter, she has been feeling more weak and coughing, with worsening confusion since getting to the nursing facility. At 330 this morning, patient was complaining about not feeling well. Her O2 saturation was in the 70s on 2 L nasal cannula. Improved to 90s with 4 L. Workup in the ED significant for WBC 5.9, Hgb 8.5, creatinine 2.6 near baseline, BNP 19565, troponin 0.[address] unremarkable for acute intracranial ischemic findings. CXR suggestive of right mid to lower airspace disease. Case was discussed with ED provider and decision was made to admit patient for acute on chronic hypoxic respiratory failure. [facility] Disclaimer: The information contained in this section may have been updated after the patient was seen, as this information can be updated by other users. Medical History Normal colonoscopy Respiratory failure with hypoxia TIA (transient ischemic attack) Rapid atrial fibrillation Diverticulitis Anemia requiring transfusions Acute hypoxemic respiratory failure Acute on chronic diastolic CHF (congestive heart failure) SIRS (systemic inflammatory response syndrome) Aortic stenosis COPD (chronic obstructive pulmonary disease) with acute bronchitis Hypotensive episode COPD (chronic obstructive pulmonary disease) Hypoxia Subungual hematoma of left ring finger Gangrene of finger of left hand Acquired hypothyroidism Atrial fibrillation CKD (chronic kidney disease) CAD (coronary artery disease) Cellulitis of left ring finger Gastroenteritis Concussion without loss of consciousness Head contusion Facial contusion Congestive heart disease Pleural effusion Chronic anemia Renal insufficiency Anticoagulated on Coumadin Junctional bradycardia Surgical History Hx of cholecystectomy S/P lumpectomy, left breast Status post total hip replacement, right Family History Other Family history of diabetes mellitus type II Family history of hypertension Social History (Updated 06/12/24 @ 10:41 by Edda Bell RN) Smoking Status: Former smoker tobacco type: cigarettes second hand exposure: No alcohol intake: never counseling given: No substance use type: denies use current occupational status: retired Travel in the last 8 weeks: None household members: none housing: apartment caffeine: Yes Other Medical History Have you received the Flu Vaccine for this season: No Have you received the Pneumonia Vaccine: No Meds Home Medications and Allergies Home Medications ?Medication ?Instructions ?Recorded ?Confirmed ?Type omeprazole 20 mg capsule,delayed 20 mg PO DAILY 12/01/20 06/12/24 History release apixaban 2.5 mg tablet (Eliquis) 2.5 mg PO BID 12/29/22 06/12/24 History levothyroxine 25 mcg tablet 25 mcg PO DAILY 12/29/22 06/12/24 History isosorbide mononitrate 30 mg 30 mg PO DAILY 03/30/24 06/12/24 History tablet,extended release 24 hr paroxetine HCl 20 mg tablet 20 mg PO DAILY 03/30/24 06/12/24 History metoprolol tartrate 50 mg tablet 50 mg PO BID #60 tabs 04/02/24 06/12/24 Rx dapagliflozin propanediol 10 mg 10 mg PO DAILY 30 days #30 tabs 06/09/24 06/12/24 Rx tablet (Farxiga) polyethylene glycol 3350 17 gram 17 g PO DAILY #30 ea 06/09/24 06/12/24 Rx oral powder packet (HealthyLax) acetaminophen 500 mg tablet 500 mg PO Q4H PRN Pain/fever 06/12/24 06/12/24 History (Acetaminophen Extra Strength) cyanocobalamin (vitamin B-12) 1,000 mcg IM MONTHLY 06/12/24 06/12/24 History 1,000 mcg/mL injection solution New Prescriptions to Start Prescriptions: Allergies Allergy/AdvReac Type Severity Reaction Status Date / Time cefdinir Allergy Severe Hives Verified 06/06/24 11:23 iodine [IODINE] Allergy Severe S-ANAPHYLAX Verified 06/06/24 11:23 IS Sulfa (Sulfonamide Allergy Severe I-HIVES Verified 06/06/24 11:23 Antibiotics) [SULFA (SULFONAMIDE ANTIBIOTICS)] Penicillins [PENICILLINS] Allergy Intermediate I-RASH Verified 06/06/24 11:23 codeine [CODEINE] Allergy Unknown NA-HALLUCIN Verified 06/06/24 11:23 ATIONS hydrogen peroxide Allergy Unknown Other Verified 06/06/24 11:23 Exam Data for Last 24 hours Vital signs and Labs for Last 24 Hours: Temp Pulse Resp BP Pulse Ox O2 Del Method O2 Flow Rate 98.8 F 117 H 19 150/90 H 95 Nasal Cannula 4 06/12/24 16:00 06/12/24 16:00 06/12/24 16:00 06/12/24 16:00 06/12/24 16:00 06/12/24 18:12 06/12/24 18:12 FiO2 28 06/12/24 06:15 Laboratory Results - last 24 hr 06/12/24 05:45: WBC 5.9, RBC 3.21 L, Hgb 8.5 L, Hct 28.5 L, MCV 88.7, MCH 26.6 L , MCHC 30.0 L, RDW 17.8 H, Plt Count 355, MPV 8.5, Neut % (Auto) 73.7, Lymph % (Auto) 13.8, [place] % (Auto) 8.8, Eos % (Auto) 3.0, Baso % (Auto) 0.7, Neut # (Auto) 4.3, Lymph # (Auto) 0.8, [place] # (Auto) 0.5, Eos # (Auto) 0.2, Baso # (Auto) 0.0, D-Dimer 0.61 H, VBG pH 7.30 L, VBG pCO2 60.7 H, VBG pO2 31.7, VBG HCO3 29.3, VBG Total CO2 31.2 H, VBG O2 Saturation 53.5, VBG Base Excess 2.9 H, VBG Lactic Acid 2.3 H, Sodium 138, Potassium 4.4, Chloride 100, Carbon Dioxide 34 H, Anion Gap 8.4, BUN 39 H, Creatinine 2.60 H, Estimated Creat Clear 20, Estimated GFR 17 L*, Est GFR ( Amer) 21 L, Glucose 105 H, Calcium 9.4, Total Bilirubin 0.6, AST 17, ALT 14, Alkaline Phosphatase 151 H, Troponin I 0.02, NT-Pro-B Natriuret Pep 99604 H, Total Protein 5.9 L, Albumin 3.6, Globulin 2.3, Albumin/Globulin Ratio 1.6, Plasma/Serum Alcohol < 10, SARS-CoV-2 (PCR) Not detected, HIV 1&2 Antibody Rapid Nonreactive, Influenza A Untype (PCR) Not detected, Influenza Type B (PCR) Not detected 06/12/24 05:52: Urine Color Yellow, Urine Appearance Clear, Urine pH 6.0, Ur Specific [place] 1.020, Urine Protein Negative, Urine Glucose (UA) Trace, Urine Ketones Negative, Urine Blood Negative, Urine Nitrate Negative, Urine Bilirubin Negative, Urine Urobilinogen 0.2, Ur Leukocyte Esterase Negative, Urine RBC None, Urine WBC None, Ur Squamous Epith Cells None, Urine Bacteria None 06/12/24 06:02: Urine Opiates Screen Negative, Urine Methadone Screen Negative, Ur Barbituates Screen Negative, Ur Phencyclidine Scrn Negative, Ur Amphetamines Screen Negative, U Benzodiazepines Scrn Negative, Urine Cocaine Screen Negative, U Marijuana (THC) Screen Negative 06/12/24 07:15: VBG pH 7.42 H, VBG pCO2 43.5, VBG pO2 23.0 L, VBG HCO3 28.0, VBG Total CO2 29.4 H, VBG O2 Saturation 41.6 L, VBG Base Excess 3.3 H, VBG Lactic Acid 2.3 H 06/12/24 08:55: Troponin I 0.02 06/12/24 11:44: Lactate 1.0, Troponin I 0.02 I & O for Last 24 hours: Intake & Output 06/09/24 06/10/24 06/11/24 06/12/24 23:59 23:59 23:59 23:59 Intake Total 360 / 360 Output Total 0 / 0 Balance 360 / 360 Weight 85.956 kg *Routine HEENT Exam Head: Present normocephalic Eye: Present EOMI and PERRL ENT: Present mucous membranes moist *Routine Neck Exam Neck: Present supple; Absent lymphadenopathy *Routine Respiratory Exam Respiratory: Present CTA bilaterally *Routine Cardiovascular Exam Cardiovascular: Present RRR *Routine Abdominal Exam Abdominal: Present soft and normoactive bowel sounds; Absent tenderness *Routine Rectal Exam Rectal:: deferred *Routine Genitalia Exam Genitalia:: deferred *Routine Extremities Exam Extremities: Present edema; Absent cyanosis or clubbing Comments: 3+ bilateral lower extremity pitting edema. *Routine Skin Exam Skin: Present warm; Absent rash *Routine Neurological Exam Neurological: Present alert Assessment and Plan *Assessment and plan (1) (HFpEF) heart failure with preserved ejection fraction: Status: Acute Category: Medical Code(s): I50.30 - Unspecified diastolic (congestive) heart failure (2) GIB (gastrointestinal bleeding): Status: Acute Category: Medical Code(s): K92.2 - Gastrointestinal hemorrhage, unspecified (3) Atrial fibrillation: Status: Chronic Qualifiers: Atrial fibrillation type: longstanding persistent Qualified Code(s): I48.11 - Longstanding persistent atrial fibrillation Category: Medical Code(s): I48.91 - Unspecified atrial fibrillation (4) Chronic anemia: Status: Chronic Category: Medical Code(s): D64.9 - Anemia, unspecified Plan Aileen Bassett is a 88-year-old female with a history of HFpEF, TACO, chronic GI bleeds, internal hemorrhoids, A-fib on Eliquis, CKD stage IV, COPD on 2 L baseline, hypertension, hyperlipidemia, hypothyroidism who presented from nursing facility with with confusion, shortness of breath, worsening cough. She was recently discharged from our facility 06/09/2024 after being treated for TACO, HFpEF exacerbation, and GI bleed. Per daughter, she has been feeling more weak and coughing, with worsening confusion since getting to the nursing facility. At 330 this morning, patient was complaining about not feeling well. Her O2 saturation was in the 70s on 2 L nasal cannula. Improved to 90s with 4 L. Workup in the ED significant for WBC 5.9, Hgb 8.5, creatinine 2.6 near baseline, BNP 32483, troponin 0.[address] unremarkable for acute intracranial ischemic findings. CXR suggestive of right mid to lower airspace disease. Case was discussed with ED provider and decision was made to admit patient for acute on chronic hypoxic respiratory failure. #Acute on chronic hypoxic respiratory failure #HFpEF exacerbation ? Recently admitted on 06/06/2024 for TACO in the setting of outpatient blood transfusion and HFpEF exacerbation. ? Initial BNP 15,300, 3+ lower extremity pitting edema, and bibasilar pulmonary edema with pleural effusions on chest CT. ? ECHO 06/08/2024 LVEF 55%, severe biatrial dilatation, moderate TR, RVSP 40 to 45 mmHg, moderate reduction in RV function. ? Started IV Bumex 1 mg twice daily. Home regimen Bumex 1 mg daily. ? Continue home Farxiga 10 mg, Imdur. ? Monitor function, electrolytes. Electrolyte replacement protocol ? Cardiology consulted, pending further recommendations. #Acute metabolic encephalopathy #Suspected hospital-acquired pneumonia ? Patient is waxing and waning in mentation, ill-appearing. ? While there is no leukocytosis, given encephalopathy and bilateral groundglass opacities on CT chest, and recent hospitalization in the past week, will treat for hospital-acquired pneumonia. ? Started vancomycin, cefepime. Watch for toxicity given advanced CKD. Levaquin given in the ED. ? Follow-up procalcitonin, CRP. Antibiotics can be discontinued if low suspicion for pneumonia, and if opacities are more likely to be pulmonary edema from acute HFpEF. ? Follow-up sputum, blood cultures. #Chronic GI bleeds #Chronic normocytic anemia ? Patient and daughter state she has had chronic GI bleeds which has been attributed to hemorrhoids. Last colonoscopy a few years ago apparently showed polyps. Apparently follows with GI outpatient. ? On previous admission, hemoglobin 6.5 on day of admission requiring outpatient transfusion, and had bright red blood bowel movement during hospitalization. ? GI performed sigmoidoscopy 06/08/2024 with internal bleeding hemorrhoids banding x3. EGD unremarkable. ? However, daughter states she had a bright red blood per rectum day before admission. Hemoglobin currently stable at 8.5. ? Per my discussion with Dr. Lawton during last admission, he recommended a colonoscopy if patient continued to have bright red blood per rectum. ? At this time, patient is not clinically stable for colonoscopy given tachycard ia 117 and significant volume overload. ? However, will make patient n.p.o. at midnight for GI consultation in the morning if patient is clinically more stable then. #A-fib ? Currently in A-fib with heart rate in 110s. Was not able to take her morning dose of metoprolol tartrate. ? Resume home metoprolol 50 mg twice daily. Continue to monitor heart rate. Continuous telemetry for now. ? Continue Eliquis 2.5 mg twice daily CKD stage IV Closely monitor BMP Creatinine appears to be around baseline of around 2.5. COPD Hypertension Hypothyroidism -Resume home Imdur, levothyroxine, metoprolol ? Atrovent, Xopenex scheduled twice daily.
[2024-06-12 22:25] LABS: C-Reactive Protein 68.6 mg/L (0-4)
[2024-06-12] MEDS: DAPAGLIFLOZIN PROPANEDIOL 10 MG TABLET PO (23:56)
[2024-06-12] MEDS: PATIENT'S OWN HOME MEDICATION (Apixaban [Eliquis] 2.5 mg tablet) 2.5 EACH PO (23:56)
[2024-06-12] MEDS: PANTOPRAZOLE 40MG TABLET 40 MG PO (23:56)
[2024-06-12] MEDS: CEFEPIME HCL 1 GM in 0.9 % SODIUM CHLORIDE 50 ML IV (23:58)
[2024-06-13] VITALS (8 sets, daily range): BP systolic 134–156; BP diastolic 62–99; PULSE 78–123; RESP 16–19; TEMP 36.8–37.3; O2SAT 93–99; BMI 31.7
--- NOTE | 2024-06-13 02:51 | PC.NURSE ---
Tawana from [facility] was contacted regarding a vancomycin consult for the patient.
[2024-06-13] MEDS: VANCOMYCIN CONSULT REQUEST 1 EACH NOTAPPLIC (02:55)
[2024-06-13] MEDS: VANCOMYCIN/WATER FOR INJ (PEG) 1.5 GM/300 ML PIGGYBACK IV (02:55)
--- NOTE | 2024-06-13 04:34 | PC.NURSE ---
Patient appeared to be alert and oriented this shift with occasional periods of short-term memory loss. Patient was able to tell me her name, birthday, and exactly where she was at. Patient is very pleasant and soft-spoken. Patient reported that she continues to have blood in her stools; however, she has not had a bowel movement for this shift. She has a purewick in place; 150 mL of urine was emptied from the canister by me around midnight. Urine was clear and yellow. Patient has remained NPO since midnight. Upon auscultation, patient's lung sounds were diminished and her bowel sounds were active. Patient's heart rhythm and rate has been running irregularly tachycardic and afib on telemetry. Patient's blood pressure has been elevated this shift; other vitals signs have remained stable, and patient tolerates 4 L of oxygen via nasal cannula well with oxygen sats > 90%. Edema (pitting, +3) was observed in her bilateral lower extremities, as well as some milder swelling in both of her arms. Patient has received her scheduled PO medications and IV antibiotics per NOV. Patient has not been able to cough up a sample for a sputum culture this shift. She is currently resting supine in bed and is observed to have eyes closed, respirations even and unlabored, and no apparent distress at this time. Patient was observed to be awake for most of the night. She has not had any other complaints this shift and thus far. Bed alarm is on. Call light within reach.
[2024-06-13 05:15] LABS: HCV Ab Non Reactive (Non Reactive)
[2024-06-13] MEDS: LEVALBUTEROL 1.25MG/3ML NEB 1.25 MG IH ×2 (06:01→18:50)
[2024-06-13] MEDS: IPRATROPIUM BROMIDE 0.5 MG/2.5ML SOLUTION IH ×2 (06:01→18:50)
[2024-06-13 06:51] LABS: Basophils % 0.2 % (0.1-2.0); Eosinophils % 0.1 % (0.1-12.0); Hematocrit 27.5 % (37.0-47.0); Hemoglobin 8.2 g/dL (12.2-16.2); Lymphocytes # 0.4 K/mm3 (0.7-4.5); Lymphocytes % 6.4 % (10-50); Mean Corpuscular HGB Conc 29.9 g/dL (31.8-35.4); Mean Corpuscular Hemoglobin 26.3 pg (27.0-31.2); Mean Corpuscular Volume 87.8 fl (81-99); Mean Platelet Volume 7.8 fl (7.4-10.4); Monocytes # 0.6 K/mm3 (0.1-1.0); Monocytes % 8.3 % (1.7-9.3); Neutrophils # 5.8 K/mm3 (1.8-7.8); Platelet Count 308 K/mm3 (142-424); Red Blood Count 3.13 M/mm3 (4.20-5.40); Red Cell Distribution Width 17.8 % (11.5-17.5); White Blood Count 6.8 K/mm3 (4.8-10.8)
[2024-06-13 06:58] LABS: Albumin Level 3.4 g/dl (3.5-5.0); Chloride 101 mmol/L (98-107); Potassium 4.7 mmoL/L (3.5-5.1); Sodium 135 mmol/L (136-145)
[2024-06-13 07:00] LABS: Blood Urea Nitrogen 39 mg/dl (7-17); Creatinine Clearance Estimated 21 mL/min (50-200); Estimated Glomerular Filt Rate 18 ml/min (>60); GFR (African American) 22 ML/MIN (>60); MANUAL DIFFERENTIAL MANUAL DIFFERENTIAL (MANUAL DIFF)
[2024-06-13 07:01] LABS: Alanine Aminotransferase 15 U/L (12-78); Albumin/Globulin Ratio 1.5 (1.1-1.8); Alkaline Phosphatase 132 U/L (38-126); Anion Gap 9.7 mEq/L (5-15); Aspartate Amino Transferase 18 U/L (14-36); Bilirubin,Total 0.5 mg/dl (0.2-1.3); Calcium 9.3 mg/dl (8.4-10.2); Carbon Dioxide 29 mmol/L (22.0-30.0); Globulin 2.2 g/dL (1.3-3.2); Glucose 113 mg/dl (74-100); Total Protein,Serum 5.6 g/dl (6.3-8.2)
[2024-06-13 07:02] LABS: Magnesium 2.1 mg/dl (1.6-2.3)
[2024-06-13 07:06] LABS: C-Reactive Protein 5.8 mg/L (0-4)
--- NOTE | 2024-06-13 08:10 | EXP.PHA.CONS ---
Pharmacy Consult Date: 06/13/24 Time: 08:11 Referring provider: DR. JACOBSON Reason for Consult:: VANCOMYCIN DOSING Allergies Allergy/AdvReac Type Severity Reaction Status Date / Time cefdinir Allergy Severe Hives Verified 06/06/24 11:23 iodine [IODINE] Allergy Severe S-ANAPHYLAX Verified 06/06/24 11:23 IS Sulfa (Sulfonamide Allergy Severe I-HIVES Verified 06/06/24 11:23 Antibiotics) [SULFA (SULFONAMIDE ANTIBIOTICS)] Penicillins [PENICILLINS] Allergy Intermediate I-RASH Verified 06/06/24 11:23 codeine [CODEINE] Allergy Unknown NA-HALLUCIN Verified 06/06/24 11:23 ATIONS hydrogen peroxide Allergy Unknown Other Verified 06/06/24 11:23 Home Medications ?Medication ?Instructions ?Recorded ?Confirmed ?Type omeprazole 20 mg capsule,delayed 20 mg PO DAILY 12/01/20 06/12/24 History release apixaban 2.5 mg tablet (Eliquis) 2.5 mg PO BID 12/29/22 06/12/24 History levothyroxine 25 mcg tablet 25 mcg PO DAILY 12/29/22 06/12/24 History isosorbide mononitrate 30 mg 30 mg PO DAILY 03/30/24 06/12/24 History tablet,extended release 24 hr paroxetine HCl 20 mg tablet 20 mg PO DAILY 03/30/24 06/12/24 History metoprolol tartrate 50 mg tablet 50 mg PO BID #60 tabs 04/02/24 06/12/24 Rx dapagliflozin propanediol 10 mg 10 mg PO DAILY 30 days #30 tabs 06/09/24 06/12/24 Rx tablet (Farxiga) polyethylene glycol 3350 17 gram 17 g PO DAILY #30 ea 06/09/24 06/12/24 Rx oral powder packet (HealthyLax) acetaminophen 500 mg tablet 500 mg PO Q4H PRN Pain/fever 06/12/24 06/12/24 History (Acetaminophen Extra Strength) cyanocobalamin (vitamin B-12) 1,000 mcg IM MONTHLY 06/12/24 06/12/24 History 1,000 mcg/mL injection solution New Prescriptions to Start Prescriptions: Height: 1.65 m Weight: 86.5 kg Laboratory Results:: Laboratory Results - last 24 hr 06/12/24 05:45: Hepatitis C Antibody Non reactive, HIV 1&2 Antibody Rapid Nonreactive 06/12/24 08:55: Troponin I 0.02 06/12/24 11:44: Lactate 1.0, Troponin I 0.02 06/12/24 21:06: C-Reactive Protein 68.6 H, Procalcitonin 0.130 06/13/24 06:20: WBC 6.8, RBC 3.13 L, Hgb 8.2 L, Hct 27.5 L, MCV 87.8, MCH 26.3 L, MCHC 29.9 L, RDW 17.8 H, Plt Count 308, MPV 7.8, Neut % (Auto) 85.0 H, Lymph % (Auto) 6.4 L, [place] % (Auto) 8.3, Eos % (Auto) 0.1, Baso % (Auto) 0.2, Neut # (Auto) 5.8, Lymph # (Auto) 0.4 L, [place] # (Auto) 0.6, Eos # (Auto) 0.0, Baso # (Auto) 0.0, Sodium 135 L, Potassium 4.7, Chloride 101, Carbon Dioxide 29, Anion Gap 9.7, BUN 39 H, Creatinine 2.50 H, Estimated Creat Clear 21, Estimated GFR 18 L*, Est GFR ( Amer) 22 L, Glucose 113 H, Calcium 9.3, Magnesium 2.1, Total Bilirubin 0.5, AST 18, ALT 15, Alkaline Phosphatase 132 H, C-Reactive Protein 5.8 H D, Total Protein 5.6 L, Albumin 3.4 L, Globulin 2.2, Albumin/Globulin Ratio 1.5 Medical History: Medical History (Updated 06/12/24 @ 06:43 by Jose Medeiros MD) Normal colonoscopy Respiratory failure with hypoxia TIA (transient ischemic attack) Rapid atrial fibrillation Diverticulitis Anemia requiring transfusions Acute hypoxemic respiratory failure Acute on chronic diastolic CHF (congestive heart failure) SIRS (systemic inflammatory response syndrome) Aortic stenosis COPD (chronic obstructive pulmonary disease) with acute bronchitis Hypotensive episode COPD (chronic obstructive pulmonary disease) Hypoxia Subungual hematoma of left ring finger Gangrene of finger of left hand Acquired hypothyroidism Atrial fibrillation CKD (chronic kidney disease) CAD (coronary artery disease) Cellulitis of left ring finger Gastroenteritis Concussion without loss of consciousness Head contusion Facial contusion Congestive heart disease Pleural effusion Chronic anemia Renal insufficiency Anticoagulated on Coumadin Junctional bradycardia Assessment and Plan Assessment and plan all Dx Assessment and Plan for all problems:: Pharmacokinetic dosing service Objective: Patient: Floor: Age: 88 yo Serum creatinine: 2.5 mg/dL Height: 65.0 Inches Weight (kg): 86 Assessment: IBW (kg): 61.50 Dosing wt(kg): 86 Estimated Creatinine clearance (ml/min): 17.8 CRCL method: Cockcroft and Gault using ibw(default). Drug selected: Vancomycin Loading dose (mg): 0 Vd (liters): 68.8 (factor used: 0.8 L/kg) [place] (hr-1): 0.019 Half life (hrs): 36.48 Recommended dose: 1500 mg Interval: 48 hrs Infusion time (hrs): 2.0 Predicted peak (mcg/mL): 35.8 Predicted trough (mcg/mL): 14.94 Total body weight is being used for vancomycin dosing. Recommendations: Give Vancomycin 1500 mg q 48 hrs with an expected Cpeak of 35.8 mcg/ml and an expected Ctrough of 14.94 mcg/ml ----Vanco only - ignore for aminoglycosides----- CLvanco= 1.31 L/hr AUC 0-24 /BERT Data: BERT 0.5 mcg/mL: AUC/BERT: 1145.0 BERT 1.0 mcg/mL: AUC/BERT: 572.5 --------- BERT 1.5 mcg/mL: AUC/BERT: 381.7 BERT 2.0 mcg/mL: AUC/BERT: 286.3
[2024-06-13] MEDS: LEVOTHYROXINE 25MCG (0.025MG) TAB 25 MCG PO (08:38)
[2024-06-13] MEDS: PARoxetine 20MG TABLET 20 MG PO (08:38)
[2024-06-13] MEDS: METOPROLOL TARTRATE 50MG TABLET 50 MG PO ×3 (08:38→20:30)
[2024-06-13] MEDS: ISOSORBIDE MONO 30MG TAB.ER.24H 30 MG PO (08:38)
[2024-06-13] MEDS: DAPAGLIFLOZIN PROPANEDIOL 10 MG TABLET PO (08:38)
[2024-06-13] MEDS: APIXABAN 5MG TABLET 2.5 MG PO ×2 (08:39→20:30)
[2024-06-13] MEDS: MAGNESIUM CITRATE 10OZ BOTTLE 10 OZ PO (08:42)
[2024-06-13] MEDS: BUMETANIDE 1MG/4ML VIAL 1 MG IV ×2 (08:42→15:41)
--- NOTE | 2024-06-13 08:42 | EXP.CARD.CON ---
History of Present Illness History of Present Illness Consult date: 06/13/24 Requesting physician: Lauro Ho Consult reason: atrial fibrillation and known to you Chief complaint: Confusion, SOA, cough Additional Medical History:: 1. Chronic iron deficiency anemia A. Followed by heme-onc for many years. 2. CKD, stage IV 3. Coronary disease A. Three-vessel coronary artery calcifications noted on chest CT, 06/12/2024 4. Atrial fibrillation A. Chronic anticoagulation. 5. Hypothyroidism, acquired 6. Recurrent confusion with chronic white matter ischemic changes noted on CT of the head, 06/2024 7. COPD/[place] Emphysema A. Dilated pulmonary arteries consistent with pulmonary artery hypertension noted on chest CT, 06/12/2024 8. HFpEF A. Recurrent admissions for acute exacerbation dating back to 2019 9. History of malignant hypertension A. Echocardiogram, 06/07/2024, normal LV systolic function, increase in LV wall thickness with IVSD of 1.4 cm. Moderate RV dilation with mild to moderate reduction in RV function. Severe biatrial dilation. Mild MR and AI. Moderate TR. RVSP 40-45 mmHg. History of present illness: Aileen Bassett is a 88-year-old female with a history of HFpEF, TACO, chronic GI bleeds, internal hemorrhoids, A-fib on Eliquis, CKD stage IV, COPD on 2 L baseline, hypertension, hyperlipidemia, hypothyroidism who presented from nursing facility with with confusion, shortness of breath, worsening cough. She was recently discharged from our facility after being treated for TACO, HFpEF exacerbation, and GI bleed. Per daughter, she has been feeling more weak and coughing, with worsening confusion since getting to the nursing facility. At 330 this morning, patient was complaining about not feeling well. Her O2 saturation was in the 70s on 2 L nasal cannula. Improved to 90s with 4 L. Workup in the ED significant for WBC 5.9, Hgb 8.5, creatinine 2.6 near baseline, BNP 92984, troponin 0.[address] unremarkable for acute intracranial ischemic findings. CXR suggestive of right mid to lower airspace disease. Case was discussed with ED provider and decision was made to admit patient for acute on chronic hypoxic respiratory failure. The above per Dr. Ho Pt unable to give meaningful history. Admitted for acute on chronic hypoxic resp failure with possible hospital acquired pneumonia. Cardiology consulted for HFpEF exacerbation and A. fib. PFSH [facility] Disclaimer: The information contained in this section may have been updated after the patient was seen, as this information can be updated by other users. Medical History Normal colonoscopy Respiratory failure with hypoxia TIA (transient ischemic attack) Rapid atrial fibrillation Diverticulitis Anemia requiring transfusions Acute hypoxemic respiratory failure Acute on chronic diastolic CHF (congestive heart failure) SIRS (systemic inflammatory response syndrome) Aortic stenosis COPD (chronic obstructive pulmonary disease) with acute bronchitis Hypotensive episode COPD (chronic obstructive pulmonary disease) Hypoxia Subungual hematoma of left ring finger Gangrene of finger of left hand Acquired hypothyroidism Atrial fibrillation CKD (chronic kidney disease) CAD (coronary artery disease) Cellulitis of left ring finger Gastroenteritis Concussion without loss of consciousness Head contusion Facial contusion Congestive heart disease Pleural effusion Chronic anemia Renal insufficiency Anticoagulated on Coumadin Junctional bradycardia Surgical History Hx of cholecystectomy S/P lumpectomy, left breast Status post total hip replacement, right Family History Other Family history of diabetes mellitus type II Family history of hypertension Social History (Updated 06/12/24 @ 10:41 by Edda Bell RN) Smoking Status: Former smoker tobacco type: cigarettes second hand exposure: No alcohol intake: never counseling given: No substance use type: denies use current occupational status: retired Travel in the last 8 weeks: None household members: none housing: apartment caffeine: Yes Review of Systems Review of Systems Review of systems:: unable to obtain Exam Data for Last 24 hours Vital signs and Labs for Last 24 Hours: Temp Pulse Resp BP Pulse Ox O2 Del Method O2 Flow Rate 98.2 F 110 H 18 142/94 H 93 L Nasal Cannula 4 06/13/24 04:00 06/13/24 06:05 06/13/24 04:00 06/13/24 04:00 06/13/24 06:05 06/13/24 07:00 06/13/24 07:00 FiO2 28 06/12/24 06:15 Laboratory Results - last 24 hr 06/12/24 05:45: Hepatitis C Antibody Non reactive, HIV 1&2 Antibody Rapid Nonreactive 06/12/24 08:55: Troponin I 0.02 06/12/24 11:44: Lactate 1.0, Troponin I 0.02 06/12/24 21:06: C-Reactive Protein 68.6 H, Procalcitonin 0.130 06/13/24 06:20: WBC 6.8, RBC 3.13 L, Hgb 8.2 L, Hct 27.5 L, MCV 87.8, MCH 26.3 L, MCHC 29.9 L, RDW 17.8 H, Plt Count 308, MPV 7.8, Neut % (Auto) 85.0 H, Lymph % (Auto) 6.4 L, [place] % (Auto) 8.3, Eos % (Auto) 0.1, Baso % (Auto) 0.2, Neut # (Auto) 5.8, Lymph # (Auto) 0.4 L, [place] # (Auto) 0.6, Eos # (Auto) 0.0, Baso # (Auto) 0.0, Sodium 135 L, Potassium 4.7, Chloride 101, Carbon Dioxide 29, Anion Gap 9.7, BUN 39 H, Creatinine 2.50 H, Estimated Creat Clear 21, Estimated GFR 18 L*, Est GFR ( Amer) 22 L, Glucose 113 H, Calcium 9.3, Magnesium 2.1, Total Bilirubin 0.5, AST 18, ALT 15, Alkaline Phosphatase 132 H, C-Reactive Protein 5.8 H D, Total Protein 5.6 L, Albumin 3.4 L, Globulin 2.2, Albumin/Globulin Ratio 1.5 I & O for Last 24 hours: Intake & Output 06/10/24 06/11/24 06/12/24 06/13/24 11:59 11:59 11:59 11:59 Intake Total 650 / 650 Output Total 150 / 150 Balance 500 / 500 Weight 189 lb 8 oz 190 lb 11.2 oz Constitutional Constitutional: no acute distress *Routine Respiratory Exam Respiratory: Present decreased breath sounds and crackles *Routine Cardiovascular Exam Cardiovascular: Present murmur and tachycardia *Routine Extremities Exam Extremities: Present edema *Routine Neurological Exam Neurological: Present alert Meds Home Medications and Allergies Home Medications ?Medication ?Instructions ?Recorded ?Confirmed ?Type omeprazole 20 mg capsule,delayed 20 mg PO DAILY 12/01/20 06/12/24 History release apixaban 2.5 mg tablet (Eliquis) 2.5 mg PO BID 12/29/22 06/12/24 History levothyroxine 25 mcg tablet 25 mcg PO DAILY 12/29/22 06/12/24 History isosorbide mononitrate 30 mg 30 mg PO DAILY 03/30/24 06/12/24 History tablet,extended release 24 hr paroxetine HCl 20 mg tablet 20 mg PO DAILY 03/30/24 06/12/24 History metoprolol tartrate 50 mg tablet 50 mg PO BID #60 tabs 04/02/24 06/12/24 Rx dapagliflozin propanediol 10 mg 10 mg PO DAILY 30 days #30 tabs 06/09/24 06/12/24 Rx tablet (Farxiga) polyethylene glycol 3350 17 gram 17 g PO DAILY #30 ea 06/09/24 06/12/24 Rx oral powder packet (HealthyLax) acetaminophen 500 mg tablet 500 mg PO Q4H PRN Pain/fever 06/12/24 06/12/24 History (Acetaminophen Extra Strength) cyanocobalamin (vitamin B-12) 1,000 mcg IM MONTHLY 06/12/24 06/12/24 History 1,000 mcg/mL injection solution New Prescriptions to Start Prescriptions: Allergies Allergy/AdvReac Type Severity Reaction Status Date / Time cefdinir Allergy Severe Hives Verified 06/06/24 11:23 iodine [IODINE] Allergy Severe S-ANAPHYLAX Verified 06/06/24 11:23 IS Sulfa (Sulfonamide Allergy Severe I-HIVES Verified 06/06/24 11:23 Antibiotics) [SULFA (SULFONAMIDE ANTIBIOTICS)] Penicillins [PENICILLINS] Allergy Intermediate I-RASH Verified 06/06/24 11:23 codeine [CODEINE] Allergy Unknown NA-HALLUCIN Verified 06/06/24 11:23 ATIONS hydrogen peroxide Allergy Unknown Other Verified 06/06/24 11:23 Assessment and Plan *Assessment and plan (1) (HFpEF) heart failure with preserved ejection fraction: Status: Acute Qualifiers: Heart failure chronicity: acute on chronic Qualified Code(s): I50.33 - Acute on chronic diastolic (congestive) heart failure Category: Medical Code(s): I50.30 - Unspecified diastolic (congestive) heart failure (2) Generalized weakness: Status: Acute Category: Medical Code(s): R53.1 - Weakness (3) Cough: Status: Acute Qualifiers: Cough type: acute Qualified Code(s): R05.1 - Acute cough Category: Medical Code(s): R05.9 - Cough, unspecified (4) Acute respiratory acidosis: Status: Acute Category: Medical Code(s): J96.02 - Acute respiratory failure with hypercapnia (5) Acidosis, lactic: Status: Acute Category: Medical Code(s): E87.20 - Acidosis, unspecified (6) Atrial fibrillation: Status: Chronic Qualifiers: Atrial fibrillation type: longstanding persistent Qualified Code(s): I48.11 - Longstanding persistent atrial fibrillation Category: Medical Code(s): I48.91 - Unspecified atrial fibrillation (7) CKD (chronic kidney disease): Status: Chronic Qualifiers: Chronic kidney disease stage: stage 4 (severe) Qualified Code(s): N18.4 - Chronic kidney disease, stage 4 (severe) Category: Medical Code(s): N18.9 - Chronic kidney disease, unspecified (8) CAD (coronary artery disease): Status: Chronic Qualifiers: Associated angina: without angina Coronary Disease-Associated Artery/Lesion type: [place] artery [place] vs. transplanted heart: [place] heart Qualified Code(s): I25.10 - Atherosclerotic heart disease of [place] coronary artery without angina pectoris Category: Medical Code(s): I25.10 - Atherosclerotic heart disease of [place] coronary artery without angina pectoris (9) Chronic anemia: Status: Chronic Category: Medical Code(s): D64.9 - Anemia, unspecified (10) CKD (chronic kidney disease) stage 4, GFR 15-29 ml/min: Status: Acute Category: Medical Code(s): N18.4 - Chronic kidney disease, stage 4 (severe) Plan 1. 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 2. Acute on chronic HFpEF -IV diuretic started -proBNP 15,300 (down from 16,700 3 days earlier) -Echo, 06/08, EF 55% with IVSD of 1.4 cm, moderate RV dilation/dysfunction, RVSP 40-45 mm Hg -consider amyloidosis workup 3. CKD, stage IV -Creatinine 2.5 with GFR 18 4. Chronic anemia -Hemoglobin stable at 8.2 -Recent transfusion during hospital stay last week 5. Coronary artery disease -Three-vessel coronary artery disease noted on CT of the chest yesterday -Troponins normal -Continue isosorbide and metoprolol 6. Chronic atrial fibrillation -Continue Eliquis 2.5 mg twice daily and monitoring hemoglobin -Continue metoprolol for rate control 7. Recent GI bleed -s/p colonoscopy with hemorrhoid banding, 06/08, Dr. Lawton 8. Pulmonary nodule, LLL on chest CT this admission -defer to Dr. Rosales 9. DNR Continue IV diuretics Continue eliquis for A. fib with close monitoring of Hgb and stools to look for recurrent GI bleed.
[2024-06-13 12:37] LABS: Hypochromasia 1+; Lymphocytes % 12 % (10-50); Monocytes % 7 % (2-9); Neutrophils % 81 % (42-76); Platelet Estimate Normal; Total Cells Counted 100
[2024-06-13] MEDS: ONDANSETRON 4MG/2ML VIAL 4 MG IV (13:50)
--- NOTE | 2024-06-13 14:36 | PC.NURSE ---
Aox 3 with confusion noted at times, 02-4L nc in the 90's, up with assistance times one, bed alarm active, purewick in place for diuresis, consult to GI, FULL liquid diet, 22g r ac sl.
--- NOTE | 2024-06-13 16:34 | P.PN_ITS ---
Subjective *Date: 06/13/24 *Time: 16:34 Interval history: Patient had bleeding internal hemorrhoids and had hemorrhoidal banding on 06/08 with sigmoidoscopy. She had significant reduction of the GI bleeding and then had some small amount of blood yesterday. She has had no melena or hemato chezia. Exam Data for Last 24 hours Vital signs and Labs for Last 24 Hours: Temp Pulse Resp BP Pulse Ox O2 Del Method O2 Flow Rate 98.5 F 100 H 18 143/99 H 93 L Nasal Cannula 4 06/13/24 12:00 06/13/24 12:00 06/13/24 12:00 06/13/24 12:00 06/13/24 12:00 06/13/24 16:16 06/13/24 16:16 FiO2 28 06/12/24 06:15 Laboratory Results - last 24 hr 06/12/24 05:45: Hepatitis C Antibody Non reactive 06/12/24 21:06: C-Reactive Protein 68.6 H, Procalcitonin 0.130 06/13/24 06:20: WBC 6.8, RBC 3.13 L, Hgb 8.2 L, Hct 27.5 L, MCV 87.8, MCH 26.3 L , MCHC 29.9 L, RDW 17.8 H, Plt Count 308, MPV 7.8, Neut % (Auto) 85.0 H, Lymph % (Auto) 6.4 L, [place] % (Auto) 8.3, Eos % (Auto) 0.1, Baso % (Auto) 0.2, Neut # (Auto) 5.8, Lymph # (Auto) 0.4 L, [place] # (Auto) 0.6, Eos # (Auto) 0.0, Baso # (Auto) 0.0, Total Counted 100, Neutrophils % (Manual) 81 H, Lymphocytes % (Manual) 12, Monocytes % (Manual) 7, Platelet Estimate Normal, Hypochromasia 1+, Sodium 135 L, Potassium 4.7, Chloride 101, Carbon Dioxide 29, Anion Gap 9.7, BUN 39 H, Creatinine 2.50 H, Estimated Creat Clear 21, Estimated GFR 18 L*, Est GFR ( Amer) 22 L, Glucose 113 H, Calcium 9.3, Magnesium 2.1, Total Bilirubin 0.5, AST 18, ALT 15, Alkaline Phosphatase 132 H, C-Reactive Protein 5.8 H D, Total Protein 5.6 L, Albumin 3.4 L, Globulin 2.2, Albumin/Globulin Ratio 1.5 I & O for Last 24 hours: Intake & Output 06/10/24 06/11/24 06/12/24 06/13/24 23:59 23:59 23:59 23:59 Intake Total 360 / 650 290 / 290 Output Total 0 / 150 450 / 450 Balance 360 / 500 -160 / -160 Weight 189 lb 8 oz 190 lb 11.2 oz Microbiology Reports for the Last 24 Hours: Microbiology 06/12/24 10:04 Blood Blood Culture - Preliminary NO GROWTH AFTER 24 HOURS 06/12/24 09:46 Blood Blood Culture - Preliminary NO GROWTH AFTER 24 HOURS Assessment and Plan *Assessment and plan (1) Bleeding internal hemorrhoids: Status: Acute Category: Medical Code(s): K64.8 - Other hemorrhoids Plan 1. Bright red rectal bleeding. She had grade 2-3 internal hemorrhoids which were banded x 3. She had significant reduction in bleeding. Her hemoglobin hematocrit are stable and have not declined. She did have some follow-up bleeding yesterday which is not uncommon. This can be post banding superficial ulcer versus some cryptitis or intermittent bleeding from one of the hemorrhoid columns. There is no indication for any repeat procedure presently. I would recommend that she add bulk (FiberCon) daily and she can use an anti- inflammatory suppository when necessary. Primarily the procedure was to reduce volume of bleeding which is noted.
--- NOTE | 2024-06-13 17:18 | P.EN_ITS ---
Advance care planning note: Active diagnosis: Stage IV-V kidney disease, heart failure preserved ejection fraction, acute on chronic anemia, progressive weakness and decline, atrial fibrillation, need for continued anticoagulation. New oxygen requirement. The patient's active diagnoses are of sufficient risk that focused discussion on advanced care planning is indicated in order to allow the patient to thoughtfully consider personal goals of care; and, if situations arise that prevent the ability to personally give input, to ensure appropriate representation of their personal desires through documentation or informed surrogate decision makers. Discussion: Persons present and participating in discussion: Myself, daughter Lacy, patient Discussion: Discussed patient's continued decline. She is recently transition to a residential as she is no longer able to care for herself at home. She continues to have worsening organ function with heart failure and kidney failure which make it difficult to manage her fluid status. Discussed goals of care if patient's condition gets worse. Daughter and patient have not had extensive discussions about goals of care and what they would want if condition continues to decline. Her renal failure has been going on for years. Strong concern that patient's decline will continue over the coming months to year. She is DNR at this time. Discussed what may happen if her kidney function worsens, daughter inquired about dialysis. Concern patient is not a very good candidate for dialysis in light of her other comorbidities and declining functional status. Strongly encouraged further goals of care discussion among patient and her mother. Questions answered. Time spent: Total time spent [id number] in education and discussion directly related to advance care plannin minutes Calderon Rosales 06/13/2024
--- NOTE | 2024-06-13 17:18 | EXP.ACUTE.PN ---
Subjective *Date: 06/13/24 *Time: 21:02 Interval history: Patient showing some marginal improvement today. On 4 L nasal cannula oxygen. No nausea or vomiting on rounds but did complain of some nausea after taking mag citrate. Has been afebrile Medical Exam Vital signs and Labs for Last 24 Hours: Vital Signs Temp Pulse Pulse Resp BP Pulse Ox O2 Del Method 06/13/24 16:16 Nasal Cannula 06/13/24 16:00 99.2 F 110 H 18 145/79 H 93 L Nasal Cannula 06/13/24 14:21 Nasal Cannula 06/13/24 12:00 110 H 06/13/24 12:00 98.5 F 100 H 18 143/99 H 93 L Nasal Cannula 06/13/24 12:00 Nasal Cannula 06/13/24 10:19 Nasal Cannula 06/13/24 09:00 Nasal Cannula 06/13/24 08:00 120 H 06/13/24 08:00 99.1 F 83 19 144/72 H 95 Nasal Cannula 06/13/24 08:00 Nasal Cannula 06/13/24 07:00 Nasal Cannula 06/13/24 06:05 110 H 06/13/24 06:05 123 H 06/13/24 06:05 93 L Nasal Cannula 06/13/24 05:00 Nasal Cannula 06/13/24 04:00 110 H 06/13/24 04:00 98.2 F 87 18 142/94 H 99 Nasal Cannula 06/13/24 03:00 Nasal Cannula 06/13/24 01:00 Nasal Cannula 06/13/24 00:00 120 H 06/13/24 00:00 98.4 F 116 H 18 156/81 H 95 Nasal Cannula 06/12/24 23:00 Nasal Cannula 06/12/24 22:30 95 Nasal Cannula 06/12/24 21:00 Nasal Cannula 06/12/24 20:00 126 H 18 96 Nasal Cannula 06/12/24 20:00 99.7 F H 126 H 18 140/93 H 96 Nasal Cannula 06/12/24 18:12 Nasal Cannula O2 Flow Rate 06/13/24 16:16 4 06/13/24 16:00 3 06/13/24 14:21 4 06/13/24 12:00 06/13/24 12:00 4 06/13/24 12:00 4 06/13/24 10:19 4 06/13/24 09:00 4 06/13/24 08:00 06/13/24 08:00 4 06/13/24 08:00 4 06/13/24 07:00 4 06/13/24 06:05 06/13/24 06:05 06/13/24 06:05 4 06/13/24 05:00 4 06/13/24 04:00 06/13/24 04:00 4 06/13/24 03:00 4 06/13/24 01:00 4 06/13/24 00:00 06/13/24 00:00 4 06/12/24 23:00 4 06/12/24 22:30 4 06/12/24 21:00 4 06/12/24 20:00 4 06/12/24 20:00 4 06/12/24 18:12 4 Intake and Output 06/13/24 06/13/24 06/13/24 07:59 15:59 23:59 Intake Total 290 / 290 Output Total 150 / 450 300 / 450 Balance 140 / -160 -300 / -160 Intake: Intake, Oral Amount 240 / 240 Infusion Intake 50 / 50 Cefepime HCl 1 gm In 0.9 % 50 / 50 Sodium Chloride 50 ml @ 100 mls /hr IV Q24H [facility] Rx#:[id number] Output: Output, Urine Amount 150 / 450 300 / 450 Other: Number of Unmeasured Voids 1 1 Number of Bowel Movements 1 Weight 86.5 kg 86.5 kg Patient Weight 06/13/24 23:59 Weight 86.5 kg Laboratory Results - last 24 hr 06/12/24 05:45: Hepatitis C Antibody Non reactive 06/12/24 21:06: C-Reactive Protein 68.6 H, Procalcitonin 0.130 06/13/24 06:20: WBC 6.8, RBC 3.13 L, Hgb 8.2 L, Hct 27.5 L, MCV 87.8, MCH 26.3 L, MCHC 29.9 L, RDW 17.8 H, Plt Count 308, MPV 7.8, Neut % (Auto) 85.0 H, Lymph % (Auto) 6.4 L, [place] % (Auto) 8.3, Eos % (Auto) 0.1, Baso % (Auto) 0.2, Neut # (Auto) 5.8, Lymph # (Auto) 0.4 L, [place] # (Auto) 0.6, Eos # (Auto) 0.0, Baso # (Auto) 0.0, Total Counted 100, Neutrophils % (Manual) 81 H, Lymphocytes % (Manual) 12, Monocytes % (Manual) 7, Platelet Estimate Normal, Hypochromasia 1+, Sodium 135 L, Potassium 4.7, Chloride 101, Carbon Dioxide 29, Anion Gap 9.7, BUN 39 H, Creatinine 2.50 H, Estimated Creat Clear 21, Estimated GFR 18 L*, Est GFR ( Amer) 22 L, Glucose 113 H, Calcium 9.3, Magnesium 2.1, Total Bilirubin 0.5, AST 18, ALT 15, Alkaline Phosphatase 132 H, C-Reactive Protein 5.8 H D, Total Protein 5.6 L, Albumin 3.4 L, Globulin 2.2, Albumin/Globulin Ratio 1.5 I & O for Labs for Last 24 Hours: Intake & Output 06/10/24 06/11/24 06/12/24 06/13/24 23:59 23:59 23:59 23:59 Intake Total 360 / 650 290 / 290 Output Total 0 / 150 450 / 450 Balance 360 / 500 -160 / -160 Weight 85.956 kg 86.5 kg Microbiology Reports for the Last 24 Hours: Microbiology 06/12/24 10:04 Blood Blood Culture - Preliminary NO GROWTH AFTER 24 HOURS 06/12/24 09:46 Blood Blood Culture - Preliminary NO GROWTH AFTER 24 HOURS Constitutional: Present no acute distress, obese, chronically ill appearing and cooperative Head: Present atraumatic and normocephalic ENT: Present normal exam Respiratory: Present prolonged expiratory phase, distant breath sounds and diminished air movement; Absent rhonchi, wheezes or crackles Cardiac: Present Reg Rate and Rhythm GI: Present soft; Absent distention Extremities: Present edema (2+ to knees) Skin: Present intact Neuro: Present alert, awake and moves all extremities Comment:: Oriented to self and place. Not back to baseline per daughter at bedside. Assessment and Plan *Assessment and plan (1) (HFpEF) heart failure with preserved ejection fraction: Status: Acute Qualifiers: Heart failure chronicity: acute on chronic Qualified Code(s): I50.33 - Acute on chronic diastolic (congestive) heart failure Category: Medical Code(s): I50.30 - Unspecified diastolic (congestive) heart failure (2) GIB (gastrointestinal bleeding): Status: Acute Category: Medical Code(s): K92.2 - Gastrointestinal hemorrhage, unspecified (3) Atrial fibrillation: Status: Chronic Qualifiers: Atrial fibrillation type: longstanding persistent Qualified Code(s): I48.11 - Longstanding persistent atrial fibrillation Category: Medical Code(s): I48.91 - Unspecified atrial fibrillation (4) Chronic anemia: Status: Chronic Category: Medical Code(s): D64.9 - Anemia, unspecified Plan Aileen Bassett is a 88-year-old female with a history of HFpEF, TACO, chronic GI bleeds, internal hemorrhoids, A-fib on Eliquis, CKD stage IV, COPD on 2 L baseline, hypertension, hyperlipidemia, hypothyroidism who presented from nursing facility with with confusion, shortness of breath, worsening cough. She was recently discharged from our facility 06/09/2024 after being treated for TACO, HFpEF exacerbation, and GI bleed. Per daughter, she has been feeling more weak and coughing, with worsening confusion since getting to the nursing facility. At 330 this morning, patient was complaining about not feeling well. Her O2 saturation was in the 70s on 2 L nasal cannula. Improved to 90s with 4 L. Workup in the ED significant for WBC 5.9, Hgb 8.5, creatinine 2.6 near baseline, BNP 18347, troponin 0.[address] unremarkable for acute intracranial ischemic findings. CXR suggestive of right mid to lower airspace disease. Case was discussed with ED provider and decision was made to admit patient for acute on chronic hypoxic respiratory failure. Showing slow improvement. Continues to require patient management for continued diuresis. Problems addressed as follows: #Acute on chronic hypoxic respiratory failure #HFpEF exacerbation ? Recently admitted on 06/06/2024 for TACO in the setting of outpatient blood transfusion and HFpEF exacerbation. ? Initial BNP 15,300, 3+ lower extremity pitting edema, and bibasilar pulmonary edema with pleural effusions on chest CT. ? ECHO 06/08/2024 LVEF 55%, severe biatrial dilatation, moderate TR, RVSP 40 to 45 mmHg, moderate reduction in RV function. ? Started IV Bumex 1 mg twice daily. Having response, -1.5 L since admission. Kidney function remained stable with BUN 39, creatinine 2.5. Repeat CBC, CMP, magnesium ordered for the morning. ? Continue home Farxiga 10 mg, Imdur. ? Monitor function, electrolytes. Electrolyte replacement protocol ? Cardiology consulted, discussed case, recommends continued diuresis. #Acute metabolic encephalopathy #Suspected hospital-acquired pneumonia ? Patient is waxing and waning in mentation, ill-appearing. ? While there is no leukocytosis, given encephalopathy and bilateral groundglass opacities on CT chest, and recent hospitalization in the past week, will treat for hospital-acquired pneumonia. ? Discontinued vancomycin and cefepime. Continue levofloxacin for at least 48 hours. Reevaluate in the morning. - Procalcitonin normal at 0.13 CRP improving at 5.8. 68 on admission ? Follow-up sputum, blood cultures. #Chronic GI bleeds #Chronic normocytic anemia ? Patient and daughter state she has had chronic GI bleeds which has been attributed to hemorrhoids. Last colonoscopy a few years ago apparently showed polyps. Apparently follows with GI outpatient. ? On previous admission, hemoglobin 6.5 on day of admission requiring outpatient transfusion, and had bright red blood bowel movement during hospitalization. ? GI performed sigmoidoscopy 06/08/2024 with internal bleeding hemorrhoids banding x3. EGD unremarkable. ? However, daughter states she had a bright red blood per rectum day before admission. Hemoglobin currently stable at 8.5 on a admission, 8.2 this morning. ? Per my discussion with Dr. Lawton during last admission, he recommended a colonoscopy if patient continued to have bright red blood per rectum. -Discussed case with GI, no plan for intervention at this time. Further management as an outpatient. #A-fib ? Currently in A-fib, heart rate improving ? Resume home metoprolol 50 mg twice daily. Continue to monitor heart rate. Continuous telemetry for now. ? Continue Eliquis 2.5 mg twice daily CKD stage IV Closely monitor BMP Creatinine appears to be around baseline of around 2.5. COPD Hypertension Hypothyroidism -Resume home Imdur, levothyroxine, metoprolol ? Atrovent, Xopenex scheduled twice daily. DNR/DNI Resume diet
[2024-06-13] MEDS: PANTOPRAZOLE 40MG TABLET 40 MG PO (20:30)
[2024-06-14] VITALS (10 sets, daily range): BP systolic 102–150; BP diastolic 52–88; PULSE 75–117; RESP 16–18; TEMP 36.4–37; O2SAT 4–97; BMI 31.6
--- NOTE | 2024-06-14 04:38 | PC.NURSE ---
Patient is alert and oriented, but was noticed to have some periods of sporadic confusion and short-term memory loss. Patient asked staff at one point during the night to confirm for her that she is in the hospital. She also has voiced concerns about whether it is ok for her to pee with the purewick on. Her urine output has been emptied and documented accordingly throughout the shift. Patient was observed to have eyes closed, respirations even and unlabored on 4 L of oxygen via nasal cannula, and no apparent distress noted through the majority of the night. Upon auscultation this shift, fine crackles with diminished lung sounds were heard, and her bowel sounds were very active. She reports having a dry, nonproductive cough. She has also had multiple, moderately loose and liquified bowel movements without any noticeable blood. She has not reported having any kind of pain, discomfort, dizziness or nausea. Moderate pitting edema was observed in her bilateral lower extremities; she also has a little bit of swelling in both of her arms. Patient received her scheduled PO medications per NOV. She has remained on a full liquid diet for this shift. Heart rate (afib on telemetry) and blood pressure remained elevated this shift as well; other vital signs quite stable. At this time, the patient does not have any further complaints. She is currently resting supine in bed. Bed alarm on. Call light within reach.
[2024-06-14] MEDS: LEVALBUTEROL 1.25MG/3ML NEB 1.25 MG IH ×2 (05:58→18:38)
[2024-06-14] MEDS: IPRATROPIUM BROMIDE 0.5 MG/2.5ML SOLUTION IH ×2 (05:58→18:38)
[2024-06-14] MEDS: LEVOTHYROXINE 25MCG (0.025MG) TAB 25 MCG PO (06:37)
[2024-06-14 06:45] LABS: Basophils % 0.4 % (0.1-2.0); Eosinophils # 0.2 K/mm3 (0.0-0.4); Eosinophils % 2.8 % (0.1-12.0); Hematocrit 28.6 % (37.0-47.0); Hemoglobin 8.8 g/dL (12.2-16.2); Lymphocytes # 0.5 K/mm3 (0.7-4.5); Lymphocytes % 6.5 % (10-50); Mean Corpuscular HGB Conc 30.8 g/dL (31.8-35.4); Mean Corpuscular Hemoglobin 27.1 pg (27.0-31.2); Mean Corpuscular Volume 88.1 fl (81-99); Mean Platelet Volume 7.9 fl (7.4-10.4); Monocytes # 0.7 K/mm3 (0.1-1.0); Monocytes % 9.2 % (1.7-9.3); Neutrophils # 5.8 K/mm3 (1.8-7.8); Neutrophils % 81.1 % (37.0-80.0); Platelet Count 287 K/mm3 (142-424); Red Blood Count 3.24 M/mm3 (4.20-5.40); Red Cell Distribution Width 17.8 % (11.5-17.5); White Blood Count 7.1 K/mm3 (4.8-10.8)
[2024-06-14 06:46] LABS: Albumin Level 3.5 g/dl (3.5-5.0); Chloride 103 mmol/L (98-107)
[2024-06-14 06:47] LABS: Potassium 4.9 mmoL/L (3.5-5.1); Sodium 139 mmol/L (136-145)
[2024-06-14 06:49] LABS: Alanine Aminotransferase 11 U/L (12-78); Albumin/Globulin Ratio 1.6 (1.1-1.8); Anion Gap 11.9 mEq/L (5-15); Aspartate Amino Transferase 52 U/L (14-36); Blood Urea Nitrogen 42 mg/dl (7-17); Carbon Dioxide 29 mmol/L (22.0-30.0); Creatinine Clearance Estimated 21 mL/min (50-200); Estimated Glomerular Filt Rate 18 ml/min (>60); GFR (African American) 22 ML/MIN (>60); Globulin 2.2 g/dL (1.3-3.2); Total Protein,Serum 5.7 g/dl (6.3-8.2)
[2024-06-14 06:50] LABS: Alkaline Phosphatase 157 U/L (38-126); Bilirubin,Total 0.7 mg/dl (0.2-1.3); Calcium 9.6 mg/dl (8.4-10.2); Glucose 97 mg/dl (74-100); Magnesium 2.6 mg/dl (1.6-2.3)
--- NOTE | 2024-06-14 08:14 | EXP.CARD.PN ---
Subjective Subjective Date: 06/14/24 Time: 08:17 Principal diagnosis: CHF, anemia, CKD Interval history: 88 yo WF in Bed in NAD. Denies chest pain Relates diarrhea Exam Data for Last 24 hours Vital signs and Labs for Last 24 Hours: Temp Pulse Resp BP Pulse Ox O2 Del Method O2 Flow Rate 98.6 F 106 H 16 150/83 H 92 L Nasal Cannula 4 06/14/24 04:00 06/14/24 05:58 06/14/24 04:00 06/14/24 04:00 06/14/24 05:58 06/14/24 07:00 06/14/24 07:00 FiO2 28 06/12/24 06:15 Laboratory Results - last 24 hr 06/13/24 06:20: Total Counted 100, Neutrophils % (Manual) 81 H, Lymphocytes % (Manual) 12, Monocytes % (Manual) 7, Platelet Estimate Normal, Hypochromasia 1+ 06/14/24 06:07: WBC 7.1, RBC 3.24 L, Hgb 8.8 L, Hct 28.6 L, MCV 88.1, MCH 27.1, MCHC 30.8 L, RDW 17.8 H, Plt Count 287, MPV 7.9, Neut % (Auto) 81.1 H, Lymph % (Auto) 6.5 L, [place] % (Auto) 9.2, Eos % (Auto) 2.8, Baso % (Auto) 0.4, Neut # (Auto) 5.8, Lymph # (Auto) 0.5 L, [place] # (Auto) 0.7, Eos # (Auto) 0.2, Baso # (Auto) 0.0, Sodium 139, Potassium 4.9, Chloride 103, Carbon Dioxide 29, Anion Gap 11.9, BUN 42 H, Creatinine 2.50 H, Estimated Creat Clear 21, Estimated GFR 18 L*, Est GFR ( Amer) 22 L, Glucose 97, Calcium 9.6, Magnesium 2.6 H D, Total Bilirubin 0.7, AST 52 H D, ALT 11 L D, Alkaline Phosphatase 157 H, Total Protein 5.7 L, Albumin 3.5, Globulin 2.2, Albumin/Globulin Ratio 1.6 I & O for Last 24 hours: Intake & Output 06/11/24 06/12/24 06/13/24 06/14/24 11:59 11:59 11:59 11:59 Intake Total 650 / 650 150 / 150 Output Total 450 / 450 2009 Balance 200 / 200 -1860 / -1860 Weight 189 lb 8 oz 190 lb 11.2 oz 190 lb Microbiology Reports for the Last 24 Hours: Microbiology 06/12/24 10:04 Blood Blood Culture - Preliminary NO GROWTH AFTER 24 HOURS 06/12/24 09:46 Blood Blood Culture - Preliminary NO GROWTH AFTER 24 HOURS Constitutional Constitutional: no acute distress *Routine Respiratory Exam Respiratory: Present diminished air movement; Absent wheezes *Routine Cardiovascular Exam Cardiovascular: Present tachycardia and irregularly irregular *Routine Neurological Exam Neurological: Present alert Progress Note: A&P Assessment and plan (1) (HFpEF) heart failure with preserved ejection fraction: Status: Acute (2) GIB (gastrointestinal bleeding): Status: Acute (3) Atrial fibrillation: Status: Chronic (4) Chronic anemia: Status: Chronic Assessment and Plan Assessment and Plan for All Diagnoses:: 1. 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 2. Acute on chronic HFpEF -IV bumex 1 mg BID -on Farxiga -proBNP 15,300 (down from 16,700 3 days earlier and 64756 6 days earlier) -Echo, 06/08, EF 55% with IVSD of 1.4 cm, moderate RV dilation/dysfunction, RVSP 40-45 mm Hg 3. CKD, stage IV -Creatinine 2.5 with GFR 18 4. Chronic anemia -Hemoglobin stable at 8.8 -Recent transfusion during hospital stay last week 5. Coronary artery disease -Three-vessel coronary artery disease noted on CT of the chest yesterday -Troponins normal -Continue isosorbide and metoprolol 6. Chronic atrial fibrillation -Continue Eliquis 2.5 mg twice daily and monitoring hemoglobin -Continue metoprolol for rate control 7. Recent GI bleed -s/p colonoscopy with hemorrhoid banding, 06/08, Dr. Lawton -no plans for repeat endoscopy this admission 8. Pulmonary nodule, LLL on chest CT this admission -defer to Dr. Rosales 9. DNR Metoprolol increased to 100 mg BID for better BP and HR control. noted to have some BRBPR in stool but less since the hemorrhoidal banding. No plans for repeat endoscopy at this time. Hgb stable at 8.8 but if she begins to drop Hgb then would discontinue apixaban and re-assess. Diuresing well on increased bumex dose with net output of 1.5 liters
[2024-06-14] MEDS: DAPAGLIFLOZIN PROPANEDIOL 10 MG TABLET PO (08:20)
[2024-06-14] MEDS: LEVOFLOXACIN/D5W 750 MG/150 ML 750 MG/150 ML PIGGYBACK 100 MG IV (08:21)
[2024-06-14] MEDS: APIXABAN 5MG TABLET 2.5 MG PO ×2 (08:21→20:31)
[2024-06-14] MEDS: BUMETANIDE 1MG/4ML VIAL 1 MG IV ×2 (08:21→17:23)
[2024-06-14] MEDS: PARoxetine 20MG TABLET 20 MG PO (08:21)
[2024-06-14] MEDS: ISOSORBIDE MONO 30MG TAB.ER.24H 30 MG PO (08:21)
[2024-06-14] MEDS: SODIUM CHLORIDE 3% 15ML NEB 3 ML IH (09:29)
[2024-06-14] MEDS: METOPROLOL TARTRATE 50MG TABLET 100 MG PO ×2 (10:40→20:31)
--- NOTE | 2024-06-14 14:28 | EXP.ACUTE.PN ---
Subjective *Date: 06/14/24 *Time: 14:28 Interval history: Patient more fatigued today. Diuresing well. -2 L in the past 24 hours. Kidney function stable. No nausea or vomiting. Poor p.o. intake today. Does not want to get out of bed. Says tomorrow. Voice more weak. Oxygen weaned to 2 L Medical Exam Vital signs and Labs for Last 24 Hours: Vital Signs Temp Pulse Pulse Resp BP Pulse Ox O2 Del Method 06/14/24 12:00 98.2 F 75 17 102/57 L 92 L Nasal Cannula 06/14/24 09:31 80 18 06/14/24 08:00 97.5 F L 108 H 17 127/82 97 06/14/24 08:00 110 H 06/14/24 07:00 Nasal Cannula 06/14/24 05:58 106 H 06/14/24 05:58 111 H 06/14/24 05:58 92 L Nasal Cannula 06/14/24 05:00 Nasal Cannula 06/14/24 04:00 110 H 06/14/24 04:00 98.6 F 114 H 16 150/83 H 97 Nasal Cannula 06/14/24 03:00 Nasal Cannula 06/14/24 01:00 Nasal Cannula 06/14/24 00:00 100 H 06/14/24 00:00 97.9 F 117 H 16 146/88 H 97 Nasal Cannula 06/13/24 23:00 Nasal Cannula 06/13/24 21:00 Nasal Cannula 06/13/24 20:00 104 H 16 97 Nasal Cannula 06/13/24 20:00 110 H 06/13/24 20:00 98.8 F 104 H 16 134/62 97 Nasal Cannula 06/13/24 18:50 78 06/13/24 18:50 88 06/13/24 18:50 95 Nasal Cannula 06/13/24 17:44 Nasal Cannula 06/13/24 16:16 Nasal Cannula 06/13/24 16:00 120 H 06/13/24 16:00 99.2 F 110 H 18 145/79 H 93 L Nasal Cannula O2 Flow Rate 06/14/24 12:00 06/14/24 09:31 06/14/24 08:00 06/14/24 08:00 06/14/24 07:00 4 06/14/24 05:58 06/14/24 05:58 06/14/24 05:58 4 06/14/24 05:00 4 06/14/24 04:00 06/14/24 04:00 4 06/14/24 03:00 4 06/14/24 01:00 4 06/14/24 00:00 06/14/24 00:00 4 06/13/24 23:00 4 06/13/24 21:00 4 06/13/24 20:00 4 06/13/24 20:00 06/13/24 20:00 4 06/13/24 18:50 06/13/24 18:50 06/13/24 18:50 4 06/13/24 17:44 4 06/13/24 16:16 4 06/13/24 16:00 06/13/24 16:00 3 Intake and Output 06/13/24 06/14/24 06/14/24 23:59 07:59 15:59 Intake Total 0 / 440 150 / 270 120 / 270 Output Total 1300 / 2160 710 / 860 150 / 860 Balance -1300 / -1720 -560 / -590 -30 / -590 Intake: Intake, Oral Amount 0 / 390 150 / 270 120 / 270 Output: Output, Urine Amount 1300 / 2160 710 / 860 150 / 860 Other: Number of Unmeasured Voids 0 0 Number of Bowel Movements 1 1 Weight 86.183 kg 86.1 kg Patient Weight 06/14/24 23:59 Weight 86.1 kg Laboratory Results - last 24 hr 06/14/24 06:07: WBC 7.1, RBC 3.24 L, Hgb 8.8 L, Hct 28.6 L, MCV 88.1, MCH 27.1, MCHC 30.8 L, RDW 17.8 H, Plt Count 287, MPV 7.9, Neut % (Auto) 81.1 H, Lymph % (Auto) 6.5 L, [place] % (Auto) 9.2, Eos % (Auto) 2.8, Baso % (Auto) 0.4, Neut # (Auto) 5.8, Lymph # (Auto) 0.5 L, [place] # (Auto) 0.7, Eos # (Auto) 0.2, Baso # (Auto) 0.0, Sodium 139, Potassium 4.9, Chloride 103, Carbon Dioxide 29, Anion Gap 11.9, BUN 42 H, Creatinine 2.50 H, Estimated Creat Clear 21, Estimated GFR 18 L*, Est GFR ( Amer) 22 L, Glucose 97, Calcium 9.6, Magnesium 2.6 H D, Total Bilirubin 0.7, AST 52 H D, ALT 11 L D, Alkaline Phosphatase 157 H, Total Protein 5.7 L, Albumin 3.5, Globulin 2.2, Albumin/Globulin Ratio 1.6 I & O for Labs for Last 24 Hours: Intake & Output 06/11/24 06/12/24 06/13/24 06/14/24 23:59 23:59 23:59 23:59 Intake Total 360 / 650 290 / 440 270 / 270 Output Total 0 / 150 1750 / 2160 860 / 860 Balance 360 / 500 -1460 / -1720 -590 / -590 Weight 85.956 kg 86.5 kg 86.1 kg Microbiology Reports for the Last 24 Hours: Microbiology 06/12/24 10:04 Blood Blood Culture - Preliminary NO GROWTH AFTER 48 HOURS 06/12/24 09:46 Blood Blood Culture - Preliminary NO GROWTH AFTER 48 HOURS Constitutional: Present no acute distress, obese, chronically ill appearing and cooperative Comment:: More fatigued today Head: Present atraumatic and normocephalic ENT: Present normal exam Respiratory: Present prolonged expiratory phase, distant breath sounds and diminished air movement; Absent rhonchi, wheezes or crackles Cardiac: Present Reg Rate and Rhythm GI: Present soft; Absent distention Extremities: Present edema (2+ to knees) Skin: Present intact Neuro: Present alert, awake and moves all extremities Comment:: Oriented to self and place. Appears more fatigued, not wanting to get out of bed. States she is tired. Assessment and Plan *Assessment and plan (1) (HFpEF) heart failure with preserved ejection fraction: Status: Acute Qualifiers: Heart failure chronicity: acute on chronic Qualified Code(s): I50.33 - Acute on chronic diastolic (congestive) heart failure Category: Medical Code(s): I50.30 - Unspecified diastolic (congestive) heart failure (2) GIB (gastrointestinal bleeding): Status: Acute Category: Medical Code(s): K92.2 - Gastrointestinal hemorrhage, unspecified (3) Atrial fibrillation: Status: Chronic Qualifiers: Atrial fibrillation type: longstanding persistent Qualified Code(s): I48.11 - Longstanding persistent atrial fibrillation Category: Medical Code(s): I48.91 - Unspecified atrial fibrillation (4) Chronic anemia: Status: Chronic Category: Medical Code(s): D64.9 - Anemia, unspecified (5) CKD (chronic kidney disease) stage 4, GFR 15-29 ml/min: Status: Acute Category: Medical Code(s): N18.4 - Chronic kidney disease, stage 4 (severe) (6) Bleeding internal hemorrhoids: Status: Acute Category: Medical Code(s): K64.8 - Other hemorrhoids (7) Generalized weakness: Status: Acute Category: Medical Code(s): R53.1 - Weakness (8) Acquired hypothyroidism: Status: Chronic Category: Medical Code(s): E03.9 - Hypothyroidism, unspecified Plan Aileen Bassett is a 88-year-old female with a history of HFpEF, TACO, chronic GI bleeds, internal hemorrhoids, A-fib on Eliquis, CKD stage IV, COPD on 2 L baseline, hypertension, hyperlipidemia, hypothyroidism who presented from nursing facility with with confusion, shortness of breath, worsening cough. She was recently discharged from our facility 06/09/2024 after being treated for TACO, HFpEF exacerbation, and GI bleed. Per daughter, she has been feeling more weak and coughing, with worsening confusion since getting to the nursing facility. At 330 this morning, patient was complaining about not feeling well. Her O2 saturation was in the 70s on 2 L nasal cannula. Improved to 90s with 4 L. Workup in the ED significant for WBC 5.9, Hgb 8.5, creatinine 2.6 near baseline, BNP 93241, troponin 0.[address] unremarkable for acute intracranial ischemic findings. CXR suggestive of right mid to lower airspace disease. Case was discussed with ED provider and decision was made to admit patient for acute on chronic hypoxic respiratory failure. Patient appears to have slid back a bit today. More fatigued. Responding well to diuresis and weaning oxygen however. Concern for her change today. Continues to require inpatient management. Problems addressed as follows: #Acute on chronic hypoxic respiratory failure #HFpEF exacerbation ? Recently admitted on 06/06/2024 for TACO in the setting of outpatient blood transfusion and HFpEF exacerbation. ? Initial BNP 15,300, 3+ lower extremity pitting edema, and bibasilar pulmonary edema with pleural effusions on chest CT. ? ECHO 06/08/2024 LVEF 55%, severe biatrial dilatation, moderate TR, RVSP 40 to 45 mmHg, moderate reduction in RV function. ? Continue IV Bumex 1 mg twice daily. -2 L in the past 24 hours. Kidney function remained stable with BUN 42, creatinine 2.5. Repeat CBC, CMP, magnesium ordered for the morning. ? Continue home Farxiga 10 mg, Imdur. ? Monitor function, electrolytes. Electrolyte replacement protocol ? Cardiology consulted, discussed case, continues to recommend diuresis. #Acute metabolic encephalopathy #Suspected hospital-acquired pneumonia ? Patient is waxing and waning in mentation, ill-appearing. ? While there is no leukocytosis, given encephalopathy and bilateral groundglass opacities on CT chest, and recent hospitalization in the past week, will treat for hospital-acquired pneumonia. ? Continue levofloxacin for total of 5 days ? Follow-up sputum, blood cultures. #Chronic GI bleeds #Chronic normocytic anemia ? Patient and daughter state she has had chronic GI bleeds which has been attributed to hemorrhoids. Last colonoscopy a few years ago apparently showed polyps. Apparently follows with GI outpatient. ? On previous admission, hemoglobin 6.5 on day of admission requiring outpatient transfusion, and had bright red blood bowel movement during hospitalization. ? GI performed sigmoidoscopy 06/08/2024 with internal bleeding hemorrhoids banding x3. EGD unremarkable. ? However, daughter states she had a bright red blood per rectum day before admission. Hemoglobin currently stable at 8.8 ? Per my discussion with Dr. Lawton during last admission, he recommended a colonoscopy if patient continued to have bright red blood per rectum. - Discussed case with GI, no plan for intervention at this time. Further management as an outpatient. #A-fib ? Currently in A-fib, heart rate improving ? metoprolol 50 mg twice daily. Continue to monitor heart rate. Continuous telemetry for now. ? Continue Eliquis 2.5 mg twice daily CKD stage IV Closely monitor BMP Creatinine appears to be around baseline of around 2.5. COPD Hypertension Hypothyroidism -Resume home Imdur, levothyroxine, metoprolol ? Atrovent, Xopenex scheduled twice daily. DNR/DNI Resume diet
--- NOTE | 2024-06-14 19:13 | PC.NURSE ---
pt is currently on 2 LNC and tolerating well. o2 is 93%. pt seems weaker this shift but states she feels better this shift. call light within reach, no further requests at this time
[2024-06-14 19:26] LABS: Occult Blood,Stool Negative (Negative)
[2024-06-14] MEDS: VANCOMYCIN HCL 1,500 MG in 0.9 % SODIUM CHLORIDE 250 ML 125 MG IV (20:30)
[2024-06-14] MEDS: PANTOPRAZOLE 40MG TABLET 40 MG PO (20:31)
[2024-06-15] VITALS: BP 133/82; PULSE 110; RESP 18; TEMP 37.1; O2SAT 92
[2024-06-15] MEDS: LEVALBUTEROL 1.25MG/3ML NEB 1.25 MG IH ×2 (02:18→05:53)
[2024-06-15 02:19] VITALS: PULSE 125; PULSE 126
[2024-06-15] MEDS: IPRATROPIUM BROMIDE 0.5 MG/2.5ML SOLUTION IH ×2 (02:19→05:53)
--- NOTE | 2024-06-15 02:21 | PC.NURSE ---
Patient requested to get up to [facility] to void. After returning to bed patient c/o being SOA and was anxious. Wheezing noted with auscultation. Tachycardic 110-130. 02 sat 86% on 2lnc. R.T. called and Xopenex neb treatment received. 02 sat increased to 100 %. HR decreased to 102-110. HR irregular. Patient has chronic Afib. Patient reports feeling much better.HOB up 40 degrees.
--- NOTE | 2024-06-15 02:36 | PC.NURSE ---
Olesya Puckett APRN notified of patients sats and HR but does not want telemetry as of now. To continue to monitor.
[2024-06-15 04:00] VITALS: BP 106/72; PULSE 117; RESP 20; TEMP 36.7; O2SAT 93; BMI 31.4
--- NOTE | 2024-06-15 05:33 | PC.NURSE ---
No more complaints of SOA. 02 at 2lnc. Resting in bed with HOB elevated 35 degrees.
[2024-06-15 05:55] VITALS: PULSE 101; PULSE 102; O2SAT 91
[2024-06-15] MEDS: LEVOTHYROXINE 25MCG (0.025MG) TAB 25 MCG PO (06:03)
[2024-06-15 07:05] LABS: Albumin Level 3.1 g/dl (3.5-5.0); Chloride 103 mmol/L (98-107); Potassium 4.3 mmoL/L (3.5-5.1); Sodium 137 mmol/L (136-145)
[2024-06-15 07:07] LABS: Blood Urea Nitrogen 41 mg/dl (7-17); Creatinine Clearance Estimated 21 mL/min (50-200); Estimated Glomerular Filt Rate 18 ml/min (>60); GFR (African American) 22 ML/MIN (>60)
[2024-06-15 07:08] LABS: Alanine Aminotransferase 12 U/L (12-78); Albumin/Globulin Ratio 1.5 (1.1-1.8); Alkaline Phosphatase 131 U/L (38-126); Anion Gap 8.3 mEq/L (5-15); Aspartate Amino Transferase 19 U/L (14-36); Bilirubin,Total 0.5 mg/dl (0.2-1.3); Calcium 8.9 mg/dl (8.4-10.2); Carbon Dioxide 30 mmol/L (22.0-30.0); Globulin 2.1 g/dL (1.3-3.2); Glucose 94 mg/dl (74-100); Magnesium 2.5 mg/dl (1.6-2.3); Total Protein,Serum 5.2 g/dl (6.3-8.2)
--- NOTE | 2024-06-15 07:22 | PC.NURSE ---
Reminded Leah the instructor of nursing to make sure the patient is up and out of bed for all meals.
[2024-06-15 07:54] VITALS: BP 112/54; PULSE 107; RESP 19; TEMP 36.6; O2SAT 91
--- NOTE | 2024-06-15 07:55 | P.PN_ITS ---
Subjective Subjective Date: 06/15/24 Time: 07:56 Principal diagnosis: CHF, anemia, CKD Interval history: 88-year-old white female sitting up in bed in no acute distress. More alert today and interactive. No complaints of chest pain. She denies any diarrhea overnight. States she feels great and is anxious to go back to the [place] [facility] today. Exam Data for Last 24 hours Vital signs and Labs for Last 24 Hours: Temp Pulse Resp BP Pulse Ox O2 Del Method O2 Flow Rate 98.0 F 101 H 20 106/72 L 91 L Nasal Cannula 2 06/15/24 04:00 06/15/24 05:55 06/15/24 04:00 06/15/24 04:00 06/15/24 05:55 06/15/24 06:27 06/15/24 06:27 FiO2 28 06/12/24 06:15 Laboratory Results - last 24 hr 06/14/24 19:00: Stool Occult Blood Negative 06/15/24 06:14: Sodium 137, Potassium 4.3, Chloride 103, Carbon Dioxide 30, Anion Gap 8.3, BUN 41 H, Creatinine 2.50 H, Estimated Creat Clear 21, Estimated GFR 18 L*, Est GFR ( Amer) 22 L, Glucose 94, Calcium 8.9, Magnesium 2.5 H , Total Bilirubin 0.5, AST 19 D, ALT 12, Alkaline Phosphatase 131 H, Total Protein 5.2 L, Albumin 3.1 L D, Globulin 2.1, Albumin/Globulin Ratio 1.5 I & O for Last 24 hours: Intake & Output 06/12/24 06/13/24 06/14/24 06/15/24 11:59 11:59 11:59 11:59 Intake Total 650 / 650 270 / 270 1090 / 1090 Output Total 450 / 450 2009 1001 / 1001 Balance 200 / 200 -1740 / -1740 89 / 89 Weight 189 lb 8 oz 190 lb 11.2 oz 189 lb 13.088 oz 188 lb 11.2 oz Microbiology Reports for the Last 24 Hours: Microbiology 06/12/24 10:04 Blood Blood Culture - Preliminary NO GROWTH AFTER 48 HOURS 06/12/24 09:46 Blood Blood Culture - Preliminary NO GROWTH AFTER 48 HOURS Constitutional Constitutional: no acute distress *Routine Respiratory Exam Respiratory: Present CTA bilaterally *Routine Cardiovascular Exam Cardiovascular: Present irregularly irregular *Routine Extremities Exam Extremities: Present edema *Routine Neurological Exam Neurological: Present alert and oriented X3 Progress Note: A&P Assessment and plan (1) (HFpEF) heart failure with preserved ejection fraction: Status: Acute (2) GIB (gastrointestinal bleeding): Status: Acute (3) Atrial fibrillation: Status: Chronic (4) Chronic anemia: Status: Chronic (5) CKD (chronic kidney disease) stage 4, GFR 15-29 ml/min: Status: Acute (6) Bleeding internal hemorrhoids: Status: Acute (7) Generalized weakness: Status: Acute (8) Acquired hypothyroidism: Status: Chronic Assessment and Plan Assessment and Plan for All Diagnoses:: 1. 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 -More alert today. 2. Acute on chronic HFpEF -IV bumex 1 mg BID -on Farxiga -proBNP still elevated despite increased diuretics. May need intermittent metolazone use to help with diuresis. -LFT's have returned to normal -Echo, 06/08, EF 55% with IVSD of 1.4 cm, moderate RV dilation/dysfunction, RVSP 40-45 mm Hg 3. CKD, stage IV -Creatinine 2.5 with GFR 18 4. Chronic anemia -Hemoglobin 8.0 this AM -Recent transfusion during hospital stay last week 5. Coronary artery disease -Three-vessel coronary artery disease noted on CT of the chest yesterday -Troponins normal -Continue isosorbide and metoprolol 6. Chronic atrial fibrillation -Continue Eliquis 2.5 mg twice daily and monitoring hemoglobin -Continue metoprolol for rate control 7. Recent GI bleed -s/p colonoscopy with hemorrhoid banding, 06/08, Dr. Lawton -no plans for repeat endoscopy this admission 8. Pulmonary nodule, LLL on chest CT this admission -defer to Dr. Rosales 9. DNR HR and BP control improved on higher dose metoprolol. Nothing further to add from CV standpoint. May need PRN metolazone use to help prevent HFpEF exacerbations. If discharged, then med recs include: Bumex 1 mg twice daily Farxiga 10 mg daily Isosorbide mononitrate 30 mg daily Apixaban 2.5 mg twice daily Metoprolol tartrate 100 mg twice daily Recommend follow-up in our office in 2 weeks.
[2024-06-15] MEDS: PARoxetine 20MG TABLET 20 MG PO (08:01)
[2024-06-15] MEDS: DAPAGLIFLOZIN PROPANEDIOL 10 MG TABLET PO (08:01)
[2024-06-15] MEDS: METOPROLOL TARTRATE 50MG TABLET 100 MG PO (08:02)
[2024-06-15] MEDS: ISOSORBIDE MONO 30MG TAB.ER.24H 30 MG PO (08:02)
[2024-06-15] MEDS: BUMETANIDE 1MG/4ML VIAL 1 MG IV (08:02)
[2024-06-15] MEDS: APIXABAN 5MG TABLET 2.5 MG PO (08:02)
[2024-06-15 08:18] LABS: NT Pro Brain Natriuretic Pep. 17400 pg/mL (0-450)
[2024-06-15 08:21] LABS: Basophils % 0.5 % (0.1-2.0); Eosinophils # 0.2 K/mm3 (0.0-0.4); Eosinophils % 2.3 % (0.1-12.0); Hematocrit 26.4 % (37.0-47.0); Lymphocytes # 0.4 K/mm3 (0.7-4.5); Lymphocytes % 5.7 % (10-50); Mean Corpuscular HGB Conc 30.4 g/dL (31.8-35.4); Mean Corpuscular Hemoglobin 27.2 pg (27.0-31.2); Mean Corpuscular Volume 89.4 fl (81-99); Mean Platelet Volume 8.1 fl (7.4-10.4); Monocytes # 0.7 K/mm3 (0.1-1.0); Neutrophils # 5.3 K/mm3 (1.8-7.8); Neutrophils % 81.4 % (37.0-80.0); Platelet Count 251 K/mm3 (142-424); Red Blood Count 2.95 M/mm3 (4.20-5.40); Red Cell Distribution Width 17.6 % (11.5-17.5); White Blood Count 6.5 K/mm3 (4.8-10.8)
--- NOTE | 2024-06-15 09:11 | EXP.DC.SUM ---
General Admission date:: 06/12/24 Discharge date: 06/15/24 HPI HPI HPI: Aileen Bassett is a 88-year-old female with a history of HFpEF, TACO, chronic GI bleeds, internal hemorrhoids, A-fib on Eliquis, CKD stage IV, COPD on 2 L baseline, hypertension, hyperlipidemia, hypothyroidism who presented from nursing facility with with confusion, shortness of breath, worsening cough. She was recently discharged from our facility after being treated for TACO, HFpEF exacerbation, and GI bleed. Per daughter, she has been feeling more weak and coughing, with worsening confusion since getting to the nursing facility. At 330 this morning, patient was complaining about not feeling well. Her O2 saturation was in the 70s on 2 L nasal cannula. Improved to 90s with 4 L. Workup in the ED significant for WBC 5.9, Hgb 8.5, creatinine 2.6 near baseline, BNP 64659, troponin 0.[address] unremarkable for acute intracranial ischemic findings. CXR suggestive of right mid to lower airspace disease. Case was discussed with ED provider and decision was made to admit patient for acute on chronic hypoxic respiratory failure. Hospital Course Hospital Course Hospital Course: Aileen Bassett is a 88-year-old female with a history of HFpEF, TACO, chronic GI bleeds, internal hemorrhoids, A-fib on Eliquis, CKD stage IV, COPD on 2 L baseline, hypertension, hyperlipidemia, hypothyroidism who presented from nursing facility with with confusion, shortness of breath, worsening cough. She was recently discharged from our facility 06/09/2024 after being treated for TACO, HFpEF exacerbation, and GI bleed. Per daughter, she has been feeling more weak and coughing, with worsening confusion since getting to the nursing facility. At 330 this morning, patient was complaining about not feeling well. Her O2 saturation was in the 70s on 2 L nasal cannula. Improved to 90s with 4 L. Workup in the ED significant for WBC 5.9, Hgb 8.5, creatinine 2.6 near baseline, BNP 94811, troponin 0.[address] unremarkable for acute intracranial ischemic findings. CXR suggestive of right mid to lower airspace disease. Case was discussed with ED provider and decision was made to admit patient for acute on chronic hypoxic respiratory failure. Patient is shown gradual improvement during admission. Alert and proved in mentation by morning of discharge. Stable on 2 L oxygen. Diuresing well. Adjustments made to regimen. Stable to [facility] to [facility] and continued care. Will complete antibiotics with 1 more day of Levaquin tomorrow. Needs repeat labs in 1 week to monitor kidney function and electrolytes. Problems addressed as follows: #Acute on chronic hypoxic respiratory failure #HFpEF exacerbation ? Recently admitted on 06/06/2024 for TACO in the setting of outpatient blood transfusion and HFpEF exacerbation. Initial BNP 15,300, 3+ lower extremity pitting edema, and bibasilar pulmonary edema with pleural effusions on chest CT. ECHO 06/08/2024 LVEF 55%, severe biatrial dilatation, moderate TR, RVSP 40 to 45 mmHg, moderate reduction in RV function. Treated with IV Bumex 1 mg twice daily during admission. Transition 1 mg orally twice daily at discharge. Kidney function has remained stable. BUN 41 and creatinine 2.5. Stable for 3 days at this range prior to discharge. Needs repeat CBC and CMP in 1 week. ? Continue home Farxiga 10 mg, Imdur. Cardiology consulted and assisted with care. Recommend continue diuresis. #Acute metabolic encephalopathy #Suspected hospital-acquired pneumonia ? Patient is waxing and waning in mentation, ill-appearing. Improved today. Leukocytosis normalized. While there is no leukocytosis, given encephalopathy and bilateral groundglass opacities on CT chest, and recent hospitalization in the past week, will treat for hospital-acquired pneumonia. Continue levofloxacin for total of 5 days. Cultures remain negative. #Chronic GI bleeds #Chronic normocytic anemia ? Patient and daughter state she has had chronic GI bleeds which has been attributed to hemorrhoids. Last colonoscopy a few years ago apparently showed polyps. Apparently follows with GI outpatient. On previous admission, hemoglobin 6.5 on day of admission requiring outpatient transfusion, and had bright red blood bowel movement during hospitalization. GI performed sigmoidoscopy 06/08/2024 with internal bleeding hemorrhoids banding x3. EGD unremarkable. However, daughter states she had a bright red blood per rectum day before admission. Hemoglobin currently stable at 8. Per my discussion with Dr. Lawton during last admission, he recommended a colonoscopy if patient continued to have bright red blood per rectum. Discussed case with GI, no plan for intervention at this time. Further management as an outpatient. #A-fib: Currently in A-fib, heart rate improving. Continue metoprolol 100 mg twice daily. Continue Eliquis 2.5 mg twice daily. CKD stage IV: Creatinine appears to be around baseline of around 2.5. COPD Hypertension Hypothyroidism -Resume home Imdur, levothyroxine, metoprolol. Atrovent, Xopenex scheduled twice daily. Exam Data for Last 24 hours Vital signs and Labs for Last 24 Hours: Temp Pulse Resp BP Pulse Ox O2 Del Method O2 Flow Rate 97.9 F 107 H 19 112/54 L 91 L Nasal Cannula 2 06/15/24 07:54 06/15/24 07:54 06/15/24 07:54 06/15/24 07:54 06/15/24 07:54 06/15/24 08:20 06/15/24 08:20 FiO2 28 06/12/24 06:15 Laboratory Results - last 24 hr 06/14/24 19:00: Stool Occult Blood Negative 06/15/24 06:14: WBC 6.5, RBC 2.95 L, Hgb 8.0 L, Hct 26.4 L, MCV 89.4, MCH 27.2, MCHC 30.4 L, RDW 17.6 H, Plt Count 251, MPV 8.1, Neut % (Auto) 81.4 H, Lymph % (Auto) 5.7 L, Garfield % (Auto) 10.0 H, Eos % (Auto) 2.3, Baso % (Auto) 0.5, Neut # (Auto) 5.3, Lymph # (Auto) 0.4 L, Garfield # (Auto) 0.7, Eos # (Auto) 0.2, Baso # (Auto) 0.0, Sodium 137, Potassium 4.3, Chloride 103, Carbon Dioxide 30, Anion Gap 8.3, BUN 41 H, Creatinine 2.50 H, Estimated Creat Clear 21, Estimated GFR 18 L*, Est GFR ( Amer) 22 L, Glucose 94, Calcium 8.9, Magnesium 2.5 H, Total Bilirubin 0.5, AST 19 D, ALT 12, Alkaline Phosphatase 131 H, NT-Pro-B Natriuret Pep 22472 H, Total Protein 5.2 L, Albumin 3.1 L D, Globulin 2.1, Albumin/Globulin Ratio 1.5 I & O for Last 24 hours: Intake & Output 06/12/24 06/13/24 06/14/24 06/15/24 23:59 23:59 23:59 23:59 Intake Total 360 / 650 290 / 440 1360 / 1360 Output Total 0 / 150 1750 / 2160 1110 / 1510 601 / 601 Balance 360 / 500 -1460 / -1720 250 / -150 -601 / -601 Weight 85.956 kg 86.5 kg 86.1 kg 85.593 kg Microbiology Reports for the Last 24 Hours: Microbiology 06/12/24 10:04 Blood Blood Culture - Preliminary NO GROWTH AFTER 48 HOURS 06/12/24 09:46 Blood Blood Culture - Preliminary NO GROWTH AFTER 48 HOURS Constitutional Constitutional: no acute distress, obese, chronically ill appearing and cooperative *Routine HEENT Exam Head: Present normocephalic Eye: Present EOMI and PERRL ENT: Present mucous membranes moist *Routine Neck Exam Neck: Present supple; Absent lymphadenopathy *Routine Respiratory Exam Respiratory: Present CTA bilaterally; Absent respiratory distress, stridor or wheezes *Routine Cardiovascular Exam Cardiovascular: Present RRR *Routine Abdominal Exam Abdominal: Present soft and normoactive bowel sounds; Absent tenderness *Routine Rectal Exam Patient deferred: visual exam *Routine Exam Patient deferred: external exam *Routine Extremities Exam Extremities: Present edema; Absent cyanosis or clubbing Comments: chronic lymphedema with 1+ pitting edema *Routine Skin Exam Skin: Present warm; Absent rash *Routine Neurological Exam Neurological: Present alert and moving all extremities; Absent altered mental status Comments: Oriented to self & place Results Data Completed and Pending Labs on day of discharge: Labs from last 24 hours 06/15/24 06/14/24 06:14 19:00 WBC 6.5 RBC 2.95 L Hgb 8.0 L Hct 26.4 L MCV 89.4 MCH 27.2 MCHC 30.4 L RDW 17.6 H Plt Count 251 MPV 8.1 Neut % (Auto) 81.4 H Lymph % (Auto) 5.7 L Garfield % (Auto) 10.0 H Eos % (Auto) 2.3 Baso % (Auto) 0.5 Neut # (Auto) 5.3 Lymph # (Auto) 0.4 L Garfield # (Auto) 0.7 Eos # (Auto) 0.2 Baso # (Auto) 0.0 Sodium 137 Potassium 4.3 Chloride 103 Carbon Dioxide 30 Anion Gap 8.3 BUN 41 H Creatinine 2.50 H Estimated Creat Clear 21 Estimated GFR 18 L* Est GFR ( Amer) 22 L Glucose 94 Calcium 8.9 Magnesium 2.5 H Total Bilirubin 0.5 AST 19 D ALT 12 Alkaline Phosphatase 131 H NT-Pro-B Natriuret Pep 00296 H Total Protein 5.2 L Albumin 3.1 L D Globulin 2.1 Albumin/Globulin Ratio 1.5 Stool Occult Blood Negative Preliminary micro results at discharge 06/12/24 10:04 Blood Culture - Preliminary Blood NO GROWTH AFTER 48 HOURS 06/12/24 09:46 Blood Culture - Preliminary Blood NO GROWTH AFTER 48 HOURS DS: Diagnosis Discharge Diagnosis (1) (HFpEF) heart failure with preserved ejection fraction: Status: Acute Code(s): I50.30 - Unspecified diastolic (congestive) heart failure Qualifiers: Heart failure chronicity: acute on chronic Qualified Code(s): I50.33 - Acute on chronic diastolic (congestive) heart failure (2) GIB (gastrointestinal bleeding): Status: Acute Code(s): K92.2 - Gastrointestinal hemorrhage, unspecified (3) Atrial fibrillation: Status: Chronic Code(s): I48.91 - Unspecified atrial fibrillation Qualifiers: Atrial fibrillation type: longstanding persistent Qualified Code(s): I48.11 - Longstanding persistent atrial fibrillation (4) Chronic anemia: Status: Chronic Code(s): D64.9 - Anemia, unspecified (5) CKD (chronic kidney disease) stage 4, GFR 15-29 ml/min: Status: Acute Code(s): N18.4 - Chronic kidney disease, stage 4 (severe) (6) Bleeding internal hemorrhoids: Status: Acute Code(s): K64.8 - Other hemorrhoids (7) Generalized weakness: Status: Acute Code(s): R53.1 - Weakness (8) Acquired hypothyroidism: Status: Chronic Code(s): E03.9 - Hypothyroidism, unspecified Meds Home Medications and Allergies Home Medications ?Medication ?Instructions ?Recorded ?Confirmed ?Type omeprazole 20 mg capsule,delayed 20 mg PO DAILY 12/01/20 06/12/24 History release apixaban 2.5 mg tablet (Eliquis) 2.5 mg PO BID 12/29/22 06/12/24 History levothyroxine 25 mcg tablet 25 mcg PO DAILY 12/29/22 06/12/24 History isosorbide mononitrate 30 mg 30 mg PO DAILY 03/30/24 06/12/24 History tablet,extended release 24 hr paroxetine HCl 20 mg tablet 20 mg PO DAILY 03/30/24 06/12/24 History dapagliflozin propanediol 10 mg 10 mg PO DAILY 30 days #30 tabs 06/09/24 06/12/24 Rx tablet (Farxiga) polyethylene glycol 3350 17 gram 17 g PO DAILY #30 ea 06/09/24 06/12/24 Rx oral powder packet (HealthyLax) acetaminophen 500 mg tablet 500 mg PO Q4H PRN Pain/fever 06/12/24 06/12/24 History (Acetaminophen Extra Strength) cyanocobalamin (vitamin B-12) 1,000 mcg IM MONTHLY 06/12/24 06/12/24 History 1,000 mcg/mL injection solution bumetanide 1 mg tablet 1 mg PO BID #60 tabs 06/15/24 Rx ipratropium bromide 0.02 % 0.5 mg (2.5 mL) inhalation BIDRT 06/15/24 Rx solution for inhalation 30 days #150 mL levalbuterol HCl 1.25 mg/3 mL 1.25 mg (3 mL) inhalation BIDRT 30 06/15/24 Rx solution for nebulization days #180 mL levofloxacin 750 mg tablet 750 mg PO ONCE 1 day #1 tab 06/15/24 Rx metoprolol tartrate 50 mg tablet 100 mg (2 x 50 mg) PO BID 30 days 06/15/24 Rx #120 tabs New Prescriptions to Start Prescriptions: bumetanide Calderon Rosales ipratropium bromide Calderon Rosales levalbuterol HCl Calderon Rosales levofloxacin Calderon Rosales metoprolol tartrate Calderon Rosales Allergies Allergy/AdvReac Type Severity Reaction Status Date / Time cefdinir Allergy Severe Hives Verified 06/06/24 11:23 iodine [IODINE] Allergy Severe S-ANAPHYLAX Verified 06/06/24 11:23 IS Sulfa (Sulfonamide Allergy Severe I-HIVES Verified 06/06/24 11:23 Antibiotics) [SULFA (SULFONAMIDE ANTIBIOTICS)] Penicillins [PENICILLINS] Allergy Intermediate I-RASH Verified 06/06/24 11:23 codeine [CODEINE] Allergy Unknown NA-HALLUCIN Verified 06/06/24 11:23 ATIONS hydrogen peroxide Allergy Unknown Other Verified 06/06/24 11:23 Discharge Plan Disposition Patient Disposition: Xfer SNF Condition: Fair Discharge Order Discharge Orders: Discharge Order (Routine); Ordered 06/15/24 Ordered By: Calderon Rosales Follow up Plan Follow up with: Shawn Lawton II, MD [Staff Physician] - 07/12/24 10:00 am Govind Stephenson MD [Staff Physician] - 06/28/24 9:00 am (with Ramiro YIN ) Prescriptions/Medication Reconciliation: New metoprolol tartrate 50 mg Tablet 100 mg PO BID 30 Days Qty: 120 0RF bumetanide 1 mg tablet 1 mg PO BID Qty: 60 0RF levofloxacin 750 mg tablet 750 mg PO ONCE 1 Days Qty: 1 0RF Rx Instructions: due 06/16/24 to complete course levalbuterol HCl 1.25 mg/3 mL Solution For Nebulization 1.25 mg inhalation BIDRT 30 Days Qty: 180 0RF ipratropium bromide 0.02 % Solution 0.5 mg inhalation BIDRT 30 Days Qty: 150 0RF Continued levothyroxine 25 mcg tablet 25 mcg PO DAILY Eliquis 2.5 mg tablet 2.5 mg PO BID isosorbide mononitrate 30 mg tablet extended release 24 hr 30 mg PO DAILY paroxetine HCl 20 mg tablet 20 mg PO DAILY dapagliflozin propanediol [Farxiga] 10 mg Tablet 10 mg PO DAILY 30 Days Qty: 30 0RF polyethylene glycol 3350 [HealthyLax] 17 gram Powder In Packet 17 g PO DAILY Qty: 30 0RF omeprazole 20 MG capsule,delayed release(DR/EC) 20 mg PO DAILY acetaminophen [Acetaminophen Extra Strength] 500 mg Tablet 500 mg PO Q4H PRN (Reason: Pain/fever) cyanocobalamin (vitamin B-12) 1,000 mcg/mL solution 1,000 mcg IM MONTHLY Patient Comments: INJECT 1 ML INTO A MUSCLE 1 TIME EACH WEEK Discontinued metoprolol tartrate 50 mg tablet 50 mg PO BID Qty: 60 0RF Problem Reconciliation Problems Reviewed?: Yes Patient Discharge Instructions ACTIVITY: Continue current activity, Ambulate as tolerated and Up with assistance DIET: continue same diet Patient Instructions: DI for Pneumonia -- Adult Print Language: Nepali Providers Primary Care Provider: Jeremy Pride Admadilene Provider: Lauro Ho Attending Provider: Lauro Ho
[2024-06-15] MEDS: ONDANSETRON 4MG/2ML VIAL 4 MG IV (09:35)
--- NOTE | 2024-06-15 10:16 | PC.NURSE ---
Report called to nurse rose at [facility].
== END 2024-06-15 13:13 | DRG 189 ==
LOC: ER 07:44 → 2ND 09:05
PROVIDERS: Emergency Medicine; Physician Assistant; Admitting Provider Student in an Organized Health Care Education/Training Program; Emergency Provider Student in an Organized Health Care Education/Training Program; PCP Internal Medicine Adolescent Medicine; Visit Provider Student in an Organized Health Care Education/Training Program
DX: J96.21 Acute and chronic respiratory failure with hypoxia; G93.41 Metabolic encephalopathy; I50.33 Acute on chronic diastolic (congestive) heart failure; J18.9 Pneumonia, unspecified organism; I13.0 Hypertensive heart and chronic kidney disease with heart failure and stage 1 through stage 4 chronic kidney disease, or unspecified chronic kidney disease; I48.11 Longstanding persistent atrial fibrillation; E87.20 Acidosis, unspecified; N18.4 Chronic kidney disease, stage 4 (severe); I25.10 Atherosclerotic heart disease of native coronary artery without angina pectoris; E03.9 Hypothyroidism, unspecified; J44.9 Chronic obstructive pulmonary disease, unspecified; Z79.01 Long term (current) use of anticoagulants; Z79.899 Other long term (current) drug therapy; D50.0 Iron deficiency anemia secondary to blood loss (chronic); K64.2 Third degree hemorrhoids; Z66 Do not resuscitate
CPT/HCPCS: 36415; 70450; 71046; 71250; 80053; 80307; 80320; 81001; 82272; 82803; 83605; 83735; 83880; 84145; 84484; 85007; 85025; 85027; 85378; 86140; 86803; 87040; 87389; 87636; 93005; 94640; 94761; 99291; G0328; G0480; J0692; J1650; J1939; J1956; J2405; J2919; J3370; J7120; J7614; J7620; J7644

== ENCOUNTER 2024-07-12 16:37 | Emergency (ER) | payer MEDICARE, SELFPAY ==
[2024-07-12] VITALS (9 sets, daily range): BP systolic 116–150; BP diastolic 58–90; PULSE 74–101; RESP 12–39; TEMP 36.8–36.9; O2SAT 95–100; BMI 25.7
--- NOTE | 2024-07-12 16:39 | HMH.EDGENADL ---
Discharge Plan Disposition Patient Disposition: Home, Self-Care Condition: Fair Prescriptions Prescriptions: No Action levothyroxine 25 mcg tablet 25 mcg PO DAILY Eliquis 2.5 mg tablet 2.5 mg PO BID isosorbide mononitrate 30 mg tablet extended release 24 hr 30 mg PO DAILY paroxetine HCl 20 mg tablet 20 mg PO DAILY dapagliflozin propanediol [Farxiga] 10 mg Tablet 10 mg PO DAILY 30 Days Qty: 30 0RF polyethylene glycol 3350 [HealthyLax] 17 gram Powder In Packet 17 g PO DAILY Qty: 30 0RF omeprazole 20 MG capsule,delayed release(DR/EC) 20 mg PO DAILY acetaminophen [Acetaminophen Extra Strength] 500 mg Tablet 500 mg PO Q4H PRN (Reason: Pain/fever) cyanocobalamin (vitamin B-12) 1,000 mcg/mL solution 1,000 mcg IM MONTHLY Patient Comments: INJECT 1 ML INTO A MUSCLE 1 TIME EACH WEEK metoprolol tartrate 50 mg Tablet 100 mg PO BID 30 Days Qty: 120 0RF bumetanide 1 mg tablet 1 mg PO BID Qty: 60 0RF levofloxacin 750 mg tablet 750 mg PO ONCE 1 Days Qty: 1 0RF Rx Instructions: due 06/16/24 to complete course levalbuterol HCl 1.25 mg/3 mL Solution For Nebulization 1.25 mg inhalation BIDRT 30 Days Qty: 180 0RF ipratropium bromide 0.02 % Solution 0.5 mg inhalation BIDRT 30 Days Qty: 150 0RF Referrals Follow up/Referrals: Provider,Referral, MD [Primary Care Provider] - See instructions Activity Restrictions/Add. 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 Hemoglobin was 7.9 today which is stable when compared with 8.0 upon your discharge last month. Your chest x-ray showed a pleural effusion on the left, you have been given 1 mg of IV Bumex. Return to the emergency department if you continue to have bloody stools or changes in your vital signs. Please follow up with your primary care provider in 2-3 days. Please return to ED if your symptoms worsen, change in location, change in severity, new symptoms develop or if you become concerned for your health. Clinical Impressions Clinical Impression: Chronic anemia, Heart failure Print Language Print Language: Serbian Discharge ED Provider: Oj,Dale General Adult HPI General Chief complaint: Recheck/Abnormal Lab/Rx Stated complaint: weakness Time Seen by Provider: 07/12/24 16:39 History of Present Illness HPI narrative: Patient is an 88-year-old female with history of heart failure, [place], chronic GI bleeds, A-fib on Eliquis, CKD, COPD on 2 L at baseline, hypertension, hyperlipidemia. On my independent review of the MAR, she was discharged on 1009 4 a heart failure exacerbation and confusion. Hemoglobin was 8 on discharge then. GI recommended an outpatient colonoscopy which patient has not received yet. On arrival today, patient reporting no complaints, mild shortness of breath which she reports is at baseline. [facility] did routine labs which demonstrated a hemoglobin of 6.7 today and so was sent here for further evaluation. Patient denies any fevers, chest pain, vomiting, diarrhea, dysuria, hematuria. She endorses dark stools at baseline, unchanged. Related Data Home Medications ?Medication ?Instructions ?Recorded ?Confirmed omeprazole 20 mg capsule,delayed 20 mg PO DAILY 12/01/20 06/12/24 release apixaban 2.5 mg tablet (Eliquis) 2.5 mg PO BID 12/29/22 06/12/24 levothyroxine 25 mcg tablet 25 mcg PO DAILY 12/29/22 06/12/24 isosorbide mononitrate 30 mg 30 mg PO DAILY 03/30/24 06/12/24 tablet,extended release 24 hr paroxetine HCl 20 mg tablet 20 mg PO DAILY 03/30/24 06/12/24 acetaminophen 500 mg tablet 500 mg PO Q4H PRN Pain/fever 06/12/24 06/12/24 (Acetaminophen Extra Strength) cyanocobalamin (vitamin B-12) 1,000 mcg IM MONTHLY 06/12/24 06/12/24 1,000 mcg/mL injection solution Previous Rx's ?Medication ?Instructions ?Recorded dapagliflozin propanediol 10 mg 10 mg PO DAILY 30 days #30 tabs 06/09/24 tablet (Farxiga) polyethylene glycol 3350 17 gram 17 g PO DAILY #30 ea 06/09/24 oral powder packet (HealthyLax) bumetanide 1 mg tablet 1 mg PO BID #60 tabs 06/15/24 ipratropium bromide 0.02 % 0.5 mg (2.5 mL) inhalation BIDRT 06/15/24 solution for inhalation 30 days #150 mL levalbuterol HCl 1.25 mg/3 mL 1.25 mg (3 mL) inhalation BIDRT 30 06/15/24 solution for nebulization days #180 mL levofloxacin 750 mg tablet 750 mg PO ONCE 1 day #1 tab 06/15/24 metoprolol tartrate 50 mg tablet 100 mg (2 x 50 mg) PO BID 30 days 06/15/24 #120 tabs Allergies Allergy/AdvReac Type Severity Reaction Status Date / Time cefdinir Allergy Severe Hives Verified 06/06/24 11:23 iodine [IODINE] Allergy Severe S-ANAPHYLAX Verified 06/06/24 11:23 IS Sulfa (Sulfonamide Allergy Severe I-HIVES Verified 06/06/24 11:23 Antibiotics) [SULFA (SULFONAMIDE ANTIBIOTICS)] Penicillins [PENICILLINS] Allergy Intermediate I-RASH Verified 06/06/24 11:23 codeine [CODEINE] Allergy Unknown NA-HALLUCIN Verified 06/06/24 11:23 ATIONS hydrogen peroxide Allergy Unknown Other Verified 06/06/24 11:23 [facility] Disclaimer: The information contained in this section may have been updated after the patient was seen, as this information can be updated by other users. Medical History Normal colonoscopy Respiratory failure with hypoxia TIA (transient ischemic attack) Rapid atrial fibrillation Diverticulitis Anemia requiring transfusions Acute hypoxemic respiratory failure Acute on chronic diastolic CHF (congestive heart failure) SIRS (systemic inflammatory response syndrome) Aortic stenosis COPD (chronic obstructive pulmonary disease) with acute bronchitis Hypotensive episode COPD (chronic obstructive pulmonary disease) Hypoxia Subungual hematoma of left ring finger Gangrene of finger of left hand Acquired hypothyroidism Atrial fibrillation CKD (chronic kidney disease) CAD (coronary artery disease) Cellulitis of left ring finger Gastroenteritis Concussion without loss of consciousness Head contusion Facial contusion Congestive heart disease Pleural effusion Chronic anemia Renal insufficiency Anticoagulated on Coumadin Junctional bradycardia Surgical History Hx of cholecystectomy S/P lumpectomy, left breast Status post total hip replacement, right Family History Other Family history of diabetes mellitus type II Family history of hypertension Social History (Updated 06/12/24 @ 10:41 by Edda Bell RN) Smoking Status: Never smoker second hand exposure: No alcohol intake: never counseling given: No substance use type: denies use current occupational status: retired Travel in the last 8 weeks: None household members: none housing: apartment caffeine: Yes Other Medical History Have you received the Flu Vaccine for this season: No Have you received the Pneumonia Vaccine: No ROS Obtained: Yes All systems reviewed & no additional complaints except as documented Physical Exam General General appearance: alert and in no apparent distress Head Head exam: atraumatic and normocephalic Eye Eye exam: Present PERRL and EOMI ENT ENT exam: Present normal oropharynx and mucous membranes dry Neck Neck exam: Present full ROM and trachea midline Chest Chest inspection: Present symmetric chest wall rise Respiratory Respiratory exam: Present normal lung sounds bilaterally; Absent respiratory distress, wheezes, stridor or accessory muscle use Cardiovascular Cardiovascular exam: Present regular rate and normal rhythm Abdominal Exam Abdominal exam: Present soft, hernia (Ventral reducible) and other; Absent distention or tenderness Extremities Exam Extremities exam: Present full ROM Neurological Exam Neurological exam: Present alert and oriented X3 Psychiatric Psychiatric exam: Present normal mood Skin Skin exam: Present warm, dry and pallor Medical Decision Making Medical Records Screening: Per USPSTF and CDC recommendations, given the prevalence of disease in our region, it is our hospital?s policy to screen for HIV and viral Hepatitis for all patients aged 18 and over and those with ongoing risk factors. Dirk Inquiry Pt receiving controlled substance: No Vital Signs: 07/12/24 16:37 07/12/24 17:01 07/12/24 17:33 Temperature 98.2 F Temperature Source Oral Pulse Rate 101 H Pulse Rate [Right Radial] 83 Respiratory Rate 20 22 22 Blood Pressure 116/65 120/74 Blood Pressure [Right Arm] 123/66 Blood Pressure Mean [Right Arm] 85 02 Sat by Pulse Oximetry 95 95 Oxygen Delivery Method Nasal Cannula Nasal Cannula Oxygen Flow Rate (LPM) 2 2 07/12/24 18:08 07/12/24 18:45 07/12/24 19:00 Temperature Temperature Source Pulse Rate 88 96 H Pulse Rate [Right Radial] Respiratory Rate 16 17 12 Blood Pressure 125/58 L 143/73 H 145/81 H Blood Pressure [Right Arm] Blood Pressure Mean [Right Arm] 02 Sat by Pulse Oximetry 96 96 100 Oxygen Delivery Method Oxygen Flow Rate (LPM) 07/12/24 19:31 07/12/24 20:00 07/12/24 22:46 Temperature 98.4 F Temperature Source Pulse Rate 95 H 74 95 H Pulse Rate [Right Radial] Respiratory Rate 20 39 H 18 Blood Pressure 124/60 124/72 150/90 H Blood Pressure [Right Arm] Blood Pressure Mean [Right Arm] 02 Sat by Pulse Oximetry 97 97 Oxygen Delivery Method Oxygen Flow Rate (LPM) Lab Data Lab Results 07/12/24 16:54: WBC 6.6, RBC 3.09 L, Hgb 7.9 L, Hct 25.7 L, MCV 83.2, MCH 25.7 L, MCHC 30.9 L, RDW 18.0 H, Plt Count 330, MPV 8.2, Neut % (Auto) 78.0, Lymph % (Auto) 10.1, [place] % (Auto) 9.2, Eos % (Auto) 2.2, Baso % (Auto) 0.5, Neut # (Auto) 5.2, Lymph # (Auto) 0.7, [place] # (Auto) 0.6, Eos # (Auto) 0.2, Baso # (Auto) 0.0, PT 11.4, INR 1.02, APTT 24.9, Sodium 138, Potassium 3.9, Chloride 94 L, Carbon Dioxide 36 H, Anion Gap 11.9, BUN 61 H, Creatinine 2.40 H, Estimated Creat Clear 17, Estimated GFR 19 L*, Est GFR ( Amer) 23 L, Glucose 101 H, Calcium 8.6, Magnesium 1.9, Total Bilirubin 0.6, AST 27, ALT 13, Alkaline Phosphatase 122, Troponin I 0.06 H, NT-Pro-B Natriuret Pep 09583 H, Total Protein 5.1 L, Albumin 3.1 L, Globulin 2.0, Albumin/Globulin Ratio 1.6, Blood Type O Positive, Antibody Screen Negative 07/12/24 18:46: Troponin I 0.05 H 07/12/24 16:54 07/12/24 16:54 Orders (Tests/Meds): ED MEDICATIONS Discontinued Medications Generic Name Dose Route Start Last Admin Trade Name Freq PRN Reason Stop Dose Admin Bumetanide 1 mg 07/12/24 17:46 07/12/24 18:02 Bumetanide 1mg/4ml Vial IV 07/12/24 17:47 1 mg ONCE ONE Administration Potassium Chloride 20 meq 07/12/24 17:46 07/12/24 18:01 Potassium Chloride 20meq Tab PO 07/12/24 17:47 20 meq ONCE ONE Administration ORDERS Category Date Time Status Type and Screen Stat BBK 07/12/24 16:54 Completed XR chest portable Stat Exams 07/12/24 16:51 Completed Activated Partial Thrombo Time Stat Lab 07/12/24 16:54 Completed Complete Blood Count Auto Diff Stat Lab 07/12/24 16:54 Completed Comprehensive Metabolic Panel Stat Lab 07/12/24 16:54 Completed Heparin Anti-Xa Stat Lab 07/12/24 17:20 Received Magnesium Stat Lab 07/12/24 16:54 Completed NT Pro Brain Natriuretic Pep. Stat Lab 07/12/24 16:54 Completed Prothrombin Time INR Stat Lab 07/12/24 16:54 Completed Troponin I Q3H Lab 07/12/24 18:46 Completed Troponin I Stat Lab 07/12/24 16:54 Completed Medical Decision Narrative: In summary, this 80-year-old female presents to the emergency department today with anemia. On initial evaluation patient is afebrile, hemodynamically stable on home 2 L. On exam, patient appears pale with pale mucous membranes and dry. 1+ pulses in bilateral upper extremities. 2+ pitting edema in the bilateral lower extremities. Lung sounds are clear to auscultation bilaterally with no rhonchi. No increased work of breathing. Differential diagnosis includes but is not limited to GI bleed, anemia, heart failure exacerbation. Based on these concerns, I ordered CBC CMP BNP troponin EKG chest x-ray. I reviewed prior records including prior creatinines, which is stable when compared with prior, no evidence of HAZEL. Patient does have an elevated BNP to 20,000 elevated from last 14,000. Given some cough and patient subjective shortness of breath, will diurese here with 1 mg of IV Bumex.. ECG personally interpreted demonstrates atrial fibrillation, rate controlled, ST depressions in V2 and V3, not acutely actionable. No criteria for STEMI.. No chest pain right now, low suspicion for ACS. Troponins are flat. Labs personally reviewed demonstrate elevated creatinine, stable compared to prior, potassium within normal limits. Hemoglobin 7.9, stable when compared with prior.. XR personally interpreted demonstrates left-sided pleural effusion with pulmonary vascular congestion and cardiomegaly. New when compared with prior. I considered thoracentesis, however given patient is resting comfortably with no increased work of breathing and is on her home oxygen requirements, favored risks outweigh benefits of this was deferred.. On reassessment patient reports improvement in her symptoms. She has had no bleeding while here and her vitals have remained stable. Will discharge with strict precautions and suggestion to evaluate with cardiology or PCP to take her off her Eliquis given elevated has- bled score.. Patient's prescriptions were reviewed and demonstrate Bumex 1 mg p.o. daily. Admission was considered and given the patient is stable when compared with prior, felt reasonable to discharge with close observation at her intermediate and consideration of stopping Eliquis. At this time it was felt that the patient was safe to be discharged home. The patient was in agreement with this plan. The patient was given strict return precautions prior to being discharged from the emergency department. Critical Care Critical Care Time Critical Care Time: Yes Attestation: On 07/12/24, the high probability of a clinically significant, sudden or life threatening deterioration of the following system(s) required my full and direct attention, intervention and personal management. The time I documented below is in addition to time spent performing reported procedures but includes the following listed in this critical care notation. Total Time Total Critical Care Time: 35
--- NOTE | 2024-07-12 16:44 | ECG_ITS ---
APPROVED REPORT Exam: Resting ECG HR:88 bpm ECG Measurements Heart Rate 88 AXES WA 196 P 252 QRSd 105 QRS 33 QT 389 T 4 QTc 435 Conclusion SINUS RHYTHM WITH FREQUENT VENTRICULAR PREMATURE COMPLEXES WITH OCCASIONAL SUPRAVENTRICULAR PREMATURE COMPLEXES ST DEVIATION AND MODERATE T-WAVE ABNORMALITY, CONSIDER INFERIOR ISCHEMIA [-0.1+ mV T-WAVE IN II/aVF] ABNORMAL ECG No STEMI Electronically signed by : DAILY DURAN, 07/12/2024 23:31:00
--- NOTE | 2024-07-12 16:51 | XR_ITS ---
PROCEDURE INFORMATION: Exam: XR Chest Exam date and time: 07/12/2024 4:55 PM Age: 88 years old Clinical indication: Shortness of breath; Additional info: SOB TECHNIQUE: Imaging protocol: Radiologic exam of the chest. Views: 1 view. COMPARISON: CT CHEST WO CON 06/12/2024 5:14 PM FINDINGS: Lungs: Left lower lobe opacities may reflect compressive atelectasis, appear increased from 06/12/2024. Calcified granuloma in the right lower lobe is stable. There is mild peribronchial cuffing. There is decrease in mild perihilar and bibasilar opacities suggesting decreasing edema. Pleural spaces: There is a persistent left small to moderate pleural effusion. No definite right effusion. Heart/Mediastinum: There is a small to moderate hiatal hernia. Negative for pneumothorax. There is mild pulmonary vascular redistribution suggesting mild pulmonary venous hypertension. The heart is [id number] enlarged. Bones/joints: There is no evidence of acute fracture. Soft tissues: Surgical clips in the left axillary region are present.The aorta demonstrates mild atherosclerotic calcification. IMPRESSION: 1. Small to moderate left pleural effusion, mildly increased since 06/12/2024 2. Left lower lobe opacities are mildly increased and may reflect compressive atelectasis. Cannot entirely exclude pneumonia. 3. Stable small hiatal hernia. 4. Stable [id number] cardiomegaly. 5. Decrease in mild perihilar and bibasilar opacities suggesting decreasing edema.
[2024-07-12 17:28] LABS: Basophils % 0.5 % (0.1-2.0); Eosinophils # 0.2 K/mm3 (0.0-0.4); Eosinophils % 2.2 % (0.1-12.0); Hematocrit 25.7 % (37.0-47.0); Hemoglobin 7.9 g/dL (12.2-16.2); Lymphocytes # 0.7 K/mm3 (0.7-4.5); Lymphocytes % 10.1 % (10-50); Mean Corpuscular HGB Conc 30.9 g/dL (31.8-35.4); Mean Corpuscular Hemoglobin 25.7 pg (27.0-31.2); Mean Corpuscular Volume 83.2 fl (81-99); Mean Platelet Volume 8.2 fl (7.4-10.4); Monocytes # 0.6 K/mm3 (0.1-1.0); Monocytes % 9.2 % (1.7-9.3); Neutrophils # 5.2 K/mm3 (1.8-7.8); Platelet Count 330 K/mm3 (142-424); Red Blood Count 3.09 M/mm3 (4.20-5.40); White Blood Count 6.6 K/mm3 (4.8-10.8)
[2024-07-12 17:29] LABS: Alanine Aminotransferase 13 U/L (12-78); Albumin Level 3.1 g/dl (3.5-5.0); Albumin/Globulin Ratio 1.6 (1.1-1.8); Alkaline Phosphatase 122 U/L (38-126); Aspartate Amino Transferase 27 U/L (14-36); Bilirubin,Total 0.6 mg/dl (0.2-1.3); Blood Urea Nitrogen 61 mg/dl (7-17); Calcium 8.6 mg/dl (8.4-10.2); Chloride 94 mmol/L (98-107); Creatinine Clearance Estimated 17 mL/min (50-200); Estimated Glomerular Filt Rate 19 ml/min (>60); GFR (African American) 23 ML/MIN (>60); Glucose 101 mg/dl (74-100); Magnesium 1.9 mg/dl (1.6-2.3); Potassium 3.9 mmoL/L (3.5-5.1); Sodium 138 mmol/L (136-145); Total Protein,Serum 5.1 g/dl (6.3-8.2)
[2024-07-12 17:34] LABS: Activated Partial Thrombo Time 24.9 seconds (22.8-30.6); INR 1.02 (0.9-1.1); Prothrombin Time 11.4 seconds (10.1-12.5)
[2024-07-12 17:35] LABS: Anion Gap 11.9 mEq/L (5-15); Carbon Dioxide 36 mmol/L (22.0-30.0)
[2024-07-12 17:40] LABS: NT Pro Brain Natriuretic Pep. 20900 pg/mL (0-450); Troponin I 0.06 ng/ml (0.00-0.034)
[2024-07-12] MEDS: POTASSIUM CHLORIDE 20MEQ TAB 20 MEQ PO (18:01)
[2024-07-12] MEDS: BUMETANIDE 1MG/4ML VIAL 1 MG IV (18:02)
[2024-07-12 19:23] LABS: Troponin I 0.05 ng/ml (0.00-0.034)
--- NOTE | 2024-07-12 21:11 | PC.NURSE ---
[facility] called for an update. Update provided to charge nurse. Charge nurse requested report. Report given
[2024-07-14 13:20] LABS: Heparin Anti-Xa >1.52 IU/mL (.)
== END 2024-07-12 23:00 | disposition home or self-care (01) ==
PROVIDERS: Emergency Provider Emergency Medicine
DX: R06.02 Shortness of breath (principal); I50.9 Heart failure, unspecified; D64.9 Anemia, unspecified
CPT/HCPCS: 71045; 80053; 83735; 83880; 84484; 85025; 85520; 85610; 85730; 86850; 93005; 96374; 99291; J1939

== ENCOUNTER 2024-10-02 15:13 | Emergency (ER) | payer MEDICARE, SELFPAY ==
[2024-10-02] VITALS (19 sets, daily range): BP systolic 112–133; BP diastolic 61–93; PULSE 78–118; RESP 18–30; TEMP 36.9–37.1; O2SAT 95–100; BMI 29.1
--- NOTE | 2024-10-02 15:20 | ED_ITS ---
Discharge Plan Disposition Patient Disposition: [facility] Chief Complaint: Recheck/Abnormal Lab/Rx Prescriptions Prescriptions: No Action hydrocortisone acetate [Anusol-HC] 25 mg suppository 25 mg IN HS Qty: 24 0RF Rx Instructions: 1 suppository per rectum nightly levothyroxine 25 mcg tablet 25 mcg PO DAILY Eliquis 2.5 mg tablet 2.5 mg PO BID isosorbide mononitrate 30 mg tablet extended release 24 hr 30 mg PO DAILY paroxetine HCl 20 mg tablet 20 mg PO DAILY dapagliflozin propanediol [Farxiga] 10 mg Tablet 10 mg PO DAILY 30 Days Qty: 30 0RF polyethylene glycol 3350 [HealthyLax] 17 gram Powder In Packet 17 g PO DAILY Qty: 30 0RF omeprazole 20 MG capsule,delayed release(DR/EC) 20 mg PO DAILY acetaminophen [Acetaminophen Extra Strength] 500 mg Tablet 500 mg PO Q4H PRN (Reason: Pain/fever) cyanocobalamin (vitamin B-12) 1,000 mcg/mL solution 1,000 mcg IM MONTHLY Patient Comments: INJECT 1 ML INTO A MUSCLE 1 TIME EACH WEEK metoprolol tartrate 50 mg Tablet 100 mg PO BID 30 Days Qty: 120 0RF bumetanide 1 mg tablet 1 mg PO BID Qty: 60 0RF levofloxacin 750 mg tablet 750 mg PO ONCE 1 Days Qty: 1 0RF Rx Instructions: due 06/16/24 to complete course levalbuterol HCl 1.25 mg/3 mL Solution For Nebulization 1.25 mg inhalation BIDRT 30 Days Qty: 180 0RF ipratropium bromide 0.02 % Solution 0.5 mg inhalation BIDRT 30 Days Qty: 150 0RF Activity Restrictions/Add. Instructions Additional Instructions/Restrictions: At this time it was felt you are safe to be discharged home. If new or worsening symptoms please do not hesitate to return the emergency department. Please have your doctor evaluate you within 1 week. Clinical Impressions Clinical Impression: Weakness, CKD (chronic kidney disease), Chronic anemia, Chronic uremia Print Language Print Language: Arabic Discharge ED Provider: Ranjit Stephens General Adult HPI <ANNAMARIA Lloyd - Last Filed: 10/02/24 21:53> General Chief complaint: Recheck/Abnormal Lab/Rx Stated complaint: Low BP (90/58), Hx anemia Time Seen by Provider: 10/02/24 15:20 History of Present Illness HPI narrative: Patient presents for evaluation of weakness. Patient is a resident of [facility] and has a past medical history of iron deficiency anemia, CHF, chronic renal disease stage IV, internal hemorrhoids, coronary artery disease and atrial fibrillation on Eliquis. Patient reportedly had a conversation with her daughter and told her that she did not feel well and felt weak. Patient had labs done at 06 September that showed a hemoglobin of 6.9 which is not far off of her normal baseline between 7 and 8. They also reported that she was hypotensive and daughter made decision to send in the ER for evaluation. On arrival patient reports that she has a cough which is chronic but denies chest pain shortness of breath fever chills hemoptysis hematochezia melena nausea vomiting diarrhea dysuria. Related Data Home Medications ?Medication ?Instructions ?Recorded ?Confirmed omeprazole 20 mg capsule,delayed 20 mg PO DAILY 12/01/20 07/19/24 release apixaban 2.5 mg tablet (Eliquis) 2.5 mg PO BID 12/29/22 07/19/24 levothyroxine 25 mcg tablet 25 mcg PO DAILY 12/29/22 07/19/24 isosorbide mononitrate 30 mg 30 mg PO DAILY 03/30/24 07/19/24 tablet,extended release 24 hr paroxetine HCl 20 mg tablet 20 mg PO DAILY 03/30/24 07/19/24 acetaminophen 500 mg tablet 500 mg PO Q4H PRN Pain/fever 06/12/24 07/19/24 (Acetaminophen Extra Strength) cyanocobalamin (vitamin B-12) 1,000 mcg IM MONTHLY 06/12/24 07/19/24 1,000 mcg/mL injection solution Previous Rx's ?Medication ?Instructions ?Recorded dapagliflozin propanediol 10 mg 10 mg PO DAILY 30 days #30 tabs 06/09/24 tablet (Farxiga) polyethylene glycol 3350 17 gram 17 g PO DAILY #30 ea 06/09/24 oral powder packet (HealthyLax) bumetanide 1 mg tablet 1 mg PO BID #60 tabs 06/15/24 ipratropium bromide 0.02 % 0.5 mg (2.5 mL) inhalation BIDRT 06/15/24 solution for inhalation 30 days #150 mL levalbuterol HCl 1.25 mg/3 mL 1.25 mg (3 mL) inhalation BIDRT 30 06/15/24 solution for nebulization days #180 mL levofloxacin 750 mg tablet 750 mg PO ONCE 1 day #1 tab 06/15/24 metoprolol tartrate 50 mg tablet 100 mg (2 x 50 mg) PO BID 30 days 06/15/24 #120 tabs hydrocortisone acetate 25 mg 25 mg IN HS #24 ea 07/21/24 rectal suppository (Anusol-HC) Allergies Allergy/AdvReac Type Severity Reaction Status Date / Time cefdinir Allergy Severe Hives Verified 07/19/24 09:39 iodine (IODINE) Allergy Severe S-ANAPHYLAX Verified 07/19/24 09:39 IS Sulfa (Sulfonamide Allergy Severe I-HIVES Verified 07/19/24 09:39 Antibiotics) (SULFA (SULFONAMIDE ANTIBIOTICS)) Penicillins (PENICILLINS) Allergy Intermediate I-RASH Verified 07/19/24 09:39 codeine (CODEINE) Allergy Unknown NA-HALLUCIN Verified 07/19/24 09:39 ATIONS hydrogen peroxide Allergy Unknown Other Verified 07/19/24 09:39 [facility] <ANNAMARIA Lloyd - Last Filed: 10/02/24 21:53> [facility] Disclaimer: The information contained in this section may have been updated after the patient was seen, as this information can be updated by other users. Medical History Normal colonoscopy Respiratory failure with hypoxia TIA (transient ischemic attack) Rapid atrial fibrillation Diverticulitis Anemia requiring transfusions Acute hypoxemic respiratory failure Acute on chronic diastolic CHF (congestive heart failure) SIRS (systemic inflammatory response syndrome) Aortic stenosis COPD (chronic obstructive pulmonary disease) with acute bronchitis Hypotensive episode COPD (chronic obstructive pulmonary disease) Hypoxia Subungual hematoma of left ring finger Gangrene of finger of left hand Acquired hypothyroidism Atrial fibrillation CKD (chronic kidney disease) CAD (coronary artery disease) Cellulitis of left ring finger Gastroenteritis Concussion without loss of consciousness Head contusion Facial contusion Congestive heart disease Pleural effusion Chronic anemia Renal insufficiency Anticoagulated on Coumadin Junctional bradycardia Surgical History Hx of cholecystectomy S/P lumpectomy, left breast Status post total hip replacement, right Family History Other Family history of diabetes mellitus type II Family history of hypertension Social History Smoking Status: Never smoker second hand exposure: No alcohol intake: never counseling given: No substance use type: denies use current occupational status: retired Travel in the last 8 weeks: None household members: none housing: apartment caffeine: Yes Have you lived/traveled outside [place] in past 30 days?: No Contact w/someone who lives/traveled outside US past 30 days?: No Exposure to someone with infectious disease in past 14 days?: No Do you have a fever (greater than 100.4 F or 38 C)?: No Have you tested positive for COVID-19: No Exposed to someone with COVID-19 in past 14 days?: No Do you have a sore throat?: No Do you have a cough?: No Do you have any weakness?: No Do you have any diarrhea?: No Are you experiencing any unusual bleeding?: No Do you have any muscle aches/pain?: No Do you have any abdominal pain?: No Are you experiencing loss of taste or smell?: No Other Medical History Have you received the Flu Vaccine for this season: No Have you received the Pneumonia Vaccine: Yes <ANNAMARIA Lloyd - Last Filed: 10/02/24 21:53> ROS Obtained: Yes Systems reviewed as appropriate & no additional complaints except as documented Physical Exam <ANNAMARIA Lloyd - Last Filed: 10/02/24 21:53> General General appearance: alert and in no apparent distress Respiratory Respiratory exam: Present normal lung sounds bilaterally Cardiovascular Cardiovascular exam: Present irregular rhythm Neurological Exam Neurological exam: Present alert, oriented X3 and CN II-XII intact Medical Decision Making <ANNAMARIA Lloyd - Last Filed: 10/02/24 21:53> Medical Records Medical records reviewed: Yes I reviewed the patient's medical records. Screening: Per USPSTF and CDC recommendations, given the prevalence of disease in our region, it is our hospital?s policy to screen for HIV and viral Hepatitis for all patients aged 18 and over and those with ongoing risk factors. Dirk Inquiry Pt receiving controlled substance: No Vital Signs: 10/02/24 15:13 10/02/24 16:06 10/02/24 16:30 Temperature 98.4 F Temperature Source Oral Pulse Rate 103 H 105 H Pulse Rate [Left Radial] 118 H Respiratory Rate 21 30 H TAR Vitals Timing Blood Pressure 115/62 Blood Pressure [Right Arm] 116/61 Blood Pressure Mean Blood Pressure Mean [Right Arm] 79 02 Sat by Pulse Oximetry 97 99 Oxygen Delivery Method Room Air Room Air 10/02/24 17:01 10/02/24 17:30 10/02/24 18:00 Temperature Temperature Source Pulse Rate 90 93 H 78 Pulse Rate [Left Radial] Respiratory Rate 19 20 22 TAR Vitals Timing Blood Pressure 131/71 132/73 114/75 Blood Pressure [Right Arm] Blood Pressure Mean 87 Blood Pressure Mean [Right Arm] 02 Sat by Pulse Oximetry 100 99 95 Oxygen Delivery Method Room Air Room Air 10/02/24 18:07 10/02/24 18:10 10/02/24 18:15 Temperature 98.6 F 98.6 F 98.4 F Temperature Source Oral Oral Oral Pulse Rate 97 H 102 H 99 H Pulse Rate [Left Radial] Respiratory Rate 19 22 25 H TAR Vitals Timing Pre-Blood Vitals Start Vitals 5 Minute Blood Pressure 115/71 122/91 H 128/68 Blood Pressure [Right Arm] Blood Pressure Mean 85 101 88 Blood Pressure Mean [Right Arm] 02 Sat by Pulse Oximetry 100 100 98 Oxygen Delivery Method 10/02/24 18:20 10/02/24 18:25 10/02/24 18:40 Temperature 98.5 F 98.7 F 98.6 F Temperature Source Oral Oral Oral Pulse Rate 109 H 104 H 97 H Pulse Rate [Left Radial] Respiratory Rate 29 H 22 27 H TAR Vitals Timing 10 Minute 15 Minute 30 Minute Blood Pressure 133/78 124/71 112/64 Blood Pressure [Right Arm] Blood Pressure Mean 96 88 80 Blood Pressure Mean [Right Arm] 02 Sat by Pulse Oximetry 100 100 99 Oxygen Delivery Method 10/02/24 18:55 10/02/24 19:10 10/02/24 20:10 Temperature 98.4 F 98.4 F 98.5 F Temperature Source Oral Oral Oral Pulse Rate 103 H 102 H 109 H Pulse Rate [Left Radial] Respiratory Rate 20 20 20 TAR Vitals Timing 45 Minute 60 Minute 2nd Hour Blood Pressure 120/64 112/64 119/66 Blood Pressure [Right Arm] Blood Pressure Mean 82 80 83 Blood Pressure Mean [Right Arm] 02 Sat by Pulse Oximetry 95 100 100 Oxygen Delivery Method 10/02/24 21:10 10/02/24 21:18 10/02/24 22:18 Temperature 98.4 F 98.6 F 98.4 F Temperature Source Oral Oral Oral Pulse Rate 97 H 96 H 101 H Pulse Rate [Left Radial] Respiratory Rate 20 20 18 TAR Vitals Timing 3rd Hour Completion Vitals 1 Hour Post Infusion Blood Pressure 118/82 127/74 128/93 H Blood Pressure [Right Arm] Blood Pressure Mean 94 91 104 Blood Pressure Mean [Right Arm] 02 Sat by Pulse Oximetry 97 95 95 Oxygen Delivery Method Lab Data Lab results reviewed: Yes I reviewed the patient's lab results. Lab Results 10/02/24 15:25: WBC 7.8, RBC 2.76 L, Hgb 6.8 L*, Hct 23.0 L, MCV 83.3, MCH 24.6 L, MCHC 29.6 L, RDW 19.7 H, Plt Count 363, MPV 9.6, Neut % (Auto) 80.3 H, Lymph % (Auto) 7.0 L, [place] % (Auto) 10.2 H, Eos % (Auto) 1.7, Baso % (Auto) 0.4, Neut # (Auto) 6.3, Lymph # (Auto) 0.6 L, [place] # (Auto) 0.8, Eos # (Auto) 0.1, Baso # (Auto) 0.0, Sodium 133 L, Potassium 3.4 L, Chloride 91 L, Carbon Dioxide 34 H, Anion Gap 11.4, BUN 86 H, Creatinine 3.70 H, Estimated Creat Clear 13, Estimated GFR 12 L*, Est GFR ( Amer) 14 L*, Glucose 110 H, Calcium 9.0, Magnesium 2.2, Total Bilirubin 0.3, AST 22, ALT 16, Alkaline Phosphatase 153 H, Troponin I 0.04 H, Total Protein 6.5 D, Albumin 3.3 L, Globulin 3.2, Albumin/Globulin Ratio 1.0 L, HCV Ab MILES w/Rflx PCR Qn Negative, HIV Ag/Ab Combo Qual Negative 10/02/24 16:15: Blood Type O Positive, Antibody Screen Negative, Crossmatch (AHG) See Detail 10/02/24 20:46: Urine Color Yellow, Urine Appearance Clear, Urine pH 6.0, Ur Specific [place] 1.020, Urine Protein Negative, Urine Glucose (UA) Negative, Urine Ketones Negative, Urine Blood 1+ A, Urine Nitrate Negative, Urine Bilirubin Negative, Urine Urobilinogen 0.2, Ur Leukocyte Esterase Negative 10/02/24 21:31: Troponin I 0.04 H 10/02/24 22:15: Hgb 8.3 L D, Hct 27.8 L 10/02/24 22:15 10/02/24 15:25 Orders (Tests/Meds): ED MEDICATIONS Generic Name Dose Route Start Last Admin Trade Name Freq PRN Reason Stop Dose Admin Sodium Chloride 250 mls @ 25 mls/hr 10/02/24 17:00 10/02/24 18:19 Sod Chlor 0.9% 250ml Bag IV 10/03/24 16:59 25 mls/hr .Q10H MARCELINA Administration Discontinued Medications Generic Name Dose Route Start Last Admin Trade Name Freq PRN Reason Stop Dose Admin Lactated Ringer's 1,000 mls @ 999 mls/hr 10/02/24 16:03 10/02/24 16:53 Lactated Ringer's 1000 Ml Bag IV 10/02/24 17:03 999 mls/hr .Q1H1M ONE Administration ORDERS Category Date Time Status Red Blood Cells Stat BBK 10/02/24 16:15 Completed Type and Screen Stat BBK 10/02/24 16:15 Completed XR chest portable Stat Exams 10/02/24 16:53 Completed CBC w/Auto Diff [Complete Blood Count Auto Diff] Stat Lab 10/02/24 15:25 Completed CMP [Comprehensive Metabolic Panel] Stat Lab 10/02/24 15:25 Completed HIV Combo Stat Lab 10/02/24 15:25 Completed Hemoglobin & Hematocrit, Post Timed Lab 10/02/24 22:15 Completed Hepatitis C Ab Qual. W/ RFX Stat Lab 10/02/24 15:25 Completed Magnesium Stat Lab 10/02/24 15:25 Completed Mini Respiratory Panel Stat Lab 10/02/24 21:04 Received Trop I [Troponin I] Stat Lab 10/02/24 15:25 Completed Troponin I Q3H Lab 10/02/24 21:31 Completed Troponin I Q3H Lab 10/03/24 02:57 Ordered UA [Urinalysis and Microscopic] Stat Lab 10/02/24 20:46 Results HEART Score History (anamnesis): Slightly suspicious ECG: Non-specific disturbance Age: >65 years Risk factors: Atherosclerosis history Medical Decision Narrative: In summary patient is a 9-year-old female who presents to the emergency department for evaluation of weakness. Patient is initially normotensive at 116/61 with a heart rate of 118 that appears to be A-fib on the bedside monitor breathing 21 times a minute satting at 97% on liters by nasal cannula no upon arrival, with a temperature of 98.4. Physical exam is remarkable for diminished breath sounds in the left lung [place] with a coarse wet nonproductive cough, no increased work of breathing, no abdominal pain, Jackelin Coma Score 15, no abdominal tenderness without rebound or guarding or rigidity.. Differential diagnosis includes CHF exacerbation versus viral or bacterial infection versus symptomatic anemia versus acute on chronic renal failure etc. Initial workup will be conducted with hematologic labs plain film chest x-ray urinalysis.. Initial interventions include gentle hydration for now as she has CHF. Initial workup reviewed by me and her white count 7.8 but her hemoglobin is 6.8 with hematocrit of 23.0 platelets 363 absolute neutrophil count 6.3 CMP shows a sodium 133 potassium 3.4 chloride of 94 CO2 of 34 gap of 11.4 BUN of 86 creatinine 3.7 GFR of 12 magnesium of 2.2 alk phos 153 and my informal interpretation of her plain film chest x-ray shows significant cardiomegaly but no acute processes noted prior to radiology read. Given this the patient was placed in observation status at 1700. Medical necessity for observational status is administration of packed red blood cells due to symptomatic anemia and also to observe for volume overload as patient has renal failure and CHF. The patient was provided serial reevaluations continuous cardiac monitoring and pulse oximetry while awaiting results. Patient handed off to Dr. Stephens at 2200 hrs. before reassessment. With repeat H&H completed <Ranjit Stephens MD - Last Filed: 10/02/24 23:08> Vital Signs: 10/02/24 15:13 10/02/24 16:06 10/02/24 16:30 Temperature 98.4 F Temperature Source Oral Pulse Rate 103 H 105 H Pulse Rate [Left Radial] 118 H Respiratory Rate 21 30 H TAR Vitals Timing Blood Pressure 115/62 Blood Pressure [Right Arm] 116/61 Blood Pressure Mean Blood Pressure Mean [Right Arm] 79 02 Sat by Pulse Oximetry 97 99 Oxygen Delivery Method Room Air Room Air 10/02/24 17:01 10/02/24 17:30 10/02/24 18:00 Temperature Temperature Source Pulse Rate 90 93 H 78 Pulse Rate [Left Radial] Respiratory Rate 19 20 22 TAR Vitals Timing Blood Pressure 131/71 132/73 114/75 Blood Pressure [Right Arm] Blood Pressure Mean 87 Blood Pressure Mean [Right Arm] 02 Sat by Pulse Oximetry 100 99 95 Oxygen Delivery Method Room Air Room Air 10/02/24 18:07 10/02/24 18:10 10/02/24 18:15 Temperature 98.6 F 98.6 F 98.4 F Temperature Source Oral Oral Oral Pulse Rate 97 H 102 H 99 H Pulse Rate [Left Radial] Respiratory Rate 19 22 25 H TAR Vitals Timing Pre-Blood Vitals Start Vitals 5 Minute Blood Pressure 115/71 122/91 H 128/68 Blood Pressure [Right Arm] Blood Pressure Mean 85 101 88 Blood Pressure Mean [Right Arm] 02 Sat by Pulse Oximetry 100 100 98 Oxygen Delivery Method 10/02/24 18:20 10/02/24 18:25 10/02/24 18:40 Temperature 98.5 F 98.7 F 98.6 F Temperature Source Oral Oral Oral Pulse Rate 109 H 104 H 97 H Pulse Rate [Left Radial] Respiratory Rate 29 H 22 27 H TAR Vitals Timing 10 Minute 15 Minute 30 Minute Blood Pressure 133/78 124/71 112/64 Blood Pressure [Right Arm] Blood Pressure Mean 96 88 80 Blood Pressure Mean [Right Arm] 02 Sat by Pulse Oximetry 100 100 99 Oxygen Delivery Method 10/02/24 18:55 10/02/24 19:10 10/02/24 20:10 Temperature 98.4 F 98.4 F 98.5 F Temperature Source Oral Oral Oral Pulse Rate 103 H 102 H 109 H Pulse Rate [Left Radial] Respiratory Rate 20 20 20 TAR Vitals Timing 45 Minute 60 Minute 2nd Hour Blood Pressure 120/64 112/64 119/66 Blood Pressure [Right Arm] Blood Pressure Mean 82 80 83 Blood Pressure Mean [Right Arm] 02 Sat by Pulse Oximetry 95 100 100 Oxygen Delivery Method 10/02/24 21:10 10/02/24 21:18 10/02/24 22:18 Temperature 98.4 F 98.6 F 98.4 F Temperature Source Oral Oral Oral Pulse Rate 97 H 96 H 101 H Pulse Rate [Left Radial] Respiratory Rate 20 20 18 TAR Vitals Timing 3rd Hour Completion Vitals 1 Hour Post Infusion Blood Pressure 118/82 127/74 128/93 H Blood Pressure [Right Arm] Blood Pressure Mean 94 91 104 Blood Pressure Mean [Right Arm] 02 Sat by Pulse Oximetry 97 95 95 Oxygen Delivery Method Lab Data Lab Results 10/02/24 15:25: WBC 7.8, RBC 2.76 L, Hgb 6.8 L*, Hct 23.0 L, MCV 83.3, MCH 24.6 L, MCHC 29.6 L, RDW 19.7 H, Plt Count 363, MPV 9.6, Neut % (Auto) 80.3 H, Lymph % (Auto) 7.0 L, [place] % (Auto) 10.2 H, Eos % (Auto) 1.7, Baso % (Auto) 0.4, Neut # (Auto) 6.3, Lymph # (Auto) 0.6 L, [place] # (Auto) 0.8, Eos # (Auto) 0.1, Baso # (Auto) 0.0, Sodium 133 L, Potassium 3.4 L, Chloride 91 L, Carbon Dioxide 34 H, Anion Gap 11.4, BUN 86 H, Creatinine 3.70 H, Estimated Creat Clear 13, Estimated GFR 12 L*, Est GFR ( Amer) 14 L*, Glucose 110 H, Calcium 9.0, Magnesium 2.2, Total Bilirubin 0.3, AST 22, ALT 16, Alkaline Phosphatase 153 H, Troponin I 0.04 H, Total Protein 6.5 D, Albumin 3.3 L, Globulin 3.2, Albumin/Globulin Ratio 1.0 L, HCV Ab MILES w/Rflx PCR Qn Negative, HIV Ag/Ab Combo Qual Negative 10/02/24 16:15: Blood Type O Positive, Antibody Screen Negative, Crossmatch (AHG) See Detail 10/02/24 20:46: Urine Color Yellow, Urine Appearance Clear, Urine pH 6.0, Ur Specific [place] 1.020, Urine Protein Negative, Urine Glucose (UA) Negative, Urine Ketones Negative, Urine Blood 1+ A, Urine Nitrate Negative, Urine Bilirubin Negative, Urine Urobilinogen 0.2, Ur Leukocyte Esterase Negative 10/02/24 21:31: Troponin I 0.04 H 10/02/24 22:15: Hgb 8.3 L D, Hct 27.8 L Orders (Tests/Meds): ED MEDICATIONS Generic Name Dose Route Start Last Admin Trade Name Freq PRN Reason Stop Dose Admin Sodium Chloride 250 mls @ 25 mls/hr 10/02/24 17:00 10/02/24 18:19 Sod Chlor 0.9% 250ml Bag IV 10/03/24 16:59 25 mls/hr .Q10H MARCELINA Administration Discontinued Medications Generic Name Dose Route Start Last Admin Trade Name Freq PRN Reason Stop Dose Admin Lactated Ringer's 1,000 mls @ 999 mls/hr 10/02/24 16:03 10/02/24 16:53 Lactated Ringer's 1000 Ml Bag IV 10/02/24 17:03 999 mls/hr .Q1H1M ONE Administration ORDERS Category Date Time Status Red Blood Cells Stat BBK 10/02/24 16:15 Completed Type and Screen Stat BBK 10/02/24 16:15 Completed XR chest portable Stat Exams 10/02/24 16:53 Completed CBC w/Auto Diff [Complete Blood Count Auto Diff] Stat Lab 10/02/24 15:25 Completed CMP [Comprehensive Metabolic Panel] Stat Lab 10/02/24 15:25 Completed HIV Combo Stat Lab 10/02/24 15:25 Completed Hemoglobin & Hematocrit, Post Timed Lab 10/02/24 22:15 Completed Hepatitis C Ab Qual. W/ RFX Stat Lab 10/02/24 15:25 Completed Magnesium Stat Lab 10/02/24 15:25 Completed Mini Respiratory Panel Stat Lab 10/02/24 21:04 Received Trop I [Troponin I] Stat Lab 10/02/24 15:25 Completed Troponin I Q3H Lab 10/02/24 21:31 Completed Troponin I Q3H Lab 10/03/24 02:57 Ordered UA [Urinalysis and Microscopic] Stat Lab 10/02/24 20:46 Results ECG Data Tracing #1: Independently interpreted by me rate is 109, rhythm is irregular, axis is normal, no ST elevation in anatomical contiguous leads, atrial fibrillation with bifascicular block, nonspecific ST changes no ST elevation in anatomical contiguous leads, QTc 413. Medical Decision Narrative: In summary patient is a 9-year-old female who presents to the emergency department for evaluation of weakness. Patient is initially normotensive at 116/61 with a heart rate of 118 that appears to be A-fib on the bedside monitor breathing 21 times a minute satting at 97% on liters by nasal cannula no upon arrival, with a temperature of 98.4. Physical exam is remarkable for diminished breath sounds in the left lung [place] with a coarse wet nonproductive cough, no increased work of breathing, no abdominal pain, Jackelin Coma Score 15, no abdominal tenderness without rebound or guarding or rigidity.. Differential diagnosis includes CHF exacerbation versus viral or bacterial infection versus symptomatic anemia versus acute on chronic renal failure etc. Initial workup will be conducted with hematologic labs plain film chest x-ray urinalysis.. Initial interventions include gentle hydration for now as she has CHF. Initial workup reviewed by me and her white count 7.8 but her hemoglobin is 6.8 with hematocrit of 23.0 platelets 363 absolute neutrophil count 6.3 CMP shows a sodium 133 potassium 3.4 chloride of 94 CO2 of 34 gap of 11.4 BUN of 86 creatinine 3.7 GFR of 12 magnesium of 2.2 alk phos 153 and my informal interpretation of her plain film chest x-ray shows significant cardiomegaly but no acute processes noted prior to radiology read. Given this the patient was placed in observation status at 1700. Medical necessity for observational status is administration of packed red blood cells due to symptomatic anemia and also to observe for volume overload as patient has renal failure and CHF. The patient was provided serial reevaluations continuous cardiac monitoring and pulse oximetry while awaiting results. Patient handed off to Dr. Stephens at 2200 hrs. before reassessment. With repeat H&H completed Ranjit Stephens: Upon assumption of care patient was hemodynamically stable. Posttransfusion H&H 8.3. Patient has known chronic anemia. Has no significant leukocytosis. Does have some elevation in her creatinine however given colloid resuscitation should be moved some of the interstitial fluid into her intervascular space. She has a BUN that is elevated from baseline however it is usually chronically elevated and it is nonactionable at this time. Patient has worsening CKD, serial flat troponins. I suspect her global weakness is multifactorial from uremia, anemia, worsening CKD. Patient has a significant chronically bad chest x-ray including cardiomegaly which is not particularly worse than prior. Urinalysis interpreted by me and not consistent with infection. Patient underwent p.o. trial at bedside and was successful. Repeat evaluation patient was feeling good at bedside. Given this I think patient does have slight metabolic derangement but not to the point that would warrant her admission especially given that she lives at long-term care facility. Patient is appropriate for discharge at this time was given return precautions. Critical Care <ANNAMARIA Lloyd - Last Filed: 10/02/24 21:53> Critical Care Time Critical Care Time: No
--- NOTE | 2024-10-02 15:25 | ECG_ITS ---
APPROVED REPORT Exam: Resting ECG HR:109 bpm ECG Measurements Heart Rate 109 AXES QRSd 102 QRS 7 QT 349 T 29 QTc 413 Conclusion ATRIAL FIBRILLATION WITH RAPID VENTRICULAR RESPONSE NONSPECIFIC ST & T-WAVE ABNORMALITY ABNORMAL RHYTHM ECG Electronically signed by : ADAM KONG, 10/02/2024 23:21:23
[2024-10-02 16:14] LABS: Basophils % 0.4 % (0.1-2.0); Eosinophils # 0.1 K/mm3 (0.0-0.4); Eosinophils % 1.7 % (0.1-12.0); Lymphocytes # 0.6 K/mm3 (0.7-4.5); Mean Corpuscular HGB Conc 29.6 g/dL (31.8-35.4); Mean Corpuscular Hemoglobin 24.6 pg (27.0-31.2); Mean Corpuscular Volume 83.3 fl (81-99); Mean Platelet Volume 9.6 fl (7.4-10.4); Monocytes # 0.8 K/mm3 (0.1-1.0); Monocytes % 10.2 % (1.7-9.3); Neutrophils # 6.3 K/mm3 (1.8-7.8); Neutrophils % 80.3 % (37.0-80.0); Platelet Count 363 K/mm3 (142-424); Red Blood Count 2.76 M/mm3 (4.20-5.40); Red Cell Distribution Width 19.7 % (11.5-17.5); White Blood Count 7.8 K/mm3 (4.8-10.8)
[2024-10-02 16:17] LABS: Hemoglobin 6.8 g/dL (12.2-16.2)
[2024-10-02 16:19] LABS: Albumin Level 3.3 g/dl (3.5-5.0); Chloride 91 mmol/L (98-107)
[2024-10-02 16:20] LABS: Potassium 3.4 mmoL/L (3.5-5.1); Sodium 133 mmol/L (136-145)
[2024-10-02 16:22] LABS: Alanine Aminotransferase 16 U/L (12-78); Anion Gap 11.4 mEq/L (5-15); Aspartate Amino Transferase 22 U/L (14-36); Carbon Dioxide 34 mmol/L (22.0-30.0); Creatinine Clearance Estimated 13 mL/min (50-200); Estimated Glomerular Filt Rate 12 ml/min (>60); GFR (African American) 14 ML/MIN (>60)
[2024-10-02 16:23] LABS: Alkaline Phosphatase 153 U/L (38-126); Bilirubin,Total 0.3 mg/dl (0.2-1.3); Globulin 3.2 g/dL (1.3-3.2); Glucose 110 mg/dl (74-100); Magnesium 2.2 mg/dl (1.6-2.3); Total Protein,Serum 6.5 g/dl (6.3-8.2)
[2024-10-02 16:24] LABS: Blood Urea Nitrogen 86 mg/dl (7-17)
[2024-10-02] MEDS: LACTATED RINGERS 1000ML 1,000 ML 999 ML IV (16:53)
--- NOTE | 2024-10-02 16:53 | XR_ITS ---
PROCEDURE INFORMATION: Exam: XR Chest Exam date and time: 10/02/2024 5:09 PM Age: 89 years old Clinical indication: Other: Weakness TECHNIQUE: Imaging protocol: Radiologic exam of the chest. Views: 1 view. COMPARISON: 1. CR XR CHEST PORTABLE 07/12/2024 4:55 PM 2. CR XR CHEST 2V 06/12/2024 6:[address] CHEST WO CON 06/12/2024 5:14 PM FINDINGS: Lungs: Increased density in the left lung base laterally adjacent to the apex of the heart similar to previous. Lungs otherwise clear. Pleural spaces: Unremarkable. No pleural effusion. No pneumothorax. Heart/Mediastinum: Cardiomegaly redemonstrated. Bones/joints: Unremarkable. IMPRESSION: Cardiomegaly. Left basilar opacity again noted that may be artifactual related to the cardiomegaly and rotation of the chest to the left although residual small left effusion and associated atelectasis or consolidation not totally excluded.
[2024-10-02] MEDS: 0.9 % SODIUM CHLORIDE 250 ML 25 ML IV (18:19)
[2024-10-02 19:52] LABS: HIV Combo NEGATIVE (Negative)
[2024-10-02 19:59] LABS: Hepatitis C Ab Qual. W/ RFX NEGATIVE (Negative)
[2024-10-02 20:50] LABS: Microscopic, Urine URINE MICROSCOPIC (MICROSCOPIC)
[2024-10-02 21:00] LABS: Appearance,Urine CLEAR (Clear); Bilirubin,Urine Negative (Negative); Blood, Urine 1+ (Negative); Color,Urine YELLOW (Yellow); Glucose,Urine (UA) Negative (Negative); Ketones,Urine Negative (Negative); Leukocyte Esterase,Urine Negative (Negative); Nitrate,Urine Negative (Negative); Protein,Urine Negative (Negative); Urobilinogen,Urine 0.2 EU/dl (0.2)
[2024-10-02 21:18] LABS: Coronavirus 19, PCR Not Detected (NotDetected); Human Rhinovirus Not Detected (NotDetected); Influenza A, PCR Not Detected (NotDetected); Influenza B, PCR Not Detected (NotDetected); Respiratory Syncytial Virus Not Detected (NotDetected)
[2024-10-02 22:35] LABS: Troponin I 0.04 ng/ml (0.00-0.034)
[2024-10-02 22:36] LABS: Hematocrit 27.8 % (37.0-47.0)
[2024-10-02 22:38] LABS: Troponin I 0.04 ng/ml (0.00-0.034)
[2024-10-02 22:58] LABS: Hemoglobin 8.3 g/dL (12.2-16.2)
[2024-10-03 01:24] LABS: Bacteria,Urine 2+ /lpf
== END 2024-10-02 23:31 ==
PROVIDERS: Physician Assistant; Emergency Provider Emergency Medicine; PCP Internal Medicine Adolescent Medicine
DX: D64.9 Anemia, unspecified (principal); N18.9 Chronic kidney disease, unspecified; R53.1 Weakness; R05.9 Cough, unspecified; R03.1 Nonspecific low blood-pressure reading
CPT/HCPCS: 36430; 71045; 80053; 81001; 83735; 84484; 85014; 85018; 85025; 86803; 86850; 87086; 87389; 87631; 93005; 96360; 96361; 99284; J7120; P9016

== ENCOUNTER 2024-12-20 23:42 | Emergency (ER) | payer MEDICARE, SELFPAY ==
--- NOTE | 2024-12-20 23:49 | XR_ITS ---
PROCEDURE INFORMATION: Exam: XR Chest Exam date and time: 12/21/2024 12:11 AM Age: 89 years old Clinical indication: Other: AMS; Additional info: Altered mental status TECHNIQUE: Imaging protocol: Radiologic exam of the chest. Views: 1 view. COMPARISON: CR XR CHEST PORTABLE 10/02/2024 5:09 PM FINDINGS: Lungs: Worsening chronic opacification of the left lower lobe partially secondary to a developing large left-sided pleural effusion. Heterogenous opacities in the left hilum and right lower lobe be secondary to edema and/or a superimposed infectious process. Central vascular congestion. Pleural spaces: Large left-sided pleural effusion. No pneumothorax. Heart/Mediastinum: Cardiomegaly. Vasculature: Aortic calcification. Bones/joints: Unremarkable. IMPRESSION: 1. Worsening chronic opacification of the left lower lobe partially secondary to a developing large left-sided pleural effusion. 2. Heterogenous opacities in the left hilum and right lower lobe be secondary to edema and/or a superimposed infectious process.
--- NOTE | 2024-12-20 23:51 | CT_ITS ---
PROCEDURE INFORMATION: Exam: CT Head Without Contrast Exam date and time: 12/21/2024 12:26 AM Age: 89 years old Clinical indication: Altered mental status/memory loss TECHNIQUE: Imaging protocol: Computed tomography of the head without contrast. Radiation optimization: All CT scans at this facility use at least one of these dose optimization techniques: automated exposure control; mA and/or kV adjustment per patient size (includes targeted exams where dose is matched to clinical indication); or iterative reconstruction. COMPARISON: CT HEAD/BRAIN WO CON 06/12/2024 6:03 AM FINDINGS: Brain: There is no acute intracranial hemorrhage, cerebral edema, or midline shift. Chronic microvascular ischemic changes are seen in the periventricular white matter. Age-related cerebral and cerebellar volume loss is present. Cerebral ventricles: No hydrocephalus. Paranasal sinuses: There is no acute sinusitis. Mastoid air cells: The mastoid air cells are clear. Orbital cavities: The included orbital structures are unremarkable. Bones: Unremarkable. No acute fracture. Soft tissues: Unremarkable. Vasculature: Atherosclerotic calcifications are seen involving the cavernous carotid arteries. IMPRESSION: 1. No acute intracranial abnormality. 2. Atrophy and chronic deep white matter ischemic changes.
--- NOTE | 2024-12-20 23:51 | ECG_ITS ---
APPROVED REPORT Exam: Resting ECG HR:88 bpm ECG Measurements Heart Rate 88 AXES QRSd 106 QRS 86 QT 359 T 32 QTc 405 Conclusion ATRIAL FIBRILLATION LOW QRS VOLTAGE IN PRECORDIAL LEADS [QRS DEFLECTION < 1.0 mV IN CHEST LEADS] MODERATE ST DEPRESSION [0.05+ mV ST DEPRESSION] No STEMI Electronically signed by : DAILY DURAN, 12/21/2024 06:35:43
[2024-12-21] VITALS (9 sets, daily range): BP systolic 123–151; BP diastolic 70–108; PULSE 87–118; RESP 12–28; TEMP 36.3; O2SAT 94–97; BMI 40.3
--- NOTE | 2024-12-21 | CT_ITS ---
PROCEDURE INFORMATION: Exam: CTA Chest With Contrast Exam date and time: 12/21/2024 2:21 AM Age: 89 years old Clinical indication: Shortness of breath; Additional info: SOA hypoxia tachy rv borderline large on US TECHNIQUE: Imaging protocol: Computed tomographic angiography of the chest with contrast. Exam focused on the arteries. 3D rendering (Not supervised by radiologist): MIP and/or 3D reconstructed images were created by the technologist. Radiation optimization: All CT scans at this facility use at least one of these dose optimization techniques: automated exposure control; mA and/or kV adjustment per patient size (includes targeted exams where dose is matched to clinical indication); or iterative reconstruction. Contrast material: ISOVUE; Contrast volume: 70 ml; Contrast route: INTRAVENOUS (IV); COMPARISON: CT CHEST WO CON 12/21/2024 12:29 AM FINDINGS: Pulmonary arteries: No pulmonary embolus. Mild decreased contrast density within the left upper and left lower lobe arteries likely secondary to pulmonary compression. Aorta: Moderate atherosclerotic changes. No aortic aneurysm. No aortic dissection. Lungs: Right lower lobe calcified granuloma. Centrilobular emphysema. Mild compressive atelectasis of the left upper and bilateral lower lobes. Minimal ground-glass opacity in the lingula and bilateral lower lobes along mild interlobular septal thickening may represent mild pulmonary edema. Pleural spaces: Unchanged moderate loculated left-sided pleural effusion. Small right-sided pleural effusion. Heart: Biatrial enlargement. Coronary arteries: Moderate coronary artery calcifications. Lymph nodes: Unremarkable. No enlarged lymph nodes. Diaphragm: Hiatal hernia. Kidneys: Large left upper pole simple cortical renal cyst. Bones/joints: Moderate bilateral glenohumeral joint degenerative changes. Soft tissues: Unremarkable. IMPRESSION: 1. No pulmonary embolus. 2. Biatrial enlargement. 3. Additional findings unchanged. COMMENTS: Consistent with the [employer]'s Incidental Findings Committee white paper (J Am Andrade [employer]iol 2018): Any incidental renal lesion less than 1 cm or classified as too small to characterize, or any incidental cystic renal lesion characterized as simple-appearing, is likely benign. No follow-up imaging is recommended for these lesions per consensus recommendations based on imaging criteria.
--- NOTE | 2024-12-21 00:03 | [facility].EDCP ---
Discharge Plan Disposition Patient Disposition: Xfer Short-Term Hosp Condition: Serious Chief Complaint: Altered Mental Status Prescriptions Prescriptions: No Action hydrocortisone acetate [Anusol-HC] 25 mg suppository 25 mg DE HS Qty: 24 0RF Rx Instructions: 1 suppository per rectum nightly levothyroxine 25 mcg tablet 25 mcg PO DAILY Eliquis 2.5 mg tablet 2.5 mg PO BID isosorbide mononitrate 30 mg tablet extended release 24 hr 30 mg PO DAILY paroxetine HCl 20 mg tablet 20 mg PO DAILY dapagliflozin propanediol [Farxiga] 10 mg Tablet 10 mg PO DAILY 30 Days Qty: 30 0RF polyethylene glycol 3350 [HealthyLax] 17 gram Powder In Packet 17 g PO DAILY Qty: 30 0RF omeprazole 20 MG capsule,delayed release(DR/EC) 20 mg PO DAILY acetaminophen [Acetaminophen Extra Strength] 500 mg Tablet 500 mg PO Q4H PRN (Reason: Pain/fever) cyanocobalamin (vitamin B-12) 1,000 mcg/mL solution 1,000 mcg IM MONTHLY Patient Comments: INJECT 1 ML INTO A MUSCLE 1 TIME EACH WEEK metoprolol tartrate 50 mg Tablet 100 mg PO BID 30 Days Qty: 120 0RF bumetanide 1 mg tablet 1 mg PO BID Qty: 60 0RF levofloxacin 750 mg tablet 750 mg PO ONCE 1 Days Qty: 1 0RF Rx Instructions: due 06/16/24 to complete course levalbuterol HCl 1.25 mg/3 mL Solution For Nebulization 1.25 mg inhalation BIDRT 30 Days Qty: 180 0RF ipratropium bromide 0.02 % Solution 0.5 mg inhalation BIDRT 30 Days Qty: 150 0RF Referrals Follow up/Referrals: Provider,Referral, MD [Primary Care Provider] - See instructions Clinical Impressions Clinical Impression: Acute hypoxic respiratory failure, Anemia, Leukopenia, CHF exacerbation, Fluid overload, Kidney dysfunction Stand Alone Forms Stand Alone Forms: Transfer Record - ED Instructions Patient Instructions: DI for Altered Mental Status Print Language Print Language: Kinyarwanda Discharge ED Provider: Jose Medeiros General Chief Complaint: Altered Mental Status Stated Complaint: shortness of air Time Seen by Provider: 12/20/24 23:42 History of Present Illness HPI narrative: 89-year-old female with history of anemia, CKD, HFpEF, CHF, CAD presents to the ER from [facility] [place] via EMS. Reportedly EMS was called because the patient has been experiencing shortness of breath through the day they had administered a breathing treatment at the longterm which reportedly improved her oxygenation but she continued to experience shortness of breath so they called EMS for transportation to the hospital. Report from the longterm was that patient was alert and oriented x 4 and saturating as high as 95% on 4 L nasal cannula, however report from EMS is that patient is disoriented and sats have only been in the 80s with them. Patient's daughter was one of the EMS crew who brought the patient in. She states my mom does not even know me right now . She reports that the patient has had episodes like this in the past secondary to fluid overload. She states her legs are much more swollen than they normally are. She says patient used to be on Bumex because furosemide did not work very well with her kidney function, she is currently on torsemide per review of longterm records. Patient has no complaints of pain. She knows that she was being taken to the hospital and her own name but is otherwise disoriented. Reportedly no fevers, chest pain, vomiting or diarrhea, daughter does report that patient has had UTI in the past. Related Data Home Medications ?Medication ?Instructions ?Recorded ?Confirmed omeprazole 20 mg capsule,delayed 20 mg PO DAILY 12/01/20 07/19/24 release apixaban 2.5 mg tablet (Eliquis) 2.5 mg PO BID 12/29/22 07/19/24 levothyroxine 25 mcg tablet 25 mcg PO DAILY 12/29/22 07/19/24 isosorbide mononitrate 30 mg 30 mg PO DAILY 03/30/24 07/19/24 tablet,extended release 24 hr paroxetine HCl 20 mg tablet 20 mg PO DAILY 03/30/24 07/19/24 acetaminophen 500 mg tablet 500 mg PO Q4H PRN Pain/fever 06/12/24 07/19/24 (Acetaminophen Extra Strength) cyanocobalamin (vitamin B-12) 1,000 mcg IM MONTHLY 06/12/24 07/19/24 1,000 mcg/mL injection solution Previous Rx's ?Medication ?Instructions ?Recorded dapagliflozin propanediol 10 mg 10 mg PO DAILY 30 days #30 tabs 06/09/24 tablet (Farxiga) polyethylene glycol 3350 17 gram 17 g PO DAILY #30 ea 06/09/24 oral powder packet (HealthyLax) bumetanide 1 mg tablet 1 mg PO BID #60 tabs 06/15/24 ipratropium bromide 0.02 % 0.5 mg (2.5 mL) inhalation BIDRT 06/15/24 solution for inhalation 30 days #150 mL levalbuterol HCl 1.25 mg/3 mL 1.25 mg (3 mL) inhalation BIDRT 30 06/15/24 solution for nebulization days #180 mL levofloxacin 750 mg tablet 750 mg PO ONCE 1 day #1 tab 06/15/24 metoprolol tartrate 50 mg tablet 100 mg (2 x 50 mg) PO BID 30 days 06/15/24 #120 tabs hydrocortisone acetate 25 mg 25 mg DE HS #24 ea 07/21/24 rectal suppository (Anusol-HC) Allergies Allergy/AdvReac Type Severity Reaction Status Date / Time cefdinir Allergy Severe Hives Verified 07/19/24 09:39 iodine (IODINE) Allergy Severe S-ANAPHYLAX Verified 07/19/24 09:39 IS Sulfa (Sulfonamide Allergy Severe I-HIVES Verified 07/19/24 09:39 Antibiotics) (SULFA (SULFONAMIDE ANTIBIOTICS)) Penicillins (PENICILLINS) Allergy Intermediate I-RASH Verified 07/19/24 09:39 codeine (CODEINE) Allergy Unknown NA-HALLUCIN Verified 07/19/24 09:39 ATIONS hydrogen peroxide Allergy Unknown Other Verified 07/19/24 09:39 [facility] Disclaimer: The information contained in this section may have been updated after the patient was seen, as this information can be updated by other users. Medical History Normal colonoscopy Respiratory failure with hypoxia TIA (transient ischemic attack) Rapid atrial fibrillation Diverticulitis Anemia requiring transfusions Acute hypoxemic respiratory failure Acute on chronic diastolic CHF (congestive heart failure) SIRS (systemic inflammatory response syndrome) Aortic stenosis COPD (chronic obstructive pulmonary disease) with acute bronchitis Hypotensive episode COPD (chronic obstructive pulmonary disease) Hypoxia Subungual hematoma of left ring finger Gangrene of finger of left hand Acquired hypothyroidism Atrial fibrillation CKD (chronic kidney disease) CAD (coronary artery disease) Cellulitis of left ring finger Gastroenteritis Concussion without loss of consciousness Head contusion Facial contusion Congestive heart disease Pleural effusion Chronic anemia Renal insufficiency Anticoagulated on Coumadin Junctional bradycardia Surgical History Hx of cholecystectomy S/P lumpectomy, left breast Status post total hip replacement, right Family History Other Family history of diabetes mellitus type II Family history of hypertension Social History Smoking Status: Former smoker tobacco type: cigarettes second hand exposure: No alcohol intake: never counseling given: No substance use type: denies use current occupational status: retired Travel in the last 8 weeks: None household members: none housing: apartment caffeine: Yes Other Medical History Have you received the Flu Vaccine for this season: No Have you received the Pneumonia Vaccine: Yes ROS Obtained: Yes unobtainable due to mental status limited ROS in HPI Physical Exam General General appearance: other Comment: sleepy but arousable, chronically ill appearing, pale Head Head exam: atraumatic and normocephalic Eye Eye exam: Present PERRL and EOMI ENT ENT exam: Present mucous membranes moist Neck Neck exam: Present normal inspection and full ROM Chest Chest inspection: Present symmetric chest wall rise Respiratory Respiratory exam: Absent normal lung sounds bilaterally (diminished breath sounds throughout without wheezing ), respiratory distress, wheezes or stridor Cardiovascular Cardiovascular exam: Present tachycardia and irregular rhythm Abdominal Exam Abdominal exam: Present soft; Absent distention or tenderness Extremities Exam Extremities exam: Present full ROM and edema (+4 BLE pitting edema) Back Exam Back exam: Absent CVA tenderness (R) or CVA tenderness (L) Neurological Exam Neurological exam: Absent alert (Sleepy but arousable), oriented X3 (Oriented only to self and location) or motor sensory deficit Expanded Neurological Exam Coma scale eye opening: To voice Coma scale motor response: Obeys commands Coma scale verbal response: Confused Coma scale total: 13 Psychiatric Psychiatric exam: Present normal affect and normal mood Skin Skin exam: Present warm, dry and pallor HEART Score HEART Score HEART Score assessment performed?: Yes History (anamnesis): Slightly suspicious ECG: Non-specific disturbance Age: >65 years Risk factors: Atherosclerosis history Troponin: > 3x normal limit HEART Score: 7 Procedures Miscellaneous Procedure Procedure Performed: Limited Cardiac Ultrasound Indication: Shortness of breath, swelling Identified cardiac views: [-Cardiac parasternal long axis] [-Cardiac parasternal short axis] [-Cardiac apical four-chamber] [-Cardiac subxiphoid] Findings: Cardiac activity present with no gross wall motion abnormality, no pericardial effusion, RV to LV ratio nearly 1:1. Impression: - Cardiac activity present with no gross wall motion abnormality, no pericardial effusion, right ventricle borderline enlarged but no overt right heart strain Images were saved to permanent archive The study was technically adequate CPT: 78639 This study was performed by me, and I personally interpreted all images/videos. Based on my clinical judgement, these images were adequate and did not necessitate further imaging. Critical Care Critical Care Time Critical Care Time: Yes Attestation: On 12/20/24, the high probability of a clinically significant, sudden or life threatening deterioration of the following system(s) (cardiac, respiratory, renal) required my full and direct attention, intervention and personal management. The time I documented below is in addition to time spent performing reported procedures but includes the following listed in this critical care notation. Total Time Total Critical Care Time: 95 Medical Decision Making Medical Records Medical records reviewed: Yes I reviewed the patient's medical records. MR Comment: Patient was admitted to our facility in June with fluid overload, diuresed on Bumex. Review of previous CTs demonstrates patient has had previous pleural effusion. Dirk Inquiry Pt receiving controlled substance: No Vital Signs Vital Signs: 12/21/24 00:11 12/21/24 01:02 12/21/24 01:13 Temperature 97.4 F L Temperature Source Oral Pulse Rate 87 103 H Pulse Rate [Radial] 93 H Respiratory Rate 12 24 Blood Pressure 151/86 H Blood Pressure [Right Arm] 137/70 Blood Pressure Mean Blood Pressure Mean [Right Arm] 92 Blood Pressure Position Blood Pressure Position [Right Arm] Supine 02 Sat by Pulse Oximetry 95 97 Oxygen Delivery Method Nasal Cannula Oxygen Flow Rate (LPM) 4 12/21/24 01:31 12/21/24 01:41 12/21/24 02:31 Temperature Temperature Source Pulse Rate 114 H 118 H 101 H Pulse Rate [Radial] Respiratory Rate 22 24 26 H Blood Pressure 142/108 H 129/80 123/89 Blood Pressure [Right Arm] Blood Pressure Mean 119 96 Blood Pressure Mean [Right Arm] Blood Pressure Position Sitting Blood Pressure Position [Right Arm] 02 Sat by Pulse Oximetry 96 96 97 Oxygen Delivery Method Nasal Cannula Nasal Cannula Nasal Cannula Oxygen Flow Rate (LPM) 4 4 4 Lab Data Labs: Lab Results 12/20/24 23:47: POC Glucose 119 H 12/21/24 00:08: Urine Color Yellow, Urine Appearance Clear, Urine pH 6.0, Ur Specific [place] 1.020, Urine Protein Negative, Urine Glucose (UA) Negative, Urine Ketones Negative, Urine Blood Negative, Urine Nitrate Negative, Urine Bilirubin Negative, Urine Urobilinogen 0.2, Ur Leukocyte Esterase Negative, Urine WBC Occasional, Ur Squamous Epith Cells 3-5, Urine Bacteria Trace, Urine Opiates Screen Negative, Urine Methadone Screen Negative, Ur Barbituates Screen Negative, Ur Phencyclidine Scrn Negative, Ur Amphetamines Screen Negative, U Benzodiazepines Scrn Negative, Urine Cocaine Screen Negative, U Marijuana (THC) Screen Negative 12/21/24 00:10: WBC 3.7 L, RBC 2.92 L, Hgb 7.2 L, Hct 25.9 L, MCV 88.7, MCH 24.7 L, MCHC 27.8 L, RDW 18.9 H, Plt Count 235, MPV 9.7, Neut % (Auto) 66.4, Lymph % (Auto) 14.2, [place] % (Auto) 15.8 H, Eos % (Auto) 2.5, Baso % (Auto) 0.8, Neut # (Auto) 2.4, Lymph # (Auto) 0.5 L, [place] # (Auto) 0.6, Eos # (Auto) 0.1, Baso # (Auto) 0.0, D-Dimer 0.79 H, VBG pH 7.22 L, VBG pCO2 68.3 H, VBG pO2 42.8 H, VBG HCO3 27.5, VBG Total CO2 29.5 H, VBG O2 Saturation 73.3 H, VBG Base Excess -0.2, VBG Lactic Acid 2.2 H, Sodium 140, Potassium 4.8, Chloride 102, Carbon Dioxide 28, Anion Gap 14.8, BUN 43 H, Creatinine 3.20 H, Estimated Creat Clear 21, Estimated GFR 14 L*, Est GFR ( Amer) 17 L*, Glucose 115 H, Lactate 1.6, Calcium 8.8, Magnesium 2.8 H, Total Bilirubin 0.5, AST 20, ALT 13, Alkaline Phosphatase 145 H, Troponin I 0.15 H, NT-Pro-B Natriuret Pep 33396 H, Total Protein 6.3, Albumin 3.3 L, Globulin 3.0, Albumin/Globulin Ratio 1.1, TSH 4.16, Free T4 1.35 12/21/24 00:48: Blood Type O Positive, Antibody Screen Negative 12/21/24 00:10 12/21/24 00:10 Response Orders (Tests/Meds): ED MEDICATIONS Discontinued Medications Generic Name Dose Route Start Last Admin Trade Name Freq PRN Reason Stop Dose Admin Albuterol/Ipratropium 9 ml 12/21/24 00:53 12/21/24 01:13 Ipratropium/Albuterol 3 Ml Neb IH 12/21/24 00:54 9 ml ONCE ONE Administration Bumetanide 1 mg 12/21/24 00:57 12/21/24 01:02 Bumetanide 1mg/4ml Vial IV 12/21/24 00:58 1 mg ONCE ONE Administration Diphenhydramine HCl 25 mg 12/21/24 00:54 12/21/24 01:02 Diphenhydramine 50mg/Ml Vial IV 12/21/24 00:55 25 mg ONCE ONE Administration Lactated Ringer's 250 mls @ 250 mls/hr 12/21/24 01:14 12/21/24 02:11 Lactated Ringer's 500ml IV 12/21/24 02:13 250 mls/hr .Q1H ONE Administration Iopamidol 70 ml 12/21/24 02:26 12/21/24 02:27 Iopamidol-370 (76%);100ml Bottle IV 12/21/24 02:27 70 ml ONCE ONE Administration Methylprednisolone Sodium Succinate 125 mg 12/21/24 00:54 12/21/24 01:02 Methylprednisolone Sod Succ 125mg Vial IV 12/21/24 00:55 125 mg ONCE ONE Administration Sodium Chloride 50 ml 12/21/24 02:26 12/21/24 02:27 0.9 % Sodium Chloride 50 Ml Vial IV 12/21/24 02:27 50 ml ONCE ONE Administration Sodium Chloride 10 ml 12/21/24 02:26 12/21/24 02:27 Sodium Chloride 0.9% 10ml Syr (Rad Only) IV 12/21/24 02:27 10 ml ONCE ONE Administration ORDERS Category Date Time Status Type and Screen Stat BBK 12/21/24 00:[address] angio chest PE protocol Stat Cat Scan 12/21/24 00:[address] chest wo con Stat Cat Scan 12/21/24 00:[address] head/brain wo con Stat Cat Scan 12/20/24 23:51 Completed POCUS Point of Care (ER Only) Stat Exams 12/20/24 23:42 Completed XR chest portable Stat Exams 12/20/24 23:49 Completed BNP [NT Pro Brain Natriuretic Pep.] Stat Lab 12/20/24 23:49 Completed CBC w/Auto Diff [Complete Blood Count Auto Diff] Stat Lab 12/20/24 23:49 Completed Comprehensive Metabolic Panel Stat Lab 12/20/24 23:49 Completed D-Dimer Stat Lab 12/21/24 00:10 Completed Drug Screen,Urine Stat Lab 12/21/24 00:08 Completed Free T4 (Free Thyroxine) Stat Lab 12/20/24 23:49 Completed Lactic Acid Stat Lab 12/21/24 00:10 Completed Magnesium Stat Lab 12/20/24 23:49 Completed POC Glucose,Bedside Routine Lab 12/20/24 23:47 Completed Thyroid Stimulating Hormone Stat Lab 12/20/24 23:49 Completed Troponin I Q3H Lab 12/21/24 03:03 Received Troponin I Q3H Lab 12/21/24 06:00 Ordered Troponin I Stat Lab 12/20/24 23:49 Completed Urinalysis and Microscopic Stat Lab 12/21/24 00:08 Completed Blood Culture Stat Micro 12/21/24 00:23 Received VBG [Venous Blood Gas] Stat RT 12/21/24 02:39 Ordered Venous Blood Gas Stat RT 12/21/24 00:10 Completed MDM Narrative Medical Decision Narrative: In summary, this 89-year-old female presents to the emergency department today with concerns of shortness of breath, altered mental status. On initial evaluation patient is intermittently tachycardic with atrial fibrillation consistent with previous known diagnosis, afebrile, normotensive, patient has evidence of fluid overload with pitting edema, she has diminished breath sounds throughout. Differential diagnosis includes but is not limited to fluid overload, ACS, PE, hypercarbia, kidney dysfunction, I considered sepsis, urinary tract infection, pneumonia, among others. Ruling out the most morbid conditions drove my assessment. Broad workup including CT imaging, serum labs, urine studies, [id number] ultrasound have been ordered ECG personally interpreted demonstrates atrial fibrillation, rate 88, normal axis, normal QTc, no STEMI. [id number] ultrasound personally performed and interpreted at bedside does not demonstrate pericardial effusion, patient has no gross wall motion abnormality of the heart, RV to LV ratio is borderline 1:1, no overt right heart strain, lungs with B-lines, Effusion on the L VBG resulted with pH 7.22, hypercarbia, lactic slightly elevated at 2.2, chemistry lactic pending. Patient's hypercarbia is being treated with DuoNeb. Chemistry lactic 1.6. I had initially ordered CTA PE however patient has significant kidney dysfunction and also has allergy to iodine contrast requiring pretreatment. I discussed this with the patient's daughter who states patient has previously tolerated contrast with medication pretreatment and she is comfortable with the patient receiving contrast knowing that it could cause reaction. I am not going to do a contrasted exam initially, I ordered a D-dimer instead to screen the patient for possible PE because I do not want to fluid overload the patient with additional IV medications who already is clinically very overloaded. Chest x-ray personally interpreted demonstrates pleural effusion, pulmonary edema. Radiology read pending. Patient has multiple abnormalities on the chest x-ray and I would like to have better visualization of those so CT chest without contrast is being performed initially. CT head personally interpreted does not demonstrate acute intracranial abnormality, see radiology read for final interpretation. CT chest without contrast demonstrates bilateral effusions, left greater than right, pulmonary edema. No infectious-appearing infiltrate. See radiology read which is pending at this time. IV Bumex administered for treatment of fluid overload. BNP 43,100. D-dimer resulted slightly elevated at 0.79, patient also has troponin elevation at 0.15 concerning for NSTEMI versus right heart strain though I believe this is likely evidence of the patient's hypoxia that was occurring at the longterm. Because of the troponin elevation and slightly elevated D-dimer as well as the findings on cardiac ultrasound I do believe the CTA PE is very important for this patient to evaluate for possible pulmonary embolism. She is being pretreated with Solu-Medrol and Benadryl. Unfortunately patient has poor kidney function so I discussed the risks of contrast with the patient's daughter. She believes that the risk outweighs the benefit at this time since patient had an acute onset of shortness of breath she would prefer to know whether the patient has PE and take the potential risk of further kidney damage with contrast. We also discussed the possibility of patient potentially needing transfer if she does not have good urine output with the IV Bumex and since she cannot receive a significant fluid bolus with the IV contrast. Small bolus will be administered to buffer the contrast adminstration and hopefully protect the kidneys. UA negative for findings of infection. UDS negative. CBC demonstrates mild leukopenia, patient does have anemia with hemoglobin 7.2, we will not intervene on this at this time since in the past she has had transfusion associated circulatory overload and her hemoglobin is above 7.0 at this time. With her leukopenia I had considered the possibility of sepsis but with her reassuring chemistry lactic and no source of infection at this time, I believe there is more risk of fluid overload than benefit from empiric antibiotic treatment at this time since urine is negative and lungs do not demonstrate a source of infection. He also is afebrile. We also have other explanations for the patient to be tachycardic beyond sepsis. CTA PE personally interpreted demonstrates pleural effusion, there is no saddle PE, there are findings of pulmonary edema. See radiology read for final interpretation. Since the IV Bumex has been administered, in the last 2 hrs patient has had 0mL of urine output. I believe patient requires transfer to higher level of care with dialysis capabilities for management of fluid overload. Repeat VBG and troponin are currently pending. 0308 [facility] called to initiate the transfer process. [address] Gutierrez with nephrology. She agreed to help care for the patient when she arrives to [facility]. I then spoke with Shae Rosario NP with the hospitalist service. She graciously accepted the patient for admission to [facility] telemetry under Dr. Ashley. Awaiting a bed assignment at this time. Repeat VBG demonstrates patient's pH has normalized as has her hypercarbia. Repeat troponin 0.17. This is not a significant change. Reassuring that patient is not having an ongoing cardiac event. This also further supports my hypothesis that her troponin elevation was related to hypoxia. Patient's lactic on VBG remains elevated but I do not believe this is intervenable at this time and I am reassured by the chemistry lactic. I updated the patient's daughter on patient's acceptance for transfer to [facility] and updated her on the labs and imaging findings so far. She was grateful for the update and to know where the patient is going. She is comfortable with this plan. Bed assignment provided. Patient transferred to [facility] in stable condition by ALS ambulance.
--- NOTE | 2024-12-21 00:13 | CT_ITS ---
PROCEDURE INFORMATION: Exam: CT Chest Without Contrast; Diagnostic Exam date and time: 12/21/2024 12:29 AM Age: 89 years old Clinical indication: Shortness of breath; Additional info: SOA hypoxia, significant rotation on XR TECHNIQUE: Imaging protocol: Diagnostic computed tomography of the chest without contrast. Radiation optimization: All CT scans at this facility use at least one of these dose optimization techniques: automated exposure control; mA and/or kV adjustment per patient size (includes targeted exams where dose is matched to clinical indication); or iterative reconstruction. COMPARISON: CT CHEST WO CON 06/12/2024 5:14 PM FINDINGS: Lungs: Right lower lobe calcified granuloma. Centrilobular emphysema. Mild compressive atelectasis of the left upper and left lower lobes. Minimal ground-glass opacity in the lingula and bilateral lower lobes along mild interlobular septal thickening may represent mild pulmonary edema. Pleural spaces: Moderate loculated left-sided pleural effusion. Small right-sided pleural effusion. Heart: Biatrial enlargement. Coronary arteries: Moderate coronary artery calcifications. Lymph nodes: Unremarkable. No enlarged lymph nodes. Vasculature: Aortic and mitral valve calcifications Diaphragm: Hiatal hernia. Kidneys: Large left upper pole simple cortical renal cyst. Bones/joints: Moderate bilateral glenohumeral joint degenerative changes. Soft tissues: Unremarkable. IMPRESSION: 1. Moderate loculated left-sided pleural effusion. 2. Small right-sided pleural effusion. 3. Minimal ground-glass opacity in the lingula and bilateral lower lobes along mild interlobular septal thickening may represent mild pulmonary edema. COMMENTS: Consistent with the [employer]'s Incidental Findings Committee white paper (J Am Andrade Radiol 2018): Any incidental renal lesion less than 1 cm or classified as too small to characterize, or any incidental cystic renal lesion characterized as simple-appearing, is likely benign. No follow-up imaging is recommended for these lesions per consensus recommendations based on imaging criteria.
[2024-12-21 00:19] LABS: Microscopic, Urine URINE MICROSCOPIC (MICROSCOPIC)
[2024-12-21 00:23] LABS: Appearance,Urine CLEAR (Clear); Bilirubin,Urine Negative (Negative); Blood, Urine Negative (Negative); Color,Urine YELLOW (Yellow); Glucose,Urine (UA) Negative (Negative); Ketones,Urine Negative (Negative); Leukocyte Esterase,Urine Negative (Negative); Nitrate,Urine Negative (Negative); Protein,Urine Negative (Negative); Urobilinogen,Urine 0.2 EU/dl (0.2)
[2024-12-21 00:25] LABS: VBG Base Excess -0.2 mmol/L (-2.4-2.3); VBG HCO3 27.5 mmol/L (23-30); VBG Oxygen Saturation 73.3 % (50-70); VBG PH 7.22 mmol/L (7.31-7.41); VBG PO2 42.8 mmol/L (28-40); VBG Total CO2 29.5 mmol/L (23-27)
[2024-12-21 00:28] LABS: Hematocrit 25.9 % (37.0-47.0); Hemoglobin 7.2 g/dL (12.2-16.2); Red Blood Count 2.92 M/mm3 (4.20-5.40); White Blood Count 3.7 K/mm3 (4.8-10.8)
[2024-12-21 00:29] LABS: Basophils % 0.8 % (0.1-2.0); Eosinophils # 0.1 K/mm3 (0.0-0.4); Eosinophils % 2.5 % (0.1-12.0); Lactate Venous 2.2 mmol/L (0.4-2.0); Lymphocytes # 0.5 K/mm3 (0.7-4.5); Lymphocytes % 14.2 % (10-50); Mean Corpuscular HGB Conc 27.8 g/dL (31.8-35.4); Mean Corpuscular Hemoglobin 24.7 pg (27.0-31.2); Mean Corpuscular Volume 88.7 fl (81-99); Mean Platelet Volume 9.7 fl (7.4-10.4); Monocytes # 0.6 K/mm3 (0.1-1.0); Monocytes % 15.8 % (1.7-9.3); Neutrophils # 2.4 K/mm3 (1.8-7.8); Neutrophils % 66.4 % (37.0-80.0); Nucleated Red Blood Cells # 0.03 10^3/uL; Nucleated Red Blood Cells % 0.8 %; Platelet Count 235 K/mm3 (142-424); Red Cell Distribution Width 18.9 % (11.5-17.5); Red Cell Distribution Width-SD 60.3 fL; VBG PCO2 68.3 mmol/L (35-51)
[2024-12-21 00:33] LABS: Alanine Aminotransferase 13 U/L (12-78); Albumin Level 3.3 g/dl (3.5-5.0); Albumin/Globulin Ratio 1.1 (1.1-1.8); Alkaline Phosphatase 145 U/L (38-126); Anion Gap 14.8 mEq/L (5-15); Aspartate Amino Transferase 20 U/L (14-36); Bilirubin,Total 0.5 mg/dl (0.2-1.3); Blood Urea Nitrogen 43 mg/dl (7-17); Calcium 8.8 mg/dl (8.4-10.2); Carbon Dioxide 28 mmol/L (22.0-30.0); Chloride 102 mmol/L (98-107); Creatinine Clearance Estimated 21 mL/min (50-200); Estimated Glomerular Filt Rate 14 ml/min (>60); GFR (African American) 17 ML/MIN (>60); Glucose 115 mg/dl (74-100); Magnesium 2.8 mg/dl (1.6-2.3); Potassium 4.8 mmoL/L (3.5-5.1); Sodium 140 mmol/L (136-145); Total Protein,Serum 6.3 g/dl (6.3-8.2)
[2024-12-21 00:37] LABS: D-Dimer 0.79 ug/mL (0.0-0.5)
[2024-12-21 00:38] LABS: Bacteria,Urine Trace /lpf; WBC,Urine Occasional #/hpf (0-3)
--- NOTE | 2024-12-21 00:38 | PC.NURSE ---
vbg results reported to Dr Medeiros.
[2024-12-21 00:46] LABS: Troponin I 0.15 ng/ml (0.00-0.034)
[2024-12-21 00:52] LABS: Free T4 (Free Thyroxine) 1.35 ng/dl (0.78-2.19)
[2024-12-21] MEDS: diphenhydrAMINE 50MG/ML VIAL 25 MG IV (01:02)
[2024-12-21] MEDS: METHYLPREDNISOLONE SOD SUCC 125MG VIAL 125 MG IV (01:02)
[2024-12-21] MEDS: BUMETANIDE 1MG/4ML VIAL 1 MG IV (01:02)
[2024-12-21 01:03] LABS: POC Glucose,Bedside 119 (70-110)
[2024-12-21 01:05] LABS: Thyroid Stimulating Hormone 4.16 uIU/mL (0.465-4.68)
[2024-12-21] MEDS: IPRATROPIUM/ALBUTEROL 3 ML NEB 9 ML IH (01:13)
[2024-12-21 01:16] LABS: NT Pro Brain Natriuretic Pep. 43100 pg/mL (0-450)
[2024-12-21 01:22] LABS: Lactic Acid 1.6 mmol/L (0.7-2.1)
[2024-12-21 01:41] LABS: Amphetamine/Metha Screen,Urine Negative ng/ml (<1000); Barbiturates Screen,Urine Negative ng/ml (<200)
[2024-12-21 01:42] LABS: Benzodiazepines Screen,Urine Negative ng/ml (<200); Cannabinoid Screen,Urine Negative ng/ml (<50)
[2024-12-21 01:43] LABS: Cocaine Screen,Urine Negative ng/ml (<300)
[2024-12-21 01:44] LABS: Methadone Screen,Urine Negative ng/ml (<300); Phencyclidine Screen,Urine Negative ng/ml (<25)
[2024-12-21 01:45] LABS: Opiate Screen,Urine Negative ng/ml (<300)
[2024-12-21] MEDS: RINGERS SOLUTION,LACTATED 250 ML IV (02:11)
--- NOTE | 2024-12-21 02:13 | PC.NURSE ---
Pt fluids hung to await for her Ct scan. Pt taken to ct at this time
[2024-12-21] MEDS: SODIUM CHLORIDE 0.9% 10ML SYR (RAD ONLY) 10 ML IV (02:27)
[2024-12-21] MEDS: IOPAMIDOL-370 (76%);100ML BOTTLE 70 ML IV (02:27)
[2024-12-21] MEDS: 0.9 % SODIUM CHLORIDE 50 ML VIAL IV (02:27)
--- NOTE | 2024-12-21 02:30 | PC.NURSE ---
pt returned from radiology without incident.
[2024-12-21 03:07] LABS: VBG HCO3 24.6 mmol/L (23-30); VBG Oxygen Saturation 95.2 % (50-70); VBG PCO2 45.8 mmol/L (35-51); VBG PH 7.35 mmol/L (7.31-7.41); VBG PO2 80.8 mmol/L (28-40)
[2024-12-21 03:10] LABS: Lactate Venous 2.5 mmol/L (0.4-2.0)
[2024-12-21 03:32] LABS: Troponin I 0.17 ng/ml (0.00-0.034)
--- NOTE | 2024-12-21 03:44 | PC.NURSE ---
accepted to [facility], awaiting call for bed assignment.
--- NOTE | 2024-12-30 08:23 | PC.NURSE ---
Due to pt being transferred to [facility] I faxed the final blood culture results to [facility]. Confirmation received.
== END 2024-12-21 05:04 | disposition short-term general hospital (02) ==
PROVIDERS: Emergency Provider Emergency Medicine
DX: J96.01 Acute respiratory failure with hypoxia (principal); I50.9 Heart failure, unspecified; E87.70 Fluid overload, unspecified; D64.9 Anemia, unspecified; D72.819 Decreased white blood cell count, unspecified; N28.9 Disorder of kidney and ureter, unspecified; R60.0 Localized edema; R00.0 Tachycardia, unspecified
CPT/HCPCS: 51702; 70450; 71045; 71250; 71275; 80053; 80307; 81001; 82803; 82962; 83605; 83735; 83880; 84439; 84443; 84484; 85025; 85378; 86850; 87040; 93005; 96361; 96374; 96375; 99291; J1200; J1939; J2919; J7120; Q9967